=== PATIENT | female | born 1975 | race Caucasian/White ===

== ENCOUNTER 2019-09-14 20:40 | Emergency (ER) | payer MEDICARE, OTHER, SELFPAY ==
[2019-09-14 20:53] VITALS: BP 146/80; PULSE 72; RESP 20; TEMP 36.7; O2SAT 98; BMI 44.4
--- NOTE | 2019-09-14 20:56 | HMH.EDUTC ---
[facility] [place]ression: Strep throat, Abrasion Disposition: Home, Self-Care Condition on Discharge: Good Instructions: Strep Throat (Alternative Therapy), Strep Throat, DI for Strep Throat Additional Instructions: *Monitor Temp, Over the counter Motrin or Tylenol as directed/as needed Tylenol every 4 hours and Motrin every 6 hours (as long as your family doctor has told you that you can take it) for fever or pain. and straight to ER if unable to lower temp less than 101.0 after medication given *Warm salt water gargles may help to soothe the throat *Throat Lozenges *Warm fluids *Sleep elevated *Humidifier/Vaporizer *Flonase 2 sprays in each nostril daily but be aware that it may take 2-3 days before you notice improvement *If you did not take Penicillin shot or was unable to, start taking antibiotic immediately and make sure that you take it for the FULL length of time although you should start to feel better in 24-48 hours *change toothbrush and toothpaste 24-48 hours after starting to take antibiotics so you do not reinfect yourself Monitor Temp. Tylenol and/or Ibuprofen as needed. ER if fever is no less than 101 despite alternating Tylenol and Ibuprofen * Encourage fluids, water, Gatorade, powerade, pedialyte if /toddler/or child *Cold fluids, popsicles and ice cream may feel good on his throat Follow up IMMEDIATELY for new or worsening symptoms or no Noticeable improvement over the next 48-72 hours. 911 for difficulty breathing or swallowing Prescriptions: Bacitracin [Bacitracin Oint 0.9GM UDP] 1 each TP TID 7 Days #21 packet Transmission Status: Received by [facility] #[id number] Referrals: Justin Junior [Primary Care Provider] - As needed Time of Disposition: 21:05 Medical Decision Making - Gary Inquiry Pt receiving controlled substance: No Gary was queried for this patient: No Vital Signs: 09/14/19 20:53 09/14/19 21:10 Temperature 98.1 F 98.1 F Temperature Source Oral Pulse Rate 72 Pulse Rate [Right Brachial] 72 Respiratory Rate 20 20 Blood Pressure 146/80 H Blood Pressure [Right Arm] 146/80 H Blood Pressure Mean [Right Arm] 102 Blood Pressure Source [Right Arm] Automatic Cuff Blood Pressure Position [Right Arm] Sitting 02 Sat by Pulse Oximetry 98 Oxygen Delivery Method Room Air - Lab Data Lab results reviewed: Yes: I reviewed the patient's lab results. Lab Results 09/14/19 20:42: Strep Scn Rapid Clinic Positive A Orders (Tests/Meds): ED MEDICATIONS Discontinued Medications Generic Name Dose Route Start Last Admin Trade Name Paco PRN Reason Stop Dose Admin Penicillin G Benzathine 1,200,000 unit 09/14/19 20:58 09/14/19 21:00 Bicillin La 1,200,000 Units/2ml Syringe IM 09/14/19 20:59 1,200,000 unit ONCE ONE Administration Protocol - Reevaluation(s) Time: 21:02 Reevaluation #1: Discussed medication and patient advised that she is not allergic to PCN and has taken it before [facility] [place] - General Stated complaint: Sore throat Time Seen by Provider: 09/14/19 20:55 Mode of Arrival: Ambulatory Source of Information: Patient Limitations: No Limitations Description of Symptoms (Recalled from Triage Doc. by RN): PATIENT C/O SORE THROAT, COUGH, HEADACHES, AND TIREDNESS X 3 DAYS. DENIES FEVER. DENIES ANY KNOWN SICK CONTACTS HEENT Symptoms (Recalled from RN notes): Yes Resp Symptoms (Recalled from RN notes): Yes Skin Symptoms (Recalled from RN notes): No MS Symptoms (Recalled from RN notes): No Functional Status (Recalled from RN notes): WNL - History of Present Illness Provider Complaint: Patient states that she has been having sore throat that has got worse over the last few days States that she has also been feeling tired and having headaches States that she wasnt sure if she had allergies or something else so she came in to get checked when her throat was hurting worse this evening. Also wants to have abrasion looked at on h
[2019-09-14 20:59] LABS: UTC Strep Screen (Rapid) Positive (Negative)
[2019-09-14 21:10] VITALS: BP 146/80; PULSE 72; RESP 20; TEMP 36.7; O2SAT 98
== END 2019-09-14 21:20 | disposition home or self-care (01) ==
PROVIDERS: Emergency Provider Nurse Practitioner; PCP Pediatrics
DX: J02.0 Streptococcal pharyngitis (principal); S80.811A Abrasion, right lower leg, initial encounter; W26.8XXA Contact with other sharp object(s), not elsewhere classified, initial encounter; Y92.019 Unspecified place in single-family (private) house as the place of occurrence of the external cause
CPT/HCPCS: G0463; 87880; 96372; 99202; J0561

== ENCOUNTER 2019-10-07 18:00 | Emergency (ER) | payer MEDICARE, OTHER, SELFPAY ==
[2019-10-07 18:16] VITALS: BP 144/76; PULSE 71; RESP 20; TEMP 36.8; O2SAT 98; BMI 43.2
--- NOTE | 2019-10-07 18:23 | HMH.EDUTC ---
[facility] [place]: Strep throat Disposition: Home, Self-Care Condition on Discharge: Good Instructions: Strep Throat, Diarrhea, DI for Strep Throat, DI for Cough -- Adult, DI for Nausea -- Adult, Nausea and Vomiting-Adult, Ondansetron, Dicyclomine, Preventing the Spread of Coronavirus Discharge Instructions Additional Instructions: *If you did not take Penicillin shot or was unable to, start taking antibiotic immediately and make sure that you take it for the FULL length of time although you should start to feel better in 24-48 hours *change toothbrush and toothpaste 24-48 hours after starting to take antibiotics so you do not reinfect yourself Monitor Temp. Tylenol and/or Ibuprofen as needed. ER if fever is no less than 101 despite alternating Tylenol and Ibuprofen * Encourage fluids, water, Gatorade, powerade, pedialyte if infant/toddler/or child *Cold fluids, popsicles and ice cream may feel good on his throat ? Drink extra fluids with and between meals. If you have difficulty drinking, try very small amounts of water or suck on ice chips. ? Avoid fruit juices, as these do not replace minerals and can actually increase diarrhea. ? Children and adults can use sports drinks to replenish electrolytes. Younger children and infants should use products formulated for children, like oral rehydration solutions. ? Eat food in small amounts and let your stomach recover. ? Get lots of rest. You may feel tired or weak. ? No greasy or fried foods for the next 24-48 hours BRAT diet Bananas Rice Apples and Herald ? Make sure to drink plenty of liquids ? Return if needed ? Straight to ER if any life threatening symptoms ? Zofran as prescribed ? You was given an outpatient order for diarrhea panel, please collect specimen and bring back to outpatient lab then call back to the [facility] or follow up with family doctor for results ? Follow up with family doctor in the next 48-72 hours if no improvement or any worsening of symptoms Go home and self isolate as advised in [facility], you was given hand out with what to do, Call back to [facility] on Wednesday to see if your results are back. Follow up with Family doctor if no improvement or any worsening of symptoms Prescriptions: Ondansetron [Zofran 4mg ODT] 4 mg PO Q8HP PRN #12 tab.rapdis PRN Reason: Nausea Transmission Status: Received by [facility] # Dicyclomine HCl [Bentyl 10mg capsule] 10 mg PO TID PRN #15 cap PRN Reason: Cramping Transmission Status: Received by [facility] # Cefdinir [Omnicef 300mg Capsule] 300 mg PO BID #20 cap Transmission Status: Received by [facility] # Benzonatate [Tessalon Perle 100mg Cap*] 100 mg PO TID PRN #30 cap PRN Reason: Cough Transmission Status: Received by [facility] # Referrals: Justin Junior [Primary Care Provider] - As needed Time of Disposition: 18:56 Medical Decision Making - Gary Inquiry Pt receiving controlled substance: No Gary was queried for this patient: No Vital Signs: 10/07/19 18:16 Temperature 98.3 F Temperature Source Oral Pulse Rate [Left Brachial] 71 Respiratory Rate 20 Blood Pressure [Left Arm] 144/76 H Blood Pressure Mean [Left Arm] 98 Blood Pressure Source [Left Arm] Automatic Cuff Blood Pressure Position [Left Arm] Sitting 02 Sat by Pulse Oximetry 98 Oxygen Delivery Method Room Air - Lab Data Lab results reviewed: Yes: I reviewed the patient's lab results. Lab Results 10/07/19 18:15: Strep Scn Rapid Clinic Negative Orders (Tests/Meds): ED MEDICATIONS Generic Name Dose Route Start Last Admin Trade Name Freq PRN Reason Stop Dose Admin Cefdinir 300 mg 10/08/19 18:46 Omnicef 300mg Capsule PO 10/08/19 18:47 ONCE ONE Protocol Discontinued Medications Generic Name Dose Route Start Last Admin Trade Name Freq PRN Reason Stop Dose Admin Dicyclomine HCl 10 mg 10/07/19 18:45 Bentyl 10mg Capsule PO 10/07/19 18:46 ON
[2019-10-07 19:09] VITALS: BP 144/76; PULSE 71; RESP 20; TEMP 36.8; O2SAT 98
[2019-10-07 21:15] LABS: UTC Strep Screen (Rapid) Positive (Negative)
[2019-10-10 09:41] LABS: Covid-19 Nasal PCR Sendout UK NOT DETECTED
== END 2019-10-07 19:12 | disposition home or self-care (01) ==
PROVIDERS: Emergency Provider Nurse Practitioner; PCP Pediatrics
DX: J02.0 Streptococcal pharyngitis (principal)
CPT/HCPCS: G0463; 87880; 99202; U0003

== ENCOUNTER → 2020-01-25 12:47 | Outpatient (POV) | payer MEDICARE, OTHER, SELFPAY ==
[2020-01-25 13:28] VITALS: BP 144/74; PULSE 74; RESP 18; O2SAT 98; BMI 39.5
--- NOTE | 2020-01-25 15:21 | HMH.PMCON ---
Assessment and Plan (1) Low back pain Status: Acute Category: Medical Code(s): M54.5 - Low back pain (2) Lumbar radiculopathy Status: Acute Category: Medical Code(s): M54.16 - Radiculopathy, lumbar region - Assessment and plan all Dx Assessment and Plan for all problems:: We will schedule the patient for an MRI of her lumbar spine. We will plan to see her back in the clinic after her MRI to discuss a further plan of care and discuss her MRI results. Patient has been instructed to contact clinic if she has any concerns before next appointment. The patient and I specifically discussed risk factors for COVID19. These risks include, but are not limited to age greater than 60, heart or lung disease, diabetes, immunosuppression, and travel. We also discussed NSAIDs may worsen COVID19 infection or symptoms. Patient should not use NSAIDs to treat COVID19 signs or symptoms. Patient was also informed that any type of corticosteroid of any form (oral or injection) will decrease the patient's immune system response and may increase the likelihood of COVID19 infection and symptoms. Dr. Marshall has reviewed this note and agrees with this plan of care. This note was dictated using voice recognition software and make contain errors or omissions. HPI - Data of Consult Patient: new to practice Consult date: 01/25/20 Requesting Physician: Alie Cotter APRN Primary Care Provider: Referral Provider, - Consult Narrative Reason for consult: Low back pain, right leg pain, bilateral hip pain History of present illness: Ms. Liriano is a 44 year old female who presents today for consultation for low back pain with radiation into her bilateral hips, right leg, and bilateral buttocks. Patient says she has had this pain for the last 3 years which has been intermittent until the last few months. Now the pain is consistent. She previously lived in [place] where she had multiple rounds of injections there along with physical therapy for greater than 6 weeks. Patient did not get much relief with the injections or with physical therapy. She has taken Flexeril and diclofenac with no relief. She is also try to continued home stretching program with ice and heat therapies with no relief. Patient does have numbness and tingling that is going down to her right leg and into her right foot. She says this is new onset. She has not had any imaging of her spine. CC: Alie Cotter APRN [facility] History I have reviewed the patient's past medical history: Yes Medical History: Reports:: Hypertension Denies:: Cancer, Diabetes Mellitus Type 1, Diabetes Mellitus Type 2, MRSA *Have you ever received a pneumonia vaccine?: Yes *Have you received a flu vaccine this season?: Yes Other Surgeries: Yes: Hernia Repair Amputation: No Fractures: No - *Social History Alcohol Intake: never *Occupational Status:: other Housing: house Household Members: other *Travel in the last 8 weeks: None Family Hx:: Unable to obtain Review of Systems - Review of Systems Review of Systems General: No recent weight changes, no fever, no sleep disturbances Respiratory: No cough, no shortness of air, no recurring pulmonary infections Cardiovascular/peripheral vascular: No chest pain, no palpitations, no edema, no shortness of breath Gastrointestinal: No new onset incontinence, normal bowel movements reported Genitourinary: No new onset incontinence Musculoskeletal: Low back pain with radiation into bilateral hips, bilateral buttock, and right leg with numbness and tingling Psychiatric: Normal mood/affect Neurological: [Denies weakness in extremities], [denies balance issues] Meds Home Medications Medication Instructions Recorded Confirmed Type Metoprolol Succinate 100 mg PO DAILY 03/26/18 09/14/19 History Sertraline HCl [Zoloft 100mg 100 mg PO DAILY 03/26/18 09/14/19 History tablet] ALPRAZolam [Xanax 0.5mg tab] 0.5 mg PO BID
== END ==
PROVIDERS: Visit Provider Clinical Nurse Specialist Family Health
DX: M54.5 Low back pain (principal); M54.16 Radiculopathy, lumbar region
CPT/HCPCS: 99202

== ENCOUNTER → 2020-02-02 07:54 | Outpatient (CLI) | payer MEDICARE, OTHER, SELFPAY ==
--- NOTE | 2020-02-02 07:56 | MR_ITS ---
PROCEDURE: MR LUMBAR SPINE WO CON CLINICAL INDICATION: LOW BACK PAIN Low back pain, right leg numbness COMPARISON: No exams were available for comparison TECHNIQUE: Standard multiplanar multiecho sequences are performed without contrast. 3-D MIP and myelographic images are also rendered and reviewed FINDINGS: There is normal alignment. The spinal cord ends at the L2-L3 level. T12-L1: There are type 2 endplate changes at L2 superiorly and inferiorly. L1-L2: Unremarkable. L2-L3: Unremarkable. L3-L4: Unremarkable. L4-5: Mild disc desiccation with minimal bulging disc and mild facet and ligamentum hypertrophy. L5-S1: Minimal annular disc bulge. No extruded herniated disc or canal stenosis. IMPRESSION: Mild degenerative changes. Please see above for detail. No extruded herniated disc or canal stenosis Dictated by: Romie Gibson MD 02/03/2020 12:02 Romie Gibson MD in [place] 02/03/2020 12:02
== END ==
PROVIDERS: Visit Provider Clinical Nurse Specialist Family Health
DX: M54.5 Low back pain (principal)
CPT/HCPCS: 72148; 76376

== ENCOUNTER → 2020-02-12 09:57 | Outpatient (POV) | payer MEDICARE, OTHER, SELFPAY ==
--- NOTE | 2020-02-12 10:45 | P.CONS_ITS ---
[facility] Pain Management SOAP Note Subjective:: Is a pleasant 44-year-old white female who presents today for follow-up after MRI. Patient has a fairly benign MRI. She does have some minimal disc bulge. Patient rates her pain a 7 out of 10 today. Patient had injections in the past with no success. I discussed with her putting her on an anti-inflammatory for a month to see if this is beneficial for her. She agrees. Patient has been put on gabapentin however she states that she does not like the way that it feels we will DC this. ROS General: no recent weight change, no fever, no sleep disturbances Respiratory: no cough, no shortness of air, no recurring pulmonary infections Cardiovascular/Peripheral Vascular: No chest pain, No palpitations, no edema, no shortness of breath. Gastrointestinal: no new onset incontinence, normal bowel movements reported Genitourinary: no new onset incontinence Musculoskeletal: Back pain, leg pain at times Psychiatric: normal mood/ affect Neurological: [denies new onset weakness in extremities], [denies new onset balance issues] Objective:: Physical Exam General: Alert and oriented x3, no acute distress, pleasant and cooperative, [on room air] Lungs: Resps E/U, Symmetrical chest expansion, Eyes: PERRL Musculoskeletal: Flexion and extension of lumbar pain spine somewhat guarded secondary to pain, deep tendon reflexes normal, strength in upper and lower extremities [5/5], [abnormal gait noted] Neurological: speech clear, brand leader equal, no gross sensory deficits Assessment:: Degenerative disc disease lumbar spine back pain Plan:: We will start the patient on diclofenac 75 mg 1 p.o. twice daily. We will see her back in 4 weeks reassess her symptoms at that time she has been instructed to call the office if she has any issues prior to her next appointment. She will stop her gabapentin. Dr. Marshall has reviewed this note and agrees with this plan of care. This note was dictated using voice recognition software and may contain errors or omissions [facility] History I have reviewed the patient's past medical history: Yes Medical History: Reports:: Hypertension Denies:: Cancer, Diabetes Mellitus Type 1, Diabetes Mellitus Type 2, MRSA *Have you ever received a pneumonia vaccine?: Yes *Have you received a flu vaccine this season?: Yes Other Surgeries: Yes: Hernia Repair Amputation: No Fractures: No - *Social History Alcohol Intake: never *Occupational Status:: other Housing: house Household Members: other *Travel in the last 8 weeks: None Family Hx:: Unable to obtain
[2020-02-12 11:20] VITALS: BP 144/74; PULSE 74; RESP 18; O2SAT 98; BMI 42.5
== END ==
PROVIDERS: Visit Provider Clinical Nurse Specialist Family Health
DX: M51.36 Other intervertebral disc degeneration, lumbar region (principal)
CPT/HCPCS: 99212

== ENCOUNTER 2020-09-07 11:47 | Emergency (ER) | payer MEDICARE, OTHER, SELFPAY ==
[2020-09-07 11:50] VITALS: BP 134/86; PULSE 67; RESP 19; TEMP 36.7; O2SAT 97; BMI 34.9
[2020-09-07 12:21] LABS: UTC Strep Screen (Rapid) Positive (Negative)
--- NOTE | 2020-09-07 12:30 | HMH.EDUTC ---
[facility] [place] Clinical Impression: Strep throat Disposition: Home, Self-Care Condition on Discharge: Good Instructions: DI for Strep Throat Additional Instructions: Start antibiotics today be sure to take it as ordered with the full length of time although you should start feeling better in 24-48 hours. Change toothbrush and toothpaste 24-48 hours after starting antibiotics Tylenol or Motrin as needed for fever or pain Encourage fluids, water, Gatorade, Powerade, try cold fluids, popsicles, ice cream will make it feel better You are contagious for 24 hours. Avoid kissing anyone, no eating or drinking after anyone. You are contagious. Follow-up the ER for new or worsening symptoms or no noticeable improvement over the next 24-48 hours. Follow-up with PCP this week. Prescriptions: Azithromycin [Zithromax 250mg tab] 250 mg PO DIRECTED #6 tab Transmission Status: Pending to [facility] #[id number] Referrals: Justin Junior [Primary Care Provider] - Time of Disposition: 12:38 Medical Decision Making - Gary Inquiry Pt receiving controlled substance: No Vital Signs: 09/07/20 11:50 Temperature 98.1 F Temperature Source Oral Pulse Rate [Right Brachial] 67 Respiratory Rate 19 Blood Pressure [Right Arm] 134/86 Blood Pressure Mean [Right Arm] 102 Blood Pressure Source [Right Arm] Automatic Cuff Blood Pressure Position [Right Arm] Sitting 02 Sat by Pulse Oximetry 97 Oxygen Delivery Method Room Air - Lab Data Lab Results 09/07/20 11:53: Strep Scn Rapid Clinic Positive A [facility] [place] HPI - General Chief complaint: Urgent Treatment Center Stated complaint: sore throat, headache, neck pain Time Seen by Provider: 09/07/20 12:30 Mode of Arrival: Ambulatory Source of Information: Patient Limitations: No Limitations Description of Symptoms (Recalled from Triage Doc. by RN): PATIENT C/O SORE THROAT, HEADACHE, FATIGUE, NECK PAIN, AND EAR PAIN X 2 DAYS HEENT Symptoms (Recalled from RN notes): Yes Resp Symptoms (Recalled from RN notes): No Skin Symptoms (Recalled from RN notes): No MS Symptoms (Recalled from RN notes): No Functional Status (Recalled from RN notes): WNL - History of Present Illness Provider Complaint: 45 yr old female presents for sore throat,body aches, chills and armando ear pain for 2 days - Related Data Home Medications Medication Instructions Recorded Confirmed Metoprolol Succinate 100 mg PO DAILY 03/26/18 09/07/20 Sertraline HCl [Zoloft 100mg 150 mg PO DAILY 03/26/18 09/07/20 tablet] ALPRAZolam [Xanax 0.5mg tab] 0.5 mg PO BID 09/14/19 09/07/20 Previous Rx's Medication Instructions Recorded Azithromycin [Zithromax 250mg 250 mg PO DIRECTED #6 tab 09/07/20 tab] Allergies Allergy/AdvReac Type Severity Reaction Status Date / Time No Known Allergies Allergy Verified 03/26/18 19:59 - Worker's Comp Is this a Worker's Comp case?: No [facility] History - Hepatitis A Screen Drug use history?: No High risk sexual behaviors?: No History of sexually transmitted infection?: No Currently employed?: No Childcare worker?: No Do you have indoor plumbing?: Yes Do you have electricity?: Yes Attestation statement:: This patient has been screened for Hepatitis A risk factors. I have reviewed the patient's past medical history: Yes Medical History: Reports:: Cancer, Hypertension Denies:: Diabetes Mellitus Type 1, Diabetes Mellitus Type 2, MRSA Other Surgeries: Yes: Hernia Repair Amputation: No Fractures: No - Social History Alcohol Intake: never Occupational Status: other Housing: house Household Members: other Family Hx:: Unable to obtain ROS Obtained: Yes Systems reviewed as appropriate & no additional complaints - Constitutional Constitutional: Reports system reviewed and no additional complaints, except as docu, Denies fever(s) - Eyes Eyes: Reports system reviewed and no additional complaints, except as docu, Denies change in vision - ENT
[2020-09-07 13:02] VITALS: BP 134/86; PULSE 67; RESP 19; TEMP 36.7; O2SAT 97
== END 2020-09-07 13:04 | disposition home or self-care (01) ==
PROVIDERS: Emergency Provider Nurse Practitioner Family; PCP Pediatrics
DX: J02.0 Streptococcal pharyngitis (principal); I10 Essential (primary) hypertension
CPT/HCPCS: G0463; 87880; 99202

== ENCOUNTER → 2020-12-18 10:14 | Outpatient (CLI) | payer MEDICARE, OTHER, SELFPAY ==
--- NOTE | 2020-12-18 10:17 | US_ITS ---
PROCEDURE: US THYROID CLINICAL INDICATION: NONTOXIC SINGLE THYROID NODULE COMPARISON: CT CSWO CT CERVICAL SPINE W/O CONT from 12/01/2016 FINDINGS: Right lobe: 3.9 x 1.3 x 1.5 cm there is a 2.3 x 1.2 1.6 cm slightly hyperechoic nodule with some heterogeneous decreased echogenicity peripherally. No calcifications. The nodule is wider than tall and well-circumscribed. Left lobe: 3.7 x 1.2 x 1.4 cm with homogeneous echogenicity Isthmus: 4 x 2 mm isoechoic nodule in the right aspect of the isthmus without obvious calcifications well-circumscribed wider than tall Additional findings: IMPRESSION: T rads level 3 dominant nodule right lobe of the thyroid gland less than 2.5 cm. Please correlate with previous exam which is not available at the time of this review. If the nodule is stable then continued follow-up can be performed. If the nodule has grown excessively than ultrasound-guided FNA would be a consideration. The isthmus nodule is TR level 3 less than 1.5 cm. Suggest annual follow-up Dictated by: Romie Gibson MD 12/18/2020 13:56 Romie Gibson MD in [place] 12/18/2020 13:56
--- NOTE | 2020-12-18 10:17 | MM_ITS ---
PROCEDURE: MM DIG SCREENING MAMM BI W/CAD Digital Breast Tomosynthesis Included CLINICAL INDICATION: SCREENING COMPARISON: MG DMSB DIGITAL MAMM-SCREEN BILATERAL from 04/03/2010 MG MM MAMMO DIGITAL SCREENING W CAD BILAT from 11/19/2018 TECHNIQUE: Standard CC and MLO images and 3D Tomosynthesis was obtained. R2 CAD reviewed. FINDINGS: The breasts are heterogeneously dense which may obscure small masses. No suspicious appearing mass, malignant-appearing microcalcification, architectural distortion, or skin thickening.. Benign-appearing nodules are present on the right. These are not significantly changed. IMPRESSION: No change with no evidence of malignancy BI-RAD Category: 2 Benign Finding FOLLOW-UP: 1 YR 1 Year Follow-up (A letter has been sent to the patient regarding results of the study.) Dictated by: Romie Gibson MD 01/01/2021 13:16 Romie Gibson MD in [place] 01/01/2021 13:16
== END ==
PROVIDERS: PCP Pediatrics; Visit Provider Nurse Practitioner
DX: Z12.31 Encounter for screening mammogram for malignant neoplasm of breast (principal); E04.1 Nontoxic single thyroid nodule
CPT/HCPCS: 76536; 77063; 77067

== ENCOUNTER → 2021-03-25 11:01 | Outpatient (POV) | payer MEDICARE, OTHER, SELFPAY ==
[2021-03-25 11:27] VITALS: BP 192/62; PULSE 76; RESP 18; O2SAT 97; BMI 36.5
--- NOTE | 2021-03-25 11:33 | HMH.PMCON ---
Assessment and Plan (1) Bilateral sacroiliitis Status: Chronic Category: Medical Code(s): M46.1 - Sacroiliitis, not elsewhere classified (2) Low back pain Status: Chronic Category: Medical Code(s): M54.50 - Low back pain, unspecified - Assessment and plan all Dx Assessment and Plan for all problems:: Patient is here today for consultation for low back pain with radiation into bilateral buttock and groin. She also has pain in bilateral lower extremities stopping at the knee. She is tender to palpation to her bilateral SI joints with a positive Serina's, compression, distraction and Belle's test. She has tried ice and heat therapies as well as anti-inflammatories and chiropractic therapy for more than 6 weeks. We will schedule her for bilateral SI joint injections and see her back in the clinic following the injections for further evaluation. She is not on any anticoagulation therapy. Possible side effects of corticosteroids have been discussed with the patient. Risks and benefits of the procedure have been explained to the patient. Patient would like to proceed with the procedure. Patient has been instructed to contact the clinic with any concerns before the next appointment. Dr. Marshall has reviewed this note and agrees with this plan of care. This note was dictated using voice recognition software and make contain errors or omissions. HPI - Data of Consult Patient: new to practice Consult date: 03/25/21 Requesting Physician: Alie Cotter APRN - Consult Narrative Reason for consult: Low back pain with radiation into bilateral buttock History of present illness: Ms. Liriano is a 45 year old female who presents today for consultation for low back pain with radiation into bilateral buttock, groin and legs. Patient says that the pain is progressively worsening. She says it is near unbearable. She is having difficulty standing, walking, or sitting. She is also having difficulty leaning forward. The pain is at its worse when she is standing or walking and sitting. The patient has pain in her low back that goes into the buttock with sitting when raising legs she has pain in bilateral groin. The pain radiates into bilateral lower extremities stopping at the knee. She does have an MRI from 2019 that does show disc bulging with facet hypertrophy lumbar spine. She was given gabapentin at her previous visit in our clinic by Ladi Connors APRN. Unfortunately, the patient says the medication did not work well for her. She was then started on diclofenac, but reports the medication was never called in for her. The pain has continued to worsen for her. She says that she will have periods of sharp shooting stabbing pain in her low back and buttock. She says it is not initiated by movement. She is not having any numbness or tingling or any changes in bowel or bladder habit. She has been anti-inflammatories [id number] with minimal relief. She does report that right side pain has been worse than the left most recently. Today, the patient's pain is an 8 or 9 out of 10. She has tried ice and heat therapies as well as chiropractic therapy in the past and recently. She has not gotten any relief. Review of Systems General: No recent weight changes, no fever, no sleep disturbances Respiratory: No cough, no shortness of air, no recurring pulmonary infections Cardiovascular/peripheral vascular: No chest pain, no palpitations, no edema, no shortness of breath Gastrointestinal: No new onset incontinence, normal bowel movements reported Genitourinary: No new onset incontinence Musculoskeletal: Low back pain with radiation into bilateral buttock, groin and leg stopping at knee Psychiatric: [Normal mood/affect] Neurological: [Denies weakness in extremities], [denies balance issues] CC: Alie Cotter APRN [facility] History I have reviewed the patient's past medical history: Yes Medical History: Reports:: Cancer, Hyp
== END ==
PROVIDERS: Visit Provider Clinical Nurse Specialist Family Health
DX: M46.1 Sacroiliitis, not elsewhere classified (principal); M54.50 Low back pain, unspecified
CPT/HCPCS: 99202; G0463

== ENCOUNTER 2021-07-09 18:42 | Emergency (ER) | payer MEDICARE, OTHER, SELFPAY ==
[2021-07-09 20:45] VITALS: BP 158/69; PULSE 93; RESP 21; TEMP 37.9; O2SAT 99; BMI 38.0
--- NOTE | 2021-07-09 20:53 | HMH.EDUTC ---
[facility] [place] Clinical Impression: Viral syndrome Acute bronchitis Qualifiers: Bronchitis organism: unspecified organism Qualified Code(s): J20.9 - Acute bronchitis, unspecified Asthma exacerbation Qualifiers: Asthma severity: unspecified severity Asthma persistence: unspecified Qualified Code(s): J45.901 - Unspecified asthma with (acute) exacerbation Pharyngitis Qualifiers: Pharyngitis/tonsillitis etiology: unspecified etiology Qualified Code(s): J02.9 - Acute pharyngitis, unspecified Disposition: Home, Self-Care Condition on Discharge: Good Instructions: Asthma -- Adult, DI for Acute Bronchitis, DI for Viral Syndrome Additional Instructions: Drink plenty of fluids. Take tylenol or ibuprofen for pain or fever. Take the medications as directed. Follow up with your regular doctor. GO TO THE ER FOR ANY WORSENING SYMPTOMS Don't start the oral steroids until tomorrow, since you had the shot here today. The cough medication (promethazine dm) will make you drowsy, so don't drive or operate heavy machinery after taking it. Prescriptions: Promethazine/Dextromethorphan [Promethazine-Dm Syrup] 5 ml PO Q6HP PRN #240 ml PRN Reason: Cough Transmission Status: Received by [facility] # Ondansetron [Zofran 4mg ODT] 4 mg PO Q8HP PRN #20 tab PRN Reason: Nausea Transmission Status: Received by [facility] # methylPREDNISolone [Medrol] 4 mg PO DIRECTED 6 Days #21 packet Transmission Status: Received by [facility] # guaiFENesin [Mucinex 600mg tablet] 1 - 2 tab PO BIDP PRN #30 tab PRN Reason: Congestion Transmission Status: Received by [facility] # Azithromycin [Z-Rosalio 250mg Tab*] 250 mg PO UD DOSE PK #6 tab Transmission Status: Received by [facility] # Referrals: Justin Junior [Primary Care Provider] - Time of Disposition: 21:36 Medical Decision Making - Medical Records Medical records reviewed: No: I reviewed the patient's medical records. - Gary Inquiry Pt receiving controlled substance: No Vital Signs: 07/09/21 20:45 07/09/21 21:20 Temperature 100.3 F H 100.3 F H Temperature Source Oral Pulse Rate 63 Pulse Rate [Left] 93 H Respiratory Rate 21 21 Blood Pressure 158/69 H Blood Pressure [Right Arm] 158/69 H Blood Pressure Mean [Right Arm] 98 02 Sat by Pulse Oximetry 99 - Lab Data Lab results reviewed: Yes: I reviewed the patient's lab results. Lab Results 07/09/21 20:42: Group A Strep Rapid Negative 07/09/21 20:42: Influenza Type A Ag Negative, Influenza Type B Ag Negative 07/09/21 21:35: Chlamy pneumoniae PCR Not detected, Adenovirus (PCR) Not detected, B. pertussis DNA (PCR) Not detected, Coronavirus OC43 (PCR) Not detected, Coronavirus HKU1 (PCR) Not detected, Coronavirus 229E (PCR) Not detected, SARS-CoV-2 (PCR) Not detected, Coronavirus NL63 (PCR) Not detected, Human Metapneumovir PCR Not detected, Influenza A (H1) PCR Not detected, Influ A (H1N1/09) PCR Not detected, Influenza A (H3) PCR Not detected, Influenza Type A (PCR) Not detected, Influenza Type B (PCR) Not detected, M. pneumoniae (PCR) Not detected, Parainfluenza 1 (PCR) Not detected, Parainfluenza 2 (PCR) Not detected, Parainfluenza 3 (PCR) Not detected, Parainfluenza 4 (PCR) Not detected, RSV (PCR) Not detected, Entero/Rhino (PCR) Not detected Orders (Tests/Meds): ED MEDICATIONS Discontinued Medications Generic Name Dose Route Start Last Admin Trade Name Enriqueq PRN Reason Stop Dose Admin Ceftriaxone Sodium 1 gm 07/09/21 21:21 07/09/21 21:28 Ceftriaxone 1gm Vial IM 07/09/21 21:22 1 gm ONCE ONE Administration Lidocaine HCl 0 ml 07/09/21 21:21 07/09/21 21:28 Lidocaine 1% 5ml Pf Vial IM 07/09/21 21:22 2 ml ONCE ONE Administration Methylprednisolone Sodium Succinate 125 mg 07/09/21 21:21 07/09/21 21:28 Methylprednisolone Sod Succ 125mg Vial IM 07/09/21 21:22 125 mg ONCE ONE Administrat
[2021-07-09 20:54] LABS: UTC Influenza A Antigen Negative (Negative); UTC Influenza B Antigen Negative (Negative)
[2021-07-09 21:09] LABS: Strep Scrn Group A (Rapid) Negative (Negative)
[2021-07-09 21:20] VITALS: BP 158/69; PULSE 63; RESP 21; TEMP 37.9
[2021-07-09 21:38] LABS: Adenovirus,PCR Not Detected (NotDetected); Bordetella Pertussis Not Detected (NotDetected); Chlamydophila Pneumoniae, PCR Not Detected (NotDetected); Coronavirus 19, PCR Not Detected (NotDetected); Coronavirus 229E Not Detected (NotDetected); Coronavirus NL63 Not Detected (NotDetected); Coronavirus OC43 Not Detected (NotDetected); Coronovirus HKU1,PCR Not Detected (NotDetected); Human Metapneumovirus Not Detected (NotDetected); Influenza A, PCR Not Detected (NotDetected); Influenza AH1, 2009 Not Detected (NotDetected); Influenza AH1, PCR Not Detected (NotDetected); Influenza AH3,PCR Not Detected (NotDetected); Influenza B, PCR Not Detected (NotDetected); Mycoplasma Pneumoniae, PCR Not Detected (NotDetected); Parainfluenza 1, PCR Not Detected (NotDetected); Parainfluenza 2, PCR Not Detected (NotDetected); Parainfluenza 3, PCR Not Detected (NotDetected); Parainfluenza 4, PCR Not Detected (NotDetected); Respiratory Syncytial Virus Not Detected (NotDetected); Rhinovirus/Enterovirus Not Detected (NotDetected)
== END 2021-07-09 21:48 | disposition home or self-care (01) ==
PROVIDERS: Emergency Provider Nurse Practitioner Family; PCP Pediatrics
DX: J20.9 Acute bronchitis, unspecified (principal); J45.901 Unspecified asthma with (acute) exacerbation; B34.9 Viral infection, unspecified; I10 Essential (primary) hypertension
CPT/HCPCS: 87430; 87581; 87632; 87798; 87804; 99213; C9803; G0463; J0696; U0003; U0005

== ENCOUNTER → 2022-07-14 17:12 | Outpatient (CLI) | payer MEDICARE, OTHER, SELFPAY | PROVIDERS: PCP Student in an Organized Health Care Education/Training Program; Visit Provider Student in an Organized Health Care Education/Training Program | DX: J02.9 Acute pharyngitis, unspecified (principal); U07.1 COVID-19 | CPT/HCPCS: 87070; C9803; U0003; U0005 ==

== ENCOUNTER → 2022-09-11 12:54 | Outpatient (CLI) | payer MEDICARE, OTHER, SELFPAY ==
--- NOTE | 2022-09-11 13:00 | US_ITS ---
FINAL REPORT CLINICAL HISTORY: THYROID NODULE COMPARISON: December 2020 FINDINGS: THYROID ULTRASOUND Thyroid gland is normal size. The parenchyma shows normal echogenicity. 6 mm hypoechoic isthmus nodule previously measured 4 mm. Dominant isoechoic right thyroid mass measuring 26 x 16 x 13 mm previously measured 23 x 16 x 12 mm. This showed minimal increase in size. IMPRESSION: Stable to minimally enlarged isoechoic mass in the right thyroid compatible with a Ti RADS 3. Recommend 12-month follow-up. Reviewed, Interpreted and Dictated by Priscilla Floyd MD Transcribed by Dariusz Paul Authenticated and [facility]
== END ==
PROVIDERS: PCP Nurse Practitioner; Visit Provider Nurse Practitioner
DX: E04.1 Nontoxic single thyroid nodule (principal)
CPT/HCPCS: 76536

== ENCOUNTER 2022-10-05 16:07 | Emergency (ER) | payer MEDICARE, OTHER, SELFPAY ==
[2022-10-05 16:08] VITALS: BP 149/82; PULSE 72; RESP 18; TEMP 36.6; O2SAT 97; BMI 48.9
[2022-10-05 16:25] LABS: UTC Strep Screen (Rapid) Positive (Negative)
--- NOTE | 2022-10-05 16:41 | EXP.UTC ---
Discharge Plan Disposition Patient Disposition: Home, Self-Care Condition: Good Prescriptions Prescriptions: New amoxicillin [amoxicillin] 875 mg tablet 875 mg PO Q12H Qty: 20 0RF benzonatate [benzonatate] 100 mg capsule 100 mg PO TIDP PRN (Reason: Cough) Qty: 30 0RF methylprednisolone 4 mg Tablets,Dose Pack 4 mg PO DIRECTED Qty: 21 0RF No Action azithromycin [Zithromax Z-Rosalio] 250 mg tablet See Rx Instructions PO .COMPLEX Qty: 6 0RF Rx Instructions: For 250 mg dose pack: take 500 mg today (day 1), then 250 mg for 4 days (days 2-5) PO methylprednisolone 4 mg tablets,dose pack See Rx Instructions PO PER PKG DIR Qty: 21 0RF Rx Instructions: PO PER PKG DIR benzonatate 100 mg capsule 100 mg PO BID PRN (Reason: cough) Qty: 20 0RF alprazolam 0.5 MG tablet 0.5 mg PO BID metoprolol succinate 100 MG tablet extended release 24 hr 100 mg PO DAILY sertraline 100 MG tablet 150 mg PO DAILY meloxicam 7.5 MG tablet 7.5 mg PO DAILY Qty: 30 0RF Referrals Follow up/Referrals: Justin Junior [Primary Care Provider] - See instructions Activity Restrictions/Add. Instructions Additional Instructions/Restrictions: Drink plenty of fluids. Take tylenol or ibuprofen for pain or fever. Take the medications as directed. Follow up with your regular doctor. GO TO THE ER FOR ANY WORSENING SYMPTOMS Throw your tooth brush away and get a new one. Clinical Impressions Clinical Impression: Strep throat Instructions Patient Instructions: DI for Strep Throat, Strep Throat Discharge ED Provider: Mariusz Nice [facility] General Stated complaint: sore throat,abd pain, headache Mode of Arrival: Ambulatory Source of Information: Patient Limitations: No Limitations Time Seen by Provider: 10/05/22 16:40 Description of Symptoms (Recalled from Triage Doc. by RN): Patient reports sore throat, swelled throat, headache, nausea, upset stomach since yesterday. HEENT Symptoms (Recalled from RN notes): Yes Resp Symptoms (Recalled from RN notes): No Skin Symptoms (Recalled from RN notes): No MS Symptoms (Recalled from RN notes): No Functional Status (Recalled from RN notes): wnl History of Present Illness Provider Complaint: She reports that she has had a sore throat, chills, low grade fever and malaise since yesterday. Related Data Home Medications Medication Instructions Recorded Confirmed metoprolol succinate 100 mg 100 mg PO DAILY Hypertension 03/26/18 07/14/22 tablet,extended release 24 hr sertraline 100 mg tablet 150 mg PO DAILY Depression 03/26/18 07/14/22 alprazolam 0.5 mg tablet 0.5 mg PO BID Anxiety 09/14/19 07/14/22 Previous Rx's Medication Instructions Recorded meloxicam 7.5 mg tablet 7.5 mg PO DAILY #30 tabs 03/25/21 azithromycin 250 mg tablet See Rx Instructions PO .COMPLEX #6 07/14/22 (Zithromax Z-Rosalio) tabs benzonatate 100 mg capsule 100 mg PO BID PRN cough #20 caps 07/14/22 methylprednisolone 4 mg tablets in See Rx Instructions PO PER PKG DIR 07/14/22 a dose pack #21 tabs amoxicillin 875 mg tablet 875 mg PO Q12H #20 tabs 10/05/22 benzonatate 100 mg capsule 100 mg PO TIDP PRN Cough #30 caps 10/05/22 methylprednisolone 4 mg tablets in 4 mg PO DIRECTED #21 tabs 10/05/22 a dose pack Allergies Allergy/AdvReac Type Severity Reaction Status Date / Time No Known Allergies Allergy Verified 07/14/22 15:47 Worker's Comp Is this a Worker's Comp case?: No PFSH PFS Disclaimer: The information contained in this section may have been updated after the patient was seen, as this information can be updated by other users. Social History Smoking Status: Never smoker alcohol intake: never current occupational status: unemployed Travel in the last 8 weeks: None household members: other housing: house current occupational exposures/hazards: No ROS Obtained: Yes
[2022-10-05 17:05] VITALS: BP 149/82; PULSE 72; RESP 18; TEMP 36.6; O2SAT 97
== END 2022-10-05 17:06 | disposition home or self-care (01) ==
PROVIDERS: Emergency Provider Nurse Practitioner Family; PCP Pediatrics
DX: J02.0 Streptococcal pharyngitis (principal); R10.9 Unspecified abdominal pain; R51.9 Headache, unspecified
CPT/HCPCS: 87880; 99212; 99214; G0463

== ENCOUNTER → 2022-12-30 08:17 | Outpatient (CLI) | payer MEDICARE, OTHER, SELFPAY ==
--- NOTE | 2022-12-30 08:20 | MM_ITS ---
PROCEDURE INFORMATION: Exam: MG Bilateral Screening 3D Mammography Exam date and time: 12/30/2022 8:13 AM Age: 47 years old Clinical indication: Screening. No family history of breast cancer. TECHNIQUE: Imaging protocol: Bilateral Screening tomosynthesis and 2D mammography including computer-aided detection (CAD) when performed. COMPARISON: 1. MG MM DIG SCREENING MAMM BI W/CAD 12/18/2020 10:30 AM 2. MG MM MAMMO DIGITAL SCREENING W CAD BILAT 11/19/2018 12:53 PM 3. MG DMSB DIGITAL MAMM-SCREEN BILATERAL 04/03/2010 4:39 PM FINDINGS: MAMMOGRAPHY: Breast composition: The breasts are heterogeneously dense, which may obscure small masses. Mass: No suspicious mass. Architectural distortion: None. Calcifications: No suspicious calcifications. Asymmetric density: None. Skin thickening: None. Axillary adenopathy: None. IMPRESSION: No mammographic evidence of malignancy. Annual screening is recommended unless otherwise clinically indicated. ASSESSMENT: BI-RADS Category 1: Negative
== END ==
PROVIDERS: PCP Pediatrics; Visit Provider Nurse Practitioner
DX: Z12.31 Encounter for screening mammogram for malignant neoplasm of breast (principal)
CPT/HCPCS: 77063; 77067

== ENCOUNTER 2023-06-12 16:08 | Emergency (ER) | payer MEDICARE, OTHER, SELFPAY ==
[2023-06-12 16:25] VITALS: BP 158/98; PULSE 68; RESP 18; TEMP 36.8; O2SAT 97; BMI 52.6
--- NOTE | 2023-06-12 16:38 | EXP.UTC ---
Discharge Plan Disposition Patient Disposition: Still a Patient Prescriptions Prescriptions: No Action alprazolam 0.5 MG tablet 0.5 mg PO BID metoprolol succinate 100 MG tablet extended release 24 hr 100 mg PO DAILY sertraline 100 MG tablet 150 mg PO DAILY Referrals Follow up/Referrals: Justin Junior [Primary Care Provider] - See instructions Discharge ED Provider: Karla ([facility] [facility] [place] General Stated complaint: High blood pressure Mode of Arrival: Ambulatory Source of Information: Patient Limitations: No Limitations Time Seen by Provider: 06/12/23 16:38 Description of Symptoms (Recalled from Triage Doc. by RN): PATIENT C/O ELEVATED BLOOD PRESSURE, HEADACHES, DIZZINESS, HEART PALPATATIONS,CHEST PAIN AND SOA (EXERTION AND LYING DOWN) X 3 WEEKS. SHE STATES SYMPTOMS OCCURE DAILY. SHE ALSO C/O SWELLING TO LEFT FOOT AND RIGHT KNEE PAIN, NO KNOWN INJURY HEENT Symptoms (Recalled from RN notes): No Resp Symptoms (Recalled from RN notes): Yes Skin Symptoms (Recalled from RN notes): No MS Symptoms (Recalled from RN notes): Yes Functional Status (Recalled from RN notes): WNL History of Present Illness Provider Complaint: 48 YR OLD FEMALE PRESENTS FOR C/O ELEVATED BLOOD PRESSURE, HEADACHES, DIZZINESS, HEART PALPATATIONS, AND SOA (EXERTION AND LYING DOWN) X 3 WEEKS. SHE STATES SYMPTOMS OCCURE DAILY, BUT SEEM TO BE GETTING WORSE. SHE ALSO C/O SWELLING TO LEFT FOOT AND RIGHT KNEE PAIN, NO KNOWN INJURY, PT STATES SHE THINKS ITS HER HEART, PT STATES SHE HAS NOT SEEN HER PCP WANTED TO BE WORKED UP IN HOSPITAL FIRST Related Data Home Medications Medication Instructions Recorded Confirmed metoprolol succinate 100 mg 100 mg PO DAILY Hypertension 03/26/18 06/12/23 tablet,extended release 24 hr sertraline 100 mg tablet 150 mg PO DAILY Depression 03/26/18 06/12/23 alprazolam 0.5 mg tablet 0.5 mg PO BID Anxiety 09/14/19 06/12/23 Allergies Allergy/AdvReac Type Severity Reaction Status Date / Time No Known Allergies Allergy Verified 07/14/22 15:47 Worker's Comp Is this a Worker's Comp case?: No [facility] Disclaimer: The information contained in this section may have been updated after the patient was seen, as this information can be updated by other users. Social History , [employer]IL [employer]) Smoking Status: Never smoker alcohol intake: never current occupational status: unemployed Travel in the last 8 weeks: None household members: other housing: house current occupational exposures/hazards: No ROS Obtained: Yes All systems reviewed & no additional complaints except as documented Constitutional Constitutional: Reports system reviewed and no additional complaints, except as documented, Reports as per HPI and Reports headache(s) Eyes Eyes: Reports system reviewed and no additional complaints, except as documented ENT Ears, Nose, Mouth, and Throat: Reports system reviewed and no additional complaints, except as documented, Reports as per HPI, Reports dizziness and Reports headache(s) Cardiovascular Cardiovascular: Reports system reviewed and no additional complaints, except as documented, Reports as per HPI, Reports chest pain, Reports claudication, Reports lightheadedness, Reports orthopnea and Reports palpitations Respiratory Respiratory: Reports system reviewed and no additional complaints, except as documented, Reports as per HPI and Reports shortness of breath Gastrointestinal Gastrointestingal: Reports system reviewed and no additional complaints, except as documented Musculoskeletal Musculoskeletal: Reports system reviewed and no additional complaints, except as documented, Reports as per HPI and Reports limited range of motion Integumentary/Breasts Skin/Breast: Reports system reviewed and no additional complaints, except as documented Neurologic Neurologic: Reports system reviewed and no additional complaints, except as documented, Reports as per HPI, Reports dizziness and Reports headache(s) Endocrine Endocrine: Reports system reviewed and no additional complaints, except as documented and Reports palpitations Hematologic/Lymphatic Henatologic/Lymphatic: Reports system reviewed and no additional complaints, except as documented and Reports as per HPI Allergic/Immunologic Allergic/Immunologic: Reports system reviewed and no additional complaints, except as documented and Reports as per HPI Physical Exam General General appearance: alert and in no apparent distress Head Head exam: atraumatic Eye Eye exam: Present normal appearance and PERRL ENT ENT exam: Present normal exam, normal oropharynx, mucous membranes moist and TM's normal bilaterally Respiratory Respiratory exam: Present normal lung sounds bilaterally Cardiovascular Cardiovascular exam: Present regular rate and normal rhythm Neurological Exam Neurological exam: Present alert, oriented X3 and CN II-XII intact Skin Skin exam: Present warm and intact Medical Decision Making Medical Records Medical records reviewed: Yes I reviewed the patient's medical records. Gary Inquiry Pt receiving controlled substance: No Gary was queried for this patient: No Vital Signs: 06/12/23 16:25 Temperature 98.2 F Temperature Source Oral Pulse Rate [Left Brachial] 68 Respiratory Rate 18 Blood Pressure [Left Arm] 158/98 H Blood Pressure Mean [Left Arm] 118 Blood Pressure Source [Left Arm] Automatic Cuff Blood Pressure Position [Left Arm] Sitting 02 Sat by Pulse Oximetry 97 Oxygen Delivery Method Room Air Medical Decision Narrative: I explained to pt we could do labs,xray at [facility], pt states she thinks this is her heart and should would prefer to go to ed for more work up on her heart.
--- NOTE | 2023-06-12 17:25 | ECG_ITS ---
APPROVED REPORT Exam: Resting ECG HR:61 bpm ECG Measurements Heart Rate [address] 171 P 58 QRSd 90 QRS 71 QT 383 T 54 QTc 385 Conclusion SINUS RHYTHM Electronically signed by : HELIO GARCÍA, 06/12/2023 22:00:12
--- NOTE | 2023-06-12 17:26 | XR_ITS ---
PROCEDURE INFORMATION: Exam: XR Chest Exam date and time: 06/12/2023 6:08 PM Age: 48 years old Clinical indication: Pain; Chest pressure; Additional info: Chest pain TECHNIQUE: Imaging protocol: Radiologic exam of the chest. Views: 1 view. [facility]/01/2016 4:45 PM FINDINGS: Lungs: Normal. Pleural spaces: Normal No pleural effusion. No pneumothorax. Heart/Mediastinum: Normal. No cardiomegaly. Bones/joints: Unremarkable. IMPRESSION: No acute findings.
[2023-06-12 17:32] VITALS: BP 153/100; PULSE 63; RESP 18; O2SAT 96; BMI 50.1
--- NOTE | 2023-06-12 17:38 | XR_ITS ---
PROCEDURE INFORMATION: Exam: XR Right Knee Exam date and time: 06/12/2023 6:08 PM Age: 48 years old Clinical indication: Pain; Knee; Right TECHNIQUE: Imaging protocol: Radiologic exam of the right knee. Views: 1 or 2 views. COMPARISON: No relevant prior studies available. FINDINGS: Bones/joints: No fracture or dislocation. No focal osseous lesion. Mild tricompartmental degenerative joint disease. Small suprapatellar joint effusion. Soft tissues: Normal. IMPRESSION: 1. Mild tricompartmental degenerative joint disease. 2. Small knee joint effusion.
[2023-06-12 17:44] LABS: Basophils # 0.1 K/mm3 (0-0.2); Basophils % 0.9 % (0.1-2.0); Eosinophils # 0.2 K/mm3 (0.0-0.4); Eosinophils % 2.5 % (0.1-12.0); Hematocrit 35.5 % (37.0-47.0); Lymphocytes # 1.7 K/mm3 (0.7-4.5); Lymphocytes % 18.4 % (10-50); Mean Corpuscular Hemoglobin 24.3 pg (27.0-31.2); Mean Corpuscular Volume 78.4 fl (81-99); Monocytes # 0.4 K/mm3 (0.1-1.0); Neutrophils # 6.9 K/mm3 (1.8-7.8); Neutrophils % 74.3 % (37.0-80.0); Platelet Count 265 K/mm3 (142-424); Red Blood Count 4.53 M/mm3 (4.20-5.40); Red Cell Distribution Width 15.9 % (11.5-17.5); White Blood Count 9.3 K/mm3 (4.8-10.8)
[2023-06-12 17:48] LABS: Alanine Aminotransferase 19 U/L (12-78); Albumin Level 3.7 g/dl (3.5-5.0); Albumin/Globulin Ratio 1.2 (1.1-1.8); Alkaline Phosphatase 83 U/L (38-126); Aspartate Amino Transferase 38 U/L (14-36); Bilirubin,Total 0.5 mg/dl (0.2-1.3); Blood Urea Nitrogen 10 mg/dl (7-17); Calcium 8.5 mg/dl (8.4-10.2); Carbon Dioxide 31 mmol/L (22.0-30.0); Chloride 104 mmol/L (98-107); Creatinine Clearance Estimated 99 mL/min (50-200); Estimated Glomerular Filt Rate 89 ml/min (>60); GFR (African American) 108 ML/MIN (>60); Globulin 3.1 g/dL (1.3-3.2); Glucose 88 mg/dl (74-100); Sodium 137 mmol/L (136-145); Total Protein,Serum 6.8 g/dl (6.3-8.2)
[2023-06-12 17:57] LABS: NT Pro Brain Natriuretic Pep. 800 pg/mL (0-125)
[2023-06-12 18:00] LABS: Troponin I < 0.01 ng/ml (0.00-0.034)
--- NOTE | 2023-06-12 18:15 | ED_ITS ---
Discharge Plan Disposition Patient Disposition: Home, Self-Care Condition: Good Prescriptions Prescriptions: New hydrochlorothiazide 25 mg tablet 25 mg PO DAILY Qty: 30 2RF No Action alprazolam 0.5 MG tablet 0.5 mg PO BID metoprolol succinate 100 MG tablet extended release 24 hr 100 mg PO DAILY sertraline 100 MG tablet 150 mg PO DAILY Referrals Follow up/Referrals: Justin Junior [Primary Care Provider] - See instructions Ishaan Marion MD [Staff Physician] - See instructions Activity Restrictions/Add. Instructions Additional Instructions/Restrictions: Call your family doctor to establish care for this visit to the emergency department and schedule follow-up within 48 hours to ensure improvement. If you have any worsening of your condition or any other concerning signs or symptoms, return to the emergency department or your primary care doctor for further evaluation. Hydrochlorothiazide once daily. Follow-up with your family doctor regarding this visit to the emergency department and further monitoring of her blood pressure, medication refills, and kidney function while using diuretic. Cardiology follow-up has been listed here, call their office to schedule follow- up for further outpatient echocardiogram (ultrasound) as well as heart workup to establish cause of fluid retention. Clinical Impressions Clinical Impression: Hypertension, Body fluid retention, New onset of congestive heart failure Discharge ED Provider: Madhu Smith General Adult HPI General Chief complaint: PAIN Stated complaint: High blood pressure Time Seen by Provider: 06/12/23 16:38 Mode of Arrival: Ambulatory Source of Information: Patient and Medical Record Limitations: No Limitations Description of Symptoms (Recalled from ER Triage Doc. by RN): c/o midsternal chest pain for 3 weeks with palpatations, SALDANA and high bp, soa with excertion, left foot swelling for 2 days, right knee pain that is painful with ambulation for 2 months History of Present Illness HPI narrative: This is a 48-year-old female with history of hypertension presenting with intermittent chest pains, difficulty lying flat. This is been going on for about 3 weeks. She states that she is also had bilateral lower extremity swelling, left greater than right over the past few days. Right knee pain as well. This is nontraumatic. Shortness of breath and chest pressure are worse with lying flat and exertion. Denies diaphoresis, overt chest pain, or any other concerns. Currently asymptomatic Related Data Home Medications Medication Instructions Recorded Confirmed metoprolol succinate 100 mg 100 mg PO DAILY Hypertension 03/26/18 06/12/23 tablet,extended release 24 hr sertraline 100 mg tablet 150 mg PO DAILY Depression 03/26/18 06/12/23 alprazolam 0.5 mg tablet 0.5 mg PO BID Anxiety 09/14/19 06/12/23 Previous Rx's Medication Instructions Recorded hydrochlorothiazide 25 mg tablet 25 mg PO DAILY #30 tabs 06/12/23 Allergies Allergy/AdvReac Type Severity Reaction Status Date / Time No Known Allergies Allergy Verified 07/14/22 15:47 [facility] Disclaimer: The information contained in this section may have been updated after the patient was seen, as this information can be updated by other users. Social History (Reviewed 06/12/23 @ 16:45 by Florencia Acosta ([facility]), DECISION ANALYST) Smoking Status: Never smoker alcohol intake: never current occupational status: unemployed Travel in the last 8 weeks: None household members: other housing: house current occupational exposures/hazards: No ROS Obtained: Yes All systems reviewed & no additional complaints except as documented Physical Exam General General appearance: alert and in no apparent distress Head Head exam: atraumatic and normocephalic Eye Eye exam: Present normal appearance, PERRL and EOMI ENT ENT exam: Present mucous membranes moist Neck Neck exam: Present trachea midline Chest Chest inspection: Present normal inspection and symmetric chest wall rise Respiratory Respiratory exam: Present normal lung sounds bilaterally; Absent respiratory distress, wheezes, stridor, accessory muscle use or prolonged expiratory phase Cardiovascular Cardiovascular exam: Present regular rate and normal rhythm Abdominal Exam Abdominal exam: Present soft; Absent distention, tenderness, guarding, rebound or rigidity Extremities Exam Extremities exam: Present edema Neurological Exam Neurological exam: Present alert, oriented X3 and CN II-XII intact Skin Skin exam: Present warm and dry; Absent cyanosis, diaphoresis or pallor Medical Decision Making Medical Records Medical records reviewed: Yes I reviewed the patient's medical records. Gary Inquiry Pt receiving controlled substance: No Gary was queried for this patient: No Vital Signs: 06/12/23 16:25 06/12/23 17:32 06/12/23 19:20 Temperature 98.2 F 97.6 F Temperature Source Oral Oral Pulse Rate 65 Pulse Rate [Left Brachial] 68 63 Respiratory Rate 18 18 17 Blood Pressure 183/84 H Blood Pressure [Left Arm] 158/98 H 153/100 H Blood Pressure Mean [Left Arm] 118 117 Blood Pressure Source Automatic Cuff Blood Pressure Source [Left Arm] Automatic Cuff Blood Pressure Position Sitting Blood Pressure Position [Left Arm] Sitting 02 Sat by Pulse Oximetry 97 96 Oxygen Delivery Method Room Air Room Air Room Air Lab Data Lab Results 06/12/23 17:30: WBC 9.3, RBC 4.53, Hgb 11.0 L, Hct 35.5 L, MCV 78.4 L, MCH 24.3 L, MCHC 31.0 L, RDW 15.9, Plt Count 265, MPV 8.0, Neut % (Auto) 74.3, Lymph % (Auto) 18.4, Evangeline % (Auto) 4.0, Eos % (Auto) 2.5, Baso % (Auto) 0.9, Neut # (Auto) 6.9, Lymph # (Auto) 1.7, Evangeline # (Auto) 0.4, Eos # (Auto) 0.2, Baso # (Auto) 0.1, Sodium 137, Potassium 4.0, Chloride 104, Carbon Dioxide 31 H, Anion Gap 6.0, BUN 10, Creatinine 0.70, Estimated Creat Clear 99, Estimated GFR 89, Est GFR ( Amer) 108, Glucose 88, Calcium 8.5, Total Bilirubin 0.5, AST 38 H, ALT 19, Alkaline Phosphatase 83, Troponin I < 0.01, NT-Pro-B Natriuret Pep 800 H, Total Protein 6.8, Albumin 3.7, Globulin 3.1, Albumin/Globulin Ratio 1.2 06/12/23 17:30 06/12/23 17:30 Orders (Tests/Meds): ED MEDICATIONS Discontinued Medications Generic Name Dose Route Start Last Admin Trade Name Freq PRN Reason Stop Dose Admin Furosemide 40 mg 06/12/23 18:42 06/12/23 18:52 Furosemide 40mg/4ml Vial IV 06/12/23 18:43 Not Given ONCE ONE Furosemide 40 mg 06/12/23 18:52 06/12/23 18:54 Furosemide 40 Mg Tablet PO 06/12/23 18:53 40 mg ONCE ONE Administration ORDERS Category Date Time Status Chest XR -- portable [XR chest portable] Stat Exams 06/12/23 17:26 Completed Knee XR right 2 views [XR knee RT 2V] Stat Exams 06/12/23 17:38 Completed Brain Natriuretic Peptide Stat Lab 06/12/23 17:30 Completed Complete Blood Count Auto Diff Stat Lab 06/12/23 17:30 Completed Comprehensive Metabolic Panel Stat Lab 06/12/23 17:30 Completed Troponin I Stat Lab 06/12/23 17:30 Completed ECG initial Besson Routine Y 06/12/23 17:25 Completed HEART Score History (anamnesis): Moderately suspicious ECG: Normal Age: 45-65 years Risk factors: 1-2 risk factors Troponin: </= normal limit HEART Score: 3 Medical Decision Narrative: This is a 48-year-old female with history of hypertension presenting with intermittent chest pains, difficulty lying flat. This is been going on for about 3 weeks. She states that she is also had bilateral lower extremity swelling, left greater than right over the past few days. Right knee pain as well. This is nontraumatic. Shortness of breath and chest pressure are worse with lying flat and exertion. Denies diaphoresis, overt chest pain, or any other concerns. Currently asymptomatic. History was obtained via conversation with patient. On arrival, patient hemodynamically stable, alert, oriented x4, appropriate, GCS 15, moving all extremities spontaneously, pupils equal and reactive to light. Full physical exam performed and significant for very well-appearing woman in no acute distress. Cardiac exam with normal cardiac sounds, equal and symmetric pulses. She does however, have 2+ bilateral lower extremity pitting edema. Lungs are clear to auscultation. Differential includes diastolic versus systolic heart failure, ACS, RI, arrhythmia, A-fib, among others. Patient was given 40 mg p.o. Lasix for symptomatic management and correction of underlying abnormalities. Workup independently interpreted and significant for No leukocytosis or actionable CBC. Chemistry with normal kidney function and electrolytes. Troponin negative, BNP elevated 800. Chest x-ray with pulmonary vascular congestion, but no overt edema. See radiology read for full review of final results. Independent interpretation of EKG shows sinus rhythm [address] or T wave changes concerning for acute ischemia. [place] normal, AR, QRS, QT intervals within normal limits. Heart score 3. On reevaluation, patient resting comfortably in bed tolerated Lasix without issue. Given patient presentation, workup, history, this most likely represents fluid overload and concern for developing heart failure in the setting of chronic hypertension. Because patient failure well-appearing, not requiring oxy gen, in no acute distress, normal troponin, deemed appropriate for outpatient management. Patient is agreeable to this plan. Because patient at baseline without signs or symptoms of clinical decompensation, deemed appropriate for discharge. Results were relayed to patient who voiced understanding and were agreeable to outpatient management and follow up. At the time of discharge the patient was hemodynamically stable, tolerating PO, and mobilizing appropriately. Critical Care Critical Care Time Critical Care Time: No
[2023-06-12] MEDS: FUROSEMIDE 40 MG TABLET PO (18:54)
--- NOTE | 2023-06-12 19:01 | PC.NURSE ---
Dr. Smith at BS to update pt on POC
[2023-06-12 19:20] VITALS: BP 183/84; PULSE 65; RESP 17; TEMP 36.4; O2SAT 98
== END 2023-06-12 19:21 | disposition home or self-care (01) ==
LOC: UTC 16:48 → ER 17:21
PROVIDERS: Emergency Provider Emergency Medicine; PCP Pediatrics
DX: R07.9 Chest pain, unspecified (principal); R00.2 Palpitations; R51.9 Headache, unspecified; R06.02 Shortness of breath; R22.41 Localized swelling, mass and lump, right lower limb; R22.42 Localized swelling, mass and lump, left lower limb; M25.561 Pain in right knee; I10 Essential (primary) hypertension; I50.9 Heart failure, unspecified
CPT/HCPCS: 71045; 73560; 80053; 83880; 84484; 85025; 93005; 99285

== ENCOUNTER 2023-06-16 11:33 | Outpatient (CLI) | payer MEDICARE, OTHER, SELFPAY | END 2023-06-16 23:59 | LOC: RT 11:34 | PROVIDERS: PCP Pediatrics; Visit Provider Physician Assistant | DX: R00.2 Palpitations (principal) | CPT/HCPCS: 93270 ==

== ENCOUNTER 2023-07-02 09:04 | Outpatient (CLI) | payer MEDICARE, OTHER, SELFPAY ==
--- NOTE | 2023-07-02 09:05 | CT_ITS ---
APPROVED REPORT Machine [employer] Technology Instructor: CLINICAL INDICATION Chest Pain TECHNIQUE Image Acquisition: A 128 slice MDCT scanner ([employer]) was used for data acquisition. A noncontrast coronary calcium scan was performed. A CT attenuation threshold of 130 Hounsfield units (HU) was used for the detection of calcium in contiguous voxels of 1 sq mm in area to be counted as individual lesions. Bolus tracking in the ascending aorta with a threshold of 180 HU was performed. Immediately afterwards, ECG synchronized cardiac CT was then performed from the cardiac base to apex using retrospective gating with ECG tube current modulation. A total of 85 mL of Isovue 370 mg/mL contrast medium was administered at 5 mL/sec followed by a saline flush using a biphasic injection protocol. A tube voltage of 120 KVp was used. The patient received the following medications prior to the cardiac CT. 75 mg of oral metoprolol 5 mg of intravenous metoprolol 15 mg of oral ivabradine 0.8 mg of sublingual nitroglycerin The average heart rate at the time of acquisition was 63 bpm and regular. Image Reconstruction Transaxial images were reconstructed at 0.67 mm slide thickness. Data was reviewed interactively on an advanced workstation capable of 2 and 3-dimensional displays in all conventional reconstruction formats, including multiplanar reformations, maximum intensity projections, curved multiplanar reformations, and volume rendered reconstructions. When applicable, selected routine images describing the relevant coronary anatomy and pathology were saved and sent to PACS. Complications None Technical Quality Overall image quality was suboptimal due to significant motion. Coronary artery opacification was suboptimal. Total DLP (Dose-Length Product) is 1653.3 mGy-cm. The reported value represents the total of one or more individual components during the CT acquisition of this date and at this time, and as such, the same value may appear in more than one CT report depending on the interpreting/reporting physicians. COMPARISON None FINDINGS CT Coronary Calcium Scoring LMA (Left Main Artery) = 0 LAD (Left Anterior Descending) = 0 LCX (Left Coronary Circumflex) = 0 RCA (Right Coronary Artery) = 0 Total Calcium Score = 0 using the AJ-130 method. The interpretation of the calcium heart score is based on the following continuum*: 0 = no calcified plaque detected (risk of coronary artery disease is very low ??? less than 5%) 1-10 = calcium detected in extremely minimal levels (risk of coronary diseases is still low ??? less than 10%) 11-100 = mild levels of plaque detected with certainty (mild or minimal narrowing of heart arteries is likely) 101-400 = definite,at least moderate levels of plaque detected (relatively high risk of a heart attack within 3-5 years) >401-999 = extensive levels of plaque detected (high risk of heart attack, high levels of vascular disease are present, high likelihood of at least one significant coronary narrowing) *The calcium heart score quantifies the burden of coronary calcification/plaque in the coronary arteries. The calcium heart score is not able to evaluate the presence or burden of non-calcified (i.e. soft) plaque. There is no identifiable calcification in the aortic valve, mitral annulus or mitral valve, pericardium, or myocardium. Coronary CT Angiography The coronary arterial system is right dominant. Quantitative Stenosis Grading: Left Main (LM): The left main originates normally from the left sinus of Valsalva. The LM bifurcates into the left anterior descending artery and left circumflex artery. The LM is patent with no evidence of atherosclerosis. Left Anterior Descending (LAD) and Diagonal Branches: The LAD gives off 3 diagonal branches. The LAD and its branches are patent with no evidence of atherosclerosis. There is no evidence of LAD-myocardial bridge. Left Circumflex (LCX) and Obtuse Marginals (OM): The LCX gives off 1 Obtuse Marginal (OM) branch. The LCX and its branches are patent with no evidence of atherosclerosis. Right Coronary Artery (RCA): The RCA originates normally from the right sinus of Valsalva. The RCA gives off a posterior descending artery (PDA) and posterolateral (PL) branches. The RCA and its branches are patent with no evidence of atherosclerosis. Non-Coronary Cardiac Findings: Analysis of the left ventricular (LV) structure and function was performed after 3-D reconstruction of the LV from axial images, with user-corrected automatic contouring for assessment of LV volumes and user-defined reconstruction from oblique planes for measurement of 3-D cardiac structure and function. -The left ventricle systolic function is normal. -There is no left atrial appendage filling defect. Two right pulmonary veins and two left pulmonary veins drain normally into the left atrium. -No pericardial thickening or calcification. -Central and branch pulmonary arteries in the [id number] are unremarkable. -Thoracic aorta within the visualized thoracic aortic-branches in the [id number] is unremarkable. Extracardiac Structures No significant extra-cardiac findings. Note, however, that this study is focused on the cardiac findings. IMPRESSION -Technically difficult study due to significant motion. -Absence of coronary calcification with an Agatston score = 0 using the AJ-130 method. -No evidence of significant flow-limiting atherosclerosis of the coronary arteries. -CAD-RADS 0. Management recommendations per ACC/AHA guidelines*, as clinically appropriate. *Recommendations: CAD RADS 0: Reassurance. Consider non-atherosclerotic causes of chest pain. CAD RADS 1: Consider non-atherosclerotic causes of chest pain. Consider preventive therapy and risk factor modification. CAD RADS 2: Consider non-atherosclerotic causes of chest pain. Consider preventive therapy and risk factor modification, particularly for patients with nonobstructive plaque in multiple segments. CAD RADS 3: Consider further functional testing. Consider symptom-guided anti-ischemic and preventive pharmacotherapy as well as risk factor modification per published guideline statements. CAD RADS 4A: Consider further functional testing or invasive coronary angiography with revascularization per published guideline statements. Consider symptom-guided anti-ischemic and preventive pharmacotherapy as well as risk factor modification per published guideline statements. CAD RADS 4B: Invasive coronary angiography recommended with revascularization per published guideline statements. Consider symptom-guided anti-ischemic and preventive pharmacotherapy as well as risk factor modification per published guideline statements. CAD RADS 5: Consider invasive angiography and/or viability assessment with revascularization per published guideline statements. Consider symptom-guided anti-ischemic and preventive pharmacotherapy as well as risk factor modification per published guideline statements. CRITICAL RESULT None COMMUNICATION Per this written report The coronary and cardiac findings of this CCTA were reviewed, reported, and signed by Wilmer Bartholomew MD (Oil Developer) Conclusion Electronically signed by : Marianne Bartholomew MD 07/07/2023 11:42:37
--- NOTE | 2023-07-02 09:10 | CA_ITS ---
APPROVED REPORT EXAM: Comprehensive 2D, Doppler, and color-flow Echocardiogram Fee Clerk: Yessy Banerjee CRT Ht: 5 ft 8 in Wt: 332lbs BSA: 2.54 BP: 124/88 mmHg Indications: Shortness of Breath, Obesity, Palpitations, Fatigue, Peripheral Edema, Hypertension/HDD 2D Dimensions LA Volume 46.80 mL LA Volume Index 18.00 mL/m2 (M/F) 16-34 M-Mode Dimensions RVDd 2.98 cm (0.9-2.6) LA Diam 4.05 cm (1.9-4.0) LVDd 5.89 cm (3.5-5.7) LVDs 3.74 cm (3.5-5.7) IVSd 1.26 cm (0.6-1.1) PWd 0.87 cm (0.6-1.1) EF (Teich) 65.40% FS 36.50% EDV (Teich) 172.50 mL ESV (Teich) 59.60 mL LV Diastology E Decel Time 173 (160-240 msec) E/A Ratio 1.19 MED A' 9.50 cm/s LAT A' 7.50 cm/s Aortic Valve AO Peak GR. 8.30 mmHg Mitral Valve MV E Max Abraham. 81.0 (40-130 cm/s) MV A Velocity 68.0 (40-130 cm/s) E/A Ratio 1.19 MV PHT 51.0 ms Pulmonary Valve PV Peak Velocity 165.0 (50-150 cm/s) Tricuspid Valve TR P. Velocity 170.00 cm/s RAP Estimate 10.00 mmHg RVSP 21.60 mmHg Left Ventricle The left ventricle is normal size. The left ventricular systolic function is low-normal. There is normal left ventricular wall thickness. There is normal LV segmental wall motion. The left ventricular diastolic function is normal. LVEF is 50%. Right Ventricle The right ventricle is normal size. The right ventricular systolic function is normal. Atria The left atrium size is normal. The right atrium size is normal. There is no Doppler evidence of interatrial shunt. Aortic Valve The aortic valve opens well. There is no aortic valvular stenosis. No aortic regurgitation is present. Mitral Valve The mitral valve is normal in structure. No evidence of mitral valve stenosis. Trace mitral regurgitation. Tricuspid Valve The tricuspid valve leaflets are thin and pliable. Trace tricuspid regurgitation. There is insufficient TR jet to estimate RVSP. Pulmonic Valve The pulmonary valve is normal in structure. Mild pulmonic regurgitation. Great Vessels The aortic root is normal in size. The ascending aorta is normal in size. IVC is normal in size and collapses >50% with inspiration. Pericardium There is no pericardial effusion. Other Information Study Quality: Fair Conclusion Low-normal LV systolic function (LVEF 50%). Normal RV size and function. No significant valvular stenosis or regurgitation. Electronically signed by : Marianne Bartholomew MD 07/06/2023 21:45:55
[2023-07-02 09:25] VITALS: BMI 50.1
[2023-07-02] MEDS: METOPROLOL TARTRATE 50MG TABLET *IVABRADINE+METOPROLOL REGIMINE 50 MG PO (09:32)
[2023-07-02] MEDS: IVABRADINE HCL 7.5MG TABLET *IVABRADINE+METOPROLOL REGIMINE 15 MG PO (09:32)
[2023-07-02] MEDS: METOPROLOL TARTRATE 25MG TABLET *IVABRADINE+METOPROLOL REGIMINE 25 MG PO (09:32)
[2023-07-02 09:35] LABS: Urine Pregnancy, HCG Qual. Negative (Negative)
[2023-07-02 10:13] VITALS: BP 152/98; PULSE 67; RESP 16; O2SAT 94
[2023-07-02] MEDS: NITROGLYCERIN 0.4MG SL TABLET 0.800000000000000044 MG SL (10:13)
[2023-07-02 10:16] VITALS: BP 127/80; PULSE 62; RESP 16; O2SAT 96
[2023-07-02 10:19] VITALS: BP 147/83; PULSE 60; RESP 16; O2SAT 95
[2023-07-02] MEDS: METOPROLOL TARTRATE 5MG/5ML VIAL *IVABRADINE+METOPROLOL REGIMINE 5 MG IV (10:19)
[2023-07-02] MEDS: SODIUM CHLORIDE 0.9% 10ML SYR (RAD ONLY) 10 ML IV (10:26)
[2023-07-02] MEDS: 0.9 % SODIUM CHLORIDE 50 ML VIAL IV (10:26)
[2023-07-02] MEDS: IOPAMIDOL-370 (76%);100ML BOTTLE 100 ML IV (10:26)
[2023-07-02 10:32] VITALS: BP 116/75; PULSE 64; RESP 18; O2SAT 95
== END 2023-07-02 23:59 ==
LOC: RAD 09:05
PROVIDERS: PCP Pediatrics; Visit Provider Physician Assistant
DX: R06.09 Other forms of dyspnea; R07.89 Other chest pain; R00.2 Palpitations; R42 Dizziness and giddiness; I10 Essential (primary) hypertension; R60.0 Localized edema; R79.89 Other specified abnormal findings of blood chemistry; Z82.49 Family history of ischemic heart disease and other diseases of the circulatory system
CPT/HCPCS: 75571; 75574; 81025; 93306; Q9967

== ENCOUNTER 2023-08-26 16:55 | Emergency (ER) | payer MEDICARE, OTHER, SELFPAY ==
[2023-08-26 17:35] VITALS: BP 177/92; PULSE 63; RESP 18; TEMP 36.9; O2SAT 97; BMI 48.6
--- NOTE | 2023-08-26 17:54 | EXP.UTC ---
Discharge Plan Disposition Patient Disposition: Home, Self-Care Condition: Good Prescriptions Prescriptions: New amoxicillin-pot clavulanate 875-125 mg Tablet 1 tab PO Q12H Qty: 20 0RF mupirocin 2 % ointment 1 applic topical TID 10 Days Qty: 22 0RF No Action levothyroxine 75 mcg tablet 75 mcg PO DAILY Patient Comments: TAKE 1 TABLET BY MOUTH DAILY diclofenac sodium 50 mg tablet,delayed release (DR/EC) 50 mg PO BID Patient Comments: TAKE 1 TABLET BY MOUTH TWICE DAILY WITH FOOD NEEDED FOR PAIN bumetanide 2 mg tablet 2 mg PO BID PRN (Reason: edema) Qty: 60 2RF dapagliflozin propanediol [Farxiga] 5 mg tablet 5 mg PO DAILY Qty: 30 2RF alprazolam 0.5 MG tablet 0.5 mg PO BID metoprolol succinate 100 MG tablet extended release 24 hr 100 mg PO DAILY sertraline 100 MG tablet 150 mg PO DAILY hydrochlorothiazide 25 mg tablet 25 mg PO DAILY Qty: 30 2RF Referrals Follow up/Referrals: Justin Junior [Primary Care Provider] - See instructions Lila Calvillo APRN [Nurse Practitioner] - See instructions Activity Restrictions/Add. Instructions Additional Instructions/Restrictions: Soak foot 3 times daily in warm water and epson salt Apply topical medication around nail as directed Take oral antibiotics as directe Follow up with your Family Doctor or Podiatry for ingrown nail removal Clinical Impressions Clinical Impression: Ingrowing nail with infection Instructions Patient Instructions: Sore Throat, DI for Infected Ingrown Toenail, DI for Ingrown Toenail Discharge ED Provider: María Thomas [facility] General Stated complaint: SALDANA,sore throat Mode of Arrival: Ambulatory Source of Information: Patient Limitations: No Limitations Time Seen by Provider: 08/26/23 17:54 Description of Symptoms (Recalled from Triage Doc. by RN): PATIENT C/O HEADACHE, FEELING TIRED, AND INGROWN LEFT TOENAIL THAT IS POSSIBLY INFECTED X 2 DAYS HEENT Symptoms (Recalled from RN notes): Yes Resp Symptoms (Recalled from RN notes): No Skin Symptoms (Recalled from RN notes): No MS Symptoms (Recalled from RN notes): No Functional Status (Recalled from RN notes): WNL History of Present Illness Provider Complaint: Patient states that her son has been sick with similar thinks she may have a virus States that she has been feeling achy, headache, pressure in ears and also has an ingrown nail on her left great toe States that she has been soaking it but not helped much thinks it may be infected Related Data Home Medications Medication Instructions Recorded Confirmed metoprolol succinate 100 mg 100 mg PO DAILY Hypertension 03/26/18 08/03/23 tablet,extended release 24 hr sertraline 100 mg tablet 150 mg PO DAILY Depression 03/26/18 08/03/23 alprazolam 0.5 mg tablet 0.5 mg PO BID Anxiety 09/14/19 08/03/23 diclofenac sodium 50 mg 50 mg PO BID 06/16/23 08/03/23 tablet,delayed release levothyroxine 75 mcg tablet 75 mcg PO DAILY 06/16/23 08/03/23 Previous Rx's Medication Instructions Recorded hydrochlorothiazide 25 mg tablet 25 mg PO DAILY #30 tabs 06/12/23 bumetanide 2 mg tablet 2 mg PO BID PRN edema #60 tabs 06/16/23 dapagliflozin propanediol 5 mg 5 mg PO DAILY #30 tabs 06/16/23 tablet (Farxiga) amoxicillin 875 mg-potassium 1 tab PO Q12H #20 tabs 08/26/23 clavulanate 125 mg tablet mupirocin 2 % topical ointment 1 applic topical TID 10 days #22 08/26/23 grams Allergies Allergy/AdvReac Type Severity Reaction Status Date / Time No Known Allergies Allergy Verified 08/03/23 10:13 Worker's Comp Is this a Worker's Comp case?: No [facility] Disclaimer: The information contained in this section may have been updated after the patient was seen, as this information can be updated by other users. Medical History Elevated brain natriuretic peptide (BNP) level Anemia Surgical History History of hernia repair Family History Other Family history of acute congestive heart failure Family history of diabetes mellitus type II Family history of hyperlipidemia Family history of hypertension Social History Smoking Status: Never smoker alcohol intake: never current occupational status: unemployed Travel in the last 8 weeks: None household members: other housing: house current occupational exposures/hazards: No ROS Obtained: Yes All systems reviewed & no additional complaints except as documented and Yes Systems reviewed as appropriate & no additional complaints except as documented Constitutional Constitutional: Reports system reviewed and no additional complaints, except as documented, Reports as per HPI, Reports body ache, Denies fever(s) and Reports headache(s) ENT Ears, Nose, Mouth, and Throat: Reports system reviewed and no additional complaints, except as documented, Reports as per HPI, Reports otalgia, Reports headache(s), Reports nasal congestion and Reports nasal discharge Cardiovascular Cardiovascular: Reports system reviewed and no additional complaints, except as documented and Reports as per HPI Respiratory Respiratory: Reports system reviewed and no additional complaints, except as documented and Reports as per HPI Integumentary/Breasts Skin/Breast: Reports system reviewed and no additional complaints, except as documented, Reports as per HPI and Reports other (left great toe, ingrown nail) Neurologic Neurologic: Reports headache(s) Physical Exam General General appearance: alert and in no apparent distress ENT ENT exam: Present mucous membranes moist Expanded ENT Exam TM/Canal exam: Bilateral TM: bulging (clear fluid noted) Nose exam: Absent sinus tenderness Throat exam: Present normal inspection Respiratory Respiratory exam: Present normal lung sounds bilaterally; Absent respiratory distress or wheezes Cardiovascular Cardiovascular exam: Present regular rate, normal rhythm and normal heart sounds Expanded Lower Extremity Exam Left: Top foot image: 1. redness and mild swelling appears like ingrown toenail no drainage Neurological Exam Neurological exam: Present alert, oriented X3 and normal gait Medical Decision Making Gary Inquiry Pt receiving controlled substance: No Gary was queried for this patient: No Vital Signs: 08/26/23 17:35 Temperature 98.4 F Temperature Source Oral Pulse Rate [Left Brachial] 63 Respiratory Rate 18 Blood Pressure [Left Arm] 177/92 H Blood Pressure Mean [Left Arm] 120 Blood Pressure Source [Left Arm] Automatic Cuff Blood Pressure Position [Left Arm] Sitting 02 Sat by Pulse Oximetry 97 Oxygen Delivery Method Room Air
[2023-08-26 18:06] VITALS: BP 177/92; PULSE 63; RESP 18; TEMP 36.9; O2SAT 97
== END 2023-08-26 18:18 | disposition home or self-care (01) ==
PROVIDERS: Emergency Provider Nurse Practitioner; PCP Pediatrics
DX: L60.0 Ingrowing nail (principal); R51.9 Headache, unspecified; R07.0 Pain in throat; H92.03 Otalgia, bilateral
CPT/HCPCS: 99212; 99214; G0463

== ENCOUNTER 2023-09-01 09:02 | Outpatient (CLI) | payer MEDICARE, OTHER, SELFPAY ==
--- NOTE | 2023-09-01 09:25 | US_ITS ---
FINAL REPORT TECHNIQUE: Real-time grayscale and color ultrasound of the thyroid was performed. CLINICAL HISTORY: THYROID NODULE COMPARISON: 09/11/2022 FINDINGS: The thyroid gland measures 49 x 16 x 17 mm on the right and 40 x 12 x 11 mm on the left. The isthmus measures 2 mm. The parenchyma is unremarkable . Nodules: The dominant lesion in the lower right lobe has increased in size to 3.0 x 1.3 cm. It is heterogeneous, isoechoic to slightly hypoechoic. There is also a small hypoechoic focus in the isthmus which is stable. IMPRESSION: Dominant lesion right lobe is increased in size. Given increase in size, recommended needle sampling. Reviewed, Interpreted and Dictated by Hoang Castañeda MD Transcribed by Kelly Woodward Authenticated and [facility]
== END 2023-09-01 23:59 | disposition home or self-care (01) ==
LOC: RAD 09:02
PROVIDERS: PCP Nurse Practitioner; Visit Provider Nurse Practitioner
DX: E04.1 Nontoxic single thyroid nodule (principal)
CPT/HCPCS: 76536

== ENCOUNTER 2023-09-13 09:56 | Outpatient (CLI) | payer MEDICARE, OTHER, SELFPAY ==
--- NOTE | 2023-09-13 10:28 | XR_ITS ---
FINAL REPORT CLINICAL HISTORY: HTN COMPARISON: 06/12/2023 FINDINGS: Two views of the chest were obtained. The heart size and pulmonary vascularity are within normal limits. The mediastinum is normal. No acute pulmonary abnormality is identified. There is no pneumothorax. The bony thorax is intact. IMPRESSION: No active cardiopulmonary disease. Reviewed, Interpreted and Dictated by Narciso Vasques III, MD Transcribed by Kelly Woodward Authenticated and [facility]
[2023-09-13 10:30] LABS: Basophils % 0.4 % (0.1-2.0); Eosinophils # 0.2 K/mm3 (0.0-0.4); Hematocrit 36.2 % (37.0-47.0); Hemoglobin 11.4 g/dL (12.2-16.2); Lymphocytes # 1.8 K/mm3 (0.7-4.5); Lymphocytes % 17.1 % (10-50); Mean Corpuscular HGB Conc 31.6 g/dL (31.8-35.4); Mean Corpuscular Hemoglobin 23.2 pg (27.0-31.2); Mean Corpuscular Volume 73.6 fl (81-99); Mean Platelet Volume 9.1 fl (7.4-10.4); Monocytes # 0.4 K/mm3 (0.1-1.0); Monocytes % 3.9 % (1.7-9.3); Neutrophils # 7.9 K/mm3 (1.8-7.8); Neutrophils % 76.6 % (37.0-80.0); Platelet Count 261 K/mm3 (142-424); Red Blood Count 4.93 M/mm3 (4.20-5.40); Red Cell Distribution Width 16.6 % (11.5-17.5); White Blood Count 10.2 K/mm3 (4.8-10.8)
--- NOTE | 2023-09-13 10:41 | CT_ITS ---
FINAL REPORT TECHNIQUE: Thin section axial CT images were obtained through the neck after intravenous contrast administration. Coronal and sagittal reformats were also obtained. This study was performed with techniques to keep radiation doses as low as reasonably achievable (ALARA). Individualized dose reduction techniques using automated exposure control or adjustment of mA and/or kV according to the patient''s size were employed. CLINICAL HISTORY: HYPERPARATHYROIDISM COMPARISON: None FINDINGS: The nasopharynx, oropharynx, hypopharynx and larynx are unremarkable. There are multiple small bilateral cervical nodes, without definite adenopathy. There is a 13 mm nodule present in the anterior right thyroid gland, nonspecific. The visualized sinuses are clear. There is no acute osseous abnormality. IMPRESSION: 13 mm nodule present in the anterior right thyroid gland, nonspecific. Recommend dedicated thyroid ultrasound for further evaluation. Reviewed, Interpreted and Dictated by Narciso Vasques III, MD Transcribed by Radha Woody Authenticated and [facility]
[2023-09-13 10:45] LABS: Chloride 104 mmol/L (98-107); Potassium 3.9 mmoL/L (3.5-5.1); Sodium 138 mmol/L (136-145)
[2023-09-13 10:48] LABS: Alanine Aminotransferase 18 U/L (12-78); Albumin/Globulin Ratio 1.2 (1.1-1.8); Alkaline Phosphatase 90 U/L (38-126); Anion Gap 9.9 mEq/L (5-15); Aspartate Amino Transferase 28 U/L (14-36); Bilirubin,Total 0.3 mg/dl (0.2-1.3); Blood Urea Nitrogen 19 mg/dl (7-17); Carbon Dioxide 28 mmol/L (22.0-30.0); Estimated Glomerular Filt Rate 89 ml/min (>60); GFR (African American) 108 ML/MIN (>60); Globulin 3.3 g/dL (1.3-3.2); Total Protein,Serum 7.3 g/dl (6.3-8.2)
[2023-09-13 10:49] LABS: Glucose 101 mg/dl (74-100)
[2023-09-13 11:03] LABS: Chol/HDL Ratio 3.7 (1-3.5); Cholesterol 156 mg/dl (140-200); HDL Cholesterol 42 mg/dl (40-60); Triglycerides 144 mg/dl (30-150); VLDL Cholesterol 29 mg/dL (0-40)
[2023-09-13] MEDS: SODIUM CHLORIDE 0.9% 10ML SYR (RAD ONLY) 10 ML IV (11:04)
[2023-09-13] MEDS: IOPAMIDOL-370 (76%);100ML BOTTLE 75 ML IV (11:04)
[2023-09-13 11:14] LABS: Direct LDL Cholesterol 85.94 mg/dL (100-129)
[2023-09-13 11:17] LABS: Intact Parathyroid Hormone 117.4 pg/mL (7.5-53.5)
[2023-09-13 11:19] LABS: Free T4 (Free Thyroxine) 1.29 ng/dl (0.78-2.19)
[2023-09-13 11:20] LABS: 25-OH Vitamin D, Total 43.1 ng/mL (30-100)
[2023-09-13 11:35] LABS: Thyroid Stimulating Hormone 0.82 uIU/mL (0.465-4.68)
[2023-09-13 12:41] LABS: Iron 46 ug/dL (37-170)
[2023-09-13 12:57] LABS: Total Iron Binding Capacity 314 ug/dL (265-497)
[2023-09-13 13:29] LABS: Hemoglobin A1C 5.4 % (4.0-6.0)
[2023-09-16 16:20] LABS: Vitamin A 35.8 ug/dL (20.1-62.0); Vitamin B1 155.1 nmol/L (66.5-200.0); Vitamin E Alpha Tocopherol 7.3 mg/L (7.0-25.1); Vitamin E Gamma Tocopherol 2.6 mg/L (0.5-5.5)
[2023-09-22 09:56] LABS: Methylmalonic Acid 249 nmol/L (0-378)
== END 2023-09-13 23:59 | disposition home or self-care (01) ==
LOC: RAD 09:57
PROVIDERS: Physician Assistant; PCP Nurse Practitioner; Visit Provider Nurse Practitioner
DX: Z01.818 Encounter for other preprocedural examination (principal); Z79.899 Other long term (current) drug therapy; E21.0 Primary hyperparathyroidism; E66.9 Obesity, unspecified; Z68.43 Body mass index [BMI] 50.0-59.9, adult
CPT/HCPCS: 36415; 70491; 71046; 80053; 80061; 82306; 82525; 82746; 83036; 83540; 83550; 83921; 83970; 84425; 84439; 84443; 84446; 84590; 85025; Q9967

== ENCOUNTER 2023-10-21 14:03 | Outpatient (POV) | payer MEDICARE, OTHER, SELFPAY ==
[2023-10-21 14:07] VITALS: BP 156/80; PULSE 71; RESP 18; O2SAT 97; BMI 50.1
--- NOTE | 2023-10-21 15:07 | XR_ITS ---
FINAL REPORT CLINICAL HISTORY: NECK PAIN AND LOWER BACK PAIN COMPARISON: None FINDINGS: CERVICAL SPINE 5 views were obtained. There is no acute fracture or malalignment. There is mild degenerative change in the lower cervical spine with osteophytes. No significant neuroforaminal narrowing is seen. IMPRESSION: Mild degenerative change without acute process. LUMBOSACRAL SPINE 5 views were obtained. There is no acute fracture or malalignment. There is mild degenerative change with osteophytes. IMPRESSION: Mild degenerative change without acute process. Reviewed, Interpreted and Dictated by Narciso Vasques III, MD Transcribed by Kelly Woodward Authenticated and . [facility]
--- NOTE | 2023-10-21 15:53 | EXP.PAIN.OV ---
HPI Data of Consult Patient: new to practice Consult date: 10/21/23 Requesting Physician: Mohini Saenz APRN Primary Care Provider: Mónica Adler APRN Consult Narrative Reason for consult: Low back pain, left leg pain History of present illness: Ms. Liriano is a 48 year old female who presents today as a new patient. She is a referral from Lottie Adler's office. Today she rates her pain a 9 out of 10. Patient states her pain is all throughout her low back with radiating symptoms to her left leg. Patient states this has been going on for years and progressively worsened over time. Patient does states she was a previous patient of ours years ago back in 2020. Patient states she has tried [id number] Tylenol and ibuprofen along with heat and ice and topicals with minimal relief. Patient does state that the pain interferes with her ability to perform activities of daily living such as cooking and cleaning. She does describe it as a aching, throbbing sensation with numbness and tingling that will occasionally have sharp shooting pains. She states overall it is worse with laying down, standing walking or sitting. She states basically it is a constant pain. Patient does feel like her left leg does have increased weakness and will occasionally give out on her. Patient does state that she does also have neck pain however that it does not radiate into her upper extremities. Patient denies any prior surgery or injection history. Patient does states she has tried physical therapy and stated there was no improvement whatsoever and that the chiropractor did initially help however over time progressively worsened her pain. Patient has been tried on diclofenac and has had an MRI back in 2019 however denies any additional imaging it has been recent. Her Gary has been reviewed and is appropriate. CC: Mohini Saenz APRN [facility] Disclaimer: The information contained in this section may have been updated after the patient was seen, as this information can be updated by other users. Medical History (Updated 10/21/23 @ 15:57 by Mohini Saenz APRN) CHF (congestive heart failure) Asthma HLD (hyperlipidemia) HTN (hypertension) Anxiety Hyperparathyroidism Elevated brain natriuretic peptide (BNP) level Anemia Surgical History History of hernia repair Family History Other Family history of acute congestive heart failure Family history of diabetes mellitus type II Family history of hyperlipidemia Family history of hypertension Social History (Updated 10/21/23 @ 14:45 by Candace Lara RN) Smoking Status: Never smoker alcohol intake: never current occupational status: unemployed Travel in the last 8 weeks: None household members: other housing: house current occupational exposures/hazards: No Review of Systems Review of Systems Review of systems:: pertinent systems reviewed and negative unless documented below Review of systems (narrative): Review of Systems: General: No recent weight changes, no fever, no sleep disturbances Respiratory: No cough, no shortness of air, no recurring pulmonary infections Cardiovascular/peripheral vascular: No chest pain, no palpitations, no edema, no shortness of breath Gastrointestinal: No new onset incontinence, normal bowel movements reported Genitourinary: No new onset incontinence Musculoskeletal: Neck pain, low back pain, left leg pain Psychiatric: [Normal mood/affect] Neurological: [Denies weakness in extremities], [denies balance issues] Meds Home Medications and Allergies Home Medications Medication Instructions Recorded Confirmed Type metoprolol succinate 100 mg 100 mg PO DAILY Hypertension 03/26/18 10/21/23 History tablet,extended release 24 hr sertraline 100 mg tablet 150 mg PO DAILY Depression 03/26/18 10/21/23 History alprazolam 0.5 mg tablet 0.5 mg PO BID Anxiety 09/14/19 10/21/23 History hydrochlorothiazide 25 mg tablet 25 mg PO DAILY #30 tabs 06/12/23 10/21/23 Rx diclofenac sodium 50 mg 50 mg PO BID 06/16/23 10/21/23 History tablet,delayed release levothyroxine 75 mcg tablet 75 mcg PO DAILY 06/16/23 10/21/23 History mupirocin 2 % topical ointment 1 applic topical TID 10 days #22 08/26/23 10/21/23 Rx grams bumetanide 2 mg tablet 2 mg PO BID PRN edema #60 tabs 09/09/23 10/21/23 Rx dapagliflozin propanediol 5 mg 5 mg PO DAILY Diabetes 10/21/23 10/21/23 History tablet (Farxiga) New Prescriptions to Start Prescriptions: Allergies Allergy/AdvReac Type Severity Reaction Status Date / Time No Known Allergies Allergy Verified 08/30/23 10:00 Objective Vital signs: Pulse Resp BP Pulse Ox O2 Del Method 71 18 156/80 H 97 Room Air 10/21/23 14:07 10/21/23 14:10/21/23 14:10/21/23 14:10/21/23 14:07 Narrative: Physical Exam: General: Alert and oriented x3, no acute distress, pleasant and cooperative Lungs: Respirations even and unlabored, symmetrical chest expansion Eyes: PERRL Musculoskeletal: Flexion and extension of lumbar [spine] somewhat guarded secondary to pain, [antalgic gait noted] positive left leg raise with decreased sensation to light touch and decreased reflexes Neurological: Speech clear, no gross sensory deficit Assessment and Plan *Assessment and plan (1) Low back pain: Status: Chronic Qualifiers: Chronicity: chronic Back pain laterality: bilateral Sciatica presence: unspecified whether sciatica present Qualified Code(s): M54.50 - Low back pain, unspecified; G89.29 - Other chronic pain Category: Medical Code(s): M54.50 - Low back pain, unspecified (2) Lumbar radiculopathy: Status: Acute Category: Medical Code(s): M54.16 - Radiculopathy, lumbar region (3) Neck pain: Status: Acute Category: Medical Code(s): M54.2 - Cervicalgia Plan Patient is experiencing significant pain throughout her neck and low back. I have discussed with patient due to not having any recent imaging we will order x-ray imaging of her cervical and lumbar spine with the plan to progress forward with MRI without contrast of her cervical and lumbar spine. Patient does state that her low back is worse than her neck and if we do have to choose between the 2 advanced imaging we will start with a lumbar. Patient will be sent in a 14-day supply of meloxicam 15 mg daily and baclofen 5 mg 3 times daily. Patient was counseled to discontinue all other NSAIDs including her diclofenac while she is trying the meloxicam and to contact our office if these medications help. Patient will return to clinic following her imaging for reevaluation of symptoms and plan of care in 1 month. Patient has been instructed to contact the clinic with any concerns before the next appointment. Dr. Marshall has reviewed this note and agrees with this plan of care. This note was dictated using voice recognition software and make contain errors or omissions.
== END 2023-10-21 23:59 | disposition home or self-care (01) ==
PROVIDERS: PCP Nurse Practitioner; Visit Provider Nurse Practitioner Family
DX: M54.16 Radiculopathy, lumbar region; G89.29 Other chronic pain; M51.36 Other intervertebral disc degeneration, lumbar region
CPT/HCPCS: 72084; 99202; G0463

== ENCOUNTER 2023-11-08 13:45 | Outpatient (CLI) | payer MEDICARE, OTHER, SELFPAY ==
--- NOTE | 2023-11-08 13:48 | MR_ITS ---
FINAL REPORT TECHNIQUE: Multiplanar and multisequence imaging of the cervical spine was obtained. CLINICAL HISTORY: NECK PAIN COMPARISON: None FINDINGS: Alignment is normal. Vertebral body height is preserved. Signal intensity within the substance of the spinal cord is normal. Nonspecific T1 and T2 hyperintense lesion in the right T1 transverse process, etiology unclear. Bone marrow signal intensity is within normal limits. No acute paraspinal abnormality. C2/3: There is no focal disc herniation, central stenosis or neural foraminal narrowing. C3/4: There is no focal disc herniation, central stenosis or neural foraminal narrowing. C4/5: There is no focal disc herniation, central stenosis or neural foraminal narrowing. C5/6: Right paracentral protrusion with mild mass effect on the anterior thecal sac. Mild central canal stenosis. [id number]-left mild neural foraminal narrowing. C6/7: Annular disc bulge. No central canal stenosis. Mild bilateral neural foraminal narrowing.. C7/T1: There is no focal disc herniation, central stenosis or neural foraminal narrowing. IMPRESSION: Right paracentral protrusion. Mild degenerative disc disease. Nonspecific abnormal right T1 transverse process. Consider bone scan. Reviewed, Interpreted and Dictated by Casi Craig MD Transcribed by Kelly Woodward Authenticated and . [facility]
--- NOTE | 2023-11-08 13:48 | MR_ITS ---
FINAL REPORT TECHNIQUE: Multiplanar and multisequence imaging of the lumbar spine was obtained without contrast. CLINICAL HISTORY: LOW BACK PAIN, LEFT SIDED LEG PAIN COMPARISON: 02/02/2020 FINDINGS: There is normal alignment of the lumbar vertebral bodies. Vertebral body height is preserved. The spinal cord ends at the level of L2. There is normal signal intensity within the substance of the distal spinal cord. Small hemangioma in L3. No acute bone marrow edema or pathologic marrow replacement. No acute paraspinal abnormality is identified. L1-2: There is no focal disc herniation, central canal stenosis or neuroforaminal narrowing. L2-3: There is no focal disc herniation, central canal stenosis or neuroforaminal narrowing. L3-4: There is no focal disc herniation, central canal stenosis or neuroforaminal narrowing. L4-5: Mild annular disc bulge. No central canal stenosis. Mild right neural foraminal narrowing. Findings progressed from prior. L5-S1: Annular disc bulge with superimposed central protrusion. Mild central canal stenosis. Mild bilateral neural foraminal narrowing. Findings progressed from prior. IMPRESSION: Degenerative disc disease at L4-5 and L5-S1, progressed from prior with small central protrusion at L5-S1. Reviewed, Interpreted and Dictated by Casi Craig MD Transcribed by Kelly Woodward Authenticated and [facility]
== END 2023-11-08 23:59 | disposition home or self-care (01) ==
LOC: RAD 13:46
PROVIDERS: PCP Pediatrics; Visit Provider Nurse Practitioner Family
DX: M54.2 Cervicalgia (principal); M54.50 Low back pain, unspecified
CPT/HCPCS: 72141; 72148

== ENCOUNTER 2023-12-08 11:51 | Outpatient (POV) | payer MEDICARE, OTHER, SELFPAY ==
--- NOTE | 2023-12-08 12:20 | A.OFFVIS_ITS ---
[facility] Disclaimer: The information contained in this section may have been updated after the patient was seen, as this information can be updated by other users. Medical History (Updated 12/08/23 @ 12:21 by Mohini Saenz APRN) CHF (congestive heart failure) Asthma HLD (hyperlipidemia) HTN (hypertension) Anxiety Hyperparathyroidism Elevated brain natriuretic peptide (BNP) level Anemia Surgical History History of hernia repair Family History Other Family history of acute congestive heart failure Family history of diabetes mellitus type II Family history of hyperlipidemia Family history of hypertension Social History (Updated 10/21/23 @ 14:45 by Candace Lara RN) Smoking Status: Never smoker alcohol intake: never current occupational status: unemployed Travel in the last 8 weeks: None household members: other housing: house current occupational exposures/hazards: No PM Subjective & Objective Subjective Subjective:: Patient is a pleasant 48-year-old female who presents today for follow-up of cervical and lumbar MRI. Today she rates her pain an 8 out of 10. She denies any new trauma or injury. She does state that she still has chronic pain throughout her neck and low back however does feel like the low back and leg symptoms are worse. She does describe this as an aching, throbbing sensation that is worse with increased activity and does interfere with her ability to perform activities of daily living such as cooking and cleaning. Patient does state the numbness and tingling does go into both legs however it is still primarily the left leg that is worse. Patient has tried and failed conservative therapy including physical therapy, chiropractor therapy and continued at home stretching exercise for longer than 6 weeks. She does state that the meloxicam and baclofen helped maybe a little bit but nothing significant. Her Gary has been reviewed and is appropriate. Review of Systems: General: No recent weight changes, no fever, no sleep disturbances Respiratory: No cough, no shortness of air, no recurring pulmonary infections Cardiovascular/peripheral vascular: No chest pain, no palpitations, no edema, no shortness of breath Gastrointestinal: No new onset incontinence, normal bowel movements reported Genitourinary: No new onset incontinence Musculoskeletal: Low back pain, bilateral leg pain Psychiatric: [Normal mood/affect] Neurological: [Denies weakness in extremities], [denies balance issues] Pain at rest (0-10 scale): 8 Objective Objective:: Physical Exam: General: Alert and oriented x3, no acute distress, pleasant and cooperative Lungs: Respirations even and unlabored, symmetrical chest expansion Eyes: PERRL Musculoskeletal: Flexion and extension of lumbar [spine] somewhat guarded secondary to pain, [antalgic gait noted] Neurological: Speech clear, no gross sensory deficit Has patient had previous pain injection?: No Conservative treatment options previously tried: Home exercise plan Length of treatment: Longer than 6 weeks Meds Home Medications and Allergies Home Medications ?Medication ?Instructions ?Recorded ?Confirmed ?Type metoprolol succinate 100 mg 100 mg PO DAILY Hypertension 03/26/18 10/21/23 History tablet,extended release 24 hr sertraline 100 mg tablet 150 mg PO DAILY Depression 03/26/18 10/21/23 History alprazolam 0.5 mg tablet 0.5 mg PO BID Anxiety 09/14/19 10/21/23 History hydrochlorothiazide 25 mg tablet 25 mg PO DAILY #30 tabs 06/12/23 10/21/23 Rx diclofenac sodium 50 mg 50 mg PO BID 06/16/23 10/21/23 History tablet,delayed release levothyroxine 75 mcg tablet 75 mcg PO DAILY 06/16/23 10/21/23 History mupirocin 2 % topical ointment 1 applic topical TID 10 days #22 08/26/23 10/21/23 Rx grams baclofen 5 mg tablet 5 mg PO TID #42 tabs 10/21/23 Rx dapagliflozin propanediol 5 mg 5 mg PO DAILY Diabetes 10/21/23 10/21/23 History tablet (Farxiga) meloxicam 15 mg tablet 15 mg PO DAILY #14 tabs 10/21/23 Rx bumetanide 2 mg tablet 2 mg PO BID PRN edema #60 tabs 12/06/23 Rx New Prescriptions to Start Prescriptions: Allergies Allergy/AdvReac Type Severity Reaction Status Date / Time No Known Allergies Allergy Verified 08/30/23 10:00 Assessment and Plan *Assessment and plan (1) Degenerative disc disease, lumbar: Status: Acute Category: Medical Code(s): M51.36 - Other intervertebral disc degeneration, lumbar region (2) Lumbar radiculopathy: Status: Acute Category: Medical Code(s): M54.16 - Radiculopathy, lumbar region Plan Patient is experiencing worsening pain throughout her low back and bilateral lower extremities with numbness and tingling. I did review over the cervical and lumbar MRI findings and did discuss with the patient that she may benefit from a lumbar epidural steroid injection at the L5-S1 level. Risk and benefits were discussed with patient and she would like to proceed forward with this plan of care. Patient has tried and failed conservative therapy including continued at home stretching exercise for longer than 6 weeks. Patient will be scheduled for a LESI L5-S1 under fluoroscopy. Patient has been instructed to contact the clinic with any concerns before the next appointment. Dr. Marshall has reviewed this note and agrees with this plan of care. This note was dictated using voice recognition software and make contain errors or omissions. All injections are used with Lidocaine or Bupivacaine and Depo Medrol.
[2023-12-08 13:03] VITALS: BMI 50.1
== END 2023-12-08 23:59 | disposition home or self-care (01) ==
LOC: SC.PAIN 11:53
PROVIDERS: PCP Nurse Practitioner; Visit Provider Nurse Practitioner Family
DX: M51.16 Intervertebral disc disorders with radiculopathy, lumbar region (principal); Z73.89 Other problems related to life management difficulty; Z79.899 Other long term (current) drug therapy
CPT/HCPCS: 99212; G0463

== ENCOUNTER 2024-01-06 12:52 | Emergency (ER) | payer MEDICARE, OTHER, SELFPAY ==
[2024-01-06 13:06] VITALS: BP 149/83; PULSE 79; RESP 20; TEMP 36.7; O2SAT 96; BMI 46.2
[2024-01-06 13:17] LABS: UTC Strep Screen (Rapid) Negative (Negative)
--- NOTE | 2024-01-06 13:24 | EXP.UTC ---
Discharge Plan Disposition Patient Disposition: Home, Self-Care Condition: Good Prescriptions Prescriptions: New benzonatate 100 mg capsule 100 mg PO TIDP PRN (Reason: Cough) Qty: 30 0RF amoxicillin-pot clavulanate 875-125 mg Tablet 1 tab PO Q12H Qty: 20 0RF methylprednisolone 4 mg Tablets,Dose Pack 4 mg PO DIRECTED 6 Days Qty: 21 0RF Rx Instructions: Take 1 pack as directed for 6 days No Action levothyroxine 75 mcg tablet 75 mcg PO DAILY Patient Comments: TAKE 1 TABLET BY MOUTH DAILY diclofenac sodium 50 mg tablet,delayed release (DR/EC) 50 mg PO BID Patient Comments: TAKE 1 TABLET BY MOUTH TWICE DAILY WITH FOOD NEEDED FOR PAIN bumetanide 2 mg tablet 2 mg PO BID PRN (Reason: edema) Qty: 60 2RF alprazolam 0.5 MG tablet 0.5 mg PO BID metoprolol succinate 100 MG tablet extended release 24 hr 100 mg PO DAILY sertraline 100 MG tablet 150 mg PO DAILY hydrochlorothiazide 25 mg tablet 25 mg PO DAILY Qty: 30 2RF mupirocin 2 % ointment 1 applic topical TID 10 Days Qty: 22 0RF dapagliflozin propanediol [Farxiga] 5 mg tablet 5 mg PO DAILY Patient Comments: TAKE 1 TABLET BY MOUTH DAILY meloxicam 15 mg tablet 15 mg PO DAILY Qty: 14 0RF baclofen 5 mg tablet 5 mg PO TID Qty: 42 0RF prednisone 20 mg tablet 20 mg PO BID Qty: 10 0RF Referrals Follow up/Referrals: Justin Junior [Primary Care Provider] - See instructions Activity Restrictions/Add. Instructions Additional Instructions/Restrictions: Drink plenty of fluids. Take tylenol or ibuprofen for pain or fever. Take the medications as directed. Follow up with your regular doctor. GO TO THE ER FOR ANY WORSENING SYMPTOMS Clinical Impressions Clinical Impression: Sinusitis, Bronchitis Instructions Patient Instructions: Sinusitis, DI for Sinusitis Print Language Print Language: [place] Discharge ED Provider: Mariusz Nice [facility] [place] General Stated complaint: ear pain sore throat Mode of Arrival: Ambulatory Source of Information: Patient Time Seen by Provider: 01/06/24 13:24 Description of Symptoms (Recalled from Triage Doc. by RN): HEADACHE, SORE THROAT, POST NASAL DRAINAGE, EAR PAIN, FATIGUE HEENT Symptoms (Recalled from RN notes): Yes Resp Symptoms (Recalled from RN notes): Yes Skin Symptoms (Recalled from RN notes): No MS Symptoms (Recalled from RN notes): No Functional Status (Recalled from RN notes): WNL Related Data Home Medications ?Medication ?Instructions ?Recorded ?Confirmed metoprolol succinate 100 mg 100 mg PO DAILY Hypertension 03/26/18 12/08/23 tablet,extended release 24 hr sertraline 100 mg tablet 150 mg PO DAILY Depression 03/26/18 12/08/23 alprazolam 0.5 mg tablet 0.5 mg PO BID Anxiety 09/14/19 12/08/23 diclofenac sodium 50 mg 50 mg PO BID 06/16/23 12/08/23 tablet,delayed release levothyroxine 75 mcg tablet 75 mcg PO DAILY 06/16/23 12/08/23 dapagliflozin propanediol 5 mg 5 mg PO DAILY Diabetes 10/21/23 12/08/23 tablet (Farxiga) Previous Rx's ?Medication ?Instructions ?Recorded hydrochlorothiazide 25 mg tablet 25 mg PO DAILY #30 tabs 06/12/23 mupirocin 2 % topical ointment 1 applic topical TID 10 days #22 08/26/23 grams baclofen 5 mg tablet 5 mg PO TID #42 tabs 10/21/23 meloxicam 15 mg tablet 15 mg PO DAILY #14 tabs 10/21/23 bumetanide 2 mg tablet 2 mg PO BID PRN edema #60 tabs 12/06/23 prednisone 20 mg tablet 20 mg PO BID #10 tabs 12/27/23 amoxicillin 875 mg-potassium 1 tab PO Q12H #20 tabs 01/06/24 clavulanate 125 mg tablet benzonatate 100 mg capsule 100 mg PO TIDP PRN Cough #30 caps 01/06/24 methylprednisolone 4 mg tablets in 4 mg PO DIRECTED 6 days #21 tabs 01/06/24 a dose pack Allergies Allergy/AdvReac Type Severity Reaction Status Date / Time No Known Allergies Allergy Verified 08/30/23 10:00 Worker's Comp Is this a Worker's Comp case?: No [facility] Disclaimer: The information contained in this section may have been updated after the patient was seen, as this information can be updated by other users. Medical History (Updated 01/06/24 @ 13:48 by Mariusz Nice APRN) CHF (congestive heart failure) Asthma HLD (hyperlipidemia) HTN (hypertension) Anxiety Hyperparathyroidism Elevated brain natriuretic peptide (BNP) level Anemia Surgical History History of hernia repair Family History Other Family history of acute congestive heart failure Family history of diabetes mellitus type II Family history of hyperlipidemia Family history of hypertension Social History (Updated 10/21/23 @ 14:45 by Candace Lara RN) Smoking Status: Never smoker alcohol intake: never current occupational status: other Travel in the last 8 weeks: None household members: other housing: house current occupational exposures/hazards: No ROS Obtained: Yes All systems reviewed & no additional complaints except as documented Constitutional Constitutional: Reports chills and Reports fever(s) Eyes Eyes: Denies eye discharge ENT Ears, Nose, Mouth, and Throat: Reports as per HPI Cardiovascular Cardiovascular: Denies chest pain Respiratory Respiratory: Denies chest congestion and Reports cough Gastrointestinal Gastrointestingal: Reports nausea; Denies abdominal pain, constipation, cramping, diarrhea or vomiting Musculoskeletal Musculoskeletal: Denies arthralgias Integumentary/Breasts Skin/Breast: Denies rash Neurologic Neurologic: Denies paresthesias Physical Exam General General appearance: alert and in no apparent distress Eye Eye exam: Present normal appearance, PERRL and EOMI ENT ENT exam: Present mucous membranes moist and normal external ear exam Expanded ENT Exam External ear exam: Present normal external inspection TM/Canal exam: Bilateral TM: erythema and bulging Nose exam: Absent sinus tenderness Nasal speculum exam: Bilateral: normal Mouth exam: Present normal external inspection; Absent drooling Teeth exam: Present normal inspection Throat exam: Present tonsillar erythema and tonsillomegaly Neck Neck exam: Present normal inspection, full ROM and trachea midline; Absent tenderness, lymphadenopathy or thyromegaly Chest Chest inspection: Present normal inspection and symmetric chest wall rise; Absent tenderness or rash Respiratory Respiratory exam: Present normal lung sounds bilaterally; Absent respiratory distress, wheezes, stridor or accessory muscle use Cardiovascular Cardiovascular exam: Present regular rate, normal rhythm and normal heart sounds Abdominal Exam Abdominal exam: Present soft; Absent distention, tenderness, guarding, rebound or rigidity Extremities Exam Extremities exam: Present normal inspection, full ROM and normal capillary refill; Absent tenderness or calf tenderness Back Exam Back exam: Present normal inspection and full ROM; Absent tenderness Neurological Exam Neurological exam: Present alert and oriented X3 Psychiatric Psychiatric exam: Present normal affect and normal mood Skin Skin exam: Present warm, dry, intact and normal color Lymphatic Lymphatic Findings: no adenopathy Medical Decision Making Medical Records Medical records reviewed: No I reviewed the patient's medical records. Screening: Per USPSTF and CDC recommendations, given the prevalence of disease in our region, it is our hospital?s policy to screen for HIV and viral Hepatitis for all patients aged 18 and over and those with ongoing risk factors. Gary Inquiry Pt receiving controlled substance: No Vital Signs: 01/06/24 13:06 Temperature 98.0 F Temperature Source Oral Pulse Rate [Left Brachial] 79 Respiratory Rate 20 Blood Pressure [Left Arm] 149/83 H Blood Pressure Mean [Left Arm] 105 02 Sat by Pulse Oximetry 96 Lab Data Lab results reviewed: Yes I reviewed the patient's lab results. Lab Results 01/06/24 13:05: Strep Scn Rapid Clinic Negative Orders (Tests/Meds): ORDERS Category Date Time Status Strep Screen Confirmation Stat Micro 01/06/24 13:05 Received
[2024-01-06 13:49] VITALS: BP 149/83; PULSE 79; RESP 20; TEMP 36.7
== END 2024-01-06 13:51 | disposition home or self-care (01) ==
PROVIDERS: Emergency Provider Nurse Practitioner Family; PCP Pediatrics
DX: J20.9 Acute bronchitis, unspecified (principal); J01.90 Acute sinusitis, unspecified; R51.9 Headache, unspecified; H92.03 Otalgia, bilateral; R07.0 Pain in throat
CPT/HCPCS: 87880; 99212; 99214; G0463

== ENCOUNTER 2024-02-08 09:12 | Day surgery (SDC) | payer MEDICARE, OTHER, SELFPAY ==
[2024-02-08 09:31] VITALS: BP 156/85; PULSE 77; RESP 16; TEMP 36.4; O2SAT 96; BMI 50.1
[2024-02-08 10:02] VITALS: BP 152/97; PULSE 85; RESP 18; O2SAT 98
[2024-02-08] MEDS: methylPREDNISolone ACETATE 80MG/ML VIAL 80 MG (10:02)
[2024-02-08 10:04] VITALS: BP 152/97; PULSE 85; RESP 18; O2SAT 95
[2024-02-08 10:06] VITALS: BP 121/74; PULSE 87; RESP 16; O2SAT 98
--- NOTE | 2024-02-08 10:06 | EXP.PAIN.PRO ---
Procedure Date: 02/08/24 Time: 08:55 Anesthesiologist:: Jero Bullock CRNA Complications:: None Pre-procedure Diagnosis:: Degenerative disc lumbar spine multilevels. Lumbar radiculopathy. Post-procedure Diagnosis:: Same. Indications for Procedure:: Patient is a pleasant 48-year-old female who comes our clinic today for lumbar epidural steroid injection. Patient describes low lumbar back pain as constant, dull, aching. Patient also reports bilateral hip and leg radicular symptoms at times. She rates her pain 7/10. Procedure Details:: Procedure: Lumbar epidural steroid injection under fluoroscopy Informed consent was obtained and the risks and benefits of the procedure were explained to the patient. The patient was taken to the procedure room and noninvasive monitors placed, including noninvasive blood pressure cuff and pulse oximeter. The back was viewed using C-arm Fluoroscopy and prepped using Chloraprep as a cleansing solution and the L5-S1 interspace was palpated. Skin and subcutaneous tissues were anesthetized using lidocaine 1.5% and a 25-gauge needle. After this, an 18-gauge Touhy epidural needle was placed into the L5-S1 interspace and advanced using fluoroscopic guidance and loss of resistance to air until the epidural space was encountered. After confirmation of needle placement in the epidural space, with dye, a solution containing normal saline, 3 mL and Depo-Medrol 80 mg were incrementally injected into the lumbar epidural space. The patient tolerated the procedure well with no complications. The patient was observed in the Pain Clinic and then discharged home neurologically intact. Plan and Disposition:: Patient was discharged without incident.
== END 2024-02-08 10:06 | disposition home or self-care (01) ==
PROVIDERS: PCP Pediatrics; Visit Provider Nurse Anesthetist, Certified Registered
DX: M51.16 Intervertebral disc disorders with radiculopathy, lumbar region (principal)
CPT/HCPCS: 62323; J1010

== ENCOUNTER 2024-02-21 11:36 | Outpatient (POV) | payer MEDICARE, OTHER, SELFPAY ==
--- NOTE | 2024-02-21 12:21 | EXP.PAIN.SOA ---
[facility] Disclaimer: The information contained in this section may have been updated after the patient was seen, as this information can be updated by other users. Medical History (Updated 02/21/24 @ 12:24 by Mohini Saenz APRN) CHF (congestive heart failure) Asthma HLD (hyperlipidemia) HTN (hypertension) Anxiety Hyperparathyroidism Elevated brain natriuretic peptide (BNP) level Anemia Surgical History History of hernia repair Family History Other Family history of acute congestive heart failure Family history of diabetes mellitus type II Family history of hyperlipidemia Family history of hypertension Social History Smoking Status: Never smoker alcohol intake: never current occupational status: other Travel in the last 8 weeks: None household members: other housing: house current occupational exposures/hazards: No PM Subjective & Objective Subjective Subjective:: Patient is a pleasant 48-year-old female who presents today for follow-up of her lumbar epidural steroid injection L5-S1 on 02/08/2024. Today she rates her pain a 5 out of 10. She does state that she had at least 50% improvement following this injection and feels like it is still helping somewhat. Patient however states that she is having a lot more tailbone pain. Patient states this is been going on for over a year but does seem like it is progressively worsened. Patient does describe it as a constant aching, throbbing sensation that does hurt with increased sitting or prolonged standing. Patient does still complain of numbness that goes down the left extremity more than the right. Patient does state that she would like to see if we can do something for this pain due to it interfering with her ability to perform activities of daily living such as cooking and cleaning. Patient was previously tried on meloxicam and baclofen however at that time she did not feel like it provided significant relief. She does state that she feels like the meloxicam may have helped some and would like to give this another try. Patient has tried and failed conservative therapy including physical therapy, chiropractor therapy and continued at home exercising and stretching for longer than 12 weeks. Her Gary has been reviewed and is appropriate. Review of Systems: General: No recent weight changes, no fever, no sleep disturbances Respiratory: No cough, no shortness of air, no recurring pulmonary infections Cardiovascular/peripheral vascular: No chest pain, no palpitations, no edema, no shortness of breath Gastrointestinal: No new onset incontinence, normal bowel movements reported Genitourinary: No new onset incontinence Musculoskeletal: Tailbone pain, leg numbness Psychiatric: [Normal mood/affect] Neurological: [Denies weakness in extremities], [denies balance issues] Pain at rest (0-10 scale): 5 Objective Objective:: Physical Exam: General: Alert and oriented x3, no acute distress, pleasant and cooperative Lungs: Respirations even and unlabored, symmetrical chest expansion Eyes: PERRL Musculoskeletal: Flexion and extension of sacrum [spine] somewhat guarded secondary to pain, [antalgic gait noted] point tenderness along the lower sacral spine Neurological: Speech clear, no gross sensory deficit Has patient had previous pain injection?: Yes Percent improvement in pain since last injection: 50% Conservative treatment options previously tried: Home exercise plan Length of treatment: Longer than 12 weeks Meds Home Medications and Allergies Home Medications ?Medication ?Instructions ?Recorded ?Confirmed ?Type metoprolol succinate 100 mg 100 mg PO DAILY Hypertension 03/26/18 12/08/23 History tablet,extended release 24 hr sertraline 100 mg tablet 150 mg PO DAILY Depression 03/26/18 12/08/23 History alprazolam 0.5 mg tablet 0.5 mg PO BID Anxiety 09/14/19 12/08/23 History hydrochlorothiazide 25 mg tablet 25 mg PO DAILY #30 tabs 06/12/23 12/08/23 Rx diclofenac sodium 50 mg 50 mg PO BID 06/16/23 12/08/23 History tablet,delayed release levothyroxine 75 mcg tablet 75 mcg PO DAILY 06/16/23 12/08/23 History mupirocin 2 % topical ointment 1 applic topical TID 10 days #22 08/26/23 12/08/23 Rx grams baclofen 5 mg tablet 5 mg PO TID #42 tabs 10/21/23 12/08/23 Rx dapagliflozin propanediol 5 mg 5 mg PO DAILY Diabetes 10/21/23 12/08/23 History tablet (Farxiga) meloxicam 15 mg tablet 15 mg PO DAILY #14 tabs 10/21/23 12/08/23 Rx bumetanide 2 mg tablet 2 mg PO BID PRN edema #60 tabs 12/06/23 12/08/23 Rx prednisone 20 mg tablet 20 mg PO BID #10 tabs 12/27/23 Rx benzonatate 100 mg capsule 100 mg PO TIDP PRN Cough #30 caps 01/06/24 Rx methylprednisolone 4 mg tablets in 4 mg PO DIRECTED 6 days #21 tabs 01/06/24 Rx a dose pack doxycycline hyclate 100 mg capsule 100 mg PO BID infection 14 days 02/14/24 Rx #28 caps mupirocin 2 % topical ointment 1 applic topical BID infection 14 02/14/24 Rx days #15 grams New Prescriptions to Start Prescriptions: Allergies Allergy/AdvReac Type Severity Reaction Status Date / Time No Known Allergies Allergy Verified 08/30/23 10:00 Assessment and Plan *Assessment and plan (1) Coccygeal pain, chronic: Status: Acute Category: Medical Code(s): M53.3 - Sacrococcygeal disorders, not elsewhere classified; G89.29 - Other chronic pain (2) Lumbar radiculopathy: Status: Acute Category: Medical Code(s): M54.16 - Radiculopathy, lumbar region Plan Patient is experiencing worsening pain in and around her tailbone with point tenderness around her lower sacrum spine. I did discuss with the patient in future she may benefit from a caudal epidural. Risk and benefits were discussed with patient and she would like to proceed forward with this plan of care. Patient has tried and failed conservative therapy including physical therapy, chiropractor therapy and continued at home exercise and stretching that was physician guided for longer than 12 weeks. Patient will be submitted for a caudal epidural under fluoroscopy. I will also send in a 30-day supply of the meloxicam 15 mg. Patient was counseled to discontinue all other NSAIDs and to take it with food to minimize GI upset. Patient has been instructed to contact the clinic with any concerns before the next appointment. Dr. Marshall has reviewed this note and agrees with this plan of care. This note was dictated using voice recognition software and make contain errors or omissions. All injections are used with Lidocaine or Bupivacaine and Depo Medrol.
[2024-02-21 12:51] VITALS: BP 147/81; PULSE 87; RESP 18; O2SAT 95; BMI 45.6
== END 2024-02-21 23:59 | disposition home or self-care (01) ==
PROVIDERS: PCP Pediatrics; Visit Provider Nurse Practitioner Family
DX: M53.3 Sacrococcygeal disorders, not elsewhere classified (principal); G89.29 Other chronic pain; M54.16 Radiculopathy, lumbar region; Z73.89 Other problems related to life management difficulty; Z79.899 Other long term (current) drug therapy
CPT/HCPCS: 99212; G0463

== ENCOUNTER 2024-03-21 09:52 | Day surgery (SDC) | payer MEDICARE, OTHER, SELFPAY ==
[2024-03-21 10:11] VITALS: BP 140/78; PULSE 82; RESP 16; TEMP 36.4; O2SAT 96; BMI 45.1
[2024-03-21] MEDS: IOPAMIDOL-200 (41%);10ML VIAL 10 ML IV (10:24)
[2024-03-21] MEDS: methylPREDNISolone ACETATE 80MG/ML VIAL 80 MG (10:25)
[2024-03-21] MEDS: SODIUM CHLORIDE 0.9% 20ML VIAL 20 ML IV (10:25)
[2024-03-21] MEDS: LIDOCAINE 1% 5ML PF VIAL 5 ML (10:25)
[2024-03-21 10:26] VITALS: BP 128/87; PULSE 92; RESP 18; O2SAT 96
[2024-03-21 10:27] VITALS: BP 128/87; PULSE 92; RESP 18; O2SAT 96
--- NOTE | 2024-03-21 10:30 | EXP.PAIN.PRO ---
Procedure Date: 03/21/24 Time: 10:15 Anesthesiologist:: Jero Bullock CRNA Complications:: None Pre-procedure Diagnosis:: Degenerative disc lumbar spine multilevels. Lumbar radiculopathy. Left leg greater than right. Coccydynia. Post-procedure Diagnosis:: Same. Indications for Procedure:: Patient is a pleasant 48-year-old female who comes our clinic today for caudal epidural steroid injection. Patient reports 50% improvement terms of her overall low back pain with her previous L4-5 lumbar epidural steroid injection. However, her main complaint is tailbone pain as well as right buttock and leg radicular symptoms. She rates her pain 7/10. Procedure Details:: Informed consent was obtained and the risks and benefits of the procedure were explained to the patient. The patient was taken to the procedure room and noninvasive monitors placed, including noninvasive blood pressure cuff and pulse oximeter. The back was viewed using C-arm Fluoroscopy and prepped using Chloraprep as a cleansing solution and the caudal epidural space was visualized using fluoroscopy in a lateral position. Skin and subcutaneous tissues were anesthetized using lidocaine 1.5% and a 25-gauge needle. After this, an 22-gauge spinal needle was placed into the caudal epidural space and advanced using fluoroscopic guidance. After confirmation of needle placement in the caudal space, with dye, a solution containing normal saline, 3 mL and Depo-Medrol 80 mg and 1 mL of 1% lidocaine were incrementally injected into the caudal epidural space. The patient tolerated the procedure well with no complications. The patient was observed in the Pain Clinic and then discharged home neurologically intact. Plan and Disposition:: Patient was discharged without incident.
[2024-03-21 10:35] VITALS: BP 145/82; PULSE 83; RESP 16; TEMP 36.4; O2SAT 91
== END 2024-03-21 10:35 | disposition home or self-care (01) ==
PROVIDERS: PCP Pediatrics; Visit Provider Nurse Anesthetist, Certified Registered
DX: M51.16 Intervertebral disc disorders with radiculopathy, lumbar region (principal); M53.3 Sacrococcygeal disorders, not elsewhere classified
CPT/HCPCS: 62323; J1010; Q9966

== ENCOUNTER 2024-04-13 15:15 | Outpatient (POV) | payer MEDICARE, OTHER, SELFPAY ==
--- NOTE | 2024-04-13 16:17 | A.OFFVIS_ITS ---
[facility] Disclaimer: The information contained in this section may have been updated after the patient was seen, as this information can be updated by other users. Medical History (Updated 04/13/24 @ 16:20 by Mohini Saenz APRN) CHF (congestive heart failure) Asthma HLD (hyperlipidemia) HTN (hypertension) Anxiety Hyperparathyroidism Elevated brain natriuretic peptide (BNP) level Anemia Surgical History History of hernia repair Family History Other Family history of acute congestive heart failure Family history of diabetes mellitus type II Family history of hyperlipidemia Family history of hypertension Social History Smoking Status: Never smoker alcohol intake: never current occupational status: other Travel in the last 8 weeks: None household members: other housing: house current occupational exposures/hazards: No PM Subjective & Objective Subjective Subjective:: Patient is a pleasant 48-year-old female who presents today for follow-up of her caudal epidural in 03/21/2024. Today she denies rate her pain at 9 out of 10. She denies any new trauma or injury. She does state that she has had at least 50% improvement with the caudal epidural and that it is still helping however some days she will still continue to have worsening pain. She states that the left leg symptoms are still progressively worsening. She states that there is just very random times when she feels like her legs going to give out causing her to fall. She states she can only be standing for just a short period of time before she has to stop and sit down due to the pain. She states it is a constant aching, throbbing sensation with numbness and tingling. Patient does state it is interfering with her ability perform activities of daily living such as cooking and cleaning. Patient did previously have a lumbar epidural steroid injection of L5-S1 on 1028 that did provide 50% improvement. Patient has continued oral medications, heat and ice, topicals, at home stretching exercise for longer than 12 weeks that was physician guided from her chiropractor and physical therapist. Her Gary has been reviewed and is appropriate. Review of Systems: General: No recent weight changes, no fever, no sleep disturbances Respiratory: No cough, no shortness of air, no recurring pulmonary infections Cardiovascular/peripheral vascular: No chest pain, no palpitations, no edema, no shortness of breath Gastrointestinal: No new onset incontinence, normal bowel movements reported Genitourinary: No new onset incontinence Musculoskeletal: Low back pain, left leg pain Psychiatric: [Normal mood/affect] Neurological: [Denies weakness in extremities], [denies balance issues] Pain at rest (0-10 scale): 9 Objective Objective:: Physical Exam: General: Alert and oriented x3, no acute distress, pleasant and cooperative Lungs: Respirations even and unlabored, symmetrical chest expansion Eyes: PERRL Musculoskeletal: Flexion and extension of lumbar [spine] somewhat guarded secondary to pain, [antalgic gait noted] positive left leg raise with decreased sensation to light touch and decreased reflexes Neurological: Speech clear, no gross sensory deficit FINDINGS: There is normal alignment of the lumbar vertebral bodies. Vertebral body height is preserved. The spinal cord ends at the level of L2. There is normal signal intensity within the substance of the distal spinal cord. Small hemangioma in L3. No acute bone marrow edema or pathologic marrow replacement. No acute paraspinal abnormality is identified. L1-2: There is no focal disc herniation, central canal stenosis or neuroforaminal narrowing. L2-3: There is no focal disc herniation, central canal stenosis or neuroforaminal narrowing. L3-4: There is no focal disc herniation, central canal stenosis or neuroforaminal narrowing. L4-5: Mild annular disc bulge. No central canal stenosis. Mild right neural foraminal narrowing. Findings progressed from prior. L5-S1: Annular disc bulge with superimposed central protrusion. Mild central canal stenosis. Mild bilateral neural foraminal narrowing. Findings progressed from prior. IMPRESSION: Degenerative disc disease at L4-5 and L5-S1, progressed from prior with small central protrusion at L5-S1. Reviewed, Interpreted and Dictated by Casi Craig MD Transcribed by Kelly Woodward Authenticated and [facility] Has patient had previous pain injection?: Yes Percent improvement in pain since last injection: 50% Conservative treatment options previously tried: Home exercise plan Length of treatment: Longer than 12 weeks Meds Home Medications and Allergies Home Medications ?Medication ?Instructions ?Recorded ?Confirmed ?Type metoprolol succinate 100 mg 100 mg PO DAILY Hypertension 03/26/18 03/21/24 History tablet,extended release 24 hr sertraline 100 mg tablet 150 mg PO DAILY Depression 03/26/18 03/21/24 History alprazolam 0.5 mg tablet 0.5 mg PO BID Anxiety 09/14/19 03/21/24 History hydrochlorothiazide 25 mg tablet 25 mg PO DAILY #30 tabs 06/12/23 03/21/24 Rx diclofenac sodium 50 mg 50 mg PO BID 06/16/23 03/21/24 History tablet,delayed release levothyroxine 75 mcg tablet 75 mcg PO DAILY 06/16/23 03/21/24 History mupirocin 2 % topical ointment 1 applic topical TID 10 days #22 08/26/23 03/21/24 Rx grams baclofen 5 mg tablet 5 mg PO TID #42 tabs 10/21/23 03/21/24 Rx dapagliflozin propanediol 5 mg 5 mg PO DAILY Diabetes 10/21/23 03/21/24 History tablet (Farxiga) bumetanide 2 mg tablet 2 mg PO BID PRN edema #60 tabs 12/06/23 03/21/24 Rx prednisone 20 mg tablet 20 mg PO BID #10 tabs 12/27/23 03/21/24 Rx benzonatate 100 mg capsule 100 mg PO TIDP PRN Cough #30 caps 01/06/24 03/21/24 Rx methylprednisolone 4 mg tablets in 4 mg PO DIRECTED 6 days #21 tabs 01/06/24 03/21/24 Rx a dose pack doxycycline hyclate 100 mg capsule 100 mg PO BID infection 14 days 02/14/24 03/21/24 Rx #28 caps mupirocin 2 % topical ointment 1 applic topical BID infection 14 02/14/24 03/21/24 Rx days #15 grams lidocaine 5 % topical patch 1 patch topical DAILY #30 ea 04/13/24 Rx meloxicam 15 mg tablet 15 mg PO DAILY #30 tabs 04/13/24 Rx New Prescriptions to Start Prescriptions: lidocaine Mohini Saenz meloxicam Mohini Saenz Allergies Allergy/AdvReac Type Severity Reaction Status Date / Time No Known Allergies Allergy Verified 08/30/23 10:00 Assessment and Plan *Assessment and plan (1) Left leg pain: Status: Acute Category: Medical Code(s): M79.605 - Pain in left leg (2) Low back pain: Status: Acute Category: Medical Code(s): M54.50 - Low back pain, unspecified (3) Lumbar radiculopathy: Status: Acute Category: Medical Code(s): M54.16 - Radiculopathy, lumbar region Plan Patient is experiencing significant pain that radiates from her low back down her entire left extremity. Patient did have limited range of motion of her lumbar spine and a positive left leg raise with decreased sensation light touch and decreased reflexes. I did discuss with the patient that it may be beneficial to try a left transforaminal epidural. Risk and benefits were discussed with the patient and she would like to proceed forward with this plan of care. Patient at her last visit was called in meloxicam 15 mg however she states she never got this medication. We will send this in again and also add lidocaine 5% patches. Patient agrees with this plan of care. Patient has tried and failed conservative therapy including oral medications, heat and ice, topicals, physical therapy, chiropractor therapy and continued at home exer cising and stretching for longer than 12 weeks that was physician guided. Patient will be scheduled for a left transforaminal epidural steroid injection L4-L5 and L5-S1 under fluoroscopy. I did also discuss at length with the patient regarding that she may be a candidate for a spinal cord stimulator trial. We will follow-up with this at future visits. Patient has been instructed to contact the clinic with any concerns before the next appointment. Dr. Marshall has reviewed this note and agrees with this plan of care. This note was dictated using voice recognition software and make contain errors or omissions. All injections are used with Lidocaine, Bupivacaine and Depo Medrol. Occasionally urine drug screen is needed to verify patient's compliance with our office pain contract. This is ordered based off specific treatments related to chronic pain with the potential to abuse certain medications.
[2024-04-13 16:22] VITALS: BP 143/85; PULSE 77; RESP 18; O2SAT 97; BMI 45.6
== END 2024-04-13 23:59 | disposition home or self-care (01) ==
PROVIDERS: PCP Pediatrics; Visit Provider Nurse Practitioner Family
DX: M79.605 Pain in left leg (principal); M54.50 Low back pain, unspecified; M54.16 Radiculopathy, lumbar region; Z73.89 Other problems related to life management difficulty; Z79.899 Other long term (current) drug therapy
CPT/HCPCS: 99212; G0463

== ENCOUNTER 2024-05-05 07:38 | Outpatient (CLI) | payer MEDICARE, OTHER, SELFPAY | END 2024-05-05 23:59 | disposition home or self-care (01) | LOC: LAB.DROPOF 05-06 07:38 | PROVIDERS: PCP Student in an Organized Health Care Education/Training Program; Visit Provider Student in an Organized Health Care Education/Training Program | DX: R35.0 Frequency of micturition (principal); R10.12 Left upper quadrant pain | CPT/HCPCS: 87086 ==

== ENCOUNTER 2024-07-06 13:17 | Outpatient (POV) | payer MEDICARE, OTHER, SELFPAY ==
--- NOTE | 2024-07-06 13:43 | EXP.PAIN.SOA ---
[facility] Disclaimer: The information contained in this section may have been updated after the patient was seen, as this information can be updated by other users. Medical History CHF (congestive heart failure) Asthma HLD (hyperlipidemia) HTN (hypertension) Anxiety Hyperparathyroidism Elevated brain natriuretic peptide (BNP) level Anemia Surgical History History of hernia repair Family History Other Family history of acute congestive heart failure Family history of diabetes mellitus type II Family history of hyperlipidemia Family history of hypertension Social History Smoking Status: Never smoker alcohol intake: never current occupational status: unemployed Travel in the last 8 weeks: None household members: other housing: house current occupational exposures/hazards: No PM Subjective & Objective Subjective Subjective:: Patient is a pleasant 49-year-old female who presents today for worsening pain. Today she rates her pain a 8 out of 10. She denies any new falls or injuries. She does state that she is still having severe pain down her entire left leg. Patient does also state that the low back symptoms were there however they were not nearly as bad as her leg symptoms. Patient states she has difficulty walking and feels like she cannot walk hardly any before she has to stop and take a break due to the worsening pain symptoms. She is stating it does interfere with her ability perform activities of daily living such as cooking and cleaning. Patient has tried conservative treatment continually with no additional improvement. Patient at our last visit was scheduled for a left transforaminal epidural injection however she states that she ended up having to cancel this appointment due to all the snow that we had in April. Patient does state that she would like to get back in for this injection as it is very much worse from when we saw her last. Patient denies any symptoms into her right leg. Patient was also prescribed meloxicam at her last visit along with lidocaine 5% patches. She states that she still had trouble with her pharmacy and that the lidocaine patches were not covered. She states she ended up getting the 4% and that it did help a little however nothing crazy significant. Patient is asking if we can try a different anti-inflammatory as well as the muscle relaxers. Her Gary has been reviewed and is appropriate. Review of Systems: General: No recent weight changes, no fever, no sleep disturbances Respiratory: No cough, no shortness of air, no recurring pulmonary infections Cardiovascular/peripheral vascular: No chest pain, no palpitations, no edema, no shortness of breath Gastrointestinal: No new onset incontinence, normal bowel movements reported Genitourinary: No new onset incontinence Musculoskeletal: Low back pain, left leg pain Psychiatric: [Normal mood/affect] Neurological: [Denies weakness in extremities], [denies balance issues] Pain at rest (0-10 scale): 8 Objective Objective:: Physical Exam: General: Alert and oriented x3, no acute distress, pleasant and cooperative Lungs: Respirations even and unlabored, symmetrical chest expansion Eyes: PERRL Musculoskeletal: Flexion and extension of lumbar [spine] somewhat guarded secondary to pain, [antalgic gait noted] positive left leg raise with decreased sensation to light touch and decreased reflexes Neurological: Speech clear, no gross sensory deficit Has patient had previous pain injection?: No Conservative treatment options previously tried: Home exercise plan Length of treatment: Longer than 12 weeks Meds Home Medications and Allergies Home Medications ?Medication ?Instructions ?Recorded ?Confirmed ?Type metoprolol succinate 100 mg 100 mg PO DAILY Hypertension 03/26/18 05/29/24 History tablet,extended release 24 hr sertraline 100 mg tablet 150 mg PO DAILY Depression 03/26/18 05/29/24 History alprazolam 0.5 mg tablet 0.5 mg PO BID Anxiety 09/14/19 05/29/24 History diclofenac sodium 50 mg 50 mg PO BID 06/16/23 05/29/24 History tablet,delayed release levothyroxine 75 mcg tablet 75 mcg PO DAILY 06/16/23 05/29/24 History baclofen 5 mg tablet 5 mg PO TID #42 tabs 10/21/23 05/29/24 Rx dapagliflozin propanediol 5 mg 5 mg PO DAILY Diabetes 10/21/23 05/29/24 History tablet (Farxiga) lidocaine 5 % topical patch 1 patch topical DAILY #30 ea 04/13/24 05/29/24 Rx amoxicillin 875 mg tablet 875 mg PO BID #20 tabs 05/29/24 05/29/24 Rx rosuvastatin 5 mg tablet 5 mg PO DAILY 05/29/24 05/29/24 History New Prescriptions to Start Prescriptions: Allergies Allergy/AdvReac Type Severity Reaction Status Date / Time No Known Allergies Allergy Verified 05/05/24 15:05 Assessment and Plan *Assessment and plan (1) Left leg pain: Status: Acute Category: Medical Code(s): M79.605 - Pain in left leg (2) Degenerative disc disease, lumbar: Status: Acute Category: Medical Code(s): M51.369 - Other intervertebral disc degeneration, lumbar region without mention of lumbar back pain or lower extremity pain (3) Low back pain: Status: Chronic Qualifiers: Chronicity: chronic Back pain laterality: bilateral Sciatica presence: unspecified whether sciatica present Qualified Code(s): M54.50 - Low back pain, unspecified; G89.29 - Other chronic pain Category: Medical Code(s): M54.50 - Low back pain, unspecified (4) Lumbar radiculopathy: Status: Acute Category: Medical Code(s): M54.16 - Radiculopathy, lumbar region Plan Patient is experiencing worsening pain in her low back with numbness and tingling into her left lower extremity. Patient did have limited range of motion of her lumbar spine with a positive leg leg raise. Patient did also have decreased reflex and decreased sensation to light touch. I did discuss with patient that I do believe they would benefit from a left transforaminal epidural. Risk and benefits were discussed with patient and the patient would like to proceed forward with this plan of care. Patient is not on any blood thinner. Patient has tried and failed conservative therapy including continued at home stretching exercise for longer than 12 weeks between injections. Patient has also had physician guided therapy of both physical therapy and chiropractor therapy with no additional improvement. Patient did previously have a lumbar epidural back in January 2024 that provided 50% relief. Patient has had this pain for longer than 6 months. Patient did have canal stenosis at the L5-S1 level on her most up-to-date imaging. Patient was counseled if she does get significant relief with this diagnostic injection she may be a potential candidate for future surgery. Patient was also counseled again regarding the spinal cord stimulator trial. We will review at her next appointment regarding additional options if she does not get relief with this injection. I will send in a 2-week dose of Celebrex 200 mg daily. She was counseled to discontinue all other NSAIDs while taking this medication and take it with food to minimize GI upset. Patient acknowledges understanding agrees with plan of care. I will also send in a refill of the baclofen 5 mg 3 times daily. We will schedule the patient for an left transforaminal epidural L4-L5 and L5-S1 under fluoroscopy. Patient has been instructed to contact the clinic with any concerns before the next appointment. Dr. Marshall has reviewed this note and agrees with this plan of care. This note was dictated using voice recognition software and make contain errors or omissions. All injections are used with Lidocaine, Bupivacaine and Depo Medrol. Occasionally urine drug screen is needed to verify patient's compliance with our office pain contract. This is ordered based off specific treatments related to chronic pain with the potential to abuse certain medications.
[2024-07-06 14:23] VITALS: BP 136/69; PULSE 79; RESP 18; O2SAT 96; BMI 44.1
== END 2024-07-06 23:59 | disposition home or self-care (01) ==
PROVIDERS: PCP Pediatrics; Visit Provider Nurse Practitioner Family
DX: M79.605 Pain in left leg (principal); M51.16 Intervertebral disc disorders with radiculopathy, lumbar region; M54.50 Low back pain, unspecified; G89.29 Other chronic pain; Z73.89 Other problems related to life management difficulty
CPT/HCPCS: 99212; G0463

== ENCOUNTER 2024-07-25 15:12 | Emergency (ER) | payer MEDICARE, SELFPAY ==
[2024-07-25 15:25] VITALS: BP 125/75; RESP 20; TEMP 36.8; O2SAT 98; BMI 44.1
[2024-07-25 15:26] VITALS: BP 125/75; PULSE 71; O2SAT 98
--- NOTE | 2024-07-25 15:32 | CT_ITS ---
PROCEDURE INFORMATION: Exam: CT Abdomen And Pelvis With Contrast Exam date and time: 07/25/2024 4:22 PM Age: 49 years old Clinical indication: Abdominal pain; Localized; Left lower quadrant (llq); Additional info: Llq pain, nausea/vomiting/diarrhea TECHNIQUE: Imaging protocol: Computed tomography of the abdomen and pelvis with contrast. Radiation optimization: All CT scans at this facility use at least one of these dose optimization techniques: automated exposure control; mA and/or kV adjustment per patient size (includes targeted exams where dose is matched to clinical indication); or iterative reconstruction. Contrast material: ISOVUE; Contrast volume: 75 ml; Contrast route: IV; COMPARISON: MR LUMBAR SPINE WO CON 11/08/2023 2:08 PM FINDINGS: Lungs: The visualized lung bases are clear. Pleural spaces: There are no pleural effusions. Heart: The visualized portions of the heart are unremarkable. There is no evidence of pericardial fluid collections. Liver: The liver is normal. Gallbladder and biliary ducts: The gallbladder is normal. Pancreas: The pancreas is normal. Spleen: There is mild nonspecific splenomegaly. The spleen measures 15.3 cm in CC dimension. An accessory splenule is present. There is a subtle subcentimeter hypodensity in the superior spleen seen series 3, image 12 which is nonspecific. Adrenal glands: The adrenal glands are normal. Kidneys and ureters: There are several bilateral renal collecting system calcifications. No right ureteric stone disease. There are a few areas of renal cortical scarring bilaterally. There is an 8 x 7 mm calcification in the junction of left renal pelvis and proximal ureter resulting in mild pelviectasis and caliectasis. There is also a delay in the left renal nephrogram and mild perinephric and peripelvic fat stranding. There is a focal 11 mm renal hypodensity in the posteroinferior left kidney that cannot be further characterized on the current examination. Statistically, this is likely a cyst. Stomach and bowel: The stomach is normal. The duodenum is unremarkable. Lack of gastrointestinal contrast limits evaluation of bowel. Unopacified loops of small bowel within range of normal. There is mild submucosal fat deposition involving the proximal colon which can be seen with normal variation but can also be seen with inflammatory bowel disease. Correlate clinically. The colon is otherwise within range of normal. Appendix: No evidence of appendicitis. Intraperitoneal space: No evidence of intraperitoneal free air. There is no evidence of free intraperitoneal or pelvic fluid. Vasculature: There are a few benign phleboliths in the pelvis. No aneurysm. Lymph nodes: Subtle hazy infiltration of the central mesenteric fat is present with a few centrally located mesenteric lymph nodes, not of pathologic significance by size criteria.These findings are nonspecific, and most likely represent sequela of viral adenitis. Correlate clinically. There are scattered shotty retroperitoneal lymph nodes, not of pathologic significance by CT size criteria. No pathologic adenopathy. Urinary bladder: The bladder is decompressed. Reproductive: The uterus is normal. The ovaries are normal. Bones/joints: There are mild degenerative changes of the symphyseal pubic joint. The thoracolumbar spine demonstrates mild to moderate degenerative changes at multiple levels, most prominent at L5-S1 where there is marked intervertebral disc space narrowing, vacuum disc phenomenon and [id number] endplate discogenic degenerative changes and marginal osteophytes. There is slight retrolisthesis of L5 on S1. There is moderate bilateral neural foraminal narrowing at this level. There is no evidence of acute fracture. Soft tissues: No significant soft tissue edema. There is mild diastasis of the rectus abdominus musculature. IMPRESSION: 1. 8 x 7 mm mildly obstructing calcification at the junction of left renal pelvis and proximal ureter resulting in mild pelviectasis and caliectasis, delayed nephrogram and mild perinephric and peripelvic fat stranding. 2. Bilateral nephrolithiasis. 3. Mild submucosal fat deposition involving the proximal colon which can be seen with normal variation but can also be seen with inflammatory bowel disease. Correlate clinically. 4. Mild splenomegaly. COMMENTS: Consistent with the [employer]'s Incidental Findings Committee white paper (J Am Kath Radiol 2018): Any incidental renal lesion less than 1 cm or classified as too small to characterize, or any incidental cystic renal lesion characterized as simple-appearing, is likely benign. No follow-up imaging is recommended for these lesions per consensus recommendations based on imaging criteria.
--- NOTE | 2024-07-25 15:35 | ED_ITS ---
Discharge Plan Disposition Patient Disposition: Home, Self-Care Condition: Good Prescriptions Prescriptions: New oxycodone 5 mg tablet 5 mg PO Q8H PRN (Reason: pain) Qty: 12 0RF tamsulosin [Flomax] 0.4 mg capsule 0.4 mg PO HS Qty: 14 0RF ketorolac 10 mg tablet 10 mg PO Q8H PRN (Reason: pain) 3 Days Qty: 12 0RF ondansetron HCl 4 mg tablet 4 mg PO Q8H PRN (Reason: nausea and vomiting) 4 Days Qty: 12 0RF No Action rosuvastatin 5 mg tablet 5 mg PO DAILY Patient Comments: TAKE 1 TABLET BY MOUTH EVERY NIGHT levothyroxine 75 mcg tablet 75 mcg PO DAILY Patient Comments: TAKE 1 TABLET BY MOUTH DAILY diclofenac sodium 50 mg tablet,delayed release (DR/EC) 50 mg PO BID Patient Comments: TAKE 1 TABLET BY MOUTH TWICE DAILY WITH FOOD NEEDED FOR PAIN cefdinir 300 mg capsule 300 mg PO BID Qty: 20 0RF ondansetron 4 mg tablet,disintegrating 4 mg PO Q8H PRN (Reason: nausea and vomiting) Qty: 10 0RF alprazolam 0.5 MG tablet 0.5 mg PO BID lidocaine 5 % adhesive patch,medicated 1 patch topical DAILY Qty: 30 0RF Rx Instructions: leave on most painful area for up to 12 hrs metoprolol succinate 100 MG tablet extended release 24 hr 100 mg PO DAILY sertraline 100 MG tablet 150 mg PO DAILY dapagliflozin propanediol [Farxiga] 5 mg tablet 5 mg PO DAILY Patient Comments: TAKE 1 TABLET BY MOUTH DAILY celecoxib [Celebrex] 200 mg capsule 200 mg PO DAILY Qty: 14 0RF baclofen 5 mg tablet 5 mg PO TID Qty: 90 0RF Referrals Follow up/Referrals: Justin Junior [Primary Care Provider] - See instructions Activity Restrictions/Add. Instructions Additional Instructions/Restrictions: You were evaluated in the emergency department today. You were diagnosed with a kidney stone. Follow-up closely with urology. We do not have an interventional urologist at our healthcare facility, but one close option is Dr. Harvey Lewis in [place] ([facility] - [address], [place] [address] - [phone]). Please make sure you drink plenty of fluids and stay orally hydrated. Toradol is an NSAID like ibuprofen and aleve, so do not take other NSAIDs while taking this medication. Try getting by with toradol and Tylenol, but you may choose to take the narcotic pain medication provided to you in the event of severe pain not controlled by these medications. Do not drive or operate heavy machinery while taking narcotic pain medication, as it can be sedating. Narcotic pain medication can be addicting and can cause constipation. Follow-up closely with your primary care provider as well. Return to the emergency department for new or worsening symptoms such as significant worsening in pain, fever greater than 100.4 ?F, intractable nausea and vomiting. Clinical Impressions Clinical Impression: Ureterolithiasis, Left flank pain Stand Alone Forms Stand Alone Forms: Work/School Release Instructions Patient Instructions: DI for Kidney Stones, DI for Acute Abdominal Pain Print Language Print Language: Indonesian Discharge ED Provider: Mohini Carbone General Adult HPI General Chief complaint: Abdominal Pain Stated complaint: Vomiting,chills,left side pain,stomach,back pain Time Seen by Provider: 07/25/24 15:23 Mode of Arrival: Ambulatory Source of Information: Patient Description of Symptoms (Recalled from ER Triage Doc. by RN): pt cc today is severe back and left abd /side History of Present Illness HPI narrative: This patient is a 49-year-old female who has history of obesity, hypertension, hyperlipidemia, anxiety, asthma, degenerative disc disease presenting to the emergency department for evaluation of concern for left lower quadrant abdominal pain radiating to her back, nausea, vomiting, and diarrhea. Symptoms started yesterday. Patient states that she has had this before and they thought maybe was a kidney stone, she got a shot in outpatient clinic and the symptoms resolved. She went to see PCP yesterday for this and got a shot, however it did not help. She denies fevers, cough, hematemesis, melena, hematochezia, dysuria, urinary frequency, urinary urgency, or hematuria. She denies prior abdominal surgeries or known abdominal issues such as diverticulitis Related Data Home Medications ?Medication ?Instructions ?Recorded ?Confirmed metoprolol succinate 100 mg 100 mg PO DAILY Hypertension 03/26/18 07/24/24 tablet,extended release 24 hr sertraline 100 mg tablet 150 mg PO DAILY Depression 03/26/18 07/24/24 alprazolam 0.5 mg tablet 0.5 mg PO BID Anxiety 09/14/19 07/24/24 diclofenac sodium 50 mg 50 mg PO BID 06/16/23 07/24/24 tablet,delayed release levothyroxine 75 mcg tablet 75 mcg PO DAILY 06/16/23 07/24/24 dapagliflozin propanediol 5 mg 5 mg PO DAILY Diabetes 10/21/23 07/24/24 tablet (Farxiga) rosuvastatin 5 mg tablet 5 mg PO DAILY 05/29/24 07/24/24 Previous Rx's ?Medication ?Instructions ?Recorded lidocaine 5 % topical patch 1 patch topical DAILY #30 ea 04/13/24 baclofen 5 mg tablet 5 mg PO TID #90 tabs 07/06/24 celecoxib 200 mg capsule (Celebrex) 200 mg PO DAILY #14 caps 07/06/24 cefdinir 300 mg capsule 300 mg PO BID #20 caps 07/24/24 ondansetron 4 mg disintegrating 4 mg PO Q8H PRN nausea and 07/24/24 tablet vomiting #10 tabs ketorolac 10 mg tablet 10 mg PO Q8H PRN pain 3 days #12 07/25/24 tabs ondansetron HCl 4 mg tablet 4 mg PO Q8H PRN nausea and 07/25/24 vomiting 4 days #12 tabs oxycodone 5 mg tablet 5 mg PO Q8H PRN pain #12 tabs 07/25/24 tamsulosin 0.4 mg capsule (Flomax) 0.4 mg PO HS #14 caps 07/25/24 Allergies Allergy/AdvReac Type Severity Reaction Status Date / Time No Known Allergies Allergy Verified 07/24/24 08:12 [facility] Disclaimer: The information contained in this section may have been updated after the patient was seen, as this information can be updated by other users. Medical History CHF (congestive heart failure) Asthma HLD (hyperlipidemia) HTN (hypertension) Anxiety Hyperparathyroidism Elevated brain natriuretic peptide (BNP) level Anemia Surgical History History of hernia repair Family History Other Family history of acute congestive heart failure Family history of diabetes mellitus type II Family history of hyperlipidemia Family history of hypertension Social History Smoking Status: Never smoker alcohol intake: never current occupational status: unemployed Travel in the last 8 weeks: None household members: other housing: house current occupational exposures/hazards: No Other Medical History Have you received the Flu Vaccine for this season: No Have you received the Pneumonia Vaccine: No ROS Obtained: Yes All systems reviewed & no additional complaints except as documented Physical Exam General General appearance: alert, in no apparent distress and obese Head Head exam: atraumatic and normocephalic Eye Eye exam: Present normal appearance, PERRL and EOMI ENT ENT exam: Present normal exam, normal oropharynx, mucous membranes moist and normal external ear exam Neck Neck exam: Present normal inspection, full ROM and trachea midline; Absent tenderness Chest Chest inspection: Present normal inspection and symmetric chest wall rise; Absent tenderness Respiratory Respiratory exam: Present normal lung sounds bilaterally; Absent respiratory distress, wheezes, stridor or accessory muscle use Cardiovascular Cardiovascular exam: Present regular rate and normal rhythm Abdominal Exam Abdominal exam: Present soft and tenderness (Left lower quadrant abdominal tenderness without rebound or guarding); Absent distention, guarding, rebound or rigidity Extremities Exam Extremities exam: Present normal inspection, full ROM and normal capillary refill; Absent tenderness or edema Back Exam Back exam: Present normal inspection and full ROM; Absent tenderness Neurological Exam Neurological exam: Present alert, oriented X3, CN II-XII intact and normal gait; Absent motor sensory deficit Psychiatric Psychiatric exam: Present normal affect and normal mood Skin Skin exam: Present warm and dry Medical Decision Making Medical Records Medical records reviewed: Yes I reviewed the patient's medical records. Screening: Per USPSTF and CDC recommendations, given the prevalence of disease in our region, it is our hospital?s policy to screen for HIV and viral Hepatitis for all patients aged 18 and over and those with ongoing risk factors. Gary Inquiry Pt receiving controlled substance: Yes Gary was queried for this patient: Yes Risks and benefits of using a controlled substance: were discussed with pt by me Vital Signs: 07/25/24 15:25 07/25/24 15:26 07/25/24 18:57 Temperature 98.2 F 98.6 F Temperature Source Oral Oral Pulse Rate 71 62 Respiratory Rate 20 16 Blood Pressure 125/75 119/60 Blood Pressure [Right Arm] 125/75 Blood Pressure Mean [Right Arm] 91 Blood Pressure Source Automatic Cuff Blood Pressure Position Sitting 02 Sat by Pulse Oximetry 98 98 Oxygen Delivery Method Room Air Room Air Lab Data Lab results reviewed: Yes I reviewed the patient's lab results. Lab Results 07/25/24 15:44: WBC 11.1 H, RBC 4.68, Hgb 10.5 L, Hct 34.3 L, MCV 73.3 L, MCH 22.4 L, MCHC 30.6 L, RDW 15.7, Plt Count 222, MPV 10.7 H, Neut % (Auto) 80.9 H, Lymph % (Auto) 11.3, Fountain % (Auto) 5.5, Eos % (Auto) 1.5, Baso % (Auto) 0.4, N eut # (Auto) 9.0 H, Lymph # (Auto) 1.3, Fountain # (Auto) 0.6, Eos # (Auto) 0.2, Baso # (Auto) 0.0, Sodium 138, Potassium 4.2, Chloride 105, Carbon Dioxide 26, Anion Gap 11.2, BUN 19 H, Creatinine 1.40 H, Estimated Creat Clear 49, Estimated GFR 40 L, Est GFR ( Amer) 48 L, Glucose 95, Calcium 8.3 L, Total Bilirubin 0.4, AST 32, ALT 19, Alkaline Phosphatase 83, Total Protein 6.9, Albumin 3.7, Globulin 3.2, Albumin/Globulin Ratio 1.2, Lipase 82 07/25/24 16:43: Urine Color Yellow, Urine Appearance Slightly cloudy, Urine pH 6.0, Ur Specific Suring 1.020, Urine Protein Negative, Urine Glucose (UA) 3+, Urine Ketones Negative, Urine Blood 2+ A, Urine Nitrate Negative, Urine Bilirubin Negative, Urine Urobilinogen 0.2, Ur Leukocyte Esterase Negative, Urine RBC 3-5, Urine WBC 3-5, Ur Squamous Epith Cells 10-20, Urine Bacteria 1+ 07/25/24 15:44 07/25/24 15:44 Orders (Tests/Meds): ED MEDICATIONS Discontinued Medications Generic Name Dose Route Start Last Admin Trade Name Freq PRN Reason Stop Dose Admin Acetaminophen 1,000 mg 07/25/24 15:33 07/25/24 15:54 Acetaminophen 1,000mg/100ml Vial IV 07/25/24 15:34 1,000 mg ONCE ONE Administration Lactated Ringer's 1,000 mls @ 999 mls/hr 07/25/24 15:33 07/25/24 15:54 Lactated Ringer's 1000 Ml Bag IV 07/25/24 16:33 999 mls/hr .Q1H1M ONE Administration Iopamidol 75 ml 07/25/24 16:22 07/25/24 16:23 Iopamidol-370 (76%);100ml Bottle IV 07/25/24 16:23 75 ml ONCE ONE Administration Ketorolac Tromethamine 15 mg 07/25/24 15:33 07/25/24 15:54 Ketorolac 30mg/Ml Vial IV 07/25/24 15:34 15 mg ONCE ONE Administration Morphine Sulfate 4 mg 07/25/24 17:00 07/25/24 17:55 Morphine 4mg/Ml Syringe IV 07/25/24 17:01 4 mg ONCE ONE Administration Ondansetron HCl 4 mg 07/25/24 15:33 07/25/24 15:54 Ondansetron 4mg/2ml Vial IV 07/25/24 15:34 4 mg ONCE ONE Administration Oxycodone HCl 5 mg 07/25/24 18:45 07/25/24 18:53 Oxycodone 5mg Immediate Release Tablet PO 07/25/24 18:46 5 mg ONCE ONE Administration Sodium Chloride 10 ml 07/25/24 16:22 07/25/24 16:23 Sodium Chloride 0.9% 10ml Syr (Rad Only) IV 07/25/24 16:23 10 ml ONCE ONE Administration Tamsulosin HCl 0.4 mg 07/25/24 18:45 07/25/24 18:53 Tamsulosin 0.4mg Capsule PO 07/25/24 18:46 0.4 mg ONCE ONE Administration ORDERS Category Date Time Status CT abdomen pelvis w con Stat Cat Scan 07/25/24 15:32 Completed Complete Blood Count Auto Diff Stat Lab 07/25/24 15:44 Completed Comprehensive Metabolic Panel Stat Lab 07/25/24 15:44 Completed Lipase Stat Lab 07/25/24 15:44 Completed UA [Urinalysis and Microscopic] Stat Lab 07/25/24 16:43 Completed Urine Culture Stat Micro 07/25/24 15:32 Received Medical Decision Narrative: In summary, this patient is a 49-year-old female presenting to the Emergency Department for evaluation of left lower quadrant abdominal pain, nausea, vomiting, and diarrhea. Differential diagnoses considered include but are not limited to gastroenteritis, colitis, diverticulitis, cystitis, pyelonephritis, ureterolithiasis, pancreatitis. Ruling out the most morbid conditions drove assessment. It should be noted patient's history includes obesity, hypertension, hyperlipidemia, anxiety, hyperparathyroidism, CHF, degenerative disc disease which may or may not be at goal therapy. This complicates all aspects of care by increasing patient's risk for morbidity. I reviewed patient's past medical records and noted prior PCP evaluation for abdominal pain in the past which was April 2024. She was discharged with instructions for supportive management. On exam, the patient is sitting upright in no acute distress. She has left lower quadrant tenderness but no rebound or guarding. She is nontoxic-appearing with normal vital signs and cardiac telemetry. Workup included CBC, CMP, lipase, urinalysis, urine culture, CT abdomen pelvis with IV contrast. She was given a bolus of IV fluids as well as IV Zofran, acetaminophen, and Toradol for symptomatic improvement. I independently interpreted CT scan prior to the radiologist read and noted obstructive ureterolithiasis with an 8mm stone in the proximal ureter. Please see their read for final interpretation. Labs were obtained that demonstrated very mild leukocytosis. Creatinine slightly elevated at 1.4. Urinalysis demonstrates blood but no concerns for infection with negative nitrates and leukocyte esterase. On reassessment, patient had some improvement after administration of interventions above but continues to have pain, so she is given IV morphine. This significantly helped.. I explained to her the findings concerning for obstructive kidney stone, but urine is not concerning for infection and she is afebrile and nontoxic. I offered transfer to higher level of care for urology, as we do not have urology here. Patient states that her pain is under control and she would like to go home to follow-up with urology outpatient. I advised her that she is unlikely to pass the stone on her own given size, but if she wants to try to go home to follow-up outpatient. I feel that is fine since she is not in acute kidney failure, has no concerns for infection based on labs or exam. Urine culture was sent and is pending at this time just to be on the safe side. Patient was discharged with instructions for urology follow-up, very strict return precautions should she develop any worsening of clinical condition, and prescriptions for oxycodone, Toradol, Flomax, and Zofran. Critical Care Critical Care Time Critical Care Time: No
[2024-07-25] MEDS: ONDANSETRON 4MG/2ML VIAL 4 MG IV (15:54)
[2024-07-25] MEDS: ACETAMINOPHEN 1,000MG/100ML VIAL 1000 MG IV (15:54)
[2024-07-25] MEDS: LACTATED RINGERS 1000ML 1,000 ML 999 ML IV (15:54)
[2024-07-25] MEDS: KETOROLAC 30MG/ML VIAL 15 MG IV (15:54)
[2024-07-25 15:55] LABS: Basophils % 0.4 % (0.1-2.0); Eosinophils # 0.2 K/mm3 (0.0-0.4); Eosinophils % 1.5 % (0.1-12.0); Hematocrit 34.3 % (37.0-47.0); Hemoglobin 10.5 g/dL (12.2-16.2); Lymphocytes # 1.3 K/mm3 (0.7-4.5); Lymphocytes % 11.3 % (10-50); Mean Corpuscular HGB Conc 30.6 g/dL (31.8-35.4); Mean Corpuscular Hemoglobin 22.4 pg (27.0-31.2); Mean Corpuscular Volume 73.3 fl (81-99); Mean Platelet Volume 10.7 fl (7.4-10.4); Monocytes # 0.6 K/mm3 (0.1-1.0); Monocytes % 5.5 % (1.7-9.3); Neutrophils % 80.9 % (37.0-80.0); Nucleated Red Blood Cells # 0 10^3/uL; Nucleated Red Blood Cells % 0 %; Platelet Count 222 K/mm3 (142-424); Red Blood Count 4.68 M/mm3 (4.20-5.40); Red Cell Distribution Width 15.7 % (11.5-17.5); Red Cell Distribution Width-SD 40.8 fL; White Blood Count 11.1 K/mm3 (4.8-10.8)
[2024-07-25 16:00] LABS: Albumin Level 3.7 g/dl (3.5-5.0); Chloride 105 mmol/L (98-107); Potassium 4.2 mmoL/L (3.5-5.1); Sodium 138 mmol/L (136-145)
[2024-07-25 16:03] LABS: Alanine Aminotransferase 19 U/L (12-78); Albumin/Globulin Ratio 1.2 (1.1-1.8); Alkaline Phosphatase 83 U/L (38-126); Anion Gap 11.2 mEq/L (5-15); Aspartate Amino Transferase 32 U/L (14-36); Bilirubin,Total 0.4 mg/dl (0.2-1.3); Blood Urea Nitrogen 19 mg/dl (7-17); Calcium 8.3 mg/dl (8.4-10.2); Carbon Dioxide 26 mmol/L (22.0-30.0); Creatinine Clearance Estimated 49 mL/min (50-200); Estimated Glomerular Filt Rate 40 ml/min (>60); GFR (African American) 48 ML/MIN (>60); Globulin 3.2 g/dL (1.3-3.2); Glucose 95 mg/dl (74-100); Lipase 82 U/L (23-300); Total Protein,Serum 6.9 g/dl (6.3-8.2)
--- NOTE | 2024-07-25 16:05 | PC.NURSE ---
1600hrs, as per the MAR administered 1000mg of Acetaminophen, 15mg of ketorolac, and 4mg of Zofran.
[2024-07-25] MEDS: SODIUM CHLORIDE 0.9% 10ML SYR (RAD ONLY) 10 ML IV (16:23)
[2024-07-25] MEDS: IOPAMIDOL-370 (76%);100ML BOTTLE 75 ML IV (16:23)
[2024-07-25 16:59] LABS: Microscopic, Urine URINE MICROSCOPIC (MICROSCOPIC)
[2024-07-25] MEDS: MORPHINE 4MG/ML SYRINGE 4 MG IV (17:55)
[2024-07-25 17:57] LABS: Bilirubin,Urine Negative (Negative); Blood, Urine 2+ (Negative); Color,Urine YELLOW (Yellow); Glucose,Urine (UA) 3+ (Negative); Ketones,Urine Negative (Negative); Leukocyte Esterase,Urine Negative (Negative); Nitrate,Urine Negative (Negative); Protein,Urine Negative (Negative); Urobilinogen,Urine 0.2 EU/dl (0.2)
[2024-07-25 17:58] LABS: Appearance,Urine Slightly Cloudy (Clear)
[2024-07-25 18:25] LABS: Bacteria,Urine 1+ /lpf
[2024-07-25] MEDS: OXYCODONE 5MG IMMEDIATE RELEASE TABLET 5 MG PO (18:53)
[2024-07-25] MEDS: TAMSULOSIN 0.4MG CAPSULE 0.4 MG PO (18:53)
[2024-07-25 18:57] VITALS: BP 119/60; PULSE 62; RESP 16; TEMP 37; O2SAT 98
--- NOTE | 2024-07-27 09:48 | PC.NURSE ---
I discussed the urine cultures results with . No change in treatment plan at this time.
== END 2024-07-25 19:15 | disposition home or self-care (01) ==
PROVIDERS: Emergency Provider Emergency Medicine; PCP Pediatrics
DX: R10.32 Left lower quadrant pain (principal); N20.1 Calculus of ureter; R11.2 Nausea with vomiting, unspecified; M54.59 Other low back pain
CPT/HCPCS: 74177; 80053; 81001; 83690; 85025; 87086; 96361; 96374; 96375; 99285; J0131; J1885; J2270; J2405; J7120; Q9967

== ENCOUNTER 2024-07-25 16:06 | Outpatient (CLI) | payer MEDICARE, SELFPAY | END 2024-07-25 23:59 | disposition home or self-care (01) | LOC: LAB.DROPOF 16:07 | PROVIDERS: PCP Student in an Organized Health Care Education/Training Program; Visit Provider Student in an Organized Health Care Education/Training Program | DX: M54.9 Dorsalgia, unspecified (principal) | CPT/HCPCS: 87086 ==

== ENCOUNTER 2024-07-26 19:06 | Emergency (ER) | payer MEDICARE, SELFPAY ==
[2024-07-26] VITALS (7 sets, daily range): BP systolic 123–170; BP diastolic 67–97; PULSE 60–74; RESP 18; TEMP 36.6; O2SAT 95–99; BMI 45.6
--- OUTSIDE RECORDS SUMMARY | 2024-07-26 19:15 | XMS_ITS | Data Portability ---
Author Organization [facility] [place] [facility] [place] [facility] Address [address] [place] [address] Care Team Providers Care Heel Gummer Name Role Phone ROSA RITTER Primary Care Provider Assessment Encounter Date Assessment Date Assessment LastModified by Organization Details LastModified Time 10/08/2023 10/08/2023 A total of 10 minutes was spent with the pt today. Recommendations: 1. Continue keeping food records 2. Decrease eating out to 2-3 times a week 3. Drink 64 oz fluid/day, decrease OJ to 4oz 4. Physical activity 3 times a week for 15 minutes or as tolerated 5. Review manual for meal and snack ideas Pt doing well overall. Addressed concerns today. Pt was reassured at today's visit. Pt verbally agreed to recommendations and goals. Denied further questions/concerns . RDN will monitor weight loss, labs, meds, and lifestyle modifications. Will f/up as scheduled or PRN. [email or web address] Not available 10/08/2023 13:58:09 Plan of Treatment Reminders Order Date Submit Date Provider Last Modified By Organization Details Last Modified Time Details Appointments OV NEW 30 2024 09:45A M KACY DON MD Not available Not available Not available Lab CBC w/ auto diff 2023 024 [email or web address] [facility], [address], [address], [place], [address], 10/01/2023 14:03:55 iron + TIBC + ferritin, serum 2023 024 [email or web address] [facility], [address], [address], [place], [address], 10/01/2023 14:03:55 copper, serum or plasma 2023 024 [email or web address] [facility], [address], [address], [place], [address], 10/01/2023 14:03:57 CMP, serum or plasma 2023 024 [email or web address] [facility], [address], [address], [place], [address], 10/01/2023 14:03:55 HbA1c (hemoglob in A1c), blood 2023 024 [facility], [address], [address], [place], [address], 10/01/2023 14:03:55 lipid panel, serum 2023 024 [email or web address] [facility], [address], [address], [place], [address], 10/01/2023 14:03:56 vitamin D, 25-hydrox y, total, serum 2023 024 [email or web address] [facility], [address], [address], [place], [address], 10/01/2023 14:03:56 vitamin A (retinol) , serum 2023 024 [email or web address] [facility], [address], [address], [place], [address], 10/01/2023 14:03:56 vitamin E, serum 2023 024 [email or web address] [facility], [address], [address], [place], [address], 10/01/2023 14:03:56 PTH (parathyr oid hormone), intact, serum or plasma 2023 024 [email or web address] [facility], [address], [address], [place], [address], 10/01/2023 14:03:56 TSH + free T4, serum 2023 024 [email or web address] [facility], [address], [address], [place], [address], 10/01/2023 14:03:56 folate, serum 2023 024 [facility], [address], [address], [place], [address], 10/01/2023 14:03:56 methylmal hang, QN, serum or plasma 2023 024 [facility], [address], [address], [place], [address], 10/01/2023 14:03:57 thiamine, QN, blood 2023 024 [email or web address] [facility], [address], [address], [place], [address], 10/01/2023 14:03:57 Referral None recorded. Procedures None recorded. Surgeries esophagog astroduod enoscopy (SURG) 2023 024 [email or web address] Taty Richards MD, [address], [address], [place], [address], 01/04/2024 13:17:44 Imaging XR, chest, 2 view 2023 024 [facility] (Centralized Scheduling), [address], [place], [address], 10/01/2023 14:03:28 electroca rdiogram, routine ECG, 12 leads min 2023 024 [email or web address] Not available 10/01/2023 13:49:45 Medication Orders None recorded. Patient Targets Encounter Date Encounter Id Patient Goals Patient Target Last Modified By Organization Details Last Modified Time 1. Start keeping food records2. Decrease eating out to 2-3 times a week3. Drink 64 oz fluid/day, decrease OJ to 4oz4. Physical activity 3 times a week for 15 minutes5. Review manual for meal and snack ideas [email or web address] Not available 09/07/2023 16:35:30 Patient InstructionsNo instructions recorded. Reason for Referral None Reported. Results Created Date Observation Date Name Description Value Unit Range Abnormal Flag Note LastModifiedBy Organization Detail LastModifiedTime 07/27/1907/25/2024 imagi ng/vincent carreon tic resul t No observ ation record ed. [facility] (Med Record) [address], [place], [address], 07/26/2024 15:29:39 Result Notes None recorded. Problems Name Problem SNOMED Code Status Onset Date Resolution Date Notes Provider Name and Address Organization Details Recorded Time Essential hypertension 47674531 Active 2023 RICCARDO Lozano [address] , [place], [address] , [place] [facility] & [place] 4 09:01:10 Dyslipidemia 187893333 Active 2023 RICCARDO Lozano [address] , [place], [address] , [place] [facility] & [place] 4 09:03:02 Iron deficiency 53348333 Active 2023 RICCARDO Lozano [address], [place], [address] , [place] [facility] & [place] 4 09:03:05 Hyperparathyr oidism 82876586 Active 2023 RICCARDO Lozano [address], [place], [address] , [place] [facility] & [place] 4 09:03:12 Obesity 299906905 Active 2023 RICCARDO Lozano [address], [place], [address] , [facility] & [place] 09:03:25 Disorder of function of stomach 341553029 Active 2023 RICCARDO Lozano [address], [place], [address] , [facility] [place] 14:08:55 Obstructive sleep apnea syndrome 12172548 Active 2023 RICCARDO Lozano [address], [place], [address] , [facility] & [place] 14:09:55 Problem Notes None recorded. Procedures Surgical History Date Name Laterality Status Provider Name and Address Organization Details Recorded Time biopsy of breast completed Giovanna Birmingham [facility] [place] 09/07/2023 11:16:50 extraction of wisdom tooth completed Giovanna Birmingham [facility] [place] 09/07/2023 11:16:57 hernia repair completed RICCARDO Bhandari [address], [place], [address], [facility] & [place] 09/07/2023 14:09:37 Imaging Results Imaging Date Name Status LastModified by Organiz ation Details LastModified Time 07/25/2024 imaging/diagn ostic result active [facility] (Med Record) [address], [place], [address], 07/26/2024 15:29:39 Procedure Notes None recorded. Medical Equipment None Reported. Allergies No known drug allergies Medications Name Sig Start Date Stop Date Status Note LastModified by Organization Details LastModified Time celecoxib 200 mg capsule TAKE 1 CAPSULE BY MOUTH DAILY active Not Available Not Available Not Available cyclobenzapr ine 10 mg tablet TAKE 1 TABLET BY MOUTH EVERY 8 HOURS NEEDED FOR MUSCLE SPASMS active Not Available Not Available No t Available doxycycline hyclate 100 mg capsule TAKE 1 CAPSULE BY MOUTH TWICE DAILY FOR 14 DAYS FOR INFECTION active Not Available Not Available No t Available bumetanide 2 mg tablet TAKE 1 TABLET BY MOUTH TWICE DAILY NEEDED FOR SWELLING active Not Available Not Available No t Available meloxicam 15 mg tablet TAKE 1 TABLET BY MOUTH DAILY active Not Available Not Available Not Available prednisone 20 mg tablet TAKE 1 TABLET BY MOUTH TWICE DAILY WITH FOOD FOR 5 DAYS active Not Available Not Available No t Available metoprolol succinate ER 100 mg tablet,exten ded release 24 hr TAKE 1 TABLET BY MOUTH EVERY DAY active Not Available Not Available No t Available sertraline 100 mg tablet TAKE 2 TABLETS BY MOUTH DAILY active Not Available Not Available Not Available levothyroxin e 75 mcg tablet TAKE 1 TABLET BY MOUTH DAILY active Not Available Not Available Not Available alprazolam 0.5 mg tablet TAKE 1 TABLET BY MOUTH TWICE DAILY NEEDED FOR ANXIETY active Not Available Not Available No t Available amoxicillin 875 mg tablet TAKE 1 TABLET BY MOUTH TWICE DAILY FOR 10 DAYS active Not Available Not Available No t Available nystatin 100,000 unit/gram topical cream APPLY TOPICALLY TO THE AFFECTED AREA TWICE DAILY active Not Available Not Available No t Available hydrochlorot hiazide 25 mg tablet TAKE 1 TABLET BY MOUTH DAILY active Not Available Not Available Not Available mupirocin 2 % topical ointment APPLY TOPICALLY TO THE AFFECTED AREA TWICE DAILY FOR 14 DAYS FOR INFECTION active Not Available Not Available No t Available diclofenac sodium 50 mg tablet,delay ed release TAKE 1 TABLET BY MOUTH TWICE DAILY WITH FOOD NEEDED FOR PAIN active Not Available Not Available No t Available methylpredni solone 4 mg tablets in a dose pack FOLLOW PACKAGE DIRECTIONS active Not Available Not Available N ot Available albuterol sulfate HFA 90 mcg/actuatio n aerosol inhaler INHALE 2 PUFFS INTO THE LUNGS EVERY 4 HOURS NEEDED FOR WHEEZING active Not Available Not Available No t Available ondansetron 4 mg disintegrati ng tablet DISSOLVE 1 TABLET ON THE TONGUE EVERY 8 HOURS NEEDED FOR NAUSEA OR VOMITING active Not Available Not Available No t Available cefdinir 300 mg capsule TAKE 1 CAPSULE BY MOUTH TWICE DAILY FOR 10 DAYS active Not Available Not Available No t Available amoxicillin 875 mg-potassium clavulanate 125 mg tablet TAKE 1 TABLET BY MOUTH EVERY 12 HOURS FOR 10 DAYS active Not Available Not Available Not Available rosuvastatin 5 mg tablet TAKE 1 TABLET BY MOUTH EVERY NIGHT active Not Available Not Available No t Available Farxiga 5 mg tablet TAKE 1 TABLET BY MOUTH DAILY active Not Available Not Available Not Available baclofen 5 mg tablet TAKE 1 TABLET BY MOUTH THREE TIMES DAILY active Not Available Not Available Not Available Archanavy 2.4 mg/0.75 mL subcutaneous pen injector ADMINISTER 2.4 MG UNDER THE SKIN 1 TIME A WEEK FOR 24 DOSES active Not Available Not Available No t Available Wegovy 1 mg/0.5 mL subcutaneous pen injector ADMINISTER 1 MG UNDER THE SKIN 1 TIME A WEEK FOR 4 DOSES active Not Available Not Available Not Available Wegovy 0.25 mg/0.5 mL subcutaneous pen injector ADMINISTER 0.25 MG UNDER THE SKIN ONCE A WEEK FOR 4 DOSES active Not Available Not Available No t Available Wegovy 0.5 mg/0.5 mL subcutaneous pen injector ADMINISTER 0.5 MG UNDER THE SKIN 1 TIME A WEEK FOR 4 DOSES active Not Available Not Available No t Available Vitals Date Recorded Body height Body mass index (BMI) Body weight Body temperature Heart rate Systolic blood pressure Diastolic blood pressure Provider Name and Address Organization Details Last Updated DateTime 172.72 cm 49.5 kg/m2 912534. 32 g 98.3 [degF] 60 /min 166 mm[Hg] 85 mm[Hg] Kasie Caballero [facility] [place] 13:48:51 Social History Question Answer Notes LastModified by Organizat ion Details LastModified Time Tobacco Smoking Status Never Smoker Kasie Caballero [facility], [facility] [place] 09/07/2023 13:46:55 What Is Your Level Of Alcohol Consumption? None [email or web address] Information not available 09/07/2023 Sex: Unknown Functional Status None recorded. Mental Status None recorded. Family History Relationship Description Onset Age of this Age Resolved Age Notes LastModified by Organization Details LastModified Time Mother Disorder of endocrine system pt. added direct ly (09/03) [email or web address] Not available 09/04/2023 12:51:59 Mother Hypertensive disorder pt. added direct ly (09/03) [email or web address] Not available 09/04/2023 12:52:18 Mother Kidney disease pt. added direct ly (09/03) [email or web address] Not available 09/04/2023 12:53:05 Mother Chronic obstructive pulmonary disease pt. added direct ly (09/03) [email or web address] Not available 09/04/2023 12:53:23 Mother Mental health problem pt. added direct ly (09/03) [email or web address] Not available 09/04/2023 12:53:35 Mother Hypercholest erolemia pt. added direct ly (09/03) [email or web address] Not available 09/04/2023 12:53:48 Mother Obesity pt. added direct ly (09/03) [email or web address] Not available 09/04/2023 12:53:55 Mother Cerebrovascu lar accident pt. added direct ly (09/03) [email or web address] Not available 09/04/2023 12:54:18 Father Myocardial infarction pt. added direct ly (09/03) [email or web address] Not available 09/04/2023 12:52:33 Father Hypercholest erolemia pt. added direct ly (09/03) [email or web address] Not available 09/04/2023 12:52:48 Father Kidney disease pt. added direct ly (09/03) [email or web address] Not available 09/04/2023 12:53:16 Father Rheumatoid arthritis pt. added direct ly (09/03) [email or web address] Not available 09/04/2023 12:54:05 Father Liver problem pt. added direct ly (09/03) [email or web address] Not available 09/04/2023 12:54:27 Medical History Condition Response Diabetes N Anxiety Disorder Y Bleeding Disorder N Hyperthyroidism Y Depression Y Asthma Y Anemia Y Sleep Apnea Y High Cholesterol Y Liver Disease N Heart Disease N Pulmonary Embolism N Headaches Y Deep Vein Thrombosis N Hypertension Y Kidney Disease N Gynecological HistoryNo gynecological history recorded. Obstetrics History GPAL:G 0 P 0 0 0 0 Past Encounters Encounter ID Performer Location Encounter Start Date Encounter Closed Date Diagnosis/Indication Diagnosis SNOMED-CT Code Diagnosis ICD10 Code Diagnosis Note [id number] RICCARDO Loz[facility] [address] [facility] [address] [place] [address] 09/07/2023 11:31:58 09/07/2023 14:21:54 Essential hypertension 26323854 I10 Dyslipidemia 205007613 E 78.5 Iron deficiency 63010737 E61.1 Hyperparathyroidism 6699 9008 E21.3 Obesity 204234633 E66.9 Weight loss surgery options discussed at length with patient today. We discussed sleeve versus BPD/duoden al switch/ LAURA-S. I feel like the best surgery option for this patient is BPD/ duodenal switch/ LAURA-S given current BMI and comorbidit ies The patient will be scheduled for the following. Initial intake lab work, cardiac clearance, and EGD. All risks complicati ons and alternativ es of the upper endoscopy were discussed with the patient and agreed upon. These include but are not limited to, over sedation, bleeding, perforatio n.Patient will be educated by the surgical weight loss team regarding if any medical managed weight loss will be required and they will follow this according to their recommenda tions.leila ent will follow-up in office after all testing has been completed Pre-surger y evaluation 963804168 Z01.818 Disorder o f function of stomach 836118725 K31.89 Obstructiv e sleep apnea syndrome 41428248 G47.[id number], [facility] [place] [facility] [address] [facility] [address] [place] [address] 09/07/2023 15:04:06 09/08/2023 10:44:50 Essential hypertension 72843907 I10 Obstructiv e sleep apnea syndrome 57528731 G47.33 Morbid obesity 310060246 E66.01 BMI 49.[id number] MON RDN, [facility] [address] [facility] [address] [place] [address] 10/08/2023 11:42:36 10/08/2023 13:00:11 Essential hypertension 80437068 I10 Obstructiv e sleep apnea syndrome 69375197 G47.33 Morbid obesity 754437459 E66.01 Unintentio nal weight gain 1304379739 88676 R63.5 Health Concerns Section Related Observation LastModified by Organization Detai ls LastModified Time None Recorded Concern Status LastModified by Organization Details LastModified Time None Recorded Advance Directives Directive None Recorded Payers Encounter Date Sequence Insurance Name Policy Number Policy Crocker Covered Member ID Crocker Member ID Guarantor Name 09/07/2023 1 [place]: SANJAY LOZANO OF [facility] (MEDICARE REPLACEMENT REGIONAL PPO) [id number] María Liriano [id number] María Liriano 09/07/2023 2 [employer] [facility] (MEDICAID HMO) María Liriano [id number] María Liriano 09/07/2023 1 [place] [id number] María Liriano [id number] María Liriano 09/07/2023 2 [employer] [facility] (MEDICAID HMO) María Liriano [id number] María Liriano 10/08/2023 1 [place] [id number] María Liriano [id number] María Liriano 10/08/2023 2 [employer] [facility] (MEDICAID HMO) María Liriano [id number] María Liriano Notes Date Note Type Note Provider Name and Address Organization Details Recorded Time 4 text/html Patient presents today for the initial evaluation with an interest in bariatric surgery. Patients first choice for bariatric surgery is the/duodenal switch. Current BMI 49.5. Patient reports no chronic issues with reflux issue.Pt has been overweight most of their life. Has been 100lbs or more over weight for 6 years. Pt reports dyspnea joint pain and mobility issues related to excess weight.The pt is pursuing weight loss surgery because excess weight directly contributes to comorbidities including hypertension obstructive sleep apnea hyperlipidemiaDiets include calorie counting high protein/low carb diet. Pt site physical hunger and boredom as prompts to eat. Struggles with portion size. DIET HX:The patient states that they have been overweight since pregnancyThe patient states that they have been 100 lbs or more overweight 6 years.The patient started dieting at the age of 18Dieting methods that have been most successful in losing weight are walkingThe most weight ever lost on a single dieting attempt was 50lbs and this was maintained until ?The patient has attempted the following unsupervised diet attempts otherThe Patient has followed the following supervised diet attempts otherThe following OTC or prescribed medications have been utilized for weight loss phentermineBehavior treatments for weight loss that have been attempted in the past were noneThe patient has utilized the following modes of exercise to help with weight loss walkingThe patient has not use self induced behaviors to help them lose weight in the past.Currently the patient admits to an eating history of skipping meals, eating or snacking in the day and evening and late at night.The patient feels that the majority of their meals are prepared at home.Common triggers for causing the patient to overeat are physical hunger, makes me happy. RICCARDO Lozano [address], [place], [address], [facility] & [place] 09/07/2023 14:48:49 text/html Intake Template RDN met w/ JUSTUS Singer 1975, who is a 48 YO to complete initial nutritional assessment for intake of bariatric surgery. Pt is interested in not sure. Height = 68in. Weight = 325.5# (BMI = 49.5 ). PMH significant for dyslipidemia, htn, emilee Past weight loss attempts: walking, gym Hx of eating disorder: No Prescription diet pills: Phentermine Herbal supplements: No Vitamins: Vitamin D3 Meal Pattern: B: Usually skipsL: Eats out, chicken sand, burger, pizzaD: [place], chicken and dumplins, spaghettiSnacks: chips Eating out: 3 times a week Beverages: Water with tea pkt - 5-6/day Alcoholic consumption: No Smoking/Tobacco: No Exercise: Back issues, limited Recent changes: None Motivation for surgery: Health, to feel better Support after surgery: Goals for surgery: would like to weigh 160# Additional Notes:Weigh-Ins Needed: 3Weigh-Ins Scheduled: will schedule here RDN recommendations:1. Start keeping food records2. Decrease eating out to 2-3 times a week3. Drink 64 oz fluid/day, decrease OJ to 4oz4. Physical activity 3 times a week for 15 minutes5. Review manual for meal and snack ideas Pt verbally agreeable to recommendations. Denied having further questions/concerns. RD concludes that pt is a candidate for sx at this time. RD will f/up and monitor PRN. MARÍA SHELL RD, LD [address], [place], [address], [facility] & [place] 09/07/2023 16:35:42 text/html RDN met w/ pt today for weight-check in pursuit of WLS. Height = 68in.Weight = 330.2#BMI = 50.21 Weight change since last visit: +4.7#Weight Hx:325.5# on 09-07-23 Current Diet: avoiding soda consumption and decreased sugar consumption. Drinking flavored water. Eating smaller portions and eating more through the day on a more consistent schedule.Current Exercise: walking - does have numbness with walking. EWELINA MON RDN, LD [address], [place], [address], [facility] [place] [facility] [place] [facility] [place] 10/08/2023 13:58:45 OBGyn Episode No OBEpisode recorded.
[2024-07-26 19:34] LABS: Microscopic, Urine URINE MICROSCOPIC (MICROSCOPIC)
--- NOTE | 2024-07-26 19:38 | HMH.EDGENADL ---
Discharge Plan Disposition Patient Disposition: Xfer Other Chief Complaint: Abdominal Pain Prescriptions Prescriptions: No Action rosuvastatin 5 mg tablet 5 mg PO DAILY Patient Comments: TAKE 1 TABLET BY MOUTH EVERY NIGHT levothyroxine 75 mcg tablet 75 mcg PO DAILY Patient Comments: TAKE 1 TABLET BY MOUTH DAILY diclofenac sodium 50 mg tablet,delayed release (DR/EC) 50 mg PO BID Patient Comments: TAKE 1 TABLET BY MOUTH TWICE DAILY WITH FOOD NEEDED FOR PAIN cefdinir 300 mg capsule 300 mg PO BID Qty: 20 0RF ondansetron 4 mg tablet,disintegrating 4 mg PO Q8H PRN (Reason: nausea and vomiting) Qty: 10 0RF alprazolam 0.5 MG tablet 0.5 mg PO BID lidocaine 5 % adhesive patch,medicated 1 patch topical DAILY Qty: 30 0RF Rx Instructions: leave on most painful area for up to 12 hrs oxycodone 5 mg tablet 5 mg PO Q8H PRN (Reason: pain) Qty: 12 0RF tamsulosin [Flomax] 0.4 mg capsule 0.4 mg PO HS Qty: 14 0RF ketorolac 10 mg tablet 10 mg PO Q8H PRN (Reason: pain) 3 Days Qty: 12 0RF ondansetron HCl 4 mg tablet 4 mg PO Q8H PRN (Reason: nausea and vomiting) 4 Days Qty: 12 0RF metoprolol succinate 100 MG tablet extended release 24 hr 100 mg PO DAILY sertraline 100 MG tablet 150 mg PO DAILY dapagliflozin propanediol [Farxiga] 5 mg tablet 5 mg PO DAILY Patient Comments: TAKE 1 TABLET BY MOUTH DAILY celecoxib [Celebrex] 200 mg capsule 200 mg PO DAILY Qty: 14 0RF baclofen 5 mg tablet 5 mg PO TID Qty: 90 0RF Referrals Follow up/Referrals: Chandrika Walker APRN [Primary Care Provider] - See instructions Clinical Impressions Clinical Impression: Left ureteral calculus, Intractable pain, Intractable nausea Instructions Patient Instructions: DI for Acute Abdominal Pain Print Language Print Language: Macanese Discharge ED Provider: Rafael Jc General Adult HPI General Chief complaint: Abdominal Pain Stated complaint: back and abdomin pain from kidney stone Time Seen by Provider: 07/26/24 19:16 Mode of Arrival: Ambulatory Source of Information: Patient and Spouse Description of Symptoms (Recalled from ER Triage Doc. by RN): pt presents with c/o pain from a known kidney stone which she was seen in this ER for x1 day ago. Pt reports no relief from the pain despite taking pain meds at home. Pt reports surgery schedulded for this coming for removal. History of Present Illness HPI narrative: Patient is a 49-year-old female presenting today with refractory symptoms with a known kidney stone. She was here last night had a CT scan that showed a proximal 8 mm ureteral stone that was obstructing. Dr. Ivey saw the patient and offered to transfer the patient to a higher level of care however the patient's symptoms were under control and she wished to proceed with outpatient management. She spoke with [facility] she believes that she is going to see Dr. Lewis but she does have a surgery scheduled on Wednesday morning. However her symptoms have significantly worsened and returned and persisted she has had significant nausea and vomiting associated with this and states that she has having refractory symptoms. At the moment she is not sure that she wants to be transferred and she is thinking about it but is returning to the emergency department with persistent symptoms. No fevers or chills burning dysuria etc. Related Data Home Medications ?Medication ?Instructions ?Recorded ?Confirmed metoprolol succinate 100 mg 100 mg PO DAILY Hypertension 03/26/18 07/24/24 tablet,extended release 24 hr sertraline 100 mg tablet 150 mg PO DAILY Depression 03/26/18 07/24/24 alprazolam 0.5 mg tablet 0.5 mg PO BID Anxiety 09/14/19 07/24/24 diclofenac sodium 50 mg 50 mg PO BID 06/16/23 07/24/24 tablet,delayed release levothyroxine 75 mcg tablet 75 mcg PO DAILY 06/16/23 07/24/24 dapagliflozin propanediol 5 mg 5 mg PO DAILY Diabetes 10/21/23 07/24/24 tablet (Farxiga) rosuvastatin 5 mg tablet 5 mg PO DAILY 05/29/24 07/24/24 Previous Rx's ?Medication ?Instructions ?Recorded lidocaine 5 % topical patch 1 patch topical DAILY #30 ea 04/13/24 baclofen 5 mg tablet 5 mg PO TID #90 tabs 07/06/24 celecoxib 200 mg capsule (Celebrex) 200 mg PO DAILY #14 caps 07/06/24 cefdinir 300 mg capsule 300 mg PO BID #20 caps 07/24/24 ondansetron 4 mg disintegrating 4 mg PO Q8H PRN nausea and 07/24/24 tablet vomiting #10 tabs ketorolac 10 mg tablet 10 mg PO Q8H PRN pain 3 days #12 07/25/24 tabs ondansetron HCl 4 mg tablet 4 mg PO Q8H PRN nausea and 07/25/24 vomiting 4 days #12 tabs oxycodone 5 mg tablet 5 mg PO Q8H PRN pain #12 tabs 07/25/24 tamsulosin 0.4 mg capsule (Flomax) 0.4 mg PO HS #14 caps 07/25/24 Allergies Allergy/AdvReac Type Severity Reaction Status Date / Time No Known Allergies Allergy Verified 07/24/24 08:12 [facility] Disclaimer: The information contained in this section may have been updated after the patient was seen, as this information can be updated by other users. Medical History CHF (congestive heart failure) Asthma HLD (hyperlipidemia) HTN (hypertension) Anxiety Hyperparathyroidism Elevated brain natriuretic peptide (BNP) level Anemia Surgical History History of hernia repair Family History Other Family history of acute congestive heart failure Family history of diabetes mellitus type II Family history of hyperlipidemia Family history of hypertension Social History Smoking Status: Never smoker alcohol intake: never current occupational status: unemployed Travel in the last 8 weeks: None household members: other housing: house current occupational exposures/hazards: No Have you lived/traveled outside US in past 30 days?: No Contact w/someone who lives/traveled outside US past 30 days?: No Exposure to someone with infectious disease in past 14 days?: No Do you have a fever (greater than 100.4 F or 38 C)?: No Have you tested positive for COVID-19: No Exposed to someone with COVID-19 in past 14 days?: No Do you have a sore throat?: No Do you have a cough?: Yes Do you have any weakness?: No Do you have any diarrhea?: No Are you experiencing any unusual bleeding?: No Do you have any muscle aches/pain?: No Do you have any abdominal pain?: No Are you experiencing loss of taste or smell?: No Other Medical History Have you received the Flu Vaccine for this season: No Have you received the Pneumonia Vaccine: No ROS Obtained: Yes All systems reviewed & no additional complaints except as documented Physical Exam General General appearance: alert and in no apparent distress Respiratory Respiratory exam: Present normal lung sounds bilaterally Cardiovascular Cardiovascular exam: Present regular rate Abdominal Exam Abdominal exam: Present soft; Absent distention or tenderness Neurological Exam Neurological exam: Present alert and oriented X3 Medical Decision Making Medical Records Screening: Per USPSTF and CDC recommendations, given the prevalence of disease in our region, it is our hospital?s policy to screen for HIV and viral Hepatitis for all patients aged 18 and over and those with ongoing risk factors. Gary Inquiry Pt receiving controlled substance: No Vital Signs: 07/26/24 19:14 07/26/24 19:15 07/26/24 19:31 Temperature 97.9 F Temperature Source Oral Pulse Rate 74 73 Pulse Rate [Radial] 73 Respiratory Rate 18 Blood Pressure 170/97 H 141/84 H Blood Pressure [Right Arm] 170/97 H Blood Pressure Mean Blood Pressure Mean [Right Arm] 121 Blood Pressure Position [Right Arm] Sitting 02 Sat by Pulse Oximetry 98 99 97 Oxygen Delivery Method Room Air 07/26/24 20:04 07/26/24 20:30 Temperature Temperature Source Pulse Rate 70 66 Pulse Rate [Radial] Respiratory Rate Blood Pressure 124/67 123/75 Blood Pressure [Right Arm] Blood Pressure Mean 82 88 Blood Pressure Mean [Right Arm] Blood Pressure Position [Right Arm] 02 Sat by Pulse Oximetry 96 95 Oxygen Delivery Method Room Air Room Air Lab Data Lab results reviewed: Yes I reviewed the patient's lab results. Lab Results 07/26/24 19:14: Urine Color Yellow, Urine Appearance Slightly cloudy, Urine pH 6.0, Ur Specific N[place] >= 1.030, Urine Protein Trace, Urine Glucose (UA) 1+, Urine Ketones Negative, Urine Blood Trace-i, Urine Nitrate Negative, Urine Bilirubin Negative, Urine Urobilinogen 0.2, Ur Leukocyte Esterase Negative, Urine RBC Occasional, Urine WBC 3-5, Ur Squamous Epith Cells 3-5, Uric Acid Crystals 1+, Amorphous Sediment Trace, Urine Bacteria 1+ 07/26/24 19:45: WBC 11.8 H, RBC 4.80, Hgb 10.6 L, Hct 35.3 L, MCV 73.5 L, MCH 22.1 L, MCHC 30.0 L, RDW 15.7, Plt Count 258, MPV 10.6 H, Neut % (Auto) 77.2, Lymph % (Auto) 14.7, [place] % (Auto) 4.9, Eos % (Auto) 2.5, Baso % (Auto) 0.4, Neut # (Auto) 9.1 H, Lymph # (Auto) 1.7, [place] # (Auto) 0.6, Eos # (Auto) 0.3, Baso # (Auto) 0.1, Sodium 138, Potassium 4.6, Chloride 103, Carbon Dioxide 26, Anion Gap 13.6, BUN 18 H, Creatinine 1.40 H, Estimated Creat Clear 49, Estimated GFR 40 L, Est GFR ( Amer) 48 L, Glucose 109 H, Calcium 8.4, Total Bilirubin 0.3, AST 26, ALT 19, Alkaline Phosphatase 88, Total Protein 7.4, Albumin 3.8, Globulin 3.6 H, Albumin/Globulin Ratio 1.1 07/26/24 19:45 07/26/24 19:45 Orders (Tests/Meds): ED MEDICATIONS Discontinued Medications Generic Name Dose Route Start Last Admin Trade Name Freq PRN Reason Stop Dose Admin Lactated Ringer's 1,000 mls @ 999 mls/hr 07/26/24 19:30 07/26/24 19:51 Lactated Ringer's 1000 Ml Bag IV 07/26/24 20:30 999 mls/hr .Q1H1M ISABELLE Administration Ketorolac Tromethamine 15 mg 07/26/24 19:29 07/26/24 19:51 Ketorolac 30mg/Ml Vial IV 07/26/24 19:30 15 mg ONCE ONE Administration Morphine Sulfate 4 mg 07/26/24 19:29 07/26/24 19:51 Morphine 4mg/Ml Syringe IV 07/26/24 19:30 4 mg ONCE ONE Administration Ondansetron HCl 4 mg 07/26/24 19:31 07/26/24 19:51 Ondansetron 4mg/2ml Vial IV 07/26/24 19:32 4 mg ONCE ONE Administration ORDERS Category Date Time Status CBC w/Auto Diff [Complete Blood Count Auto Diff] Stat Lab 07/26/24 19:45 Completed CMP [Comprehensive Metabolic Panel] Stat Lab 07/26/24 19:45 Completed UA [Urinalysis and Microscopic] Stat Lab 07/26/24 19:14 Completed Medical Decision Narrative: 49-year-old with above history and physical with a known proximal ureteral stone who has persistent symptoms after attempting outpatient management. Again I have offered to transferred her to [place] and she is thinking about it at the moment. Her creatinine was mildly elevated last night at 1.4 we will recheck this given the fact that she has had decreased p.o. tolerance denies persistent nausea and vomiting she had no evidence of any infection has no signs or symptoms of sepsis at the moment are rechecking labs giving IV fluids pain medicine nausea medicine I will reassess shortly. No indication for repeat imaging at the moment as we know that she has a obstructing kidney stone and has had persistent symptoms. Reassessment 909 patient does have improvement in her symptoms however given her refractory symptoms at home she would like to still be transferred. She was under the impression that she was supposed to be going to the operating room on Wednesday at [place] however I spoke with Dr. Lewis and she has not on the OR schedule. Nonetheless with her refractory symptoms and right millimeter proximal obstructing stone they are agreeable to have her transferred. I spoke with the nurse practitioner who is on-call for Dr. Krishnamurthy who accepted the patient for further evaluation and management. The patient possibly will go to the operating room tomorrow night but no guarantee. Family and patient are aware of this. Did not repeat the CT scan. Disc images will be power shared and printed on a disk for transfer. Patient will be transferred in stable condition Critical Care Critical Care Time Critical Care Time: Yes Attestation: On 07/26/24, the high probability of a clinically significant, sudden or life threatening deterioration of the following system(s) required my full and direct attention, intervention and personal management. The time I documented below is in addition to time spent performing reported procedures but includes the following listed in this critical care notation. Total Time Total Critical Care Time: 35
[2024-07-26 19:50] LABS: Bilirubin,Urine Negative (Negative); Blood, Urine TRACE-I (Negative); Color,Urine YELLOW (Yellow); Glucose,Urine (UA) 1+ (Negative); Ketones,Urine Negative (Negative); Leukocyte Esterase,Urine Negative (Negative); Nitrate,Urine Negative (Negative); Protein,Urine TRACE (Negative); Specific Gravity, Urine >= 1.030 (1.005-1.030); Urobilinogen,Urine 0.2 EU/dl (0.2)
[2024-07-26] MEDS: KETOROLAC 30MG/ML VIAL 15 MG IV (19:51)
[2024-07-26] MEDS: LACTATED RINGERS 1000ML 1,000 ML 999 ML IV (19:51)
[2024-07-26] MEDS: MORPHINE 4MG/ML SYRINGE 4 MG IV ×2 (19:51→22:25)
[2024-07-26] MEDS: ONDANSETRON 4MG/2ML VIAL 4 MG IV (19:51)
[2024-07-26 20:03] LABS: Basophils # 0.1 K/mm3 (0-0.2); Basophils % 0.4 % (0.1-2.0); Eosinophils # 0.3 K/mm3 (0.0-0.4); Eosinophils % 2.5 % (0.1-12.0); Hematocrit 35.3 % (37.0-47.0); Hemoglobin 10.6 g/dL (12.2-16.2); Lymphocytes # 1.7 K/mm3 (0.7-4.5); Lymphocytes % 14.7 % (10-50); Mean Corpuscular Hemoglobin 22.1 pg (27.0-31.2); Mean Corpuscular Volume 73.5 fl (81-99); Mean Platelet Volume 10.6 fl (7.4-10.4); Monocytes # 0.6 K/mm3 (0.1-1.0); Monocytes % 4.9 % (1.7-9.3); Neutrophils # 9.1 K/mm3 (1.8-7.8); Neutrophils % 77.2 % (37.0-80.0); Nucleated Red Blood Cells # 0 10^3/uL; Nucleated Red Blood Cells % 0 %; Platelet Count 258 K/mm3 (142-424); Red Cell Distribution Width 15.7 % (11.5-17.5); Red Cell Distribution Width-SD 41.2 fL; White Blood Count 11.8 K/mm3 (4.8-10.8)
[2024-07-26 20:05] LABS: Appearance,Urine Slightly Cloudy (Clear)
[2024-07-26 20:14] LABS: Alanine Aminotransferase 19 U/L (12-78); Albumin Level 3.8 g/dl (3.5-5.0); Albumin/Globulin Ratio 1.1 (1.1-1.8); Alkaline Phosphatase 88 U/L (38-126); Anion Gap 13.6 mEq/L (5-15); Aspartate Amino Transferase 26 U/L (14-36); Bilirubin,Total 0.3 mg/dl (0.2-1.3); Blood Urea Nitrogen 18 mg/dl (7-17); Calcium 8.4 mg/dl (8.4-10.2); Carbon Dioxide 26 mmol/L (22.0-30.0); Chloride 103 mmol/L (98-107); Creatinine Clearance Estimated 49 mL/min (50-200); Estimated Glomerular Filt Rate 40 ml/min (>60); GFR (African American) 48 ML/MIN (>60); Globulin 3.6 g/dL (1.3-3.2); Glucose 109 mg/dl (74-100); Potassium 4.6 mmoL/L (3.5-5.1); Sodium 138 mmol/L (136-145); Total Protein,Serum 7.4 g/dl (6.3-8.2)
[2024-07-26 20:30] LABS: Amorphous Sediment,Urine Trace /lpf; Bacteria,Urine 1+ /lpf; RBC,Urine Occasional #/hpf (0-3); Uric Acid Crystals,Urine 1+ /lpf
--- NOTE | 2024-07-26 20:56 | PC.NURSE ---
Spoke with [facility] for transfer, speaking with at this time.
--- NOTE | 2024-07-26 21:31 | PC.NURSE ---
2127- on hold to give report for patient at this time.
--- NOTE | 2024-07-26 21:38 | PC.NURSE ---
report given to Taty MONET at [facility]
--- NOTE | 2024-07-26 22:13 | PC.NURSE ---
Called [facility] for a BLS transfer to [facility]. awaiting for other truck to come back in the formerly [facility] before transfer.
--- NOTE | 2024-07-27 00:36 | PC.NURSE ---
2225- Late entry Pt made aware of the prioritization of EMS runs and she will have a longer wait for transportation to accepting facility. Pt also made aware that she can go POV if she wishes, pt states that she would rather for EMS.
== END 2024-07-27 02:07 | disposition other institution (70) ==
PROVIDERS: Emergency Provider Student in an Organized Health Care Education/Training Program; PCP Nurse Practitioner Family
DX: R10.32 Left lower quadrant pain (principal); N20.1 Calculus of ureter; R11.0 Nausea
CPT/HCPCS: 80053; 81001; 85025; 96361; 96374; 96375; 96376; 99291; J1885; J2270; J2405; J7120

== ENCOUNTER 2024-08-18 10:45 | Outpatient (CLI) | payer MEDICARE, SELFPAY ==
--- OUTSIDE RECORDS SUMMARY | 2024-08-18 10:48 | XMS_ITS | Continuity of Care Document ---
Author Organization [facility] Address [address] [facility] [address] [place] [address] Care Team Providers Care Bulk Cooler Installer Name Role Phone ROSA RITTER Primary Care Provider [phone] Assessment Encounter Date Assessment Date Assessment LastModified by Organization Details LastModified Time 08/03/2024 08/03/2024 ASSESSMENT: María Liriano is a 49-year-old female with kidney stones on the right side. PLAN: 1. Blood work was ordered and completed today. 2. The patient was instructed to perform a 24-hour urine collection using a LITHALINK kit. 3. A renal ultrasound was ordered for six weeks post-procedur e to check for scar tissue causing kidney blockage. 4. A plain X-ray was scheduled for six months from now, prior to the follow-up visit. 5. The patient was advised to call if any issues arise before the next appointment. [email or web address] Not available 08/03/2024 10:23:13 Plan of Treatment Reminders Order Date Submit Date Provider Last Modified By Organization Details Last Modified Time Details Appointments OV EST 15 2024 10:15A Andrey DON MD Not available Not available Not available Lab PTH (parathy roid hormone) , intact + calcium, serum or plasma 2024 025 [email or web address] [facility], [address], [address], [place], [address], 08/10/2024 13:41:56 uric acid, serum or plasma 2024 025 [email or web address] [facility], [address], [address], [place], [address], 08/10/2024 13:41:57 phosphor us, serum or plasma 2024 025 DREA [facility], [address], [address], [place], [address], 08/03/2024 11:48:27 Referral None recorded . Procedures None recorded . Surgeries None recorded . Imaging US, renal [address] (Centralized Scheduling), [address], [place], [address], 08/03/2024 10:23:14 XR, kidney + ureter + bladder [address] (Centralized Scheduling), [address], [place], [address], 08/03/2024 10:23:14 Medication Orders None recorded . Patient TargetsNo targets recorded. Patient InstructionsNo instructions recorded. Reason for Referral None Reported. Results Created Date Observation Date Name Description Value Unit Range Abnormal Flag Note LastModifiedBy Organization Detail LastModifiedTime 07/27/19 25 07/25/2024 CT, abdom en + pelvi s, w/o contr ast No observ ation record ed. [facility] (Med Record) [address], [place], [address], 07/27/2024 09:03:28 Result Notes None recorded. Problems Name Problem SNOMED Code Status Onset Date Resolution Date Notes Provider Name and Address Organization Details Recorded Time Ureteric stone 73191296 Active 2024 KACY DON MD [address], [place], [address] , [place] - [facility] - [place] & [place] 10:22:34 Essential hypertension 81985224 Active 2023 RICCARDO Lozano [address], [place], [address] , [facility] - [facility] & [place] 4 09:01:10 Dyslipidemia 249478612 Active [address], [facility] [address] , [facility] - [facility] & [place] 4 09:03:02 Iron deficiency 86608555 Active [address], [place] [address] , [facility] - [facility] & [place] 4 09:03:05 Hyperparathyr oidism 94647372 Active [address], [facility] [address] , [facility] - [facility] & [place] 4 09:03:12 Obesity 796947329 Active [address], [facility] [address] , [facility] - [facility] & [place] 4 09:03:25 Disorder of function of stomach 389375567 Active [address], [facility] [address] [facility] - [facility] & [place] 4 14:08:55 Obstructive sleep apnea syndrome 19919279 Active [address], [facility] [address] , [facility] - [facility] & [place] 4 14:09:55 Problem Notes None recorded. Procedures Surgical History Date Name Laterality Status Provider Name and Address Organization Details Recorded Time 5 Cystoscopy-Fem krissy completed KACY DON MD [address], [facility] [address], [place] - [facility] & [place] 08/03/2024 10:23:31 biopsy of breast completed Giovanna Birmingham [facility] & [place] 09/07/2023 11:16:50 extraction of wisdom tooth completed Giovanna Birmingham [facility] & [place] 09/07/2023 11:16:57 hernia repair completed RICCARDO Bhandari [address], [place], [address], [facility] & [place] 09/07/2023 14:09:37 Imaging Results None recorded. Procedure Notes None recorded. Medical Equipment None [...] active Not Available Not Available Not Available ondansetron HCl 4 mg tablet TAKE 1 TABLET BY MOUTH EVERY 8 HOURS FOR 4 DAYS NEEDED FOR NAUSEA OR VOMITING active Not Available Not Available No t Available prednisone 20 mg tablet TAKE 1 [...] active Not Available Not Available Not Available sulfamethoxa zole 800 mg-trimethop rim 160 mg tablet TAKE 1 TABLET BY MOUTH TWICE DAILY FOR 3 DAYS active Not Available Not Available No t Available tramadol 50 mg tablet TAKE 1 TABLET BY MOUTH EVERY 6 HOURS NEEDED FOR MODERATE PAIN active Not Available Not Available No t Available ketorolac 10 mg tablet TAKE 1 TABLET BY MOUTH EVERY 8 HOURS FOR 3 DAYS NEEDED FOR PAIN active Not Available Not Available No t Available levothyroxin e 75 mcg tablet TAKE 1 TABLET BY MOUTH DAILY active Not Available Not Available Not Available alprazolam 0.5 mg tablet TAKE 1 TABLET BY MOUTH TWICE DAILY NEEDED FOR ANXIETY active Not Available Not Available No t Available amoxicillin 875 mg tablet TAKE 1 TABLET BY MOUTH TWICE DAILY FOR 10 DAYS active Not Available Not Available No t Available tamsulosin 0.4 mg capsule TAKE 1 CAPSULE BY MOUTH EVERY NIGHT AT BEDTIME active Not Available Not Available No t [...] active Not Available Not Available Not Available oxycodone 5 mg tablet TAKE 1 TABLET BY MOUTH EVERY 8 HOURS NEEDED FOR PAIN active Not Available Not Available No t Available rosuvastatin 5 mg tablet TAKE 1 TABLET BY MOUTH EVERY NIGHT active Not Available Not Available No t Available Farxiga 5 mg tablet TAKE 1 TABLET BY MOUTH DAILY active Not Available Not Available Not Available baclofen 5 mg tablet TAKE 1 TABLET BY MOUTH THREE TIMES DAILY active Not Available Not Available Not Available Wegovy 2.4 mg/0.75 mL subcutaneous pen injector ADMINISTER [...] height Body mass index (BMI) Body weight Oxygen saturation Oxygen saturation in Arterial blood by Pulse oximetry Heart rate Systolic blood pressure Diastolic blood pressure Provider Name and Address Organization Details Last Updated DateTime 172.72 cm 44.7 kg/m2 990751. 16 g 97 % 97 % 67 /min 132 mm[Hg] 74 mm[Hg] Deana Mabry [facility] & [place] 10:06:27 Social History Question Answer Notes LastModified by Organizat ion Details LastModified Time Tobacco Smoking Status Never Smoker Kasie Caballero [facility], [facility] & [place] 09/07/2023 13:46:55 What Is Your Level Of Alcohol Consumption? None Information not available 09/07/2023 Sex: Unknown Functional [...] available 09/04/2023 12:54:27 Medical History Condition Response Hyperthyroidism Y Depression Y Anemia Y Deep Vein Thrombosis N Diabetes N Anxiety Disorder Y Bleeding Disorder N Asthma Y Sleep Apnea Y High Cholesterol Y Liver Disease N Heart Disease N Pulmonary Embolism N Headaches Y Hypertension Y Kidney Disease N Gynecological HistoryNo gynecological history recorded. Obstetrics History GPAL:G 0 P 0 0 0 0 Past Encounters Encounter ID Performer Location Encounter Start Date Encounter Closed Date Diagnosis/Indication Diagnosis SNOMED-CT Code Diagnosis ICD10 Code Diagnosis Note [id number] KACY DON MD [facility] [place] [address] 08/03/2024 09:38:35 08/03/2024 10:29:15 Ureteric stone 78395269 N20.1 Health Concerns Section Related Observation LastModified by Organization Detai ls LastModified Time None Recorded Concern Status LastModified by Organization Details LastModified Time None Recorded Payers Encounter Date Sequence Insurance Name Policy Number Policy Crocker Covered Member ID Crocker Member ID Guarantor Name 08/03/2024 2 [employer] [facility] (MEDICAID HMO) María Liriano [id number] María Liriano 08/03/2024 1 [facility] (MEDICARE REPLACEMENT/A DVANTAGE - HMO) [id number] María Brunner Heri [id number] María Liriano Notes Date Note Type Note Provider Name and Address Organization Details Recorded Time 08/03/2024 text/html 08/03/24 CC: [id number][age][id number]-female present as new patient for cystoscopy w/L stent removal. María Liriano is a 49-year-old female who presents for a new visit for stent removal and cystoscopy. There are stones on the right kidney that are small and not currently causing significant concern. However, due to the presence of multiple stones, further evaluation is recommended to determine the underlying cause. Blood work will be conducted today, and a 24-hour urine collection will be performed using a kit from [employer]. An ultrasound will be ordered six weeks post-procedure to ensure there is no scar tissue causing kidney blockage. A follow-up appointment is scheduled in six months, with a plain X-ray to be done prior to the visit. 07/28/24 L URS, laser, L stent07/27/24 Cr 1.3, GFR 50, Hgb 9.1, Hct 30.704 CT abd/pel w/o ([facility]): several bilateral renal collecting system calcification's, no R ureteric stone disease, a few areas of renal cortical scarring bilaterally, 8x7mm calcification in the junction of L renal pelvis and proximal ureter resulting in mild pelviectasis and caliectasis, also delay in the L renal nephrogram and mild perinephric and peripelvic fat stranding, a focal 1mm renal hypodensity in the posteroinferior L kidney that cannot be further characterized on the current examination statistically, this is like a cyst KACY DON MD [address], [place], [address], [facility] - [place] & [place] 08/03/2024 14:16:08 OBGyn Episode No OBEpisode recorded.
--- OUTSIDE RECORDS SUMMARY | 2024-08-18 10:48 | XMS_ITS | Data Portability ---
Author Organization [place] - [place] & [place] [facility] ADMIN Address [address] [place] [phone] Care Team Providers Care Resident In Diagnostic Radiology Name Role Phone ROSA RITTER Primary Care [...] or PRN. [email or web address] Not available 10/08/2023 13:58:09 08/03/2024 08/03/2024 ASSESSMENT: María Liriano is a 49-year-old female with kidney stones on the right side. PLAN: 1. Blood work was ordered and completed today. 2. The patient was instructed to perform a 24-hour urine collection using a [employer] kit. 3. A renal ultrasound was ordered for six weeks post-procedure to check for scar tissue causing kidney [...] Details Appointments OV EST 15 2024 10:15A M KACY DNO MD Not available Not available Not available Lab PTH (parathyr oid hormone), intact + calcium, serum or plasma 2024 025 [email or web address] [facility], [address], [address], [place], [address], 08/10/2024 13:41:56 uric acid, serum or plasma 2024 025 [email or web address] [facility], [address], [address], [place], [address], 08/10/2024 13:41:57 phosphoru s, serum or plasma 2024 025 [email or web address] [facility], [address], [address], [place], [address], 08/03/2024 11:48:27 CBC w/ auto diff 2023 024 [email or web address] [facility], [address], [address], [place], [address], 10/01/2023 14:03:55 iron + TIBC + ferritin, serum 2023 024 [email or web address] [facility], [address], [address], [place], [address], 10/01/2023 14:03:55 copper, serum or plasma 2023 024 [email or web address] [facility], [address], [address], [place], [address], 10/01/2023 14:03:57 CMP, serum or plasma 2023 024 [email or web address] [facility], [address], [address], [place], [address], 10/01/2023 14:03:55 HbA1c (hemoglob in A1c), blood 2023 024 [email or web address] [facility], [address], [address], [place], [address], 10/01/2023 14:03:55 lipid panel, serum 2023 024 [email or web address] [facility], [address], [address], [place], [address], 10/01/2023 14:03:56 vitamin D, 25-hydrox y, total, serum 2023 024 [email or web address] [facility], [address], [address], [place], [address], 10/01/2023 14:03:56 vitamin A (retinol) , serum 2023 024 [email or web address] [facility], [address], [address], [place], [address], 10/01/2023 14:03:56 vitamin E, serum 2023 024 [email or web address] [facility], [address], [address], [place], [address], 10/01/2023 14:03:56 PTH (parathyr oid hormone), intact, serum or plasma 2023 024 [facility], [address], [address], [place], [address], 10/01/2023 14:03:56 TSH + free T4, serum 2023 024 [facility], [address], [address], [place], [address], 10/01/2023 14:03:56 folate, serum 2023 024 [facility], [address], [address], [place], [address], 10/01/2023 14:03:56 methylmal hang, QN, serum or plasma 2023 024 [email or web address] [facility], [address], [address], [place], [address], 10/01/2023 14:03:57 thiamine, QN, blood 2023 024 [email or web address] [facility], [address], [address], [place], [address], 10/01/2023 14:03:57 Referral None recorded. Procedures None recorded. Surgeries esophagog astroduod enoscopy (SURG) 2023 024 Taty Richards MD, [address], [address], [place], [address], 01/04/2024 13:17:44 Imaging US, renal [address] (Centralized Scheduling), [address], [place], [address], 08/03/2024 10:23:14 XR, kidney + ureter + bladder [address] (Centralized Scheduling), [address] , [place], [address], 08/03/2024 10:23:14 XR, chest, 2 view 2023 024 [email or web address] [facility] (Centralized Scheduling), [address], [place], [address], 10/01/2023 14:03:28 electroca rdiogram, routine ECG, 12 leads min 2023 024 [email or web address] Not available 10/01/2023 13:49:45 Medication Orders None recorded. Patient Targets Encounter Date Encounter Id Patient Goals Patient Target Last Modified By Organization Details Last Modified Time 1. Start keeping food records2. Decrease eating out to 2-3 times a week3. Drink 64 oz fluid/day, decrease OJ to 4oz4. Physical activity 3 times a week for 15 minutes5. Review manual for meal and snack ideas [email or web address] Not available 09/07/2023 16:35:30 Patient InstructionsNo instructions recorded. Reason for Referral None Reported. Results Created Date Observation Date Name Description Value Unit Range Abnormal Flag Note LastModifiedBy Organization Detail LastModifiedTime 08/04/1908/03/2024 CALCI UM TOTAL calcium 8.6 mg/dL 8.5-10 .5 Not Available [facility] ([facility]) [address] [facility], [place], [address], 08/03/2024 11:48:26 08/04/19 25 08/03/2024 PHOSP HOROU S phosphorus 3.2 mg/dL 2.5-4. 9 Not Available [facility] ([facility]) [address] [facility], [place], [address], 08/03/2024 11:48:27 08/04/19 25 08/03/2024 URIC ACID uric acid 4.2 mg/dL 2.6-6. 0 Not Available [facility] ([facility]) [address] [facility], [place], [address], 08/03/2024 12:13:16 08/04/19 25 08/04/2024 PTH, INTAC T PTH, intact 59 pg/mL 15-65 Perfo rmed at: - [facility] [address] [address] Lab Direc tor: Cristian sloan PhD, Phone : [phone] Not Available [facility] ([facility]) [address] [facility], [place], [address], 08/04/2024 11:13:13 04/07/25/2024 CT, abdom en + pelvi s, w/o contr ast No observ ation record ed. [facility] (Med Record) [address], [place], [address], 07/27/2024 09:03:28 Result Notes None recorded. Problems Name Problem SNOMED Code Status Onset Date Resolution Date Notes Provider Name and Address Organization Details Recorded Time Ureteric stone 87641111 Active 2024 KACY DON MD [address], [place], [address] , [place] - [facility] & [place] 5 10:22:34 Essential hypertension 69873114 Active [address], [place], [address] , [place] - [facility] & [place] 4 09:01:10 Dyslipidemia 142679572 Active [address], [place], [address] , [place] [facility] & [place] 4 09:03:02 Iron deficiency 27302223 Active [address], [place], [address] , [place] [facility] & [place] 4 09:03:05 Hyperparathyr oidism 91736259 Active [address], [place], [address] , [place] [facility] & [place] 4 09:03:12 Obesity 386535881 Active [address], [place], [address] , [place] [facility] & [place] 4 09:03:25 Disorder of function of stomach 187015611 Active [address], [place], [address] , [facility] & [place] 4 14:08:55 Obstructive sleep apnea syndrome 07864751 Active 2023 [address], [place], [address] , [facility] & [place] 4 14:09:55 Problem Notes None recorded. Procedures Surgical History Date Name Laterality Status Provider Name and Address Organization Details Recorded Time Cystoscopy-Fem krissy completed KACY DON MD [address], [place], [address], [facility] & [place] 08/03/2024 10:23:31 biopsy of breast completed Giovanna Birmingham [facility] & [place] 09/07/2023 11:16:50 extraction of wisdom tooth completed Giovanna Birmingham [facility] & [place] 09/07/2023 11:16:57 hernia repair completed RICCARDO Bhandari [address], [place], [address], [facility] & [place] 09/07/2023 14:09:37 Imaging Results Imaging Date Name Status LastModified by Organiz ation Details LastModified Time 07/25/2024 CT, abdomen + pelvis, w/o contrast completed [facility] (Med Record) [address], [place], [address], 07/27/2024 09:03:28 Procedure Notes None recorded. Medical Equipment None [...] and Address Organization Details Last Updated DateTime 4 172.72 cm 49.5 kg/m2 247873. 32 g 98.3 [degF] 60 /min 166 mm[Hg] 85 mm[Hg] Kasie Ada [place] - [facility] & [place] 4 13:48:51 Date Recorded Body height Body mass index (BMI) Body weight Oxygen saturation Oxygen saturation in Arterial blood by Pulse oximetry Heart rate Systolic blood pressure Diastolic blood pressure Provider Name and Address Organization Details Last Updated DateTime 5 172.72 cm 44.7 kg/m2 340724. 16 g 97 % 97 % 67 /min 132 mm[Hg] 74 mm[Hg] Deana Mabry [facility] & [place] 10:06:27 Social History Question Answer Notes LastModified by Organizat ion Details LastModified Time Tobacco Smoking Status Never Smoker Kasie Caballero null, [facility] & [place] 09/07/2023 13:46:55 What Is Your Level Of Alcohol Consumption? None [email or web address] Information not available 09/07/2023 Sex: Unknown Functional [...] SNOMED-CT Code Diagnosis ICD10 Code Diagnosis Note [id number] RICCARDO Lozano [facility] [address] [place] [address] 09/07/2023 11:31:58 09/07/2023 14:21:54 Essential hypertension 42736622 I10 Dyslipidemia 924029564 E 78.5 Iron deficiency 77136169 E61.1 Hyperparathyroidism 6699 9008 E21.3 Obesity 542830577 E66.9 Weight loss surgery options discussed at [...] testing has been completed Pre-surger y evaluation 890785496 Z01.818 Disorder o f function of stomach 491087732 K31.89 Obstructiv e sleep apnea syndrome 44113377 G47.[id number], LD [facility] [address] [facility] [address] [place] [address] 09/07/2023 15:04:06 09/08/2023 10:44:50 Essential hypertension 13776364 I10 Obstructiv e sleep apnea syndrome 09514139 G47.33 Morbid obesity 711497027 E66.01 BMI 49.[id number], LD [facility] [address] [place] [address] 10/08/2023 11:42:36 10/08/2023 13:00:11 Essential hypertension 44220725 I10 Obstructiv e sleep apnea syndrome 58038619 G47.33 Morbid obesity 746964744 E66.01 Unintentio nal weight gain 1961185700 44447 R63.5 [id number] KACY DON MD [facility] [place] [address] 08/03/2024 09:38:35 08/03/2024 10:29:15 Ureteric stone 35004231 N20.1 Health Concerns Section Related Observation LastModified by Organization Detai ls LastModified Time None Recorded Concern Status LastModified by Organization Details LastModified Time None Recorded Advance Directives Directive None Recorded Payers Insurance Date Sequence Insurance Name Policy Number Policy Crocker Covered Member ID Crocker Member ID Guarantor Name 08/03/2024 1 [facility] ([facility]ANT[place] - HMO) [id number] María Liriano [id number] María Liriano 08/03/2024 2 [facility] (MEDICAID HMO) María Stoddardall [id number] María Stoddardall 08/03/2024 1 [place] SANJAY LOZANO OF [facility] (MEDICARE REPLACEMENT REGIONAL O) [id number] María Liriano [id number] María Liriano Notes Date Note Type Note [...] physical hunger, makes me happy. RICCARDO Lozano [address] , [place], [address], [facility] - [place] & [place] 09/07/2023 14:48:49 4 text/html Intake Template RDN met w/ María Liriano, 1975, who is a 48 YO to [...] skipsL: Eats out, chicken sand, burger, pizzaD: [place], chicken and dumplins, spaghettiSnacks: chips Eating out: [...] and monitor PRN. MARÍA SHELL RD, LD [address], [place], [address], [facility] & [place] 09/07/2023 16:35:42 4 text/html RDN met w/ pt today for [...] with walking. EWELINA MON RDN, LD [address] [facility], [place], [address], [facility] & [place] 10/08/2023 13:58:45 5 text/html 08/03/24 CC: [id number] present as new patient for cystoscopy w/L [...] will be performed using a kit from [employer]. An ultrasound will be ordered six weeks post-procedure to ensure there is no scar tissue causing kidney blockage. A follow-up appointment is scheduled in six months, with a plain X-ray to be done prior to the visit. 07/28/24 L URS, laser, L stent07/27/24 Cr 1.3, GFR 50, Hgb 9.1, Hct 30.704 CT abd/pel w/o ([facility]): several bilateral renal collecting system calcification's, no [...] is like a cyst KACY DON MD [address], [place], [address], [facility], [place] [facility] - [place] & [place] 08/03/2024 14:16:08 OBGyn Episode No OBEpisode recorded.
--- OUTSIDE RECORDS SUMMARY | 2024-08-18 10:48 | XMS_ITS | Continuity of Care Document ---
Author Organization [facility] Phone Care Team Providers Care Post Hole Digger Name Role Phone HARVEY LEWIS Surgeon HARVEY LARSON Admitting HARVEY LARSON Primary Attending ROSA RITTER Unavailable Unavailable ROSA RITTER Primary Care Unavailable ALLERGIES AND ADVERSE REACTIONS ALLERGIES AND ADVERSE REACTIONS Code System Allergy Substance Adverse Reaction Date Reaction (Severity) Comment Status Reported By Updated By No Known Allergies [id number] on July 27, 2024 7:10:00 AM UTC ASSESSMENTS Kidney stone ; FAMILY HISTORY RELATION: Father Status: Cause of : Unknown Age at : Unknown SNOMED-CT Diagnosis Age At Onset [id number] Essential hypertension [id number] Heart disease RELATION: Mother Status: Cause of : Unknown Age at : Unknown SNOMED-CT Diagnosis Age At Onset [id number] Essential hypertension [id number] Diabetes mellitus PROBLEMS PATIENT PROBLEMS Code Description/Comments Category Status Upda gama By [id number] Kidney stone active [id number] on A pril 2024 6:47:58 AM UTC RESULTS Patient: CELINE KULKARNI Date of : [birth year] LABORATORY RESULTS ORDER 301: BASIC METABOLIC P REI (LOINC: 97359-0) ORDER DATE: July 27, 2024 6:54:00 AM UTC Specimen Source: PLASMA Specimen Type: Plasma specim en PERFORMING LAB: [address] [id number] Result Comment: Final Result Date: July 27, 2024 10:24:00 AM UTC (TECH: ARR) LOINC TEST FLAG RESULT REFERENCE RANGE UPDA GAMA BY 2951-2 Sodium [Moles/volume] in Serum or Plasma N 138 mmol/L 136 mmol/L - 145 mmol/L July 27, 2024 10:24:00 AM UTC (TECH: ARR) 2823-3 Potassium [Moles/volume] in Serum or Plasma N 3.9 mmol/L 3.6 mmol/L - 5.0 mmol/L July 27, 2024 10:24:00 AM UTC (TECH: ARR) 5-0 Chloride [Moles/volume] in Serum or Plasma N 104 mmol/L 98 mmol/L - 107 mmol/L July 27, 2024 10:24:00 AM UTC (TECH: ARR) 2027-9 Carbon dioxide, total [Moles/volume] in Serum or Plasma N 27.1 mmol/L 21.0 mmol/L - 32.0 mmol/L July 27, 2024 10:24:00 AM UTC (TECH: ARR) 88741-5 Anion gap in Blood N 10.8 A pril 2024 10:24:00 AM UTC (TECH: ARR) 2345-7 Glucose [Mass/volume] in Serum or Plasma N 97 mg/dl 70 mg/dl - 120 mg/dl July 27, 2024 10:24:00 AM UTC (TECH: ARR) 6299-2 Urea nitrogen [Mass/volume] in Blood N 18 mg/dL 7 mg/dL - 18 mg/dL July 27, 2024 10:24:00 AM UTC (TECH: ARR) 88447-8 Creatinine [Moles/volume] in Blood N 1.3 mg/dL 0.6 mg/dL - 1.3 mg/dL July 27, 2024 10:24:00 AM [place] (TECH: ARR) 40215-7 Glomerular filtration rate/1.73 sq M.predicted by Creatinine-based formula (MDRD) L 50 mlpermin 60 mlpermin July 27, 2024 10:24:00 AM UT (TECH: ARR) 03953-1 Osmolality of Serum or Plasma by calculated by sum of electrolytes N 289 mosm/kg 275 mosm/kg - 301 mosm/kg July 27, 2024 10:24:00 AM UTC (TECH: ARR) 92069-3 Calcium [Mass/volume] in Serum or Plasma L 8.3 mg/dl 8.5 mg/dl - 10.5 mg/dl July 27, 2024 10:24:00 AM UTC (TECH: ARR) ORDER 401: CBC AUTO W DIFF ( LOINC: 90856-0) ORDER DATE: July 27, 2024 6:54:00 AM UTC Specimen Source: EDTA Specimen Type: Blood specime n with EDTA PERFORMING LAB: [address] [id number] Result Comment: Final Result Date: July 27, 2024 9:57:00 AM UTC (TECH: JNJ) LOINC TEST FLAG RESULT REFERENCE RANGE UPDA GAMA BY 6690-2 Leukocytes [#/volume] in Blood by Automated count N 10.3 K/ul 4.0 K/ul - 10.5 K/ul July 27, 2024 9:57:00 AM UTC (TECH: JNJ) 789-8 Erythrocytes [#/volume] in Blood by Automated count L 4.1 M/mm3 4.2 M/mm3 - 6.4 M/mm3 July 27, 2024 9:57:00 AM UTC (TECH: JNJ) 718-7 Hemoglobin [Mass/volume] in Blood L 9.1 gm/dl 12.5 gm/dl - 16.0 gm/dl July 27, 2024 9:57:00 AM UTC (TECH: JNJ) 47454-1 Hematocrit [Volume Fraction] of Blood L 30.7 % 37.0 % - 47.0 % July 27 9:57:00 AM UTC (TECH: JNJ) 787-2 Erythrocyte mean corpuscular volume [Entitic volume] by Automated count L 74.7 fl 78 fl - 100 fl July 27, 2024 9:57:00 AM UTC (TECH: JNJ) 785-6 Erythrocyte mean corpuscular hemoglobin [Entitic mass] by Automated count L 22.1 pg 27 pg - 31 pg July 27, 2024 9:57:00 AM UTC (TECH: JNJ) 786-4 Erythrocyte mean corpuscular hemoglobin concentration [Mass/volume] by Automated count L 29.6 g/dl 32 g/dl - 36 g/dl July 27, 2024 9:57:00 AM UTC (TECH: JNJ) 88860-9 Erythrocyte distribution width [Ratio] H 15.8 % 11.5 % - 14.0 % July 27, 2024 9:57:00 AM UTC (TECH: JNJ) 777-3 Platelets [#/volume] in Blood by Automated count N 208 K/ul 150 K/ul - 450 K/ul July 27, 2024 9:57:00 AM UTC (TECH: [employer]) 95333-1 Platelet mean volume [Entitic volume] in Blood by Automated count H 11.2 fl 6 fl - 9.5 fl July 27, 2024 9:57:00 AM UTC (TECH: [employer]) 30861-2 Neutrophils/100 leukocytes in Blood H 74.7 % 43 % - 65 % July 27 9:57:00 AM UTC (TECH: [employer]) 736-9 Lymphocytes/100 leukocytes in Blood by Automated count L 16.4 % 20.5 % - 45.5 % July 27 9:57:00 AM UTC (TECH: [employer]) 5905-5 Monocytes/100 leukocytes in Blood by Automated count N 5.5 % 5.5 % - 11.7 % July 27 9:57:00 AM UTC (TECH: [employer]) 713-8 Eosinophils/100 leukocytes in Blood by Automated count N 2.6 % 0.9 % - 2.9 % July 27 9:57:00 AM UTC (TECH: [employer]) 706-2 Basophils/100 leukocytes in Blood by Automated count N 0.4 % 0.2 % - 1.0 % July 27 9:57:00 AM UTC (TECH: [employer]) 60653-6 Immature granulocytes/100 leukocytes in Blood by Automated count N 0.4 % 0.0 % - 0.8 % July 27 9:57:00 AM UTC (TECH: [employer]) 89021-3 Nucleated cells [#/volume] in Blood N 0.0 % July 27 9:57:00 AM UTC (TECH: [employer]) 10962-3 Neutrophils [#/volume] in Blood H 7.7 K/uL 2.2 K/uL - 4.8 K/uL July 27, 2024 9:57:00 AM UTC (TECH: [employer]) 731-0 Lymphocytes [#/volume] in Blood by Automated count N 1.7 CELL/MCL 1.3 CELL/MCL - 2.9 CELL/MCL July 27, 2024 9:57:00 AM UTC (TECH: [employer]) 742-7 Monocytes [#/volume] in Blood by Automated count N 0.6 CELL/MCL 0.3 CELL/MCL - 0.8 CELL/MCL July 27, 2024 9:57:00 AM UTC (TECH: [employer]) 711-2 Eosinophils [#/volume] in Blood by Automated count H 0.3 CELL/MCL 0 CELL/MCL - 0.2 CELL/MCL July 27, 2024 9:57:00 AM UTC (TECH: [employer]) 704-7 Basophils [#/volume] in Blood by Automated count N 0.0 CELL/MCL 0.0 CELL/MCL - 1.0 CELL/MCL July 27, 2024 9:57:00 AM UTC (TECH: [employer]) 77135-3 Immature granulocytes [#/volume] in Blood N 0.04 K/ul July 27 9:57:00 AM UTC (TECH: [employer]) 20036-4 Nucleated cells [#/volume] in Blood N 0.00 K/uL July 27 9:57:00 AM UTC (TECH: [employer]) 27472-2 Manual Differential panel - Blood N NO July 27, 2024 9:57:00 AM UTC (TECH: JNJ) ORDER 501: MAGNESIUM (LOINC: 24844-9) ORDER DATE: July 27, 2024 6:54:00 AM UTC Specimen Source: PLASMA Specimen Type: Plasma specim en PERFORMING LAB: [address] [id number] Result Comment: Final Result Date: July 27, 2024 10:24:00 AM UT (TECH: ARR) LOINC TEST FLAG [place]ULT [place] [address]-3 Magnesium [Mass/volume] in Serum or Plasma N 1.8 MG/DL 1.8 MG/DL - 2.4 MG/DL July 27, 2024 10:24:00 AM UTC (TECH: ARR) ORDER 1200: URINE TEST (LOINC: 2106-3) ORDER DATE: July 28, 2024 9:47:00 AM UTC Specimen Source: URINE Specimen Type: Urine specime n PERFORMING LAB: [address] [id number] Result Comment: Final Result Date: July 28, 2024 10:17:00 AM UTC (TECH: ARR) LOINC TEST FLAG RESULT REFERENCE RANGE UPDA GAMA BY 2106-3 Choriogonadotropin ( test) [Presence] in Urine N NEGATIVE NEGATIVE July 28, 2024 10:17:00 AM UTC (TECH: ARR) 80722-4 Reagent Lot number N [id number] A pri 2024 10:17:00 AM UTC (TECH: ARR) 44931-5 Choriogonadotropin [Units/volume] in Serum or Plasma N 06/01/25 July 28, 2024 10:17:00 AM UTC (TECH: ARR) 90110-6 Internal control result N OK POSITI VE July 28, 2024 10:17:00 AM UTC (TECH: ARR) ORDER 1300: GLUCOSE BEDSIDE TESTING (LOINC: 74594-8) ORDER DATE: July 28, 2024 10:03:00 AM UTC Specimen Source: WHOLE BLOOD Specimen Type: Whole blood s ample PERFORMING LAB: [address] [id number] Result Comment: July 28 10:22:00 AM UTC Test performed by: [id number] ; Instrument: [id number] Final Result Date: July 28, 2024 10:22:00 AM UTC LOINC TEST FLAG [place] [address]-5 Glucose [Mass/volume] in Capillary blood by Glucometer N 87 mg/dl 70 mg/dl - 105 mg/dl July 28, 2024 10:22:00 AM UTC ORDER 1500: CALCULI UR STONE ANALYSIS (LOINC: 9796-4) ORDER DATE: July 28, 2024 1:41:00 PM UTC Specimen Source: STONE Specimen Type: Calculus spec imen PERFORMING LAB: [address] [id number] Result Comment: August 06 7:08:00 PM UTC Performed at: [facility] [place] Result Comment: August 06, 2024 7:08:00 PM UTC [address] [place] [id number] Result Comment: August 06, 2024 7:08:00 PM UTC Prepress Specialist: Jorge Valenzuela PhD, Phone: [phone] Result Comment: August 06, 2024 7:08:00 PM UTC Final Result Date: July 28, 2024 1:41:00 PM UTC (TECH: LAB) LOINC TEST FLAG RES[place] [address]-6 Specimen source identified N Comment July 28, 2024 1:41:00 PM UTC (TECH: LAB) 9796-4 Color of Stone N [place] July 28, 2024 1:41:00 PM UTC (TECH: LAB) 9802-0 Size [Entitic volume ] of Stone N 3x2 mm July 28, 2024 1:41:00 PM UTC (TECH: LAB) 9804-6 Weight of Stone N 40 mg Apri l 2024 1:41:00 PM UTC (TECH: LAB) 02727-7 Calcium oxalate dihydrate crystals [Presence] in Stone by Infrared spectroscopy N July 28, 2024 1:41:00 PM UTC (TECH: LAB) 75211-4 Calcium oxalate monohydrate crystals [Presence] in Stone by Infrared spectroscopy N 20 % July 28, 2024 1:41:00 PM UTC (TECH: LAB) 20828-8 Calcium/Phosphate [Mass Ratio] in Serum or Plasma N July 28, 2024 1:41:00 PM UTC (TECH: LAB) 91718-8 Calcium/Phosphate [Mass Ratio] in Serum or Plasma N July 28, 2024 1:41:00 PM UTC (TECH: LAB) 30173-2 Calcium phosphate crystals [Presence] in Stone by Infrared spectroscopy N July 28, 2024 1:41:00 PM UTC (TECH: LAB) 80858-2 Cystine [Moles/volume] in Serum or Plasma N July 28, 2024 1:41:00 PM UTC (TECH: LAB) 86428-0 Cholesterol/Total in Stone N July 28, 2024 1:41:00 PM UTC (TECH: LAB) 88591-8 Calcium bilirubinate/Total in Stone N July 28, 2024 1:41:00 PM UTC (TECH: LAB) 64337-0 Calcium carbonate crystals [Presence] in Stone by Infrared spectroscopy N July 28, 2024 1:41:00 PM UTC (TECH: LAB) 20945-2 Triamterene/Total in Stone N July 28, 2024 1:41:00 PM UTC (TECH: LAB) 02060-0 Newberyite/Total in Stone N July 28, 2024 1:41:00 PM UTC (TECH: LAB) 14682-0 Calculus analysis [interpretation] in Stone N Comment July 28, 2024 1:41:00 PM UTC (TECH: LAB) 8251-1 Service comment N Apri l 2024 1:41:00 PM UTC (TECH: LAB) 27247-9 Triple phosphate crystals [type] in Stone by Light microscopy N July 28, 2024 1:41:00 PM UTC (TECH: LAB) 24764-5 Drugs identified in Urine N July 28, 2024 1:41:00 PM UTC (TECH: LAB) 43191-2 2,8-dihydroxyadenine / Creatinine [Molar ratio] in Urine N July 28, 2024 1:41:00 PM UTC (TECH: LAB) 69409-3 Ammonium urate/Total in Stone N July 28, 2024 1:41:00 PM UTC (TECH: LAB) 40664-8 Palmitate (C16:0)/Creatinine [Molar ratio] in Urine N July 28, 2024 1:41:00 PM UTC (TECH: LAB) 83883-9 Sodium urate/Total i n Stone by Infrared spectroscopy N July 28, 2024 1:41:00 PM UTC (TECH: LAB) 29499-6 Urate/Total in Stone N 80 % July 28, 2024 1:41:00 PM UTC (TECH: LAB) 56733-5 Calcium [Presence] i n Urine N July 28, 2024 1:41:00 PM UTC (TECH: LAB) 71012-9 Bilirubin.total/Tota l in Stone by Infrared spectroscopy N July 28, 2024 1:41:00 PM UTC (TECH: LAB) 86506-0 Calcium hydrogen phosphate dihydrate/Total in Stone N July 28, 2024 1:41:00 PM UTC (TECH: LAB) 57695-3 Other N July 28, 2024 1:41:00 PM UTC (TECH: LAB) 64468-3 Xanthine/Total in Stone N July 28, 2024 1:41:00 PM UTC (TECH: LAB) 74302-5 Urate dihydrate/Tota l in Stone N July 28, 2024 1:41:00 PM UTC (TECH: LAB) 40828-6 Unspecified body region Image ID N . July 28, 2024 1:41:00 PM UTC (TECH: LAB) ORDER 1700: GLUCOSE BEDSIDE TESTING (LOINC: 36624-6) ORDER DATE: July 28, 2024 3:57:00 PM UTC Specimen Source: WHOLE BLOOD Specimen Type: Whole blood s ample PERFORMING LAB: [address] [id number] Result Comment: July 28 4:02:00 PM UT Test performed by: [id number] ; Instrument: [id number] Final Result Date: July 28, 2024 4:02:00 PM UTC LOINC TEST FLAG [place] [address]-1 Glucose [Mass/volume ] in Capillary blood by Glucometer H 115 mg/dl 70 mg/dl - 105 mg/dl July 28 4:02:00 PM UT LABORATORY NARRATIVE RESULTS Information is not available RADIOLOGY RESULTS ORDER 700: CT ABD PEL W IV C ONT ONLY (LOINC: 59323-5) ORDER DATE: July 27, 2024 7:09:00 AM UTC PERFORMING LAB: [address] [id number] Final Result Date: July 27, 2024 4:44:[address] [address] Name: SHAD BERGER Exam Date: 07/27/2024 : 1975 Age 49 years Gender: F Physician: BRANDY YOUNG Facility: [facility] Facility HSV: Inpatient Exam: CT ABD PEL W (IV CONT ONLY) HISTORY: Renal calculus, flank pain COMMENT: Multiplanar computed tomographic imaging of the abdomen/pelvis using standard protocol. Intravenous contrast: With Oral contrast: Without Comparison: None Individualized dose optimization technique was used, which includes the following: - Automated exposure control - Adjustment of the mA and/or kV according to patient size - Use of iterative reconstruction technique There is bibasilar discoid atelectasis/scarring. Heart size is top normal. Liver: Enlarged with a maximal craniocaudal length of 18.8 cm. Parenchyma is mildly hypodense raising the possibility of fatty infiltration in the appropriate clinical setting, but the diagnosis of fatty liver on contrast-enhanced CT is not as reliable as on unenhanced CT. Gallbladder: Mildly contracted. Moderate dependent intraluminal density suggesting sludge, concentrated bile, or fine gallstones. Pancreas: Mild fatty atrophy. Spleen: Enlarged with craniocaudal length of 14.9 cm. Adjacent small splenule. Adrenal glands: Within normal limits. Kidneys: 1.1 x 0.7 x 0.6 cm obstructing calculus at left ureteropelvic junction; mild hydronephrosis without significant perinephric stranding; hyperdensity in the renal collecting system may represent excreted contrast and/or hemorrhage; symmetric nephrograms. Few right interpolar nonobstructing calculi, largest 0.2 cm. Right upper pole very small cyst with density of 2 HU (Bosniak I). Few tiny subcentimeter cystic foci bilaterally (Bosniak II). No follow-up imaging is recommended (References: JACR 2017; 264-273, Management of the Incidental Renal Mass on CT; [employer] 2020; 814-848, Bosniak Classification of Cystic Renal Masses, Version 2019). Legally authenticated by SHON OSORIO 2024-07-27 12:44:00 Urinary bladder: Nearly empty. Intraluminal hyperdensity may represent excreted contrast and/or hemorrhage. The uterus is mildly enlarged. Right adnexal 2.4 x 1.6 x 2.3 cm cystic focus with density of 25 HU suggesting hemorrhagic cyst or corpus luteum. The colon is redundant. Mild colonic fecal material. There is no significant mural thickening. There is no bowel dilatation or obstruction. Suboptimally visualized appendix is likely within normal limits. There is no significant free fluid or fluid collection. There is no pathologic-sized adenopathy. No abdominal aortic aneurysm. There are degenerative changes in the spine and sacroiliac joints. IMPRESSION: 1. 1.1 cm mildly obstructing left ureteropelvic junction calculus. 2. Tiny nonobstructing right renal calculi. 3. Hyperdensity in left renal collecting system and urinary bladder suggesting excreted contrast and/or hemorrhage. 4. Hepatosplenomegaly and possible mild hepatic steatosis. 5. Gallbladder sludge, concentrated bile, or fine gallstones. 6. Right adnexal 2.4 cm hemorrhagic cyst or corpus luteum. Electronically signed by: Devon Menendez MD 07/27/2024 02:31 PM EDT RP Dictated By: DEOVN MENENDEZ Transcribed By: Transcribed On: 07/27/2024 12:44 PM Electronically signed by: DEVON MENENDEZ 07/27/2024 Thank you for referring SHAD BERGER to [facility]. Legally authenticated by SHON OSORIO 2024-07-27 12:44:00 ORDER 1400: FLUORO LESS THAN 1 HR (LOINC: 49846-6) ORDER DATE: July 28, 2024 12:51:00 PM [facility] PERFORMING LAB: [address] [id number] Final Result Date: July 28, 2024 12:57:38 [place] [address] Name: SHAD BERGER Exam Date: 07/28/2024 : 1975 Age 49 years Gender: F Physician: HARVEY LARSON Facility: [facility] Facility HSV: Inpatient Exam: FLUORO LESS THAN 1 HR Intraoperative fluoroscopy Fluoroscopy time 34 seconds, one image obtained, total dose 32 mGy. Electronically signed by: Praveen Bella MD 08/04/2024 04:00 PM EDT RP Dictated By: Praveen Bella Transcribed By: Transcribed On: 07/28/2024 8:57 AM Electronically signed by: Praveen Bella 07/28/2024 Thank you for referring SHAD BERGER to [facility]. Legally authenticated by SYED OLIVEIRA 2024-07-28 08:57:38 PATHOLOGY NARRATIVE RESULTS Information is not available MICROBIOLOGY RESULTS No Micro Labs/Results Exist for Patient BLOOD ADMIN RESULTS Information is not available TREATMENT PLAN DISCHARGE MEDICATIONS Status RXNORM Medication Dose Route Frequency Dates Comments U pdated By [facility] [id number] Farxiga Oral Tablet 5 MG 5 MG ORAL ONCE DAILY Prescri bed: July 28, 2024 4:49:06 PM [facility] [id number] on July 28, 2024 4:49:06 PM [facility] Continued 232533 Levothyroxine Sodium Oral Capsule 75 MCG 75 MCG ORAL ONCE DAILY Prescri bed: July 28, 2024 4:49:06 PM [facility] [id number] on July 28, 2024 4:49:06 PM [facility] Continued 534290 Metoprolol Succinate ER Oral Tablet Extended Release 24 Hour 100 MG 100 MG ORAL ONCE DAILY Prescri bed: July 28, 2024 4:49:06 PM [facility] [id number] on July 28, 2024 4:49:06 PM [facility] Continued 474042 Rosuvastatin Calcium Oral Tablet 5 MG 5 MG ORAL AT BEDTIME Prescri bed: July 28, 2024 4:49:06 PM [facility] [id number] on July 28, 2024 4:49:06 PM [facility] Continued 098731 Sertraline HCl Oral Tablet 100 MG 200 MG ORAL ONCE DAILY Prescri bed: July 28, 2024 4:49:06 PM [facility] [id number] on July 28, 2024 4:49:06 PM [facility] Continued 354206 ALPRAZolam ER Oral Tablet Extended Release 24 Hour 0.5 MG 0.5 MG ORAL TWICE A DAY NEEDED Prescri bed: July 28, 2024 4:49:06 PM [facility] [id number] on July 28, 2024 4:49:06 PM [facility] Continued 249947 Bactrim DS Oral Tablet 800-160 MG 1 TAB ORAL TWICE A DAY Prescri bed: July 28, 2024 12:40:4 3 PM [facility] [id number] on July 28, 2024 12:40:43 PM [facility] Continued 849187 traMADol HCl Oral Tablet 50 MG 1 TAB ORAL EVERY SIX HOURS NEEDED Prescri bed: July 28, 2024 12:40:4 3 PM [facility] [id number] on July 28, 2024 12:40:43 PM [facility] PATIENT OPEN ORDERS Code System Description Frequency Occurrences Priority Start Date Ordering Physician Updated By Patient open order informati on is not available. SCHEDULED PROCEDURES Code System Description Status Scheduled Date Upd ated By Patient scheduled procedure information is not available. HOSPITAL COURSE HOSPITAL COURSE Note Title Discharge Summary Date Of Service July 28, 2024 4:50: 11 PM [facility] Created By [id number] on July 28, 2024 4:50:11 PM [facility] Signed By [id number] on July 29, 2024 7:01:15 PM [facility] She underwent successful ure teroscopy, lithotripsy and stent placement with Dr Harvey Lewis. Following surgery, she tolerates oral intake, made urine and is appropriate for discharge, per Dr Lewis. MEDICATIONS HOME MEDICATIONS Status RXNORM [facility] Medication Dose Route Frequency Dates Comments Reported By Updated By Active [id number] 66373 11905 1 Rosuvastatin Calcium Oral Tablet 5 MG 5.0 MG ORAL BEDTIME Last Dose: July 28, 2024 1:00:0 0 AM [facility] RXBOT [id number] on July 28, 2024 10:36:53 AM [facility] Active 1832381 79555 69691 0 Farxiga Oral Tablet 5 MG 5.0 MG ORAL DAILY Last Dose: July 28, 2024 1:00:0 0 AM [facility] RXBOT [id number] on July 28, 2024 10:36:09 AM [facility] Active 739756 94250 36689 6 ALPRAZolam ER Oral Tablet Extended Release 24 Hour 0.5 MG 0.5 MG ORAL BIDPRN Last Dose: July 21, 2024 1:00:0 0 AM [facility] RXBOT [id number] on July 28, 2024 10:35:58 AM [facility] Active 818210 22096 89510 7 Metoprolol Succinate ER Oral Tablet Extended Release 24 Hour 100 MG 100.0 MG ORAL DAILY Last Dose: July 27, 2024 10:00: 00 AM [facility] RXBOT [id number] on July 28, 2024 10:33:54 AM [facility] Active 650402 31486 26601 4 Levothyroxin e Sodium Oral Capsule 75 MCG 75.0 MCG ORAL DAILY Last Dose: July 27, 2024 10:00: 00 AM [facility] RXBOT [id number] on July 28, 2024 10:36:27 AM [facility] Active 233558 40984 06326 5 Sertraline HCl Oral Tablet 100 MG 200.0 MG ORAL DAILY Last Dose: July 27, 2024 10:00: 00 AM [facility] RXBOT [id number] on July 28, 2024 10:37:01 AM [facility] DISCHARGE MEDICATIONS Status [facility] Medication Dose Route Frequency Dates Comments Physician Updated By Continue d [id number] 4599 0620 530 Farxiga Oral Tablet 5 MG 5.0 MG ORAL ONCE DAILY Prescr ibed: July 28, 2024 4:49:0 6 PM UTC KRUEGER AUREA A PA [id number] on July 28, 2024 4:49:06 PM UTC Continue d 999216 3526 7002 004 Levothyroxi ne Sodium Oral Capsule 75 MCG 75.0 MCG ORAL ONCE DAILY Prescr ibed: July 28, 2024 4:49:0 6 PM UTC KRUEGER AUREA A PA [id number] on July 28, 2024 4:49:06 PM UTC Continue d 990261 2486 8459 777 Metoprolol Succinate ER Oral Tablet Extended Release 24 Hour 100 MG 100.0 MG ORAL ONCE DAILY Prescr ibed: July 28, 2024 4:49:0 6 PM UTC KRUEGER AUREA A PA [id number] on July 28, 2024 4:49:06 PM UTC Continue d 619426 4155 5058 281 Rosuvastati n Calcium Oral Tablet 5 MG 5.0 MG ORAL AT BEDTIME Prescr ibed: July 28, 2024 4:49:0 6 PM UTC KRUEGER AUREA A PA [id number] on July 28, 2024 4:49:06 PM UTC Continue d 447297 1618 2001 305 Sertraline HCl Oral Tablet 100 MG 200.0 MG ORAL ONCE DAILY Prescr ibed: July 28, 2024 4:49:0 6 PM UTC KRUEGER AUREA A PA [id number] on July 28, 2024 4:49:06 PM UTC Continue d 174126 3726 8308 306 ALPRAZolam ER Oral Tablet Extended Release 24 Hour 0.5 MG 0.5 MG ORAL TWICE A DAY NEEDED Prescr ibed: July 28, 2024 4:49:0 6 PM UTC KRUEGER AUREA A PA [id number] on July 28, 2024 4:49:06 PM UTC Continue d 233786 7397 8014 601 Bactrim DS Oral Tablet 800-160 MG 1.0 TAB ORAL TWICE A DAY Prescr ibed: July 28, 2024 12:40: 43 PM UTC ART HARVEY S PHY [id number] on July 28, 2024 12:40:43 PM UTC Continue d 440671 8989 4037 708 traMADol HCl Oral Tablet 50 MG 1.0 TAB ORAL EVERY SIX HOURS NEEDED Prescr ibed: July 28, 2024 12:40: 43 PM UT ART HARVEY MCKEE [id number] on July 28, 2024 12:40:43 PM UT INPATIENT MEDICATIONS Status RXNORM [facility] Medication Dose Route Frequency Rat e Quantity Dates Comments Physician Updated By Elsie inued 3624 3421 845 NOZIN NASAL SOLAR THERMAL INSTALLER POPSWAB SWAB 1.0 EA NASAL TWICE A DAY Start: July 27, 2024 1:00:0 0 PM UTC End: July 28, 2024 4:49:0 6 PM UT HECTOR NAVA [id number] on July 28, 2024 5:53:00 PM UT Discont inued 2754 4730 546 sodium chloride 0.9% FLUSH 10 ML SOLN 10.0 ML INTRAV ENOUS NEEDED Start: July 27, 2024 6:47:0 0 AM UTC End: July 28, 2024 4:49:0 6 PM UT HECTOR NAVA [id number] on July 28, 2024 5:53:00 PM UT Discont inued 815769 0385 8015 704 LACTATED RINGERS SOLN 1000. 0 ML INTRAV ENOUS CONT 100.0 ML/HR Start: July 27, 2024 6:47:0 0 AM UTC End: July 28, 2024 4:49:0 6 PM UT HECTOR NAVA [id number] on July 28, 2024 5:53:00 PM UT Discont inued [id number] 6038 5613 000 ondansetron (ZOFRAN) INJ 4 MG/2 ML SOLN 4.0 MG INTRAV ENOUS EVERY SIX HOURS NEEDED Start: July 27, 2024 6:47:0 0 AM UTC End: July 28, 2024 4:49:0 6 PM [facility] HECTOR NAVA [id number] on July 28, 2024 5:53:00 PM UT Discont inued [id number] promethazin e (PHENERGAN) 25 MG/ML SOLN 12.5 MG INTRAV ENOUS EVERY SIX HOURS NEEDED Start: July 27, 2024 6:47:0 0 AM UTC End: July 28, 2024 4:49:0 6 PM [facility] HECTOR NAVA [id number] on July 28, 2024 5:53:00 PM UTC Discont inued [id number] 501 ketorolac (TORADOL) 30 MG/ML SOLN 15.0 MG INTRAV ENOUS EVERY SIX HOURS NEEDED Start: July 27, 2024 6:47:0 0 AM UTC End: July 28, 2024 4:49:0 6 PM UTC HECTOR NAVA [id number] on July 28, 2024 5:53:00 PM UTC Discont inued [id number] 198 MIRALAX PACKET 17 GM PACK 17.0 GM ORAL ONCE DAILY NEEDED Start: July 27, 2024 6:47:0 0 AM UTC End: July 28, 2024 4:49:0 6 PM UT HECTOR NAVA [id number] on July 28, 2024 5:53:00 PM UTC Discont inued [id number] 101 morphine sulfate (PF) 4 MG/ML SOLN 4.0 MG INTRAV ENOUS EVERY FOUR HOURS NEEDED Start: July 27, 2024 6:47:0 0 AM UTC End: July 28, 2024 4:49:0 6 PM UTC HECTOR NAVA [id number] on July 28, 2024 5:53:00 PM UTC Discont inued [id number] 401 HYDROmorpho ne (DILAUDID) 0.5 MG/0.5ML SOLN 0.5 MG INTRAV ENOUS EVERY THREE HOURS NEEDED Start: July 27, 2024 6:47:0 0 AM UTC End: July 28, 2024 4:49:0 6 PM UT HECTOR NAVA [id number] on July 28, 2024 5:53:00 PM UTC Discont inued Free Text Med Metoprolol Succinate ER Oral Tablet Extended Release 24 Hour 100 MG 100.0 MG ORAL ONCE DAILY Start: July 27, 2024 1:00:0 0 PM UTC End: July 27, 2024 1:00:0 0 PM UT HECTOR UREÑA on July 27, 2024 7:18:00 AM UTC Discont inued Free Text Med Rosuvastati n Calcium Oral Tablet 5 MG 5.0 MG ORAL AT BEDTIME Start: July 28, 2024 1:00:0 0 AM UTC End: July 28, 2024 1:00:0 0 AM UTC HECTOR UREÑA on July 27, 2024 7:20:00 AM UTC Discont inued Free Text Med Sertraline HCl Oral Tablet 100 MG 200.0 MG ORAL ONCE DAILY Start: July 27, 2024 1:00:0 0 PM UTC End: July 27, 2024 1:00:0 0 PM UTC HECTOR UREÑA on July 27, 2024 7:19:00 AM UTC Discont inued Free Text Med Levothyroxi ne Sodium Oral Capsule 75 MCG 75.0 MCG ORAL ONCE DAILY Start: July 27, 2024 1:00:0 0 PM UTC End: July 27, 2024 1:00:0 0 PM UT HECTOR UREÑA on July 27, 2024 7:18:00 AM UTC Discont inued [id number] 0287 1518 292 levothyroxi ne (SYNTHROID) 75 MCG TABS 75.0 MCG ORAL ONCE DAILY Start: July 27, 2024 1:00:0 0 PM UTC End: July 28, 2024 4:49:0 6 PM UT HECTOR NAVA [id number] on July 28, 2024 5:53:00 PM UTC Discont inued [id number] [id number] 020 metoprolol succin (TOPROL XL) 50 MG TB24 100.0 MG ORAL ONCE DAILY Start: July 27, 2024 1:00:0 0 PM UTC End: July 28, 2024 4:49:0 6 PM UT HECTOR NAVA [id number] on July 28, 2024 5:53:00 PM UTC Discont inued [id number] 9287 7024 211 sertraline (ZOLOFT) 50 MG TABS 200.0 MG ORAL ONCE DAILY Start: July 27, 2024 1:00:0 0 PM UTC End: July 28, 2024 4:49:0 6 PM UT HECTOR NAVA [id number] on July 28, 2024 5:53:00 PM UTC Discont inued [id number] 9203 1012 190 atorvastati n (LIPITOR) 10 MG TABS 10.0 MG ORAL AT BEDTIME Start: July 28, 2024 1:00:0 0 AM UTC End: July 28, 2024 4:49:0 6 PM UT HECTOR NAVA [id number] on July 28, 2024 5:53:00 PM UTC Discont inued [id number] 2491 9301 305 lidocaine (XYLOCAINE) 2% UROJET GEL 10.0 ML ONE TIME ONLY (SCHEDULED DOSE) Start: July 28, 2024 11:03: 00 AM UT End: July 28, 2024 11:03: 00 AM UT MARSHA Balderas INTERFAC ED on July 28, 2024 11:02:00 AM UTC Discont inued [id number] 0014 3914 025 ceFAZolin (ANCEF) 3 GM SOLR 3.0 GM INTRAV ENOUS ONE TIME ONLY (SCHEDULED DOSE) 200.0 ML/HR Start: July 28, 2024 11:19: 00 AM UT End: July 28, 2024 11:28: 34 AM [facility] ARIAN HARVEY Jaramillo [id number] on July 28, 2024 11:28:00 AM UTC Discont inued [id number] 5232 9710 167 sodium chloride 0.9% SOLN 100.0 ML INTRAV ENOUS ONE TIME ONLY (SCHEDULED DOSE) 200.0 ML/HR Start: July 28, 2024 11:19: 00 AM UTC End: July 28, 2024 11:28: 34 AM [facility] ARIAN HARVEY Jaramillo [id number] on July 28, 2024 11:28:00 AM UTC Discont inued [id number] 332 PACU - fentaNYL (SUBLIMAZE) 100 MCG/2ML SOLN 100.0 MCG INTRAV ENOUS ONE TIME ONLY (SCHEDULED DOSE) Start: July 28, 2024 11:31: 00 AM UTC End: July 28, 2024 11:31: 00 AM [facility] MARSHA Balderas INTERFAC ED on July 28, 2024 11:31:00 AM UTC Discont inued [id number] 4458 9020 901 PROPOFOL 200 MG/20ML EMUL 200.0 MG INTRAV ENOUS ONE TIME ONLY (SCHEDULED DOSE) 8.333 MG/HR Start: July 28, 2024 2:27:0 0 PM UT End: July 28, 2024 2:27:5 5 PM UT MARSHA Balderas [id number] on July 28, 2024 2:28:00 PM UTC Discont inued [id number] 8774 3016 505 DEXAMETHASO NE SODIUM PHOSPHATE 20.0 MG INTRAV ENOUS ONE TIME ONLY (SCHEDULED DOSE) 0.833 MG/HR Start: July 28, 2024 2:27:0 0 PM UTC End: July 28, 2024 2:27:5 5 PM UTC MARSHA Balderas [id number] on July 28, 2024 2:28:00 PM UTC Discont inued [id number] 8344 9379 501 KETOROLAC TROMETHAMIN E 30 MG/M 30.0 MG ONE TIME ONLY (SCHEDULED DOSE) 1.25 MG/HR Start: July 28, 2024 2:27:0 0 PM UTC End: July 28, 2024 2:27:5 5 PM UTC MARSHA Balderas [id number] on July 28, 2024 2:28:00 PM UTC Discont inued [id number] 0163 5613 000 ONDANSETRON HCL 4 MG/2ML SOLN 4.0 MG INTRAV ENOUS ONE TIME ONLY (SCHEDULED DOSE) 0.167 MG/HR Start: July 28, 2024 2:27:0 0 PM UTC End: July 28, 2024 2:27:5 5 PM UTC MARSHA Balderas [id number] on July 28, 2024 2:28:00 PM UTC Discont inued [id number] 8441 9428 202 LIDOCAINE HCL (PF) 2 % SOLN 10.0 ML ONE TIME ONLY (SCHEDULED DOSE) Start: July 28, 2024 2:27:0 0 PM UTC End: July 28, 2024 2:27:5 5 PM UTC MARSHA Bladeras [id number] on July 28, 2024 2:28:00 PM UTC Discont inued [id number] 8977 8011 704 LACTATED RINGERS SOLN 1000. 0 ML IV CONTIN UOUS ONE TIME ONLY (SCHEDULED DOSE) 41.667 ML/HR Start: July 28, 2024 2:27:0 0 PM UTC End: July 28, 2024 2:27:5 6 PM UTC MARSHA Balderas [id number] on July 28, 2024 2:28:00 PM UTC Discont inued [id number] 3258 8203 110 ALPRAZolam (XANAX) 1 MG TABS 1.0 MG ORAL EVERY EIGHT HOURS NEEDED Start: July 28, 2024 4:38:0 0 PM UTC End: July 28, 2024 4:49:0 6 PM UTC EVANS Brunner [id number] on July 28, 2024 5:53:00 PM UTC SOCIAL HISTORY SOCIAL HISTORY SNOMED-CT Social History Element Description Effective Dates Offered Cessation Comment UpdatedBy [id number] Historical Tobacco smoking status Current Every Day Smoker [id number] on September 22, 2023 7:35:55 PM UTC SOCIAL HISTORY - Gender Sex: Female SOCIAL HISTORY - Status : status i nformation is not available Intention in Next Year: intention information is not available SOCIAL HISTORY - Sexual Behavior Sexual Orientation Gender Identity SNOMED-CT Description SNO MED -CT Description Activity Level No of Partners Partner Type UpdatedBy Information is not available VITAL SIGNS PATIENT VITAL SIGNS This section displays the mo st recent value for each vital sign as of August 09, 2024 2:22:39 PM UTC Loinc Code Vital Sign [place] [address]-9 Blood glucose monitors July 28, 2024 4:45:00 PM UTC 115.0 mg/dL [id number] on July 28, 2024 4:46:38 PM UTC 8302-2 Body height July 28, 2024 10:33:32 AM UTC 172.72 cm (68.0 in) [id number] on July 28, 2024 10:33:32 AM UTC 89335-3 Body mass index (BMI ) [Ratio] July 28, 2024 10:33:32 AM UTC 45.287 kg/m2 [id number] on July 28, 2024 10:33:32 AM UTC 3140-1 Body Surface Area Derived From Formula July 28, 2024 10:33:32 AM UTC 2.4209 m2 [id number] on July 28, 2024 10:33:32 AM UTC 8310-5 Body temperature July 28, 2024 10:32:00 AM UTC 97.6 [degF] [id number] on July 28, 2024 10:33:20 AM UTC 12820-6 Body weight Measured July 28 025 10:33:32 AM UTC 135.1 kg (298.0 lb) [id number] on July 28, 2024 10:33:32 AM UTC 8462-4 Diastolic blood pressure July 28, 2024 10:32:00 AM UTC 76.0 mm[Hg] [id number] on July 28, 2024 10:33:20 AM UTC 8867-4 Heart rate July 28, 2024 10:32:00 AM UTC 65 /min [id number] on July 28, 2024 10:33:20 AM UTC 8478-0 Mean blood pressure July 28 7:39:00 AM UTC 107.0 mm[Hg] [id number] on July 28, 2024 8:40:37 AM UTC 50327-9 Oxygen saturation in Arterial blood by Pulse oximetry July 28, 2024 10:32:00 AM UTC 96.0 % [id number] on July 28, 2024 10:33:20 AM UTC 9279-1 Respiratory rate July 28, 2024 10:32:00 AM UTC 18 /min [id number] on July 28, 2024 10:33:20 AM UTC 8480-6 Systolic blood pressure July 28, 2024 10:32:00 AM UTC 131.0 mm[Hg] [id number] on July 28, 2024 10:33:20 AM [facility] PEDIATRIC GROWTH CHART - VITAL SIGNS This section displays Head C ircumference Percentile, Weight for Length Percentile and BMI Percentile Loinc Code Pediatric Measure Age (Months) Result Updat ed By No Pediatric Growth Chart Pe rcentile Information Available. PROCEDURES PATIENT PROCEDURES Procedure information is not available. PROCEDURE NOTE Note Title Operative/Procedure Note Date Of Service July 28, 2024 12:41 :48 PM UTC Created By [id number] on July 28, 2024 12:41:48 PM UTC Signed By [id number] on July 28, 2024 12:46:04 PM UTC Pre-Procedure Diagnosis Kidney stone Post- Procedure Diagnosis Kidney stone Procedure / Surgery None 1. Cystoscopy with left ureteral catheterization (CPT 63100) 2. Left retrograde pyelogram (CPT 03319) 3. Left ureteroscopy with laser lithotripsy and stent placement (CPT 60501) 4. Left ureteroscopy with basket stone extraction (CPT 86202) 5. Fluoroscopy time less than 1 hour with intraoperative interpretation of imaging (CPT 37583) Anesthesia Type General anesthesia Estimated Blood Loss Minimal Complications None Procedure Description / Findings After informed consent was obtained from the patient, she was taken to the operating room she was placed in a comfortable supine position on the procedure table. Time-out was performed confirming correct patient, correct procedure, and correct operative site. General anesthesia was induced, and preoperative IV antibiotics were administered. Placed in dorsal lithotomy position and genitals were prepped and draped in usual sterile fashion. We then inserted the rigid cystoscope into the bladder and visualized left ureteral orifice. This was catheterized with a 5 Scottish open-ended Bishop catheter (CPT 33512). We then injected half-strength contrast in a retrograde fashion to perform left retrograde pyelogram. (CPT 92104). Contrast filled the entire collecting system with obvious filling defect corresponding to the 8 mm stone in the left UPJ. At this time, we then advanced 2 sensor tip guidewires in a retrograde fashion under fluoroscopic guidance (CPT 18093). A 12/14 Scottish ureteral access sheath was then advanced to the proximal left ureter under fluoroscopic guidance. We then introduced the flexible ureteroscope and advanced this into the ureter until we reached the stone. Using a 200 micron fiber we performed laser lithotripsy (CPT 95204). Several stone fragments were pushed up into the renal pelvis into an upper pole calyx. Once the stone was broken into numerous smaller fragments, we withdrew the ureteroscope in the laser fiber. We then reinserted the flexible ureteroscope along with the ZeroTip Nitinol basket and subsequently removed all significant fragments which were then passed off the field and sent for analysis (CPT 96403). Once all fragments were removed, we slowly withdrew the ureteroscope down the full length of the left ureter with no signs of ureteral injury or additional stone fragments. We then reinserted the rigid cystoscope and advanced a 6 Scottish by 24 cm double- J ureteral stent over our remaining guidewire under fluoroscopic guidance. We slowly withdrew the wire and visualized the proximal coil in the left renal pelvis under fluoro with the distal coil directly visualized in the bladder lumen. The bladder was drained through the cystoscope sheath and viscous lidocaine 2% gel was instilled in urethra. The procedure was terminated, the patient was awoken and transferred to the PACU in stable condition. Specimens Left ureteral stone fragments Tubes/Drains None Implants Left ureteral stent Disposition of Patient Stable to PACU Electronically signed by ARIAN MCKEE on 9737 HEALTH CONCERNS Problems Concern Status Health Concern problem infor mation not available. Smoking Status Status Years Used Consumed packs p er day Health Concern smoking histo ry information not available. Family History Concern Status Health Concern family histor y information not available. ENCOUNTERS ENCOUNTER INFORMATION Reason for Visit KIDNEY STONE Admission July 27, 2024 6:31:[address] [id number] Discharge July 28, 2024 5:57:00 PM UTC DI SCHARGED TO HOME OR SELF CARE ENCOUNTER DIAGNOSES Note Title Discharge Summary Date Of Service July 28, 2024 4:50: 11 PM UT Created By [id number] on July 28, 2024 4:50:11 PM UT Signed By [id number] on July 29, 2024 7:01:15 PM UT Code System Diagnosis Onset Date [id number] SNOMED-CT Kidney stone ABSTRACT DIAGNOSES Code System Diagnosis Updated By N13.2 ICD10 HYDRONEPHROSIS W ITH RENAL AND URETERAL CALCULOUS OBSTRUCTION [id number] on July 31, 2024 10:22:43 PM UT N13.2 ICD10 HYDRONEPHROSIS W ITH RENAL AND URETERAL CALCULOUS OBSTRUCTION [id number] on July 31, 2024 10:22:43 PM UT Z68.42 ICD10 BODY MASS INDEX [BMI] 45.0-4 9.9, ADULT [id number] on July 31, 2024 10:22:43 PM UT E78.5 ICD10 HYPERLIPIDEMIA, UNSPECIFIED [id number] on July 31, 2024 10:22:43 PM UT F32.A ICD10 DEPRESSION, UNSPECIFIED [id number] on July 31, 2024 10:22:43 PM UT E03.9 ICD10 HYPOTHYROIDISM, UNSPECIFIED [id number] on July 31, 2024 10:22:43 PM UT F41.9 ICD10 ANXIETY DISORDER, UNSPECIFIE D [id number] on July 31, 2024 10:22:43 PM UT Z79.890 ICD10 HORMONE REPLACEMENT THERAPY [id number] on July 31, 2024 10:22:43 PM UT E66.01 ICD10 MORBID (SEVERE) OBESITY DUE TO EXCESS CALORIES [id number] on July 31, 2024 10:22:43 PM UT I11.0 ICD10 HYPERTENSIVE HEA RT DISEASE WITH HEART FAILURE [id number] on July 31, 2024 10:22:43 PM [facility] I50.9 ICD10 HEART FAILURE, UNSPECIFIED F [id number] on July 31, 2024 10:22:43 PM [facility] G47.30 ICD10 SLEEP APNEA, UNSPECIFIED FGE 9811 on July 31, 2024 10:22:43 PM [facility] Z79.899 ICD10 OTHER MCC (CURRENT) DR ALVAREZ THERAPY [id number] on August 09, 2024 2:21:31 PM [facility] CARE TEAM Care Post Hole Digger Role HARVEY LEWIS Surgeon HARVEY LARSON Admitting HARVEY LARSON Primary Attending ROSA RITTER Referring [facility] DISCHARGE INSTRUCTION DISCHARGE INSTRUCTION Encounter [id number] Admit Date July 27, 2024 6:31: 00 AM [facility] Discharge Date July 28, 2024 5:57: 00 PM [facility] PATIENT EDUCATION SUMMARY Patient/Visit Information: Patient Name: SHAD BERGER Diag: Attending Caregiver: MARSHA Balderas Discharge Instruction Sheets Provided: [facility]-Stroke Warning Signs COVID-19 CDC-EN Discharge Information Fall Prevention in Hospitals and in the Home LOCATED WITHIN [facility] Pain and Responsible Opioid (Pain Medication) Management Kidney Stones, Mauw-bm-Hqaj KYNECT- HELP Medication Side Effects Suicide - Managing your Feelings Cystoscopy Dr. Lewis- CYSTOSCOPY WITH HYDRODILITATION Patient Instructions: Followup Appointments/Instructions: HISTORY AND PHYSICAL NOTE HISTORY AND PHYSICAL NOTE Note Title Admission History an d Physical Date Of Service July 27, 2024 7:13: 50 AM [facility] Created By [id number] on July 27, 2024 7:13:50 AM [facility] Signed By [id number] on July 29, 2024 7:01:29 PM [facility] Chief Complaint Left flank pain History of Present Illness Patient is a 49-year-old female who was a transfer from [facility] for kidney stone in the left ureter 8 mm in size. Patient has had associated nausea, vomiting, chills, chest pain, dizziness, and shortness of breath. Patient states she had pain about a month ago and was 1st diagnosed with a kidney stone based on symptoms, then 2 days ago the pain came back and was more intense. Patient was seen yesterday at [facility] felt better and sent home then came back due to worsening pain nausea and vomiting. Patient does not smoke, drink alcohol or use drugs. Patient is a full code. In the ED at [facility] WBC was 11.8, creatine 1.4, GFR 40, urine showed trace blood, no nitrites or leukocytes but 1+ bacteria. We will admit patient for pain and nausea control and a consult with Urology for tomorrow we will keep NPO for possible stent placement tomorrow. Past Medical History Hyperlipidemia Hypothyroidism Chronic depression Anxiety Essential hypertension Past Surgical History Hernia repair Social History alcohol use No Known Use drug use No Known Use marital status sexual behavior Identifies as Female Family History Parents Father Essential hypertension; Heart disease Mother Essential hypertension; Diabetes mellitus Allergies No Known Allergies Home Medications ALPRAZolam ER Oral Tablet Extended Release 24 Hour 0.5 MG Dose: 0.5 MG BY MOUTH TWICE A DAY NEEDED Farxiga Oral Tablet 5 MG Dose: 5 MG BY MOUTH ONCE DAILY Levothyroxine Sodium Oral Capsule 75 MCG Dose: 75 MCG BY MOUTH ONCE DAILY Metoprolol Succinate ER Oral Tablet Extended Release 24 Hour 100 MG Dose: 100 MG BY MOUTH ONCE DAILY Rosuvastatin Calcium Oral Tablet 5 MG Dose: 5 MG BY MOUTH AT BEDTIME Sertraline HCl Oral Tablet 100 MG Dose: 200 MG BY MOUTH ONCE DAILY Review of Systems Narrative All 12 point review of systems were reviewed and are negative except as stated in HPI. Vital Signs 0246 T 97.7 (L) HR 68 RR 16 BP 172 / 84 O2Sat 95 Physical Exam Narrative General: not in distress Cardiovascular: Regular rate and rhythm, no murmurs appreciated. Normal S1 and S2. Pulmonary: Symmetrical expansion, good air entry bilaterally, clear breath sounds bilaterally, no wheezing, crackles or rhonchi. Gastrointestinal: Abdomen good bowel sounds, soft, nontender, no guarding, left CVA tenderness Extremities: No edema, no cyanosis Skin: No rash of generalized distribution, pink, dry, warm Neurological: Awake, alert, and oriented to person, place, and time. Moves all 4 extremities. No focal neurological deficits. Psychiatric: Appropriate mood and affect Procedures and Surgeries None Problem List Kidney stone Assessment/Plan Kidney stone -consult urology -antiemetics ordered p.r.n. -Toradol 15 mg q.6 as 1st line for pain then morphine or Dilaudid as needed for breakthrough pain -NPO except ice chips -CT abdomen pelvis -morning labs ordered -LR 100 mL/hour -kidney stone approximately 8 mm per [facility] Hypertension -monitor vital signs -continue home meds Hyperlipidemia -continue home atorvastatin Hypothyroidism -continue home levothyroxine Depression -continue home sertraline DVT PPX: SCDs Diet: NPO except ice chips Code status: Full I confirmed the patient's advance Care plan is present, code status is documented, or surrogate decision maker is listed in the patient's medical record. I have utilized all available immediate resources to obtain, update, or review the patient's current medications (including all prescriptions, [id number]-wfqlgmp products, herbals, cannabis/cannabidiol products, and vitamin/mineral/dietary nutritional supplements). Active Medications HYDROmorphone (DILAUDID) 0.5 MG/0.5ML 0.5 MG IV PUSH Q3HPRN for SEVERE PAIN 7-10 PAIN SCALE breakthrough pain ketorolac (TORADOL) 30 MG/ML 15 MG IV PUSH Q6HPRN for MODERATE PAIN 4-6 PAIN SCALE, SEVERE PAIN 7-10 PAIN SCALE use 1st for pain LACTATED RINGERS 1000 ML IV Continuous 100 ML/HR Levothyroxine Sodium Oral Capsule 75 MCG 75 MCG PO DAILY Metoprolol Succinate ER Oral Tablet Extended Release 24 Hour 100 MG 100 MG PO DAILY MIRALAX PACKET 17 GM PO DAILYPRN for CONSTIPATION morphine sulfate (PF) 4 MG/ML 4 MG IV PUSH Q4HPRN for MODERATE PAIN 4-6 PAIN SCALE, SEVERE PAIN 7-10 PAIN SCALE NOZIN NASAL SOLAR 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 INSTALLER POPSWAB 1 EA NASAL BID APPLY TO EACH NOSTRIL ondansetron (ZOFRAN) INJ 4 MG/2 ML 4 MG IV PUSH Q6HPRN for NAUSEA VOMITING promethazine (PHENERGAN) 25 MG/ML 12.5 MG IV PUSH Q6HPRN for NAUSEA VOMITING IF REFRACTORY TO ZOFRAN Rosuvastatin Calcium Oral Tablet 5 MG 5 MG PO BEDTIME Sertraline HCl Oral Tablet 100 MG 200 MG PO DAILY sodium chloride 0.9% FLUSH 10 ML IV PUSH PRN for FLUSH IV LINE Current Code Status of Patient Full Code Time spent with Patient 30 minutes Electronically signed by HECTOR MELCHOR on 5361 I hereby attest the note that was written on this patient accurately reflects the notations made when patient was examined. Electronically signed by MARSHA MCKEE on 1501 CONSULTATION NOTE CONSULTATION NOTE Note Title Consult History and Physical Date Of Service July 27, 2024 11:48 :49 AM [facility] Created By [id number] on July 27, 2024 11:48:49 AM [facility] Signed By [id number] on July 27, 2024 11:51:14 AM [facility] Chief Complaint Left flank pain History of Present Illness Patient is a 49-year-old female with no prior stone history, received as a transfer from [facility] for ongoing left flank pain. She began experiencing pain 3 days ago at which time her initial visit to the ER a CT scan showing an 8 mm obstructing left ureteral stone. She denies any associated symptoms of fever and chills. She denies gross hematuria or dysuria. 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 THERMAL INSTALLER POPSWAB 1 EA NASAL BID APPLY TO EACH NOSTRIL metoprolol succin (TOPROL XL) 100 MG PO DAILY levothyroxine (SYNTHROID) 75 MCG PO DAILY sodium chloride 0.9% FLUSH 10 ML IV PUSH PRN for FLUSH IV LINE promethazine (PHENERGAN) 25 MG/ML 12.5 MG IV PUSH Q6HPRN for NAUSEA VOMITING IF REFRACTORY TO ZOFRAN ondansetron (ZOFRAN) INJ 4 MG/2 ML 4 MG IV PUSH Q6HPRN for NAUSEA VOMITING morphine sulfate (PF) 4 MG/ML 4 MG IV PUSH Q4HPRN for MODERATE PAIN 4-6 PAIN SCALE, SEVERE PAIN 7-10 PAIN SCALE MIRALAX PACKET 17 GM PO DAILYPRN for CONSTIPATION LACTATED RINGERS 1000 ML IV Continuous 100 ML/HR ketorolac (TORADOL) 30 MG/ML 15 MG IV PUSH Q6HPRN for MODERATE PAIN 4-6 PAIN SCALE, SEVERE use 1st for painCALE HYDROmorphone (DILAUDID) 0.5 MG/0.5ML 0.5 MG IV PUSH Q3HPRN for SEVERE PAIN 7-10 PAIN SCALE breakthrough pain Review of Systems Constitutional Negative For: Fever Flank pain Vital Signs 0738 T 96.6 (L) HR 64 RR 18 BP 116 / 64 O2Sat 94 0246 T 97.7 (L) HR 68 RR 16 BP 172 / 84 O2Sat 95 Physical Exam General Normal appearance, Awake, Alert, Oriented to person, Oriented to place, Oriented to time Abdomen Abdomen soft Left Flank pain Lab Results 05 AYAN NA 138 K 3.9 CHLORIDE 104 CO2 27.1 AGAP 10.8 GLUC 97 BUN 18 CREAT 1.3 GFR 50 (L) OSMO CHLOE 289 CALCIUM 8.3 (L) MG 1.8 0528 HEM WBC 10.3 RBCS 4.1 (L) HGB 9.1 (L) HCT 30.7 (L) MCV 74.7 (L) MCH 22.1 (L) MCHC 29.6 (L) RDW 15.8 (H) PLT S 208 MPV 11.2 (H) NEUT% 74.7 (H) LYMPH% 16.4 (L) MONO% 5.5 EOS% 2.6 BASO% 0.4 IG% 0.4 NRBC% 0.0 NEUT# 7.7 (H) LYMPH# 1.7 MONO# 0.6 EOS# 0.3 (H) BASO# 0.0 IG# 0.04 NRBC# 0.00 MANDIFF? No Procedures and Surgeries None Assessment/Plan Left hydronephrosis/flank pain due to 8 mm left ureteral stone Unfortunately, there was no imaging to review, only report. We will plan to keep the patient NPO and I will try to add her to the schedule today for left ureteroscopy, laser lithotripsy, and stent placement. I reviewed the procedure in depth as well as risks of bleeding, infection, injury to the tract, need for additional procedures, and the risk of anesthesia. I explained the temporary nature of the ureteral stent. Failure to remove when indicated could result in infection, urosepsis, stent encrustation, kidney injury, loss of kidney, and even . Patient verbalized his understanding and is agreeable with this plan. Electronically signed by ARIAN MCKEE on 0759 DISCHARGE SUMMARY NOTE PROGRESS NOTE PROGRESS NOTE Note Title Progress Quick Note Date Of Service July 27, 2024 2:22: 48 PM UTC Created By [id number] on July 27, 2024 2:22:48 PM UTC Signed By [id number] on July 29, 2024 7:01:24 PM UTC Patient seen and examined at the bedside. After discussion with Dr. Lewis, the plan is for ureteroscopy and lithotripsy tomorrow. We will start her on regular diet and make her NPO after midnight. Continue IV fluids and Electronically signed by EVANS GU on 1023 I hereby attest the note that was written on this patient accurately reflects the notations made when patient was examined. 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 Role on Team Status Start Date End Date Update d By ARIAN MCKEE Surgeon normal July 28 6:31:00 AM UTC July 28, 2024 5:57:00 PM UTC [id number] on July 31, 2024 10:23:26 PM UTC STONE Seo PCP normal July 28 12:48:31 AM UTC July 27, 2024 4:00:00 AM UTC [id number] on July 31, 2024 10:23:26 PM UTC STONE Seo Referring normal July 28 12:48:31 AM UTC July 27, 2024 4:00:00 AM UTC [id number] on July 31, 2024 10:23:26 PM UTC NO DEFINED PRIMARY C PCP normal July 27, 2024 1:34:53 AM UTC July 28, 2024 12:48:31 AM UTC [id number] on July 31, 2024 10:23:26 PM UTC NO DEFINED PRIMARY C Referring normal July 27, 2024 1:34:53 AM UTC July 28, 2024 12:48:31 AM UTC [id number] on July 31, 2024 10:23:26 PM UTC MARSHA MCKEE Attending normal July 27, 2024 1:34:52 AM UTC July 27, 2024 4:00:00 AM UTC [email or web address] on July 31, 2024 10:23:26 PM UTC MARSHA MCKEE Admitting normal July 27, 2024 1:34:52 AM UTC July 27, 2024 4:00:00 AM [facility] [id number] on July 31, 2024 10:23:26 PM [facility]
--- OUTSIDE RECORDS SUMMARY | 2024-08-18 10:48 | XMS_ITS | Continuity of Care Document ---
Author Organization [facility] Phone Care Team Providers Care Manager Of Applications Development Name Role Phone KACY DON Clint Admitting KACY DON Clint Primary Attending ROSA RITTER Primary Care Unavailable ALLERGIES AND ADVERSE REACTIONS ALLERGIES AND ADVERSE REACTIONS Code System Allergy Substance Adverse Reaction Date Reaction (Severity) Comment Status Reported By Updated By No Known Allergies [id number] on July 27, 2024 7:10:00 AM [facility] FAMILY HISTORY RELATION: Father Status: Cause of : Unknown Age at : Unknown SNOMED-CT Diagnosis Age At Onset 39612120 Essential hypertension 22933199 Heart disease RELATION: Mother Status: Cause of : Unknown Age at : Unknown SNOMED-CT Diagnosis Age At Onset 34102915 Essential hypertension 10718886 Diabetes mellitus RESULTS Patient: CELINE KULKARNI Date of : [birth year] 4 LABORATORY RESULTS ORDER 200: URIC ACID (LOINC: 03415-6) ORDER DATE: August 03, 2024 2:56:00 PM UT Specimen Source: PLASMA Specimen Type: Plasma specim en PERFORMING LAB: [address] [id number] Result Comment: Final Result Date: August 03, 2024 4:11:00 PM UT (TECH: Precog) LOINC TEST [place] [address]-1 Urate [Mass or Moles/volume] in Serum or Plasma N 4.2 mg/dL 2.6 mg/dL - 6.0 mg/dL August 03, 2024 4:11:00 PM UT (TECH: KAC) ORDER 300: CALCIUM TOTAL (LO INC: 91280-0) ORDER DATE: August 03, 2024 2:56:00 PM UT Specimen Source: PLASMA Specimen Type: Plasma specim en PERFORMING LAB: [address] [id number] Result Comment: Final Result Date: August 03, 2024 3:46:00 PM UTC (TECH: KAC) LOINC TEST [place] [address]-3 Calcium [Mass/volume] in Serum or Plasma N 8.6 mg/dl 8.5 mg/dl - 10.5 mg/dl August 03, 2024 3:46:00 PM UTC (TECH: KAC) ORDER 400: PTH INTACT (LOINC : 2731-8) ORDER DATE: August 03, 2024 2:56:00 PM UTC Specimen Source: PLASMA Specimen Type: Plasma specim en PERFORMING LAB: [address] [id number] Result Comment: August 04 3:10:00 PM UTC Performed at: [facility] Result Comment: August 04, 2024 3:10:00 PM UTC [address] [place] [id number] Result Comment: August 04, 2024 3:10:00 PM UTC Used Car Make Ready Worker: Sujit Yoo PhD, Phone: [phone] Result Comment: August 04, 2024 3:10:00 PM UTC Final Result Date: August 03, 2024 2:56:00 PM UTC (TECH: LAB) LOINC TEST FLAG RESULT REFERENCE RANGE UPDA GAMA BY 2731-8 Parathyrin.intac t [Mass/volume] in Serum or Plasma N 59 pg/mL 15-65 August 03, 2024 2:56:00 PM UTC (TECH: LAB) ORDER 500: PHOSPHOROUS (LOIN C: 2777-1) ORDER DATE: August 03, 2024 2:56:00 PM UTC Specimen Source: PLASMA Specimen Type: Plasma specim en PERFORMING LAB: [address] [id number] Result Comment: Final Result Date: August 03, 2024 3:46:00 PM UTC (TECH: KAC) LOINC TEST FLAG RESULT REFERENCE RANGE UPDA GAMA BY 2777-1 Phosphate [Mass/volume] in Serum or Plasma N 3.2 mg/dl 2.5 mg/dl - 4.9 mg/dl August 03, 2024 3:46:00 PM UTC (TECH: KAC) LABORATORY NARRATIVE RESULTS Information is not available RADIOLOGY RESULTS Information is not available PATHOLOGY NARRATIVE RESULTS Information is not available MICROBIOLOGY RESULTS No Micro Labs/Results Exist for Patient BLOOD ADMIN RESULTS Information is not available MEDICATIONS HOME MEDICATIONS Status RXNORM NDC Medication Dose Route Frequency Dates Comments Reported By Updated By Drug Treatment Unknown DISCHARGE MEDICATIONS Status RXNORM NDC Medication Dose Route Frequency Dates Comments Physician Updated By No Discharge Medication Info rmation Available INPATIENT MEDICATIONS Status RXNORM NDC Medication Dose Route Frequency Rat e Quantity Dates Comments Physician Updated By No Inpatient Medication Info rmation Available SOCIAL HISTORY SOCIAL HISTORY SNOMED-CT Social History Element Description Effective Dates Offered Cessation Comment UpdatedBy [id number] Historical Tobacco smoking status Current Every Day Smoker [id number] on September 22, 2023 7:35:55 PM [facility] SOCIAL HISTORY - Gender Sex: Female SOCIAL HISTORY - Status : status i nformation is not available Intention in Next Year: intention information is not available SOCIAL HISTORY - Sexual Behavior Sexual Orientation Gender Identity SNOMED-CT Description SNO MED -CT Description Activity Level No of Partners Partner Type UpdatedBy Information is not available HEALTH CONCERNS Problems Concern Status Health Concern problem infor mation not available. Smoking Status Status Years Used Consumed packs p er day Health Concern smoking histo ry information not available. Family History Concern Status Health Concern family histor y information not available. ENCOUNTERS ENCOUNTER INFORMATION Reason for Visit LAB Admission August 03, 2024 2:44:[address] [address] Discharge August 03, 2024 2:44:00 PM [facility] DI SCHARGED TO HOME OR SELF CARE ENCOUNTER DIAGNOSES Notes information is not gumaro ilable. Code System Diagnosis Onset Date Diagnosis information is not available. ABSTRACT DIAGNOSES Code System Diagnosis Updated By N20.1 ICD10 CALCULUS OF URETER [id number] o n August 07, 2024 3:02:15 AM [facility] N20.1 ICD10 CALCULUS OF URETER [id number] o n August 07, 2024 3:02:18 AM [facility] CARE TEAM Care Manager Of Applications Development Role KACY DON Admitting KACY DNO Primary Attending ROSA RITTER Primary Care CARE TEAM CARE optometric technologist Role on Team Status Start Date End Date Update d By STONE Seo PCP normal August 03 4:00:00 AM [facility] August 03, 2024 2:44:00 PM [facility] [id number] on August 03, 2024 2:45:57 PM [facility] ARIAN MCKEE Attending normal August 03 4:00:00 AM [facility] August 03, 2024 2:44:00 PM [facility] [id number] on August 03, 2024 2:45:57 PM [facility] ARIAN MCKEE Admitting normal August 03 4:00:00 AM [facility] August 03, 2024 2:44:00 PM [facility] [id number] on August 03, 2024 2:45:57 PM [facility]
[2024-08-18] MEDS: IRON SUCROSE COMPLEX 200 MG in 0.9 % SODIUM CHLORIDE 100 ML 220 MG IV (11:09)
[2024-08-18 11:10] VITALS: BP 125/69; PULSE 65; RESP 17; O2SAT 97
[2024-08-18] MEDS: SODIUM CHLORIDE 0.9% 50ML BAG 50 ML IV (11:15)
[2024-08-18 11:40] VITALS: BP 119/70; PULSE 60; RESP 16
== END 2024-08-18 11:55 | disposition home or self-care (01) ==
LOC: INF 10:46
PROVIDERS: PCP Nurse Practitioner; Visit Provider Nurse Practitioner
DX: D50.9 Iron deficiency anemia, unspecified (principal)
CPT/HCPCS: 96365; J1756

== ENCOUNTER 2024-08-24 10:50 | Outpatient (CLI) | payer MEDICARE, SELFPAY ==
--- OUTSIDE RECORDS SUMMARY | 2024-08-24 10:53 | XMS_ITS | Data Portability ---
Author Organization [place] [facility] [place] [facility] [place] [facility] ADMIN Address [address] [place] [id number] Care Team Providers Care Supervisor Engines Road Name Role Phone ROSA RITTER Primary Care [...] OV EST 15 2024 10:15A M KACY DON MD Not available Not available Not available Lab PTH (parathyr oid hormone), intact + calcium, serum or plasma 2024 025 [email or web address] [facility], [address], [address], [place], [address], 08/10/2024 13:41:56 uric acid, serum or plasma 2024 025 [email or web address] [facility], [address], [address], [place], [address], 08/10/2024 13:41:57 phosphoru s, serum or plasma 2024 025 [email or web address] [facility], [address], [address], [place], [address], 08/03/2024 11:48:27 CBC w/ auto diff 2023 024 [email or web address] [facility], [address], [address], [place], [address], 10/01/2023 14:03:55 iron + TIBC + ferritin, serum 2023 024 [email or web address] [facility], [address], [address], [place], [address], 10/01/2023 14:03:55 copper, serum or plasma 2023 024 [facility], [address], [address], [place], [address], 10/01/2023 14:03:57 CMP, serum or plasma 2023 024 [email or web address] [facility], [address], [address], [place], [address], 10/01/2023 14:03:55 HbA1c (hemoglob in A1c), blood 2023 024 [email or web address] [facility], [address], [address], [place], [address], 10/01/2023 14:03:55 lipid panel, serum 2023 024 [email or web address] [facility], [address], [address], [place], [address], 10/01/2023 14:03:56 vitamin D, 25-hydrox y, total, serum 2023 024 [email or web address] [facility], [address], [address], [place], [address], 10/01/2023 14:03:56 vitamin A (retinol) , serum 2023 024 [facility], [address], [address], [place], [address], 10/01/2023 14:03:56 vitamin E, serum 2023 024 [email or web address] [facility], [address], [address], [place], [address], 10/01/2023 14:03:56 PTH (parathyr oid hormone), intact, serum or plasma 2023 024 [facility], [address], [address], [place], [address], 10/01/2023 14:03:56 TSH + free T4, serum 2023 024 [email or web address] [facility], [address], [address], [place], [address], 10/01/2023 14:03:56 folate, serum 2023 024 [email or web address] [facility], [address], [address], [place], [address], 10/01/2023 14:03:56 methylmal hang, QN, serum or plasma 2023 024 [facility], [address], [address], [place], [address], 10/01/2023 14:03:57 thiamine, QN, blood 2023 024 [email or web address] [facility], [address], [address], [place], [address], 10/01/2023 14:03:57 Referral None recorded. Procedures None recorded. Surgeries esophagog astroduod enoscopy (SURG) 2023 024 [email or web address] Taty Richards MD, [address], [address], [place], [address], 01/04/2024 13:17:44 Imaging US, renal [address] (Centralized Scheduling), [address], [place], [address], 08/03/2024 10:23:14 XR, kidney + ureter + bladder [address] (Centralized Scheduling), [address] , [place], [address], 08/03/2024 10:23:14 XR, chest, 2 view 2023 024 [email or web address] [facility] (Centralized Scheduling), [address], [place], [address], 10/01/2023 14:03:28 electroca rdiogram, routine ECG, 12 leads min 2023 024 [email or web address] Not available 10/01/2023 13:49:45 Medication Orders None recorded. Patient Targets Encounter Date Encounter Id Patient Goals Patient Target Last Modified By Organization Details Last Modified Time 1. Start keeping food records2. Decrease eating out to 2-3 times a week3. Drink 64 oz fluid/day, decrease OJ to 4oz4. Physical activity 3 times a week for 15 minutes5. Review manual for meal and snack ideas Not available 09/07/2023 16:35:30 Patient InstructionsNo instructions recorded. Reason for Referral None Reported. Results Created Date Observation Date Name Description Value Unit Range Abnormal Flag Note LastModifiedBy Organization Detail LastModifiedTime 08/04/1908/03/2024 CALCI UM TOTAL calcium 8.6 mg/dL 8.5-10 .5 Not Available [facility] ([facility]) [address] [facility] [address], [place], [address], 08/03/2024 11:48:26 08/04/19 25 08/03/2024 PHOSP HOROU S phosphorus 3.2 mg/dL 2.5-4. 9 Not Available [facility] ([facility]) [address] [facility] [address], [place], [address], 08/03/2024 11:48:27 08/04/19 25 08/03/2024 URIC ACID uric acid 4.2 mg/dL 2.6-6. 0 Not Available [facility] ([facility]) [address] [facility] [address], [place], [address], 08/03/2024 12:13:16 08/04/19 25 08/04/2024 PTH, INTAC T PTH, intact 59 pg/mL 15-65 Perfo rmed at: - [facility] [address] [address] Lab Direc tor: Cristian sloan PhD, Phone : [phone] Not Available [facility] ([facility]) [address] [facility] [address], [place], [address], 08/04/2024 11:13:13 04/07/25/2024 CT, abdom en + pelvi s, w/o contr ast No observ ation record ed. [facility] (Med Record) [address], [place], [address], 07/27/2024 09:03:28 Result Notes None recorded. Problems Name Problem SNOMED Code Status Onset Date Resolution Date Notes Provider Name and Address Organization Details Recorded Time Ureteric stone 65020247 Active 2024 KACY DON MD [address], [place], [address] , [place] - [facility] & [place] 5 10:22:34 Essential hypertension 29827826 Active [address], [place], [address] , [place] - [facility] & [place] 4 09:01:10 Dyslipidemia 674809343 Active [address], [place], [address] , [place] - [facility] & [place] 4 09:03:02 Iron deficiency 13040692 Active [address], [place], [address] , [place] - [facility] & [place] 4 09:03:05 Hyperparathyr oidism 22263452 Active [address], [place], [address] , [place] - [facility] & [place] 4 09:03:12 Obesity 547802849 Active [address], [place], [address] , [place] [facility] & [place] 4 09:03:25 Disorder of function of stomach 380604814 Active [address], [place], [address] , [facility] & [place] 4 14:08:55 Obstructive sleep apnea syndrome 77865558 Active 2023 [address], [place], [address] , [facility] & [place] 4 14:09:55 Problem Notes None recorded. Procedures Surgical History Date Name Laterality Status Provider Name and Address Organization Details Recorded Time Cystoscopy-Fem krissy completed KACY DON MD [address], [place], [address], [facility] & [place] 08/03/2024 10:23:31 biopsy of breast completed Giovanna Birmingham [facility] & [place] 09/07/2023 11:16:50 extraction of wisdom tooth completed Giovanna Birmingham [facility] & [place] 09/07/2023 11:16:57 hernia repair completed RICCARDO Bhandari [address], [place], [address], [facility] & [place] 09/07/2023 14:09:37 Imaging Results Imaging Date Name Status LastModified by Organiz ation Details LastModified Time 07/25/2024 CT, abdomen + pelvis, w/o contrast completed [facility] (Med Record) [address], [place], [address], 07/27/2024 09:03:28 Procedure Notes None recorded. Medical [...] Updated DateTime 4 172.72 cm 49.5 kg/m2 688677. 32 g 98.3 [degF] 60 /min 166 mm[Hg] 85 mm[Hg] Kasie Ada [place] - [facility] & [place] 4 13:48:51 Date Recorded Body height Body mass index (BMI) Body weight Oxygen saturation Oxygen saturation in Arterial blood by Pulse oximetry Heart rate Systolic blood pressure Diastolic blood pressure Provider Name and Address Organization Details Last Updated DateTime 5 172.72 cm 44.7 kg/m2 916876. 16 g 97 % 97 % 67 /min 132 mm[Hg] 74 mm[Hg] Deaan Mabry [place] - [facility] & [place] 10:06:27 Social History None recorded. Functional Status Question Answer Note LastModified by Organization D etails LastModified Time What is your level of alcohol consumption? None Information not available 09/07/2023 Mental Status None recorded. Family History Relationship [...] History Condition Response Hyperthyroidism Y Depression Y Anxiety Disorder Y Headaches Y Kidney Disease N Bleeding Disorder N Asthma Y Pulmonary Embolism N Deep Vein Thrombosis N High Cholesterol Y Liver Disease N Anemia Y Diabetes N Sleep Apnea Y Heart Disease N Hypertension Y Gynecological HistoryNo gynecological history recorded. Obstetrics History GPAL:G 0 P 0 0 0 0 Past Encounters Encounter ID Performer Location Encounter Start Date Encounter Closed Date Diagnosis/Indication Diagnosis SNOMED-CT Code Diagnosis ICD10 Code Diagnosis Note [id number] RICCARDO Lozano [facility]ariatric [facility] and Adv S[facility] [address] [facility] [address] [place] [address] 09/07/2023 11:31:58 09/07/2023 14:21:54 Essential hypertension 74928153 I10 Dyslipidemia 866377449 E 78.5 Iron deficiency 88050144 E61.1 Hyperparathyroidism 6699 9008 E21.3 Obesity 827994765 E66.9 Weight loss surgery options discussed at [...] testing has been completed Pre-surger y evaluation 861751674 Z01.818 Disorder o f function of stomach 561564057 K31.89 Obstructiv e sleep apnea syndrome 54579359 G47.[id number], LD [facility] Bariatric s and Adv Surg [address] [facility] [address] [place] [address] 09/07/2023 15:04:06 09/08/2023 10:44:50 Essential hypertension 79556677 I10 Obstructiv e sleep apnea syndrome 44323099 G47.33 Morbid obesity 344338268 E66.01 BMI 49.[id number], LD [facility]ariat[facility] Adv S[facility] [address] [place] [address] 10/08/2023 11:42:36 10/08/2023 13:00:11 Essential hypertension 96621123 I10 Obstructiv e sleep apnea syndrome 82597247 G47.33 Morbid obesity 597133271 E66.01 Unintentio nal weight gain 2526104821 08310 R63.5 [id number] KACY DON MD [facility] Urology-[address] [place] [address] 08/03/2024 09:38:35 08/03/2024 10:29:15 Ureteric stone 91729233 N20.1 Health Concerns Section Related Observation LastModified by Organization Detai ls LastModified Time None Recorded Concern Status LastModified by Organization Details LastModified Time None Recorded Advance Directives Directive None Recorded Payers Insurance Date Sequence Insurance Name Policy Number Policy Crocker Covered Member ID Crocker Member ID Guarantor Name 08/03/2024 1 [facility] (MEDICARE [facility]PLAC[facility]/AD VANTAGE - HMO) [id number] María Liriano [id number] María Liriano 08/03/2024 2 [facility] María Liriano [id number] María Liriano 08/03/2024 1 [place] [facility] (MEDICARE REPLACEMENT REGIONAL O) [id number] María Liriano [id number] María Liriano Notes Date Note Type Note [...] physical hunger, makes me happy. RICCARDO Lozano [address], [place], [address], [facility] [place] [facility] & [place] 09/07/2023 14:48:49 4 text/html Intake Template RDN met w/ JUSTUS [...] skipsL: Eats out, chicken sand, burger, pizzaD: [place], chicken and dumplins, spaghettiSnacks: chips Eating out: [...] monitor PRN. MARÍA SHELL RD, LD [address], [place], [address], [facility] & [place] 09/07/2023 16:35:42 4 text/html RDN met w/ [...] with walking. EWELINA MON RDN, LD [address] [facility] [address], [place], [address], [facility] & [place] 10/08/2023 13:58:45 5 text/html 08/03/24 CC: [id number]-female present as new patient for cystoscopy w/L [...] will be performed using a kit from [employer]. An ultrasound will be ordered six weeks post-procedure to ensure there is no scar tissue causing kidney blockage. A follow-up appointment is scheduled in six months, with a plain X-ray to be done prior to the visit. 07/28/24 L URS, laser, L stent07/27/24 Cr 1.3, GFR 50, Hgb 9.1, Hct 30.704 CT abd/pel w/o ([facility]): several bilateral renal collecting system calcification's, [...] is like a cyst KACY DON MD [address], [place], [address], [facility] - [place] & [place] 08/03/2024 14:16:08 OBGyn Episode No OBEpisode recorded.
--- OUTSIDE RECORDS SUMMARY | 2024-08-24 10:54 | XMS_ITS | Continuity of Care Document ---
Author Organization [facility]-100 Address [address] [place] [address] Care Team Providers Care Tank Car Inspector Name Role Phone ROSA RITTER Primary Care Provider [phone] Assessment Encounter Date Assessment Date Assessment LastModified [...] [email or web address] [facility], [address], [address], [place], [address], 08/10/2024 13:41:56 uric acid, serum or plasma 2024 025 [email or web address] [facility], [address], [address], [place], [address], 08/10/2024 13:41:57 phosphor us, serum or plasma 2024 025 DREA [facility], [address], [address], [place], [address], 08/03/2024 11:48:27 Referral None recorded . Procedures None recorded . Surgeries None recorded . Imaging US, renal [address] (Centralized Scheduling), [address], [place], [address], 08/03/2024 10:23:14 XR, kidney + ureter + bladder [address] (Centralized Scheduling), [address], [place], [address], 08/03/2024 10:23:14 Medication Orders None recorded . Patient TargetsNo targets recorded. Patient InstructionsNo instructions recorded. Reason for Referral None Reported. Results Created Date Observation Date Name Description Value Unit Range Abnormal Flag Note LastModifiedBy Organization Detail LastModifiedTime 07/27/19 25 07/25/2024 CT, abdom en + pelvi s, w/o contr ast No observ ation record ed. [facility] (Med Record) [address], [place], [address], 07/27/2024 09:03:28 Result Notes None recorded. Problems Name Problem SNOMED Code Status Onset Date Resolution Date Notes Provider Name and Address Organization Details Recorded Time Ureteric stone 97229806 Active 2024 KACY DON MD [address], [place], [address] , [place] - [facility] - [place] & [place] 10:22:34 Essential hypertension 59376697 Active 2023 RICCARDO Lozano [address], [place], [address] , [facility] - [facility] & [place] 4 09:01:10 Dyslipidemia 267513586 Active [address], [facility] [address] , [facility] - [facility] & [place] 4 09:03:02 Iron deficiency 09932291 Active [address], [place] [address] , [facility] - [facility] & [place] 4 09:03:05 Hyperparathyr oidism 96933530 Active [address], [facility] [address] , [facility] - [facility] & [place] 4 09:03:12 Obesity 490471656 Active [address], [facility] [address] , [facility] - [facility] & [place] 4 09:03:25 Disorder of function of stomach 496055433 Active [address], [facility] [address] [facility] - [facility] & [place] 4 14:08:55 Obstructive sleep apnea syndrome 30552839 Active [address], [facility] [address] , [facility] - [facility] & [place] 4 14:09:55 Problem Notes None recorded. Procedures Surgical History Date Name Laterality Status Provider Name and Address Organization Details Recorded Time 5 Cystoscopy-Fem krissy completed KACY DON MD [address], [facility] [address], [place] - [facility] & [place] 08/03/2024 10:23:31 biopsy of breast completed Giovanna Birmingham [facility] & [place] 09/07/2023 11:16:50 extraction of wisdom tooth completed Giovanna Birmingham [facility] & [place] 09/07/2023 11:16:57 hernia repair completed RICCARDO Bhandari [address], [place], [address], [facility] & [place] 09/07/2023 14:09:37 Imaging Results None recorded. Procedure [...] Updated DateTime 5 172.72 cm 44.7 kg/m2 702678. 16 g 97 % 97 % 67 /min 132 mm[Hg] 74 mm[Hg] Deana Mabry [place] - [place] [facility] & [place] 5 10:06:27 Social History None recorded. Functional Status Question Answer Note LastModified by Organization D etails LastModified Time What is your level of alcohol consumption? None [email or web address] Information not available 09/07/2023 Mental Status None [...] available 09/04/2023 12:54:27 Medical History Condition Response Anxiety Disorder Y Diabetes N Bleeding Disorder N Hyperthyroidism Y Asthma Y Depression Y Anemia Y Sleep Apnea Y High [...] SNOMED-CT Code Diagnosis ICD10 Code Diagnosis Note [id number] KACY DON MD [facility] [place] [address] 08/03/2024 09:38:35 08/03/2024 10:29:15 Ureteric stone 32424437 N20.1 Health Concerns Section Related Observation LastModified by Organization Detai ls LastModified Time None Recorded Concern Status LastModified by Organization Details LastModified Time None Recorded Payers Encounter Date Sequence Insurance Name Policy Number Policy Crocker Covered Member ID Crocker Member ID Guarantor Name 08/03/2024 2 [employer]ETNA [facility] (MEDICAID HMO) María Liriano [id number] María Liriano 08/03/2024 1 [facility] (MEDICARE REPLACEMENT/A DVANTAGE - HMO) [id number] María Liriano [id number] María Liriano Notes Date Note Type Note Provider Name and Address Organization Details Recorded Time 08/03/2024 text/html 08/03/24 CC: [id number]-female present as new patient for cystoscopy w/L [...] will be performed using a kit from [employer]. An ultrasound will be ordered six weeks post-procedure to ensure there is no scar tissue causing kidney blockage. A follow-up appointment is scheduled in six months, with a plain X-ray to be done prior to the visit. 07/28/24 L URS, laser, L stent07/27/24 Cr 1.3, GFR 50, Hgb 9.1, Hct 30.704 CT abd/pel w/o ([facility]): several bilateral renal collecting system calcification's, [...] is like a cyst KACY DON MD [address], [place], [address], [facility] - [place] & [place] 08/03/2024 14:16:08 OBGyn Episode No OBEpisode recorded.
[2024-08-24] MEDS: SODIUM CHLORIDE 0.9% 50ML BAG 50 ML IV (11:11)
[2024-08-24] MEDS: IRON SUCROSE COMPLEX 200 MG in 0.9 % SODIUM CHLORIDE 100 ML 220 MG IV (11:11)
[2024-08-24 11:15] VITALS: BP 137/86; PULSE 57; RESP 18; O2SAT 98
[2024-08-24 11:55] VITALS: BP 135/72; PULSE 77; RESP 18; O2SAT 98
== END 2024-08-24 11:55 | disposition home or self-care (01) ==
LOC: INF 10:51
PROVIDERS: PCP Nurse Practitioner; Visit Provider Nurse Practitioner
DX: D64.9 Anemia, unspecified (principal)
CPT/HCPCS: 96365; J1756

== ENCOUNTER 2024-08-28 08:52 | Outpatient (POV) | payer MEDICARE, SELFPAY ==
--- OUTSIDE RECORDS SUMMARY | 2024-08-28 08:55 | XMS_ITS | Continuity of Care Document ---
Author Organization [facility]100 Address [address] [place] [address] Care Team Providers Care Market Research Coordinator Name Role Phone ROSA RITTER Primary Care Provider [phone] Assessment Encounter Date Assessment Date Assessment LastModified [...] [email or web address] [facility], [address], [address], [place], [address], 08/10/2024 13:41:56 uric acid, serum or plasma 2024 025 [email or web address] [facility], [address], [address], [place], [address], 08/10/2024 13:41:57 phosphor us, serum or plasma 2024 025 DREA [facility], [address], [address], [place], [address], 08/03/2024 11:48:27 Referral None recorded . Procedures None recorded . Surgeries None recorded . Imaging US, renal [address] (Centralized Scheduling), [address], [place], [address], 08/03/2024 10:23:14 XR, kidney + ureter + bladder [address] (Centralized Scheduling), [address], [place], [address], 08/03/2024 10:23:14 Medication Orders None recorded . Patient TargetsNo targets recorded. Patient InstructionsNo instructions recorded. Reason for Referral None Reported. Results Created Date Observation Date Name Description Value Unit Range Abnormal Flag Note LastModifiedBy Organization Detail LastModifiedTime 07/27/19 25 07/25/2024 CT, abdom en + pelvi s, w/o contr ast No observ ation record ed. [facility] (Med Record) [address], [place], [address], 07/27/2024 09:03:28 Result Notes None recorded. Problems Name Problem SNOMED Code Status Onset Date Resolution Date Notes Provider Name and Address Organization Details Recorded Time Ureteric stone 69606558 Active 2024 KACY DON MD [address], [place], [address] , [place] [facility] - [place] & [place] 10:22:34 Essential hypertension 25677403 Active 2023 RICCARDO Lozano [address], [place], [address] , [facility] - [facility] & [place] 4 09:01:10 Dyslipidemia 695418863 Active [address], [facility] [address] , [facility] - [facility] & [place] 4 09:03:02 Iron deficiency 01621943 Active [address], [place] [address] , [facility] - [facility] & [place] 4 09:03:05 Hyperparathyr oidism 60968764 Active [address], [facility] [address] , [facility] - [facility] & [place] 4 09:03:12 Obesity 927576007 Active [address], [facility] [address] , [facility] - [facility] & [place] 4 09:03:25 Disorder of function of stomach 077934091 Active [address], [facility] [address] [facility] - [facility] & [place] 4 14:08:55 Obstructive sleep apnea syndrome 71184329 Active [address], [facility] [address] , [facility] - [facility] & [place] 4 14:09:55 Problem Notes None recorded. Procedures Surgical History Date Name Laterality Status Provider Name and Address Organization Details Recorded Time 5 Cystoscopy-Fem krissy completed KACY DON MD [address], [facility] [address], [place] - [facility] & [place] 08/03/2024 10:23:31 biopsy of breast completed Giovanna Birmingham [facility] & [place] 09/07/2023 11:16:50 extraction of wisdom tooth completed Giovanna Birmingham [facility] & [place] 09/07/2023 11:16:57 hernia repair completed RICCARDO Bhandari [address], [place], [address], [facility] & [place] 09/07/2023 14:09:37 Imaging Results None recorded. Procedure [...] Updated DateTime 5 172.72 cm 44.7 kg/m2 555974. 16 g 97 % 97 % 67 /min 132 mm[Hg] 74 mm[Hg] Deana Mabry [place] [facility] & [place] 5 10:06:27 Social History None recorded. Functional Status Question Answer Note LastModified by Organization D etails LastModified Time What is your level of alcohol consumption? None [email or web address] Information not available 09/07/2023 Mental Status None [...] SNOMED-CT Code Diagnosis ICD10 Code Diagnosis Note [id number] KACY DON MD [facility] [place] [address] 08/03/2024 09:38:35 08/03/2024 10:29:15 Ureteric stone 96273503 N20.1 Health Concerns Section Related Observation LastModified by Organization Detai ls LastModified Time None Recorded Concern Status LastModified by Organization Details LastModified Time None Recorded Payers Encounter Date Sequence Insurance Name Policy Number Policy Crocker Covered Member ID Crocker Member ID Guarantor Name 08/03/2024 2 [employer]ETNA [facility] (MEDICAID HMO) María Liriano [id number] María Liriano 08/03/2024 1 [facility] (MEDICARE REPLACEMENT/A DVANTAGE - HMO) [id number] María Liriano [id number] María Liriano Notes Date Note Type Note Provider Name and Address Organization Details Recorded Time 08/03/2024 text/html 08/03/24 CC: [id number]-female present as new patient for cystoscopy w/L [...] will be performed using a kit from [employer]. An ultrasound will be ordered six weeks post-procedure to ensure there is no scar tissue causing kidney blockage. A follow-up appointment is scheduled in six months, with a plain X-ray to be done prior to the visit. 07/28/24 L URS, laser, L stent07/27/24 Cr 1.3, GFR 50, Hgb 9.1, Hct 30.704 CT abd/pel w/o ([facility]): several bilateral renal collecting system calcification's, no [...] is like a cyst KACY DON MD [address], [place], [address], [facility] - [place] & [place] 08/03/2024 14:16:08 OBGyn Episode No OBEpisode recorded.
--- NOTE | 2024-08-28 09:07 | EXP.PAIN.SOA ---
[facility] Disclaimer: The information contained in this section may have been updated after the patient was seen, as this information can be updated by other users. Medical History CHF (congestive heart failure) Asthma HLD (hyperlipidemia) HTN (hypertension) Anxiety Hyperparathyroidism Elevated brain natriuretic peptide (BNP) level Anemia Surgical History History of hernia repair Family History Other Family history of acute congestive heart failure Family history of diabetes mellitus type II Family history of hyperlipidemia Family history of hypertension Social History Smoking Status: Never smoker alcohol intake: never current occupational status: unemployed Travel in the last 8 weeks?: None household members: other housing: house current occupational exposures/hazards: No PM Subjective & Objective Subjective Subjective:: Patient is a pleasant 49-year-old female who presents today for worsening pain and would like to get rescheduled for an injection. Patient had previously seen our office due to increased low back and leg symptoms. Patient has now changed insurance and needs to be resubmitted. Patient does state that she still has the fairly constant pain there in her low back that does radiate down into her left leg. She denies any symptoms into her right extremity. She does state it is a aching, throbbing sensation with numbness and tingling. Patient states that she has to take multiple breaks due to the worsening pain. It does interfere with her ability perform activities of daily living such as cooking and cleaning. Patient at our last visit was sent in baclofen 5 mg 3 times daily however she felt like this is not working as well as it initially had. Patient has also been tried on meloxicam, Celebrex and lidocaine patches with minimal changes. Patient is interested in any help we may be able to provide. Her Gary has been reviewed and is appropriate. Review of Systems: General: No recent weight changes, no fever, no sleep disturbances Respiratory: No cough, no shortness of air, no recurring pulmonary infections Cardiovascular/peripheral vascular: No chest pain, no palpitations, no edema, no shortness of breath Gastrointestinal: No new onset incontinence, normal bowel movements reported Genitourinary: No new onset incontinence Musculoskeletal: Low back pain, left leg pain Psychiatric: [Normal mood/affect] Neurological: [Denies weakness in extremities], [denies balance issues] Pain at rest (0-10 scale): 7 Objective Objective:: Physical Exam: General: Alert and oriented x3, no acute distress, pleasant and cooperative Lungs: Respirations even and unlabored, symmetrical chest expansion Eyes: PERRL Musculoskeletal: Flexion and extension of lumbar [spine] somewhat guarded secondary to pain, [antalgic gait noted] positive left leg raise with decreased sensation to light touch and decreased reflexes Neurological: Speech clear, no gross sensory deficit Has patient had previous pain injection?: No Conservative treatment options previously tried: Home exercise plan Length of treatment: Longer than 12 weeks Meds Home Medications and Allergies Home Medications ?Medication ?Instructions ?Recorded ?Confirmed ?Type metoprolol succinate 100 mg 100 mg PO DAILY Hypertension 03/26/18 08/18/24 History tablet,extended release 24 hr sertraline 100 mg tablet 150 mg PO DAILY Depression 03/26/18 08/18/24 History alprazolam 0.5 mg tablet 0.5 mg PO BID Anxiety 09/14/19 08/18/24 History diclofenac sodium 50 mg 50 mg PO BID 06/16/23 08/18/24 History tablet,delayed release levothyroxine 75 mcg tablet 75 mcg PO DAILY 06/16/23 08/18/24 History lidocaine 5 % topical patch 1 patch topical DAILY #30 ea 04/13/24 08/18/24 Rx rosuvastatin 5 mg tablet 5 mg PO DAILY 05/29/24 08/18/24 History baclofen 5 mg tablet 5 mg PO TID #90 tabs 07/06/24 08/18/24 Rx celecoxib 200 mg capsule (Celebrex) 200 mg PO DAILY #14 caps 07/06/24 08/18/24 Rx cefdinir 300 mg capsule 300 mg PO BID #20 caps 07/24/24 08/18/24 Rx ondansetron 4 mg disintegrating 4 mg PO Q8H PRN nausea and 07/24/24 08/18/24 Rx tablet vomiting #10 tabs ketorolac 10 mg tablet 10 mg PO Q8H PRN pain 3 days #12 07/25/24 08/18/24 Rx tabs ondansetron HCl 4 mg tablet 4 mg PO Q8H PRN nausea and 07/25/24 08/18/24 Rx vomiting 4 days #12 tabs oxycodone 5 mg tablet 5 mg PO Q8H PRN pain #12 tabs 07/25/24 08/18/24 Rx tamsulosin 0.4 mg capsule (Flomax) 0.4 mg PO HS #14 caps 07/25/24 08/18/24 Rx dapagliflozin propanediol 5 mg 5 mg PO DAILY Diabetes #30 tabs 08/24/24 Rx tablet (Farxiga) New Prescriptions to Start Prescriptions: Allergies Allergy/AdvReac Type Severity Reaction Status Date / Time No Known Allergies Allergy Verified 07/24/24 08:12 Assessment and Plan *Assessment and plan (1) Left leg pain: Status: Acute Category: Medical Code(s): M79.605 - Pain in left leg (2) Degenerative disc disease, lumbar: Status: Acute Category: Medical Code(s): M51.369 - Other intervertebral disc degeneration, lumbar region without mention of lumbar back pain or lower extremity pain Plan Patient continues to have significant pain in her low back with numbness and tingling going into her left lower extremity. Patient did have limited range of motion of her lumbar spine with a positive leg raise, decreased sensation light touch decreased reflex. Patient was reviewed over regarding the left transforaminal risk and benefits and she would like to proceed forward with this plan of care. Patient is not on any blood thinners. Patient has had chronic back pain for longer than 6 months and remained unchanged after conservative therapies such as oral medication, heat and ice, topicals, physical therapy, chiropractor therapy and continued at home stretching exercise that was physician guided for longer than 12 weeks. Patient has not had any transforaminal injections however did undergo a lumbar epidural in 2019 for that did provide 50% relief and did ease the pain down and make it more manageable for 3 months. Patient may be a potential candidate for future surgery based off her results of this injection. Patient will be refilled on her baclofen and changed it to 10 mg 3 times a day. Patient will be scheduled for a left transforaminal epidural steroid injection L4-L5 L5-S1 under fluoroscopy. Patient has been instructed to contact the clinic with any concerns before the next appointment. Dr. Marshall has reviewed this note and agrees with this plan of care. This note was dictated using voice recognition software and make contain errors or omissions. All injections are used with Lidocaine, Bupivacaine and dexamethasone. Occasionally urine drug screen is needed to verify patient's compliance with our office pain contract. This is ordered based off specific treatments related to chronic pain with the potential to abuse certain medications.
[2024-08-28 09:59] VITALS: BP 122/83; PULSE 55; RESP 12; O2SAT 97; BMI 40.3
== END 2024-08-28 23:59 | disposition home or self-care (01) ==
LOC: SC.PAIN 08:53
PROVIDERS: PCP Nurse Practitioner; Visit Provider Nurse Practitioner Family
DX: M79.605 Pain in left leg (principal); M51.369 Other intervertebral disc degeneration, lumbar region without mention of lumbar back pain or lower extremity pain; Z73.89 Other problems related to life management difficulty
CPT/HCPCS: 99212; G0463

== ENCOUNTER 2024-08-31 10:51 | Outpatient (CLI) | payer MEDICARE, SELFPAY ==
--- OUTSIDE RECORDS SUMMARY | 2024-08-31 10:54 | XMS_ITS | Data Portability ---
Author Organization [place] [facility] [place] [facility] ADMIN Address [address] [place] [address] Care Team Providers Care Restaurant Supervisor Name Role Phone ROSA RITTER Primary Care [...] [email or web address] [facility], [address], [address], [place], [address], 08/10/2024 13:41:56 uric acid, serum or plasma 2024 025 [email or web address] [facility], [address], [address], [place], [address], 08/10/2024 13:41:57 phosphoru s, serum or plasma 2024 025 [email or web address] [facility], [address], [address], [place], [address], 08/03/2024 11:48:27 CBC w/ auto diff 2023 024 [email or web address] [facility], [address], [address], [place], [address], 10/01/2023 14:03:55 iron + TIBC + ferritin, serum 2023 024 [email or web address] [facility], [address], [address], [place], [address], 10/01/2023 14:03:55 copper, serum or plasma 2023 024 [email or web address] [facility], [address], [address], [place], [address], 10/01/2023 14:03:57 CMP, serum or plasma 2023 024 [email or web address] [facility], [address], [address], [place], [address], 10/01/2023 14:03:55 HbA1c (hemoglob in A1c), blood 2023 024 [email or web address] [facility], [address], [address], [place], [address], 10/01/2023 14:03:55 lipid panel, serum 2023 024 [email or web address] [facility], [address], [address], [place], [address], 10/01/2023 14:03:56 vitamin D, 25-hydrox y, total, serum 2023 024 [facility], [address], [address], [place], [address], 10/01/2023 14:03:56 vitamin A (retinol) , serum 2023 024 [facility], [address], [address], [place], [address], 10/01/2023 14:03:56 vitamin E, serum 2023 024 [facility], [address], [address], [place], [address], 10/01/2023 14:03:56 PTH (parathyr oid hormone), intact, serum or plasma 2023 024 [email or web address] [facility], [address], [address], [place], [address], 10/01/2023 14:03:56 TSH + free T4, serum 2023 024 [facility], [address], [address], [place], [address], 10/01/2023 14:03:56 folate, serum 2023 024 [email or web address] [facility], [address], [address], [place], [address], 10/01/2023 14:03:56 methylmal hang, QN, serum or plasma 2023 024 [email or web address] [facility], [address], [address], [place], [address], 10/01/2023 14:03:57 thiamine, QN, blood 2023 024 [email or web address] [facility], [address], [address], [place], [address], 10/01/2023 14:03:57 Referral None recorded. Procedures None recorded. Surgeries esophagog astroduod enoscopy (SURG) 2023 024 Taty Richards MD, [address], [address], [place], [address], 01/04/2024 13:17:44 Imaging US, renal [address] (Centralized Scheduling), [address], [place], [address], 08/03/2024 10:23:14 XR, kidney + ureter + bladder [address] (Centralized Scheduling), [address] , [place], [address], 08/03/2024 10:23:14 XR, chest, 2 view 2023 024 [email or web address] [facility] (Centralized Scheduling), [address], [place], [address], 10/01/2023 14:03:28 electroca rdiogram, routine ECG, 12 leads min 2023 024 [email or web address] Not available 10/01/2023 13:49:45 Medication Orders None recorded. Patient Targets Encounter Date Encounter Id Patient Goals Patient Target Last Modified By Organization Details Last Modified Time 1. Start keeping food records2. Decrease eating out to 2-3 times a week3. Drink 64 oz fluid/day, decrease OJ to 4oz4. Physical activity 3 times a week for 15 minutes5. Review manual for meal and snack ideas [email or web address] Not available 09/07/2023 16:35:30 Patient InstructionsNo instructions recorded. Reason for Referral None Reported. Results Created Date Observation Date Name Description Value Unit Range Abnormal Flag Note LastModifiedBy Organization Detail LastModifiedTime 08/04/1908/03/2024 CALCI UM TOTAL calcium 8.6 mg/dL 8.5-10 .5 Not Available [facility] [address] [facility], [place], [address], 08/03/2024 11:48:26 08/04/19 25 08/03/2024 PHOSP HOROU S phosphorus 3.2 mg/dL 2.5-4. 9 Not Available [facility] [address] [facility], [place], [address], 08/03/2024 11:48:27 08/04/19 25 08/03/2024 URIC ACID uric acid 4.2 mg/dL 2.6-6. 0 Not Available [facility] [address] [facility], [place], [address], 08/03/2024 12:13:16 08/04/19 25 08/04/2024 PTH, INTAC T PTH, intact 59 pg/mL 15-65 Perfo rmed at: - [facility] [address] [address] Lab Direc tor: Cristian sloan PhD, Phone : [phone] Not Available [facility] [address] [facility], [place], [address], 08/04/2024 11:13:13 04/07/25/2024 CT, abdom en + pelvi s, w/o contr ast No observ ation record ed. [facility] (Med Record) [address], [place], [address], 07/27/2024 09:03:28 Result Notes None recorded. Problems Name Problem SNOMED Code Status Onset Date Resolution Date Notes Provider Name and Address Organization Details Recorded Time Ureteric stone 83881404 Active 2024 KACY DON MD [address], [place], [address] , [place] [facility] & [place] 5 10:22:34 Essential hypertension 49102473 Active [address], [place], [address] , [place] [facility] & [place] 4 09:01:10 Dyslipidemia 951916947 Active [address], [place], [address] , [place] [facility] & [place] 4 09:03:02 Iron deficiency 80346862 Active [address], [place], [address] , [place] [facility] & [place] 4 09:03:05 Hyperparathyr oidism 42484884 Active [address], [place], [address] , [place] [facility] & [place] 4 09:03:12 Obesity 348643022 Active [address], [place], [address] , [place] [facility] & [place] 4 09:03:25 Disorder of function of stomach 633398604 Active [address], [place], [address] , [facility] & [place] 4 14:08:55 Obstructive sleep apnea syndrome 11032771 Active 2023 RICCARDO Lozano [address], [place], [address] , [facility] & [place] 4 14:09:55 Problem Notes None recorded. Procedures Surgical History Date Name Laterality Status Provider Name and Address Organization Details Recorded Time Cystoscopy-Fem krissy completed KACY DON MD [address], [place], [address], [facility] & [place] 08/03/2024 10:23:31 biopsy of breast completed Giovanna Birmingham [facility] & [place] 09/07/2023 11:16:50 extraction of wisdom tooth completed Giovanna Birmingham [facility] & [place] 09/07/2023 11:16:57 hernia repair completed RICCARDO Bhandari [address], [place], [address], [facility] & [place] 09/07/2023 14:09:37 Imaging Results Imaging Date Name Status LastModified by Organiz ation Details LastModified Time 07/25/2024 CT, abdomen + pelvis, w/o contrast completed [facility] (Med Record) [address], [place], [address], 07/27/2024 09:03:28 Procedure Notes None recorded. Medical [...] Updated DateTime 4 172.72 cm 49.5 kg/m2 635994. 32 g 98.3 [degF] 60 /min 166 mm[Hg] 85 mm[Hg] Kasie Ada [place] - [facility] & [place] 4 13:48:51 Date Recorded Body height Body mass index (BMI) Body weight Oxygen saturation Oxygen saturation in Arterial blood by Pulse oximetry Heart rate Systolic blood pressure Diastolic blood pressure Provider Name and Address Organization Details Last Updated DateTime 5 172.72 cm 44.7 kg/m2 695702. 16 g 97 % 97 % 67 /min 132 mm[Hg] 74 mm[Hg] Deana Mabry [place] - [facility] & [place] 10:06:27 Social History None recorded. Functional Status Question Answer Note LastModified by Organization D etails LastModified Time What is your level of alcohol consumption? None [email or web address] Information not available 09/07/2023 Mental Status None [...] History Condition Response Hyperthyroidism Y Depression Y Deep Vein Thrombosis N Anxiety Disorder Y High Cholesterol Y Liver Disease N Headaches Y Kidney Disease N Anemia Y Diabetes N Bleeding Disorder N Asthma Y Sleep Apnea Y Heart Disease N Pulmonary Embolism N Hypertension Y Gynecological HistoryNo gynecological history recorded. Obstetrics History GPAL:G 0 P 0 0 0 0 Past Encounters Encounter ID Performer Location Encounter Start Date Encounter Closed Date Diagnosis/Indication Diagnosis SNOMED-CT Code Diagnosis ICD10 Code Diagnosis Note [id number] RICCARDO Lozano [facility] [address] [facility] [address] [place] [address] 09/07/2023 11:31:58 09/07/2023 14:21:54 Essential hypertension 05635089 I10 Dyslipidemia 900176476 E 78.5 Iron deficiency 20033883 E61.1 Hyperparathyroidism 6699 9008 E21.3 Obesity 156471810 E66.9 Weight loss surgery options discussed at [...] testing has been completed Pre-surger y evaluation 082970387 Z01.818 Disorder o f function of stomach 492307926 K31.89 Obstructiv e sleep apnea syndrome 39935507 G47.[id number], LD [facility] [address] [facility] [address] [place] [address] 09/07/2023 15:04:06 09/08/2023 10:44:50 Essential hypertension 22365889 I10 Obstructiv e sleep apnea syndrome 75909465 G47.33 Morbid obesity 733871551 E66.01 BMI 49.[id number], LD [facility] [address] [place] [address] 10/08/2023 11:42:36 10/08/2023 13:00:11 Essential hypertension 64417234 I10 Obstructiv e sleep apnea syndrome 37435265 G47.33 Morbid obesity 679028645 E66.01 Unintentio nal weight gain 1857664598 12822 R63.5 [id number] KACY DON MD [facility]-[address] [place] [address] 08/03/2024 09:38:35 08/03/2024 10:29:15 Ureteric stone 01389241 N20.1 Health Concerns Section Related Observation LastModified by Organization Detai ls LastModified Time None Recorded Concern Status LastModified by Organization Details LastModified Time None Recorded Advance Directives Directive None Recorded Payers Insurance Date Sequence Insurance Name Policy Number Policy Crocker Covered Member ID Crocker Member ID Guarantor Name 08/03/2024 1 [facility] ([facility] VANTAGE - HMO) [id number] María Liriano [id number] María Liriano 08/03/2024 2 [facility] (MEDICAID HMO) María Liriano [id number] María Liriano 08/03/2024 1 [place] [facility] (MEDICARE REPLACEMENT REGIONAL O) [id number] María Liriano [id number] María Liriano Notes Date Note Type Note [...] physical hunger, makes me happy. RICCARDO Lozano [address], [place], [address], [facility] - [facility] & [place] 09/07/2023 14:48:49 4 text/html Intake Template RDN [...] skipsL: Eats out, chicken sand, burger, pizzaD: [place], chicken and dumplins, spaghettiSnacks: chips Eating out: [...] monitor PRN. MARÍA SHELL RD, LD [address], [place], [address], [facility] & [place] 09/07/2023 16:35:42 4 text/html RDN met w/ [...] with walking. EWELINA MON RDN, LD [address] [facility], [place], [address], [facility] & [place] 10/08/2023 13:58:45 5 text/html 08/03/24 CC: [id number]-acr-female present as new patient for cystoscopy w/L [...] will be performed using a kit from [employer]. An ultrasound will be ordered six weeks post-procedure to ensure there is no scar tissue causing kidney blockage. A follow-up appointment is scheduled in six months, with a plain X-ray to be done prior to the visit. 07/28/24 L URS, laser, L stent07/27/24 Cr 1.3, GFR 50, Hgb 9.1, Hct 30.704 CT abd/pel w/o ([facility]): several bilateral renal collecting system calcification's, [...] is like a cyst KACY DON MD [address], [place], [address], [facility] - [place] & [place] 08/03/2024 14:16:08 OBGyn Episode No OBEpisode recorded.
--- OUTSIDE RECORDS SUMMARY | 2024-08-31 10:54 | XMS_ITS | Continuity of Care Document ---
Author Organization [facility] Address [address] [facility] [address] [place] [address] Care Team Providers Care Slab Puller Name Role Phone ROSA RITTER Primary Care Provider [phone] Assessment Encounter Date Assessment Date Assessment LastModified [...] [email or web address] [facility], [address], [address], [place], [address], 08/10/2024 13:41:56 uric acid, serum or plasma 2024 025 [email or web address] [facility], [address], [address], [place], [address], 08/10/2024 13:41:57 phosphor us, serum or plasma 2024 025 [email or web address] [facility], [address], [address], [place], [address], 08/03/2024 11:48:27 Referral None recorded . Procedures None recorded . Surgeries None recorded . Imaging US, renal [address] (Centralized Scheduling), [address], [place], [address], 08/03/2024 10:23:14 XR, kidney + ureter + bladder [address] (Centralized Scheduling), [address], [place], [address], 08/03/2024 10:23:14 Medication Orders None recorded . Patient TargetsNo targets recorded. Patient InstructionsNo instructions recorded. Reason for Referral None Reported. Results Created Date Observation Date Name Description Value Unit Range Abnormal Flag Note LastModifiedBy Organization Detail LastModifiedTime 07/27/19 25 07/25/2024 CT, abdom en + pelvi s, w/o contr ast No observ ation record ed. [facility] (Med Record) [address], [place], [address], 07/27/2024 09:03:28 Result Notes None recorded. Problems Name Problem SNOMED Code Status Onset Date Resolution Date Notes Provider Name and Address Organization Details Recorded Time Ureteric stone 82605968 Active 2024 KACY DON MD [address], [place], [address] , [place] [facility] - [place] [facility] [place] 10:22:34 Essential hypertension 96107600 Active 2023 RICCARDO Lozano [address], [place], [address] , [facility] - [facility] & [place] 4 09:01:10 Dyslipidemia 199458264 Active [address], [facility] [address] , [facility] - [facility] & [place] 4 09:03:02 Iron deficiency 36019555 Active [address], [place] [address] , [facility] - [facility] & [place] 4 09:03:05 Hyperparathyr oidism 88423719 Active [address], [facility] [address] , [facility] - [facility] & [place] 4 09:03:12 Obesity 123691481 Active [address], [facility] [address] , [facility] - [facility] & [place] 4 09:03:25 Disorder of function of stomach 956395791 Active [address], [facility] [address] [facility] - [facility] & [place] 4 14:08:55 Obstructive sleep apnea syndrome 06162878 Active [address], [facility] [address] , [facility] - [facility] & [place] 4 14:09:55 Problem Notes None recorded. Procedures Surgical History Date Name Laterality Status Provider Name and Address Organization Details Recorded Time 5 Cystoscopy-Fem krissy completed KACY DON MD [address], [facility] [address], [place] - [facility] & [place] 08/03/2024 10:23:31 biopsy of breast completed Giovanna Birmingham [facility] & [place] 09/07/2023 11:16:50 extraction of wisdom tooth completed Giovanna Birmingham [facility] & [place] 09/07/2023 11:16:57 hernia repair completed RICCARDO Bhandari [address], [place], [address], [facility] & [place] 09/07/2023 14:09:37 Imaging Results None recorded. Procedure [...] Updated DateTime 5 172.72 cm 44.7 kg/m2 312963. 16 g 97 % 97 % 67 /min 132 mm[Hg] 74 mm[Hg] Deana Mabry [place] [facility] & [place] 5 10:06:27 Social History None recorded. Functional Status Question Answer Note LastModified by Organization D etails LastModified Time What is your level of alcohol consumption? None [email or web address] Information not available 09/07/2023 Mental Status None [...] SNOMED-CT Code Diagnosis ICD10 Code Diagnosis Note [id number] KACY DON MD [facility] Urology-[address] [place] [address] 08/03/2024 09:38:35 08/03/2024 10:29:15 Ureteric stone 90247071 N20.1 Health Concerns Section Related Observation LastModified by Organization Detai ls LastModified Time None Recorded Concern Status LastModified by Organization Details LastModified Time None Recorded Payers Encounter Date Sequence Insurance Name Policy Number Policy Crocker Covered Member ID Crocker Member ID Guarantor Name 08/03/2024 2 [employer] [facility] (MEDICAID HMO) María Liriano [id number] María Liriano 08/03/2024 1 [facility] (MEDICARE REPLACEMENT/A DVANTAGE - HMO) [id number] María Liriano [id number] María Liriano Notes Date Note Type Note Provider Name and Address Organization Details Recorded Time 08/03/2024 text/html 08/03/24 CC: 13-[id number]-psp-female present as new patient for cystoscopy w/L [...] will be performed using a kit from [employer]. An ultrasound will be ordered six weeks post-procedure to ensure there is no scar tissue causing kidney blockage. A follow-up appointment is scheduled in six months, with a plain X-ray to be done prior to the visit. 07/28/24 L URS, laser, L stent07/27/24 Cr 1.3, GFR 50, Hgb 9.1, Hct 30.704 CT abd/pel w/o ([facility]): several bilateral renal collecting system calcification's, [...] is like a cyst KACY DON MD [address], [place], [address], [facility] - [place] & [place] 08/03/2024 14:16:08 OBGyn Episode No OBEpisode recorded.
[2024-08-31 11:15] VITALS: BP 137/84; PULSE 57; RESP 16; TEMP 36.8; O2SAT 97
[2024-08-31] MEDS: SODIUM CHLORIDE 0.9% 50ML BAG 50 ML IV (11:15)
[2024-08-31] MEDS: IRON SUCROSE COMPLEX 200 MG in 0.9 % SODIUM CHLORIDE 100 ML 220 MG IV (11:15)
[2024-08-31] MEDS: SODIUM CHLORIDE 0.9% 10ML FLUSH SYRINGE 10 ML IV (11:15)
[2024-08-31 11:53] VITALS: BP 126/73; PULSE 57; RESP 16; TEMP 36.8; O2SAT 99
[2024-08-31 13:39] LABS: POC Glucose,Bedside 92 (70-110)
== END 2024-08-31 11:53 | disposition home or self-care (01) ==
LOC: INF 10:52
PROVIDERS: PCP Nurse Practitioner; Visit Provider Nurse Practitioner
DX: D50.9 Iron deficiency anemia, unspecified (principal)
CPT/HCPCS: 82962; 96365; J1756

== ENCOUNTER 2024-09-07 11:00 | Outpatient (CLI) | payer MEDICARE, SELFPAY ==
[2024-09-07 11:19] VITALS: BP 144/95; PULSE 90; RESP 16; TEMP 36.6; O2SAT 97
[2024-09-07] MEDS: SODIUM CHLORIDE 0.9% 50ML BAG 50 ML IV (11:19)
[2024-09-07] MEDS: IRON SUCROSE COMPLEX 200 MG in 0.9 % SODIUM CHLORIDE 100 ML 220 MG IV (11:19)
[2024-09-07] MEDS: SODIUM CHLORIDE 0.9% 10ML FLUSH SYRINGE 10 ML IV (11:19)
[2024-09-07 11:58] VITALS: BP 136/85; PULSE 85; RESP 14; TEMP 36.6; O2SAT 97
== END 2024-09-07 12:00 | disposition home or self-care (01) ==
LOC: INF 11:01
PROVIDERS: PCP Nurse Practitioner; Visit Provider Nurse Practitioner
DX: D50.9 Iron deficiency anemia, unspecified (principal)
CPT/HCPCS: 96365; J1756

== ENCOUNTER 2024-09-14 10:53 | Outpatient (CLI) | payer MEDICARE, OTHER, SELFPAY ==
--- OUTSIDE RECORDS SUMMARY | 2024-09-14 11:02 | XMS_ITS | Data Portability ---
Author Organization [place] [facility] ADMIN Address [address] [place] [address] Care Team Providers Care Top And Seat Cover Fitter Name Role Phone ROSA RITTER Primary Care [...] [email or web address] [facility], [address], [address], [place], [address], 08/10/2024 13:41:56 uric acid, serum or plasma 2024 025 [email or web address] [facility], [address], [address], [place], [address], 08/10/2024 13:41:57 phosphoru s, serum or plasma 2024 025 [email or web address] [facility], [address], [address], [place], [address], 08/03/2024 11:48:27 CBC w/ auto diff 2023 024 [email or web address] [facility], [address], [address], [place], [address], 10/01/2023 14:03:55 iron + TIBC + ferritin, serum 2023 024 [email or web address] [facility], [address], [address], [place], [address], 10/01/2023 14:03:55 copper, serum or plasma 2023 024 [email or web address] [facility], [address], [address], [place], [address], 10/01/2023 14:03:57 CMP, serum or plasma 2023 024 [email or web address] [facility], [address], [address], [place], [address], 10/01/2023 14:03:55 HbA1c (hemoglob in A1c), blood 2023 024 [email or web address] [facility], [address], [address], [place], [address], 10/01/2023 14:03:55 lipid panel, serum 2023 024 [facility], [address], [address], [place], [address], 10/01/2023 14:03:56 vitamin D, 25-hydrox y, total, serum 2023 024 [facility], [address], [address], [place], [address], 10/01/2023 14:03:56 vitamin A (retinol) , serum 2023 024 [email or web address] [facility], [address], [address], [place], [address], 10/01/2023 14:03:56 vitamin E, serum 2023 024 [email or web address] [facility], [address], [address], [place], [address], 10/01/2023 14:03:56 PTH (parathyr oid hormone), intact, serum or plasma 2023 024 [email or web address] [facility], [address], [address], [place], [address], 10/01/2023 14:03:56 TSH + free T4, serum 2023 024 [email or web address] [facility], [address], [address], [place], [address], 10/01/2023 14:03:56 folate, serum 2023 024 [email or web address] [facility], [address], [address], [place], [address], 10/01/2023 14:03:56 methylmal hang, QN, serum or plasma 2023 024 [email or web address] [facility], [address], [address], [place], [address], 10/01/2023 14:03:57 thiamine, QN, blood 2023 024 [facility], [address], [address], [place], [address], 10/01/2023 14:03:57 Referral None recorded. Procedures None recorded. Surgeries esophagog astroduod enoscopy (SURG) 2023 024 [email or web address] Taty Richards MD, [address], [address], [place], [address], 01/04/2024 13:17:44 Imaging US, renal [address] (Centralized Scheduling), [address], [place], [address], 08/03/2024 10:23:14 XR, kidney + ureter + bladder [address] (Centralized Scheduling), [address] , [place], [address], 08/03/2024 10:23:14 XR, chest, 2 view 2023 024 [facility] (Centralized Scheduling), [address], [place], [address], 10/01/2023 14:03:28 electroca rdiogram, routine ECG, 12 leads min 2023 024 [email or web address] Not available 10/01/2023 13:49:45 Medication Orders None recorded. Patient Targets Encounter Date Encounter Id Patient Goals Patient Target Last Modified By Organization Details Last Modified Time 1. Start keeping food records2. Decrease eating out to 2-3 times a week3. Drink 64 oz fluid/day, decrease OJ to 4oz4. Physical activity 3 times a week for 15 minutes5. Review manual for meal and snack ideas [email or web address] Not available 09/07/2023 16:35:30 Patient InstructionsNo instructions recorded. Reason for Referral None Reported. Results Created Date Observation Date Name Description Value Unit Range Abnormal Flag Note LastModifiedBy Organization Detail LastModifiedTime 08/04/1908/03/2024 CALCI UM TOTAL calcium 8.6 mg/dL 8.5-10 .5 Not Available [facility] ([facility]) [address] [facility], [place], [address], 08/03/2024 11:48:26 08/04/19 25 08/03/2024 PHOSP HOROU S phosphorus 3.2 mg/dL 2.5-4. 9 Not Available [facility] ([facility]) [address] [facility], [place], [address], 08/03/2024 11:48:27 08/04/19 25 08/03/2024 URIC ACID uric acid 4.2 mg/dL 2.6-6. 0 Not Available [facility] ([facility]) [address] [facility], [place], [address], 08/03/2024 12:13:16 08/04/19 25 08/04/2024 PTH, INTAC T PTH, intact 59 pg/mL 15-65 Perfo rmed at: - [facility] [address] [address] Lab Direc tor: Cristian sloan PhD, Phone : [phone] Not Available [facility] ([facility]) [address] [facility], [place], [address], 08/04/2024 11:13:13 04/07/25/2024 CT, abdom en + pelvi s, w/o contr ast No observ ation record ed. [facility] (Med Record) [address], [place], [address], 07/27/2024 09:03:28 Result Notes None recorded. Problems Name Problem SNOMED Code Status Onset Date Resolution Date Notes Provider Name and Address Organization Details Recorded Time Ureteric stone 55425443 Active 2024 KACY DON MD [address], [place], [address] , [place] [facility] & [place] 5 10:22:34 Essential hypertension 17329637 Active [address], [place], [address] , [place] [facility] & [place] 4 09:01:10 Dyslipidemia 126987015 Active [address], [place], [address] , [place] [facility] & [place] 4 09:03:02 Iron deficiency 63469047 Active [address], [place], [address] , [place] [facility] [facility] & [place] 4 09:03:05 Hyperparathyr oidism 21506842 Active [address], [place], [address] , [place] [facility] & [place] 4 09:03:12 Obesity 111523398 Active [address], [place], [address] , [place] [facility] [facility] & [place] 4 09:03:25 Disorder of function of stomach 450016331 Active [address], [place], [address] , [facility] & [place] 4 14:08:55 Obstructive sleep apnea syndrome 11970635 Active 2023 RICC[address]O Lozano [address], [place], [address] , [facility] & [place] 4 14:09:55 Problem Notes None recorded. Procedures Surgical History Date Name Laterality Status Provider Name and Address Organization Details Recorded Time Cystoscopy-Fem krissy completed KACY DON MD [address], [place], [address], [facility] & [place] 08/03/2024 10:23:31 biopsy of breast completed Giovanna Birmingham [facility] & [place] 09/07/2023 11:16:50 extraction of wisdom tooth completed Giovanna Birmingham [facility] & [place] 09/07/2023 11:16:57 hernia repair completed RICCARDO Bhandari [address], [place], [address], [facility] & [place] 09/07/2023 14:09:37 Imaging Results None recorded. Procedure [...] Updated DateTime 5 172.72 cm 44.7 kg/m2 541065. 16 g 97 % 97 % 67 /min 132 mm[Hg] 74 mm[Hg] Deana Mabry [facility] & [place] 5 10:06:27 Date Recorded Body height Body mass index (BMI) Body weight Body temperature Heart rate Systolic blood pressure Diastolic blood pressure Provider Name and Address Organization Details Last Updated DateTime 4 172.72 cm 49.5 kg/m2 261823. 32 g 98.3 [degF] 60 /min 166 mm[Hg] 85 mm[Hg] Kasie Caballero [facility] & [place] 4 13:48:51 Social History None recorded. Functional Status Question Answer Note LastModified by Organization D etails LastModified Time What is your level of alcohol consumption? None [email or web address] Information not available 09/07/2023 Mental Status None [...] SNOMED-CT Code Diagnosis ICD10 Code Diagnosis Note [id number] RICCARDO Lozano [facility] [address] [facility] [address], [place] [address] 09/07/2023 11:31:58 09/07/2023 14:21:54 Essential hypertension 63508490 I10 Dyslipidemia 118660648 E 78.5 Iron deficiency 96782159 E61.1 Hyperparathyroidism 6699 9008 E21.3 Obesity 514008686 E66.9 Weight loss surgery options discussed at [...] testing has been completed Pre-surger y evaluation 376682885 Z01.818 Disorder o f function of stomach 700687015 K31.89 Obstructiv e sleep apnea syndrome 94572053 G47.[id number], LD [facility] [address] [facility] [address], [place] [address] 09/07/2023 15:04:06 09/08/2023 10:44:50 Essential hypertension 44510109 I10 Obstructiv e sleep apnea syndrome 69634148 G47.33 Morbid obesity 365755642 E66.01 BMI 49.[id number], LD [facility] [address] [facility] [address], [place] [address] 10/08/2023 11:42:36 10/08/2023 13:00:11 Essential hypertension 98884725 I10 Obstructiv e sleep apnea syndrome 75232996 G47.33 Morbid obesity 542768836 E66.01 Unintentio nal weight gain 8621586226 88488 R63.5 [id number] KACY DON MD [facility]-1 00 [address] [place] [address] 08/03/2024 09:38:35 08/03/2024 10:29:15 Ureteric stone 58436255 N20.1 Health Concerns Section Related Observation LastModified by Organization Detai ls LastModified Time None Recorded Concern Status LastModified by Organization Details LastModified Time None Recorded Advance Directives Directive None Recorded Payers Insurance Date Sequence Insurance Name Policy Number Policy Crocker Covered Member ID Crocker Member ID Guarantor Name 08/03/2024 1 [facility] ([place]ICARE [place]PL[place]ANTAGE - HMO) [id number] María Liriano [id number] María Stoddardall 08/03/2024 2 [employer] [facility] (MEDICAID HMO) María Liriano [id number] María Liriano 08/03/2024 1 [place] [facility] MEDIBLUE ACCESS (MEDICARE REPLACEMENT REGIONAL PPO) [id number] María Liriano [id number] María Liriano Notes Date Note Type Note [...] physical hunger, makes me happy. RICCARDO Lozano [address], [place], [address], [facility] - [place] 09/07/2023 14:48:49 4 text/html Intake Template RDN [...] skipsL: Eats out, chicken sand, burger, pizzaD: [place], chicken and dumplins, spaghettiSnacks: chips Eating out: [...] monitor PRN. MARÍA SHELL RD, LD [address], [place], [address], [facility] & [place] 09/07/2023 16:35:42 4 text/html RDN met w/ [...] numbness with walking. EWELINA MON RDN, LD [address] [facility], [place], [address], [facility] & [place] 10/08/2023 13:58:45 5 text/html 08/03/24 CC: [id number] present as new patient for cystoscopy w/L [...] will be performed using a kit from [employer]. An ultrasound will be ordered six weeks post-procedure to ensure there is no scar tissue causing kidney blockage. A follow-up appointment is scheduled in six months, with a plain X-ray to be done prior to the visit. 07/28/24 L URS, laser, L stent07/27/24 Cr 1.3, GFR 50, Hgb 9.1, Hct 30.704/ CT abd/pel w/o ([facility]): several bilateral renal collecting system calcification's, no [...] is like a cyst KACY DON MD [address], [place], [address], [facility] - [place] 08/03/2024 14:16:08 OBGyn Episode No OBEpisode recorded.
--- OUTSIDE RECORDS SUMMARY | 2024-09-14 11:02 | XMS_ITS | Continuity of Care Document ---
Author Organization [facility] Address [address] [facility] [address] [place] [address] Care Team Providers Care Premium Card Cancellation Clerk Name Role Phone ROSA RITTER Primary Care [...] [email or web address] [facility], [address], [address], [place], [address], 08/10/2024 13:41:56 uric acid, serum or plasma 2024 025 [email or web address] [facility], [address], [address], [place], [address], 08/10/2024 13:41:57 phosphor us, serum or plasma 2024 025 DREA [facility], [address], [address], [place], [address], 08/03/2024 11:48:27 Referral None recorded . Procedures None recorded . Surgeries None recorded . Imaging US, renal [address] (Centralized Scheduling), [address], [place], [address], 08/03/2024 10:23:14 XR, kidney + ureter + bladder [address] (Centralized Scheduling), [address], [place], [address], 08/03/2024 10:23:14 Medication Orders None recorded . Patient TargetsNo targets recorded. Patient InstructionsNo instructions recorded. Reason for Referral None Reported. Results Created Date Observation Date Name Description Value Unit Range Abnormal Flag Note LastModifiedBy Organization Detail LastModifiedTime 07/27/19 25 07/25/2024 CT, abdom en + pelvi s, w/o contr ast No observ ation record ed. [facility] (Med Record) [address], [place], [address], 07/27/2024 09:03:28 Result Notes None recorded. Problems Name Problem SNOMED Code Status Onset Date Resolution Date Notes Provider Name and Address Organization Details Recorded Time Ureteric stone 27360202 Active 2024 KACY DON MD [address], [place], [address] , [place] [facility] - [place] [facility] [place] 10:22:34 Essential hypertension 99307484 Active 2023 RICCARDO Lozano [address], [place], [address] , [facility] - [facility] & [place] 4 09:01:10 Dyslipidemia 362426884 Active [address], [facility] [address] , [facility] - [facility] & [place] 4 09:03:02 Iron deficiency 38384285 Active [address], [place] [address] , [facility] - [facility] & [place] 4 09:03:05 Hyperparathyr oidism 30147512 Active [address], [facility] [address] , [facility] - [facility] & [place] 4 09:03:12 Obesity 106894468 Active [address], [facility] [address] , [facility] - [facility] & [place] 4 09:03:25 Disorder of function of stomach 297898492 Active [address], [facility] [address] [facility] - [facility] & [place] 4 14:08:55 Obstructive sleep apnea syndrome 72727242 Active [address], [facility] [address] , [facility] - [facility] & [place] 4 14:09:55 Problem Notes None recorded. Procedures Surgical History Date Name Laterality Status Provider Name and Address Organization Details Recorded Time 5 Cystoscopy-Fem krissy completed KACY DON MD [address], [facility] [address], [place] - [facility] & [place] 08/03/2024 10:23:31 biopsy of breast completed Giovanna Birmingham [facility] & [place] 09/07/2023 11:16:50 extraction of wisdom tooth completed Giovanna Birmingham [facility] & [place] 09/07/2023 11:16:57 hernia repair completed RICCARDO Bhandari [address], [place], [address], [facility] & [place] 09/07/2023 14:09:37 Imaging Results None recorded. Procedure [...] Updated DateTime 5 172.72 cm 44.7 kg/m2 939573. 16 g 97 % 97 % 67 /min 132 mm[Hg] 74 mm[Hg] Deana Mabry [place] [facility] & [place] 5 10:06:27 Social History None recorded. Functional Status Question Answer Note LastModified by Organization D etails LastModified Time What is your level of alcohol consumption? None [email or web address] Information not available 09/07/2023 Mental Status None [...] SNOMED-CT Code Diagnosis ICD10 Code Diagnosis Note [id number] KACY DON MD [facility]-[address] [place] [address] 08/03/2024 09:38:35 08/03/2024 10:29:15 Ureteric stone 10991875 N20.1 Health Concerns Section Related Observation LastModified by Organization Detai ls LastModified Time None Recorded Concern Status LastModified by Organization Details LastModified Time None Recorded Payers Encounter Date Sequence Insurance Name Policy Number Policy Crocker Covered Member ID Corcker Member ID Guarantor Name 08/03/2024 2 [employer] [facility] (MEDICAID HMO) María Liriano [id number] María Liriano 08/03/2024 1 [facility] (MEDICARE REPLACEMENT/A DVANTAGE - HMO) [id number] María Liriano [id number] María Liriano Notes Date Note Type Note Provider Name and Address Organization Details Recorded Time 08/03/2024 text/html 08/03/24 CC: [id number] present as new patient for cystoscopy w/L [...] will be performed using a kit from [employer]. An ultrasound will be ordered six weeks post-procedure to ensure there is no scar tissue causing kidney blockage. A follow-up appointment is scheduled in six months, with a plain X-ray to be done prior to the visit. 07/28/24 L URS, laser, L stent07/27/24 Cr 1.3, GFR 50, Hgb 9.1, Hct 30.704 CT abd/pel w/o ([facility]): several bilateral renal collecting system calcification's, [...] is like a cyst KACY DON MD [address], [place], [address], [facility] - [place] & [place] 08/03/2024 14:16:08 OBGyn Episode No OBEpisode recorded.
[2024-09-14] MEDS: IRON SUCROSE COMPLEX 200 MG in 0.9 % SODIUM CHLORIDE 100 ML 220 MG IV (11:07)
[2024-09-14] MEDS: SODIUM CHLORIDE 0.9% 50ML BAG 50 ML IV (11:08)
[2024-09-14 11:10] VITALS: BP 123/76; PULSE 66; RESP 18; O2SAT 97
[2024-09-14 11:49] VITALS: BP 125/63; PULSE 69; RESP 18; O2SAT 97
== END 2024-09-14 11:49 | disposition home or self-care (01) ==
LOC: INF 10:58
PROVIDERS: PCP Internal Medicine Adolescent Medicine; Visit Provider Nurse Practitioner
DX: D50.9 Iron deficiency anemia, unspecified (principal)
CPT/HCPCS: 96365; J1756

== ENCOUNTER 2024-09-19 13:59 | Day surgery (SDC) | payer MEDICARE, OTHER, SELFPAY ==
[2024-09-19 14:11] VITALS: BP 144/82; PULSE 65; RESP 16; O2SAT 98; BMI 44.1
[2024-09-19] MEDS: DEXAMETHASONE 10MG/ML 1ML VIAL 10 MG (14:28)
[2024-09-19 14:29] VITALS: BP 154/83; PULSE 62; RESP 18; O2SAT 96
[2024-09-19] MEDS: LIDOCAINE 1% 5ML PF VIAL 5 ML (14:29)
[2024-09-19 14:30] VITALS: BP 154/83; PULSE 64; RESP 18; O2SAT 96
[2024-09-19 14:34] VITALS: BP 140/86; PULSE 64; RESP 18; O2SAT 96
[2024-09-19] MEDS: IOPAMIDOL-200 (41%);10ML VIAL 3 ML IV (14:36)
--- NOTE | 2024-09-19 14:56 | EXP.PAIN.PRO ---
Procedure Date: 09/19/24 Time: 14:20 Anesthesiologist:: Jero Bullock CRNA Complications:: None Pre-procedure Diagnosis:: Degenerative disc lumbar spine multilevels. Lumbar radiculopathy. Lumbar disc bulge L4-5, L5-S1 Post-procedure Diagnosis:: Same Indications for Procedure:: Patient is a very pleasant 49-year-old female comes our clinic today for a left L4-5 and L5-S1 transforaminal epidural steroid injection. Patient describes low lumbar back pain as well as left hip and leg radicular symptoms to the foot. She reports responding well to the same injection previously. She rates her pain 7/10. Procedure Details:: Details of the procedure explained to the patient. The patient was taken to procedure room placed in the prone position. The area over the lumbar spine was cleansed using chlorhexidine as a cleansing solution. Using fluoroscopy guidance markers were placed over the left border of the L4-5 and L5-S1 vertebral body. At each marker the skin and subcutaneous tissue was anesthetized using 1% lidocaine and a 25-gauge needle. At this time using fluoroscopy guidance 3 and half inch 22-gauge spinal needle was used to access the upper one third of the L4 for 5 and L5-S1 foramen. Using fluoroscopy guidance in the lateral position needle position was confirmed using 0.5 mL of contrast dye. Good spread was noted in the epidural space at each level. After negative aspiration 2 mL of 1% lidocaine and 40 mg of Depo-Medrol was injected at each level. Patient tolerated procedure without difficulty. There are no complications. Plan and Disposition:: Patient was discharged without incident.
== END 2024-09-19 14:34 | disposition home or self-care (01) ==
LOC: SC.PAINP 14:01
PROVIDERS: PCP Nurse Practitioner; Visit Provider Nurse Practitioner Family
DX: M51.16 Intervertebral disc disorders with radiculopathy, lumbar region (principal); M51.17 Intervertebral disc disorders with radiculopathy, lumbosacral region; I11.0 Hypertensive heart disease with heart failure; I50.9 Heart failure, unspecified; J45.909 Unspecified asthma, uncomplicated; E78.5 Hyperlipidemia, unspecified; F41.9 Anxiety disorder, unspecified; E21.3 Hyperparathyroidism, unspecified; D64.9 Anemia, unspecified; Z79.899 Other long term (current) drug therapy; Z79.890 Hormone replacement therapy; Z79.1 Long term (current) use of non-steroidal anti-inflammatories (NSAID)
CPT/HCPCS: 64483; 64484; J1100; J2003; Q9966

== ENCOUNTER 2024-09-21 14:51 | Outpatient (CLI) | payer MEDICARE, OTHER, SELFPAY ==
--- NOTE | 2024-09-21 14:55 | US_ITS ---
FINAL REPORT TECHNIQUE: Real-time grayscale and color ultrasound of the thyroid was performed. CLINICAL HISTORY: FOLLOW UP THYROID NODULE COMPARISON: 09/01/2023 FINDINGS: The thyroid gland measures 48 x 18 x 18 mm on the right and 42 x 16 x 15 mm on the left. The isthmus measures 3 mm. The parenchyma is unremarkable . Nodules: Dominant right nodule now measures 27 x 14 mm, ovoid heterogeneous, essentially stable TR 3 nodule. IMPRESSION: Essentially stable TR 3 nodule on the right. If not already obtained, biopsy recommended per TI-RADS criteria. Reviewed, Interpreted and Dictated by Hoang Castañeda MD Transcribed by Kelly Woodward Authenticated and . [facility]
--- NOTE | 2024-09-21 14:56 | MM_ITS ---
PROCEDURE INFORMATION: Exam: MG Bilateral Screening 3D Mammography Exam date and time: 09/21/2024 3:05 PM Age: 49 years old Clinical indication: Screening mammogram TECHNIQUE: Imaging protocol: Bilateral Screening tomosynthesis and 2D mammography including computer-aided detection (CAD) when performed. COMPARISON: 1. MG MM DIG SCREENING MAMM BI W/CAD 12/30/2022 8:13 AM 2. MG MM DIG SCREENING MAMM BI W/CAD 12/18/2020 10:30 AM 3. MG MM MAMMO DIGITAL SCREENING W CAD BILAT 11/19/2018 12:53 PM 4. MG DMSB DIGITAL MAMM-SCREEN BILATERAL 04/03/2010 4:39 PM FINDINGS: MAMMOGRAPHY: Breast composition: There are scattered areas of fibroglandular density. Mass: Stable benign-appearing subcentimeter nodules are present in the bilateral breast. No new or morphologically suspicious nodule has developed to suggest malignancy. Architectural distortion: No new or suspicious architectural distortion. Calcifications: No new or suspicious calcifications are present Asymmetric density: No new or suspicious asymmetric density is present Skin thickening: None. Axillary adenopathy: None. IMPRESSION: No mammographic evidence of malignancy. Recommend annual screening mammography unless otherwise clinically indicated. ASSESSMENT: BI-RADS category 2: Benign.
--- OUTSIDE RECORDS SUMMARY | 2024-09-21 15:15 | XMS_ITS | Data Portability ---
Author Organization [place] - [place] & [place] [facility] ADMIN Address [address] [place] [address] Care Team Providers Care Hydroelectric Production Technician Name Role Phone ROSA RITTER Primary Care [...] [email or web address] [facility], [address], [address], [place], [address], 08/10/2024 13:41:56 uric acid, serum or plasma 2024 025 [email or web address] [facility], [address], [address], [place], [address], 08/10/2024 13:41:57 phosphoru s, serum or plasma 2024 025 [email or web address] [facility], [address], [address], [place], [address], 08/03/2024 11:48:27 CBC w/ auto diff 2023 024 [email or web address] [facility], [address], [address], [place], [address], 10/01/2023 14:03:55 iron + TIBC + ferritin, serum 2023 024 [email or web address] [facility], [address], [address], [place], [address], 10/01/2023 14:03:55 copper, serum or plasma 2023 024 [email or web address] [facility], [address], [address], [place], [address], 10/01/2023 14:03:57 CMP, serum or plasma 2023 024 [email or web address] [facility], [address], [address], [place], [address], 10/01/2023 14:03:55 HbA1c (hemoglob in A1c), blood 2023 024 [email or web address] [facility], [address], [address], [place], [address], 10/01/2023 14:03:55 lipid panel, serum 2023 024 [email or web address] [facility], [address], [address], [place], [address], 10/01/2023 14:03:56 vitamin D, 25-hydrox y, total, serum 2023 024 [email or web address] [facility], [address], [address], [place], [address], 10/01/2023 14:03:56 vitamin A (retinol) , serum 2023 024 [email or web address] [facility], [address], [address], [place], [address], 10/01/2023 14:03:56 vitamin E, serum 2023 024 [email or web address] [facility], [address], [address], [place], [address], 10/01/2023 14:03:56 PTH (parathyr oid hormone), intact, serum or plasma 2023 024 [email or web address] [facility], [address], [address], [place], [address], 10/01/2023 14:03:56 TSH + free T4, serum 2023 024 [email or web address] [facility], [address], [address], [place], [address], 10/01/2023 14:03:56 folate, serum 2023 024 [facility], [address], [address], [place], [address], 10/01/2023 14:03:56 methylmal hang, QN, serum or plasma 2023 024 [email or web address] [facility], [address], [address], [place], [address], 10/01/2023 14:03:57 thiamine, QN, blood 2023 024 [email or web address] [facility], [address], [address], [place], [address], 10/01/2023 14:03:57 Referral None recorded. Procedures None recorded. Surgeries esophagog astroduod enoscopy (SURG) 2023 024 [email or web address] Taty Richards MD, [address], [address], [place], [address], 01/04/2024 13:17:44 Imaging US, renal 2024 025 [email or web address] [facility] (Centralized Scheduling), [address], [place], [address], 09/20/2024 16:28:08 XR, kidney + ureter + bladder 2024 025 [email or web address] [facility] (Centralized Scheduling), [address] , [place], [address], 08/03/2024 10:23:14 XR, chest, 2 view 2023 024 [facility] (Centralized Scheduling), [address], [place], [address], 10/01/2023 14:03:28 electroca rdiogram, routine ECG, 12 leads min 2023 024 [email or web address] Not available 10/01/2023 13:49:45 Medication Orders None recorded. Patient Targets Encounter Date Encounter Id Patient Goals Patient Target Last Modified By Organization Details Last Modified Time 09/07/2023 [id number] 1. Start keeping food records2. Decrease eating out to 2-3 times a week3. Drink 64 oz fluid/day, decrease OJ to 4oz4. Physical activity 3 times a week for 15 minutes5. Review manual for meal and snack ideas [email or web address] Not available 09/07/2023 16:35:30 Patient InstructionsNo instructions recorded. Reason for Referral None Reported. Results Created Date Observation Date Name Description Value Unit Range Abnormal Flag Note LastModifiedBy Organization Detail LastModifiedTime 08/04/1908/03/2024 CALCI UM TOTAL calcium 8.6 mg/dL 8.5-10 .5 Not Available [facility] ([facility]) [address] , [place], [address], 08/03/2024 11:48:26 08/04/19 25 08/03/2024 PHOSP HOROU S phosphorus 3.2 mg/dL 2.5-4. 9 Not Available [facility] ([facility]) [address] [facility], [place], [address], 08/03/2024 11:48:27 08/04/19 25 08/03/2024 URIC ACID uric acid 4.2 mg/dL 2.6-6. 0 Not Available [facility] ([facility]) [address] , [place], [address], 08/03/2024 12:13:16 08/04/19 25 08/04/2024 PTH, INTAC T PTH, intact 59 pg/mL 15-65 Perfo rmed at: - [facility] [place] [address] Lab Direc tor: Cristian sloan PhD, Phone : [phone] Not Available [facility] ([facility]) [address] , [place], [address], 08/04/2024 11:13:13 04/16/20 25 07/25/2024 CT, abdom en + pelvi s, w/o contr ast No observ ation record ed. [facility] (Med Record) [address], [place], [address], 07/27/2024 09:03:28 Result Notes None recorded. Problems Name Problem SNOMED Code Status Onset Date Resolution Date Notes Provider Name and Address Organization Details Recorded Time Ureteric stone 02636907 Active 2024 KACY DON MD [address], [place], [address] , [place] - [facility] & [place] 5 10:22:34 Essential hypertension 45582732 Active [address], [place], [address] , [place] - [facility] & [place] 4 09:01:10 Dyslipidemia 605097048 Active [address], [place], [address] , [place] [facility] [facility] & [place] 4 09:03:02 Iron deficiency 79364408 Active [address], [place], [address] , [place] [facility] [facility] & [place] 4 09:03:05 Hyperparathyr oidism 12496888 Active [address], [place], [address] , [place] [facility] & [place] 4 09:03:12 Obesity 805916071 Active [address], [place], [address] , [place] [facility] & [place] 4 09:03:25 Disorder of function of stomach 734351011 Active [address], [place], [address] , [facility] & [place] 4 14:08:55 Obstructive sleep apnea syndrome 97411220 Active 2023 RICC[address] Lozano [address], [place], [address] , [facility] & [place] 4 14:09:55 Problem Notes None recorded. Procedures Surgical History Date Name Laterality Status Provider Name and Address Organization Details Recorded Time 5 Cystoscopy-Fem krissy completed KACY DON MD [address], [place], [address], [facility] & [place] 08/03/2024 10:23:31 biopsy of breast completed Giovanna Birmingham [facility] & [place] 09/07/2023 11:16:50 extraction of wisdom tooth completed Giovanna Birmingham [facility] & [place] 09/07/2023 11:16:57 hernia repair completed RICCARDO Bhandari [address], [place], [address], [facility] & [place] 09/07/2023 14:09:37 Imaging Results None recorded. Procedure [...] Updated DateTime 5 172.72 cm 44.7 kg/m2 661212. 16 g 97 % 97 % 67 /min 132 mm[Hg] 74 mm[Hg] Deana Mabry [facility] & [place] 5 10:06:27 Date Recorded Body height Body mass index (BMI) Body weight Body temperature Heart rate Systolic blood pressure Diastolic blood pressure Provider Name and Address Organization Details Last Updated DateTime 4 172.72 cm 49.5 kg/m2 285035. 32 g 98.3 [degF] 60 /min 166 mm[Hg] 85 mm[Hg] Kasie Caballero [facility] & [place] 4 13:48:51 Social History None recorded. Functional Status Question Answer Note LastModified by Organization D etails LastModified Time What is your level of alcohol consumption? None [email or web address] Information not available 09/07/2023 Mental Status None [...] Diabetes N Bleeding Disorder N Hyperthyroidism Y Depression Y [...] SNOMED-CT Code Diagnosis ICD10 Code Diagnosis Note [id number] RICCARDO L[address] [facility] [address] [facility] [address], [place] [address] 09/07/2023 11:31:58 09/07/2023 14:21:54 Essential hypertension 63450391 I10 Dyslipidemia 418890302 E 78.5 Iron deficiency 28055530 E61.1 Hyperparathyroidism 6699 9008 E21.3 Obesity 418060228 E66.9 Weight loss surgery options discussed at [...] testing has been completed Pre-surger y evaluation 099772743 Z01.818 Disorder o f function of stomach 328447261 K31.89 Obstructiv e sleep apnea syndrome 76945213 G47.[id number], LD [facility] [address] [facility] [address] [place] [address] 09/07/2023 15:04:06 09/08/2023 10:44:50 Essential hypertension 56305321 I10 Obstructiv e sleep apnea syndrome 10463724 G47.33 Morbid obesity 988955413 E66.01 BMI 49.[id number], LD [facility] [address] [facility] [address] [facility] [place] [address] 10/08/2023 11:42:36 10/08/2023 13:00:11 Essential hypertension 01719238 I10 Obstructiv e sleep apnea syndrome 88276995 G47.33 Morbid obesity 090918070 E66.01 Unintentio nal weight gain 2562401463 58938 R63.5 [id number] KACY DON MD [facility] [place] [address] 08/03/2024 09:38:35 08/03/2024 10:29:15 Ureteric stone 50101489 N20.1 Health Concerns Section Related Observation LastModified by Organization Detai ls LastModified Time None Recorded Concern Status LastModified by Organization Details LastModified Time None Recorded Advance Directives Directive None Recorded Payers Insurance Date Sequence Insurance Name Policy Number Policy Crocker Covered Member ID Crocker Member ID Guarantor Name 08/03/2024 1 [facility] ([place]ANTAGE - HMO) [id number] María Liriano [id number] María Liriano 08/03/2024 2 [employer]ETNA [facility] (MEDICAID HMO) María Liriano [id number] María Liriano 08/03/2024 1 [place] [facility] (MEDICARE REPLACEMENT REGIONAL O) [id number] María Liriano [id number] María Liriano Notes Date Note Type Note [...] physical hunger, makes me happy. RICCARDO Lozano [address], [place], [address], [facility] [place] [facility] [place] 09/07/2023 14:48:49 4 text/html Intake Template RDN [...] skipsL: Eats out, chicken sand, burger, pizzaD: [place], chicken and dumplins, spaghettiSnacks: chips Eating out: [...] monitor PRN. MARÍA SHELL RD, LD [address] [facility], [place], [address], [facility] & [place] 09/07/2023 16:35:42 4 text/html RDN met w/ [...] with walking. EWELINA MON RDN, LD [address] [facility], [place], [address], [facility] & [place] 10/08/2023 13:58:45 5 text/html 08/03/24 CC: [id number]-xxi-female present as new patient for cystoscopy w/L [...] will be performed using a kit from [employer]. An ultrasound will be ordered six weeks post-procedure to ensure there is no scar tissue causing kidney blockage. A follow-up appointment is scheduled in six months, with a plain X-ray to be done prior to the visit. 07/28/24 L URS, laser, L stent07/27/24 Cr 1.3, GFR 50, Hgb 9.1, Hct 30.704/15/25 CT abd/pel w/o ([facility]): several bilateral renal collecting system [...] is like a cyst KACY DON MD [address], [place], [address], [facility] - [facility] - [place] & [place] 08/03/2024 14:16:08 OBGyn Episode No OBEpisode recorded.
--- OUTSIDE RECORDS SUMMARY | 2024-09-21 15:17 | XMS_ITS | Encounter Summary ---
Author Organization [place] [address] Care Team Providers Care Bottle Packing Machine Cleaner Name Role Phone Mónica Adler APRN Primary Care Provider [phone] Reason for Visit * Reason Onset Date Comments Medication Refill 09/08/2024 Encounter Details Date Type Department Care Team (Late st Contact Info) Description 09/08/2024 Refill [facility] [address] 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 Answer Date of Assessment Author No 08/18/2023 9:51 AM EDT Kannan Zimmerman CCMA * Is the person blind or does he/she have serious difficulty seeing even when wearing glasses? Answer Date of Assessment Author No 08/18/2023 9:51 AM Kannan Gimenez CCMA * Does this person have serious difficulty walking or climbing stairs? Answer Date of Assessment Author No 08/18/2023 9:51 AM Kannan Gimenez CCMA * Does this person have difficulty dressing or bathing? Answer Date of Assessment Author No 08/18/2023 9:51 AM Kannan Gimenez CCMA * Because of a physical, mental or emotional condition, does this person have difficulty doing errands alone such as visiting a doctor's office or shopping? Answer Date of Assessment Author No 08/18/2023 9:51 AM Kannan Gimenez CCMA documented as of this encounter Mental Status * Because of a physical, mental or emotional condition, does this person have serious difficulty concentrating, remembering or making decisions? Answer Entry Date Author No 08/18/2023 9:51 AM Kannan Gimenez CCMA documented in this encounter Ordered Prescriptions Prescription Sig Dispense Quantity Refills Last Filled Start Date End Date albuterol (PROVENTIL HFA;VENTOLIN HFA) 90 mcg/actuation Inhl HFA Aerosol InhalerIndications :History of wheezing Inhale 2 Puffs into the lungs every 4 hours as needed. for wheezing 18 g 6 09/08/2024 documented in this encounter Plan of Treatment Upcoming Encounters Date Type Department Care Team (Late st Contact Info) Description 09/26/2024 9:15 AM EDT Office Visit [facility] [place] [facility] [address] [place] [address] Móniac Adler APRN [address] [place] [address] documented as of this encounter Goals Goal Patient Goal Type Associated Problems Recent Progress Patient-Stated? Author Blood Pressure < 140/90 Blood Pressure 122/78(2024 9:53 AM EST) No Mohini Mendiola, RMA Maintain a healthy diet, exercise regularly and maintain an ideal body weight General No Mohini Mendiola, RMA documented as of this encounter Visit Diagnoses Diagnosis History of wheezing Personal history of other diseases of respiratory system Generalized anxiety disorder documented in this encounter Discontinued Medications Medication Sig Discontinue Reason Start Date End Da te albuterol (PROVENTIL HFA;VENTOLIN HFA) 90 mcg/actuation Inhl HFA Aerosol InhalerIndications:Hist ory of wheezing Inhale 2 Puffs into the lungs every 4 hours as needed. for wheezing Reorder 07/31/2024 09/08/2024 documented as of this encounter Care Teams Bottle Packing Machine Cleaner Relationship Specialty Start Date End Date Mónica Adler APRN [address] [place], [place] [address] PCP - General Nurse Practitioner-Family 12/08/16 documented as of this encounter
--- OUTSIDE RECORDS SUMMARY | 2024-09-21 15:17 | XMS_ITS | Continuity of Care Document ---
Author Organization [facility] Address [address] [facility] [address] [place] [address] Care Team Providers Care Assurance Sourcing Manager Name Role Phone ROSA RITTER Primary Care Provider [phone] Assessment Encounter Date Assessment Date Assessment LastModified [...] [email or web address] [facility], [address], [address], [place], [address], 08/10/2024 13:41:56 uric acid, serum or plasma 2024 025 [email or web address] [facility], [address], [address], [place], [address], 08/10/2024 13:41:57 phosphor us, serum or plasma 2024 025 [email or web address] [facility], [address], [address], [place], [address], 08/03/2024 11:48:27 Referral None recorded . Procedures None recorded . Surgeries None recorded . Imaging US, renal 2024 025 [email or web address] [facility] (Centralized Scheduling), [address], [place], [address], 09/20/2024 16:28:08 XR, kidney + ureter + bladder 2024 025 [email or web address] [facility] (Centralized Scheduling), [address], [place], [address], 08/03/2024 10:23:14 Medication Orders None recorded . Patient TargetsNo targets recorded. Patient InstructionsNo instructions recorded. Reason for Referral None Reported. Results Created Date Observation Date Name Description Value Unit Range Abnormal Flag Note LastModifiedBy Organization Detail LastModifiedTime 07/27/1907/25/2024 CT, abdom en + pelvi s, w/o contr ast No observ ation record ed. [facility] (Med Record) [address], [place], [address], 07/27/2024 09:03:28 Result Notes None recorded. Problems Name Problem SNOMED Code Status Onset Date Resolution Date Notes Provider Name and Address Organization Details Recorded Time Ureteric stone 22255602 Active 2024 KACY DON MD [address], [place], [address] , [facility] - [place] - [place] & [place] 10:22:34 Essential hypertension 37787523 Active 2023 [address], [place], [address] , [place] - [facility] & [place] 4 09:01:10 Dyslipidemia 200065138 Active [address], [facility] [address] [facility] [place] [facility] & [place] 4 09:03:02 Iron deficiency 74646603 Active [address], [address] , [place] - [facility] & [place] 4 09:03:05 Hyperparathyr oidism 08858255 Active [address], [facility] [address] , [place] - [facility] & [place] 4 09:03:12 Obesity 501278574 Active [address], [facility] [address] , [place] - [facility] & [place] 4 09:03:25 Disorder of function of stomach 907968023 Active [address], [facility] [address] , [place] - [facility] & [place] 4 14:08:55 Obstructive sleep apnea syndrome 34157784 Active [address], [facility] [address] , [place] - [facility] & [place] 4 14:09:55 Problem Notes None recorded. Procedures Surgical History Date Name Laterality Status Provider Name and Address Organization Details Recorded Time 5 Cystoscopy-Fem krissy completed KACY DON MD [address], [facility] [address], [place] [facility] & [place] 08/03/2024 10:23:31 biopsy of breast completed Giovanna Birmingham [facility] & [place] 09/07/2023 11:16:50 extraction of wisdom tooth completed Giovanna Birmingham [facility] & [place] 09/07/2023 11:16:57 hernia repair completed RICCARDO Bhandari [address], [place], [address], [facility] & [place] 09/07/2023 14:09:37 Imaging Results None recorded. Procedure [...] Updated DateTime 5 172.72 cm 44.7 kg/m2 083903. 16 g 97 % 97 % 67 /min 132 mm[Hg] 74 mm[Hg] Deana Mabry [place] [facility] & [place] 5 10:06:27 Social History None recorded. Functional Status Question Answer Note LastModified by Organization D etails LastModified Time What is your level of alcohol consumption? None [email or web address] Information not available 09/07/2023 Mental Status None [...] SNOMED-CT Code Diagnosis ICD10 Code Diagnosis Note [id number] KACY DON MD [facility] [place] [address] 08/03/2024 09:38:35 08/03/2024 10:29:15 Ureteric stone 78909589 N20.1 Health Concerns Section Related Observation LastModified by Organization Detai ls LastModified Time None Recorded Concern Status LastModified by Organization Details LastModified Time None Recorded Payers Encounter Date Sequence Insurance Name Policy Number Policy Crocker Covered Member ID Crocker Member ID Guarantor Name 08/03/2024 2 AETNA [facility] (MEDICAID HMO) María Liriano [id number] María Liriano 08/03/2024 1 [facility] (MEDICARE REPLACEMENT/A DVANTAGE - HMO) [id number] María Liriano [id number] María Liriano Notes Date Note Type Note Provider Name and Address Organization Details Recorded Time 08/03/2024 text/html 08/03/24 CC: [id number]-ueo-female present as new patient for cystoscopy w/L [...] will be performed using a kit from [employer]. An ultrasound will be ordered six weeks post-procedure to ensure there is no scar tissue causing kidney blockage. A follow-up appointment is scheduled in six months, with a plain X-ray to be done prior to the visit. 07/28/24 L URS, laser, L stent07/27/24 Cr 1.3, GFR 50, Hgb 9.1, Hct 30.704 CT abd/pel w/o ([facility]): several bilateral renal collecting system calcification's, [...] is like a cyst KACY DON MD [address], [place], [address], [facility] & [place] 08/03/2024 14:16:08 OBGyn Episode No OBEpisode recorded.
--- OUTSIDE RECORDS SUMMARY | 2024-09-21 15:17 | XMS_ITS | Encounter Summary ---
Author Organization [place] [address] Care Team Providers Care Makeup Sales Consultant Name Role Phone Mónica Adler APRN Primary Care Provider [phone] Reason for Visit * Reason Onset Date Comments Medication Refill 07/30/2024 Encounter Details Date Type Department Care Team (Late st Contact Info) Description 07/30/2024 Refill [facility] [address] [place] [address] Mónica Adler APRN [address] [facility] [place] [address] Medication Refill Social History Tobacco Use [...] as needed. for wheezing 18 g 6 07/31/2024 documented in this encounter Plan of Treatment Upcoming Encounters Date Type Department Care Team (Late st Contact Info) Description 09/26/2024 9:15 AM EDT Office Visit [facility] [place] [facility] [address] [place] [address] Mónica Adler APRN [address] [place] [address] documented as of this encounter Goals Goal [...] history of other diseases of respiratory system documented in this encounter Discontinued Medications Medication Sig Discontinue Reason Start Date End Da te albuterol (PROVENTIL HFA;VENTOLIN HFA) 90 mcg/actuation Inhl HFA Aerosol InhalerIndications:Hist ory of wheezing Inhale 2 Puffs into the lungs every 4 hours as needed. for wheezing Reorder 06/29/2024 07/30/2024 documented as of this encounter Care Teams Makeup Sales Consultant Relationship Specialty Start Date End Date Mónica Adler [place] [address] [place] [address] PCP - General Nurse Practitioner-Family 12/08/16 documented as of this encounter
--- OUTSIDE RECORDS SUMMARY | 2024-09-21 15:17 | XMS_ITS | Encounter Summary ---
Author Organization [place] [address] Care Team Providers Care Supervisor Sawmill Name Role Phone Mónica Adler APRN Primary Care Provider [phone] Reason for Visit * Reason Onset Date Comments Medication Refill 08/07/2024 Encounter Details Date Type Department Care Team (Late st Contact Info) Description 08/07/2024 Refill [facility] [address] [place] [id number] Mónica Adler APRN [address] [facility] [place] [address] Medication Refill [...] 9:51 AM EDT Kannan Zimmerman CCMA * Does this person have serious difficulty walking or climbing stairs? Answer Date of Assessment Author No 08/18/2023 9:51 AM EDT Kannan Zimmerman CCMA * Does this person have difficulty dressing or bathing? Answer Date of Assessment Author No 08/18/2023 9:51 AM EDT Kannan Zimmerman CCMA * Because of a physical, mental or emotional condition, does this person have difficulty doing errands alone such as visiting a doctor's office or shopping? Answer Date of Assessment Author No 08/18/2023 9:51 AM EDT Kannan Zimmerman CCMA documented as of this encounter Mental Status * Because of a physical, mental or emotional condition, does this person have serious difficulty concentrating, remembering or making decisions? Answer Entry Date Author No 08/18/2023 9:51 AM EDT Kannan iZmmerman CCMA documented in this encounter Ordered Prescriptions Prescription Sig Dispense Quantity Refills Last Filled Start Date End Date ALPRAZolam (XANAX) 0.5 mg Oral TabletIndications:G eneralized anxiety disorder Take 1 Tablet by mouth 2 times daily as needed for Anxiety. 60 Tablet 1 08/08/2024 documented in this encounter Miscellaneous Notes * Telephone Encounter - Mónica Adler APRN - 08/08/2024 8:49 AM EDT Last Successful PDMP Review: 08/08/2024 8:48 AM by Mónica Adler APRN Med refilled. * Telephone Encounter - Chandrika Zimmerman CCMA - 08/08/2024 8:05 AM EDT Last Office Visit reviewing controlled substances: 06/07/2024 Approved Ambien, Gabapentin, Lyrica, Butalbital = must be in last 6 months. All other controlled medications = must be in last 3 months. If visit is not up to date, please call and schedule appointment. Next appointment scheduled?: Jessica RUIZ Last Reviewed by Prescriber: PDMP not electronically reviewed on this encounter. Date of last completed CSA if not included in flowsheet below: 10/19/2018 04/02/2022 7:00 AM 08/19/2023 3:00 PM 10/15/2023 7:00 AM CONTROLLED SUBSTANCE Is Consent for treatment completed? Yes Date consent completed 10/19/2018 Urine Drug Screen Comments 08/18/2023 JOSEPH Reference Number [id number] JOSEPH Results as expected If had complete compliance panel: 08/18/2023 Last resulted compliance panel date: 09/04/2022 (If patient had partial drug screen or in-house drug screen, please document date of that below): documented in this encounter Plan of Treatment Upcoming Encounters Date Type Department Care Team (Late st Contact Info) Description 09/26/2024 9:15 AM EDT Office Visit [facility] [place] [address] [place] [address] Mónica Adler APRN [address] [facility] [place] [id number] documented as of this encounter Goals Goal Patient Goal Type Associated Problems Recent Progress Patient-Stated? Author Blood Pressure < 140/90 Blood Pressure 122/78(2024 9:53 AM EST) No Mohini Mendiola N, RMA Maintain a healthy diet, exercise regularly and maintain an ideal body weight General No Mohini Mendiola N, RMA documented as of this encounter Visit Diagnoses Diagnosis Generalized anxiety disorder documented in this encounter Discontinued Medications Medication Sig Discontinue Reason Start Date End Da te ALPRAZolam (XANAX) 0.5 mg Oral TabletIndications:Genera lized anxiety disorder Take 1 Tablet by mouth 2 times daily as needed for Anxiety. Reorder 07/07/2024 08/07/2024 documented as of this encounter Care Teams Supervisor Sawmill Relationship Specialty Start Date End Date Mónica Adler APRN [address] [facility] [place] [address] PCP - General Nurse Practitioner-Family 12/08/16 documented as of this encounter
--- OUTSIDE RECORDS SUMMARY | 2024-09-21 15:17 | XMS_ITS | Encounter Summary ---
Author Organization [place] [address] Care Team Providers Care Plaster Machine Operator Name Role Phone Mónica Adler APRN Primary Care Provider [phone] Reason for Visit * Reason Onset Date Comments Central Order Completion Outreach 07/11/2024 mammogram Encounter Details Date Type Department Care Team (Late st Contact Info) Description 07/11/2024 Patient Outreach [facility] [address] [place] [address] Mónica Adler APRN [address] [place] [address] Central Order Completion Outreach (mammogram) Social History Tobacco Use Types Packs/Day Years [...] 9:51 AM EDT Kannan Zimmerman CCMA documented in this encounter Progress Notes * Rosmery Crouch RN - 08/07/2024 10:11 AM EDT SEP Order Completion Outcome Tracking Contact Attempt:: Final Mammogram Outcome:: Left Voicemail to Return Call at [phone] * Violet Porter, TIERNEY - 07/11/2024 4:02 PM EDT SEP Order Completion Outcome Tracking Contact Attempt:: First Mammogram Outcome:: Left Voicemail to Return Call at [phone], MyChart Message documented in this encounter Plan of Treatment Upcoming Encounters Date Type Department Care Team (Late st Contact Info) Description 09/26/2024 9:15 AM EDT Office Visit [facility] [place] [address] [place] [address] Mónica Adler APRN [address] [place] [address] documented as of this encounter Goals Goal Patient Goal Type Associated Problems Recent Progress Patient-Stated? Author Blood Pressure < 140/90 Blood Pressure 122/78(2024 9:53 AM EST) Mohini Jimenez N, RMA Maintain a healthy diet, exercise regularly and maintain an ideal body weight General No Mohini Mendiola, RMA documented as of this encounter Visit Diagnoses Not on filedocumented in this encounter Care Teams Plaster Machine Operator Relationship Specialty Start Date End Date Mónica Adler APRN [address] [place] [address] PCP - General Nurse Practitioner-Family 12/08/16 documented as of this encounter
--- OUTSIDE RECORDS SUMMARY | 2024-09-21 15:17 | XMS_ITS | Clinical Summary ---
Author Organization [facility] Address [address] 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 60 Tablet 3 1 Active FARXIGA 5 mg Oral Tablet Take 5 mg by mouth daily. 4 Active bumetanide (BUMEX) 2 mg Oral TabletIndication s:edema Take 2 mg by mouth daily as needed for Other (water retention.). Indications: visible water retention Active cyclobenzaprine (FLEXERIL) 10 mg Oral TabletIndication s:Degenerative disc disease, cervical,Degener ative disc disease, lumbar Take 1 Tablet by mouth every 8 hours as needed. for muscle spasms 30 Tablet 1 4 Active Additional Information Patient not taking.Reported on 06/07/2024 baclofen 5 mg Oral Tablet Take 1 Tablet by mouth 3 times daily. 4 Active metoprolol succinate ER (TOPROL-XL) 100 mg Oral Tablet Sustained Release 24 hrIndications:Es sential hypertension TAKE 1 TABLET BY MOUTH EVERY DAY 90 Tablet 3 4 Active rosuvastatin (CRESTOR) 5 mg Oral TabletIndication s:Dyslipidemia Take 1 Tablet by mouth nightly. 90 Tablet 3 5 Active LEVOthyroxine (SYNTHROID) 75 mcg Oral TabletIndication s:Abnormal thyroid function test Take 1 Tablet by mouth daily. 90 Tablet 1 5 Active iron sucrose (VENOFER) 200 mg iron/10 mL IV Solution Inject 10 mL into the vein every 7 days. 50 mL 5 Active ALPRAZolam (XANAX) 0.5 mg Oral TabletIndication s:Generalized anxiety disorder Take 1 Tablet by mouth 2 times daily as needed for Anxiety. 60 Tablet 1 5 Active diclofenac sodium (VOLTAREN) 50 mg Oral Tablet, Delayed Release (E.C.)Indication s:Degenerative disc disease, cervical,Degener ative disc disease, lumbar TAKE 1 TABLET BY MOUTH TWICE DAILY WITH FOOD NEEDED FOR PAIN 60 Tablet 2 5 Active sertraline (ZOLOFT) 100 mg Oral TabletIndication s:Generalized anxiety disorder Take 2 Tablets by mouth daily. 180 Tablet 2 5 Active semaglutide, weight loss, (WEGOVY) 2.4 mg/0.75 mL SubQ Pen Injector Inject 2.4 mg under the skin once a week for 24 doses. 3 mL 5 5 02/29/20 25 Active albuterol (PROVENTIL HFA;VENTOLIN HFA) 90 mcg/actuation Inhl HFA Aerosol InhalerIndicatio ns:History of wheezing Inhale 2 Puffs into the lungs every 4 hours as needed. for wheezing 18 g 6 5 Active Active Problems Patient Care Coordination No te Formatting of this note migh t be different from the original. SEP Kiara Controlled substance- alprazolam 0.5 Joseph- as expected see flowsheet Last ov- 07/18/19 UDS-11/04/18 CSA- on file Retroactive HCC audit completed by Aixa Lacey RN on 10/04/2023. Problem Noted Date Diagnosed Date Iron malabsorption 06/29/2024 Pre-diabetes 08/18/2023 Overview (08/18/2023): Lab Results Component Value Date HGBA1C 5.4 04/06/2023 HGBA1C 5.7 (H) 12/22/2022 Diet control Assessment & Plan (06/07/2024 12:39 PM EST): Lab Results Component Value Date HGBA1C 5.2 08/18/2023 HGBA1C 5.4 04/06/2023 HGBA1C 5.7 (H) 12/22/2022 Improved with weight loss and wegovy Orders: HEMOGLOBIN A1C; Future Bilateral sacroiliitis 08/18/2023 Overview (10/22/2023): Followed by spine clinic at [facility] Assessment & Plan (10/22/2023 4:49 PM EDT): Limits physical mobility. Lumbar radiculopathy 08/18/2023 Arthritis of right knee 08/18/2023 Hyperparathyroidism, primary 04/02/2022 Overview (04/02/2022): Improved with Vitamin D replacement. Assessment & Plan (06/07/2024 12:39 PM EST): Orders: PARATHYROID HORMONE INTACT; Future Assessment & Plan (08/18/2023 10:11 AM EDT): Recheck and follow-up accordingly. Assessment & Plan (09/01/2022 3:24 PM EDT): To monitor. Peripheral edema 10/15/2021 Overview (10/15/2021): Dependent, obesity and thyroid disease contributing Ok for HCTZ daily as needed Iron deficiency anemia jodion linda to inadequate dietary iron intake 06/25/2021 Overview (12/22/2022): Has seen hematology recently Completed 5 iron infusions. Assessment & Plan (12/22/2022 12:05 PM EDT): Due for follow-up labs. Degenerative disc disease, lumbar 11/21/2019 Assessment & Plan (06/07/2024 12:39 PM EST): Followed by pain mgmt. Assessment & Plan (04/22/2021 10:59 AM EST): Try to get results from [facility] - states she had imaging in the past 6 months. Medication management 10/19/2018 Overview (10/22/2023): UDS done 08/18/23 CSA on file OFV: done 08/18/23 Last Successful PDMP Review: 10/22/2023 4:48 PM by Mónica Adler APRN Assessment & Plan (06/07/2024 12:39 PM EST): Orders: COMPLIANCE BENZODIAZEPINE PANEL QUANT ONLY, URINE; Future Assessment & Plan (10/19/2018 5:54 PM EDT): Anticipate startup for xanax daily prn. UDS collected. CSA signed. Reviewed medication management requirements at today's visit. Chronic fatigue 12/08/2016 Overview (06/24/2021): hx of anemia, thyroid disease Multiple contributing meds as well Recommend sleep study Weight loss Thyroid management Anemia management. Assessment & Plan (06/07/2024 12:39 PM EST): Multiple factors Check labs and follow-up accordingly. Generalized anxiety disorder 12/08/2016 Overview (04/02/2022): on Zoloft 200mg with xanax nightly with occasional dose throughout the day as needed. At lowest tolerated dose Med mgmt reviewed and updated. Assessment & Plan (06/07/2024 12:39 PM EST): State Prescription Drug Monitoring Program (i.e JOSEPH, INSPECT, [place]ARS): - report reviewed today Urine Drug Screen: - urine drug screen will be completed today Controlled Substatnce Contract: - completed and on file Orders: ALPRAZolam (XANAX) 0.5 mg Oral Tablet; Take 1 Tablet by mouth 2 times daily as needed for Anxiety. Assessment & Plan (08/18/2023 10:11 AM EDT): Goal: achieve mental health wellness where ADLs, family, social and work relationships are optimal Addressed: - Current stressors contributing to sx explored and discussed Compliance: - compliant with medications Advice: - remain compliant with follow up and medications Medication Management: - a reassessment of the patients current diagnoses, medications, labs, potential SE, appropriate dose and risks assessed and discussed today - responding as expected Assessment & Plan (04/22/2021 11:01 AM EST): Goal: achieve mental health wellness where ADLs, family, social and work relationships are optimal Compliance: - taking medications as prescribed. - not following dietary and lifestyle advice Advice: - advised to contact the office if increased depressive or anxiety symptoms develop Medication Management: - medication management decisions took place at today's visit (see orders) Assessment & Plan (11/28/2020 10:34 AM EDT): She has been having some increased anxiety associated with social stressors requesting her medication BID. Agreeable to quantity increase but encouraged her to take lowest tolerated dos. Assessment & Plan (10/19/2018 5:52 PM EDT): If UDS negative, will start Xanax 0.5mg nightly PRN Iron deficiency anemia 12/08/2016 Overview (04/02/2022): Had injectafor in past and it helped Check labs and follow-up accordingly. Assessment & Plan (06/07/2024 12:39 PM EST): Has undergone venofer injections in past Orders: CBC WITH DIFF; Future IRON+TIBC; Future Thyroid nodule 12/08/2016 Overview (10/22/2023): Pre-existing right lobe nodule. Previously biopsied. Grew in size and new nodule. Had repeat ultrasound that showed benign nodule. Will continue to monitor on serial imaging. Degenerative disc disease, cervical 12/08/2016 Overview (10/19/2018): C-Spine CT on 12/01/16: degenerative disc disease c5-c6 with small right posterior paracentral disc ostophyte complex Stable with conservative treatment. Assessment & Plan (06/07/2024 12:39 PM EST): Followed by pain mgmt. Essential hypertension 12/08/2016 Overview (08/18/2023): Stable. On metoprolol 100mg daily BP Readings from Last 3 Encounters: 08/18/23 120/82 04/06/23 138/78 12/22/22 128/90 Assessment & Plan (06/07/2024 12:39 PM EST): Goal BP: <130/80 BP Readings from Last 3 Encounters: 06/07/24 122/78 10/22/23 122/84 08/18/23 120/82 - at goal Compliance: - compliant with medications Home Blood Pressure Monitoring: - no home monitoring at this time. Continue office follow up as recommended. Advice: - continue a low salt diet and remain physically active Medication Management: - a reassessment of the patients current diagnoses, medications, labs, potential SE, appropriate dose and risks assessed and discussed today Dyslipidemia 12/08/2016 Overview (10/19/2018): Diet control Assessment & Plan (06/07/2024 12:39 PM EST): On statin Orders: LIPID PANEL REFLEX; Future Resolved Problems Problem Noted Date Diagnosed Date Resolved Date Asthma exacerbation 08/18/2023 06/07/19 25 Body fluid retention 08/18/2023 025 Low back pain 08/18/2023 06/07/2024 Chronic diastolic congestive heart failure 08/18/2023 06/07/2024 Overview (08/18/2023): Saw [facility] cards. Per pt she has normal echo, CCTA, two week heart monitor Started on low dosefarxiga, stopped lasix with PRN bumex. Symptoms improved Assessment & Plan (08/18/2023 10:24 AM EDT): Stressed importance for need for weight loss, anemia management and consider sleep apnea evaluation. Pharyngitis 08/18/2023 08/18/2023 Strep throat 08/18/2023 08/18/2023 UTI (urinary tract infection) 08/18/2023 08/18/2023 Viral infection 08/18/2023 08/18/2023 Abnormal thyroid function test 06/24/2021 08/18/2023 Overview (06/24/2021): On synthroid. Obesity, morbid, BMI 50 or higher 12/08/2016 06/07/2024 Overview (10/22/2023): Wt Readings from Last 3 Encounters: 10/22/23 (!) 333 lb (151 kg) 08/18/23 (!) 329 lb (149.2 kg) 04/06/23 (!) 332 lb 9.6 oz (150.9 kg) Consistent weight gain despite calorie restrictions Does have limited physical mobility given chronic pain - encouraged nonweight bearing exercises, 30min/day 3 days/week Assessment & Plan (10/22/2023 4:48 PM EDT): Being followed by [facility]. I believe she would be a good candidate for gastric surgery for weight loss given her very limited physical mobility. Letter completed. Reviewed diet and exercise recommendations. Assessment & Plan (08/18/2023 10:10 AM EDT): s- stressed importance for need for weight loss. No medication options given insurance coverage. Really needs bariatric management. She has referral. Assessment & Plan (10/15/2021 3:38 PM EDT): - she will follow-up monthly for weight and blood pressure checks to maintain accountability. Assessment & Plan (04/22/2021 10:54 AM EST): Goals: - complicating all aspects of care. Work on weight loss. Advice: - low carb diet Assessment & Plan (03/21/2020 3:21 PM EST): Discussed risk and benefit of phentermine. Educated on side effects Reiterated dietary changes and need for increase physical activity. Anxiety 10/11/2018 Panic disorder 10/11/2018 Encounters Date Type Department Care Team Description 09/18/[address] [place] [phone] [place], Mónica, [employer] [place] Medication Refill 09/18/[address] [place] [phone] Mariusz Junior MD Medication Refill 09/08/[address] [place] [address] [place], Mónica, [employer] [place] Medication Refill 08/16/[address] [place] [address] Nayely Mónica, [employer] [place] Orders (venofer) 08/14/[address] [place] [phone] Nayely, Mónica, [employer] [place] Other; Follow Up ([facility] called to f/u on PA status- they're asking to have this faxed to them MIN to be able to get pt scheduled. Please call the NEW # above to advise status .) 08/07/[address] [place] [phone] Nayely, Mónica, [employer] [place] Medication Refill 07/30/[address] [place] [phone] [place], Mónica, [employer] [place] Medication Refill 07/18/2024 Telephone [facility] [address] [place] [address] [place], Mónica, [employer] [place] 07/12/[address] [place] [phone] [place], Mónica, [employer] Medication Refill 07/11/2024 Patient Outreach [facility] [address] [place] [address] Nayely, Mónica, [employer] [place] Central Order Completion Outreach (mammogram) 07/07/2024 Refill [facility] [address] [place] [address] Nayely, Mónica, [employer] [place] Medication Refill 07/03/2024 Orders Only [facility] [address] [place] [phone] Evelyn Muniz, [facility] 07/03/2024 Telephone [facility] [place] [address] [place], Mónica, [employer] [place] 06/29/2024 Orders Only [facility] [place] [address] Kasie Thao, PharmD Iron malabsorption (Primary Dx) 06/29/2024 Refill [facility] [address] [place] [phone] [place], Mónica, [employer] [place] Medication Refill from Last 3 Months Immunizations Immunization Administration Dates Next Due Hepatitis B (Recombinant), Adjuvanted 04/06/2023 Influenza Vaccine Quadrivalent PF 03/21/2020 Influenza Virus Vaccine Quadrivalant, Flublok Surgical History Surgery Date Site/Laterality Comments HERNIA REPAIR Medical History Medical History Date Comments Unspecified essential hypertension Anxiety Neck pain Iron deficiency anemia 12/08/2016 Thyroid nodule 12/08/2016 Degenerative disc disease, cervical 12/08/2016 Morbid obesity with BMI of 50.0-59.9, adult (HCC ) Asthma exacerbation 08/18/2023 New onset of congestive heart failure (HCC) 11/2023 Depression Family History Medical History Relation Name Comments No Known Problems Brother Glaucoma Father Tom leap Heart Attack Father Tom crowleyap age 67 - [place] Vision Loss Father Tom crowleyap No Known Problems Maternal Grandfather No Known Problems Maternal Grandmother Arthritis Mother Zaira leap Asthma Mother Zaira leap Depression Mother Zaira leap Diabetes Mother Zaira leap High Blood Pressure Mother Zaira leap Parkinsonism Mother Zaira leap Stroke Mother Zaira leap No Known Problems Other No Known Problems Paternal Grandfather No Known Problems Paternal Grandmother No Known Problems Sister Allergies Neg Hx Bleeding Prob Neg Hx Cancer Neg Hx Hearing Loss Neg Hx Heart Disease Neg Hx Migraines Neg Hx Thyroid Disease Neg Hx Relation Name Status Comments Brother Alive Father Tom [place] Maternal Grandfather Maternal Grandmother Mother Zaira [place] Other Paternal Grandfather Paternal Grandmother Sister Alive Social History Tobacco Use Types Packs/Day Years Used Date Smoking Tobacco: Never Smokeless Tobacco: Never Tobacco Cessation:Counseling Given: Not Answered Alcohol Use Standard Drinks/Week Comments Never 0 [...] file Not on file Not on file Obstetrics History Last Filed Vital Signs Vital Sign Reading Time Taken Comments Blood Pressure 122/78 06/07/2024 9:53 AM EST Pulse 73 06/07/2024 9:53 AM EST Temperature 36.4 C (97.5 F) 06/07/2024 9:53 AM EST Respiratory Rate 18 06/07/2024 9:53 AM EST Oxygen Saturation 98% 06/07/2024 9:53 AM EST Inhaled Oxygen Concentration - - Weight 134.3 kg (296 lb) 06/07/2024 9:53 AM EST Height 172.7 cm (5' 8 ) 10/22/2023 2:53 PM EDT Body Mass Index 45.01 10/22/2023 2:53 PM EDT Plan of Treatment Upcoming Encounters Date Type Department Care Team (Late st Contact Info) Description 09/26/2024 9:15 AM EDT Office Visit [facility] [address] [place] [phone] Mónica Adler APRN [address] [place] [address] Health Maintenance Due Date Last Done Comments DTaP/TDaP/Td (1 - Tdap) 1994 HPV/Pap Cotest 2005 Colonoscopy 2020 FIT 2020 Sigmoidoscopy 2020 Virtual Colonography 2020 Hepatitis B Vaccine (2 of 2 - CpG 2-dose series) 2023 04/06/2023 COVID-19 Vaccine (1 2023-2 5 season) 2023 Cervical Cancer Screening 08/07/2024 Pap Smear 08/07/2024 08/07/2021 Influenza Vaccine (Season Ended) 2024 04/02/2022, 03/21/2020 Breast Cancer Screening 12/30/2024 12/31/19, 12/18/2020, 11/19/2018 Wellness Exam Medicare 06/08/2025 06/07/2024 Cologuard 09/16/2025 09/16/2022, 09/16/2022 Colon Cancer Screening 09/16/2025 Meningococcal B Vaccine Aged Out No l onger eligible based on patient's age to complete this topic Pneumococcal Vaccine 0-49 Aged Out No longer eligible based on patient's age to complete this topic Goals Goal Patient Goal Type Associated Problems Recent Progress Patient-Stated? Author Blood Pressure < 140/90 Blood Pressure 122/78(2024 9:53 AM EST) No Mohini Mendiola, RMA Maintain a healthy diet, exercise regularly and maintain an ideal body weight General No Mohini Mendiola, ROBINA Procedures Procedure Name Priority Date/Time Associated Diagnosis Comments HM MAMMOGRAPHY Routine 12/30/2022 7:23 AM EDT COLOGUARD Routine 09/16/2022 10:30 PM EDT Special screening for malignant neoplasms, colon Screening for malignant neoplasm of the rectum COMMODITY LEAD CYTOLOGY REQUEST (PAP ONLY) Routine 08/07/2021 1:45 PM EDT Cervical cancer screening from Last 3 Months or Most Recently Relevant to Health Maintenance Results * HM MAMMOGRAPHY (12/30/2022 7:23 AM EDT) us Historical Provider HEALTH MAINTENANCE Final Res ult SEP OFFICE * COLOGUARD (09/16/2022 10:30 PM EDT) COLOGUARD CLINICAL REPORT Negative Negative [facility] Comment: NEGATIVE TEST RESULT. A negative Cologuard result indicates a low likelihood that a colorectal cancer (CRC) or advanced adenoma (adenomatous polyps with more advanced pre-malignant features) is present. The chance that a person with a negative Cologuard test has a colorectal cancer is less than 1 in 1500 (negative predictive value >99.9%) or has an advanced adenoma is less than 5.3% (negative predictive value 94.7%). These data are based on a prospective cross-sectional study of 10,000 individuals at average risk for colorectal cancer who were screened with both Cologuard and colonoscopy. (Haider Phillips et al, N Engl J Med 2014;370(14):8757-1802) The normal value (reference range) for this assay is negative. COLOGUARD RE-SCREENING RECOMMENDATION: Periodic colorectal cancer screening is an important part of preventive healthcare for asymptomatic individuals at average risk for colorectal cancer. Following a negative Cologuard result, the [place] Cancer Society and U.S. Multi-Society Task Force screening guidelines recommend a Cologuard re-screening interval of 3 years. References: [place] Cancer Society Guideline for Colorectal Cancer Screening: https://www.cancer.org/cancer/xofxp-eoxgnu-ynpxaq/vxiqkldxo-iefefwakd-joyuaip/ac s-rec ommendations.html.; Calin CORDERO, Mary EMERSON, Marco Antonio HallK, Colorectal Cancer Screening: Recommendations for Physicians and Patients from the U.S. Multi-Society Task Force on Colorectal Cancer Screening , Am J Gastroenterology 2017; 112:4283-5686. TEST DESCRIPTION: Composite algorithmic analysis of stool DNA-biomarkers with hemoglobin immunoassay. Quantitative values of individual biomarkers are not reportable and are not associated with individual biomarker result reference ranges. Cologuard is intended for colorectal cancer screening of adults of either sex, 45 years or older, who are at average-risk for colorectal cancer (CRC). Cologuard has been approved for use by the U.S. FDA. The performance of Cologuard was established in a cross sectional study of average-risk adults aged 50-84. Cologuard performance in patients ages 45 to 49 years was estimated by sub-group analysis of near-age groups. Colonoscopies performed for a positive result may find as the most clinically significant lesion: colorectal cancer [4.0%], advanced adenoma (including sessile serrated polyps greater than or equal to 1cm diameter) [20%] or non- advanced adenoma [31%]; or no colorectal neoplasia [45%]. These estimates are derived from a prospective cross-sectional screening study of 10,000 individuals at average risk for colorectal cancer who were screened with both Cologuard and colonoscopy. (Haider Phillips et al, N Engl J Med 2014;370(14):9590-0528.) Cologuard may produce a false negative or false positive result (no colorectal cancer or precancerous polyp present at colonoscopy follow up). A negative Cologuard test result does not guarantee the absence of CRC or advanced adenoma (pre-cancer). The current Cologuard screening interval is every 3 years. ([place] Cancer Society and U.S. Multi-Society Task Force). Cologuard performance data in a 10,000 patient pivotal study using colonoscopy as the reference method can be accessed at the following location: www.[employer]/results. Additional description of the Cologuard test process, warnings and precautions can be found at www.[employer].com. Stool 09/16/2022 10:3 0 PM EDT 09/18/2022 8:25 PM EDT Mónica Adler APRN [employer] - ORDERABLES Final Result Performing Organization Address City/State/[facility] Co de Phone Number [employer] [address] [employer] [address] [place] [phone] * COMMODITY LEAD CYTOLOGY REQUEST (PAP ONLY) (08/07/2021 1:45 PM EDT) CASE REPORT Gynecologic Cytology Report Case: [id number] Authorizing Provider: Mónica Adler APRN Collected: 08/07/2021 2714 Ordering Location: [facility] Received: 08/07/2021 1342 First Screen: Sandra Calhoun, CT Rescreen: Yohana Richey, CT Specimen: LIQUID-BASED PAP - CERVICAL/ENDOCERV ICAL, Cervix, Endocervical 08/12/2021 3:28 PM EDT PSYCHIATRIC LABORATORY PAP FINAL DIAGNOSIS Negative for intraepithelial lesion or malignancy 08/12/2021 3:28 PM EDT [facility] at 1528 EDT MICROSCOPIC DESCRIPTION Microscopic examination is performed and the findings corroborate the diagnosis. 08/12/2021 3:28 PM EDT PSYCHIATRIC LABORATORY PAP SMEAR ADEQUACY Satisfactory for evaluation 08/12/2021 3:28 PM EDT [facility] SPECIMEN LIMITATIONS Obscured by inflammation 08/12/2021 3:28 PM EDT [facility] PAP ORGANISMS NOTED Abundant bacteria present. 08/12/2021 3:28 PM EDT [facility] ENDOCERVICAL T-ZONE Transformation zone absent. 08/12/2021 3:28 PM EDT PSYCHIATRIC LABORATORY EMBEDDED IMAGES 3:28 PM EDT [facility] PAP DISCLAIMER This case was not successfully imaged due to technical reasons and was manually rescreened. The Pap Smear is a screening test that aids in the detection of cervical cancer and cancer precursors. Both false positive and false negative results can occur. The test should be used at regular intervals, and positive results should be confirmed before definitive therapy. Processed using the ThinPrep Metal Casket Maker Automated cytology screening device (Cortexa). 08/12/2021 3:28 PM EDT [facility] Thin Prep ENDOCERVICAL STRUCTURE / Unknown 08/07/2021 1:45 PM EDT 08/07/2021 1:45 PM EDT us Mónica Adler [employer] [place] CYTOLOGY ORDERABLES Final R esult [facility] [address] [place] [address] from Last 3 Months or Most Recently Relevant to Health Maintenance Insurance [employer] [place] [facility] DUAL COMPLETE HMO [place] [employer] [place] [employer] [place] Care Teams Yarn Polishing Machine Operator Relationship Specialty Start Date End Date Mónica Adler APRN [address] [place], [place] [address] PCP - General Nurse Practitioner-Family 12/08/16
--- OUTSIDE RECORDS SUMMARY | 2024-09-21 15:17 | XMS_ITS | Encounter Summary ---
Author Organization [place] [address] Care Team Providers Care Forest Management Teacher Name Role Phone Mónica Adler APRN Primary Care Provider [phone] Reason for Visit * Reason Onset Date Comments Other 08/14/2024 Follow Up 08/14/2024 Vania called to f/u on PA status- they're asking to have this faxed to them MIN to be able to get pt scheduled. Please call the NEW # above to advise status . Encounter Details Date Type Department Care Team (Late st Contact Info) Description 08/14/2024 Telephone [facility] [address] [place] [address] Mónica Adler APRN [address] [facility] [place] [address] Other; Follow Up (Vania called to f/u on PA status- they're asking to have this faxed to them MIN to be able to get pt scheduled. Please call the NEW # above to advise status .) Social History Tobacco Use Types Packs/Day Years [...] Kannan Zimmerman CCMA documented in this encounter Miscellaneous Notes * Telephone Encounter - Mónica Adler APRN - 08/15/2024 4:29 PM EDT Letter done. * Telephone Encounter - Chandrika Zimmerman CCMA - 08/15/2024 3:21 PM EDT Please advise on oral iron * Telephone Encounter - Yasmin Antony RMA - 08/15/2024 2:19 PM EDT Select the most appropriate reason for this telephone message: Follow Up Follow Up Who is Calling:[facility] (include which hospital and caller's name) What is the caller following up on (make sure to reference any prior documentation/encounter): Vania is calling to following on prior authorization - she is requesting most recent iron lab resultsbe faxed to her at [phone] - she also needs something from PCP stating patient has tried oral iron med x 6 weeks and was not tolerable. Further follow-up needed?:Yes Return Method of Communication:Phone call Additional Information:N/A * Telephone Encounter - Chandrika Zimmerman CCMA - 08/15/2024 2:14 PM EDT Authorization not needed. Lm and faxed * Telephone Encounter - Tiffanie Esposito - 08/15/2024 1:58 PM EDT Select the most appropriate reason for this telephone message: Follow Up Follow Up Who is Calling:[facility] with [facility] (include which hospital and caller's name) What is the caller following up on (make sure to reference any prior documentation/encounter):Vania called to f/u on the PA status for the Venofer injection. They rec'd the referral from us for this, but needed the PA done in order to do this for her. Pt is not yet scheduled for this since we haven't sent this to them. Please fax to [phone] Ph # to Infusion Center- [phone] Further follow-up needed?:Yes Return Method of Communication:Phone call Additional Information: Please fax this min * Telephone Encounter - Candie Ocampo MA - 08/14/2024 10:27 AM EDT Vania calling from [facility] saying she needed a pre- authorization form regarding patients Venofer injection. Please fax to [phone] or give her a call with any additional questions. Thanks! documented in this encounter Plan of Treatment Upcoming Encounters Date Type Department Care Team (Late st Contact Info) Description 09/26/2024 9:15 AM EDT Office Visit [facility] [address] [place] [phone] Mónica Adler APRN [address] [facility] [place] [id number] documented as of this encounter Goals Goal [...] on filedocumented in this encounter Care Teams Forest Management Teacher Relationship Specialty Start Date End Date Mónica Adler APRN [address] [place] [address] [place] [id number] PCP - General Nurse Practitioner-Family 12/08/16 documented as of this encounter
--- OUTSIDE RECORDS SUMMARY | 2024-09-21 15:17 | XMS_ITS | Encounter Summary ---
Author Organization [place] [address] Care Team Providers Care Sprayer Operator Name Role Phone Mónica Adler APRN Primary Care Provider [phone] Reason for Visit * Reason Onset Date Comments Orders 08/16/2024 venofer Encounter Details Date Type Department Care Team (Late st Contact Info) Description 08/16/2024 Telephone [facility] [address] [place] [address] Mónica Adler APRN [address] [facility] [place] [address] Orders (venofer) Social History Tobacco Use Types Packs/Day Years [...] encounter Miscellaneous Notes * Telephone Encounter - Chandrika Zimmerman CCMA - 08/16/2024 10:38 AM EDT Faxed * Telephone Encounter - Justin Richey - 08/16/2024 10:24 AM EDT Select the most appropriate reason for this telephone message: Order Request Who is requesting the Order(s): Other [facility] What Orders are being requested: Other need the order for venofer faxed. they have received the referral but not the order Reason Orders are Needed (Diagnosis): iron deficiancy If non-[facility], where should the order be faxed: [phone] Return Method of Communication: Phone Call Additional Information: N/A documented in this encounter Plan of Treatment Upcoming Encounters Date Type Department Care Team (Late st Contact Info) Description 09/26/2024 9:15 AM EDT Office Visit [facility] [place] [facility] [address] [place] [address] Mónica Adler APRN [address] [facility] [place] [address] documented as of this encounter Goals Goal [...] on filedocumented in this encounter Care Teams Sprayer Operator Relationship Specialty Start Date End Date Mónica Adler APRN [address] [place] [address] [place] [id number] PCP - General Nurse Practitioner-Family 12/08/16 documented as of this encounter
--- OUTSIDE RECORDS SUMMARY | 2024-09-21 15:17 | XMS_ITS | Encounter Summary ---
Author Organization [place] [address] Care Team Providers Care Facility Supervisor Name Role Phone Mónica Adler APRN Primary Care Provider [phone] Reason for Visit * Reason Onset Date Comments Medication Refill 09/18/2024 Encounter Details Date Type Department Care Team (Late st Contact Info) Description 09/18/2024 Refill [facility] [address] [place] [phone] Mónica Adler APRN [address] [facility] [place] [address] Medication Refill Social History Tobacco Use [...] of Assessment Author No 08/18/2023 9:51 AM EDKannan Deleon CCMA * Does this person have difficulty [...] Entry Date Author No 08/18/2023 9:51 AM EDKannan Deleon CCMA documented in this encounter Ordered Prescriptions Prescription Sig Dispense Quantity Refills Last Filled Start Date End Date albuterol (PROVENTIL HFA;VENTOLIN HFA) 90 mcg/actuation Inhl HFA Aerosol InhalerIndications :History of wheezing Inhale 2 Puffs into the lungs every 4 hours as needed. for wheezing 18 g 6 09/19/2024 semaglutide, weight loss, (WEGOVY) 2.4 mg/0.75 mL SubQ Pen Injector Inject 2.4 mg under the skin once a week for 24 doses. 3 mL 5 09/19/2024 5 documented in this encounter Plan of Treatment Upcoming Encounters Date Type Department Care Team (Late st Contact Info) Description 09/26/2024 9:15 AM EDT Office Visit [facility] [place] [facility] [address] [place] [address] Mónica Adler APRN [address] [place] [address] documented as of this encounter Goals Goal Patient Goal Type Associated Problems Recent Progress Patient-Stated? Author Blood Pressure < 140/90 Blood Pressure 122/78(2024 9:53 AM EST) No Mendiola, Mohini N, RMA Maintain a healthy diet, exercise regularly and maintain an ideal body weight General No Mohini Mendiola N, RMA documented as of this encounter Visit Diagnoses Diagnosis History of wheezing Personal history of other diseases of respiratory system documented in this encounter Discontinued Medications Medication Sig Discontinue Reason Start Date End Da te semaglutide, weight loss, (WEGOVY) 2.4 mg/0.75 mL SubQ Pen Injector Subcutaneous (Inject under the skin) 2.4 mg once a week for 24 doses. Reorder 06/29/2024 09/18/2024 albuterol (PROVENTIL HFA;VENTOLIN HFA) 90 mcg/actuation Inhl HFA Aerosol InhalerIndications:Hi story of wheezing Inhale 2 Puffs into the lungs every 4 hours as needed. for wheezing Reorder 09/08/2024 09/18/2024 documented as of this encounter Care Teams Facility Supervisor Relationship Specialty Start Date End Date Mónica Adler APRN [address] [place] [address] PCP - General Nurse Practitioner-Family 12/08/16 documented as of this encounter
--- OUTSIDE RECORDS SUMMARY | 2024-09-21 15:17 | XMS_ITS | Encounter Summary ---
Author Organization [place] [address] Care Team Providers Care Rheumatology Nurse Name Role Phone Mónica Adler CUSTOMER FIELD REPRESENTATIVE Primary Care Provider [phone] Reason for Visit * Reason Onset Date Comments Medication Refill 09/18/2024 Encounter Details Date Type Department Care Team (Late st Contact Info) Description 09/18/2024 Refill [facility] [address] [place] [phone] Mariusz Junior MD [address] [place] [address] [place] [address] Medication Refill Social History Tobacco Use Types [...] Deleon CCMA * Does this person have serious difficulty walking or climbing stairs? Answer Date of Assessment Author No 08/18/2023 9:51 AM EDKannan Deleon CCMA * Does this person have difficulty dressing or bathing? Answer Date of Assessment Author No 08/18/2023 9:51 AM EDKannan Deleon CCMA * Because of a physical, mental or emotional condition, does this person have difficulty doing errands alone such as visiting a doctor's office or shopping? Answer Date of Assessment Author No 08/18/2023 9:51 AM EDKannan Deleon CCMA documented as of this encounter Mental Status * Because of a physical, mental or emotional condition, does this person have serious difficulty concentrating, remembering or making decisions? Answer Entry Date Author No 08/18/2023 9:51 AM Kannan Gimenez CCMA documented in this encounter Ordered Prescriptions Prescription Sig Dispense Quantity Refills Last Filled Start Date End Date sertraline (ZOLOFT) 100 mg Oral TabletIndications: Generalized anxiety disorder Take 2 Tablets by mouth daily. 180 Tablet 2 09/19/2024 diclofenac sodium (VOLTAREN) 50 mg Oral Tablet, Delayed Release (E.C.)Indications: Degenerative disc disease, cervical,Degenerat yordan disc disease, lumbar TAKE 1 TABLET BY MOUTH TWICE DAILY WITH FOOD NEEDED FOR PAIN 60 Tablet 2 09/19/2024 documented in this encounter Plan of Treatment Upcoming Encounters Date Type Department Care Team (Late st Contact Info) Description 09/26/2024 9:15 AM EDT Office Visit [facility] [address] [place] [phone] Mónica Adler APRN [address] [place] [address] documented as of this encounter Goals Goal Patient Goal Type Associated Problems Recent Progress Patient-Stated? Author Blood Pressure < 140/90 Blood Pressure 122/78(2024 9:53 AM EST) No Mohini Mendiola N, RMA Maintain a healthy diet, exercise regularly and maintain an ideal body weight General No Mohini Mendiola N, RMA documented as of this encounter Visit Diagnoses Diagnosis Degenerative disc disease, cervical Degeneration of cervical intervertebral disc Degenerative disc disease, lumbar Degeneration of lumbar or lumbosacral intervertebral disc Generalized anxiety disorder documented in this encounter Discontinued Medications Medication Sig Discontinue Reason Start Date End Da te diclofenac sodium (VOLTAREN) 50 mg Oral Tablet, Delayed Release (E.C.)Indications:Degene rative disc disease, cervical,Degenerative disc disease, lumbar TAKE 1 TABLET BY MOUTH TWICE DAILY WITH FOOD NEEDED FOR PAIN Reorder 12/24/2023 09/18/2024 sertraline (ZOLOFT) 100 mg Oral TabletIndications:Genera lized anxiety disorder Take 2 Tablets by mouth daily. Reorder 06/16/2024 09/18/2024 documented as of this encounter Care Teams Rheumatology Nurse Relationship Specialty Start Date End Date Mónica Adler APRN [address] [place] [id number] PCP - General Nurse Practitioner-Family 12/08/16 documented as of this encounter
== END 2024-09-21 23:59 | disposition home or self-care (01) ==
LOC: RAD 14:52
PROVIDERS: PCP Nurse Practitioner; Visit Provider Nurse Practitioner
DX: Z12.31 Encounter for screening mammogram for malignant neoplasm of breast (principal); R92.323 Mammographic fibroglandular density, bilateral breasts; N63.0 Unspecified lump in unspecified breast; E04.1 Nontoxic single thyroid nodule
CPT/HCPCS: 76536; 77063; 77067

== ENCOUNTER → 2024-10-06 09:08 | Outpatient (CLI) | payer MEDICARE, OTHER, SELFPAY ==
--- OUTSIDE RECORDS SUMMARY | 2024-10-06 09:11 | XMS_ITS | Encounter Summary ---
Author Organization [facility] [place] [address] Care Team Providers Care K9 Handler Name Role Phone Mónica Adler APRN Primary Care Provider [phone] Reason for Visit * Reason Onset Date Comments Results 09/22/2024 Encounter Details Date Type Department Care Team (Late st Contact Info) Description 09/22/2024 Telephone [facility] [address] [place] [address] Mónica Adler APRN [address] [employer] [facility] [place] [address] Results Social History Tobacco Use Types Packs/Day Years [...] Telephone Encounter - Mónica Adler APRN - 09/22/2024 5:23 PM EDT Received results of thyroid ultrasound. Her nodule has increased in size. Does not have any new nodules I do recommend seeing ENT due to the large size of nodule. There is an ENT group that goes to [facility] if she would like to see them. Ok to send referral of her choice. Ok for SEP ENT as well. documented in this encounter Plan of Treatment Not on file documented as of this encounter Goals Goal Patient Goal Type Associated Problems Recent Progress Patient-Stated? Author Blood Pressure < 140/90 Blood Pressure 122/78(2024 9:53 AM EST) No Mohini Mendiola, RMA Maintain a healthy diet, exercise regularly and maintain an ideal body weight General No Mohini Mendioal N, RMA documented as of this encounter Visit Diagnoses Not on filedocumented in this encounter Care Teams K9 Handler Relationship Specialty Start Date End Date Mónica Adler [place] [address] [place] [address] PCP - General Nurse Practitioner-Family 12/08/16 documented as of this encounter
--- OUTSIDE RECORDS SUMMARY | 2024-10-06 09:12 | XMS_ITS | Encounter Summary ---
Author Organization [place] [address] Care Team Providers Care Movie Shot Cameraman Name Role Phone Mónica Adler APRN Primary Care Provider [phone] Reason for Visit * Reason Onset Date Comments Other 08/14/2024 Follow Up 08/14/2024 Vania called to f/u on PA status- they're asking to have this faxed to them MIN to be able to get pt scheduled. Please call the NEW # above to advise status . Encounter Details Date Type Department Care Team (Late st Contact Info) Description 08/14/2024 Telephone [facility] [address] [place] [address] Mónica Adler APRN [address] [facility] [place] [address] Other; Follow Up (Vania called to [...] message: Follow Up Follow Up Who is Calling:[facility] (include which hospital and caller's name) What is the caller following up on (make sure to reference any prior documentation/encounter): Vania is calling to following on prior authorization - she is requesting most recent iron lab resultsbe faxed to her at [phone] - she also needs something from PCP [...] message: Follow Up Follow Up Who is Calling:[facility] (include which hospital and [...] sent this to them. Please fax to [phone] Ph # to Infusion Center- [phone] Further follow-up needed?:Yes Return Method of Communication:Phone call Additional Information: Please fax this min * Telephone Encounter - Candie Ocampo MA - 08/14/2024 10:27 AM EDT Vania calling from [facility] saying she needed a pre- authorization form regarding patients Venofer injection. Please fax to [phone] or give her a call with any [...] on filedocumented in this encounter Care Teams Movie Shot Cameraman Relationship Specialty Start Date End Date Mónica Adler APRN [address] [place] [address] PCP - General Nurse Practitioner-Family 12/08/16 documented as of this encounter
--- OUTSIDE RECORDS SUMMARY | 2024-10-06 09:12 | XMS_ITS | Encounter Summary ---
Author Organization [facility] [place] [address] Care Team Providers Care Correctional Maintenance Technician Name Role Phone Mónica Adler TURNING SANDER OPERATOR Primary Care Provider [phone] Reason for Visit * Reason Onset Date Comments Medication Refill 09/18/2024 Encounter Details Date Type Department Care Team (Late st Contact Info) Description 09/18/2024 Refill [facility] [address] [place] [phone] Mariusz Junior MD [address] [place] [address] [place] [address] Medication Refill Social History Tobacco Use Types [...] and maintain an ideal body weight General Mohini Jimenez, RMA documented as of this encounter Visit [...] documented as of this encounter Care Teams Correctional Maintenance Technician Relationship Specialty Start Date End Date Mónica Adler APRN [address] [place] [address] PCP - General Nurse Practitioner-Family 12/08/16 documented as of this encounter
--- OUTSIDE RECORDS SUMMARY | 2024-10-06 09:12 | XMS_ITS | Encounter Summary ---
Author Organization [place] [address] Care Team Providers Care Environmental Scientists Name Role Phone Mónica Adler APRN Primary Care Provider [phone] Reason for Visit * Reason Onset Date Comments Medication Refill 09/18/2024 Encounter Details Date Type Department Care Team (Late st Contact Info) Description 09/18/2024 Refill [facility] [address] [place] [phone] Mónica Adler APRN [address] [facility] [address] Medication Refill Social History Tobacco Use [...] 122/78(2024 9:53 AM EST) No Mohini Mendiola RMA Maintain a healthy diet, exercise regularly and maintain an ideal body weight General Mohini Jimenez RMA documented as of this encounter Visit [...] documented as of this encounter Care Teams Environmental Scientists Relationship Specialty Start Date End Date Mónica Adler APRN [address] [place] [address] PCP - General Nurse Practitioner-Family 12/08/16 documented as of this encounter
--- OUTSIDE RECORDS SUMMARY | 2024-10-06 09:12 | XMS_ITS | Clinical Summary ---
Author Organization [facility] Address [address] [place] [address] Phone Care Team Providers Care Dental Assisting Instructor Name Role Phone Mónica Adler APRN Primary Care Provider [phone] Allergies No known active allergies Medications calcium [...] Overview (10/22/2023): Followed by spine clinic at [facility] Assessment & Plan (10/22/2023 4:49 PM [...] AM EST): Try to get results from [facility] - states she had imaging in [...] heart failure 08/18/2023 06/07/2024 Overview (08/18/2023): Saw [facility] cards. Per pt she has normal [...] (10/22/2023 4:48 PM EDT): Being followed by [facility]. I believe she would be a [...] Encounters Date Type Department Care Team Description 09/22/[address] [place] [address] Mónica Adler, NETWORK INFRASTRUCTURE ARCHITECT Results 09/18/[address] [place] [address] Serjio Adlerika, NETWORK INFRASTRUCTURE ARCHITECT Medication Refill 09/18/[address] [place] [address] Mariusz Junior MD Medication Refill 09/08/[address] [place] [address] InterlachenSerjio fernandoika, NETWORK INFRASTRUCTURE ARCHITECT Medication Refill 08/16/[address] [place] [address] Serjio Adlerika, NETWORK INFRASTRUCTURE ARCHITECT Orders (venofer) 08/14/[address] [place] [address] NayelyMónica fernando, NETWORK INFRASTRUCTURE ARCHITECT Other; Follow Up ([facility] called to f/u on PA status- they're asking to have this faxed to them MIN to be able to get pt scheduled. Please call the NEW # above to advise status .) 08/07/[address] [place] [address] Serjio Adlerika, NETWORK INFRASTRUCTURE ARCHITECT Medication Refill 07/30/[address] [place] [address] Mónica Adler, NETWORK INFRASTRUCTURE ARCHITECT Medication Refill 07/18/2024 Telephone [facility] [address] [place] [address] Mónica Adlre, NETWORK INFRASTRUCTURE ARCHITECT 07/12/[address] [place] [address] Mónica Adler APRN Medication Refill 07/11/2024 Patient Outreach [facility] [address] [place] [id number] Nayely, Mónica, NETWORK INFRASTRUCTURE ARCHITECT Central Order Completion Outreach (mammogram) 07/07/2024 Refill [facility] Ki[facility] [address] [place] [address] Mónica Adler APRN Medication Refill from Last 3 Months Immunizations [...] No Known Problems Brother Glaucoma Father Tom [place] Heart Attack Father Tom [place] age 67 - [place] Vision Loss Father oTm [place] No Known Problems Maternal Grandfather No Known [...] 10/22/2023 2:53 PM EDT Plan of Treatment Health Maintenance Due Date Last Done Comments DTaP/TDaP/Td (1 - Tdap) 1994 HPV/Pap Cotest 2005 Colonoscopy 2020 FIT 2020 Sigmoidoscopy 2020 Virtual Colonography 2020 Hepatitis B Vaccine (2 of 2 - CpG 2-dose series) 2023 04/06/2023 COVID-19 Vaccine (1 - 2023-2 5 season) 2023 Cervical Cancer Screening [...] Blood Pressure 122/78(2024 9:53 AM EST) Mohini Jimenez, RMA Maintain a healthy diet, exercise regularly and maintain an ideal body weight General No Mohini Mendiola, RMA Procedures Procedure Name Priority Date/Time Associated Diagnosis Comments HM MAMMOGRAPHY Routine 12/30/2022 7:23 AM EDT COLOGUARD Routine 09/16/2022 10:30 PM EDT Special screening for malignant neoplasms, colon Screening for malignant neoplasm of the rectum 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 A negative [...] screened with both Cologuard and colonoscopy. (Haider Kelly al, N Engl J Med 2014;370(14):4228-3205) The normal value (reference range) for this assay is negative. COLOGUARD RE-SCREENING RECOMMENDATION: Periodic colorectal cancer screening is an important part of preventive healthcare for asymptomatic individuals at average risk for colorectal cancer. Following a negative Cologuard result, the [place] [employer] and U.S. Multi-Society Task Force screening guidelines recommend a Cologuard re-screening interval of 3 years. References: [place] [employer] Guideline for Colorectal Cancer Screening: https://www.cancer.org/cancer/cafps-gvudjb-fjqghj/knhynwisy-avgpgerxv-nwbaffn/ac s-rec ommendations.html.; Calin DK, Mary CR, Marco Antonio HallK, Colorectal Cancer Screening: Recommendations for Physicians and Patients from the U.S. Multi-Society Task Force on Colorectal Cancer Screening , Am J Gastroenterology 2017; 112:4398-7353. TEST DESCRIPTION: Composite algorithmic analysis of stool [...] screened with both Cologuard and colonoscopy. (Haider Kelly al, N Engl J Med 2014;370(14):5814-2798.) Cologuard may produce a false negative or false positive result (no colorectal cancer or precancerous polyp present at colonoscopy follow up). A negative Cologuard test result does not guarantee the absence of CRC or advanced adenoma (pre-cancer). The current Cologuard screening interval is every 3 years. ([place] [employer] and U.S. Multi-Society Task Force). Cologuard performance data in a 10,000 patient pivotal study using colonoscopy as the reference method can be accessed at the following location: www.[employer]/results. Additional description of the Cologuard test process, warnings and precautions can be found at www.cologuard.com. 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 CYTOLOGY REQUEST (PAP ONLY) (08/07/2021 1:45 PM EDT) CASE REPORT Gynecologic Cytology Report Case: [id number] Authorizing Provider: Mónica Adler APRN Collected: 08/07/2021 1345 Ordering Location: [facility] Received: 08/07/2021 1345 First Screen: Sandra Calhoun CT Rescreen: Yohana Richey CT Specimen: LIQUID-BASED PAP - CERVICAL/ENDOCERV ICAL, Cervix, Endocervical 08/12/2021 3:28 PM EDT [facility] PAP FINAL DIAGNOSIS Negative for intraepithelial lesion or malignancy 08/12/2021 3:28 PM EDT [facility] at 1528 EDT MICROSCOPIC DESCRIPTION Microscopic examination is performed and the findings corroborate the diagnosis. 08/12/2021 3:28 PM EDT [facility] PAP SMEAR ADEQUACY Satisfactory for evaluation 08/12/2021 3:28 PM EDT [facility] SPECIMEN LIMITATIONS Obscured by inflammation 08/12/2021 3:28 PM EDT [facility] PAP ORGANISMS NOTED Abundant bacteria present. 08/12/2021 3:28 PM EDT [facility] ENDOCERVICAL T-ZONE Transformation zone absent. 08/12/2021 3:28 PM EDT [facility] EMBEDDED IMAGES 3:28 PM EDT [facility] PAP DISCLAIMER This case was not successfully [...] before definitive therapy. Processed using the ThinPrep Jet Wiper Automated cytology screening device ([employer]). 08/12/2021 3:28 PM EDT [facility] Thin Prep ENDOCERVICAL STRUCTURE / Unknown 08/07/2021 1:45 PM EDT 08/07/2021 1:45 PM EDT Mónica Adler APRN CYTOLOGY ORDERABLES Final R esult [facility] [address] [id number] from Last 3 Months or Most Recently Relevant to Health Maintenance [facility] [place] [address] [facility] DUAL COMPLETE HMO [place] [facility] [address] [facility] [address] Care Teams Dental Assisting Instructor Relationship Specialty Start Date End Date Mónica [place] [address] [place] [address] PCP - General Nurse Practitioner-Family 12/08/16
--- OUTSIDE RECORDS SUMMARY | 2024-10-06 09:12 | XMS_ITS | Encounter Summary ---
Author Organization [place] [address] Care Team Providers Care Scientific Aide Name Role Phone Mónica Adler APRN Primary Care Provider [phone] Reason for Visit * Reason Onset Date Comments Central Order Completion Outreach 07/11/2024 mammogram Encounter Details Date Type Department Care Team (Late st Contact Info) Description 07/11/2024 Patient Outreach [facility] [address] [place] [address] Mónica Adler APRN [address] [address] Central Order Completion Outreach (mammogram) Social History [...] EDKannan Deleon CCMA documented in this encounter Progress Notes * Rosmery Crouch RN - 08/07/2024 10:11 AM EDT SEP Order Completion Outcome Tracking Contact Attempt:: Final Mammogram Outcome:: Left Voicemail to Return Call at [phone] * Violet Porter RN - 07/11/2024 4:02 PM EDT SEP Order Completion Outcome Tracking Contact Attempt:: First Mammogram Outcome:: Left Voicemail to Return Call at [phone], MyChart Message documented in this encounter Plan of Treatment Not on file documented as of this encounter Goals Goal Patient Goal Type Associated Problems Recent Progress Patient-Stated? Author Blood Pressure < 140/90 Blood Pressure 122/78(2024 9:53 AM EST) No Mohini Mendiola, RMA Maintain a healthy diet, exercise regularly and maintain an ideal body weight General No Mendiola, Mohini N, RMA documented as of this encounter Visit Diagnoses Not on filedocumented in this encounter Care Teams Scientific Aide Relationship Specialty Start Date End Date Mónica Adler APRN [address] [place], [place] [address] PCP - General Nurse Practitioner-Family 12/08/16 documented as of this encounter
--- OUTSIDE RECORDS SUMMARY | 2024-10-06 09:12 | XMS_ITS | Encounter Summary ---
Author Organization [place] [address] Care Team Providers Care Experimental Mechanic Name Role Phone Mónica Adler APRN Primary Care Provider [phone] Reason for Visit * Reason Onset Date Comments Medication Refill 08/07/2024 Encounter Details Date Type Department Care Team (Late st Contact Info) Description 08/07/2024 Refill [facility] [address] [place] [id number] Mónica Adler APRN [address] [facility] [place] [address] Medication Refill Social History Tobacco Use [...] Kannan Zimmerman CCMA documented in this encounter Ordered Prescriptions [...] completed 10/19/2018 Urine Drug Screen Comments 08/18/2023 [facility] Reference Number [id number] JOSEPH Results as expected If had complete [...] documented as of this encounter Care Teams Experimental Mechanic Relationship Specialty Start Date End Date Mónica Adler APRN [address] [place], [place] [address] PCP - General Nurse Practitioner-Family 12/08/16 documented as of this encounter
--- OUTSIDE RECORDS SUMMARY | 2024-10-06 09:13 | XMS_ITS | Data Portability ---
Author Organization [place] - [facility] - [place] & RAMILA Pang ADMIN Address [address] [place] [address] Care Team Providers Care Nuclear Design Engineer Name Role Phone ROSA RITTER Primary Care [...] available 10/08/2023 13:58:09 08/03/2024 08/03/2024 ASSESSMENT: María Mahajan is a 49-year-old female with kidney stones [...] plasma 2024 025 [email or web address] [facility], [address], [address], [place], [address], 08/10/2024 13:41:56 uric acid, serum or plasma 2024 025 [email or web address] [facility], [address], [address], [place], [address], 08/10/2024 13:41:57 phosphoru s, serum or plasma 2024 025 [email or web address] [facility], [address], [address], [place], [address], 08/03/2024 11:48:27 CBC w/ auto diff 2023 024 [facility], [address], [address], [place], [address], 10/01/2023 14:03:55 iron + TIBC + ferritin, serum 2023 024 [email or web address] [facility], [address], [address], [place], [address], 10/01/2023 14:03:55 copper, serum or plasma 2023 024 [email or web address] [facility], [address], [address], [place], [address], 10/01/2023 14:03:57 CMP, serum or plasma 2023 024 [facility], [address], [address], [place], [address], 10/01/2023 14:03:55 HbA1c (hemoglob in A1c), blood 2023 024 [email or web address] [facility], [address], [address], [place], [address], 10/01/2023 14:03:55 lipid panel, serum 2023 024 [email or web address] [facility], [address], [address], [place], [address], 10/01/2023 14:03:56 vitamin D, 25-hydrox y, total, serum 2023 024 [facility], [address], [address], [place], [address], 10/01/2023 14:03:56 vitamin A (retinol) , serum 2023 024 [email or web address] [facility], [address], [address], [place], [address], 10/01/2023 14:03:56 vitamin E, serum 2023 024 [facility], [address], [address], [place], [address], 10/01/2023 14:03:56 PTH (parathyr oid hormone), intact, serum or plasma 2023 024 [email or web address] [facility], [address], [address], [place], [address], 10/01/2023 14:03:56 TSH + free T4, serum 2023 024 [email or web address] [facility], [address], [address], [place], [address], 10/01/2023 14:03:56 folate, serum 2023 024 [facility], [address], [address], [place], [address], 10/01/2023 14:03:56 methylmal hang, QN, serum or plasma 2023 024 [email or web address] [facility], [address], [address], [place], [address], 10/01/2023 14:03:57 thiamine, QN, blood 2023 024 [email or web address] [facility], [address], [address], [place], [address], 10/01/2023 14:03:57 Referral None recorded. Procedures None recorded. Surgeries esophagog astroduod enoscopy (SURG) 2023 024 [email or web address] Taty Richards MD, [address], [address], [place], [address], 01/04/2024 13:17:44 Imaging US, renal 2024 025 [email or web address] [facility] Sched[facility], [address], [place], [address], 10/04/2024 14:51:05 XR, kidney + ureter + bladder 2024 025 [email or web address] [facility] (Centralized Scheduling), [address] , [place], [address], 08/03/2024 10:23:14 XR, chest, 2 view 2023 024 [email or web address] [facility] (Centralized Scheduling), [address], [place], [address], 10/01/2023 14:03:28 electroca rdiogram, routine ECG, 12 leads min 2023 024 [email or web address] Not available 10/01/2023 13:49:45 Medication Orders None recorded. Patient Targets Encounter Date Encounter Id Patient Goals Patient Target Last Modified By Organization Details Last Modified Time 09/07/2023 [id number] 1. Start keeping food records 2. Decrease eating out to 2-3 times a week 3. Drink 64 oz fluid/day, decrease OJ to 4oz 4. Physical activity 3 times a week for 15 minutes 5. Review manual for meal and snack ideas [email or web address] Not available 09/07/2023 16:35:30 Patient InstructionsNo instructions recorded. Reason for Referral None Reported. Results Created Date Observation Date Name Description Value Unit Range Abnormal Flag Note LastModifiedBy Organization Detail LastModifiedTime 08/04/1908/03/2024 CALCI UM TOTAL calcium 8.6 mg/dL 8.5-10 .5 Not Available [facility] ([facility]) [address] , [place], [address], 08/03/2024 11:48:26 08/04/19 25 08/03/2024 PHOSP HOROU S phosphorus 3.2 mg/dL 2.5-4. 9 Not Available [facility] ([facility]) [address] , [place], [address], 08/03/2024 11:48:27 08/04/19 25 08/03/2024 URIC ACID uric acid 4.2 mg/dL 2.6-6. 0 Not Available [facility] ([facility]) [address] , [place], [address], 08/03/2024 12:13:16 08/04/19 25 08/04/2024 PTH, INTAC T PTH, intact 59 pg/mL 15-65 Perfo rmed at: - [facility] [place] [address] Lab Direc tor: Cristian sloan PhD, Phone : [phone] Not Available [facility] ([facility]) [address], [place], [address], 08/04/2024 11:13:13 07/27/19 25 07/25/2024 CT, abdom en + pelvi s, w/o contr ast No observ ation record ed. [facility] (Med Record) [address], [place], [address], 07/27/2024 09:03:28 Result Notes None recorded. Problems Name Problem SNOMED Code Status Onset Date Resolution Date Notes Provider Name and Address Organization Details Recorded Time Ureteric stone 21167388 Active 2024 KACY DON MD [address], [place], [address] , [place] - [facility] - [place] & [place] 5 10:22:34 Essential hypertension 40555743 Active 2023 RICCARDO Lozano [address], [place], [address] , [place] - [facility] - [place] & [place] 4 09:01:10 Dyslipidemia 702405656 Active 2023 RICCARDO Lozano [address], [place], [address] , [place] - [facility] - [place] & [place] 4 09:03:02 Iron deficiency 23703881 Active 2023 RICCARDO Lozano [address], [place], [address] , [place] - [facility] & [place] 4 09:03:05 Hyperparathyr oidism 44977129 Active 2023 RICCARDO Lozano [address], [place], [address] , [place] - [facility] & [place] 4 09:03:12 Obesity 652109391 Active [address], [place], [address] , [place] - [facility] - [place] & [place] 4 09:03:25 Disorder of function of stomach 645507510 Active [address], [place], [address] , [facility] & [place] 14:08:55 Obstructive sleep apnea syndrome 03098435 Active 2023 RICCARDO Lozano [address], [place], [address] , [facility] & [place] 14:09:55 Problem Notes None recorded. Procedures Surgical History Date Name Laterality Status Provider Name and Address Organization Details Recorded Time Cystoscopy-Fem krissy completed KACY DON MD [address], [place], [address], [facility] & [place] 08/03/2024 10:23:31 biopsy of breast completed Giovanna Birmingham [facility] & [place] 09/07/2023 11:16:50 extraction of wisdom tooth completed Giovanna Birmingham [facility] [place] & [place] 09/07/2023 11:16:57 hernia repair completed RICCARDO Bhandari [address], [place], [address], [facility] & [place] 09/07/2023 14:09:37 Imaging Results None recorded. Procedure Notes Documentation Provider Name and Address Organization Details Recorded Time Consult History and Physical [facility] Name María Mahajan Date of Service 0748 [id number] (F) Attending MARSHA Balderas Admitted [id number] Discharged Primary NO DEFINED PRIMARY C - Chief Complaint Left flank pain History of Present Illness Patient is a 49-year-old female with no prior stone history, received as a transfer from [facility] for ongoing left flank pain. She began [...] (ZOLOFT) 200 MG PO DAILY NOZIN NASAL CONCRETE BUSTER OPERATOR POPSWAB 1 EA NASAL BID APPLY TO EACH NOSTRIL metoprolol succin (TOPROL XL) 100 MG PO DAILY levothyroxine (SYNTHROID) 75 MCG PO DAILY sodium chloride 0.9% FLUSH 10 ML IV PUSH PRN for FLUSH IV LINE promethazine (PHENERGAN) 25 MG/ML 12.5 MG IV PUSH Q6HPRN for NAUSEA VOMITING 1 of 3 Consult History and Physical [facility] Name María Mahajan Date of Service 0748 [id number] (F) Attending MARSHA Balderas Admitted [id number] Discharged Primary NO DEFINED PRIMARY C - IF REFRACTORY TO ZOFRAN ondansetron (ZOFRAN) INJ [...] Abdomen soft Left Flank pain Lab Results 0528 AYAN NA 138 K 3.9 CHLORIDE 104 [...] (H) BASO# 0.0 IG# 0.04 NRBC# 0.00 MANDIFF No Procedures and Surgeries None Assessment/Plan 2 of 3 Consult History and Physical [facility] Name María Mahajan Date of Service 0748 [id number] (F) Attending MARSHA Balderas Admitted [id number] Discharged Primary NO DEFINED PRIMARY C - Left hydronephrosis/flank pain due to 8 mm [...] plan. Electronically signed by ARIAN MCKEE on 075 3 of 3 CC'ed Logic: Ordering Provider: ARIAN Arce, RADHA, [address], [place], [address], [facility] & [place] 07/27/2024 11:20:25 Medical Equipment None Reported. Allergies No known [...] Updated DateTime 5 172.72 cm 44.7 kg/m2 206681. 16 g 97 % 97 % 67 /min 132 mm[Hg] 74 mm[Hg] Deana Mabry [place] - [facility] & [place] 5 10:06:27 Date Recorded Body height Body mass index (BMI) Body weight Body temperature Heart rate Systolic blood pressure Diastolic blood pressure Provider Name and Address Organization Details Last Updated DateTime 4 172.72 cm 49.5 kg/m2 759886. 32 g 98.3 [degF] 60 /min 166 mm[Hg] 85 mm[Hg] Kasie Caballero [place] - [facility] & [place] 4 13:48:51 Social History None recorded. Functional Status Question Answer Note LastModified by Organization D etails LastModified Time What is your level of alcohol consumption? None [email or web address] Information not available 09/07/2023 Mental Status None [...] SNOMED-CT Code Diagnosis ICD10 Code Diagnosis Note [id number] RICCARDO Lozano [facility] n Bariatric s and Adv Surg [address] [facility] [address] [place] [address] 09/07/2023 11:31:58 09/07/2023 14:21:54 Essential hypertension 43272855 I10 Dyslipidemia 998705318 E 78.5 Iron deficiency 63337015 E61.1 Hyperparathyroidism 6699 9008 E21.3 Obesity 057253907 E66.9 Weight loss surgery options discussed at [...] testing has been completed Pre-surger y evaluation 817820450 Z01.818 Disorder o f function of stomach 654444837 K31.89 Obstructiv e sleep apnea syndrome 72570669 G47.[address], LD [facility] [address] [facility] [address] [place] [address] 09/07/2023 15:04:06 09/08/2023 10:44:50 Essential hypertension 26429059 I10 Obstructiv e sleep apnea syndrome 84545096 G47.33 Morbid obesity 529439434 E66.01 BMI 49.[id number], LD [facility] [address] [facility] [address] [place] [address] 10/08/2023 11:42:36 10/08/2023 13:00:11 Essential hypertension 74945382 I10 Obstructiv e sleep apnea syndrome 13317883 G47.33 Morbid obesity 223441289 E66.01 Unintentio nal weight gain 1254721126 62820 R63.5 [id number] KACY DON MD [facility] Urology-1 00 [address] [facility] [address] [place] [address] 08/03/2024 09:38:35 08/03/2024 10:29:15 Ureteric stone 23410008 N20.1 Health Concerns Section Related Observation LastModified by Organization Detai ls LastModified Time None Recorded Concern Status LastModified by Organization Details LastModified Time None Recorded Advance Directives Directive None Recorded Payers Insurance Date Sequence Insurance Name Policy Number Policy Crocker Covered Member ID Crocker Member ID Guarantor Name 08/03/2024 1 [facility] (MEDICARE REPLAC[place]/AD VANTAGE - HMO) [id number] María Mahajan [id number] María Mahajan 08/03/2024 2 [facility] María Mahajan [id number] María Heri 08/03/2024 1 [place] [facility] (MEDICARE REPLACEMENT REGIONAL O) [id number] María Mahajan [id number] María Mahajan Notes Date Note Type Note Provider Name [...] physical hunger, makes me happy. RICCARDO Lozano [address], [place], [address], [facility] - [place] - [place] & [place] 09/07/2023 14:48:49 4 text/html Intake Template RDN [...] skipsL: Eats out, chicken sand, burger, pizzaD: Tripp, chicken and dumplins, spaghettiSnacks: chips Eating out: [...] and monitor PRN. MARÍA SHELL RD, LD [address] , [place], [address], [facility] & [place] 09/07/2023 16:35:42 4 text/html RDN met w/ [...] numbness with walking. EWELINA MON RDN, LD [address] [facility], [place], [address], [facility] & [place] 10/08/2023 13:58:45 5 text/plai n Operative/Procedure Note [facility] Name María Mahajan Date of Service 0841 [id number] (F) Attending MARSHA Balderas Admitted [id number] Discharged Primary STONE Seo - Pre-Procedure Diagnosis Kidney stone Post- Procedure Diagnosis Kidney stone Procedure / Surgery None 1. Cystoscopy with left ureteral catheterization (CPT 39484) 2. Left retrograde pyelogram (CPT 12524) 3. Left ureteroscopy with laser lithotripsy and stent placement (CPT 33240) 4. Left ureteroscopy with basket stone extraction (CPT 03702) 5. Fluoroscopy time less than 1 hour with intraoperative interpretation of imaging (CPT 50244) Anesthesia Type General anesthesia Estimated Blood Loss [...] orifice. This was catheterized with a 5 [place] open-ended Haugan catheter (CPT 70153). We then injected half-strength contrast in a retrograde fashion to perform left retrograde pyelogram. (CPT 00212). Contrast filled the entire collecting system with obvious filling defect corresponding to the 8 mm stone in the left UPJ. At this time, we then advanced 2 sensor tip guidewires in a retrograde fashion under fluoroscopic guidance (CPT 45598). A 12/14 [place] ureteral access sheath was then advanced to the proximal left ureter under fluoroscopic guidance. We then introduced the flexible ureteroscope and advanced this into the ureter until we reached the stone. Using a 200 micron fiber we performed laser lithotripsy (CPT 19455). Several stone fragments were pushed up into the renal pelvis into an upper pole calyx. Once the stone was broken into numerous smaller fragments, we withdrew the ureteroscope in the laser fiber. We then reinserted the flexible ureteroscope along with the ZeroTip Nitinol basket and subsequently removed all significant fragments which were then passed off the field and sent for analysis (CPT 09293). Once all fragments were removed, we slowly withdrew the ureteroscope down the full length of the left ureter with no signs of ureteral injury or additional stone fragments. We then reinserted the rigid cystoscope and advanced a 6 [place]ican by 24 cm double-J ureteral stent over our remaining guidewire under fluoroscopic guidance. We slowly withdrew the wire and visualized the proximal coil in the left renal pelvis under fluoro with the distal coil directly visualized in the bladder lumen. The bladder was drained through the cystoscope sheath and viscous lidocaine 1 of 2 Operative/Procedure Note [facility] Name María Mahajan Date of Service 0841 [id number] (F) Attending MARSHA Balderas Admitted [id number] Discharged Primary STONE LEE W - 2% gel was instilled in urethra. The procedure was terminated, the patient was awoken and transferred to the PACU in stable condition. Specimens Left ureteral stone fragments Tubes/Drains None Implants Left ureteral stent Disposition of Patient Stable to PACU Electronically signed by ARIAN MCKEE on 0846 2 of 2 CC'ed Logic: Ordering Provider: ARIAN Arce, RADHA, S [address] [facility], [place], [address], [place] - [place] - [place] & [place] 07/31/2024 08:19:12 5 text/html 08/03/24 CC: 73-pite-vam-female present as new patient for cystoscopy w/L stent removal. María Mahajan is a 49-year-old female who presents for [...] will be performed using a kit from [employer]. An ultrasound will be ordered six weeks post-procedure to ensure there is no scar tissue causing kidney blockage. A follow-up appointment is scheduled in six months, with a plain X-ray to be done prior to the visit. 07/28/24 L URS, laser, L stent07/27/24 Cr 1.3, GFR 50, Hgb 9.1, Hct 30.704 CT abd/pel w/o ([facility]): several bilateral renal collecting system calcification's, [...] is like a cyst KACY DON MD [address], [place], [address], [facility] - [place] & [place] 08/03/2024 14:16:08 OBGyn Episode No OBEpisode recorded.
--- OUTSIDE RECORDS SUMMARY | 2024-10-06 09:13 | XMS_ITS | Encounter Summary ---
Author [place] [address] Care Team Providers Care Customer Care Consultant Name Role Phone Mónica Adler APRN Primary Care Provider [phone] Reason for Visit * Reason Onset Date Comments Medication Refill 09/08/2024 Encounter Details Date Type Department Care Team (Late st Contact Info) Description 09/08/2024 Refill [facility] [address] [place] [address] Mónica Adler APRN [address] [facility] [place] [address] Medication Refill Social History Tobacco Use [...] documented as of this encounter Care Teams Customer Care Consultant Relationship Specialty Start Date End Date Mónica Adler APRN [address] [place] [address] PCP - General Nurse Practitioner-Family 12/08/16 documented as of this encounter
--- OUTSIDE RECORDS SUMMARY | 2024-10-06 09:13 | XMS_ITS | Encounter Summary ---
Author [place] [address] Care Team Providers Care School Program Director Name Role Phone Mónica Adler APRN Primary Care Provider [phone] Reason for Visit * Reason Onset Date Comments Orders 08/16/2024 venofer Encounter Details Date Type Department Care Team (Late Contact Info) Description 08/16/2024 Telephone [facility] [address] [place] [address] Mónica Adler APRN [address] [place] [address] Orders (venofer) Social History Tobacco Use [...] Assessment Author No 08/18/2023 9:51 AM EDT Chandrika Zimmerman CCMA * Because of a physical, [...] Request Who is requesting the Order(s): Other [facility] What Orders are being requested: Other need the order for venofer faxed. they have received the referral but not the order Reason Orders are Needed (Diagnosis): iron deficiancy If non-[facility], where should the order be faxed: [phone] Return Method of Communication: Phone Call Additional [...] on filedocumented in this encounter Care Teams School Program Director Relationship Specialty Start Date End Date Mónica Adler APRN [address] [place] [address] PCP - General Nurse Practitioner-Family 12/08/16 documented as of this encounter
== END ==
LOC: SL 09:09
PROVIDERS: PCP Physician Assistant; Visit Provider Physician Assistant
DX: E66.01 Morbid (severe) obesity due to excess calories (principal); R53.83 Other fatigue; G47.36 Sleep related hypoventilation in conditions classified elsewhere
CPT/HCPCS: G0399

== ENCOUNTER 2024-11-01 08:05 | Outpatient (CLI) | payer MEDICARE, OTHER, SELFPAY ==
--- OUTSIDE RECORDS SUMMARY | 2024-11-01 08:10 | XMS_ITS | Encounter Summary ---
Author [place] [address] Care Team Providers Care Yard Stocker Name Role Phone Mónica Adler APRN Primary Care Provider [phone] Reason for Visit * Reason Onset Date Comments Results 09/22/2024 Encounter Details Date Type Department Care Team (Late st Contact Info) Description 09/22/2024 Telephone [facility] [address] [place] [address] Mónica Adler APRN [address] [facility] [place] [address] Results Social History [...] Miscellaneous Notes * Telephone Encounter - Mónica Adlre APRN - 09/22/2024 5:23 PM EDT Received results of thyroid ultrasound. Her nodule has increased in size. Does not have any new nodules I do recommend seeing ENT due to the large size of nodule. There is an ENT group that goes to [facility] if she would like to see them. [...] on filedocumented in this encounter Care Teams Yard Stocker Relationship Specialty Start Date End Date Mónica Adler [place] [place] [address] PCP - General Nurse Practitioner-Family 12/08/16 documented as of this encounter
--- OUTSIDE RECORDS SUMMARY | 2024-11-01 08:12 | XMS_ITS | Encounter Summary ---
Author Organization [place] [address] Care Team Providers Care Assistant Chief Nursing Officer Name Role Phone Mónica Adler PIE ICER MACHINE Primary Care Provider [phone] Reason for Visit * Reason Onset Date Comments Medication Refill 10/10/2024 Encounter Details Date Type Department Care Team (Late st Contact Info) Description 10/10/2024 Refill [facility] [address] [place] [phone] Mariusz Junior MD [address] [place] [address] [place] [address] Medication Refill Social History Tobacco Use Types [...] Refills Last Filled Start Date End Date diclofenac sodium (VOLTAREN) 50 mg Oral Tablet, Delayed Release (E.C.)Indications:D egenerative disc disease, cervical,Degenerati ve disc disease, lumbar TAKE 1 TABLET BY MOUTH TWICE DAILY WITH FOOD NEEDED FOR PAIN 60 Tablet 2 10/11/2024 documented in this encounter Plan of Treatment Not on file documented as of this encounter Goals Goal Patient Goal Type Associated Problems Recent Progress Patient-Stated? Author Blood Pressure < 140/90 Blood Pressure 122/78(2024 9:53 AM EST) Mohini Jimenez RMA Maintain a healthy diet, exercise regularly and maintain an ideal body weight General Mohini Jimenez RMA documented as of this encounter Visit Diagnoses Diagnosis Degenerative disc disease, cervical Degeneration of cervical intervertebral disc Degenerative disc disease, lumbar Degeneration of lumbar or lumbosacral intervertebral disc documented in this encounter Discontinued Medications Medication Sig Discontinue Reason Start Date End Da te diclofenac sodium (VOLTAREN) 50 mg Oral Tablet, Delayed Release (E.C.)Indications:Degene rative disc disease, cervical,Degenerative disc disease, lumbar TAKE 1 TABLET BY MOUTH TWICE DAILY WITH FOOD NEEDED FOR PAIN Reorder 09/19/2024 10/10/2024 documented as of this encounter Care Teams Assistant Chief Nursing Officer Relationship Specialty Start Date End Date Mónica Adler APRN [address] [place], [place] [address] PCP - General Nurse Practitioner-Family 12/08/16 documented as of this encounter
--- OUTSIDE RECORDS SUMMARY | 2024-11-01 08:12 | XMS_ITS | Encounter Summary ---
Author Organization [place] [address] Care Team Providers Care Lamp Decorator Name Role Phone Mónica Adler APRN Primary Care Provider [phone] Reason for Visit * Reason Onset Date Comments Medication Refill 10/10/2024 Encounter Details Date Type Department Care Team (Late st Contact Info) Description 10/10/2024 Refill [facility] [address] [place] [phone] Mónica Adler APRN [address] [facility] [place] [address] Medication Refill Social History Tobacco Use [...] as needed. for wheezing 18 g 6 10/11/2024 documented in this encounter Plan of [...] 4 hours as needed. for wheezing Reorder 09/19/2024 10/10/2024 documented as of this encounter Care Teams Lamp Decorator Relationship Specialty Start Date End Date Mónica Adler APRN [address] [place] [address] PCP - General Nurse Practitioner-Family 12/08/16 documented as of this encounter
--- OUTSIDE RECORDS SUMMARY | 2024-11-01 08:12 | XMS_ITS | Encounter Summary ---
Author Organization [place] [address] Care Team Providers Care Rock Loader Name Role Phone Mónica Adler APRN Primary Care Provider [phone] Reason for Visit * Reason Onset Date Comments Medication Refill 10/30/2024 Encounter Details Date Type Department Care Team (Late st Contact Info) Description 10/30/2024 Refill SEP [facility] [address] [place] [phone] Mónica Adler APRN [address] [place] [address] Medication Refill Social [...] Refills Last Filled Start Date End Date LEVOthyroxine (SYNTHROID) 75 mcg Oral TabletIndications: Abnormal thyroid function test Take 1 Tablet by mouth daily. 100 Tablet 2 10/30/2024 albuterol (PROVENTIL HFA;VENTOLIN HFA) 90 mcg/actuation Inhl HFA Aerosol InhalerIndications :History of wheezing Inhale 2 Puffs into the lungs every 4 hours as needed. for wheezing 18 g 6 10/30/2024 documented in this encounter Plan of Treatment [...] history of other diseases of respiratory system Abnormal thyroid function test Nonspecific abnormal results of thyroid function study documented in this encounter Discontinued Medications Medication Sig Discontinue Reason Start Date End Da te albuterol (PROVENTIL HFA;VENTOLIN HFA) 90 mcg/actuation Inhl HFA Aerosol InhalerIndications:Hist ory of wheezing Inhale 2 Puffs into the lungs every 4 hours as needed. for wheezing Reorder 10/11/2024 10/30/2024 LEVOthyroxine (SYNTHROID) 75 mcg Oral TabletIndications:Abnor mal thyroid function test TAKE 1 TABLET BY MOUTH DAILY Reorder 10/30/2024 10/30/2024 documented as of this encounter Care Teams Rock Loader Relationship Specialty Start Date End Date Mónica Adler APRN [address] [place] [address] PCP - General Nurse Practitioner-Family 12/08/16 documented as of this encounter
--- OUTSIDE RECORDS SUMMARY | 2024-11-01 08:12 | XMS_ITS | Encounter Summary ---
Author Organization [place] [address] Care Team Providers Care Boat Joiner Name Role Phone Mónica Adler FILI Primary Care Provider [phone] Reason for Visit * Reason Onset Date Comments Medication Refill 09/18/2024 Encounter Details Date Type Department Care Team (Late st Contact Info) Description 09/18/2024 Refill SEP [facility]ara [address] [place] [phone] Mariusz Junior MD [address] [place] [address] [place] [address] Medication Refill Social History Tobacco Use Types [...] of Assessment Author No 08/18/2023 9:51 AM Kannna Gimenez CCMA documented as of this encounter [...] documented as of this encounter Care Teams Boat Joiner Relationship Specialty Start Date End Date Mónica Adler APRN [address] [place] [address] PCP - General Nurse Practitioner-Family 12/08/16 documented as of this encounter
--- OUTSIDE RECORDS SUMMARY | 2024-11-01 08:12 | XMS_ITS | Encounter Summary ---
Author Organization [place] [address] Care Team Providers Care Manager Fraud Name Role Phone Mónica Adler APRN Primary Care Provider [phone] Reason for Visit * Reason Comments Medication Refill Encounter Details Date Type Department Care Team (Late st Contact Info) Description 10/27/2024 Refill SEP Kiara [address] [place] [address] Mónica Adler APRN [address] [place] [address] Medication Refill Social History Tobacco Use Types [...] of Assessment Author No 08/18/2023 9:51 AM EDChandrika Deleon CCMA documented as of this encounter [...] mcg Oral TabletIndications: Abnormal thyroid function test TAKE 1 TABLET BY MOUTH DAILY 100 Tablet 2 10/30/2024 10/30/2024 documented in this encounter Miscellaneous Notes * Telephone Encounter - Hernandez Coronado CPhT - 10/30/2024 8:24 AM EDT LEVOthyroxine Future Visit: NA Last Assessed Visit: 06/07/24 Follow-Up: 06/07/25 All protocols passed. Refills approved and sent to requesting pharmacy. Routed to [facility] if an appointment is needed. documented in this encounter Plan of Treatment [...] as of this encounter Visit Diagnoses Diagnosis Abnormal thyroid function test Nonspecific abnormal results of thyroid function study documented in this encounter Discontinued Medications Medication Sig Discontinue Reason Start Date End Da te LEVOthyroxine (SYNTHROID) 75 mcg Oral TabletIndications:Abnorm al thyroid function test Take 1 Tablet by mouth daily. 05/09/2024 10/30/2024 documented as of this encounter Care Teams Manager Fraud Relationship Specialty Start Date End Date Mónica Adler APRN [address] [place], [place] [id number] PCP - General Nurse Practitioner-Family 12/08/16 documented as of this encounter
--- OUTSIDE RECORDS SUMMARY | 2024-11-01 08:12 | XMS_ITS | Clinical Summary ---
Author Organization [facility] [place] [facility] Address [address] [place], [place] [address] Phone Care Team Providers Care Process Supervisor Name Role Phone Mónica Adler FILI Primary Care Provider [phone] Allergies No known active allergies Medications calcium carbonate-vitam in D (CALCIUM-VITAMI N D) 500 mg(1,250mg) -200 unit Oral TabletIndicatio ns:Hypocalcemia Take 1 Tablet by mouth 2 times daily. 60 Tablet 3 12/05/19 21 Active FARXIGA 5 mg Oral Tablet Take 5 mg by mouth daily. 08/13/19 24 Active bumetanide (BUMEX) 2 mg Oral TabletIndicatio ns:edema Take 2 mg by mouth daily as needed for Other (water retention.). Indications: visible water retention Active cyclobenzaprine (FLEXERIL) 10 mg Oral TabletIndicatio ns:Degenerative disc disease, cervical,Degene rative disc disease, lumbar Take 1 Tablet by mouth every 8 hours as needed. for muscle spasms 30 Tablet 1 08/19/19 24 Active Additional Information Patient not taking.Reported on 06/07/2024 baclofen 5 mg Oral Tablet Take 1 Tablet by mouth 3 times daily. 10/21/19 24 Active metoprolol succinate ER (TOPROL-XL) 100 mg Oral Tablet Sustained Release 24 hrIndications:E ssential hypertension TAKE 1 TABLET BY MOUTH EVERY DAY 90 Tablet 3 10/25/19 24 Active rosuvastatin (CRESTOR) 5 mg Oral TabletIndicatio ns:Dyslipidemia Take 1 Tablet by mouth nightly. 90 Tablet 3 05/09/19 25 Active iron sucrose (VENOFER) 200 mg iron/10 mL IV Solution Inject 10 mL into the vein every 7 days. 50 mL 07/04/19 25 Active ALPRAZolam (XANAX) 0.5 mg Oral TabletIndicatio ns:Generalized anxiety disorder Take 1 Tablet by mouth 2 times daily as needed for Anxiety. 60 Tablet 1 08/09/19 25 Active sertraline (ZOLOFT) 100 mg Oral TabletIndicatio ns:Generalized anxiety disorder Take 2 Tablets by mouth daily. 180 Tablet 2 09/20/19 25 Active diclofenac sodium (VOLTAREN) 50 mg Oral Tablet, Delayed Release (E.C.)Indicatio ns:Degenerative disc disease, cervical,Degene rative disc disease, lumbar TAKE 1 TABLET BY MOUTH TWICE DAILY WITH FOOD NEEDED FOR PAIN 60 Tablet 2 10/12/19 25 Active tirzepatide, weight loss, (ZEPBOUND) 2.5 mg/0.5 mL SubQ Pen InjectorIndicat ions:ISAAC (obstructive sleep apnea),Nocturna l hypoxia Inject 2.5 mg under the skin once a week. 2 mL 10/26/19 25 Active albuterol (PROVENTIL HFA;VENTOLIN HFA) 90 mcg/actuation Inhl HFA Aerosol InhalerIndicati ons:History of wheezing Inhale 2 Puffs into the lungs every 4 hours as needed. for wheezing 18 g 6 10/31/19 25 Active LEVOthyroxine (SYNTHROID) 75 mcg Oral TabletIndicatio ns:Abnormal thyroid function test Take 1 Tablet by mouth daily. 100 Tablet 2 10/31/19 25 Active LEVOthyroxine (SYNTHROID) 75 mcg Oral TabletIndicatio ns:Abnormal thyroid function test Take 1 Tablet by mouth daily. 90 Tablet 1 05/09/19 25 025 Discontinued Active Problems Patient Care Coordination No te Formatting of this note migh t be different from the original. [place] Controlled substance- alprazolam 0.5 Joseph- as expected [...] Overview (10/22/2023): Followed by spine clinic at [facility] Assessment & Plan (10/22/2023 4:49 PM EDT): [...] HCTZ daily as needed Iron deficiency anemia secon linda to inadequate dietary iron intake 06/25/2021 Overview (12/22/2022): Has seen hematology recently Completed 5 iron infusions. Assessment & Plan (12/22/2022 12:05 PM EDT): Due for follow-up labs. Degenerative disc disease, lumbar 11/21/2019 Assessment & Plan (06/07/2024 12:39 PM EST): Followed by pain mgmt. Assessment & Plan (04/22/2021 10:59 AM EST): Try to get results from [facility] - states she had imaging in the [...] heart failure 08/18/2023 06/07/2024 Overview (08/18/2023): Saw [employer] cards. Per pt she has normal echo, [...] (10/22/2023 4:48 PM EDT): Being followed by [facility]. I believe she would be a [...] Encounters Date Type Department Care Team Description 10/30/2024 Refill SEP [address] [place] [address] Mónica Adler APRN Medication Refill 10/27/2024 Refill SEP [address] [place] [address] Mónica Adler PERSONALIZED LIVING MANAGER NURSE Medication Refill 10/27/2024 Orders Only [address] [place] [address] Chandrika Zimmerman CCMA ISAAC (obstructive sleep apnea); Nocturnal hypoxia 10/10/2024 Refill SEP [address] [place] [address] Mónica Adler APRN Medication Refill 10/10/[address] [place] [address] Mariusz Junior MD Medication Refill 10/09/[address] [place] [address] Mónica Adler APRN Referral ([facility] called requesting add'l info on patient in order to schedule there - please advise) 09/22/[address] [place] [address] Mónica Adler APRN Results 09/18/2024 Refill SEP [address] [place] [address] Móniac Adler APRN Medication Refill 09/18/2024 Refill SEP [address] [place] [address] Mariusz Junior MD Medication Refill 09/08/[address] [place] [address] Mónica Adler APRN Medication Refill 08/16/[address] [place] [address] Mónica Adler APRN Orders (venofer) 08/14/[address] [place] [address] Mónica Adler, FILI Other; Follow Up ([facility] called to f/u on PA status- they're asking to have this faxed to them MIN to be able to get pt scheduled. Please call the NEW # above to advise status .) 08/07/[address] [place] [address] Mónica Adler, PERSONALIZED LIVING MANAGER NURSE Medication Refill from Last 3 Months Immunizations [...] Attack Father Tom greenfield age 67 - [place] Vision Loss Father Tom green[place] No Known Problems Maternal Grandfather No [...] 08/07/2024 Pap Smear 08/07/2024 08/07/2021 Influenza Vaccine (#1) 2024 2, 03/21/2020 Breast Cancer Screening 12/30/2024 12/31/19 23, 12/18/2020, 11/19/2018 Wellness Exam Medicare 06/08/2025 06/07/2024 [...] Procedure Name Priority Date/Time Associated Diagnosis Comments MAMMOGRAPHY Routine 12/30/2022 7:23 AM EDT COLOGUARD Routine 09/16/2022 10:30 PM EDT Special screening for malignant neoplasms, colon Screening for malignant neoplasm of the rectum HEAD SAWYER AUTOMATIC CYTOLOGY REQUEST (PAP ONLY) Routine 08/07/2021 1:45 PM EDT Cervical cancer screening from Last 3 Months or Most Recently Relevant to Health Maintenance Results * MAMMOGRAPHY (12/30/2022 7:23 AM EDT) us Historical [...] (Haider Kelly al, N Engl J Med 2014;370(14):8002-1780) The normal value (reference range) for this assay is negative. COLOGUARD RE-SCREENING RECOMMENDATION: Periodic colorectal cancer screening is an important part of preventive healthcare for asymptomatic individuals at average risk for colorectal cancer. Following a negative Cologuard result, the [employer] [place] [employer] and U.S. Multi-Society Task Force screening guidelines recommend a Cologuard re-screening interval of 3 years. References: [employer] [place] [employer] Guideline for Colorectal Cancer Screening: https://www.cancer.org/cancer/aoxku-jeooqy-gvrttj/eklrbrkuv-nlzkqvdni-jdlfwid/ac s-rec ommendations.html.; Calin DK, Mary EMERSON, Marco Antonio HallK, Colorectal Cancer Screening: Recommendations for Physicians and Patients from the U.S. Multi-Society Task Force on Colorectal Cancer Screening , Am J Gastroenterology 2017; 112:4826-6667. TEST DESCRIPTION: Composite algorithmic analysis of stool [...] screened with both Cologuard and colonoscopy. (Haider TMerline et al, N Engl J Med 2014;370(14):4678-2255.) Cologuard may produce a false negative or false positive result (no colorectal cancer or precancerous polyp present at colonoscopy follow up). A negative Cologuard test result does not guarantee the absence of CRC or advanced adenoma (pre-cancer). The current Cologuard screening interval is every 3 years. ([employer] [place] [employer] and U.S. Multi-Society Task Force). Cologuard performance data in a 10,000 patient pivotal study using colonoscopy as the reference method can be accessed at the following location: www.[employer]/results. Additional description of the Cologuard test process, warnings and precautions can be found at www.Modern Feedrd.InfiKno. Stool 09/16/2022 10:3 0 PM EDT 09/18/2022 8:25 PM EDT Mónica Adler APRN [employer] - ORDERABLES Final Result Performing Organization Address City/State/[facility] Co de Phone Number [facility], [address] Gener[employer]tor [address] [place] [address] [place] [address] * HEAD SAWYER AUTOMATIC CYTOLOGY REQUEST (PAP ONLY) (08/07/2021 1:45 PM EDT) CASE REPORT Gynecologic Cytology Report Case: [id number] Authorizing Provider: Mónica Adler APRN Collected: 08/07/2021 1345 Ordering Location: [facility] Received: 08/07/2021 1345 First Screen: Sandra Calhoun CT Rescreen: Yohana Richey CT Specimen: LIQUID-BASED PAP - CERVICAL/ENDOCERV ICAL, Cervix, Endocervical 08/12/2021 3:28 PM EDT [facility] PAP FINAL DIAGNOSIS Negative for intraepithelial lesion or malignancy 08/12/2021 3:28 PM EDT [facility] at 1528 EDT MICROSCOPIC DESCRIPTION Microscopic examination is performed and the findings corroborate the diagnosis. 08/12/2021 3:28 PM EDT [facility] PAP SMEAR ADEQUACY Satisfactory for evaluation 08/12/2021 3:28 PM EDT [facility] SPECIMEN LIMITATIONS Obscured by inflammation 08/12/2021 3:28 PM EDT [facility] PAP ORGANISMS NOTED Abundant bacteria present. 08/12/2021 3:28 PM EDT [facility] ENDOCERVICAL T-ZONE Transformation zone absent. 08/12/2021 3:28 PM EDT [facility] EMBEDDED IMAGES 3:28 PM EDT [facility] PAP DISCLAIMER This case was not successfully imaged due to technical reasons and was manually rescreened. The Pap Smear is a screening test that aids in the detection of cervical cancer and cancer precursors. Both false positive and false negative results can occur. The test should be used at regular intervals, and positive results should be confirmed before definitive therapy. Processed using the [employer] NetzwerkePrep Concrete Bucket Hooker Automated cytology screening device (goTenna). 08/12/2021 3:28 PM EDT [facility] Thin Prep ENDOCERVICAL STRUCTURE / Unknown 08/07/2021 1:45 PM EDT 08/07/2021 1:45 PM EDT Mónica Adler PERSONALIZED LIVING MANAGER NURSE CYTOLOGY ORDERABLES Final R esult Performing Organization Address City/State/[facility] Co de Phone Number [facility] [address] [phone] from Last 3 Months or Most Recently Relevant to Health Maintenance Insurance [facility] [address] [facility] DUAL COMPLETE HMO [place] [facility] [place] [address] [facility] [place] [address] Care Teams Process Supervisor Relationship Specialty Start Date End Date Mónica Adler APRN [address] [place] [address] PCP - General Nurse Practitioner-Family 12/08/16
--- OUTSIDE RECORDS SUMMARY | 2024-11-01 08:12 | XMS_ITS | Encounter Summary ---
Author Organization [place] [address] Care Team Providers Care Bobbin Handler Name Role Phone Mónica Adler APRN Primary Care Provider [phone] Reason for Visit * Reason Onset Date Comments Orders 08/16/2024 venofer Encounter Details Date Type Department Care Team (Late st Contact Info) Description 08/16/2024 Telephone SEP [facility]ara [address] [place] [address] Mónica Adler APRN [address] [place] [address] Orders (venofer) Social History Tobacco Use [...] Request Who is requesting the Order(s): Other [facility] What Orders are being requested: Other need the order for venofer faxed. they have received the referral but not the order Reason Orders are Needed (Diagnosis): iron deficiancy If non-[facility], where should the order be faxed: [phone] Return Method of Communication: Phone Call Additional [...] on filedocumented in this encounter Care Teams Bobbin Handler Relationship Specialty Start Date End Date Mónica Adler APRN [address] [place] [address] PCP - General Nurse Practitioner-Family 12/08/16 documented as of this encounter
--- OUTSIDE RECORDS SUMMARY | 2024-11-01 08:12 | XMS_ITS | Encounter Summary ---
Author Organization [place] [address] Care Team Providers Care Furnace Installer Helper Name Role Phone Mónica Adler APRN Primary Care Provider [phone] Reason for Visit * Reason Onset Date Comments Referral 10/09/2024 [facility] called requesting add'l info on patient in order to schedule there - please advise Encounter Details Date Type Department Care Team (Late Contact Info) Description 10/09/2024 Telephone SEP [facility]ara [facility] [address] [place] [place] [place] [address] Mónica Adler APRN [address] [place] [address] Referral ([facility] called requesting add'l info on patient in order to schedule there - please advise) Social History Tobacco Use Types Packs/Day Years [...] EDKannan Deleon CCMA documented in this encounter Miscellaneous Notes * Telephone Encounter - Jimi Nelson MA - 10/10/2024 2:55 PM EDT Faxed * Telephone Encounter - Mónica Adler APRN - 10/10/2024 1:43 PM EDT Please send demographic form so they have contact information. Also put on sleep clinic referral - she needs sleep study for chronic fatigue, snoring, obesity, suspected sleep apnea and fax back to them. * Telephone Encounter - Jimi Nelson MA - 10/09/2024 3:30 PM EDT GARIMA, she is seeing you on 10/11 * Telephone Encounter - GangaTiffanie smith - 10/09/2024 3:22 PM EDT Select the most appropriate reason for this telephone message: Referral Request Who is requesting the referral: Other [facility] What type of referral: REF99 - AMB REFERRAL TO SLEEP STUDIES/MEDICINE none 1 1 [id number] (CPT??) - AL OFFICE/OUTPATIENT NEW MODERATE MDM 45 MINUTES none What is the reason / diagnosis for this referral:R29.818 (ICD-10-CM) - 781.99 (ICD-9-CM) - Suspected sleep apnea Have you been seen by your PCP for this issue: Yes Does patient have a preference on a group/provider: Yes (if yes, complete preferred provider info below) Preferred Provider/Group Name: [facility] Preferred Provider/Group Preferred Provider/Group Return Method of Communication: Phone Call Additional Information: they are requesting add'l info for the patient including alternate phone numbers. They rec'd the referral from us, but no OV notes to support why we need her tested and if shehas any kind of sleep study history . They need this info in order to bring her in over there. Please fax this info so they can reach out to get her scheduled. documented in this encounter Plan of Treatment [...] on filedocumented in this encounter Care Teams Furnace Installer Helper Relationship Specialty Start Date End Date Mónica Adler APRN [address] [place] [address] PCP - General Nurse Practitioner-Family 12/08/16 documented as of this encounter
--- OUTSIDE RECORDS SUMMARY | 2024-11-01 08:12 | XMS_ITS | Encounter Summary ---
Author Organization [place] [address] Care Team Providers Care Manager Truck Name Role Phone Mónica Adler APRN Primary Care Provider [phone] Reason for Visit * Reason Onset Date Comments Medication Refill 09/08/2024 Encounter Details Date Type Department Care Team (Late st Contact Info) Description 09/08/2024 Refill SEP [facility]ara [address] [place] [phone] Mónica Adler APRN [address] [place] [address] Medication Refill Social [...] as of this encounter Care Teams Manager Truck Relationship Specialty Start Date End Date Mónica Adler APRN [address] [place] [address] PCP - General Nurse Practitioner-Family 12/08/16 documented as of this encounter
--- OUTSIDE RECORDS SUMMARY | 2024-11-01 08:12 | XMS_ITS | Encounter Summary ---
Author [place] [address] Care Team Providers Care Electronic Parts Designer Name Role Phone Mónica Adler APRN Primary Care Provider [phone] Encounter Details Date Type Department Care Team (Late st Contact Info) Description 10/27/2024 Orders Only SEP Kiara [address] [place] [address] Chandrika Zimmerman CCMA ISAAC (obstructive sleep apnea); Nocturnal hypoxia Social History Tobacco Use Types Packs/Day Years [...] Kannan Gimenez CCMA documented in this encounter Plan of Treatment [...] as of this encounter Visit Diagnoses Diagnosis ISAAC (obstructive sleep apnea) Obstructive sleep apnea (adult) (pediatric) Nocturnal hypoxia Hypoxemia documented in this encounter Care Teams Electronic Parts Designer Relationship Specialty Start Date End Date Mónica Adler APRN [address] [place] [address] PCP - General Nurse Practitioner-Family 12/08/16 documented as of this encounter
--- OUTSIDE RECORDS SUMMARY | 2024-11-01 08:12 | XMS_ITS | Data Portability ---
Author Organization [place] - [facility] - [place] & RAMILA Pang ADMIN Address [address] [place] [phone] Care Team Providers Care Linoleum Mechanic Name Role Phone ORSA RITTER Primary Care Provider Assessment Encounter Date [...] [email or web address] [facility], [address], [address], [place], [address], 08/10/2024 13:41:56 uric acid, serum or plasma 2024 025 [email or web address] [facility], [address], [address], [place], [address], 08/10/2024 13:41:57 phosphoru s, serum or plasma 2024 025 [email or web address] [facility], [address], [address], [place], [address], 08/03/2024 11:48:27 CBC w/ auto diff 2023 024 [email or web address] [facility], [address], [address], [place], [address], 10/01/2023 14:03:55 iron + TIBC + ferritin, serum 2023 024 [email or web address] [facility], [address], [address], [place], [address], 10/01/2023 14:03:55 copper, serum or plasma 2023 024 [email or web address] [facility], [address], [address], [place], [address], 10/01/2023 14:03:57 CMP, serum or plasma 2023 024 [facility], [address], [address], [place], [address], 10/01/2023 14:03:55 HbA1c (hemoglob in A1c), blood 2023 024 [email or web address] [facility], [address], [address], [place], [address], 10/01/2023 14:03:55 lipid panel, serum 2023 024 [email or web address] [facility], [address], [address], [place], [address], 10/01/2023 14:03:56 vitamin D, 25-hydrox y, total, serum 2023 024 [email or web address] [facility], [address], [address], [place], [address], 10/01/2023 14:03:56 vitamin A (retinol) , serum 2023 024 [facility], [address], [address], [place], [address], 10/01/2023 14:03:56 vitamin E, serum 2023 024 [email or web address] [facility], [address], [address], [place], [address], 10/01/2023 14:03:56 PTH (parathyr oid hormone), intact, serum or plasma 2023 024 [email or web address] [facility], [address], [address], [place], [address], 10/01/2023 14:03:56 TSH + free T4, serum 2023 024 [email or web address] [facility], [address], [address], [place], [address], 10/01/2023 14:03:56 folate, serum 2023 024 [email or web address] [facility], [address], [address], [place], [address], 10/01/2023 14:03:56 methylmal hang, QN, serum or plasma 2023 024 [email or web address] [facility], [address], [address], [place], [address], 10/01/2023 14:03:57 thiamine, QN, blood 2023 024 [email or web address] [facility], [address], [address], [place], [address], 10/01/2023 14:03:57 Referral None recorded. Procedures None recorded. Surgeries esophagog astroduod enoscopy (SURG) 2023 024 Taty Richards MD, [address], [address], [place], [address], 01/04/2024 13:17:44 Imaging US, renal [email or web address] [place] [address] Scheduling, [address], [place], [address], 10/26/2024 10:54:28 XR, kidney + ureter + bladder 2024 025 [email or web address] [facility] (Centralized Scheduling), [address], [place], [address], 08/03/2024 10:23:14 XR, chest, 2 view 2023 024 [email or web address] [facility] (Centralized Scheduling), [address], [place], [address], 10/01/2023 14:03:28 electroca rdiogram, routine ECG, 12 leads min 2023 024 [email or web address] Not available 10/01/2023 13:49:45 Medication Orders None recorded. Patient Targets Encounter Date Encounter Id Patient Goals Patient Target Last Modified By Organization Details Last Modified Time 09/07/2023 [id number] 1. Start keeping food records 2. Decrease [...] calcium 8.6 mg/dL 8.5-10 .5 Not Available [facility] ([facility]) [address] , [place], [address], 08/03/2024 11:48:26 08/04/19 25 08/03/2024 PHOSP HOROU S phosphorus 3.2 mg/dL 2.5-4. 9 Not Available [facility] ([facility]) [address] , [place], [address], 08/03/2024 11:48:27 08/04/19 25 08/03/2024 URIC ACID uric acid 4.2 mg/dL 2.6-6. 0 Not Available [facility] ([facility]) [address] , [place], [address], 08/03/2024 12:13:16 08/04/19 25 08/04/2024 PTH, INTAC T PTH, intact 59 pg/mL 15-65 Perfo rmed at: - [facility] [place] [address] Lab Direc tor: Cristian sloan PhD, Phone : [phone] Not Available [facility] ([facility]) [address], [place], [address], 08/04/2024 11:13:13 07/27/19 25 07/25/2024 CT, abdom en + pelvi s, w/o contr ast No observ ation record ed. [facility] (Med Record) [address], [place], [address], 07/27/2024 09:03:28 Result Notes None recorded. Problems Name Problem SNOMED Code Status Onset Date Resolution Date Notes Provider Name and Address Organization Details Recorded Time Essential hypertension 10933870 Active 2023 RICCARDO Lozano [address], [place], [address] , [place] - [facility] - [place] & [place] 4 09:01:10 Dyslipidemia 822435218 Active 2023 RICCARDO Lozano [address], [place], [address] , [place] - [facility] - [place] & [place] 4 09:03:02 Iron deficiency 50776956 Active 2023 RICCARDO Lozano [address], [place], [address] , [place] - [facility] - [place] & [place] 4 09:03:05 Hyperparathyr oidism 68842876 Active 2023 RICCARDO Lozano [address], [place], [address] , [place] - [facility] - [place] & [place] 4 09:03:12 Obesity 159406792 Active 2023 RICCARDO Lozano [address], [place], [address] , [place] - [facility] - [place] & [place] 4 09:03:25 Disorder of function of stomach 383750632 Active 2023 RICCARDO Lozano [address], [place], [address] , [place] - [facility] - [place] & [place] 4 14:08:55 Obstructive sleep apnea syndrome 82162211 Active [address], [place], [address] , [facility] - [facility] & [place] 4 14:09:55 Ureteric stone 56475102 Active 2024 KACY DON MD [address], [place], [address] , [facility] - [facility] & [place] 10:22:34 Problem Notes None recorded. Procedures Surgical History Date Name Laterality Status Provider Name and Address Organization Details Recorded Time Cystoscopy-Fem krissy completed KACY DON MD [address], [place], [address], [facility] - [facility] & [place] 08/03/2024 10:23:31 biopsy of breast completed Giovanna Birmingham [facility] & [place] 09/07/2023 11:16:50 extraction of wisdom tooth completed Giovanna VIDES [facility] & [place] 09/07/2023 11:16:57 hernia repair completed RICCARDO Bhandari [address], [place], [address], [place] - [facility] & [place] 09/07/2023 14:09:37 Imaging Results None recorded. Procedure Notes Documentation Provider Name and Address Organization Details Recorded Time Consult History and Physical [facility] Name María Mahajan Date of Service 0748 [id number] (F) Attending MARSHA Balderas Admitted [id number] Discharged Primary NO DEFINED PRIMARY C - Chief Complaint Left flank pain History of Present Illness Patient is a 49-year-old female with no prior stone history, received as a transfer from [facility] for ongoing left flank pain. She [...] (ZOLOFT) 200 MG PO DAILY NOZIN [employer] POPSWAB 1 EA NASAL BID APPLY TO EACH NOSTRIL metoprolol succin (TOPROL XL) 100 MG PO DAILY levothyroxine (SYNTHROID) 75 MCG PO DAILY sodium chloride 0.9% FLUSH 10 ML IV PUSH PRN for FLUSH IV LINE promethazine (PHENERGAN) 25 MG/ML 12.5 MG IV PUSH Q6HPRN for NAUSEA VOMITING 1 of 3 Consult History and Physical [facility] Name María Mahajan Date of Service 0748 [id number] (F) Attending MARSHA Balderas Admitted [id number] Discharged Primary NO DEFINED PRIMARY C - [...] 2 of 3 Consult History and Physical [facility] Name María Mahajan Date of Service 0748 [id number] (F) Attending MARSHA Balderas Admitted [id number] Discharged Primary NO DEFINED PRIMARY C - [...] plan. Electronically signed by ARIAN MCKEE on 0750 3 of 3 CC'ed Logic: Ordering Provider: ARIAN Arce, RADHA, [address], [place], [address], [facility] & [place] 07/27/2024 11:20:25 Medical Equipment None Reported. Allergies [...] blood by Pulse oximetry Heart rate Systolic And Diastolic Provider Name and Address Organization Details Last Updated DateTime 5 172.72 cm 44.7 kg/m2 766951. 16 g 97 % 97 % 67 /min 132/74 mm[Hg] Deana Mabry [place] - [facility] & [place] 5 10:06:27 Date Recorded Body height Body mass index (BMI) Body weight Body temperature Heart rate Systolic And Diastolic Provider Name and Address Organization Details Last Updated DateTime 4 172.72 cm 49.5 kg/m2 951736. 32 g 98.3 [degF] 60 /min 166/85 mm[Hg] Kasie Caballero [place] - [facility] & [place] 4 13:48:51 Social History None recorded. Functional Status Question Answer Note LastModified by Organization D etails LastModified Time What is your level of alcohol consumption? None [email or web address] Information not available 09/07/2023 Mental Status None [...] SNOMED-CT Code Diagnosis ICD10 Code Diagnosis Note [id number] RICCARDO Lozano [facility] [address] [facility] [address] [place] [address] 09/07/2023 11:31:58 09/07/2023 14:21:54 Essential hypertension 31992619 I10 Dyslipidemia 348112383 E 78.5 Iron deficiency 71999812 E61.1 Hyperparathyroidism 6699 9008 E21.3 Obesity 847926367 E66.9 Weight loss surgery options discussed at [...] testing has been completed Pre-surger y evaluation 652838850 Z01.818 Disorder o f function of stomach 775601247 K31.89 Obstructiv e sleep apnea syndrome 39326455 G47.[id number], LD [facility] [address] [facility] [address] [place] [address] 09/07/2023 15:04:06 09/08/2023 10:44:50 Essential hypertension 04197332 I10 Obstructiv e sleep apnea syndrome 53425669 G47.33 Morbid obesity 284558894 E66.01 BMI 49.[id number], LD [facility] [address] [facility] [address] [place] [address] 10/08/2023 11:42:36 10/08/2023 13:00:11 Essential hypertension 34124483 I10 Obstructiv e sleep apnea syndrome 87483878 G47.33 Morbid obesity 339400797 E66.01 Unintentio nal weight gain 5597040989 84036 R63.5 [id number] KCAY DON MD [facility] Urology-[address] [place] [address] 08/03/2024 09:38:35 08/03/2024 10:29:15 Ureteric stone 85813591 N20.1 Health Concerns Section Related Observation LastModified by Organization Detai ls LastModified Time None Recorded Concern Status LastModified by Organization Details LastModified Time None Recorded Advance Directives Directive None Recorded Payers Insurance Date Sequence Insurance Name Policy Number Policy Crocker Covered Member ID Crocker Member ID Guarantor Name 08/03/2024 1 [facility] [[email or web address] PLAN-CT (MEDICARE REPLACEMENT/AD VANTAGE - HMO) [id number] María Brunner Heri [id number] María Mahajan 08/03/2024 2 [facility] (MEDICAID HMO) María Heri [id number] María Heri 08/03/2024 1 [place] SANJAY LOZANO OF [facility] (MEDICARE REPLACEMENT REGIONAL O) [id number] María Heri [id number] María Mahajan Notes Date Note Type Note Provider Name and Address Organization Details Recorded Time 04/18/202 5 text/plai n Operative/Procedure Note [facility] Name María Mahajan Date of Service 0841 [id number] (F) Attending MARSHA Balderas Admitted [id number] Discharged Primary STONE LEE W - Pre-Procedure Diagnosis Kidney stone Post- Procedure Diagnosis Kidney stone Procedure / Surgery None 1. Cystoscopy with left ureteral catheterization (CPT 10515) 2. Left retrograde pyelogram (CPT 19684) 3. Left ureteroscopy with laser lithotripsy and stent placement (CPT 54143) 4. Left ureteroscopy with basket stone extraction (CPT 28426) 5. Fluoroscopy time less than 1 hour with intraoperative interpretation of imaging (CPT 15935) Anesthesia Type General anesthesia Estimated Blood Loss [...] orifice. This was catheterized with a 5 Swiss open-ended Nekoma catheter (CPT 58351). We then injected half-strength contrast in a retrograde fashion to perform left retrograde pyelogram. (CPT 18934). Contrast filled the entire collecting system with obvious filling defect corresponding to the 8 mm stone in the left UPJ. At this time, we then advanced 2 sensor tip guidewires in a retrograde fashion under fluoroscopic guidance (CPT 49304). A 12/14 Swiss ureteral access sheath was then advanced to the proximal left ureter under fluoroscopic guidance. We then introduced the flexible ureteroscope and advanced this into the ureter until we reached the stone. Using a 200 micron fiber we performed laser lithotripsy (CPT 94419). Several stone fragments were pushed up into the renal pelvis into an upper pole calyx. Once the stone was broken into numerous smaller fragments, we withdrew the ureteroscope in the laser fiber. We then reinserted the flexible ureteroscope along with the ZeroTip Nitinol basket and subsequently removed all significant fragments which were then passed off the field and sent for analysis (CPT 55440). Once all fragments were removed, we slowly withdrew the ureteroscope down the full length of the left ureter with no signs of ureteral injury or additional stone fragments. We then reinserted the rigid cystoscope and advanced a 6 Swiss by 24 cm double-J ureteral stent over our remaining guidewire under fluoroscopic guidance. We slowly withdrew the wire and visualized the proximal coil in the left renal pelvis under fluoro with the distal coil directly visualized in the bladder lumen. The bladder was drained through the cystoscope sheath and viscous lidocaine 1 of 2 Operative/Procedure Note [facility] Name María Mahajan Date of Service 0841 [id number] (F) Attending MARSHA Balderas Admitted [id number] Discharged Primary STONE LEE W - 2% gel was instilled in urethra. The procedure was terminated, the patient was awoken and transferred to the PACU in stable condition. Specimens Left ureteral stone fragments Tubes/Drains None Implants Left ureteral stent Disposition of Patient Stable to PACU Electronically signed by ARIAN MCKEE on 0846 2 of 2 CC'ed Logic: Ordering Provider: ARIAN Arce NP, [address] [facility], [place], [address], [facility] - [place] & [place] 07/31/2024 08:19:12 4 text/html Patient presents today for the [...] physical hunger, makes me happy. RICCARDO Lozano [address], [place], [address], [facility] - NT [facility] & [place] 09/07/2023 14:48:49 4 text/html Intake Template RDN [...] skipsL: Eats out, chicken sand, burger, pizzaD: [place], chicken and dumplins, spaghettiSnacks: chips Eating out: [...] monitor PRN. MARÍA SHELL RD, LD [address] [facility], [place], [address], [facility] & [place] 09/07/2023 16:35:42 4 text/html RDN met w/ [...] with walking. EWELINA MON RDN, LD [address] [facility], [place], [address], [facility] & [place] 10/08/2023 13:58:45 5 text/html 08/03/24 CC: [id number]-[id number]-female present as new patient for cystoscopy w/L [...] will be performed using a kit from [employer]. An ultrasound will be ordered six weeks post-procedure to ensure there is no scar tissue causing kidney blockage. A follow-up appointment is scheduled in six months, with a plain X-ray to be done prior to the visit. 07/28/24 L URS, laser, L stent07/27/24 Cr 1.3, GFR 50, Hgb 9.1, Hct 30.704/15 CT abd/pel w/o ([facility]): several bilateral renal collecting system [...] is like a cyst KACY DON MD [address] [facility], [place], [address], [facility] - [place] & [place] 08/03/2024 14:16:08 OBGyn Episode No OBEpisode recorded.
--- OUTSIDE RECORDS SUMMARY | 2024-11-01 08:12 | XMS_ITS | Encounter Summary ---
Author Organization [place] [address] Care Team Providers Care Candle Molder Hand Name Role Phone Mónica Adler APRN Primary Care Provider [phone] Reason for Visit * Reason Onset Date Comments Medication Refill 09/18/2024 Encounter Details Date Type Department Care Team (Late st Contact Info) Description 09/18/2024 Refill SEP Kiara [address] [place] [id number] Mónica Adler APRN [address] [facility] [place] [address] Medication Refill Social History Tobacco Use [...] needed. for wheezing 18 g 6 09/19/2024 5 semaglutide, weight loss, (WEGOVY) 2.4 mg/0.75 mL [...] documented as of this encounter Care Teams Candle Molder Hand Relationship Specialty Start Date End Date Mónica Adler APRN [address] [place], [place] [address] PCP - General Nurse Practitioner-Family 12/08/16 documented as of this encounter
--- NOTE | 2024-11-01 08:30 | US_ITS ---
FINAL REPORT CLINICAL HISTORY: .RT THYROID NODULE -- JOSH GU FINDINGS: Ultrasound guided thyroid biopsy. HISTORY: Thyroid mass. PROCEDURE: After informed consent was obtained and a time-out was performed, the patient was prepped and draped in usual sterile fashion over the anterior neck. Utilizing local anesthesia and sterile technique with a 25-gauge needle, access to the lesion was obtained. Four passes were made. The patient received no conscious sedation. The patient tolerated procedure well and left the department in good condition. IMPRESSION: Status post ultrasound guided biopsy of a thyroid nodule without immediate complication. Films reviewed , interpreted and dictated by Dr. Floyd. Transcribed by Josh Spears PA-C. Reviewed, Interpreted and Dictated by Priscilla Floyd MD Transcribed by RICCARDO Sung Authenticated and [facility]
== END 2024-11-01 23:59 | disposition home or self-care (01) ==
LOC: RAD 08:06
PROVIDERS: PCP Nurse Practitioner; Visit Provider Otolaryngology
DX: E04.1 Nontoxic single thyroid nodule (principal)
CPT/HCPCS: 10005; 88173; 88305

== ENCOUNTER 2024-11-03 14:02 | Outpatient (CLI) | payer MEDICARE, OTHER, SELFPAY ==
--- OUTSIDE RECORDS SUMMARY | 2024-11-03 14:05 | XMS_ITS | Encounter Summary ---
Author Organization [place] [address] Care Team Providers Care Skin Therapist Name Role Phone Mónica Adler APRN Primary Care Provider [phone] Reason for Visit * Reason Onset Date Comments Results 09/22/2024 Encounter Details Date Type Department Care Team (Late st Contact Info) Description 09/22/2024 Telephone SEP Kiara [address] [place] [address] Mónica Adler APRN [address] [facility] [place] [address] Results Social History Tobacco Use Types [...] is an ENT group that goes to [facility] if she would like to see [...] on filedocumented in this encounter Care Teams Skin Therapist Relationship Specialty Start Date End Date Mónica Adler [place] [address] [place] [address] PCP - General Nurse Practitioner-Family 12/08/16 documented as of this encounter
--- NOTE | 2024-11-03 14:06 | US_ITS ---
FINAL REPORT TECHNIQUE: Ultrasound images of the kidneys and bladder were obtained. CLINICAL HISTORY: LEFT URETERAL STONE FINDINGS: The right kidney measures 11.1 cm in length. There is no hydronephrosis. There is a benign cyst in the upper pole right kidney measuring up to 18 mm. No solid mass of either kidney is seen. The left kidney measures 10.6 cm in length. There is no hydronephrosis. Lower pole left renal calcification is suspicious for stone. This measures up to 6 mm. IMPRESSION: Probable left nephrolithiasis. No hydronephrosis to indicate active obstruction. Reviewed, Interpreted and Dictated by Priscilla Floyd MD Transcribed by Karli Meneses Authenticated and [facility]
--- OUTSIDE RECORDS SUMMARY | 2024-11-03 14:06 | XMS_ITS | Data Portability ---
Author Organization [place] - [facility] - [place] & RAMILA Pang ADMIN Address [address] [place] [phone] Care Team Providers Care District Director Name Role Phone ROSA RITTER Primary Care [...] [email or web address] [facility], [address], [address], [place], [address], 08/10/2024 13:41:56 uric acid, serum or plasma 2024 025 [email or web address] [facility], [address], [address], [place], [address], 08/10/2024 13:41:57 phosphoru s, serum or plasma 2024 025 [email or web address] [facility], [address], [address], [place], [address], 08/03/2024 11:48:27 CBC w/ auto diff 2023 024 [email or web address] [facility], [address], [address], [place], [address], 10/01/2023 14:03:55 iron + TIBC + ferritin, serum 2023 024 [email or web address] [facility], [address], [address], [place], [address], 10/01/2023 14:03:55 copper, serum or plasma 2023 024 [facility], [address], [address], [place], [address], 10/01/2023 14:03:57 CMP, serum or plasma 2023 024 [email or web address] [facility], [address], [address], [place], [address], 10/01/2023 14:03:55 HbA1c (hemoglob in A1c), blood 2023 024 [email or web address] [facility], [address], [address], [place], [address], 10/01/2023 14:03:55 lipid panel, serum 2023 024 [email or web address] [facility], [address], [address], [place], [address], 10/01/2023 14:03:56 vitamin D, 25-hydrox y, total, serum 2023 024 [email or web address] [facility], [address], [address], [place], [address], 10/01/2023 14:03:56 vitamin A (retinol) , serum 2023 024 [email or web address] [facility], [address], [address], [place], [address], 10/01/2023 14:03:56 vitamin E, serum 2023 024 [email or web address] [facility], [address], [address], [place], [address], 10/01/2023 14:03:56 PTH (parathyr oid hormone), intact, serum or plasma 2023 024 [email or web address] [facility], [address], [address], [place], [address], 10/01/2023 14:03:56 TSH + free T4, serum 2023 024 [email or web address] [facility], [address], [address], [place], [address], 10/01/2023 14:03:56 folate, serum 2023 024 [email or web address] [facility], [address], [address], [place], [address], 10/01/2023 14:03:56 methylmal hang, QN, serum or plasma 2023 024 [facility], [address], [address], [place], [address], 10/01/2023 14:03:57 thiamine, QN, blood 2023 024 [email or web address] [facility], [address], [address], [place], [address], 10/01/2023 14:03:57 Referral None recorded. Procedures None recorded. Surgeries esophagog astroduod enoscopy (SURG) 2023 024 [email or web address] Taty Richards MD, [address], [address], [place], [address], 01/04/2024 13:17:44 Imaging US, renal [email or web address] [place] [address] Scheduling, [address], [place], [address], 10/26/2024 10:54:28 XR, kidney + ureter + bladder 2024 025 [email or web address] [facility] (Centralized Scheduling), [address], [place], [address], 08/03/2024 10:23:14 XR, chest, 2 view 2023 024 [email or web address] [facility] (Centralized Scheduling), [address], [place], [address], 10/01/2023 14:03:28 electroca rdiogram, routine ECG, 12 leads min 2023 024 [email or web address] Not available 10/01/2023 13:49:45 Medication Orders None recorded. Patient Targets Encounter Date Encounter Id Patient Goals Patient Target Last Modified By Organization Details Last Modified Time 09/07/2023 [id number] 1. Start keeping food records 2. Decrease [...] calcium 8.6 mg/dL 8.5-10 .5 Not Available [facility] ([facility]) [address] , [place], [address], 08/03/2024 11:48:26 08/04/19 25 08/03/2024 PHOSP HOROU S phosphorus 3.2 mg/dL 2.5-4. 9 Not Available [facility] ([facility]) [address] , [place], [address], 08/03/2024 11:48:27 08/04/19 25 08/03/2024 URIC ACID uric acid 4.2 mg/dL 2.6-6. 0 Not Available [facility] ([facility]) [address] , [place], [address], 08/03/2024 12:13:16 08/04/19 25 08/04/2024 PTH, INTAC T PTH, intact 59 pg/mL 15-65 Perfo rmed at: - [facility] [place] [address] Lab Direc tor: Cristian sloan PhD, Phone : [phone] Not Available [facility] ([facility]) [address], [place], [address], 08/04/2024 11:13:13 07/27/19 25 07/25/2024 CT, abdom en + pelvi s, w/o contr ast No observ ation record ed. [facility] (Med Record) [address], [place], [address], 07/27/2024 09:03:28 Result Notes None recorded. Problems Name Problem SNOMED Code Status Onset Date Resolution Date Notes Provider Name and Address Organization Details Recorded Time Essential hypertension 18290458 Active 2023 RICCARDO Lozano [address], [place], [address] , [place] - [facility] - [place] & [place] 4 09:01:10 Dyslipidemia 845448322 Active 2023 RICCARDO Lozano [address], [place], [address] , [place] - [facility] [place] & [place] 4 09:03:02 Iron deficiency 31875364 Active 2023 RICCARDO Lozano [address], [place], [address] , [place] - [facility] [place] & [place] 4 09:03:05 Hyperparathyr oidism 00677981 Active 2023 RICCARDO Lozano [address], [place], [address] , [place] - [facility] [place] & [place] 4 09:03:12 Obesity 623528211 Active 2023 RICCARDO Lozano [address], [place], [address] , [place] - [facility] [place] & [place] 4 09:03:25 Disorder of function of stomach 461687351 Active 2023 RICCARDO Lozano [address], [place], [address] , [place] - [facility] [place] & [place] 4 14:08:55 Obstructive sleep apnea syndrome 74550515 Active [address], [place], [address] , [facility] - [facility] & [place] 4 14:09:55 Ureteric stone 51275746 Active 2024 KACY DON MD [address], [place], [address] , [facility] - [facility] & [place] 10:22:34 Problem Notes None recorded. Procedures Surgical History Date Name Laterality Status Provider Name and Address Organization Details Recorded Time Cystoscopy-Fem krissy completed KACY DON MD [address], [place], [address], [facility] - [facility] & [place] 08/03/2024 10:23:31 biopsy of breast completed Giovanna Birmingham [facility] & [place] 09/07/2023 11:16:50 extraction of wisdom tooth completed Giovanna VIDES [facility] & [place] 09/07/2023 11:16:57 hernia repair completed RICCARDO Bhandari [address], [place], [address], [place] - [facility] & [place] 09/07/2023 14:09:37 Imaging Results None recorded. Procedure Notes Documentation Provider Name and Address Organization Details Recorded Time Consult History and Physical [facility] Name María Mahajan Date of Service 0748 [id number] (F) Attending MARSHA Balderas Admitted [id number] Discharged Primary NO DEFINED PRIMARY C - Chief Complaint Left flank pain History of Present Illness Patient is a 49-year-old female with no prior stone history, received as a transfer from [facility] for ongoing left flank pain. She [...] (ZOLOFT) 200 MG PO DAILY NOZIN NASAL SOIL SURVEYOR POPSWAB 1 EA NASAL BID APPLY TO EACH NOSTRIL metoprolol succin (TOPROL XL) 100 MG PO DAILY levothyroxine (SYNTHROID) 75 MCG PO DAILY sodium chloride 0.9% FLUSH 10 ML IV PUSH PRN for FLUSH IV LINE promethazine (PHENERGAN) 25 MG/ML 12.5 MG IV PUSH Q6HPRN for NAUSEA VOMITING 1 of 3 Consult History and Physical [facility] Name María Mahajan Date of Service 0748 [id number] (F) Attending MARSHA Balderas Admitted [id number] Discharged Primary NO DEFINED PRIMARY C - [...] 2 of 3 Consult History and Physical [facility] Name María Mahajan Date of Service 0748 [id number] (F) Attending MARSHA Balderas Admitted [id number] Discharged Primary NO DEFINED PRIMARY C - [...] plan. Electronically signed by ARIAN MCKEE on 0755 3 of 3 CC'ed Logic: Ordering Provider: ARIAN Arce, RADHA, S [address], [place], [address], [facility] & [place] 07/27/2024 11:20:25 Medical Equipment None Reported. Allergies [...] Updated DateTime 5 172.72 cm 44.7 kg/m2 803358. 16 g 97 % 97 % 67 /min 132/74 mm[Hg] Deana Mabry [place] - [facility] & [place] 5 10:06:27 Date Recorded Body height Body mass index (BMI) Body weight Body temperature Heart rate Systolic And Diastolic Provider Name and Address Organization Details Last Updated DateTime 4 172.72 cm 49.5 kg/m2 142936. 32 g 98.3 [degF] 60 /min 166/85 mm[Hg] Kasie Caballero [place] - [facility] & [place] 4 13:48:51 Social History None recorded. Functional [...] N Heart Disease N Pulmonary Embolism N Deep Vein Thrombosis N Headaches Y Hypertension Y Kidney Disease N Gynecological HistoryNo gynecological history recorded. Obstetrics History GPAL:G 0 P 0 0 0 0 Past Encounters Encounter ID Performer Location Encounter Start Date Encounter Closed Date Diagnosis/Indication Diagnosis SNOMED-CT Code Diagnosis ICD10 Code Diagnosis Note [id number] RICCARDO Lozano [facility] [address] [facility] [address] [place] [address] 09/07/2023 11:31:58 09/07/2023 14:21:54 Essential hypertension 07324782 I10 Dyslipidemia 405180299 E 78.5 Iron deficiency 07066119 E61.1 Hyperparathyroidism 6699 9008 E21.3 Obesity 154122913 E66.9 Weight loss surgery options discussed at [...] testing has been completed Pre-surger y evaluation 218881906 Z01.818 Disorder o f function of stomach 476258194 K31.89 Obstructiv e sleep apnea syndrome 91471019 G47.[id number], [place] [facility] [address] [facility] [address] [place] [address] 09/07/2023 15:04:06 09/08/2023 10:44:50 Essential hypertension 69770519 I10 Obstructiv e sleep apnea syndrome 64875669 G47.33 Morbid obesity 835643298 E66.01 BMI 49.[id number]N, [place] [facility] [address] [facility] [address] [place] [address] 10/08/2023 11:42:36 10/08/2023 13:00:11 Essential hypertension 09869861 I10 Obstructiv e sleep apnea syndrome 00648473 G47.33 Morbid obesity 607027836 E66.01 Unintentio nal weight gain 1461794187 69620 R63.5 [id number] KACY DON MD [facility] [place] [address] 08/03/2024 09:38:35 08/03/2024 10:29:15 Ureteric stone 36770113 N20.1 Health Concerns Section Related Observation LastModified by Organization Detai ls LastModified Time None Recorded Concern Status LastModified by Organization Details LastModified Time None Recorded Advance Directives Directive None Recorded Payers Insurance Date Sequence Insurance Name Policy Number Policy Crocker Covered Member ID Crocker Member ID Guarantor Name 08/03/2024 1 [facility] (MEDICARE REPLACEMENT/AD VANTAGE - HMO) [id number] María Brunner Heri [id number] María Mahajan 08/03/2024 2 [facility] (MEDICAID HMO) María Heri [id number] María Heri 08/03/2024 1 [place] SANJAY LOZANO [facility] (MEDICARE REPLACEMENT REGIONAL O) [id number] María Heri [id number] María Mahajan Notes Date Note Type Note Provider Name and Address Organization Details Recorded Time 04/18/202 5 text/plai n Operative/Procedure Note [facility] Name María Mahajan Date of Service 0841 [id number] (F) Attending MARSHA Balderas Admitted [id number] Discharged Primary STONE LEE W - Pre-Procedure Diagnosis Kidney stone Post- Procedure Diagnosis Kidney stone Procedure / Surgery None 1. Cystoscopy with left ureteral catheterization (CPT 62958) 2. Left retrograde pyelogram (CPT 23575) 3. Left ureteroscopy with laser lithotripsy and stent placement (CPT 41847) 4. Left ureteroscopy with basket stone extraction (CPT 45020) 5. Fluoroscopy time less than 1 hour with intraoperative interpretation of imaging (CPT 10617) Anesthesia Type General anesthesia Estimated Blood Loss [...] orifice. This was catheterized with a 5 Tajik open-ended [place] catheter (CPT 30434). We then injected half-strength contrast in a retrograde fashion to perform left retrograde pyelogram. (CPT 91686). Contrast filled the entire collecting system with obvious filling defect corresponding to the 8 mm stone in the left UPJ. At this time, we then advanced 2 sensor tip guidewires in a retrograde fashion under fluoroscopic guidance (CPT 98034). A 12/14 Tajik ureteral access sheath was then advanced to the proximal left ureter under fluoroscopic guidance. We then introduced the flexible ureteroscope and advanced this into the ureter until we reached the stone. Using a 200 micron fiber we performed laser lithotripsy (CPT 46922). Several stone fragments were pushed up into the renal pelvis into an upper pole calyx. Once the stone was broken into numerous smaller fragments, we withdrew the ureteroscope in the laser fiber. We then reinserted the flexible ureteroscope along with the ZeroTip Nitinol basket and subsequently removed all significant fragments which were then passed off the field and sent for analysis (CPT 10300). Once all fragments were removed, we slowly withdrew the ureteroscope down the full length of the left ureter with no signs of ureteral injury or additional stone fragments. We then reinserted the rigid cystoscope and advanced a 6 Tajik by 24 cm double-J ureteral stent over our remaining guidewire under fluoroscopic guidance. We slowly withdrew the wire and visualized the proximal coil in the left renal pelvis under fluoro with the distal coil directly visualized in the bladder lumen. The bladder was drained through the cystoscope sheath and viscous lidocaine 1 of 2 Operative/Procedure Note [facility] Name María Mahajan Date of Service 0841 [id number] (F) Attending MARSHA Balderas Admitted [id number] Discharged Primary STONE LEE W - 2% gel was instilled in urethra. The procedure was terminated, the patient was awoken and transferred to the PACU in stable condition. Specimens Left ureteral stone fragments Tubes/Drains None Implants Left ureteral stent Disposition of Patient Stable to PACU Electronically signed by ARIAN MCKEE on 0846 2 of 2 CC'ed Logic: Ordering Provider: ARIAN Arce NP, S [address] [facility], [place], [address], [facility] - [place] & [place] 07/31/2024 08:19:12 4 text/html ROS as noted in the HPI Patient presents today for the initial evaluation [...] physical hunger, makes me happy. RICCARDO Lozano [address], [place], [address], [facility] & [place] 09/07/2023 14:48:49 4 text/html Intake Template RDN [...] skipsL: Eats out, chicken sand, burger, pizzaD: [place], chicken and dumplins, spaghettiSnacks: chips Eating out: [...] monitor PRN. MARÍA SHELL RD, LD [address] [facility], [place], [address], [facility] 09/07/2023 16:35:42 4 text/html RDN met w/ [...] with walking. EWELINA MON RDN, LD [address] [place], [address], [facility] & [place] 10/08/2023 13:58:45 5 text/html ROS as noted in the HPI 08/03/24 CC: [id number] present as new patient for cystoscopy w/L [...] will be performed using a kit from [employer]. An ultrasound will be ordered six weeks post-procedure to ensure there is no scar tissue causing kidney blockage. A follow-up appointment is scheduled in six months, with a plain X-ray to be done prior to the visit. 07/28/24 L URS, laser, L stent07/27/24 Cr 1.3, GFR 50, Hgb 9.1, Hct 30.704 CT abd/pel w/o ([facility]): several bilateral renal collecting system [...] is like a cyst KACY DON MD [address], [place], [address], [facility] - [place] & [place] 08/03/2024 14:16:08 OBGyn Episode No OBEpisode recorded.
--- OUTSIDE RECORDS SUMMARY | 2024-11-03 14:06 | XMS_ITS | Encounter Summary ---
Author Organization [place] [address] Care Team Providers Care General Manager Food Name Role Phone Mónica Adler APRN Primary Care Provider [phone] Encounter Details Date Type Department Care Team (Late st Contact Info) Description 10/27/2024 Orders Only SE[facility] Kiara [address] [place] [address] Chandrika Zimmerman CCMA ISAAC (obstructive sleep [...] Hypoxemia documented in this encounter Care Teams General Manager Food Relationship Specialty Start Date End Date Mónica Adler APRN [address] [place], [place] [address] PCP - General Nurse Practitioner-Family 12/08/16 documented as of this encounter
--- OUTSIDE RECORDS SUMMARY | 2024-11-03 14:06 | XMS_ITS | Encounter Summary ---
Author Organization [place] [address] Care Team Providers Care Outside Plant Technician Name Role Phone Mónica Adler APRN Primary Care Provider [phone] Reason for Visit * Reason Onset Date Comments Medication Refill 10/30/2024 Encounter Details Date Type Department Care Team (Late st Contact Info) Description 10/30/2024 Refill [facility] Kiara [address] [place] [address] Mónica Adler APRN [address] [facility] [place] [address] Medication Refill Social [...] documented as of this encounter Care Teams Outside Plant Technician Relationship Specialty Start Date End Date Mónica Adler APRN [address] [place] [address] PCP - General Nurse Practitioner-Family 12/08/16 documented as of this encounter
--- OUTSIDE RECORDS SUMMARY | 2024-11-03 14:06 | XMS_ITS | Encounter Summary ---
Author Organization [place] [address] Care Team Providers Care Outpatient Case Manager Name Role Phone Mónica Adler TOOL MAKER BENCH Primary Care Provider [phone] Reason for Visit * Reason Onset Date Comments Medication Refill 09/18/2024 Encounter Details Date Type Department Care Team (Late st Contact Info) Description 09/18/2024 Refill [facility] Kiara [address] [place] [address] Mariusz Junior MD [address] [place] [address] [place] [address] Medication Refill Social History Tobacco Use Types [...] documented as of this encounter Care Teams Outpatient Case Manager Relationship Specialty Start Date End Date Mónica Adler APRN [address] [place] [address] PCP - General Nurse Practitioner-Family 12/08/16 documented as of this encounter
--- OUTSIDE RECORDS SUMMARY | 2024-11-03 14:06 | XMS_ITS | Encounter Summary ---
Author Organization [place] [address] Care Team Providers Care Dietary Worker Name Role Phone Mónica Adler APRN Primary Care Provider [phone] Reason for Visit * Reason Comments Medication Refill Encounter Details Date Type Department Care Team (Late st Contact Info) Description 10/27/2024 Refill [facility] Kiara [address] [place] [address] Mónica Adler APRN [address] [place] [address] Medication Refill Social History Tobacco Use Types [...] and sent to requesting pharmacy. Routed to [facility] if an appointment is needed. documented in [...] documented as of this encounter Care Teams Dietary Worker Relationship Specialty Start Date End Date Mónica Adler APRN [address] [place], [place] [id number] PCP - General Nurse Practitioner-Family 12/08/16 documented as of this encounter
--- OUTSIDE RECORDS SUMMARY | 2024-11-03 14:06 | XMS_ITS | Clinical Summary ---
Author Organization [facility] Address [address] [place], [place] [address] Phone Care Team Providers Care Supervisor Screen Making Name Role Phone Mónica Adler FILI Primary Care Provider [phone] Allergies No known active allergies Medications calcium [...] Overview (10/22/2023): Followed by spine clinic at [facility] Assessment & Plan (10/22/2023 4:49 PM EDT): [...] AM EST): Try to get results from [facility] - states she had imaging in the [...] heart failure 08/18/2023 06/07/2024 Overview (08/18/2023): Saw [facility]. Per pt she has normal echo, [...] (10/22/2023 4:48 PM EDT): Being followed by [facility]. I believe she would be a [...] Department Care Team Description 10/30/2024 Refill SEP [address] [place] [address] Mónica Adler APRN Medication Refill 10/27/2024 Refill SEP [address] [place] [address] Mónica Adler ASSEMBLER FINGER BUFFS Medication Refill 10/27/2024 Orders Only [address] [place] [address] Chandrika Zimmerman CCMA ISAAC (obstructive sleep apnea); Nocturnal hypoxia 10/10/2024 Refill SEP [address] [place] [address] Mónica Adler APRN Medication Refill 10/10/[address] [place] [address] Mariusz Junior MD Medication Refill 10/09/[address] [place] [address] Mónica Adler APRN Referral ([facility] called requesting add'l info on patient in order to schedule there - please advise) 09/22/[address] [place] [address] Mónica Adler APRN Results 09/18/2024 Refill SEP [address] [place] [address] Mónica Adler APRN Medication Refill 09/18/2024 Refill SEP [address] [place] [address] Mariusz Junior MD Medication Refill 09/08/[address] [place] [address] Mónica Adler APRN Medication Refill 08/16/[address] [place] [address] Mónica Adler APRN Orders (venofer) 08/14/[address] [place] [address] Mónica Adler, FILI Other; Follow Up ([facility] called to f/u on PA status- they're asking to have this faxed to them MIN to be able to get pt scheduled. Please call the NEW # above to advise status .) 08/07/[address] [place] [address] Mónica Adler, ASSEMBLER FINGER BUFFS Medication Refill from Last 3 Months Immunizations [...] Attack Father Tom greenfield age 67 - [place] Vision Loss Father Tom greenfield No Known [...] Screening for malignant neoplasm of the rectum WOOD TILE INSTALLATION HELPER CYTOLOGY REQUEST (PAP ONLY) Routine 08/07/2021 1:45 [...] (Haider Kelly al, N Engl J Med 2014;370(14):5187-5671) The normal value (reference range) for this assay is negative. COLOGUARD RE-SCREENING RECOMMENDATION: Periodic colorectal cancer screening is an important part of preventive healthcare for asymptomatic individuals at average risk for colorectal cancer. Following a negative Cologuard result, the [place] Cancer Society and U.S. Multi-Society Task Force screening guidelines recommend a Cologuard re-screening interval of 3 years. References: [place] [employer] Guideline for Colorectal Cancer Screening: https://www.cancer.org/cancer/okhdt-ifaobe-brhhea/jpfpfjukl-nzsteifhe-fdobsnm/ac s-rec ommendations.html.; Calin DK, Mary EMERSON, Marco Antonio HallK, Colorectal Cancer Screening: Recommendations for Physicians and Patients from the U.S. Multi-Society Task Force on Colorectal Cancer Screening , Am J Gastroenterology 2017; 112:6386-5049. TEST DESCRIPTION: Composite algorithmic analysis of stool [...] TMerline et al, N Engl J Med 2014;370(14):9199-7028.) Cologuard may produce a false negative or false positive result (no colorectal cancer or precancerous polyp present at colonoscopy follow up). A negative Cologuard test result does not guarantee the absence of CRC or advanced adenoma (pre-cancer). The current Cologuard screening interval is every 3 years. ([place] Cancer Society and U.S. Multi-Society Task Force). Cologuard performance data in a 10,000 patient pivotal study using colonoscopy as the reference method can be accessed at the following location: www.Gigalo/results. Additional description of the Cologuard test process, warnings and precautions can be found at www.MOOVIArd.WorldPassKey. Stool 09/16/2022 10:3 0 PM EDT 09/18/2022 8:25 PM EDT Mónica Adler APRN [employer] - ORDERABLES Final Result Performing Organization Address City/State/[facility] Co de Phone Number [employer], [address] [employer] [address] [place] [address] [place] [address] * WOOD TILE INSTALLATION HELPER CYTOLOGY REQUEST (PAP ONLY) (08/07/2021 1:45 PM EDT) CASE REPORT Gynecologic Cytology Report Case: [id number] Authorizing Provider: Mónica Adler APRN Collected: 08/07/2021 1345 Ordering Location: [facility] Received: 08/07/2021 1345 First Screen: Sandra Calhoun CT Rescreen: Yohana Richey CT Specimen: LIQUID-BASED PAP - CERVICAL/ENDOCERV ICAL, Cervix, Endocervical 08/12/2021 3:28 PM EDT [facility] PAP FINAL DIAGNOSIS Negative for intraepithelial lesion or malignancy 08/12/2021 3:28 PM EDT [facility] at 1528 EDT MICROSCOPIC DESCRIPTION Microscopic examination is performed and the findings corroborate the diagnosis. 08/12/2021 3:28 PM EDT [facility] PAP SMEAR ADEQUACY Satisfactory for evaluation 08/12/2021 3:28 PM EDT [facility] SPECIMEN LIMITATIONS Obscured by inflammation 08/12/2021 3:28 PM EDT [facility] PAP ORGANISMS NOTED Abundant bacteria present. 08/12/2021 3:28 PM EDT [facility] ENDOCERVICAL T-ZONE Transformation zone absent. 08/12/2021 3:28 PM EDT [facility] EMBEDDED IMAGES 3:28 PM EDT [facility] PAP DISCLAIMER This case was not successfully imaged due to technical reasons and was manually rescreened. The Pap Smear is a screening test that aids in the detection of cervical cancer and cancer precursors. Both false positive and false negative results can occur. The test should be used at regular intervals, and positive results should be confirmed before definitive therapy. Processed using the WakingAppPrep Abseiling Instructor Automated cytology screening device ([employer]). 08/12/2021 3:28 PM EDT [facility] Thin Prep ENDOCERVICAL STRUCTURE / Unknown 08/07/2021 1:45 PM EDT 08/07/2021 1:45 PM EDT Mónica Adler ASSEMBLER FINGER BUFFS CYTOLOGY ORDERABLES Final R esult Performing Organization Address City/State/[facility] Co de Phone Number [facility] [address] [phone] from Last 3 Months or Most Recently Relevant to Health Maintenance Insurance [facility] [address] [facility] DUAL COMPLETE HMO [place] [facility] [place] [address] [facility] [place] [address] Care Teams Supervisor Screen Making Relationship Specialty Start Date End Date Mónica Adler APRN [address] [place] [address] PCP - General Nurse Practitioner-Family 12/08/16
--- OUTSIDE RECORDS SUMMARY | 2024-11-03 14:06 | XMS_ITS | Encounter Summary ---
Author Organization [place] [address] Care Team Providers Care Jumpbasting Facing Baster Name Role Phone Mónica Adler APRN Primary Care Provider [phone] Reason for Visit * Reason Onset Date Comments Medication Refill 09/08/2024 Encounter Details Date Type Department Care Team (Late st Contact Info) Description 09/08/2024 Refill SEP [facility] [address] [place] [phone] Mónica Adler APRN [address] [place] [address] Medication Refill Social History Tobacco Use [...] documented as of this encounter Care Teams Jumpbasting Facing Baster Relationship Specialty Start Date End Date Mónica Adler APRN [address] [place] [address] PCP - General Nurse Practitioner-Family 12/08/16 documented as of this encounter
--- OUTSIDE RECORDS SUMMARY | 2024-11-03 14:06 | XMS_ITS | Encounter Summary ---
Author Organization [place] [address] Care Team Providers Care Utility Bill Collector Name Role Phone Mónica Adler APRN Primary Care Provider [phone] Reason for Visit * Reason Onset Date Comments Medication Refill 09/18/2024 Encounter Details Date Type Department Care Team (Late st Contact Info) Description 09/18/2024 Refill SEP [facility] [address] [place] [phone] Mónica Adler APRN [address] [place] [address] Medication Refill Social History Tobacco Use [...] documented as of this encounter Care Teams Utility Bill Collector Relationship Specialty Start Date End Date Mónica Adler APRN [address] [place], [place] [address] PCP - General Nurse Practitioner-Family 12/08/16 documented as of this encounter
--- OUTSIDE RECORDS SUMMARY | 2024-11-03 14:07 | XMS_ITS | Encounter Summary ---
Author Organization [place] [address] Care Team Providers Care Attendance Officer Name Role Phone Mónica Adler APRN Primary Care Provider [phone] Reason for Visit * Reason Onset Date Comments Orders 08/16/2024 venofer Encounter Details Date Type Department Care Team (Late st Contact Info) Description 08/16/2024 Telephone SEP [facility] [address] [place] [address] Mónica Adler APRN [address] [facility] [place] [address] Orders (venofer) Social History Tobacco Use [...] Request Who is requesting the Order(s): Other [facility] What Orders are being requested: Other need the order for venofer faxed. they have received the referral but not the order Reason Orders are Needed (Diagnosis): iron deficiancy If non-[facility], where should the order be faxed: [phone] Return Method of Communication: Phone Call Additional [...] on filedocumented in this encounter Care Teams Attendance Officer Relationship Specialty Start Date End Date Mónica Adler APRN [address] [place] [address] PCP - General Nurse Practitioner-Family 12/08/16 documented as of this encounter
--- OUTSIDE RECORDS SUMMARY | 2024-11-03 14:07 | XMS_ITS | Encounter Summary ---
Author Organization [place] [address] Care Team Providers Care Pension Administrator Name Role Phone Mónica Adler APRN Primary Care Provider [phone] Reason for Visit * Reason Onset Date Comments Medication Refill 10/10/2024 Encounter Details Date Type Department Care Team (Late st Contact Info) Description 10/10/2024 Refill SEP [facility] [address] [place] [phone] Mónica Adler APRN [address] [facility] [place] [address] Medication Refill [...] documented as of this encounter Care Teams Pension Administrator Relationship Specialty Start Date End Date Mónica Adler APRN [address] [place] [address] PCP - General Nurse Practitioner-Family 12/08/16 documented as of this encounter
--- OUTSIDE RECORDS SUMMARY | 2024-11-03 14:07 | XMS_ITS | Encounter Summary ---
Author Organization [place] [address] Care Team Providers Care Vocational Examiner Name Role Phone Mónica Adler APRN Primary Care Provider [phone] Reason for Visit * Reason Onset Date Comments Referral 10/09/2024 [facility] called requesting add'l info on patient in order to schedule there - please advise Encounter Details Date Type Department Care Team (Late Contact Info) Description 10/09/2024 Telephone SEP [facility] [place] [address] [place] [address] Mónica Adler APRN [address] [place] [address] Referral ([facility] called requesting add'l info [...] Request Who is requesting the referral: Other [facility] What type of referral: REF99 - AMB REFERRAL TO SLEEP STUDIES/MEDICINE none 1 1 [id number] (CPT??) - [place] OFFICE/OUTPATIENT NEW MODERATE MDM 45 MINUTES none What is the reason / diagnosis for this referral:R29.818 (ICD-10-CM) - 781.99 (ICD-9-CM) - Suspected sleep apnea Have you been seen by your PCP for this issue: Yes Does patient have a preference on a group/provider: Yes (if yes, complete preferred provider info below) Preferred Provider/Group Name: [facility] Preferred Provider/Group Preferred Provider/Group [...] on filedocumented in this encounter Care Teams Vocational Examiner Relationship Specialty Start Date End Date Mónica Adler APRN [address] [place] [address] PCP - General Nurse Practitioner-Family 12/08/16 documented as of this encounter
--- OUTSIDE RECORDS SUMMARY | 2024-11-03 14:07 | XMS_ITS | Encounter Summary ---
Author Organization [place] [address] Care Team Providers Care Housecleaner Name Role Phone Mónica Adler OFFICE ANALYST Primary Care Provider [phone] Reason for Visit * Reason Onset Date Comments Medication Refill 10/10/2024 Encounter Details Date Type Department Care Team (Late st Contact Info) Description 10/10/2024 Refill SEP [facility] [address] [place] [phone] Mariusz Junior MD [address] [place] [address] [place] [address] Medication Refill Social History Tobacco Use Types [...] documented as of this encounter Care Teams Housecleaner Relationship Specialty Start Date End Date Mónica Adler APRN [address] [place], [place] [address] PCP - General Nurse Practitioner-Family 12/08/16 documented as of this encounter
== END 2024-11-03 23:59 | disposition home or self-care (01) ==
LOC: RAD 14:03
PROVIDERS: PCP Nurse Practitioner; Visit Provider Urology
DX: N28.89 Other specified disorders of kidney and ureter; N28.1 Cyst of kidney, acquired
CPT/HCPCS: 76770

== ENCOUNTER 2024-12-02 21:12 | Observation (INO) | payer MEDICARE, OTHER, SELFPAY ==
--- OUTSIDE RECORDS SUMMARY | 2024-11-10 14:45 | XMS_ITS | Encounter Summary ---
Author Organization [place] [address] Care Team Providers Care Operator Bearer Systems Name Role Phone Nayely, Mónica FILI Primary Care Provider [phone] Reason for Visit * Reason Comments Follow-up Needs blood work Medication Refill Encounter Details Date Type Department Care Team (Late st Contact Info) Description 11/10/2024 2:45 PM EDT Office Visit [facility] [place] [address] [place] [phone] Mariusz Junior MD [address] [place] [address] Iron deficiency anemia secondary to inadequate [...] Date fluticasone propionate (FLONASE) 50 mcg/actuation Nasl [place], SuspensionIndicatio ns:Seasonal allergic rhinitis, unspecified trigger 1 [place] by Nasal route daily. 1 Each 2 [...] Orders: fluticasone propionate (FLONASE) 50 mcg/actuation Nasl [place], Suspension; 1 [place] by Nasal route daily. Chronic fatigue Orders: [...] - 65.00 pg/mL 11/10/2024 10:07 PM EDT [facility] Blood VENOUS BLOOD / Unknown Venipuncture / Unknown 11/10/2024 3:17 PM EDT 11/10/2024 3:17 PM EDT Narrative [facility] - 11/10/2024 10:07 PM EDT Intact PTH [...] Mónica Adler APRN CHEMISTRY ORDERABLES Final Result [facility] [address] , [place] [address] * VITAMIN B12/ FOLIC ACID (11/10/2024 3:17 PM EDT) Vitamin B12 323 232 - 1,245 pg/mL 11/10/2024 9:59 PM EDT [facility] Folate 12.90 >=4.80 ng/mL 11/10/2024 9:59 PM EDT [facility] Blood VENOUS BLOOD / Unknown Venipuncture / Unknown 11/10/2024 3:17 PM EDT 11/10/2024 3:17 PM EDT Narrative [facility] - 11/10/2024 9:59 PM EDT Ingestion of inez doses of biotin (>5 mg/day) taken within 8 hours of drawing blood sample can interfere with this immunoassay test. Mariusz Junior MD CHEMISTRY ORDERABLES Final Res ult Performing Organization Address [facility] de Phone Number [facility] [address] , [place] [address] * TSH REFLEX TO FT4 (11/10/2024 3:17 PM EDT) TSH Reflex 1.040 0.270 - 4.200 mcIU/mL 11/10/2024 10:26 PM EDT [facility], [facility] Blood VENOUS BLOOD / Unknown Venipuncture / Unknown 11/10/2024 3:17 PM EDT 11/10/2024 3:17 PM EDT Narrative [facility], [facility] - 11/10/2024 10:26 PM EDT Ingestion of inez doses of biotin (>5 mg/day) taken within 8 hours of drawing blood sample can interfere with this immunoassay test. Mariusz Junior MD CHEMISTRY ORDERABLES Final Res ult Performing Organization Address [facility] Phone Number [facility] [address] , [place] [address] * BASIC METABOLIC PANEL (11/10/2024 3:17 PM EDT) Sodium 137 136 - 145 mmol/L 11/10/2024 10:26 PM EDT [facility] Potassium 4.0 3.5 - 5.0 mmol/L 11/10/2024 10:26 PM EDT [facility] Chloride 100 98 - 107 mmol/L 11/10/2024 10:26 PM EDT [facility], [facility] Total CO2 24 22 - 29 mmol/L 11/10/2024 10:26 PM EDT [facility] Anion Gap 13 7 - 16 mmol/L 11/10/2024 10:26 PM EDT [facility] Calcium 9.3 8.6 - 10.4 mg/dL 11/10/2024 10:26 PM EDT [facility] Glucose Lvl 90 70 - 99 mg/dL 11/10/2024 10:26 PM EDT [facility] BUN 15 6 - 20 mg/dL 11/10/2024 10:26 PM EDT [facility] Creatinine 0.72 0.51 - 1.30 mg/dL 11/10/2024 10:26 PM EDT [facility] eGFR (CKD-EPIcr 2020) 102 >=60 mL/min/1.7 3 m2 11/10/2024 10:26 PM EDT [facility] Comment:Estimated GFR was ca lculated using the CKD-EPIcr (2020) equation refit without race. The equation is recommended by the National Kidney Foundation - [place] [employer] of Nephrology Task Force. Blood VENOUS BLOOD / Unknown Venipuncture / Unknown 11/10/2024 3:17 PM EDT 11/10/2024 3:17 PM EDT Mariusz Junior MD CHEMISTRY ORDERABLES Final Res ult [facility] [address] , [place] [address] * HEMOGLOBIN A1C (11/10/2024 3:17 PM EDT) [facility] Signature Hgb A1C 5.5 4.2 - 5.6 % 11/10/2024 9:54 PM EDT [facility] Est. Avg Glucose 111 mg/dL 11/10/2024 9:54 PM EDT [facility] Blood VENOUS BLOOD / Unknown Venipuncture / Unknown 11/10/2024 3:17 PM EDT 11/10/2024 3:17 PM EDT Narrative [facility] - 11/10/2024 9:54 PM EDT REFERENCE [...] Res ult [facility] [address] [facility] , [address] [place], [place] [address] * (ABNORMAL) CBC WITH DIFF (11/10/2024 3:17 [...] PM EDT [facility], [facility] [place] Percent 4.9 % 11/10/2024 9:29 PM EDT [facility], [facility] Eos Percent 2.0 % 11/10/2024 9:29 PM EDT [facility], [facility] Baso Percent 0.5 % 11/10/2024 9:29 PM EDT [facility], [facility] Neut # 7.0(H) 1.6 - 6.1 x10(3)/[facility] 11/10/2024 9:29 PM EDT [facility], [facility] Comment:Neutrophils equals s egs plus bands IMMGRAN# 0.1 0.0 - 0.1 x10(3)/[facility] 11/10/2024 9:29 PM EDT [facility], [facility] Comment:Automated count of m etamyelocytes, myelocytes and promyelocytes. An absolute IG <0.1 is reported as 0.0. Lymph # 1.7 1.2 - 3.9 x10(3)/[facility] 11/10/2024 9:29 PM EDT [facility], [facility] [place] # 0.5 0.3 - 0.9 x10(3)/[facility] 11/10/2024 9:29 PM EDT [facility], [facility] Eos# 0.2 0.0 - 0.5 x10(3)/[facility] 11/10/2024 9:29 PM EDT [facility], [facility] Baso # 0.1 0.0 - 0.1 x10(3)/[facility] 11/10/2024 9:29 PM EDT [facility], [facility] Blood VENOUS BLOOD / Unknown Venipuncture / Unknown 11/10/2024 3:17 PM EDT 11/10/2024 3:17 PM EDT us Mariusz Junior MD HEMATOLOGY ORDERABLES Final Re sult [facility], [facility] [address] , [place] [address] * (ABNORMAL) IRON+TIBC (11/10/2024 3:17 PM EDT) Iron 47 30 - 160 mcg/dL 11/10/2024 10:26 PM EDT [facility], [facility] Transferrin 217 200 - 360 mg/dL 11/10/2024 10:26 PM EDT [facility], [facility] Transferrin Saturation 15(L) 20 - 50 % 11/10/2024 10:26 PM EDT [facility], [facility] TIBC 304 250 - 400 mcg/dL 11/10/2024 10:26 PM EDT [facility], [facility] Blood VENOUS BLOOD / Unknown Venipuncture / Unknown 11/10/2024 3:17 PM EDT 11/10/2024 3:17 PM EDT us Mariusz Junior MD CHEMISTRY ORDERABLES Final Res ult [facility], [facility] [address] , [place] [address] documented in this encounter Visit [...] documented as of this encounter Care Teams Operator Bearer Systems Relationship Specialty Start Date End Date Mónica Adler APRN [address] [place] [address] PCP - General Nurse Practitioner-Family 12/08/16 documented as of this encounter
--- NOTE | 2024-12-02 21:14 | HMH.EDGENADL ---
Discharge Plan Disposition Patient Disposition: Admitted Condition: Good Prescriptions Prescriptions: No Action levothyroxine 75 mcg tablet 75 mcg PO DAILY Patient Comments: TAKE 1 TABLET BY MOUTH DAILY diclofenac sodium 50 mg tablet,delayed release (DR/EC) 50 mg PO BID Patient Comments: TAKE 1 TABLET BY MOUTH TWICE DAILY WITH FOOD NEEDED FOR PAIN metoprolol succinate 100 mg tablet extended release 24 hr 100 mg PO DAILY Qty: 90 3RF rosuvastatin 5 mg tablet 5 mg PO DAILY Qty: 90 3RF Zepbound 2.5 mg/0.5 mL pen injector 2.5 mg SQ WEEKLY Qty: 2 0RF Rx Instructions: for 4 weeks albuterol sulfate 90 mcg/actuation HFA aerosol inhaler inhalation Patient Comments: INHALE 2 PUFFS INTO THE LUNGS EVERY 4 HOURS NEEDED FOR WHEEZING fluticasone propionate 50 mcg/actuation spray,suspension intranasal Patient Comments: SHAKE LIQUID AND USE 1 SPRAY IN EACH NOSTRIL DAILY levocetirizine 5 mg tablet 5 mg PO DAILY Qty: 30 3RF dapagliflozin propanediol [Farxiga] 5 mg tablet 5 mg PO DAILY Qty: 30 11RF alprazolam 0.5 MG tablet 0.5 mg PO BID tamsulosin [Flomax] 0.4 mg capsule 0.4 mg PO HS Qty: 14 0RF sertraline 100 MG tablet 150 mg PO DAILY celecoxib [Celebrex] 200 mg capsule 200 mg PO DAILY Qty: 14 0RF baclofen 5 mg tablet 5 mg PO TID Qty: 90 0RF Referrals Follow up/Referrals: Mikki Lopez DO [Staff Physician, ACCOUNT EXECUTIVE] - See instructions Provider,Referral, [Referring, Medical] - See instructions Clinical Impressions Clinical Impression: Abdominal pain, Acute cholecystitis Instructions Patient Instructions: DI for Acute Abdominal Pain Print Language Print Language: Eritrean Discharge ED Provider: Jannette Mera General Adult HPI General Chief complaint: Abdominal Pain Stated complaint: right side abdominal pain Time Seen by Provider: 12/02/24 21:13 History of Present Illness HPI narrative: Patient is a 49-year-old female with a past medical history of kidney stones, last being 6 mm that required surgical removal who presented to the emergency department with right sided flank pain as well as left-sided flank pain. Patient states that she has been having some pain for the last month but her pain got worse over the last couple days. Patient states that her pain is constant, not worse with anything in particular. Patient states the pain does not radiate into her right lower quadrant. Patient denies the pain is worse with eating movement or with breathing. Patient reports some nausea no vomiting. Patient denies any fevers. Patient denies any chest pain or shortness of breath. Patient denies any diarrhea. Patient states that she was recently seen by her primary care provider that reportedly she has liver sludege. Related Data Home Medications ?Medication ?Instructions ?Recorded ?Confirmed sertraline 100 mg tablet 150 mg PO DAILY Depression 03/26/18 10/23/24 alprazolam 0.5 mg tablet 0.5 mg PO BID Anxiety 09/14/19 11/20/24 diclofenac sodium 50 mg 50 mg PO BID 06/16/23 10/23/24 tablet,delayed release levothyroxine 75 mcg tablet 75 mcg PO DAILY 06/16/23 10/23/24 albuterol sulfate 90 mcg/actuation inhalation 11/20/24 11/20/24 aerosol inhaler fluticasone propionate 50 intranasal 11/20/24 11/20/24 mcg/actuation nasal spray,suspension Previous Rx's ?Medication ?Instructions ?Recorded baclofen 5 mg tablet 5 mg PO TID #90 tabs 07/06/24 celecoxib 200 mg capsule (Celebrex) 200 mg PO DAILY #14 caps 07/06/24 tamsulosin 0.4 mg capsule (Flomax) 0.4 mg PO HS #14 caps 07/25/24 dapagliflozin propanediol 5 mg 5 mg PO DAILY Diabetes #30 tabs 08/24/24 tablet (Farxiga) metoprolol succinate 100 mg 100 mg PO DAILY Hypertension #90 09/06/24 tablet,extended release 24 hr tabs rosuvastatin 5 mg tablet 5 mg PO DAILY #90 tabs 09/06/24 tirzepatide (weight loss) 2.5 2.5 mg (0.5 mL) SQ WEEKLY #2 mL 10/23/24 mg/0.5 mL subcutaneous pen injector (Zepbound) levocetirizine 5 mg tablet 5 mg PO DAILY #30 tabs 11/20/24 Allergies Allergy/AdvReac Type Severity Reaction Status Date / Time No Known Allergies Allergy Verified 11/20/24 11:06 [facility] Disclaimer: The information contained in this section may have been updated after the patient was seen, as this information can be updated by other users. Medical History (Updated 12/03/24 @ 00:36 by Jannette Mera DO) Multiple thyroid nodules CHF (congestive heart failure) Asthma HLD (hyperlipidemia) HTN (hypertension) Anxiety Hyperparathyroidism Elevated brain natriuretic peptide (BNP) level Anemia Surgical History (Updated 11/20/24 @ 11:22 by ONIEL Gonzales) Status post fine needle aspiration History of hernia repair Family History Other Family history of acute congestive heart failure Family history of diabetes mellitus type II Family history of hyperlipidemia Family history of hypertension Social History Smoking Status: Never smoker alcohol intake: never current occupational status: other Travel in the last 8 weeks?: None household members: other housing: house current occupational exposures/hazards: No Have you lived/traveled outside [place] in past 30 days?: No Contact w/someone who lives/traveled outside US past 30 days?: No Exposure to someone with infectious disease in past 14 days?: No Do you have a fever (greater than 100.4 F or 38 C)?: No Have you tested positive for COVID-19?: No Exposed to someone with COVID-19 in past 14 days?: No Do you have a sore throat?: No Do you have a cough?: No Do you have any weakness?: No Do you have any diarrhea?: No Are you experiencing any unusual bleeding?: No Do you have any muscle aches/pain?: No Do you have any abdominal pain?: No Are you experiencing loss of taste or smell?: No Other Medical History Have you received the Flu Vaccine for this season: No Have you received the Pneumonia Vaccine: No ROS Obtained: Yes All systems reviewed & no additional complaints except as documented and Yes Systems reviewed as appropriate & no additional complaints except as documented Physical Exam General General appearance: alert and in no apparent distress Head Head exam: atraumatic, normocephalic and normal inspection Eye Eye exam: Present normal appearance, PERRL and EOMI; Absent scleral icterus ENT ENT exam: Present normal exam and normal external ear exam Neck Neck exam: Present normal inspection and full ROM Chest Chest inspection: Present normal inspection and symmetric chest wall rise Respiratory Respiratory exam: Present normal lung sounds bilaterally; Absent respiratory distress or wheezes Cardiovascular Cardiovascular exam: Present regular rate, normal rhythm and normal heart sounds Abdominal Exam Abdominal exam: Present soft, distention and tenderness; Absent guarding or rebound Comment: epigastric and right CVA tenderness Extremities Exam Extremities exam: Present normal inspection and full ROM Back Exam Back exam: Present normal inspection and full ROM Neurological Exam Neurological exam: Present alert and oriented X3 Psychiatric Psychiatric exam: Present normal affect and normal mood Skin Skin exam: Present warm and dry Medical Decision Making Medical Records Medical records reviewed: Yes I reviewed the patient's medical records. Screening: Per USPSTF and CDC recommendations, given the prevalence of disease in our region, it is our hospital?s policy to screen for HIV and viral Hepatitis for all patients aged 18 and over and those with ongoing risk factors. Gary Inquiry Pt receiving controlled substance: No Vital Signs: 12/02/24 21:23 12/02/24 21:30 12/02/24 21:31 Temperature 98.0 F Temperature Source Oral Pulse Rate 71 70 Pulse Rate [Right Radial] 70 Respiratory Rate 18 Blood Pressure 141/84 H 137/78 Blood Pressure [Right Arm] 141/84 H Blood Pressure Mean [Right Arm] 103 Blood Pressure Position [Right Arm] Supine 02 Sat by Pulse Oximetry 98 98 96 12/02/24 22:01 Temperature Temperature Source Pulse Rate 71 Pulse Rate [Right Radial] Respiratory Rate Blood Pressure 121/71 Blood Pressure [Right Arm] Blood Pressure Mean [Right Arm] Blood Pressure Position [Right Arm] 02 Sat by Pulse Oximetry 95 Lab Data Lab results reviewed: Yes I reviewed the patient's lab results. Lab Results 12/02/24 21:20: Urine Color Yellow, Urine Appearance Clear, Urine pH 6.0, Ur Specific [place] 1.025, Urine Protein Negative, Urine Glucose (UA) 3+, Urine Ketones Trace, Urine Blood 2+ A, Urine Nitrate Negative, Urine Bilirubin Negative, Urine Urobilinogen 0.2, Ur Leukocyte Esterase Negative, Urine RBC 3-5, Urine WBC Occasional, Ur Squamous Epith Cells 5-10, Urine Bacteria 1+ 12/02/24 21:45: WBC 11.9 H, RBC 4.95, Hgb 12.3, Hct 39.1, MCV 79.0 L, MCH 24.8 L, MCHC 31.5 L, RDW 16.2, Plt Count 235, MPV 10.5 H, Neut % (Auto) 74.8, Lymph % (Auto) 17.2, [place] % (Auto) 5.6, Eos % (Auto) 1.8, Baso % (Auto) 0.3, Neut # (Auto) 8.9 H, Lymph # (Auto) 2.1, [place] # (Auto) 0.7, Eos # (Auto) 0.2, Baso # (Auto) 0.0, Sodium 139, Potassium 3.8, Chloride 105, Carbon Dioxide 28, Anion Gap 9.8, BUN 15, Creatinine 0.80, Estimated Creat Clear 162, Estimated GFR 76, Est GFR ( Amer) 92, Glucose 85, Calcium 8.7, Total Bilirubin 0.4, AST 32, ALT 20, Alkaline Phosphatase 82, Total Protein 7.2, Albumin 4.1, Globulin 3.1, Albumin/Globulin Ratio 1.3, Lipase 93, Serum HCG, Qual Negative 12/02/24 21:45 12/02/24 21:45 Orders (Tests/Meds): ED MEDICATIONS Generic Name Dose Route Start Last Admin Trade Name Freq PRN Reason Stop Dose Admin Piperacillin Sod/Tazobactam 100 mls @ 200 mls/hr 12/03/24 00:30 Sod 4.5 gm/ Sodium Chloride IV 12/13/24 00:29 Q6H ISABELLE Sodium Chloride 10 ml 12/02/24 22:28 12/02/24 22:30 Sodium Chloride 0.9% 10ml Syr (Rad Only) IV 01/01/25 22:27 10 ml NEEDED PRN Administration Maintain IV Site Discontinued Medications Generic Name Dose Route Start Last Admin Trade Name Freq PRN Reason Stop Dose Admin Iopamidol 75 ml 12/02/24 22:28 12/02/24 22:30 Iopamidol-370 (76%);100ml Bottle IV 12/02/24 22:29 75 ml ONCE ONE Administration Morphine Sulfate 4 mg 12/02/24 21:34 12/02/24 21:45 Morphine 4mg/Ml Syringe IV 12/02/24 21:35 4 mg ONCE ONE Administration Morphine Sulfate 4 mg 12/03/24 00:27 12/03/24 00:36 Morphine 4mg/Ml Syringe IV 12/03/24 00:28 4 mg ONCE ONE Administration Ondansetron HCl 4 mg 12/02/24 21:34 12/02/24 21:45 Ondansetron 4mg/2ml Vial IV 12/02/24 21:35 4 mg ONCE ONE Administration ORDERS Category Date Time Status CT abdomen pelvis w con Stat Cat Scan 12/02/24 21:34 Completed POCUS Point of Care (ER Only) Stat Exams 12/03/24 00:09 Ordered CBC w/Auto Diff [Complete Blood Count Auto Diff] Stat Lab 12/02/24 21:45 Completed CMP [Comprehensive Metabolic Panel] Stat Lab 12/02/24 21:45 Completed HCG Qualitative, Serum Stat Lab 12/02/24 21:45 Completed Lipase Stat Lab 12/02/24 21:45 Completed UA [Urinalysis and Microscopic] Stat Lab 12/02/24 21:20 Completed Blood Culture Stat Micro 12/03/24 00:35 Ordered Urine Culture Stat Micro 12/02/24 21:20 Received Medical Decision Narrative: Patient is an otherwise healthy 49-year-old female with a past medical history of kidney stones who presented to the emergency department with right flank and epigastric abdominal pain. On arrival, patient was hemodynamically stable with unremarkable vital signs, Differential includes but not limited to: Cholecystitis, cholelithiasis, nephrolithiasis, urinary tract infection, pyelonephritis, intra-abdominal abscess, amongst others. Patient's labs were reviewed and interpreted by myself: CBC showed mild leukocytosis of 11, CMP was unremarkable. test negative. Lipase normal. UA did have occasional white blood cells negative leuk's no nitrates contaminated with 5-10 white blood cells and 1+ bacteria. CT scan was reviewed and interpreted by myself and did show a left 3 cm ovarian cyst but otherwise no acute pathology. Patient did not have any left lower quadrant tenderness therefore low concern for ovarian torsion. Patient will need to follow-up for this. However on my reevaluation, patient reported worsening pain that had migrated to her right upper quadrant and into her right shoulder. Although her CT scan was negative for acute gallbladder pathology, bedside ultrasound was performed. Bedside ultrasound did show gallbladder sludge, thickened gallbladder wall as well as some pericholecystic fluid. Unfortunately, bedside ultrasound images were unable to be saved. Given patient's recurrent pain and concern for cholecystitis, patient was given IV fluids, IV Zosyn and additional dose of IV pain medications and the hospital medicine team was consulted and patient was ultimately admitted to their service for further evaluation workup. Critical Care Critical Care Time Critical Care Time: No
[2024-12-02 21:23] VITALS: BP 141/84; PULSE 71; O2SAT 98
--- OUTSIDE RECORDS SUMMARY | 2024-12-02 21:27 | XMS_ITS | Encounter Summary ---
Author Organization [place] [address] Care Team Providers Care Master Lay Out Specialist Name Role Phone Mónica Adler APRN Primary Care Provider [phone] Reason for Visit * Reason Onset Date Comments Medication Refill 11/09/2024 Encounter Details Date Type Department Care Team (Late st Contact Info) Description 11/09/2024 Refill [facility] [address] [place] [id number] Mónica Adler APRN [address] [place] [address] Medication Refill Social [...] Date Author No 08/18/2023 9:51 AM Kannan Gmienez CCMA documented in this encounter Ordered Prescriptions Prescription Sig Dispense Quantity Refills Last Filled Start Date End Date metoprolol succinate ER (TOPROL-XL) 100 mg Oral Tablet Sustained Release 24 hrIndications:Essen tial hypertension Take 1 Tablet by mouth daily. 90 Tablet 3 11/09/2024 documented in this encounter Plan of Treatment Not on file documented as of this encounter Goals Goal Patient Goal Type Associated Problems Recent Progress Patient-Stated? Author Blood Pressure < 140/90 Blood Pressure 128/74(2024 2:50 PM EDT) No Mohini Mendiola, RMA Maintain a healthy diet, exercise regularly and maintain an ideal body weight General No Mohini Mendiola, RMA documented as of this encounter Visit Diagnoses Diagnosis Essential hypertension Unspecified essential hypertension documented in this encounter Discontinued Medications Medication Sig Discontinue Reason Start Date End Da te metoprolol succinate ER (TOPROL-XL) 100 mg Oral Tablet Sustained Release 24 hrIndications:Essential hypertension TAKE 1 TABLET BY MOUTH EVERY DAY Reorder 10/25/2023 11/09/2024 documented as of this encounter Care Teams Master Lay Out Specialist Relationship Specialty Start Date End Date Mónica Adler [place] [address] [place] [address] PCP - General Nurse Practitioner-Family 12/08/16 documented as of this encounter
--- OUTSIDE RECORDS SUMMARY | 2024-12-02 21:27 | XMS_ITS | Encounter Summary ---
Author Organization [place] [address] Care Team Providers Care Inspector Hairspring Truing Name Role Phone Mónica Adler APRN Primary Care Provider [phone] Encounter Details Date Type Department Care Team (Late st Contact Info) Description 11/13/2024 Results Follow-Up [facility] [place] [facility] [address] [place] [address] Mariusz Junior MD [address] [address] IRON+TIBC, CBC WITH DIFF, HEMOGLOBIN A1C, Additional followed-up results: 3 Social History Tobacco Use Types Packs/Day Years [...] 08/18/2023 9:51 AM EDT Chandrika Zimmerman CCMA documented as of this encounter Mental Status * Because of a physical, mental or emotional condition, does this person have serious difficulty concentrating, remembering or making decisions? Answer Entry Date Author No 08/18/2023 9:51 AM EDKannan Deleon CCMA documented in this encounter Progress Notes * Mariusz Junior MD - 11/13/2024 8:18 AM EDT Her iron levels improved to normal range. Her anemia has also improved. She does not have to continue on IV iron but would recommend that she stay on a high iron diet. Kidney function electrolytes are normal. Thyroid level is normal. Folic acid was normal but B12 was borderline low. Would recommendtaking a daily multivitamin to help with this. Diabetes screen was negative/normal. Overall her blood work was good/improved documented in this encounter Plan of Treatment Not on file documented as of this encounter Goals Goal Patient Goal Type Associated Problems Recent Progress Patient-Stated? Author Blood Pressure < 140/90 Blood Pressure 128/74(2024 2:50 PM EDT) Mohini Jimenez RMA Maintain a healthy diet, exercise regularly and maintain an ideal body weight General Mohini Jimenez RMA documented as of this encounter Visit Diagnoses Not on filedocumented in this encounter Additional Health Concerns Assessment Noted Time PHQ-9 Depression Total Score: 11 025 2:50 PM EDT PHQ-2 Depression Total Score: 4 11/11/19 25 2:50 PM EDT documented as of this encounter Care Teams Inspector Hairspring Truing Relationship Specialty Start Date End Date Mónica Adler APRN [address] [place] [address] PCP - General Nurse Practitioner-Family 12/08/16 documented as of this encounter
--- OUTSIDE RECORDS SUMMARY | 2024-12-02 21:27 | XMS_ITS | Encounter Summary ---
Author Organization [place] [address] Care Team Providers Care Practicing Dermatologist Name Role Phone Mónica Adler APRN Primary Care Provider [phone] Reason for Visit * Reason Comments Medication Refill Encounter Details Date Type Department Care Team (Late st Contact Info) Description 10/27/2024 Refill [facility] [address] [place] [address] Mónica Adler APRN [address] [place] [address] Medication Refill Social History Tobacco Use Types [...] and sent to requesting pharmacy. Routed to [facility] if an appointment is needed. documented [...] documented as of this encounter Care Teams Practicing Dermatologist Relationship Specialty Start Date End Date Mónica Adler APRN [address] [place], [place] [id number] PCP - General Nurse Practitioner-Family 12/08/16 documented as of this encounter
--- OUTSIDE RECORDS SUMMARY | 2024-12-02 21:27 | XMS_ITS | Clinical Summary ---
Author Organization [facility] Address [address] [place], [place] [address] Phone Care Team Providers Care Medical Office Clerk Name Role Phone Mónica Adler FILI Primary Care Provider Allergies No known active allergies Medications calcium carbonate-vitami n D (CALCIUM-VITAMIN D) 500 mg(1,250mg) -200 unit Oral TabletIndication s:Hypocalcemia Take 1 Tablet by mouth 2 times daily. 60 Tablet 3 1 Active Additional Information Patient not taking.Reported on 11/10/2024 FARXIGA 5 mg Oral Tablet Take 5 [...] Active Additional Information Patient not taking.Reported on 11/10/2024 baclofen 5 mg Oral Tablet Take 1 Tablet by mouth 3 times daily. 4 Active rosuvastatin (CRESTOR) 5 mg Oral TabletIndication s:Dyslipidemia Take 1 Tablet by mouth nightly. 90 Tablet 3 5 Active iron sucrose (VENOFER) 200 mg iron/10 mL IV Solution Inject 10 mL into the vein every 7 days. 50 mL 5 Active Additional Information Patient not taking.Reported on 11/10/2024 sertraline (ZOLOFT) 100 mg Oral TabletIndication s:Generalized anxiety disorder Take 2 Tablets by mouth daily. 180 Tablet 2 5 Active diclofenac sodium (VOLTAREN) 50 mg Oral Tablet, Delayed Release (E.C.)Indication s:Degenerative disc disease, cervical,Degener ative disc disease, lumbar TAKE 1 TABLET BY MOUTH TWICE DAILY WITH FOOD NEEDED FOR PAIN 60 Tablet 2 5 Active tirzepatide, weight loss, (ZEPBOUND) 2.5 mg/0.5 mL SubQ Pen InjectorIndicati ons:ISAAC (obstructive sleep apnea),Nocturnal hypoxia Inject 2.5 mg under the skin once a week. 2 mL 5 Active Additional Information Patient not taking.Reason: hasnt started yet awaiting prior approval, Reported on 11/10/2024 albuterol (PROVENTIL HFA;VENTOLIN HFA) 90 mcg/actuation Inhl HFA Aerosol InhalerIndicatio ns:History of wheezing Inhale 2 Puffs into the lungs every 4 hours as needed. for wheezing 18 g 6 5 Active LEVOthyroxine (SYNTHROID) 75 mcg Oral TabletIndication s:Abnormal thyroid function test Take 1 Tablet by mouth daily. 100 Tablet 2 5 Active metoprolol succinate ER (TOPROL-XL) 100 mg Oral Tablet Sustained Release 24 hrIndications:Es sential hypertension Take 1 Tablet by mouth daily. 90 Tablet 3 5 Active nystatin (MYCOSTATIN) Top Cream Apply topically 2 times daily. to the affected area Active ALPRAZolam (XANAX) 0.5 mg Oral TabletIndication s:Generalized anxiety disorder Take 1 Tablet by mouth 2 times daily as needed for Anxiety. 60 Tablet 1 5 Active fluticasone propionate (FLONASE) 50 mcg/actuation Nasl Coleman, SuspensionIndica tions:Seasonal allergic rhinitis, unspecified trigger 1 Coleman by Nasal route daily. 1 Each 2 5 Active Active Problems Patient Care Coordination [...] (H) 12/22/2022 Diet control Assessment & Plan (11/10/2024 3:15 PM EDT): Orders: HEMOGLOBIN A1C; Future Recheck A1c and trend for prediabetes will adjust medications based on results Assessment & Plan (06/07/2024 12:39 PM EST): Lab Results Component Value Date HGBA1C 5.2 08/18/2023 HGBA1C 5.4 04/06/2023 HGBA1C 5.7 (H) 12/22/2022 Improved with weight loss and wegovy Orders: HEMOGLOBIN A1C; Future Bilateral sacroiliitis 08/18/2023 Overview (10/22/2023): Followed by spine clinic at [facility] Assessment & Plan (10/22/2023 4:49 PM [...] HCTZ daily as needed Iron deficiency anemia amna mckeon to inadequate dietary iron intake 06/25/2021 Overview (12/22/2022): Has seen hematology recently Completed 5 iron infusions. Assessment & Plan (11/10/2024 3:15 PM EDT): Orders: IRON+TIBC; Future CBC WITH DIFF; Future Will recheck iron and CBC and restart IV iron if needed. Assessment & Plan (12/22/2022 12:05 PM EDT): Due for follow-up labs. Degenerative disc disease, lumbar 11/21/2019 Assessment & Plan (06/07/2024 12:39 PM EST): Followed by pain mgmt. Assessment & Plan (04/22/2021 10:59 AM EST): Try to get results from [facility] - states she had imaging in [...] Thyroid management Anemia management. Assessment & Plan (11/10/2024 3:15 PM EDT): Orders: TSH REFLEX TO FT4; Future VITAMIN B12/ FOLIC ACID; Future Will evaluate chronic fatigue further with labs per above. Monitor anemia per above as well. Recently was diagnosed with obstructive sleep apnea but is not yet got her CPAP supplies. Chronic fatigue may be related to untreated sleep apnea currently. Advised to start CPAP as soon as she receives her supplies Assessment & Plan (06/07/2024 12:39 PM EST): Multiple factors Check labs and follow-up accordingly. Generalized anxiety disorder 12/08/2016 Overview (04/02/2022): on Zoloft 200mg with xanax nightly with occasional dose throughout the day as needed. At lowest tolerated dose Med mgmt reviewed and updated. Assessment & Plan (11/10/2024 3:15 PM EDT): Joseph reviewed at today's visit her last refill was on 09/11/2024 for 30 days supply per Joseph report. Anxiety well-controlled with Xanax at this time. Continue with current regimen. No side effects reported today. Orders: ALPRAZolam (XANAX) 0.5 mg Oral Tablet; Take 1 Tablet by mouth 2 times daily as needed for Anxiety. Assessment & Plan (06/07/2024 12:39 PM EST): State Prescription Drug Monitoring Program (i.e JOSEPH, TORO, OARS): - report reviewed today Urine Drug [...] 04/06/23 138/78 12/22/22 128/90 Assessment & Plan (11/10/2024 3:15 PM EDT): Hypertension at goal today continue current regimen follow-up BMP to monitor electrolytes and renal function Orders: BASIC METABOLIC PANEL; Future Assessment & Plan (06/07/2024 12:39 PM EST): [...] heart failure 08/18/2023 06/07/2024 Overview (08/18/2023): Saw [employer] cards. Per pt she has normal echo, [...] (10/22/2023 4:48 PM EDT): Being followed by [facility]. I believe she would be a [...] Encounters Date Type Department Care Team Description 11/13/2024 Results Follow-Up [address] [place] [phone] Mariusz Junior MD IRON+TIBC, CBC WITH DIFF, HEMOGLOBIN A1C, Additional followed-up results: 3 11/10/2024 2:45 PM EDT Office Visit [address] [place] [address] Mariusz Junior MD Iron deficiency anemia secondary to inadequate dietary iron intake (Primary Dx); Pre-diabetes; Essential hypertension; Generalized anxiety disorder; Seasonal allergic rhinitis, unspecified trigger; Chronic fatigue; Hyperparathyroidism, primary 11/09/[address] [place] [address] Nayely, Mónica, LIVESTOCK SHOWMAN Medication Refill 10/30/[address] [place] [address] Mondamin, Mónica, LIVESTOCK SHOWMAN Medication Refill 10/27/[address] [place] [address] Nayely, Mónica, LIVESTOCK SHOWMAN Medication Refill 10/27/2024 Orders Only [address] [place] [phone] Chandrika Zimmerman CCMA ISAAC (obstructive sleep apnea); Nocturnal hypoxia 10/10/[address] [place] [address] Nayely, Mónica, LIVESTOCK SHOWMAN Medication Refill 10/10/[address] [place] [address] Mariusz Junior MD Medication Refill 10/09/[address] [place] [address] MondaminSerjio fernandoika, LIVESTOCK SHOWMAN Referral ([facility] called requesting add'l info on patient in order to schedule there - please advise) 09/22/2024 Telephone [place] [address] [place] [phone] Mónica Adler, LIVESTOCK SHOWMAN Results 09/18/2024 Refill [facility] [place] [address] [place] [address] Mónica Adler, LIVESTOCK SHOWMAN Medication Refill 09/18/2024 Refill [place] [address] [place] [phone] Mariusz Junior MD Medication Refill 09/08/2024 Refill [place] [address] [place] [phone] MondaminMónica fernando, LIVESTOCK SHOWMAN Medication Refill from Last 3 Months Immunizations [...] Attack Father Tom greenfield age 67 - [place] Vision Loss Father Tom [place] No Known [...] Mass Index 47.14 11/10/2024 2:50 PM EDT Plan of Treatment Health Maintenance Due Date Last Done Comments DTaP/TDaP/Td (1 - Tdap) 1994 HPV/Pap Cotest 2005 Colonoscopy 2020 FIT 2020 Sigmoidoscopy 2020 Virtual Colonography 2020 Hepatitis B Vaccine (2 of 2 - CpG 2-dose series) 2023 04/06/2023 COVID-19 Vaccine ( - 2023-2 5 season) 2023 Cervical Cancer [...] Procedure Name Priority Date/Time Associated Diagnosis Comments VITAMIN B12/ FOLIC ACID Routine 11/10/2024 3:17 PM EDT Chronic fatigue TSH REFLEX TO FT4 Routine 11/10/2024 3:1 7 PM EDT Chronic fatigue BASIC METABOLIC PANEL Routine 11/10/2024 3:17 PM EDT Essential hypertension HEMOGLOBIN A1C Routine 11/10/2024 3:17 PM EDT Pre-diabetes CBC WITH DIFF Routine 11/10/2024 3:17 PM EDT Iron deficiency anemia secondary to inadequate dietary iron intake IRON+TIBC Routine 11/10/2024 3:17 PM EDT Iron deficiency anemia secondary to inadequate dietary iron intake PARATHYROID HORMONE INTACT Routine 11/10/2024 3:17 PM EDT Hyperparathyroidism, primary HM MAMMOGRAPHY Routine 12/30/2022 7:23 AM EDT COLOGUARD Routine 09/16/2022 10:30 PM EDT Special screening for malignant neoplasms, colon Screening for malignant neoplasm of the rectum EMERGENCY VETERINARY ASSISTANT CYTOLOGY REQUEST (PAP ONLY) Routine 08/07/2021 1:45 PM EDT Cervical cancer screening from Last 3 Months or Most Recently Relevant to Health Maintenance Results * (ABNORMAL) IRON+TIBC (11/10/2024 3:17 PM EDT) Pathologist [facility] Iron 47 30 - 160 mcg/dL 11/10/2024 10:26 PM EDT [facility] Transferrin 217 200 - 360 mg/dL 11/10/2024 10:26 PM EDT [facility] Transferrin Saturation 15(L) 20 - 50 % 11/10/2024 10:26 PM EDT [facility] TIBC 304 250 - 400 mcg/dL 11/10/2024 10:26 PM EDT [facility] Blood VENOUS BLOOD / Unknown Venipuncture / Unknown 11/10/2024 3:17 PM EDT 11/10/2024 3:17 PM EDT Mariusz Junior MD CHEMISTRY ORDERABLES Final Res ult Performing Organization Address [facility] de Phone Number [facility], [address] , [place] [address] * VITAMIN B12/ FOLIC ACID (11/10/2024 3:17 PM EDT) Pathologist [facility] Vitamin B12 323 232 - 1,245 pg/mL 11/10/2024 9:59 PM EDT [facility] Folate 12.90 >=4.80 ng/mL 11/10/2024 9:59 PM EDT [facility] Blood VENOUS BLOOD / Unknown Venipuncture / Unknown 11/10/2024 3:17 PM EDT 11/10/2024 3:17 PM EDT Narrative [facility] - 11/10/2024 9:59 PM EDT Ingestion of inez doses of biotin (>5 mg/day) taken within 8 hours of drawing blood sample can interfere with this immunoassay test. Mariusz Junior MD CHEMISTRY ORDERABLES Final Res ult Performing Organization Address [facility] de Phone Number [facility], [address] , [place] [address] * TSH REFLEX TO FT4 (11/10/2024 3:17 PM EDT) Pathologist [facility] TSH Reflex 1.040 0.270 - 4.200 mcIU/mL 11/10/2024 10:26 PM EDT [facility] [employer] Blood VENOUS BLOOD / Unknown Venipuncture / Unknown 11/10/2024 3:17 PM EDT 11/10/2024 3:17 PM EDT Narrative [facility] - 11/10/2024 10:26 PM EDT Ingestion of inez doses of biotin (>5 mg/day) taken within 8 hours of drawing blood sample can interfere with this immunoassay test. us Mariusz Junior MD CHEMISTRY ORDERABLES Final Res ult [facility] [address] , [place] [address] * (ABNORMAL) CBC WITH DIFF (11/10/2024 3:17 PM EDT) Pathologist [facility] WBC 9.5 3.7 - 10.3 x10(3)/mcL 11/10/2024 9:29 PM EDT [facility] RBC 5.50(H) 3.90 - 5.20 x10(6)/mcL 11/10/2024 9:29 PM EDT [facility] Hgb 12.9 11.2 - 15.7 g/dL 11/10/2024 [...] 11/10/2024 9:29 PM EDT [facility] RDW 16.8(H) <=14.9 % 11/10/2024 9:29 PM EDT [facility] Platelet 226 155 - 369 x10(3)/mcL 11/10/2024 9:29 PM EDT [facility] MPV 10.4 8.8 - 12.5 fL 11/10/2024 9:29 PM EDT [facility] Neut Percent 74.4 % 11/10/2024 9:29 PM EDT [facility] Comment:Neutrophils equals s egs plus bands Imm Gran% 0.5 % 11/10/2024 9:29 PM EDT [facility] Comment:Automated count of m etamyelocytes, myelocytes and promyelocytes. Lymph Percent 17.7 % 11/10/2024 9:29 PM EDT [facility] [place] Percent 4.9 % 11/10/2024 9:29 PM EDT [facility] Eos Percent 2.0 % 11/10/2024 9:29 PM EDT [facility] Baso Percent 0.5 % 11/10/2024 9:29 PM EDT [facility] Neut # 7.0(H) 1.6 - 6.1 x10(3)/mcL 11/10/2024 9:29 PM EDT [facility] Comment:Neutrophils equals s egs plus bands IMMGRAN# 0.1 0.0 - 0.1 x10(3)/mcL 11/10/2024 9:29 PM EDT [facility] Comment:Automated count of m etamyelocytes, myelocytes and promyelocytes. An absolute IG <0.1 is reported as 0.0. Lymph # 1.7 1.2 - 3.9 x10(3)/mcL 11/10/2024 9:29 PM EDT [facility] [place] # 0.5 0.3 - 0.9 x10(3)/mcL 11/10/2024 9:29 PM EDT [facility] Eos# 0.2 0.0 - 0.5 x10(3)/mcL 11/10/2024 9:29 PM EDT [facility] Baso # 0.1 0.0 - 0.1 x10(3)/mcL 11/10/2024 9:29 PM EDT [facility] [employer] Blood VENOUS BLOOD / Unknown Venipuncture / Unknown 11/10/2024 3:17 PM EDT 11/10/2024 3:17 PM EDT us Mariusz Junior MD HEMATOLOGY ORDERABLES Final Re sult [facility] [employer] [address] , [place] [address] * (ABNORMAL) PARATHYROID HORMONE INTACT (11/10/2024 3:17 PM EDT) Pathologist [facility] PTH Intact 79.30(H) 15.00 - 65.00 pg/mL 11/10/2024 10:07 PM EDT [facility] [employer] Blood VENOUS BLOOD / Unknown Venipuncture / Unknown 11/10/2024 3:17 PM EDT 11/10/2024 3:17 PM EDT Narrative [facility] - 11/10/2024 10:07 PM EDT Intact PTH [...] sample can interfere with this immunoassay test. us Mónica Adler LIVESTOCK SHOWMAN CHEMISTRY ORDERABLES Final Result Performing Organization Address City/[facility]/ZIP Co de Phone Number [facility] [address] , [place] [address] * HEMOGLOBIN A1C (11/10/2024 3:17 PM EDT) Hgb A1C 5.5 4.2 - 5.6 % 11/10/2024 9:54 PM EDT [facility] Est. Avg Glucose 111 mg/dL 11/10/2024 9:54 PM EDT [facility] Blood VENOUS BLOOD / Unknown Venipuncture / Unknown 11/10/2024 3:17 PM EDT 11/10/2024 3:17 PM EDT Narrative [facility] - 11/10/2024 9:54 PM EDT REFERENCE RANGE: Normal: 4.0-5.6% Pre-diabetes: 5.7-6.4% Provisional diagnosis of diabetes: >6.4% Hgb F>10% and anything which shortens red cell survival, such as hemolytic anemia, or unstable hemoglobin variants such as HbSS, HbSC, or HbCC, will lower the HbA1c value associated with a given level of glycemic control. us Mariusz Junior MD CHEMISTRY ORDERABLES Final Res ult [facility] [address] , [address] [place], [place] [id number] * BASIC METABOLIC PANEL (11/10/2024 3:17 PM EDT) Sodium 137 136 - 145 mmol/L 11/10/2024 10:26 PM EDT [facility] Potassium 4.0 3.5 - 5.0 mmol/L 11/10/2024 10:26 PM EDT [facility] Chloride 100 98 - 107 mmol/L 11/10/2024 10:26 PM EDT [facility] Total CO2 24 22 - 29 mmol/L 11/10/2024 10:26 PM EDT [facility] Anion Gap 13 7 - 16 mmol/L 11/10/2024 10:26 PM EDT [facility] Calcium 9.3 8.6 - 10.4 mg/dL 11/10/2024 10:26 PM EDT [facility] Glucose Lvl 90 70 - 99 mg/dL 11/10/2024 10:26 PM EDT [facility] BUN 15 6 - 20 mg/dL 11/10/2024 10:26 PM EDT [facility], [facility] Creatinine 0.72 0.51 - 1.30 mg/dL 11/10/2024 10:26 PM EDT [facility] eGFR (CKD-EPIcr 2020) 102 >=60 mL/min/1.7 3 m2 11/10/2024 10:26 PM EDT [facility] Comment:Estimated GFR was ca lculated using the CKD-EPIcr (2020) equation refit without race. The equation is recommended by the National Kidney Foundation - [place] Society of Nephrology Task Force. Blood VENOUS BLOOD / Unknown Venipuncture / Unknown 11/10/2024 3:17 PM EDT 11/10/2024 3:17 PM EDT Mariusz Junior MD CHEMISTRY ORDERABLES Final Res ult [facility] [address] , [place] [address] * HM MAMMOGRAPHY (12/30/2022 7:23 AM EDT) [facility] Provider HEALTH MAINTENANCE Final Res ult SEP OFFICE * COLOGUARD (09/16/2022 10:30 PM EDT) COLOGUARD CLINICAL REPORT Negative Negative [facility] Comment: NEGATIVE TEST RESULT. A [...] screened with both Cologuard and colonoscopy. (Haider Farnsworth, N Engl J Med 2014;370(14):1252-3774) The normal value (reference range) for this assay is negative. COLOGUARD RE-SCREENING RECOMMENDATION: Periodic colorectal cancer screening is an important part of preventive healthcare for asymptomatic individuals at average risk for colorectal cancer. Following a negative Cologuard result, the [place] Cancer Society and U.S. Multi-Society Task Force screening guidelines recommend a Cologuard re-screening interval of 3 years. References: [place] Cancer Society Guideline for Colorectal Cancer Screening: https://www.cancer.org/cancer/yzrzv-jauatv-xjilhg/wlrhorbwr-gtpsiqbdg-cliodvl/ac s-rec ommendations.html.; Calin DK, Mary CR, Marco Antonio HallK, Colorectal Cancer Screening: Recommendations for Physicians and Patients from the U.S. Multi-Society Task Force on Colorectal Cancer Screening , Am J Gastroenterology 2017; 112:3587-4800. TEST DESCRIPTION: Composite algorithmic analysis of stool [...] screened with both Cologuard and colonoscopy. (Haider Farnsworth, N Engl J Med 2014;370(14):2000-3260.) Cologuard may produce a false negative or false positive result (no colorectal cancer or precancerous polyp present at colonoscopy follow up). A negative Cologuard test result does not guarantee the absence of CRC or advanced adenoma (pre-cancer). The current Cologuard screening interval is every 3 years. ([place] Cancer Society and U.S. Multi-Society Task Force). Cologuard performance data in a 10,000 patient pivotal study using colonoscopy as the reference method can be accessed at the following location: www.[employer].Kontiki/results. Additional description of the Cologuard test process, warnings and precautions can be found at www.cologuard.com. Stool 09/16/2022 10:3 0 PM EDT 09/18/2022 8:25 PM EDT Mónica [place] APRN [facility] [facility] - ORDERABLES Final Result Performing Organization Address City/State/[facility] Co de Phone Number [employer], [place] [address], [facility] [employer] [address] [place] [address] * EMERGENCY VETERINARY ASSISTANT CYTOLOGY REQUEST (PAP ONLY) (08/07/2021 1:45 PM EDT) CASE REPORT Gynecologic Cytology Report Case: [id number] Authorizing Provider: Mónica Adler APRN Collected: 08/07/2021 1345 Ordering Location: [facility] Received: 08/07/2021 1345 First Screen: Sandra Calhoun CT Rescreen: Yohana Richey CT Specimen: LIQUID-BASED PAP - CERVICAL/ENDOCERV ICAL, Cervix, Endocervical 08/12/2021 3:28 PM EDT [facility] PAP FINAL DIAGNOSIS Negative for intraepithelial lesion or malignancy 08/12/2021 3:28 PM EDT [facility] at 1528 EDT MICROSCOPIC DESCRIPTION Microscopic examination is performed and the findings corroborate the diagnosis. 08/12/2021 3:28 PM EDT [facility] PAP SMEAR ADEQUACY Satisfactory for evaluation 08/12/2021 3:28 PM EDT [facility] SPECIMEN LIMITATIONS Obscured by inflammation 08/12/2021 3:28 PM EDT [facility] PAP ORGANISMS NOTED Abundant bacteria present. 08/12/2021 3:28 PM EDT [facility] ENDOCERVICAL T-ZONE Transformation zone absent. 08/12/2021 3:28 PM EDT [facility] EMBEDDED IMAGES 3:28 PM EDT [facility] PAP DISCLAIMER This case was [...] before definitive therapy. Processed using the ThinPrep Heel Lift Gouger Automated cytology screening device (Websense). 08/12/2021 3:28 PM EDT [facility] Thin Prep ENDOCERVICAL STRUCTURE / Unknown 08/07/2021 1:45 PM EDT 08/07/2021 1:45 PM EDT Mónica Adler LIVESTOCK SHOWMAN CYTOLOGY ORDERABLES Final R esult [facility] [address] [place] [address] from Last 3 Months or Most Recently Relevant to Health Maintenance Insurance [employer] [address] [facility] DUAL COMPLETE HMO [place] [facility] [place] [address] [facility] DUAL COMPLETE HMO [place] [employer] [facility] [place] Care Teams Medical Office Clerk Relationship Specialty Start Date End Date Mónica Adler APRN [address] [place] [id number] PCP - General Nurse Practitioner-Family 12/08/16
--- OUTSIDE RECORDS SUMMARY | 2024-12-02 21:27 | XMS_ITS | Encounter Summary ---
Author Organization [place] [address] Care Team Providers Care Manager Distribution Name Role Phone Mónica Adler APRN Primary Care Provider [phone] Reason for Visit * Reason Onset Date Comments Medication Refill 10/30/2024 Encounter Details Date Type Department Care Team (Late st Contact Info) Description 10/30/2024 Refill SE[facility] [address] [place] [id number] Mónica Adler APRN [address] [place] [address] Medication Refill Social History Tobacco Use [...] as of this encounter Care Teams Manager Distribution Relationship Specialty Start Date End Date Mónica Adler APRN [address] [place] [address] PCP - General Nurse Practitioner-Family 12/08/16 documented as of this encounter
--- OUTSIDE RECORDS SUMMARY | 2024-12-02 21:27 | XMS_ITS | Encounter Summary ---
Author Organization [place] [address] Care Team Providers Care Business Line Controller Name Role Phone Mónica Adler APRN Primary Care Provider [phone] Encounter Details Date Type Department Care Team (Late st Contact Info) Description 10/27/2024 Orders Only [facility] [address] [place] [address] Chandrika Zimmerman CCMA ISAAC (obstructive sleep [...] Hypoxemia documented in this encounter Care Teams Business Line Controller Relationship Specialty Start Date End Date Mónica Adler APRN [address] [place], [place] [address] PCP - General Nurse Practitioner-Family 12/08/16 documented as of this encounter
--- OUTSIDE RECORDS SUMMARY | 2024-12-02 21:27 | XMS_ITS | Encounter Summary ---
Author Organization [place] [address] Care Team Providers Care Metal Hanging Helper Name Role Phone Mónica Adler APRN Primary Care Provider [phone] Reason for Visit * Reason Onset Date Comments Referral 10/09/2024 [facility] called requesting add'l info on patient in order to schedule there - please advise Encounter Details Date Type Department Care Team (Late Contact Info) Description 10/09/2024 Telephone SEP Kiara VILLARREAL [address] [place] [address] Mónica Adler APRN [address] [place] [address] Referral ([facility] called requesting add'l [...] in doing things 3 11/10/2024 2:50 PM Giovanna Arita RMA Feeling down, depressed, or hopeless 1 11/10/2024 2:50 PM Giovanna Arita RMA PHQ-2 Total Score 4 11/10/2024 2:50 PM Giovanna Arita RMA Trouble falling or staying asleep, or sleeping too much 1 11/10/2024 2:50 PM Giovanna Arita RMA Feeling tired or having kd le energy 3 11/10/2024 2:50 PM Giovanna Arita RMA Poor appetite or overeating 1 11/10/2024 2: 50 PM Giovanna Arita RMA Feeling bad about yourself - or that you are a failure or have let yourself or your family down 1 11/10/2024 2:50 PM Giovanna Arita RMA Trouble concentrating on things, such as reading the newspaper or watching television 1 11/10/2024 2:50 PM EDT Giovanna Kan RMA Moving or speaking so slowly that other people could have noticed. Or the opposite - being so fidgety or restless that you have been moving around a lot more than usual 0 11/10/2024 2:50 PM EDT Giovanna Kan RMA Thoughts that you would be better off , or of hurting yourself in some way 0 11/10/2024 2:50 PM EDT Giovanna Kan RMA PHQ-9 Total Score 11 11/10/2024 2:50 PM EDT Giovanna Kan RMA * PHQ-2 Total Score Answer Date of Assessment Author 4 11/10/2024 2:50 PM EDT Emigdio Kan RMA documented as of this encounter Mental [...] you on 10/11 * Telephone Encounter - Tiffanie Esposito - 10/09/2024 3:22 PM EDT Select the most appropriate reason for this telephone message: Referral Request Who is requesting the referral: Other [facility] What type of referral: REF99 - AMB REFERRAL TO SLEEP STUDIES/MEDICINE none 1 1 [id number] (CPT??) - [place] OFFICE/OUTPATIENT NEW MODERATE MDM 45 MINUTES none What is the reason / diagnosis for this referral:R29.818 (ICD-10-CM) - 781.99 (ICD-9-CM) - Suspected sleep apnea Have you been seen by your PCP for this issue: Yes Does patient have a preference on a group/provider: Yes (if yes, complete preferred provider info below) Preferred Provider/Group Name: [facility] Preferred Provider/Group Preferred [...] maintain an ideal body weight General No Mendiola Mohini N, RMA documented as of this encounter Visit Diagnoses Not on filedocumented in this encounter Care Teams Metal Hanging Helper Relationship Specialty Start Date End Date Mónica Adler [place] [address] [place] [address] PCP - General Nurse Practitioner-Family 12/08/16 documented as of this encounter
--- OUTSIDE RECORDS SUMMARY | 2024-12-02 21:28 | XMS_ITS | Encounter Summary ---
Author Organization [place] [address] Care Team Providers Care Retail Loss Prevention Officer Name Role Phone Mónica Adler APRN Primary Care Provider [phone] Reason for Visit * Reason Onset Date Comments Medication Refill 10/10/2024 Encounter Details Date Type Department Care Team (Late st Contact Info) Description 10/10/2024 Refill SEP Kiara [address] [place] [id number] Mónica Adler APRN [address] [facility] [place] [address] Medication Refill Social History Tobacco Use [...] documented as of this encounter Care Teams Retail Loss Prevention Officer Relationship Specialty Start Date End Date Mónica Adler APRN [address] [place] [address] PCP - General Nurse Practitioner-Family 12/08/16 documented as of this encounter
--- OUTSIDE RECORDS SUMMARY | 2024-12-02 21:28 | XMS_ITS | Encounter Summary ---
Author Organization [place] [address] Care Team Providers Care Broadcast Director Operations Name Role Phone Mónica Adler MARINE ELECTRICIAN APPRENTICE Primary Care Provider [phone] Reason for Visit * Reason Onset Date Comments Medication Refill 10/10/2024 Encounter Details Date Type Department Care Team (Late st Contact Info) Description 10/10/2024 Refill SEP Kiara [address] [place] [id number] Mariusz Junior MD [address] [place] [address] [place] [address] Medication Refill Social History Tobacco Use Types [...] Blood Pressure 128/74(2024 2:50 PM EDT) Mohini Jimenez, ROBINA Maintain a healthy diet, exercise regularly and [...] documented as of this encounter Care Teams Broadcast Director Operations Relationship Specialty Start Date End Date Mónica Adler APRN [address] [place], [place] [address] PCP - General Nurse Practitioner-Family 12/08/16 documented as of this encounter
[2024-12-02 21:30] VITALS: BP 141/84; PULSE 70; RESP 18; TEMP 36.7; O2SAT 98; BMI 40.4
[2024-12-02 21:31] VITALS: BP 137/78; PULSE 70; O2SAT 96
--- NOTE | 2024-12-02 21:34 | CT_ITS ---
PROCEDURE INFORMATION: Exam: CT Abdomen And Pelvis With Contrast Exam date and time: 12/02/2024 10:28 PM Age: 49 years old Clinical indication: Abdominal pain; Additional info: Flank pain, rlq tenderness TECHNIQUE: Imaging protocol: Computed tomography of the abdomen and pelvis with contrast. Radiation optimization: All CT scans at this facility use at least one of these dose optimization techniques: automated exposure control; mA and/or kV adjustment per patient size (includes targeted exams where dose is matched to clinical indication); or iterative reconstruction. Contrast material: ISOVUE; Contrast volume: 75 ml; Contrast route: IV; COMPARISON: CT ABDOMEN PELVIS W CON 07/25/2024 4:22 PM FINDINGS: Lungs: Visualized lung bases demonstrate no acute abnormality. Liver: No focal liver lesion is identified. Gallbladder and biliary ducts: No visualized gallstones (not all gallstones are visible via CT). No wall thickening or surrounding inflammation. No bile duct dilation. Pancreas: No peripancreatic inflammatory change or significant pancreatic duct dilation. Spleen: Splenic size is within normal limits. No focal splenic lesion is identified. Accessory splenule. Adrenal glands: The adrenal glands are unremarkable. Kidneys and ureters: Roughly 3 mm nonobstructive right renal stone. Roughly 3 mm nonobstructive left renal stone. No stones in the ureters. Unchanged pelvic calcifications are phleboliths. No hydronephrosis. No renal perfusion defects or perinephric inflammation. 20 mm simple appearing right renal cyst. Stomach and bowel: The stomach is unremarkable. No small bowel obstruction or acute inflammatory change. The colon is not obstructed or inflamed. Appendix: Wispy appendix is again noted. No evidence of acute appendicitis. Intraperitoneal space: No free fluid or free air. Vasculature: The abdominal aorta is nonaneurysmal. Lymph nodes: Unremarkable. No enlarged lymph nodes. Urinary bladder: No stones in the bladder. Reproductive: New 30 mm left ovarian cyst. Previously seen right ovarian cyst has resolved. Uterus is unremarkable. Bones/joints: Roughly stable spinal degenerative changes most pronounced at L4-L5 and L5-S1. Soft tissues: Post umbilical hernia repair. IMPRESSION: 1. Bilateral nonobstructive renal stones. No stones in the ureters or the bladder. No hydronephrosis. 2. New 30 mm left ovarian cyst. COMMENTS: Consistent with the [employer]'s Incidental Findings Committee white paper (J Am Kath Radiol 2018): Any incidental renal lesion less than 1 cm or classified as too small to characterize, or any incidental cystic renal lesion characterized as simple-appearing, is likely benign. No follow-up imaging is recommended for these lesions per consensus recommendations based on imaging criteria.
[2024-12-02 21:38] LABS: Microscopic, Urine URINE MICROSCOPIC (MICROSCOPIC)
[2024-12-02 21:44] LABS: Bilirubin,Urine Negative (Negative); Color,Urine YELLOW (Yellow); Glucose,Urine (UA) 3+ (Negative); Ketones,Urine TRACE (Negative); Leukocyte Esterase,Urine Negative (Negative); PH,Urine 6.0 (5.0-8.5); Protein,Urine Negative (Negative); Specific Gravity, Urine 1.025 (1.005-1.030); Urobilinogen,Urine 0.2 EU/dl (0.2)
[2024-12-02] MEDS: ONDANSETRON 4MG/2ML VIAL 4 MG IV (21:45)
[2024-12-02] MEDS: MORPHINE 4MG/ML SYRINGE 4 MG IV (21:45)
[2024-12-02 21:57] LABS: Hematocrit 39.1 % (37.0-47.0); Hemoglobin 12.3 g/dL (12.2-16.2); Immature Granulocytes % 0.3 %; Mean Corpuscular HGB Conc 31.5 g/dL (31.8-35.4); Mean Corpuscular Hemoglobin 24.8 pg (27.0-31.2); Mean Corpuscular Volume 79.0 fl (81-99); Nucleated Red Blood Cells % 0 %; Platelet Count 235 K/mm3 (142-424); Red Blood Count 4.95 M/mm3 (4.20-5.40); Red Cell Distribution Width-SD 46.0 fL; White Blood Count 11.9 K/mm3 (4.8-10.8)
[2024-12-02 22:01] VITALS: BP 121/71; PULSE 71; O2SAT 95
[2024-12-02 22:09] LABS: Alanine Aminotransferase 20 U/L (12-78); Albumin Level 4.1 g/dl (3.5-5.0); Albumin/Globulin Ratio 1.3 (1.1-1.8); Alkaline Phosphatase 82 U/L (38-126); Anion Gap 9.8 mEq/L (5-15); Aspartate Amino Transferase 32 U/L (14-36); Bilirubin,Total 0.4 mg/dl (0.2-1.3); Blood Urea Nitrogen 15 mg/dl (7-17); Calcium 8.7 mg/dl (8.4-10.2); Carbon Dioxide 28 mmol/L (22.0-30.0); Chloride 105 mmol/L (98-107); Creatinine Clearance Estimated 162 mL/min (50-200); Creatinine,Serum 0.80 mg/dl (0.52-1.04); Estimated Glomerular Filt Rate 76 ml/min (>60); GFR (African American) 92 ML/MIN (>60); Globulin 3.1 g/dL (1.3-3.2); Glucose 85 mg/dl (74-100); Lipase 93 U/L (23-300); Potassium 3.8 mmoL/L (3.5-5.1); Sodium 139 mmol/L (136-145); Total Protein,Serum 7.2 g/dl (6.3-8.2)
[2024-12-02 22:14] LABS: HCG Qualitative, Serum Negative (Negative)
[2024-12-02] MEDS: IOPAMIDOL-370 (76%);100ML BOTTLE 75 ML IV (22:30)
[2024-12-02] MEDS: SODIUM CHLORIDE 0.9% 10ML SYR (RAD ONLY) 10 ML IV (22:30)
[2024-12-02 23:01] VITALS: BP 106/54; PULSE 68; RESP 16; O2SAT 95
[2024-12-02 23:31] VITALS: BP 108/57; PULSE 66; RESP 16; O2SAT 97
[2024-12-02 23:45] LABS: Bacteria,Urine 1+ /lpf; WBC,Urine Occasional #/hpf (0-3)
[2024-12-03] VITALS (26 sets, daily range): BP systolic 99–166; BP diastolic 52–94; PULSE 58–73; RESP 16–18; TEMP 36.2–36.6; O2SAT 90–98; BMI 47.9; BMI 48.4
[2024-12-03] MEDS: MORPHINE 4MG/ML SYRINGE 4 MG IV (00:36)
[2024-12-03] MEDS: PIPERACILLIN/TAZO 4.5 GM in 0.9 % SODIUM CHLORIDE 100 ML IV ×4 (00:48→18:02)
[2024-12-03] MEDS: 0.9 % SODIUM CHLORIDE 1000ML 1,000 ML 100 ML IV ×2 (00:49→11:07)
--- NOTE | 2024-12-03 01:15 | PC.NURSE ---
pt arrived on the floor at this time
--- NOTE | 2024-12-03 01:23 | EXP.HP ---
History of Present Illness *Admission Date: 12/03/24 *Reason for visit:: Right upper quadrant and right flank pain *History of present illness: This is a 49-year-old female with past medical history of morbid obesity, thyroid nodules, recurrent kidney stones presents emergency department today with complaints of right upper quadrant and right flank pain. She reports pain started a few weeks ago but it is waxed and waned. States she has had worsening pain over the last several days. States that pain is constant with intermittent episodes of acute worsening. States that she has tried to change some of her diet which has not alleviated the pain. Was told at some point over the last month or so that she had sludge in her liver . Does endorse nausea and vomiting. Denies any fever but does endorse chills. Emergency department workup notable for mostly negative workup. CT abdomen pelvis without gross abnormality. Per ED provider, POCUS exam significant for pericholecystic fluid/acute cholecystitis and gallbladder wall thickening with sludge. She was medicated with antiemetics, parenteral pain medication and IV antibiotics admitted to the hospital service [facility] Disclaimer: The information contained in this section may have been updated after the patient was seen, as this information can be updated by other users. Medical History (Updated 12/03/24 @ 01:27 by BETZY Watson) Multiple thyroid nodules CHF (congestive heart failure) Asthma HLD (hyperlipidemia) HTN (hypertension) Anxiety Hyperparathyroidism Elevated brain natriuretic peptide (BNP) level Anemia Surgical History (Updated 11/20/24 @ 11:22 by ONIEL Gonzales) Status post fine needle aspiration History of hernia repair Family History Other Family history of acute congestive heart failure Family history of diabetes mellitus type II Family history of hyperlipidemia Family history of hypertension Social History Smoking Status: Never smoker alcohol intake: never current occupational status: other Travel in the last 8 weeks?: None household members: other housing: house current occupational exposures/hazards: No Have you lived/traveled outside [place] in past 30 days?: No Contact w/someone who lives/traveled outside US past 30 days?: No Exposure to someone with infectious disease in past 14 days?: No Do you have a fever (greater than 100.4 F or 38 C)?: No Have you tested positive for COVID-19?: No Exposed to someone with COVID-19 in past 14 days?: No Do you have a sore throat?: No Do you have a cough?: No Do you have any weakness?: No Do you have any diarrhea?: No Are you experiencing any unusual bleeding?: No Do you have any muscle aches/pain?: No Do you have any abdominal pain?: No Are you experiencing loss of taste or smell?: No Other Medical History Have you received the Flu Vaccine for this season: No Have you received the Pneumonia Vaccine: No Review of Systems Review of Systems Review of systems:: pertinent systems reviewed and negative unless documented below Review of systems (narrative): Negative except for HPI Meds Home Medications and Allergies Home Medications ?Medication ?Instructions ?Recorded ?Confirmed ?Type sertraline 100 mg tablet 150 mg PO DAILY Depression 03/26/18 10/23/24 History alprazolam 0.5 mg tablet 0.5 mg PO BID Anxiety 09/14/19 11/20/24 History diclofenac sodium 50 mg 50 mg PO BID 06/16/23 10/23/24 History tablet,delayed release levothyroxine 75 mcg tablet 75 mcg PO DAILY 06/16/23 10/23/24 History baclofen 5 mg tablet 5 mg PO TID #90 tabs 07/06/24 11/20/24 Rx celecoxib 200 mg capsule (Celebrex) 200 mg PO DAILY #14 caps 07/06/24 11/20/24 Rx tamsulosin 0.4 mg capsule (Flomax) 0.4 mg PO HS #14 caps 07/25/24 10/23/24 Rx dapagliflozin propanediol 5 mg 5 mg PO DAILY Diabetes #30 tabs 08/24/24 11/20/24 Rx tablet (Farxiga) metoprolol succinate 100 mg 100 mg PO DAILY Hypertension #90 09/06/24 10/23/24 Rx tablet,extended release 24 hr tabs rosuvastatin 5 mg tablet 5 mg PO DAILY #90 tabs 09/06/24 10/23/24 Rx tirzepatide (weight loss) 2.5 2.5 mg (0.5 mL) SQ WEEKLY #2 mL 10/23/24 10/23/24 Rx mg/0.5 mL subcutaneous pen injector (Zepbound) albuterol sulfate 90 mcg/actuation inhalation 11/20/24 11/20/24 History aerosol inhaler fluticasone propionate 50 intranasal 11/20/24 11/20/24 History mcg/actuation nasal spray,suspension levocetirizine 5 mg tablet 5 mg PO DAILY #30 tabs 11/20/24 11/20/24 Rx New Prescriptions to Start Prescriptions: Allergies Allergy/AdvReac Type Severity Reaction Status Date / Time No Known Allergies Allergy Verified 11/20/24 11:06 Exam Data for Last 24 hours Vital signs and Labs for Last 24 Hours: Temp Pulse Resp BP Pulse Ox O2 Del Method 97.6 F 67 18 130/78 95 Room Air 12/03/24 01:11 12/03/24 01:11 12/03/24 01:11 12/03/24 01:11 12/03/24 00:45 12/03/24 01:11 Laboratory Results - last 24 hr 12/02/24 21:20: Urine Color Yellow, Urine Appearance Clear, Urine pH 6.0, Ur Specific [place] 1.025, Urine Protein Negative, Urine Glucose (UA) 3+, Urine Ketones Trace, Urine Blood 2+ A, Urine Nitrate Negative, Urine Bilirubin Negative, Urine Urobilinogen 0.2, Ur Leukocyte Esterase Negative, Urine RBC 3-5, Urine WBC Occasional, Ur Squamous Epith Cells 5-10, Urine Bacteria 1+ 12/02/24 21:45: WBC 11.9 H, RBC 4.95, Hgb 12.3, Hct 39.1, MCV 79.0 L, MCH 24.8 L, MCHC 31.5 L, RDW 16.2, Plt Count 235, MPV 10.5 H, Neut % (Auto) 74.8, Lymph % (Auto) 17.2, [place] % (Auto) 5.6, Eos % (Auto) 1.8, Baso % (Auto) 0.3, Neut # (Auto) 8.9 H, Lymph # (Auto) 2.1, [place] # (Auto) 0.7, Eos # (Auto) 0.2, Baso # (Auto) 0.0, Sodium 139, Potassium 3.8, Chloride 105, Carbon Dioxide 28, Anion Gap 9.8, BUN 15, Creatinine 0.80, Estimated Creat Clear 162, Estimated GFR 76, Est GFR ( Amer) 92, Glucose 85, Calcium 8.7, Total Bilirubin 0.4, AST 32, ALT 20, Alkaline Phosphatase 82, Total Protein 7.2, Albumin 4.1, Globulin 3.1, Albumin/Globulin Ratio 1.3, Lipase 93, Serum HCG, Qual Negative I & O for Last 24 hours: Intake & Output 11/30/24 12/01/24 12/02/24 12/03/24 23:59 23:59 23:59 23:59 Weight 120.656 kg Constitutional Constitutional: no acute distress *Routine HEENT Exam Head: Present normocephalic Eye: Present EOMI and PERRL ENT: Present mucous membranes moist *Routine Neck Exam Neck: Present supple; Absent lymphadenopathy *Routine Respiratory Exam Respiratory: Present CTA bilaterally *Routine Cardiovascular Exam Cardiovascular: Present RRR *Routine Abdominal Exam Abdominal: Present soft, normoactive bowel sounds and tenderness (Right upper quadrant pain) *Routine Rectal Exam Rectal:: deferred *Routine Genitalia Exam Genitalia:: deferred *Routine Extremities Exam Extremities: Absent cyanosis, clubbing or edema *Routine Skin Exam Skin: Present warm; Absent rash *Routine Neurological Exam Neurological: Present alert and oriented X3 Assessment and Plan *Assessment and plan (1) Acute cholecystitis: Status: Acute Category: Medical Code(s): K81.0 - Acute cholecystitis (2) Multiple thyroid nodules: Status: Acute Category: Medical Code(s): E04.2 - Nontoxic multinodular goiter (3) Hypertension: Status: Acute Qualifiers: Hypertension type: primary hypertension Qualified Code(s): I10 - Essential (primary) hypertension Category: Medical Code(s): I10 - Essential (primary) hypertension (4) Morbid obesity: Status: Acute Category: Medical Code(s): E66.01 - Morbid (severe) obesity due to excess calories Plan #Abdominal pain #Acute cholecystitis POCUS exam in ED notable for pericholecystic fluid with gallbladder wall thickening and sludge. LFTs and T bilirubin within normal limits. Continue Zosyn Antiemetics and parenteral pain medication as needed Will consult surgery in AM. Okay for sips and chips at this time, otherwise n.p.o. Continue maintenance IV fluids #Morbid obesity Plicate all aspects of care #Hypertension Continue home medications #Hypothyroidism Noted thyroid nodules with recent biopsy Continue home levothyroxine
--- NOTE | 2024-12-03 01:38 | PC.NURSE ---
at 0106 Report was called on this pt. At 0112 Pt arrived via w/c. vitals were taken and are stable. pt has changed and is wearing a hospital gown. will continue to follow the care plan. STEVAN HANDLEY RN
[2024-12-03] MEDS: 0.9 % SODIUM CHLORIDE 1000ML 1,000 ML 999 ML IV (02:00)
[2024-12-03 06:18] LABS: Hematocrit 36.2 % (37.0-47.0); Immature Granulocytes % 0.3 %; Mean Corpuscular HGB Conc 30.4 g/dL (31.8-35.4); Mean Corpuscular Hemoglobin 24.4 pg (27.0-31.2); Mean Corpuscular Volume 80.4 fl (81-99); Nucleated Red Blood Cells % 0 %; Platelet Count 203 K/mm3 (142-424); Red Blood Count 4.50 M/mm3 (4.20-5.40); Red Cell Distribution Width-SD 47.8 fL; White Blood Count 10.0 K/mm3 (4.8-10.8)
[2024-12-03 06:26] LABS: Hemoglobin 11.0 g/dL (12.2-16.2)
[2024-12-03 06:37] LABS: Chloride 109 mmol/L (98-107); Potassium 3.7 mmoL/L (3.5-5.1); Sodium 140 mmol/L (136-145)
[2024-12-03 06:40] LABS: Anion Gap 9.7 mEq/L (5-15); Blood Urea Nitrogen 14 mg/dl (7-17); Carbon Dioxide 25 mmol/L (22.0-30.0); Creatinine Clearance Estimated 86 mL/min (50-200); Creatinine,Serum 0.80 mg/dl (0.52-1.04); Estimated Glomerular Filt Rate 76 ml/min (>60); GFR (African American) 92 ML/MIN (>60)
[2024-12-03 06:41] LABS: Calcium 8.1 mg/dl (8.4-10.2); Glucose 92 mg/dl (74-100)
[2024-12-03] MEDS: MORPHINE 2MG/ML SYRINGE 2 MG IV ×2 (09:02→19:35)
--- NOTE | 2024-12-03 09:37 | HMH.PHAINT1 ---
Pharmacy Intervention Comments: MED LIST COMPARED TO FILL HISTORY
--- NOTE | 2024-12-03 12:48 | P.CONS_ITS ---
History of Present Illness *Admission Date: 12/03/24 *History of present illness: María Liriano is a 49-year-old female with a history of anxiety, diabetes type 2, hypothyroidism, hyperlipidemia, hypertension, chronic back pain, recurrent nephrolithiasis who presents with several weeks of right upper quadrant pain. The pain has been intermittent, but is at times severe. It has worsened over the past week, and was precipitated by a cheeseburger meal. She reports having a gallbladder ultrasound last week that reportedly showed sludge but no stones, and after that was advised to avoid red meat. She has been eating salads all week, but has noted the pain has been worsening. Admits to nausea and vomiting. Denies fevers. Came to the emergency room at [facility] last night with the same symptoms. Labs were normal, notably no leukocytosis, no bands, normal LFTs. CT scan was normal, but bedside ultrasound showed pericholecystic fluid, gallbladder wall thickening, and sludge. She was started on IV antibiotics and IV narcotics. This morning, she feels little better, but notes that as soon as the IV pain medicines were off, her right upper quadrant pain recurs. She has a history of umbilical hernia repair that she thinks was done here at [facility]. She cannot remember the name of her surgeon. I cannot locate an op note for this procedure in the system. She had Wegovy listed on her home med list, but notes that she has been off this medicine for several months due to her insurance not covering it. [facility] Disclaimer: The information contained in this section may have been updated after the patient was seen, as this information can be updated by other users. Medical History Multiple thyroid nodules CHF (congestive heart failure) Asthma HLD (hyperlipidemia) HTN (hypertension) Anxiety Hyperparathyroidism Elevated brain natriuretic peptide (BNP) level Anemia Surgical History Status post fine needle aspiration History of hernia repair Family History Other Family history of acute congestive heart failure Family history of diabetes mellitus type II Family history of hyperlipidemia Family history of hypertension Social History (Updated 12/03/24 @ 01:49 by Elena Maribell, RN) Smoking Status: Never smoker alcohol intake: never current occupational status: other Travel in the last 8 weeks?: None household members: other housing: house current occupational exposures/hazards: No Have you lived/traveled outside [place] in past 30 days?: No Contact w/someone who lives/traveled outside US past 30 days?: No Exposure to someone with infectious disease in past 14 days?: No Do you have a fever (greater than 100.4 F or 38 C)?: No Have you tested positive for COVID-19?: No Exposed to someone with COVID-19 in past 14 days?: No Do you have a sore throat?: No Do you have a cough?: No Do you have any weakness?: No Do you have any diarrhea?: No Are you experiencing any unusual bleeding?: No Do you have any muscle aches/pain?: No Do you have any abdominal pain?: No Are you experiencing loss of taste or smell?: No Meds Home Medications and Allergies Home Medications ?Medication ?Instructions ?Recorded ?Confirmed ?Type sertraline 100 mg tablet 200 mg PO DAILY Depression 1 05/27/17 12/03/24 History alprazolam 0.5 mg tablet 0.5 mg PO BIDP PRN Anxiety 0 09/14/19 12/03/24 History diclofenac sodium 50 mg 50 mg PO BID 06/16/23 History tablet,delayed release levothyroxine 75 mcg tablet 75 mcg PO DAILY 06/16/23 0 12/03/24 History metoprolol succinate 100 mg 100 mg PO DAILY Hypertensi on #90 09/06/24 12/03/24 Rx tablet,extended release 24 hr tabs albuterol sulfate 90 mcg/actuation 2 puff inhalation Q 4HP PRN SOA 11/20/24 12/03/24 History aerosol inhaler fluticasone propionate 50 1 spray intranasal DAILY 03/0612/03/24 History mcg/actuation nasal spray,suspension levocetirizine 5 mg tablet 5 mg PO DAILY #30 tabs 11/1012/03/24 Rx dapagliflozin propanediol 5 mg 5 mg PO DAILY 12/03/24 12/03/24 History tablet (Farxiga) rosuvastatin 5 mg tablet 5 mg PO HS 12/03/24 12/03/24 History New Prescriptions to Start Prescriptions: Allergies Allergy/AdvReac Type Severity Reaction Status Date / Time No Known Allergies Allergy Verified 11/20/24 11:06 Exam (Inpt) Vital signs and Labs for Last 24 Hours: Temp Pulse Resp BP Pulse Ox O2 Del Method 97.6 F 60 16 113/52 L 94 L Room Air 12/03/24 08:00 12/03/24 08:00 12/03/24 08:00 12/03/24 08:00 12/03/24 08:15 12/03/24 11:00 Laboratory Results - last 24 hr 12/02/24 21:20: Urine Color Yellow, Urine Appearance Clear, Urine pH 6.0, Ur Specific [place] 1.025, Urine Protein Negative, Urine Glucose (UA) 3+, Urine Ketones Trace, Urine Blood 2+ A, Urine Nitrate Negative, Urine Bilirubin Negative, Urine Urobilinogen 0.2, Ur Leukocyte Esterase Negative, Urine RBC 3-5, Urine WBC Occasional, Ur Squamous Epith Cells 5-10, Urine Bacteria 1+ 12/02/24 21:45: WBC 11.9 H, RBC 4.95, Hgb 12.3, Hct 39.1, MCV 79.0 L, MCH 24.8 L , MCHC 31.5 L, RDW 16.2, Plt Count 235, MPV 10.5 H, Neut % (Auto) 74.8, Lymph % (Auto) 17.2, [place] % (Auto) 5.6, Eos % (Auto) 1.8, Baso % (Auto) 0.3, Neut # (Auto) 8.9 H, Lymph # (Auto) 2.1, [place] # (Auto) 0.7, Eos # (Auto) 0.2, Baso # (Auto) 0.0, Sodium 139, Potassium 3.8, Chloride 105, Carbon Dioxide 28, Anion Gap 9.8, BUN 15, Creatinine 0.80, Estimated Creat Clear 162, Estimated GFR 76, Est GFR ( Amer) 92, Glucose 85, Calcium 8.7, Total Bilirubin 0.4, AST 32, ALT 20, Alkaline Phosphatase 82, Total Protein 7.2, Albumin 4.1, Globulin 3.1, Albumin/Globulin Ratio 1.3, Lipase 93, Serum HCG, Qual Negative 12/03/24 05:45: WBC 10.0, RBC 4.50, Hgb 11.0 L D, Hct 36.2 L, MCV 80.4 L, MCH 24.4 L, MCHC 30.4 L, RDW 16.5, Plt Count 203, MPV 10.4, Neut % (Auto) 67.2, Lymph % (Auto) 23.2, [place] % (Auto) 6.7, Eos % (Auto) 2.1, Baso % (Auto) 0.5, Neut # (Auto) 6.8, Lymph # (Auto) 2.3, [place] # (Auto) 0.7, Eos # (Auto) 0.2, Baso # (Auto) 0.1, Sodium 140, Potassium 3.7, Chloride 109 H, Carbon Dioxide 25, Anion Gap 9.7, BUN 14, Creatinine 0.80, Estimated Creat Clear 86, Estimated GFR 76, Est GFR ( Amer) 92, Glucose 92, Calcium 8.1 L I & O for Labs for Last 24 Hours: Intake & Output 11/30/24 12/01/24 12/02/24 12/03/24 23:59 23:59 23:59 23:59 Intake Total 1200 / 1200 Output Total 250 / 250 Balance 950 / 950 Weight 266 lb 320 lb 1 oz Constitutional: no acute distress Head: Present normocephalic and atraumatic Neck: Present normal inspection, full ROM and trachea midline Respiratory: Absent accessory muscle use Cardiac: Present Reg Rate and Rhythm GI: Present soft; Absent distention, tenderness or guarding Comments:: Incision at umbilicus, truncal obesity Skin: Present intact; Absent cyanosis Neuro: Present Cranial Nerve 2-12 Intact, alert, awake, oriented x 3, tone normal and moves all extremities Results Labs 12/03/24 05:45 12/03/24 05:45 Labs: Laboratory Results - last 24 hr 12/02/24 21:20: Urine Color Yellow, Urine Appearance Clear, Urine pH 6.0, Ur Specific [place] 1.025, Urine Protein Negative, Urine Glucose (UA) 3+, Urine Ketones Trace, Urine Blood 2+ A, Urine Nitrate Negative, Urine Bilirubin Negative, Urine Urobilinogen 0.2, Ur Leukocyte Esterase Negative, Urine RBC 3-5, Urine WBC Occasional, Ur Squamous Epith Cells 5-10, Urine Bacteria 1+ 12/02/24 21:45: WBC 11.9 H, RBC 4.95, Hgb 12.3, Hct 39.1, MCV 79.0 L, MCH 24.8 L , MCHC 31.5 L, RDW 16.2, Plt Count 235, MPV 10.5 H, Neut % (Auto) 74.8, Lymph % (Auto) 17.2, [place] % (Auto) 5.6, Eos % (Auto) 1.8, Baso % (Auto) 0.3, Neut # (Auto) 8.9 H, Lymph # (Auto) 2.1, [place] # (Auto) 0.7, Eos # (Auto) 0.2, Baso # (Auto) 0.0, Sodium 139, Potassium 3.8, Chloride 105, Carbon Dioxide 28, Anion Gap 9.8, BUN 15, Creatinine 0.80, Estimated Creat Clear 162, Estimated GFR 76, Est GFR ( Amer) 92, Glucose 85, Calcium 8.7, Total Bilirubin 0.4, AST 32, ALT 20, Alkaline Phosphatase 82, Total Protein 7.2, Albumin 4.1, Globulin 3.1, Albumin/Globulin Ratio 1.3, Lipase 93, Serum HCG, Qual Negative 12/03/24 05:45: WBC 10.0, RBC 4.50, Hgb 11.0 L D, Hct 36.2 L, MCV 80.4 L, MCH 24.4 L, MCHC 30.4 L, RDW 16.5, Plt Count 203, MPV 10.4, Neut % (Auto) 67.2, Lymph % (Auto) 23.2, [place] % (Auto) 6.7, Eos % (Auto) 2.1, Baso % (Auto) 0.5, Neut # (Auto) 6.8, Lymph # (Auto) 2.3, [place] # (Auto) 0.7, Eos # (Auto) 0.2, Baso # (Auto) 0.1, Sodium 140, Potassium 3.7, Chloride 109 H, Carbon Dioxide 25, Anion Gap 9.7, BUN 14, Creatinine 0.80, Estimated Creat Clear 86, Estimated GFR 76, Est GFR ( Amer) 92, Glucose 92, Calcium 8.[address] scan - abdomen: report reviewed and image reviewed US - abdomen: report reviewed Assessment and Plan *Assessment and plan (1) Acute cholecystitis: Status: Acute Category: Medical Code(s): K81.0 - Acute cholecystitis Plan: 49-year-old female with acute acalculous cholecystitis. She has had some improvement after IV antibiotics and GI rest, but still has pain today. She was offered early elective surgery this week, but feels that her pain is too significant and is afraid to go home and have ongoing pain, and so prefers to have surgery during this hospital stay. Will proceed to operating room for laparoscopic cholecystectomy. The risk, benefits, and alternatives to this procedure were explained to the patient and her , including but not limited to infection, bleeding, injury to surrounding structure, heart attack, stroke, , pulmonary complications, prolonged hospital stay, conversion to open, common bile duct injury, bile leak, postoperative diarrhea diarrhea. They understand and wish to proceed. Has already received antibiotics. Lovenox 40 mg on-call to the OR. After surgery, if she is doing well, she may discharge home after she has tolerated diet. Will need to follow-up with Dr. Duvall or Dr. Caicedo in 1 week.
--- NOTE | 2024-12-03 15:28 | P.PNANES_ITS ---
[facility] Disclaimer: The information contained in this section may have been updated after the patient was seen, as this information can be updated by other users. Medical History Multiple thyroid nodules CHF (congestive heart failure) Asthma HLD (hyperlipidemia) HTN (hypertension) Anxiety Hyperparathyroidism Elevated brain natriuretic peptide (BNP) level Anemia Surgical History Status post fine needle aspiration History of hernia repair Family History Other Family history of acute congestive heart failure Family history of diabetes mellitus type II Family history of hyperlipidemia Family history of hypertension Social History (Updated 12/03/24 @ 01:49 by Elena Reyna RN) Smoking Status: Never smoker alcohol intake: never substance use type: denies use current occupational status: other Travel in the last 8 weeks?: None household members: other housing: house current occupational exposures/hazards: No [facility] Anesthesia Checklist Patient Identification Patient Identification: Arm Band Structural Data Admitted From: Inpatient Planned Operative Procedure/s: Laparoscopic Cholecystectomy Consent for Planned Operative Procedure(s) Verified: Yes Verified Documents: Surgical Consent and History and Physical NPO Status Verified Time NPO: 00:00 Additional verifications Anesthesia Reactions: No Hx Blood Transfusions: No Blood Transfusion Reaction: No Airway Assessment Mallampati Score:: Class II C-Spine Mobility Assessed: Yes TMJ Mobility Assessed: Yes Dentition: Edentulous Neurological Assessment Level of Consciousness: Awake, Alert and Appropriate Anesthesia Plan Anesthesia Risk discussed: Yes Anesthesia Plan: Verified ASA Class: III Anesthesia Type: General
[2024-12-03] MEDS: BUPIVACAINE 0.5% W/EPI 1:200,000 30ML VIAL 30 ML IJ (15:36)
--- NOTE | 2024-12-03 16:47 | P.OP_ITS ---
Date of procedure: 12/03/24 Pre-op Diagnosis:: Acute acalculous cholecystitis Post-op Diagnosis:: Acute acalculous cholecystitis Procedure performed:: Laparoscopic cholecystectomy Surgeon:: Diane Leos MD CORPORATE ETHICS OFFICER:: Shakir Dyer Anesthesia: GETKannan Estimated blood loss (mL): 75 Clinical Note:: Family follows a 49-year-old female who presented with approximately one 1 month of intermittent right upper quadrant pain that was postprandial. She was known to have gallbladder sludge on a gallbladder ultrasound performed earlier this month, but her pain worsened this week and sent her to the emergency room. Bedside ultrasound showed gallbladder wall thickening, pericholecystic fluid, redemonstrated the sludge, was consistent with acute acalculous cholecystitis. Due to the intensity of her pain, she has brought to the operating room urgently for laparoscopic cholecystectomy. Please see consult for details. Operative findings:: Acute and chronically inflamed intrahepatic gallbladder with thick, friable, inflammatory rind. Technically challenging case due to large amount of visceral fat. Operative note:: After informed consent was taken, the patient was brought to the OR and laid supine position. General anesthesia was induced. She was positioned, and then prepped and draped sterilely. The abdomen was entered in the right upper quadrant with a 5 mm Optiview trocar under direct visualization. The abdomen was insufflated to 15 mmHg and diagnostic laparoscopy was performed. There was no injury from the entrance technique. There were some omental adhesions to previous umbilical hernia repair. An additional 5 mm port was placed in the far right upper quadrant, and 11 mm ports were placed just left of the initial port, and at the subxiphoid area. The gallbladder was observed, and was noted to have a very thick inflammatory rind. Attempts to grasp it were difficult, and so a small cholecystotomy was made in the gallbladder and clear yellow bile was suctioned. The gallbladder was now more distensible, and could be grasped and retracted over the liver. Neck of the gallbladder was grasped retracted laterally. Visualization was quite difficult, as the gallbladder was in an intrahepatic location, and also there was abundant visceral fat obscuring view despite being in a reverse Trendelenburg with left side down bed position. Dissection was performed in the cystic triangle until the cystic duct and cystic artery were skeletonized. The cystic artery and cystic duct were visualized with the liver clearly seen behind them, and thus the critical view of safety was obtained. The cystic duct and cystic artery were both doubly clipped at their proximal aspect, and singly clipped distally. Both were divided with cold scissors. The gallbladder was dissected off the liver bed with cautery. This dissection was also friable due to acute inflammation. Once the gallbladder was free of the liver bed, it was placed in an Endo Catch bag and removed through the left-sided 11 mm port. The fascia did require some widening to remove the gallbladder. Liver bed was examined, and there was still some oozing. This was controlled with cautery, and also some Surgiknit was placed for additional hemostasis. The right upper quadrant was copiously irrigated and suctioned, until the effluent ran clear. Hemostasis was achieved. All ports were removed and replaced under direct visualization, and there was no bleeding. The gallbladder removal port site fascia was closed with an 0 Vicryl transfascial suture. All ports and instruments were removed and the abdomen was desufflated. Skin incisions were closed with 3-0 Monocryl. Skin glue was placed. A total of 30 cc of half percent Marcaine with epinephrine was instilled at incision sites. The patient was awakened taken recovery in good condition having tolerated the procedure well. Condition: stable Disposition: PACU Complications:: none
--- NOTE | 2024-12-03 16:59 | EXP.ANES.I ---
[facility] Anesthesia Record Part I Anesthesia Record I Intake, IV Amount: 800 Hydration: Adequate Estimated blood loss (mL): 75 Urine output (mL): 0 Blood Products used (#): none Blood Pressure: 104/74 SaO2: 94 Pulse Rate: 69 Airway Patency: Patent Respiratory Rate: 16 Temperature: 97.2 F Patient is:: Drowsy, Nasal O2 and Stable Stable to PACU at:: 16:55
[2024-12-03] MEDS: ONDANSETRON 4MG/2ML VIAL 4 MG IV ×2 (17:20→19:47)
--- NOTE | 2024-12-03 18:24 | PC.NURSE ---
pt is A&Ox4. pt has had abdominal pain in the right upper quadrant. she had a CT of the abdomen which showed sludge in the gallbladder. She had a consult with general surgery and they performed a cholecystectomy this afternoon. she got back to the floor at 17:45 and was in pain and was nauseous. the pacu nurse gave her zofran and fentanyl before bringing her up. vital signs are stable. home meds were restarted while she was gone but she feels too nauseous to take them at this time. She has four lap sites closed with dermabond. she has no other needs at this time. call light is within reach.
--- NOTE | 2024-12-03 18:48 | PC.NURSE ---
pts home meds were restarted after pharmacy had left for the day so i pulled them from [facility] 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 verified with kika johnson.
[2024-12-03] MEDS: HYDROMORPHONE 2MG/ML SYRINGE 1 MG IV ×2 (20:03→22:58)
[2024-12-03] MEDS: PROMETHAZINE HCL 25MG/ML 1ML VIAL 12.5 MG IV (20:04)
--- NOTE | 2024-12-03 20:34 | PC.NURSE ---
1899 report received from TIERNEY Keller. Took Vitals per post op protocol. Pt is C/O pain Gave 2 mg of Morphine at 1935 and pt c/o nausea gave pt Zophram 4mg at 194. Pt still c/o Pain of a 10 on a Scale of 0 -10. Called Lila Perez [employer] she ordered Dilaudid 1mg and phenergan 12.5 IV in Ns of 25ml. one given at 2002 and 2003 respectively. pt reported pain had came down to a 7. 2040 assessing PT again. Pt states her is a 3 on a scale of 0-10. Pt is resting with 2l of NC o2 on at bedside. STEVAN HANDLEY RN
[2024-12-04 00:35] VITALS: BP 135/75; PULSE 68; RESP 16; TEMP 36.4; O2SAT 95
[2024-12-04] MEDS: PIPERACILLIN/TAZO 4.5 GM in 0.9 % SODIUM CHLORIDE 100 ML IV ×3 (01:48→11:33)
[2024-12-04] MEDS: HYDROMORPHONE 2MG/ML SYRINGE 0.5 MG IM ×2 (01:49→07:02)
[2024-12-04] MEDS: 0.9 % SODIUM CHLORIDE 1000ML 1,000 ML 100 ML IV ×2 (01:51→12:08)
[2024-12-04 04:00] VITALS: BP 107/62; PULSE 64; RESP 16; TEMP 36.5; O2SAT 98; BMI 48.6
[2024-12-04 06:23] LABS: Hematocrit 35.9 % (37.0-47.0); Hemoglobin 10.9 g/dL (12.2-16.2); Immature Granulocytes % 0.4 %; Mean Corpuscular HGB Conc 30.4 g/dL (31.8-35.4); Mean Corpuscular Hemoglobin 24.6 pg (27.0-31.2); Mean Corpuscular Volume 81.0 fl (81-99); Nucleated Red Blood Cells % 0 %; Platelet Count 202 K/mm3 (142-424); Red Blood Count 4.43 M/mm3 (4.20-5.40); Red Cell Distribution Width-SD 47.8 fL; White Blood Count 10.2 K/mm3 (4.8-10.8)
[2024-12-04 06:33] LABS: Chloride 109 mmol/L (98-107); Sodium 138 mmol/L (136-145)
[2024-12-04 06:34] LABS: Potassium 4.2 mmoL/L (3.5-5.1)
[2024-12-04 06:36] LABS: Blood Urea Nitrogen 12 mg/dl (7-17); Creatinine Clearance Estimated 86 mL/min (50-200); Creatinine,Serum 0.80 mg/dl (0.52-1.04); Estimated Glomerular Filt Rate 76 ml/min (>60); GFR (African American) 92 ML/MIN (>60)
[2024-12-04 06:37] LABS: Anion Gap 9.2 mEq/L (5-15); Calcium 7.5 mg/dl (8.4-10.2); Carbon Dioxide 24 mmol/L (22.0-30.0); Glucose 123 mg/dl (74-100)
--- NOTE | 2024-12-04 07:31 | P.PNANES_ITS ---
[facility] Anesthesia Record Part II Anesthesia Record Part II Discharge Time: 17:25 Destination: Surgical Day Care (OP Surgery) PACU nurse assessment reviewed?: Yes Patient Condition:: Good Anesthesia Complications:: None Swallowing reflex intact?: Yes Airway Patency: Patent Cyanosis?: No Blood Pressure: 135/76 SaO2: 95 Respiratory Rate: 16 Pulse Rate: 71 Temperature: 97.2 F Mental Status: Alert & Oriented Pain level:: 3 Nausea and/or vomitting:: None Intake, IV Amount: 0 Hydration: Adequate
[2024-12-04 07:32] VITALS: BP 135/76; PULSE 71; RESP 16; TEMP 36.2; O2SAT 95
[2024-12-04 08:00] VITALS: BP 120/57; PULSE 66; RESP 19; TEMP 36.6; O2SAT 98
[2024-12-04] MEDS: FLUTICASONE PROP 50MCG NASAL SPRAY 16GM 1 SPRAY NS (08:51)
[2024-12-04] MEDS: METOPROLOL SUCCINATE XL 100MG TABLET 100 MG PO (08:52)
[2024-12-04] MEDS: LORATADINE 10MG TABLET 10 MG PO (08:52)
[2024-12-04] MEDS: DAPAGLIFLOZIN PROPANEDIOL 10 MG TABLET 5 MG PO (08:52)
[2024-12-04] MEDS: SERTRALINE 100MG TABLET 200 MG PO (08:52)
--- NOTE | 2024-12-04 10:49 | XR_ITS ---
FINAL REPORT CLINICAL HISTORY: abdominal pain COMPARISON: None FINDINGS: A single supine view the abdomen was obtained. The bowel gas pattern is nonspecific but nonobstructive. There are no pathologic calcifications. Osseous structures are within normal limits. IMPRESSION: Nonspecific but nonobstructive bowel gas pattern. Reviewed, Interpreted and Dictated by Casi Craig MD Transcribed by Rdaha Woody Authenticated and [facility]
[2024-12-04 11:11] LABS: Lipase 33 U/L (23-300)
[2024-12-04] MEDS: KETOROLAC 30MG/ML VIAL 30 MG IV (11:33)
--- NOTE | 2024-12-04 11:58 | P.DS_ITS ---
General Admission date:: 12/03/24 HPI HPI HPI: María Liriano is a 49-year-old female with a history of anxiety, diabetes type 2, hypothyroidism, hyperlipidemia, hypertension, chronic back pain, recurrent nephrolithiasis who presents with several weeks of right upper quadrant pain. The pain has been intermittent, but is at times severe. It has worsened over the past week, and was precipitated by a cheeseburger meal. She reports having a gallbladder ultrasound last week that reportedly showed sludge but no stones, and after that was advised to avoid red meat. She has been eating salads all week, but has noted the pain has been worsening. Admits to nausea and vomiting. Denies fevers. Came to the emergency room at [facility] last night with the same symptoms. Labs were normal, notably no leukocytosis, no bands, normal LFTs. CT scan was normal, but bedside ultrasound showed pericholecystic fluid, gallbladder wall thickening, and sludge. She was started on IV antibiotics and IV narcotics. This morning, she feels little better, but notes that as soon as the IV pain medicines were off, her right upper quadrant pain recurs. She has a history of umbilical hernia repair that she thinks was done here at [facility]. She cannot remember the name of her surgeon. I cannot locate an op note for this procedure in the system. She had Wegovy listed on her home med list, but notes that she has been off this medicine for several months due to her insurance not covering it. Hospital Course Hospital Course Hospital Course: María Liriano is a 49-year-old female who presented with abdominal pain and was admitted for acute cholecystitis. #Acute cholecystitis ? General Surgery consulted, s/p laparoscopic cholecystectomy on 12/03/2024. Patient tolerated procedure well. ? Tolerating p.o. intakes and ambulating without issues. ? Discharged with Percocet, simethicone. Will follow-up with general surgery within 2 weeks. #Hypothyroidism ? Continue home levothyroxine 75 mcg. #Hypertension ? Continue home medications. Exam Data for Last 24 hours Vital signs and Labs for Last 24 Hours: Temp Pulse Resp BP Pulse Ox O2 Del Method O2 Flow Rate 97.8 F 66 19 120/57 L 98 Room Air 2 12/04/24 08:00 12/04/24 08:00 12/04/24 08:00 12/04/24 08:00 12/04/24 08:00 12/04/24 09:00 12/04/24 04:00 Laboratory Results - last 24 hr 12/04/24 05:56: WBC 10.2, RBC 4.43, Hgb 10.9 L, Hct 35.9 L, MCV 81.0, MCH 24.6 L , MCHC 30.4 L, RDW 16.2, Plt Count 202, MPV 9.9, Neut % (Auto) 89.0 H, Lymph % (Auto) 6.8 L, [place] % (Auto) 3.6, Eos % (Auto) 0.0 L, Baso % (Auto) 0.2, Neut # (Auto) 9.1 H, Lymph # (Auto) 0.7, [place] # (Auto) 0.4, Eos # (Auto) 0.0, Baso # (Auto) 0.0, Sodium 138, Potassium 4.2, Chloride 109 H, Carbon Dioxide 24, Anion Gap 9.2, BUN 12, Creatinine 0.80, Estimated Creat Clear 86, Estimated GFR 76, Est GFR ( Amer) 92, Glucose 123 H, Calcium 7.5 L, Lipase 33 I & O for Last 24 hours: Intake & Output 12/01/24 12/02/24 12/03/24 12/04/24 23:59 23:59 23:59 23:59 Intake Total 2600 / 2840 2580 / 2580 Output Total 900 / 1275 375 / 375 Balance 1700 / 1565 2205 / 2205 Weight 120.656 kg 145.178 kg 145.66 kg Microbiology Reports for the Last 24 Hours: Microbiology 12/02/24 21:20 Urine,Clean Catch Urine Culture - Final Multiple organisms, suggests contamination. 12/03/24 00:43 Blood Blood Culture - Preliminary NO GROWTH AFTER 24 HOURS 12/03/24 00:40 Blood Blood Culture - Preliminary NO GROWTH AFTER 24 HOURS Constitutional Constitutional: no acute distress and obese *Routine HEENT Exam Head: Present normocephalic Eye: Present EOMI and PERRL ENT: Present mucous membranes moist *Routine Neck Exam Neck: Present supple; Absent lymphadenopathy *Routine Respiratory Exam Respiratory: Present CTA bilaterally *Routine Cardiovascular Exam Cardiovascular: Present RRR *Routine Abdominal Exam Abdominal: Present soft and normoactive bowel sounds; Absent tenderness *Routine Extremities Exam Extremities: Absent cyanosis, clubbing or edema *Routine Skin Exam Skin: Present warm; Absent rash *Routine Neurological Exam Neurological: Present alert and oriented X3 Results Data Completed and Pending Labs on day of discharge: Labs from last 24 hours 12/04/24 05:56 WBC 10.2 RBC 4.43 Hgb 10.9 L Hct 35.9 L MCV 81.0 MCH 24.6 L MCHC 30.4 L RDW 16.2 Plt Count 202 MPV 9.9 Neut % (Auto) 89.0 H Lymph % (Auto) 6.8 L [place] % (Auto) 3.6 Eos % (Auto) 0.0 L Baso % (Auto) 0.2 Neut # (Auto) 9.1 H Lymph # (Auto) 0.7 [place] # (Auto) 0.4 Eos # (Auto) 0.0 Baso # (Auto) 0.0 Sodium 138 Potassium 4.2 Chloride 109 H Carbon Dioxide 24 Anion Gap 9.2 BUN 12 Creatinine 0.80 Estimated Creat Clear 86 Estimated GFR 76 Est GFR ( Amer) 92 Glucose 123 H Calcium 7.5 L Lipase 33 Preliminary micro results at discharge 12/03/24 00:43 Blood Culture - Preliminary Blood NO GROWTH AFTER 24 HOURS 12/03/24 00:40 Blood Culture - Preliminary Blood NO GROWTH AFTER 24 HOURS DS: Diagnosis Discharge Diagnosis (1) Acute cholecystitis: Status: Acute Code(s): K81.0 - Acute cholecystitis Meds Home Medications and Allergies Home Medications ?Medication ?Instructions ?Recorded ?Confirmed ?Type sertraline 100 mg tablet 200 mg PO DAILY Depression 1 05/27/17 12/03/24 History alprazolam 0.5 mg tablet 0.5 mg PO BIDP PRN Anxiety 0 09/14/19 12/03/24 History diclofenac sodium 50 mg 50 mg PO BID 06/16/23 History tablet,delayed release levothyroxine 75 mcg tablet 75 mcg PO DAILY 06/16/23 0 12/03/24 History metoprolol succinate 100 mg 100 mg PO DAILY Hypertensi on #90 09/06/24 12/03/24 Rx tablet,extended release 24 hr tabs albuterol sulfate 90 mcg/actuation 2 puff inhalation Q 4HP PRN SOA 11/20/24 12/03/24 History aerosol inhaler fluticasone propionate 50 1 spray intranasal DAILY 03/0612/03/24 History mcg/actuation nasal spray,suspension levocetirizine 5 mg tablet 5 mg PO DAILY #30 tabs 11/1012/03/24 Rx dapagliflozin propanediol 5 mg 5 mg PO DAILY 12/03/24 12/03/24 History tablet (Farxiga) rosuvastatin 5 mg tablet 5 mg PO HS 12/03/24 12/03/24 History oxycodone-acetaminophen 5 mg-325 1 tab PO Q6HP PRN Mod erate Pain 12/04/24 Rx mg tablet (4-6) 3 days #12 tabs simethicone 180 mg capsule 180 mg PO BID PRN bloating #10 caps 12/04/24 Rx New Prescriptions to Start Prescriptions: oxycodone-acetaminophen Maikel Almazan simethicone Maikel Almazan Allergies Allergy/AdvReac Type Severity Reaction Status Date / Time No Known Allergies Allergy Verified 11/20/24 11:06 Discharge Plan Disposition Patient Disposition: Home, Self-Care Condition: Fair Follow up Plan Follow up with: Keo Kay MD [Staff Physician, General Surgery] - 12/13/24 9:45 am Prescriptions/Medication Reconciliation: New oxycodone-acetaminophen 5-325 mg Tablet 1 tab PO Q6HP PRN (Reason: Moderate Pain (4-6)) 3 Days Qty: 12 0RF simethicone 180 mg capsule 180 mg PO BID PRN (Reason: bloating) Qty: 10 0RF Continued levothyroxine 75 mcg tablet 75 mcg PO DAILY Patient Comments: TAKE 1 TABLET BY MOUTH DAILY diclofenac sodium 50 mg tablet,delayed release (DR/EC) 50 mg PO BID Patient Comments: TAKE 1 TABLET BY MOUTH TWICE DAILY WITH FOOD NEEDED FOR PAIN metoprolol succinate 100 mg tablet extended release 24 hr 100 mg PO DAILY Qty: 90 3RF albuterol sulfate 90 mcg/actuation HFA aerosol inhaler 2 puff inhalation Q4HP PRN (Reason: SOA) Patient Comments: INHALE 2 PUFFS INTO THE LUNGS EVERY 4 HOURS NEEDED FOR WHEEZING fluticasone propionate 50 mcg/actuation spray,suspension 1 spray intranasal DAILY Patient Comments: SHAKE LIQUID AND USE 1 SPRAY IN EACH NOSTRIL DAILY levocetirizine 5 mg tablet 5 mg PO DAILY Qty: 30 3RF alprazolam 0.5 MG tablet 0.5 mg PO BIDP PRN (Reason: Anxiety) sertraline 100 MG tablet 200 mg PO DAILY dapagliflozin propanediol [Farxiga] 5 mg tablet 5 mg PO DAILY rosuvastatin 5 mg tablet 5 mg PO HS Problem Reconciliation Problems Reviewed?: Yes Patient Discharge Instructions Patient Instructions: DI for Surgical Site Infection, DI for Cholecystitis, DI for Laparoscopic Cholecystectomy Print Language: Amharic Providers Primary Care Provider: Mónica Adler Admit Provider: Barbara Doll Attending Provider: Barbara Doll
[2024-12-04 12:00] VITALS: BP 115/55; PULSE 62; RESP 17; TEMP 36.3; O2SAT 97
[2024-12-04] MEDS: HYDROMORPHONE 2MG/ML SYRINGE 0.5 MG IV (12:13)
--- NOTE | 2024-12-05 10:35 | SW/DCPLANNER ---
Spoke with patient on the phone. Patient stated that she is feeling okay. Patient stated that she is aware of her upcoming appointments. Patient stated that she was able to get her new medicine picked up. Patient stated that she has no concerns or questions at this time. Kym Ortiz
== END 2024-12-04 15:45 | disposition home or self-care (01) ==
LOC: ER 12-03 00:36 → 2ND 12-03 00:53
PROVIDERS: Nurse Practitioner Acute Care; Student in an Organized Health Care Education/Training Program; Surgery; Admitting Provider Internal Medicine; Emergency Provider Student in an Organized Health Care Education/Training Program; PCP Nurse Practitioner; Visit Provider Internal Medicine
PROC: 0FT44ZZ Resection of Gallbladder, Percutaneous Endoscopic Approach (ICD-10-PCS; CPT 47563; principal; 2024-12-03 15:00)
DX: K80.10 Calculus of gallbladder with chronic cholecystitis without obstruction (principal); E03.9 Hypothyroidism, unspecified; E04.2 Nontoxic multinodular goiter; E66.01 Morbid (severe) obesity due to excess calories; I11.0 Hypertensive heart disease with heart failure; J45.909 Unspecified asthma, uncomplicated; E11.9 Type 2 diabetes mellitus without complications; F41.9 Anxiety disorder, unspecified; I50.9 Heart failure, unspecified; E78.5 Hyperlipidemia, unspecified; Z68.42 Body mass index [BMI] 45.0-49.9, adult; Z79.890 Hormone replacement therapy; Z79.899 Other long term (current) drug therapy; Z79.51 Long term (current) use of inhaled steroids
CPT/HCPCS: 47562; 36415; 74018; 74177; 80048; 80053; 81001; 83690; 84703; 85025; 87040; 87086; 88304; 96361; 96365; 96372; 96375; 96376; 99285; G0378; J1100; J1171; J1596; J1650; J1885; J2003; J2250; J2270; J2405; J2543; J2550; J2704; J3010; J7030; Q9967

== ENCOUNTER 2024-12-05 22:31 | Observation (INO) | payer MEDICARE, OTHER, SELFPAY ==
--- OUTSIDE RECORDS SUMMARY | 2024-11-10 14:45 | XMS_ITS | Encounter Summary ---
Author Organization [place] [address] Care Team Providers Care Multimedia Technician Name Role Phone Nayely, Mónica FILI Primary Care Provider [phone] Reason for Visit * Reason Comments Follow-up Needs blood work Medication Refill Encounter Details Date Type Department Care Team (Late st Contact Info) Description 11/10/2024 2:45 PM EDT Office Visit [facility] [place] [address] [place] [id number] Mariusz Junior MD [address] [place] [address] Iron deficiency anemia secondary to inadequate dietary iron intake (Primary Dx); Pre-diabetes; Essential hypertension; Generalized anxiety disorder; Seasonal allergic rhinitis, unspecified trigger; Chronic fatigue; Hyperparathyroidism, primary Social History Tobacco Use Types Packs/Day Years Used Date Smoking Tobacco: Never Smokeless Tobacco: Never Alcohol Use Standard Drinks/Week Comments Never 0 (1 standard drink = 0.6 oz pur e alcohol) PHQ-2 Answer Date Recorded PHQ-2 Total Score 4 11/10/2024 Sexually Active Control Partners Comments Yes Male Comments No Sex and Gender Information Value Date Recorded Sex Assigned at Not on file Legal Sex Female 2:01 AM EDT Gender Identity Not on file Sexual Orientation Not on file 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 Not on file Not on file Not on file documented as of this encounter Last Filed Vital Signs Vital Sign Reading Time Taken Comments Blood Pressure 128/74 11/10/2024 2:50 PM EDT Pulse 67 11/10/2024 2:50 PM EDT Temperature 36.8 C (98.2 F) 11/10/2024 2:50 PM EDT Respiratory Rate 18 11/10/2024 2:50 PM EDT Oxygen Saturation 96% 11/10/2024 2:50 PM EDT Inhaled Oxygen Concentration - - Weight 140.6 kg (310 lb) 11/10/2024 2:50 PM EDT Height 172.7 cm (5' 8 ) 11/10/2024 2:50 PM EDT Body Mass Index 47.14 11/10/2024 2:50 PM EDT documented in this encounter Functional Status * Is the person deaf or does he/she have serious difficulty hearing? Answer Date of Assessment Author No 08/18/2023 9:51 AM Kannan Gimenez CCMA * Is the person blind or [...] 08/18/2023 9:51 AM Kannan Gimenez CCMA * Question Answer Date of Assessment Author Little interest or pleasure in doing things 3 11/10/2024 2:50 PM EDT Giovanna Kan RMA Feeling down, depressed, or hopeless 1 11/10/2024 2:50 PM EDT Giovanna Kan RMA PHQ-2 Total Score 4 11/10/2024 2:50 PM EDT Giovanna Kan RMA Trouble falling or staying asleep, or sleeping too much 1 11/10/2024 2:50 PM Giovanna Arita RMA Feeling tired or having kd le energy 3 11/10/2024 2:50 PM EDGiovanna Benz RMA Poor appetite or overeating 1 11/10/2024 2: 50 PM EDT Giovanna Kan RMA Feeling bad about yourself - or that you are a failure or have let yourself or your family down 1 11/10/2024 2:50 PM EDGiovanna Benz RMA Trouble concentrating on things, such as reading the newspaper or watching television 1 11/10/2024 2:50 PM Giovanna Arita RMA Moving or speaking so slowly that other people could have noticed. Or the opposite - being so fidgety or restless that you have been moving around a lot more than usual 0 11/10/2024 2:50 PM Giovanna Arita RMA Thoughts that you would be better off , or of hurting yourself in some way 0 11/10/2024 2:50 PM Giovanna Arita RMA PHQ-9 Total Score 11 11/10/2024 2:50 PM Giovanna Arita RMA * PHQ-2 Total Score Answer Date of Assessment Author 4 11/10/2024 2:50 PM Emigdio Arita RMA documented as of this encounter Mental Status * Because of a physical, mental or emotional condition, does this person have serious difficulty concentrating, remembering or making decisions? Answer Entry Date Author No 08/18/2023 9:51 AM Kannan Gimenez CCMA documented in this encounter Ordered Prescriptions Prescription Sig Dispense Quantity Refills Last Filled Start Date End Date fluticasone propionate (FLONASE) 50 mcg/actuation Nasl Sparks, SuspensionIndicatio ns:Seasonal allergic rhinitis, unspecified trigger 1 Sparks by Nasal route daily. 1 Each 2 11/10/2024 ALPRAZolam (XANAX) 0.5 mg Oral TabletIndications:G eneralized anxiety disorder Take 1 Tablet by mouth 2 times daily as needed for Anxiety. 60 Tablet 1 11/10/2024 documented in this encounter Progress Notes * Mariusz Junior MD - 11/10/2024 2:45 PM EDTAssociated Problem(s): Iron deficiency anemia secondary to inadequate dietary iron intake Orders: IRON+TIBC; Future CBC WITH DIFF; Future Will recheck iron and CBC and restart IV iron if needed. * Mariusz Junior MD - 11/10/2024 2:45 PM EDTAssociated Problem(s): Pre-diabetes Orders: HEMOGLOBIN A1C; Future Recheck A1c and trend for prediabetes will adjust medications based on results * Mariusz Junior MD - 11/10/2024 2:45 PM EDTAssociated Problem(s): Essential hypertension Hypertension at goal today continue current regimen follow-up BMP to monitor electrolytes and renalfunction Orders: BASIC METABOLIC PANEL; Future * Mariusz Junior MD - 11/10/2024 2:45 PM EDTAssociated Problem(s): Generalized anxiety disorder Gary reviewed at today's visit her last refill was on 09/11/2024 for 30 days supply per Gary report. Anxiety well-controlled with Xanax at this time. Continue with current regimen. No side effects reported today. Orders: ALPRAZolam (XANAX) 0.5 mg Oral Tablet; Take 1 Tablet by mouth 2 times daily as needed for Anxiety. * Mariusz Junior MD - 11/10/2024 2:45 PM EDTAssociated Problem(s): Chronic fatigue Orders: TSH REFLEX TO FT4; Future VITAMIN B12/ FOLIC ACID; Future Will evaluate chronic fatigue further with labs per above. Monitor anemia per above as well. Recently was diagnosed with obstructive sleep apnea but is not yet got her CPAP supplies. Chronic fatigue may be related to untreated sleep apnea currently. Advised to start CPAP as soon as she receives hersupplies * Mariusz Junior MD - 11/10/2024 2:45 PM EDT Assessment & Plan Iron deficiency anemia secondary to inadequate dietary iron intake Orders: IRON+TIBC; Future CBC WITH DIFF; Future Will recheck iron and CBC and restart IV iron if needed. Pre-diabetes Orders: HEMOGLOBIN A1C; Future Recheck A1c and trend for prediabetes will adjust medications based on results Essential hypertension Hypertension at goal today continue current regimen follow-up BMP to monitor electrolytes and renalfunction Orders: BASIC METABOLIC PANEL; Future Generalized anxiety disorder Gary reviewed at today's visit her last refill was on 09/11/2024 for 30 days supply per Gary report. Anxiety well-controlled with Xanax at this time. Continue with current regimen. No side effects reported today. Orders: ALPRAZolam (XANAX) 0.5 mg Oral Tablet; Take 1 Tablet by mouth 2 times daily as needed for Anxiety. Seasonal allergic rhinitis, unspecified trigger Orders: fluticasone propionate (FLONASE) 50 mcg/actuation Nasl Sparks, Suspension; 1 Sparks by Nasal route daily. Chronic fatigue Orders: TSH REFLEX TO FT4; Future VITAMIN B12/ FOLIC ACID; Future Will evaluate chronic fatigue further with labs per above. Monitor anemia per above as well. Recently was diagnosed with obstructive sleep apnea but is not yet got her CPAP supplies. Chronic fatigue may be related to untreated sleep apnea currently. Advised to start CPAP as soon as she receives hersupplies Progress Note: Vitals: 11/10/24 1450 BP: 128/74 Pulse: 67 Resp: 18 Temp: 98.2 ??F (36.8 ??C) TempSrc: Tympanic SpO2: 96% Weight: (!) 310 lb (140.6 kg) Height: 5' 8 (1.727 m) Body mass index is 47.14 kg/m??. SUBJECTIVE: Chief Complaint Patient presents with Follow-up Needs blood work Medication Refill HPI: She has a medication refill for her Xanax for anxiety. Her anxiety is well- controlled with Xanax and she typically takes this twice daily. She does have occasional breakthrough anxiety but feels likethis is manageable overall. No issues with drowsiness confusion or falls associated with the medication. No issues with sedation reported. She also has a history of hypertension. Hypertension is well-controlled with current medication. Has a history of prediabetes which is well-controlled with current medications but due for follow-up A1c today. She is also having issues with chronic fatigue. Shefeels very fatigued and rundown. She was recently diagnosed with sleep apnea but has not yet gottenher CPAP machine and is not currently using this. She does have a history of iron deficiency anemiarequiring IV iron treatments a few months ago. She is due to have labs to recheck her iron levels as well Review of Systems Constitutional: Positive for fatigue. Negative for activity change, chills, diaphoresis, fever and unexpected weight change. HENT: Negative for trouble swallowing and voice change. Eyes: Negative for visual disturbance. Respiratory: Negative for cough and shortness of breath. Cardiovascular: Negative for chest pain and palpitations. Gastrointestinal: Negative for diarrhea, nausea and vomiting. Genitourinary: Negative for pelvic pain and urgency. Musculoskeletal: Negative for gait problem and myalgias. Skin: Negative for rash and wound. Neurological: Negative for dizziness and headaches. Psychiatric/Behavioral: Negative for decreased concentration, dysphoric mood, sleep disturbance andsuicidal ideas. The patient is not nervous/anxious. OBJECTIVE: Physical Exam Vitals reviewed. Constitutional: General: She is not in acute distress. Appearance: She is well-developed. She is obese. She is not diaphoretic. HENT: Head: Normocephalic and atraumatic. Right Ear: Tympanic membrane normal. There is no impacted cerumen. Left Ear: Tympanic membrane normal. There is no impacted cerumen. Nose: Congestion present. Eyes: Pupils: Pupils are equal, round, and reactive to light. Cardiovascular: Rate and Rhythm: Normal rate and regular rhythm. Pulmonary: Effort: Pulmonary effort is normal. Breath sounds: Normal breath sounds. No wheezing. Musculoskeletal: Right lower leg: No edema. Skin: Coloration: Skin is not pale. Findings: No rash. Neurological: Mental Status: She is alert and oriented to person, place, and time. Psychiatric: Behavior: Behavior normal. Thought Content: Thought content normal. Judgment: Judgment normal. * Jimi Nelson MA - 11/10/2024 2:45 PM EDT Venipuncture in a right hand vein with 23 gauge needle, length 1 1/2 inch. documented in this encounter Plan of Treatment Not on file documented as of this encounter Goals Goal Patient Goal Type Associated Problems Recent Progress Patient-Stated? Author Blood Pressure < 140/90 Blood Pressure 128/74(2024 2:50 PM EDT) No Mohini Mendiola N, RMA Maintain a healthy diet, exercise regularly and maintain an ideal body weight General No Mohini Mendiola N, RMA documented as of this encounter Procedures Procedure Name Priority Date/Time Associated Diagnosis Comments IRON+TIBC Routine 11/10/2024 3:17 PM EDT Iron deficiency anemia secondary to inadequate dietary iron intake VITAMIN B12/ FOLIC ACID Routine 11/10/2024 3:17 PM EDT Chronic fatigue TSH REFLEX TO FT4 Routine 11/10/2024 3:1 7 PM EDT Chronic fatigue CBC WITH DIFF Routine 11/10/2024 3:17 PM EDT Iron deficiency anemia secondary to inadequate dietary iron intake PARATHYROID HORMONE INTACT Routine 11/10/2024 3:17 PM EDT Hyperparathyroidism, primary HEMOGLOBIN A1C Routine 11/10/2024 3:17 PM EDT Pre-diabetes BASIC METABOLIC PANEL Routine 11/10/2024 3:17 PM EDT Essential hypertension documented in this encounter Results * (ABNORMAL) PARATHYROID HORMONE INTACT (11/10/2024 3:17 PM EDT) PTH Intact 79.30(H) 15.00 - 65.00 pg/mL 11/10/2024 10:07 PM EDT [facility] Blood VENOUS BLOOD / Unknown Venipuncture / Unknown 11/10/2024 3:17 PM EDT 11/10/2024 3:17 PM EDT Narrative [facility] - 11/10/2024 10:07 PM EDT Intact PTH Calcium Interpretation ------- 15 - 65 8.6 - 10.2 Normal > 65 > 10.2 Primary Hyperparathyroidism < 20 > 10.2 Non-Parathyroid hypercalcemia < 15 < 8.6 Hypoparathyroidism Consider the above as guidelines only. PTH results should be interpreted in conjunction with the total or ionized calcium level. The finding of a persistently high-normal calcium accompanied by a high-normal PTH (or a low-normal calcium accompanied by a low-normal PTH) warrants further investigation. Although the PTH may itself be within normal limits, it may be inappropriately high (or low) relative to the circulating calcium level. Ingestion of inez doses of biotin (>5 mg/day) taken within 8 hours of drawing blood sample can interfere with this immunoassay test. Mónica Adler APRN CHEMISTRY ORDERABLES Final Result [facility] [address] , [place] [address] * VITAMIN B12/ FOLIC ACID (11/10/2024 3:17 PM EDT) Vitamin B12 323 232 - 1,245 pg/mL 11/10/2024 9:59 PM EDT [facility] Folate 12.90 >=4.80 ng/mL 11/10/2024 9:59 PM EDT [facility] Blood VENOUS BLOOD / Unknown Venipuncture / Unknown 11/10/2024 3:17 PM EDT 11/10/2024 3:17 PM EDT Narrative [facility] [place] - 11/10/2024 9:59 PM EDT Ingestion of inez doses of biotin (>5 mg/day) taken within 8 hours of drawing blood sample can interfere with this immunoassay test. Mariusz Junior MD CHEMISTRY ORDERABLES Final Res ult Performing Organization Address [facility] de Phone Number [facility] [address] , [place] [address] * TSH REFLEX TO FT4 (11/10/2024 3:17 PM EDT) TSH Reflex 1.040 0.270 - 4.200 mcIU/mL 11/10/2024 10:26 PM EDT [facility], [facility] Blood VENOUS BLOOD / Unknown Venipuncture / Unknown 11/10/2024 3:17 PM EDT 11/10/2024 3:17 PM EDT Narrative [facility], [facility] - 11/10/2024 10:26 PM EDT Ingestion of inez doses of biotin (>5 mg/day) taken within 8 hours of drawing blood sample can interfere with this immunoassay test. Mariusz Junior MD CHEMISTRY ORDERABLES Final Res ult Performing Organization Address [facility] Phone Number [facility] [address] , [place] [address] * BASIC METABOLIC PANEL (11/10/2024 3:17 PM EDT) Sodium 137 136 - 145 mmol/L 11/10/2024 10:26 PM EDT [facility] Potassium 4.0 3.5 - 5.0 mmol/L 11/10/2024 10:26 PM EDT [facility] Chloride 100 98 - 107 mmol/L 11/10/2024 10:26 PM EDT [facility], [facility] Total CO2 24 22 - 29 mmol/L 11/10/2024 10:26 PM EDT [facility] Anion Gap 13 7 - 16 mmol/L 11/10/2024 10:26 PM EDT [facility] Calcium 9.3 8.6 - 10.4 mg/dL 11/10/2024 10:26 PM EDT [facility] Glucose Lvl 90 70 - 99 mg/dL 11/10/2024 10:26 PM EDT [facility] BUN 15 6 - 20 mg/dL 11/10/2024 10:26 PM EDT [facility] Creatinine 0.72 0.51 - 1.30 mg/dL 11/10/2024 10:26 PM EDT [facility] eGFR (CKD-EPIcr 2020) 102 >=60 mL/min/1.7 3 m2 11/10/2024 10:26 PM EDT [facility] Comment:Estimated GFR was ca lculated using the CKD-EPIcr (2020) equation refit without race. The equation is recommended by the National Kid[employer] - [place] [employer] Neph[employer] Task Force. Blood VENOUS BLOOD / Unknown Venipuncture / Unknown 11/10/2024 3:17 PM EDT 11/10/2024 3:17 PM EDT Mariusz Junior MD CHEMISTRY ORDERABLES Final Res ult [facility] [address] , [place] [address] * HEMOGLOBIN A1C (11/10/2024 3:17 PM EDT) [facility] Signature Hgb A1C 5.5 4.2 - 5.6 % 11/10/2024 9:54 PM EDT [facility] Est. Avg Glucose 111 mg/dL 11/10/2024 9:54 PM EDT [facility] Blood VENOUS BLOOD / Unknown Venipuncture / Unknown 11/10/2024 3:17 PM EDT 11/10/2024 3:17 PM EDT Narrative [facility] - 11/10/2024 9:54 PM EDT REFERENCE RANGE: Normal: 4.0-5.6% Pre-diabetes: 5.7-6.4% Provisional diagnosis of diabetes: >6.4% Hgb F>10% and anything which shortens red cell survival, such as hemolytic anemia, or unstable hemoglobin variants such as HbSS, HbSC, or HbCC, will lower the HbA1c value associated with a given level of glycemic control. us Mariusz Junior MD CHEMISTRY ORDERABLES Final Res ult [facility] [address] , [address] [place], [place] [id number] * (ABNORMAL) CBC WITH DIFF (11/10/2024 3:17 PM EDT) WBC 9.5 3.7 - 10.3 x10(3)/mcL 11/10/2024 9:29 PM EDT [facility] RBC 5.50(H) 3.90 - 5.20 x10(6)/mcL 11/10/2024 9:29 PM EDT [facility] Hgb 12.9 11.2 - 15.7 g/dL 11/10/2024 9:29 PM EDT [facility] Hct 43.0 34.0 - 45.0 % 11/10/2024 9:29 PM EDT [facility] MCV 78.2(L) 80.0 - 100.0 fL 11/10/2024 9:29 PM EDT [facility] MCH 23.5(L) 26.0 - 34.0 pg 11/10/2024 9:29 PM EDT [facility] MCHC 30.0(L) 30.7 - 35.5 g/dL 11/10/2024 9:29 PM EDT [facility] RDW 16.8(H) <=14.9 % 11/10/2024 9:29 PM EDT [facility] Platelet 226 155 - 369 x10(3)/mcL 11/10/2024 9:29 PM EDT [facility] MPV 10.4 8.8 - 12.5 fL 11/10/2024 9:29 PM EDT [facility] Neut Percent 74.4 % 11/10/2024 9:29 PM EDT [facility] Comment:Neutrophils equals s egs plus bands Imm Gran% 0.5 % 11/10/2024 9:29 PM EDT [facility] Comment:Automated count of m etamyelocytes, myelocytes and promyelocytes. Lymph Percent 17.7 % 11/10/2024 9:29 PM EDT [facility], [facility] Bradley Percent 4.9 % 11/10/2024 9:[address] [facility], [facility] Eos Percent 2.0 % 11/10/2024 9:29 PM EDT [facility], [facility] Baso Percent 0.5 % 11/10/2024 9:[address] [facility], [facility] Neut # 7.0(H) 1.6 - 6.1 x10(3)/[facility] 11/10/2024 9:29 PM EDT [facility] LAB [facility], [facility] Comment:Neutrophils equals s egs plus bands IMMGRAN# 0.1 0.0 - 0.1 x10(3)/[facility] 11/10/2024 9:[address] [facility], [facility] Comment:Automated count of m etamyelocytes, myelocytes and promyelocytes. An absolute IG <0.1 is reported as 0.0. Lymph # 1.7 1.2 - 3.9 x10(3)/[facility] 11/10/2024 9:29 PM EDT [facility], [facility] Bradley # 0.5 0.3 - 0.9 x10(3)/[facility] 11/10/2024 9:29 PM EDT [facility], [facility] Eos# 0.2 0.0 - 0.5 x10(3)/mcL 11/10/2024 9:[address] [facility], [facility] Baso # 0.1 0.0 - 0.1 x10(3)/[facility] 11/10/2024 9:[address] [facility], [facility] Blood VENOUS BLOOD / Unknown Venipuncture / Unknown 11/10/2024 3:17 PM EDT 11/10/2024 3:17 PM EDT us Mariusz Junior MD HEMATOLOGY ORDERABLES Final Re sult [facility], [facility] [address] , [place] [address] * (ABNORMAL) IRON+TIBC (11/10/2024 3:17 PM EDT) Iron 47 30 - 160 mcg/dL 11/10/2024 10:26 PM EDT [facility] Transferrin 217 200 - 360 mg/dL 11/10/2024 10:26 PM EDT [facility] Transferrin Saturation 15(L) 20 - 50 % 11/10/2024 10:26 PM EDT [facility] TIBC 304 250 - 400 mcg/dL 11/10/2024 10:26 PM EDT [facility], [facility] Blood VENOUS BLOOD / Unknown Venipuncture / Unknown 11/10/2024 3:17 PM EDT 11/10/2024 3:17 PM EDT us Mariusz Junior MD CHEMISTRY ORDERABLES Final Res ult [facility], [facility] [address] , [place] [address] documented in this encounter Visit Diagnoses Diagnosis Iron deficiency anemia secondary to inadequate dietary iron intake- Primary Pre-diabetes Other abnormal glucose Essential hypertension Unspecified essential hypertension Generalized anxiety disorder Seasonal allergic rhinitis, unspecified trigger Chronic fatigue Other malaise and fatigue Hyperparathyroidism, primary Primary hyperparathyroidism documented in this encounter Discontinued Medications Medication Sig Discontinue Reason Start Date End Da te ALPRAZolam (XANAX) 0.5 mg Oral TabletIndications:Genera lized anxiety disorder Take 1 Tablet by mouth 2 times daily as needed for Anxiety. Reorder 08/08/2024 11/10/2024 documented as of this encounter Historical Medications * This list may reflect changes made after this encounter. nystatin (MYCOSTATIN) Top Cream Apply topically 2 times daily. to the affected area added in this encounter Additional Health Concerns Assessment Noted Time PHQ-9 Depression Total Score: 11 025 2:50 PM EDT PHQ-2 Depression Total Score: 4 11/11/19 25 2:50 PM EDT documented as of this encounter Care Teams Multimedia Technician Relationship Specialty Start Date End Date Mónica Adler APRN [address] [place] [address] PCP - General Nurse Practitioner-Family 12/08/16 documented as of this encounter
--- OUTSIDE RECORDS SUMMARY | 2024-12-05 22:37 | XMS_ITS | Encounter Summary ---
Author Organization [place] [address] Care Team Providers Care Firearms Sales Associate Name Role Phone Mónica Adler APRN Primary Care Provider [phone] Reason for Visit * Reason Onset Date Comments Referral 10/09/2024 [facility] called requesting add'l info on patient in order to schedule there - please advise Encounter Details Date Type Department Care Team (Late Contact Info) Description 10/09/2024 Telephone SEP Kiara VILLARREAL [address] [place] [address] Mónica Adler APRN [address] [place] [address] Referral ([facility] called requesting add'l info [...] Request Who is requesting the referral: Other [facility] What type of referral: REF99 - AMB REFERRAL TO SLEEP STUDIES/MEDICINE none 1 1 [id number] (CPT??) - [place] OFFICE/OUTPATIENT NEW MODERATE MDM 45 MINUTES none What is the reason / diagnosis for this referral:R29.818 (ICD-10-CM) - 781.99 (ICD-9-CM) - Suspected sleep apnea Have you been seen by your PCP for this issue: Yes Does patient have a preference on a group/provider: Yes (if yes, complete preferred provider info below) Preferred Provider/Group Name: [facility] Preferred Provider/Group Preferred Provider/Group [...] on filedocumented in this encounter Care Teams Firearms Sales Associate Relationship Specialty Start Date End Date Mónica Adler [place] [address] [place] [address] PCP - General Nurse Practitioner-Family 12/08/16 documented as of this encounter
--- OUTSIDE RECORDS SUMMARY | 2024-12-05 22:37 | XMS_ITS | Encounter Summary ---
Author Organization [place] [address] Care Team Providers Care Heating And Ventilating Drafter Name Role Phone Mónica Adler APRN Primary Care Provider [phone] Reason for Visit * Reason Onset Date Comments Medication Refill 10/30/2024 Encounter Details Date Type Department Care Team (Late st Contact Info) Description 10/30/2024 Refill SEP Kiara [address] [place] [id number] Mónica Adler APRN [address] [place] [address] Medication Refill Social History Tobacco Use [...] maintain an ideal body weight General No Moihni Mendiola, RMA documented as of this encounter [...] documented as of this encounter Care Teams Heating And Ventilating Drafter Relationship Specialty Start Date End Date Mónica Adler APRN [address] [place] [address] PCP - General Nurse Practitioner-Family 12/08/16 documented as of this encounter
--- OUTSIDE RECORDS SUMMARY | 2024-12-05 22:37 | XMS_ITS | Clinical Summary ---
Author Organization [facility] Address [address] [place], [place] [address] Phone Care Team Providers Care Quality Cloth Tester Name Role Phone Mónica Adler FILI Primary Care Provider [phone] Allergies No known active allergies Medications calcium [...] Active fluticasone propionate (FLONASE) 50 mcg/actuation Nasl [place], SuspensionIndica tions:Seasonal allergic rhinitis, unspecified trigger 1 [place] by Nasal route daily. 1 Each 2 [...] Overview (10/22/2023): Followed by spine clinic at [facility] Assessment & Plan (10/22/2023 4:49 PM [...] AM EST): Try to get results from [facility] - states she had imaging in [...] heart failure 08/18/2023 06/07/2024 Overview (08/18/2023): Saw [employer] cards. Per pt she has normal echo, [...] (10/22/2023 4:48 PM EDT): Being followed by [facility]. 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); Pre-diabetes; Essential hypertension; Generalized anxiety disorder; Seasonal allergic rhinitis, unspecified trigger; Chronic fatigue; Hyperparathyroidism, primary 11/09/[address] [place] [address] Nayely, Mónica, REMOTE SENSING SCIENTIST Medication Refill 10/30/[address] [place] [address] [place], Mónica, REMOTE SENSING SCIENTIST Medication Refill 10/27/[address] [place] [address] Nayely, Mónica, REMOTE SENSING SCIENTIST Medication Refill 10/27/2024 Orders Only [address] [place] [address] Chandrika Zimmerman CCMA ISAAC (obstructive sleep apnea); Nocturnal hypoxia 10/10/[address] [place] [address] Nayely, Mónica, REMOTE SENSING SCIENTIST Medication Refill 10/10/[address] [place] [address] Mariusz Junior MD Medication Refill 10/09/[address] [place] [address] IlliopolisSerjio fernandoika, REMOTE SENSING SCIENTIST Referral ([facility] called requesting add'l info on patient in order to schedule there - please advise) 09/22/2024 Telephone [place] [address] [place] [address] Mónica Adler, REMOTE SENSING SCIENTIST Results 09/18/2024 Refill [facility] [place] [address] [place] [address] Mónica Adler, REMOTE SENSING SCIENTIST Medication Refill 09/18/2024 Refill SEP [place] [address] [place] [address] Mariusz Junior MD Medication Refill 09/08/2024 Refill [place] [address] [place] [address] IlliopolisMónica fernando, REMOTE SENSING SCIENTIST Medication Refill from Last 3 Months Immunizations [...] Attack Father Tom greenfield age 67 - [place] Vision Loss Father Tom [place] No Known [...] Screening for malignant neoplasm of the rectum AIRLINE FLIGHT ATTENDANT CYTOLOGY REQUEST (PAP ONLY) Routine 08/07/2021 1:45 PM EDT Cervical cancer screening from Last 3 Months or Most Recently Relevant to Health Maintenance Results * (ABNORMAL) IRON+TIBC (11/10/2024 3:17 PM EDT) Pathologist [facility] Iron 47 30 - 160 mcg/dL 11/10/2024 10:26 PM EDT [facility] Transferrin 217 200 - 360 mg/dL 11/10/2024 10:26 PM EDT [facility] Transferrin Saturation 15(L) 20 - 50 % 11/10/2024 10:26 PM EDT [facility] TIBC 304 250 - 400 mcg/dL 11/10/2024 10:26 PM EDT [facility] Blood VENOUS BLOOD / Unknown Venipuncture / Unknown 11/10/2024 3:17 PM EDT 11/10/2024 3:17 PM EDT Mariusz Junior MD CHEMISTRY ORDERABLES Final Res ult Performing Organization Address [facility] de Phone Number [facility], [address] , [place] [address] * VITAMIN B12/ FOLIC ACID (11/10/2024 3:17 PM EDT) Pathologist [facility] Vitamin B12 323 232 - 1,245 pg/mL 11/10/2024 9:59 PM EDT [facility] Folate 12.90 >=4.80 ng/mL 11/10/2024 9:59 PM EDT [facility] Blood VENOUS BLOOD / Unknown Venipuncture / Unknown 11/10/2024 3:17 PM EDT 11/10/2024 3:17 PM EDT Narrative [facility] - 11/10/2024 9:59 PM EDT Ingestion of inez doses of biotin (>5 mg/day) taken within 8 hours of drawing blood sample can interfere with this immunoassay test. Mariusz Junior MD CHEMISTRY ORDERABLES Final Res ult Performing Organization Address [facility] de Phone Number [facility], [address] , [place] [address] * TSH REFLEX TO FT4 (11/10/2024 3:17 PM EDT) Pathologist [facility] TSH Reflex 1.040 0.270 - 4.200 mcIU/mL 11/10/2024 10:26 PM EDT [facility] [employer] Blood VENOUS BLOOD / Unknown Venipuncture / Unknown 11/10/2024 3:17 PM EDT 11/10/2024 3:17 PM EDT Narrative [facility] - 11/10/2024 10:26 PM EDT Ingestion of inez doses of biotin (>5 mg/day) taken within 8 hours of drawing blood sample can interfere with this immunoassay test. us Mariusz Junior MD CHEMISTRY ORDERABLES Final Res ult [facility] [address] [facility] , [place] [address] * (ABNORMAL) CBC WITH DIFF (11/10/2024 3:17 PM EDT) Pathologist [facility] WBC 9.5 3.7 - 10.3 x10(3)/mcL 11/10/2024 9:29 PM EDT [facility] RBC 5.50(H) 3.90 - 5.20 x10(6)/mcL 11/10/2024 9:29 PM EDT [facility] Hgb 12.9 11.2 - 15.7 g/dL 11/10/2024 [...] 11/10/2024 9:29 PM EDT [facility] RDW 16.8(H) <=14.9 % 11/10/2024 9:29 PM EDT [facility] Platelet 226 155 - 369 x10(3)/mcL 11/10/2024 9:29 PM EDT [facility] MPV 10.4 8.8 - 12.5 fL 11/10/2024 9:29 PM EDT [facility] Neut Percent 74.4 % 11/10/2024 9:29 PM EDT [facility] Comment:Neutrophils equals s egs plus bands Imm Gran% 0.5 % 11/10/2024 9:29 PM EDT [facility] Comment:Automated count of m etamyelocytes, myelocytes and promyelocytes. Lymph Percent 17.7 % 11/10/2024 9:29 PM EDT [facility] Ogle Percent 4.9 % 11/10/2024 9:29 PM EDT [facility] Eos Percent 2.0 % 11/10/2024 9:29 PM EDT [facility] Baso Percent 0.5 % 11/10/2024 9:29 PM EDT [facility] Neut # 7.0(H) 1.6 - 6.1 x10(3)/mcL 11/10/2024 9:29 PM EDT [facility] Comment:Neutrophils equals s egs plus bands IMMGRAN# 0.1 0.0 - 0.1 x10(3)/mcL 11/10/2024 9:29 PM EDT [facility] Comment:Automated count of m etamyelocytes, myelocytes and promyelocytes. An absolute IG <0.1 is reported as 0.0. Lymph # 1.7 1.2 - 3.9 x10(3)/mcL 11/10/2024 9:29 PM EDT [facility] Ogle # 0.5 0.3 - 0.9 x10(3)/mcL 11/10/2024 9:29 PM EDT [facility] Eos# 0.2 0.0 - 0.5 x10(3)/mcL 11/10/2024 9:29 PM EDT [facility] Baso # 0.1 0.0 - 0.1 x10(3)/mcL 11/10/2024 9:29 PM EDT [facility] [employer] Blood VENOUS BLOOD / Unknown Venipuncture / Unknown 11/10/2024 3:17 PM EDT 11/10/2024 3:17 PM EDT us Mariusz Junior MD HEMATOLOGY ORDERABLES Final Re sult [facility] [employer] [address] , [place] [address] * (ABNORMAL) PARATHYROID HORMONE INTACT (11/10/2024 3:17 PM EDT) Pathologist [facility] PTH Intact 79.30(H) 15.00 - 65.00 pg/mL 11/10/2024 10:07 PM EDT [facility] [employer] Blood VENOUS BLOOD / Unknown Venipuncture / Unknown 11/10/2024 3:17 PM EDT 11/10/2024 3:17 PM EDT Narrative [facility] [employer] [facility] - 11/10/2024 10:07 PM EDT Intact PTH [...] with this immunoassay test. us Mónica Adler REMOTE SENSING SCIENTIST CHEMISTRY ORDERABLES Final Result Performing Organization Address City/[facility]/ZIP Co de Phone Number [facility] [employer] [address] , [place] [address] * HEMOGLOBIN A1C (11/10/2024 3:17 PM EDT) Hgb A1C 5.5 4.2 - 5.6 % 11/10/2024 9:54 PM EDT [facility] Est. Avg Glucose 111 mg/dL 11/10/2024 9:54 PM EDT [facility] Blood VENOUS BLOOD / Unknown Venipuncture / Unknown 11/10/2024 3:17 PM EDT 11/10/2024 3:17 PM EDT Narrative [facility] - 11/10/2024 9:54 PM EDT REFERENCE RANGE: Normal: 4.0-5.6% Pre-diabetes: 5.7-6.4% Provisional diagnosis of diabetes: >6.4% Hgb F>10% and anything which shortens red cell survival, such as hemolytic anemia, or unstable hemoglobin variants such as HbSS, HbSC, or HbCC, will lower the HbA1c value associated with a given level of glycemic control. us Mariusz Junior MD CHEMISTRY ORDERABLES Final Res ult [facility] [address] [facility] , [address] [place], [place] [id number] * BASIC METABOLIC PANEL (11/10/2024 3:17 PM EDT) Sodium 137 136 - 145 mmol/L 11/10/2024 10:26 PM EDT [facility] Potassium 4.0 3.5 - 5.0 mmol/L 11/10/2024 10:26 PM EDT [facility] Chloride 100 98 - 107 mmol/L 11/10/2024 10:26 PM EDT [facility] Total CO2 24 22 - 29 mmol/L 11/10/2024 10:26 PM EDT [facility] Anion Gap 13 7 - 16 mmol/L 11/10/2024 10:26 PM EDT [facility] Calcium 9.3 8.6 - 10.4 mg/dL 11/10/2024 10:26 PM EDT [facility] Glucose Lvl 90 70 - 99 mg/dL 11/10/2024 10:26 PM EDT [facility] BUN 15 6 - 20 mg/dL 11/10/2024 10:26 PM EDT [facility] Creatinine 0.72 0.51 - 1.30 mg/dL 11/10/2024 10:26 PM EDT [facility] [employer] eGFR (CKD-EPIcr 2020) 102 >=60 mL/min/1.7 3 m2 11/10/2024 10:26 PM EDT [facility] [employer] Comment:Estimated GFR was ca lculated using the CKD-EPIcr (2020) equation refit without race. The equation is recommended by the National Kidney Foundation - [place] Society of Nephrology Task Force. Blood VENOUS BLOOD / Unknown Venipuncture / Unknown 11/10/2024 3:17 PM EDT 11/10/2024 3:17 PM EDT Mariusz Junior MD CHEMISTRY ORDERABLES Final Res ult [facility] [employer] [facility] [address] [facility] , [place] [address] * HM MAMMOGRAPHY (12/30/2022 7:23 AM EDT) [facility] Provider HEALTH MAINTENANCE Final Res ult SEP OFFICE * COLOGUARD (09/16/2022 10:30 PM EDT) COLOGUARD CLINICAL REPORT Negative Negative [facility] Comment: NEGATIVE TEST RESULT. A [...] colonoscopy. (Haider Farnsworth, N Engl J Med 2014;370(14):9808-7592) The normal value (reference range) for this assay is negative. COLOGUARD RE-SCREENING RECOMMENDATION: Periodic colorectal cancer screening is an important part of preventive healthcare for asymptomatic individuals at average risk for colorectal cancer. Following a negative Cologuard result, the [place] Cancer Society and U.S. Multi-Society Task Force screening guidelines recommend a Cologuard re-screening interval of 3 years. References: [place] Cancer Society Guideline for Colorectal Cancer Screening: https://www.cancer.org/cancer/zviis-ioybwk-wnlwvh/indpakpen-mhujjcnkv-mmomigv/ac s-rec ommendations.html.; Calin DK, Mary CR, Marco Antonio HallK, Colorectal Cancer Screening: Recommendations for Physicians and Patients from the U.S. Multi-Society Task Force on Colorectal Cancer Screening , Am J Gastroenterology 2017; 112:5388-0090. TEST DESCRIPTION: Composite algorithmic analysis of stool [...] colonoscopy. (Haider Farnsworth, N Engl J Med 2014;370(14):9667-6613.) Cologuard may produce a false negative or false positive result (no colorectal cancer or precancerous polyp present at colonoscopy follow up). A negative Cologuard test result does not guarantee the absence of CRC or advanced adenoma (pre-cancer). The current Cologuard screening interval is every 3 years. ([place] Cancer Society and U.S. Multi-Society Task Force). Cologuard performance data in a 10,000 patient pivotal study using colonoscopy as the reference method can be accessed at the following location: www.Unicotrip.Tracour/results. Additional description of the Cologuard test process, warnings and precautions can be found at www.cologuard.com. Stool 09/16/2022 10:3 0 PM EDT 09/18/2022 8:25 PM EDT Mónica Adler APRN [employer] SCIENCE - ORDERABLES Final Result Performing Organization Address City/State/[facility] Co de Phone Number [employer], [place] [address], [facility] [address] [place] [address] * AIRLINE FLIGHT ATTENDANT CYTOLOGY REQUEST (PAP ONLY) (08/07/2021 1:45 PM EDT) CASE REPORT Gynecologic Cytology Report Case: [id number] Authorizing Provider: Mónica Adler APRN Collected: 08/07/2021 1345 Ordering Location: [facility] Received: 08/07/2021 1345 First Screen: Sandra Calhoun CT Rescreen: Yohana Richey CT Specimen: LIQUID-BASED PAP - CERVICAL/ENDOCERV ICAL, Cervix, Endocervical 08/12/2021 3:28 PM EDT [facility] PAP FINAL DIAGNOSIS Negative for intraepithelial lesion or malignancy 08/12/2021 3:28 PM EDT [facility] at 1528 EDT MICROSCOPIC DESCRIPTION Microscopic examination is performed and the findings corroborate the diagnosis. 08/12/2021 3:28 PM EDT [facility] PAP SMEAR ADEQUACY Satisfactory for evaluation 08/12/2021 3:28 PM EDT [facility] SPECIMEN LIMITATIONS Obscured by inflammation 08/12/2021 3:28 PM EDT [facility] PAP ORGANISMS NOTED Abundant bacteria present. 08/12/2021 3:28 PM EDT [facility] ENDOCERVICAL T-ZONE Transformation zone absent. 08/12/2021 3:28 PM EDT [facility] EMBEDDED IMAGES 3:28 PM EDT [facility] PAP DISCLAIMER This case was [...] before definitive therapy. Processed using the [employer] Admin Automated cytology screening device ([employer]). 08/12/2021 3:28 PM EDT [facility] [employer] ENDOCERVICAL STRUCTURE / Unknown 08/07/2021 1:45 PM EDT 08/07/2021 1:45 PM EDT Mónica Adler REMOTE SENSING SCIENTIST CYTOLOGY ORDERABLES Final R esult [facility] [address] [place] [address] from Last 3 Months or Most Recently Relevant to Health Maintenance Insurance [employer] [facility] DUAL COMPLETE HMO [place] [facility] [place] [facility] DUAL COMPLETE HMO [place] [employer] [facility] [place] Care Teams Quality Cloth Tester Relationship Specialty Start Date End Date Mónica Adler APRN [address] [place], [place] [id number] PCP - General Nurse Practitioner-Family 12/08/16
--- OUTSIDE RECORDS SUMMARY | 2024-12-05 22:37 | XMS_ITS | Encounter Summary ---
Author Organization [place] [address] Care Team Providers Care Vending Machine Attendant Name Role Phone Mónica Adler APRN Primary Care Provider [phone] Reason for Visit * Reason Onset Date Comments Medication Refill 11/09/2024 Encounter Details Date Type Department Care Team (Late st Contact Info) Description 11/09/2024 Refill [facility] [address] [place] [phone] Mónica Adler APRN [address] [facility] [place] [address] Medication Refill Social History Tobacco Use [...] documented as of this encounter Care Teams Vending Machine Attendant Relationship Specialty Start Date End Date Mónica [place]ler [place] [address] [place] [address] PCP - General Nurse Practitioner-Family 12/08/16 documented as of this encounter
--- OUTSIDE RECORDS SUMMARY | 2024-12-05 22:37 | XMS_ITS | Encounter Summary ---
Author Organization [place] [address] Care Team Providers Care Consulting Analyst Name Role Phone Mónica Adler APRN Primary Care Provider [phone] Reason for Visit * Reason Comments Medication Refill Encounter Details Date Type Department Care Team (Late st Contact Info) Description 10/27/2024 Refill [facility] [address] [place] [address] Mónica Adler APRN [address] [place] [address] Medication Refill Social History Tobacco Use Types [...] and sent to requesting pharmacy. Routed to [facility] if an appointment is needed. documented [...] documented as of this encounter Care Teams Consulting Analyst Relationship Specialty Start Date End Date Mónica Adler APRN [address] [place], [place] [phone] PCP - General Nurse Practitioner-Family 12/08/16 documented as of this encounter
--- OUTSIDE RECORDS SUMMARY | 2024-12-05 22:37 | XMS_ITS | Encounter Summary ---
Author Organization [place] [address] Care Team Providers Care [employer] Name Role Phone Mónica Adler APRN Primary Care Provider [phone] Reason for Visit * Reason Onset Date Comments Medication Refill 10/10/2024 Encounter Details Date Type Department Care Team (Late st Contact Info) Description 10/10/2024 Refill [facility] [address] [place] [phone] Mónica Adler APRN [address] [facility] [address] Medication Refill Social History Tobacco Use [...] documented as of this encounter Care Teams [employer] Relationship Specialty Start Date End Date Móniac Adler APRN [address] [place] [address] PCP - General Nurse Practitioner-Family 12/08/16 documented as of this encounter
--- OUTSIDE RECORDS SUMMARY | 2024-12-05 22:37 | XMS_ITS | Encounter Summary ---
Author Organization [place] [address] Care Team Providers Care Hyperbaric Welder Diver Name Role Phone Mónica Adler RETORT LOADER Primary Care Provider [phone] Reason for Visit * Reason Onset Date Comments Medication Refill 10/10/2024 Encounter Details Date Type Department Care Team (Late st Contact Info) Description 10/10/2024 Refill [facility] [address] [place] [phone] Mariusz Junior MD [address] [place] [address] [place] [address] Medication Refill Social History Tobacco Use Types [...] documented as of this encounter Care Teams Hyperbaric Welder Diver Relationship Specialty Start Date End Date Mónica Adler APRN [address] [place], [place] [address] PCP - General Nurse Practitioner-Family 12/08/16 documented as of this encounter
--- OUTSIDE RECORDS SUMMARY | 2024-12-05 22:37 | XMS_ITS | Encounter Summary ---
Author Organization [place] [address] Care Team Providers Care Animal Bounty Hunter Name Role Phone Mónica Adler APRN Primary Care Provider [phone] Encounter Details Date Type Department Care Team (Late st Contact Info) Description 10/27/2024 Orders Only [facility] [address] [place] [address] Chandrika Zimmerman CCMA ISAAC (obstructive sleep [...] Hypoxemia documented in this encounter Care Teams Animal Bounty Hunter Relationship Specialty Start Date End Date Mónica Adler APRN [address] [place], [place] [address] PCP - General Nurse Practitioner-Family 12/08/16 documented as of this encounter
--- OUTSIDE RECORDS SUMMARY | 2024-12-05 22:37 | XMS_ITS | Encounter Summary ---
Author Organization [place] [address] Care Team Providers Care Gum Rolling Machine Tender Name Role Phone Mónica Adler APRN Primary Care Provider [phone] Encounter Details Date Type Department Care Team (Late st Contact Info) Description 11/13/2024 Results Follow-Up [facility] [address] [place] [address] Mariusz Junior MD [address] [facility] [place] [address] IRON+TIBC, CBC WITH DIFF, HEMOGLOBIN A1C, [...] documented as of this encounter Care Teams Gum Rolling Machine Tender Relationship Specialty Start Date End Date Mónica Adler APRN [address] [place] [address] PCP - General Nurse Practitioner-Family 12/08/16 documented as of this encounter
--- NOTE | 2024-12-05 22:38 | ECG_ITS ---
APPROVED REPORT Exam: Resting ECG HR:68 bpm ECG Measurements Heart Rate 68 AXES NJ 173 P 84 QRSd 103 QRS 72 QT 379 T 56 QTc 396 Conclusion SINUS RHYTHM LOW QRS VOLTAGE IN PRECORDIAL LEADS [QRS DEFLECTION < 1.0 mV IN CHEST LEADS] BORDERLINE ECG UNCONFIRMED REPORT Electronically signed by : CHAVA VALDOVINOS, 12/07/2024 06:58:00
[2024-12-05 22:41] VITALS: BP 149/70; PULSE 63; RESP 16; TEMP 36.7; O2SAT 95; BMI 39.5
--- NOTE | 2024-12-05 22:43 | CT_ITS ---
PROCEDURE INFORMATION: Exam: CT Abdomen And Pelvis With Contrast Exam date and time: 12/05/2024 11:01 PM Age: 49 years old Clinical indication: Abdominal pain; Additional info: Ruq pain S/P recent cholecystectomy TECHNIQUE: Imaging protocol: Computed tomography of the abdomen and pelvis with contrast. 3D rendering (Not supervised by radiologist): MIP and/or 3D reconstructed images were created by the technologist. Radiation optimization: All CT scans at this facility use at least one of these dose optimization techniques: automated exposure control; mA and/or kV adjustment per patient size (includes targeted exams where dose is matched to clinical indication); or iterative reconstruction. Contrast material: ISOVUE; Contrast volume: 80 ml; Contrast route: IV; COMPARISON: CT ABDOMEN PELVIS W CON 12/02/2024 10:28 PM FINDINGS: Liver: Normal. No mass. Gallbladder and biliary ducts: Gallbladder is surgically absent. No significant biliary ductal dilation. Pancreas: Normal. No ductal dilation. Spleen: Normal. No splenomegaly. Adrenal glands: Normal. No mass. Kidneys and ureters: Simple cortical cysts are noted in both kidneys, the larger measuring 2.2 cm in the upper pole of the right kidney. Single small calyceal stones noted in the right kidney. No hydronephrosis. Stomach and bowel: Unremarkable. No obstruction. No mucosal thickening. Appendix: No evidence of appendicitis. Intraperitoneal space: 4 cm rounded area of mottled gas and fluid attenuation anterior to the gallbladder fossa presumably due to recent surgery. No significant free air or free fluid evident elsewhere in the abdomen or pelvis. Vasculature: Unremarkable. No abdominal aortic aneurysm. Lymph nodes: Unremarkable. No enlarged lymph nodes. Urinary bladder: Unremarkable as visualized. Reproductive: 2.6 cm simple appearing cyst has developed in the left ovary. Uterus and right ovary appear unremarkable Bones/joints: Moderate degenerative changes in the lower lumbar spine. No vertebral body compression. No acute fracture. Soft tissues: Unremarkable. IMPRESSION: Small (4 cm) area of mottled gas and fluid attenuation anterior to the gallbladder fossa presumably due to recent cholecystectomy. No well-defined loculated fluid collection or prominent pneumoperitoneum. Otherwise unremarkable study.
--- NOTE | 2024-12-05 22:43 | CT_ITS ---
PROCEDURE INFORMATION: Exam: CTA Chest With Contrast Exam date and time: 12/05/2024 11:01 PM Age: 49 years old Clinical indication: Shortness of breath; S/P gb surgery two days ago; Additional info: Shortness of breath, S/P surgery TECHNIQUE: Imaging protocol: Computed tomographic angiography of the chest with contrast. Exam focused on the arteries. 3D rendering (Not supervised by radiologist): MIP and/or 3D reconstructed images were created by the technologist. Radiation optimization: All CT scans at this facility use at least one of these dose optimization techniques: automated exposure control; mA and/or kV adjustment per patient size (includes targeted exams where dose is matched to clinical indication); or iterative reconstruction. Contrast material: ISOVUE; Contrast volume: 80 ml; Contrast route: INTRAVENOUS (IV); COMPARISON: CR XR CHEST 2V 09/13/2023 10:32 AM FINDINGS: Pulmonary arteries: Normal. No pulmonary emboli. Aorta: Unremarkable. No aortic aneurysm. No aortic dissection. Lungs: Scattered linear opacities in the bilateral lower lungs compatible with subsegmental atelectasis. Lungs are otherwise appear clear. Pleural spaces: Unremarkable. No pneumothorax. No pleural effusion. Heart: Unremarkable. No cardiomegaly. No pericardial effusion. Lymph nodes: Unremarkable. No enlarged lymph nodes. Bones/joints: Unremarkable. No acute fracture. Soft tissues: Unremarkable. IMPRESSION: No evidence of pulmonary embolus or acute aortic pathology. Mild scattered subsegmental atelectasis in the lungs. Otherwise unremarkable CT chest.
--- NOTE | 2024-12-05 22:45 | ED_ITS ---
Discharge Plan Disposition Patient Disposition: Admitted Clinical Impressions Clinical Impression: Postoperative abdominal pain, Intra-abdominal fluid collection Discharge ED Provider: Jannette Mera General Adult HPI <Jannette Mera DO - Last Filed: 12/05/24 23:55> General Chief complaint: Abdominal Pain Stated complaint: pain and SOA Time Seen by Provider: 12/05/24 22:43 Mode of Arrival: Ambulatory Source of Information: Patient and Spouse Description of Symptoms (Recalled from ER Triage Doc. by RN): pt presents 2 days post op cholecysectomy with c/o SOA and pain that is not controlled per medications that were prescribed upon discharge. Pt reports associated nausea with referred pain from her upper abd into her right shoulder. Pt denies any complaints with surgical incisions and denies fevers at home. History of Present Illness HPI narrative: Patient is a 49-year-old female with no significant past medical history presents to the emergency department with right upper quadrant pain and right shoulder pain after a cholecystectomy 2 days ago. He was recently admitted for a laparoscopic cholecystectomy done on 12/03 here at [place]. Patient states that her pain started acutely today pain is in her right upper quadrant radiates into the right shoulder patient is having some pleuritic chest pain. States that she was discharged home with Percocet but continues to have pain. Patient reports nausea no vomiting. Patient has not had any fevers. Patient denies any chest pain but does report some palpitations. Patient denies any other complaints at this time. Related Data Home Medications ?Medication ?Instructions ?Recorded ?Confirmed sertraline 100 mg tablet 200 mg PO DAILY Depression 1 05/27/17 12/03/24 alprazolam 0.5 mg tablet 0.5 mg PO BIDP PRN Anxiety 0 09/14/19 12/03/24 diclofenac sodium 50 mg 50 mg PO BID 06/16/23 tablet,delayed release levothyroxine 75 mcg tablet 75 mcg PO DAILY 06/16/23 0 12/03/24 albuterol sulfate 90 mcg/actuation 2 puff inhalation Q 4HP PRN SOA 11/20/24 12/03/24 aerosol inhaler fluticasone propionate 50 1 spray intranasal DAILY 03/0612/03/24 mcg/actuation nasal spray,suspension dapagliflozin propanediol 5 mg 5 mg PO DAILY 12/03/24 12/03/24 tablet (Farxiga) rosuvastatin 5 mg tablet 5 mg PO HS 12/03/24 12/03/24 Previous Rx's ?Medication ?Instructions ?Recorded metoprolol succinate 100 mg 100 mg PO DAILY Hypertensi on #90 09/06/24 tablet,extended release 24 hr tabs levocetirizine 5 mg tablet 5 mg PO DAILY #30 tabs 11/10 05/06 oxycodone-acetaminophen 5 mg-325 1 tab PO Q6HP PRN Mod erate Pain 12/04/24 mg tablet (4-6) 3 days #12 tabs simethicone 180 mg capsule 180 mg PO BID PRN bloating #10 caps 12/04/24 Allergies Allergy/AdvReac Type Severity Reaction Status Date / Time No Known Allergies Allergy Verified 11/20/24 11:06 [facility] <Jannette Mera, - Last Filed: 12/05/24 23:55> [facility] Disclaimer: The information contained in this section may have been updated after the patient was seen, as this information can be updated by other users. Medical History (Updated 12/06/24 @ 00:12 by Frandy Ramirez MD) Multiple thyroid nodules CHF (congestive heart failure) Asthma HLD (hyperlipidemia) HTN (hypertension) Anxiety Hyperparathyroidism Elevated brain natriuretic peptide (BNP) level Anemia Surgical History Status post fine needle aspiration History of hernia repair Family History Other Family history of acute congestive heart failure Family history of diabetes mellitus type II Family history of hyperlipidemia Family history of hypertension Social History (Updated 12/03/24 @ 15:29 by Shakir Dyer CRNA) Smoking Status: Never smoker alcohol intake: never substance use type: denies use current occupational status: other Travel in the last 8 weeks?: None household members: other housing: house current occupational exposures/hazards: No Have you lived/traveled outside [place] in past 30 days?: No Contact w/someone who lives/traveled outside [place] past 30 days?: No Exposure to someone with infectious disease in past 14 days?: No Do you have a fever (greater than 100.4 F or 38 C)?: No Have you tested positive for COVID-19?: No Exposed to someone with COVID-19 in past 14 days?: No Do you have a sore throat?: No Do you have a cough?: No Do you have any weakness?: No Do you have any diarrhea?: No Are you experiencing any unusual bleeding?: No Do you have any muscle aches/pain?: No Do you have any abdominal pain?: No Are you experiencing loss of taste or smell?: No Other Medical History Have you received the Flu Vaccine for this season: No Have you received the Pneumonia Vaccine: No <Jannette Mera, - Last Filed: 12/05/24 23:55> ROS Obtained: Yes All systems reviewed & no additional complaints except as documented and Yes Systems reviewed as appropriate & no additional complaints except as documented Physical Exam <Jannette Mera DO - Last Filed: 12/05/24 23:55> General General appearance: alert and in no apparent distress Head Head exam: atraumatic, normocephalic and normal inspection Eye Eye exam: Present normal appearance, PERRL and EOMI; Absent scleral icterus ENT ENT exam: Present normal exam and normal external ear exam Neck Neck exam: Present normal inspection and full ROM Chest Chest inspection: Present normal inspection and symmetric chest wall rise Respiratory Respiratory exam: Present normal lung sounds bilaterally; Absent respiratory distress or wheezes Cardiovascular Cardiovascular exam: Present regular rate, normal rhythm and normal heart sounds Abdominal Exam Abdominal exam: Present soft and distention; Absent tenderness, guarding or rebound Extremities Exam Extremities exam: Present normal inspection and full ROM Back Exam Back exam: Present normal inspection and full ROM Neurological Exam Neurological exam: Present alert and oriented X3 Psychiatric Psychiatric exam: Present normal affect and normal mood Skin Skin exam: Present warm and dry Medical Decision Making <Jannette Mera DO - Last Filed: 12/05/24 23:55> Medical Records Medical records reviewed: Yes I reviewed the patient's medical records. Screening: Per USPSTF and CDC recommendations, given the prevalence of disease in our region, it is our hospital?s policy to screen for HIV and viral Hepatitis for all patients aged 18 and over and those with ongoing risk factors. Gary Inquiry Pt receiving controlled substance: No Vital Signs: 12/05/24 22:41 12/06/24 00:07 Temperature 98.1 F Temperature Source Oral Pulse Rate 67 Pulse Rate [Radial] 63 Respiratory Rate 16 14 Blood Pressure 139/84 Blood Pressure [Right Arm] 149/70 H Blood Pressure Mean [Right Arm] 96 Blood Pressure Position Sitting Blood Pressure Position [Right Arm] Sitting 02 Sat by Pulse Oximetry 95 98 Oxygen Delivery Method Room Air Room Air Lab Data Lab results reviewed: Yes I reviewed the patient's lab results. Lab Results 12/05/24 22:54: WBC 9.6, RBC 4.48, Hgb 11.0 L, Hct 35.9 L, MCV 80.1 L, MCH 24.6 L, MCHC 30.6 L, RDW 16.4, Plt Count 212, MPV 10.2, Neut % (Auto) 69.0, Lymph % (Auto) 21.5, Mcdonough % (Auto) 6.3, Eos % (Auto) 2.3, Baso % (Auto) 0.5, Neut # (Auto) 6.6, Lymph # (Auto) 2.1, Mcdonough # (Auto) 0.6, Eos # (Auto) 0.2, Baso # (Auto) 0.1, Sodium 139, Potassium 4.1, Chloride 110 H, Carbon Dioxide 22, Anion Gap 11.1, BUN 13, Creatinine 0.70, Estimated Creat Clear 181, Estimated GFR 89, Est GFR ( Amer) 108, Glucose 93, Calcium 8.1 L, Total Bilirubin 0.4, AST 48 H, ALT 35, Alkaline Phosphatase 62, Troponin I < 0.01, Total Protein 6.8, Albumin 3.9, Globulin 2.9, Albumin/Globulin Ratio 1.3, Lipase 73 12/05/24 22:54 12/05/24 22:54 Orders (Tests/Meds): ED MEDICATIONS Discontinued Medications Generic Name Dose Route Start Last Admin Trade Name Paco PRN Reason Stop Dose Admin Iopamidol 80 ml 12/05/24 23:06 12/05/24 23:07 Iopamidol-370 (76%);100ml Bottle IV 12/05/24 23:07 80 ml ONCE ONE Administration Morphine Sulfate 4 mg 12/05/24 22:43 12/05/24 22:49 Morphine 4mg/Ml Syringe IV 12/05/24 22:44 4 mg ONCE ONE Administration Ondansetron HCl 4 mg 12/05/24 22:43 12/05/24 22:49 Ondansetron 4mg/2ml Vial IV 12/05/24 22:44 4 mg ONCE ONE Administration Sodium Chloride 50 ml 12/05/24 23:06 12/05/24 23:08 0.9 % Sodium Chloride 50 Ml Vial IV 12/05/24 23:07 50 ml ONCE ONE Administration Sodium Chloride 10 ml 12/05/24 23:06 12/05/24 23:07 Sodium Chloride 0.9% 10ml Syr (Rad Only) IV 12/05/24 23:07 10 ml ONCE ONE Administration ORDERS Category Date Time Status CT abdomen pelvis w con Stat Cat Scan 12/05/24 22:[address] angio chest PE protocol Stat Cat Scan 12/05/24 22:43 Completed CBC w/Auto Diff [Complete Blood Count Auto Diff] Stat Lab 12/05/24 22:54 Completed CMP [Comprehensive Metabolic Panel] Stat Lab 12/05/24 22:54 Completed Lipase Stat Lab 12/05/24 22:54 Completed Trop I [Troponin I] Stat Lab 12/05/24 22:54 Completed Troponin I Q3H Lab 12/06/24 01:45 Ordered Troponin I Q3H Lab 12/06/24 04:45 Ordered Medical Decision Narrative: Patient is a 49-year-old female with a past medical history of recent cholecystectomy who presented to the emergency department with right upper quadrant and right shoulder pain. On arrival, patient was hemodynamically stable with unremarkable vital signs. Differential includes but not limited to: Postoperative pain, postoperative pancreatitis, phrenic nerve irritation, postoperative abscess, pulmonary embolism, ACS/VT, amongst others. Patient's labs were reviewed and interpreted by myself: CBC showed no leukocytosis, hemoglobin stable. CMP unremarkable. Initial troponin less than 0.01. Lipase normal. EKG was reviewed and interpreted by myself and showed normal sinus rhythm at [address] or T wave changes concerning for ischemia. CT chest and CT abdomen pelvis were pending at the time of signout. Was given morphine and Zofran for symptomatic management in the emergency department. Patient was signed out to the oncoming provider Dr. Frandy Ramirez pending CT scans and final disposition. <Frandy Ramirez MD - Last Filed: 12/06/24 00:24> Vital Signs: 12/05/24 22:41 12/06/24 00:07 Temperature 98.1 F Temperature Source Oral Pulse Rate 67 Pulse Rate [Radial] 63 Respiratory Rate 16 14 Blood Pressure 139/84 Blood Pressure [Right Arm] 149/70 H Blood Pressure Mean [Right Arm] 96 Blood Pressure Position Sitting Blood Pressure Position [Right Arm] Sitting 02 Sat by Pulse Oximetry 95 98 Oxygen Delivery Method Room Air Room Air Lab Data Lab Results 12/05/24 22:54: WBC 9.6, RBC 4.48, Hgb 11.0 L, Hct 35.9 L, MCV 80.1 L, MCH 24.6 L, MCHC 30.6 L, RDW 16.4, Plt Count 212, MPV 10.2, Neut % (Auto) 69.0, Lymph % (Auto) 21.5, Mcdonough % (Auto) 6.3, Eos % (Auto) 2.3, Baso % (Auto) 0.5, Neut # (Auto) 6.6, Lymph # (Auto) 2.1, Mcdonough # (Auto) 0.6, Eos # (Auto) 0.2, Baso # (Auto) 0.1, Sodium 139, Potassium 4.1, Chloride 110 H, Carbon Dioxide 22, Anion Gap 11.1, BUN 13, Creatinine 0.70, Estimated Creat Clear 181, Estimated GFR 89, Est GFR ( Amer) 108, Glucose 93, Calcium 8.1 L, Total Bilirubin 0.4, AST 48 H, ALT 35, Alkaline Phosphatase 62, Troponin I < 0.01, Total Protein 6.8, Albumin 3.9, Globulin 2.9, Albumin/Globulin Ratio 1.3, Lipase 73 Orders (Tests/Meds): ED MEDICATIONS Discontinued Medications Generic Name Dose Route Start Last Admin Trade Name Paco PRN Reason Stop Dose Admin Iopamidol 80 ml 12/05/24 23:06 12/05/24 23:07 Iopamidol-370 (76%);100ml Bottle IV 12/05/24 23:07 80 ml ONCE ONE Administration Morphine Sulfate 4 mg 12/05/24 22:43 12/05/24 22:49 Morphine 4mg/Ml Syringe IV 12/05/24 22:44 4 mg ONCE ONE Administration Ondansetron HCl 4 mg 12/05/24 22:43 12/05/24 22:49 Ondansetron 4mg/2ml Vial IV 12/05/24 22:44 4 mg ONCE ONE Administration Sodium Chloride 50 ml 12/05/24 23:06 12/05/24 23:08 0.9 % Sodium Chloride 50 Ml Vial IV 12/05/24 23:07 50 ml ONCE ONE Administration Sodium Chloride 10 ml 12/05/24 23:06 12/05/24 23:07 Sodium Chloride 0.9% 10ml Syr (Rad Only) IV 12/05/24 23:07 10 ml ONCE ONE Administration ORDERS Category Date Time Status CT abdomen pelvis w con Stat Cat Scan 12/05/24 22:[address] angio chest PE protocol Stat Cat Scan 12/05/24 22:43 Completed CBC w/Auto Diff [Complete Blood Count Auto Diff] Stat Lab 12/05/24 22:54 Completed CMP [Comprehensive Metabolic Panel] Stat Lab 12/05/24 22:54 Completed Lipase Stat Lab 12/05/24 22:54 Completed Trop I [Troponin I] Stat Lab 12/05/24 22:54 Completed Troponin I Q3H Lab 12/06/24 01:45 Ordered Troponin I Q3H Lab 12/06/24 04:45 Ordered Medical Decision Narrative: Patient is a 49-year-old female with a past medical history of recent cholecystectomy who presented to the emergency department with right upper quadrant and right shoulder pain. On arrival, patient was hemodynamically stable with unremarkable vital signs. Differential includes but not limited to: Postoperative pain, postoperative pancreatitis, phrenic nerve irritation, postoperative abscess, pulmonary embolism, ACS/VT, amongst others. Patient's labs were reviewed and interpreted by myself: CBC showed no leukocytosis, hemoglobin stable. CMP unremarkable. Initial troponin less than 0.01. Lipase normal. EKG was reviewed and interpreted by myself and showed normal sinus rhythm at [address] or T wave changes concerning for ischemia. CT chest and CT abdomen pelvis were pending at the time of signout. Was given morphine and Zofran for symptomatic management in the emergency department. Patient was signed out to the oncoming provider Dr. Frandy Ramirez pending CT scans and final disposition. Ashley STEARNS: I assumed care of the patient at the time of handoff from the prior provider. On reassessment patient remained stable. CT imaging was independently interpreted by me, no evidence of PE or pneumonia. CT of the abdomen and pelvis does show a focal fluid and gas collection near the liver edge. It does not appear to have a well-defined rim to suggest a definitive abscess. Unclear whether this is normal postoperative changes or a developing abscess at this time. Patient is afebrile and her labs are not suggestive of a developing infection. However, given her significant pain and the abnormal findings on CT, I think she would benefit from admission for pain management and surgery evaluation in the morning. Interactive discussion was had with hospitalist on- call for admission. We considered administering IV antibiotics but will hold off at this time. Critical Care <Jannette Mera, DO - Last Filed: 12/05/24 23:55> Critical Care Time Critical Care Time: No
[2024-12-05] MEDS: ONDANSETRON 4MG/2ML VIAL 4 MG IV (22:49)
[2024-12-05] MEDS: MORPHINE 4MG/ML SYRINGE 4 MG IV (22:49)
[2024-12-05 23:06] LABS: Albumin Level 3.9 g/dl (3.5-5.0); Chloride 110 mmol/L (98-107); Potassium 4.1 mmoL/L (3.5-5.1); Sodium 139 mmol/L (136-145)
[2024-12-05] MEDS: IOPAMIDOL-370 (76%);100ML BOTTLE 80 ML IV (23:07)
[2024-12-05] MEDS: SODIUM CHLORIDE 0.9% 10ML SYR (RAD ONLY) 10 ML IV (23:07)
[2024-12-05] MEDS: 0.9 % SODIUM CHLORIDE 50 ML VIAL IV (23:08)
[2024-12-05 23:09] LABS: Alanine Aminotransferase 35 U/L (12-78); Albumin/Globulin Ratio 1.3 (1.1-1.8); Alkaline Phosphatase 62 U/L (38-126); Anion Gap 11.1 mEq/L (5-15); Aspartate Amino Transferase 48 U/L (14-36); Bilirubin,Total 0.4 mg/dl (0.2-1.3); Blood Urea Nitrogen 13 mg/dl (7-17); Carbon Dioxide 22 mmol/L (22.0-30.0); Creatinine Clearance Estimated 181 mL/min (50-200); Creatinine,Serum 0.70 mg/dl (0.52-1.04); Estimated Glomerular Filt Rate 89 ml/min (>60); GFR (African American) 108 ML/MIN (>60); Globulin 2.9 g/dL (1.3-3.2); Hematocrit 35.9 % (37.0-47.0); Hemoglobin 11.0 g/dL (12.2-16.2); Immature Granulocytes % 0.4 %; Lipase 73 U/L (23-300); Mean Corpuscular HGB Conc 30.6 g/dL (31.8-35.4); Mean Corpuscular Hemoglobin 24.6 pg (27.0-31.2); Mean Corpuscular Volume 80.1 fl (81-99); Nucleated Red Blood Cells % 0 %; Platelet Count 212 K/mm3 (142-424); Red Blood Count 4.48 M/mm3 (4.20-5.40); Red Cell Distribution Width-SD 47.1 fL; Total Protein,Serum 6.8 g/dl (6.3-8.2); White Blood Count 9.6 K/mm3 (4.8-10.8)
[2024-12-05 23:10] LABS: Calcium 8.1 mg/dl (8.4-10.2); Glucose 93 mg/dl (74-100)
[2024-12-05 23:31] LABS: Troponin I < 0.01 ng/ml (0.00-0.034)
[2024-12-06 00:07] VITALS: BP 139/84; PULSE 67; RESP 14; O2SAT 98
--- NOTE | 2024-12-06 00:26 | PC.NURSE ---
Report given to Mila MONET on med surg.
[2024-12-06 00:27] VITALS: BP 143/86; PULSE 64; RESP 16; TEMP 36.5; O2SAT 94; BMI 48.6
--- NOTE | 2024-12-06 00:28 | P.HP_ITS ---
<Statement entered by Maikel Almazan MD - 12/06/24 15:43> Personally evaluated patient and agree with the plan of care as outlined by the SMOKE ROOM OPERATOR. History of Present Illness *Admission Date: 12/06/24 *Reason for visit:: Abdominal pain *History of present illness: This is a 49-year-old female who has a past medical history significant for multiple thyroid nodules, diastolic dysfunction congestive heart failure, asthma, hyperlipidemia, hypertension, anxiety, hyperparathyroidism, elevated BNP, and anemia who presents with a chief complaint of right upper quadrant abdominal pain and right shoulder. Due to patient's symptoms, she presented to the emergency room for evaluation. While in the emergency room, CT scan of the abdomen and pelvis revealed a small centimeter area of mottled gas and fluid attenuation anterior to the gallbladder fossa presumably due to recent cholecystectomy. Patient was given IV pain medication and she continued to have persistent abdominal pain. As a result, hospital medicine was consulted for further management. During my evaluation of the patient, patient states she is status postcholecystectomy performed on 12/03/[address] Leos. Postoperatively, patient reports she was doing well. However, yesterday she started to experience a for symptomology. She does report having a bowel movement yesterday but her pain was unrelieved by the Percocet prescribed postoperatively. Patient reports no drainage from trocar sites; moreover, she denies any chest pain, lightheadedness, dizziness, fever, chills, rigors, nausea, vomiting, shortness of breath, dyspnea, or diarrhea. Additional pertinent values obtained include a hemoglobin 11.0, hematocrit 35.9, chloride of 110, calcium 8.1, and AST of 48. [facility] Disclaimer: The information contained in this section may have been updated after the patient was seen, as this information can be updated by other users. Medical History (Updated 12/06/24 @ 00:12 by Frandy Ramirez MD) Multiple thyroid nodules CHF (congestive heart failure) Asthma HLD (hyperlipidemia) HTN (hypertension) Anxiety Hyperparathyroidism Elevated brain natriuretic peptide (BNP) level Anemia Surgical History Status post fine needle aspiration History of hernia repair Family History Other Family history of acute congestive heart failure Family history of diabetes mellitus type II Family history of hyperlipidemia Family history of hypertension Social History (Updated 12/03/24 @ 15:29 by Shakir Dyer CRNA) Smoking Status: Never smoker alcohol intake: never substance use type: denies use current occupational status: other Travel in the last 8 weeks?: None household members: other housing: house current occupational exposures/hazards: No Have you lived/traveled outside [place] in past 30 days?: No Contact w/someone who lives/traveled outside US past 30 days?: No Exposure to someone with infectious disease in past 14 days?: No Do you have a fever (greater than 100.4 F or 38 C)?: No Have you tested positive for COVID-19?: No Exposed to someone with COVID-19 in past 14 days?: No Do you have a sore throat?: No Do you have a cough?: No Do you have any weakness?: No Do you have any diarrhea?: No Are you experiencing any unusual bleeding?: No Do you have any muscle aches/pain?: No Do you have any abdominal pain?: No Are you experiencing loss of taste or smell?: No Other Medical History Have you received the Flu Vaccine for this season: No Have you received the Pneumonia Vaccine: No Review of Systems Review of Systems Review of systems:: pertinent systems reviewed and negative unless documented below Constitutional Constitutional: Reports system reviewed and no additional complaints, except as documented Eyes Eyes: Reports system reviewed and no additional complaints, except as documented ENT Ears, Nose, Mouth, and Throat: Reports system reviewed and no additional complaints, except as documented *Cardiovascular Cardiovascular: Reports system reviewed and no additional complaints, except as documented *Respiratory Respiratory: Reports system reviewed and no additional complaints, except as documented *Gastrointestinal Gastrointestinal: Reports abdominal pain *Genitourinary Genitourinary: Reports system reviewed and no additional complaints, except as documented *Musculoskeletal Musculoskeletal: Reports system reviewed and no additional complaints, except as documented Integumentary/Breasts Skin/Breast: Reports system reviewed and no additional complaints, except as documented *Neurologic Neurologic: Reports system reviewed and no additional complaints, except as documented Psychiatric Psychiatric: Reports system reviewed and no additional complaints, except as documented Endocrine Endocrine: Reports system reviewed and no additional complaints, except as documented Hematologic/Lymphatic Hematologic/Lymphatic: Reports system reviewed and no additional complaints, except as documented Allergic/Immunologic Allergic/Immunologic: Reports system reviewed and no additional complaints, except as documented Meds Home Medications and Allergies Home Medications ?Medication ?Instructions ?Recorded ?Confirmed ?Type sertraline 100 mg tablet 200 mg PO DAILY Depression 1 05/27/17 12/03/24 History alprazolam 0.5 mg tablet 0.5 mg PO BIDP PRN Anxiety 0 09/14/19 12/03/24 History diclofenac sodium 50 mg 50 mg PO BID 06/16/23 History tablet,delayed release levothyroxine 75 mcg tablet 75 mcg PO DAILY 06/16/23 0 12/03/24 History metoprolol succinate 100 mg 100 mg PO DAILY Hypertensi on #90 09/06/24 12/03/24 Rx tablet,extended release 24 hr tabs albuterol sulfate 90 mcg/actuation 2 puff inhalation Q 4HP PRN SOA 11/20/24 12/03/24 History aerosol inhaler fluticasone propionate 50 1 spray intranasal DAILY 03/0612/03/24 History mcg/actuation nasal spray,suspension levocetirizine 5 mg tablet 5 mg PO DAILY #30 tabs 11/1012/03/24 Rx dapagliflozin propanediol 5 mg 5 mg PO DAILY 12/03/24 12/03/24 History tablet (Farxiga) rosuvastatin 5 mg tablet 5 mg PO HS 12/03/24 12/03/24 History oxycodone-acetaminophen 5 mg-325 1 tab PO Q6HP PRN Mod erate Pain 12/04/24 Rx mg tablet (4-6) 3 days #12 tabs simethicone 180 mg capsule 180 mg PO BID PRN bloating #10 caps 12/04/24 Rx New Prescriptions to Start Prescriptions: Allergies Allergy/AdvReac Type Severity Reaction Status Date / Time No Known Allergies Allergy Verified 11/20/24 11:06 Exam Data for Last 24 hours Vital signs and Labs for Last 24 Hours: Temp Pulse Resp BP Pulse Ox O2 Del Method 98.1 F 67 14 139/84 98 Room Air 12/05/24 22:41 12/06/24 00:07 12/06/24 00:07 12/06/24 00:07 12/06/24 00:07 12/06/24 00:07 Laboratory Results - last 24 hr 12/05/24 22:54: WBC 9.6, RBC 4.48, Hgb 11.0 L, Hct 35.9 L, MCV 80.1 L, MCH 24.6 L, MCHC 30.6 L, RDW 16.4, Plt Count 212, MPV 10.2, Neut % (Auto) 69.0, Lymph % (Auto) 21.5, [place] % (Auto) 6.3, Eos % (Auto) 2.3, Baso % (Auto) 0.5, Neut # (Auto) 6.6, Lymph # (Auto) 2.1, [place] # (Auto) 0.6, Eos # (Auto) 0.2, Baso # (Auto) 0.1, Sodium 139, Potassium 4.1, Chloride 110 H, Carbon Dioxide 22, Anion Gap 11.1, BUN 13, Creatinine 0.70, Estimated Creat Clear 181, Estimated GFR 89, Est GFR ( Amer) 108, Glucose 93, Calcium 8.1 L, Total Bilirubin 0.4, AST 48 H, ALT 35, Alkaline Phosphatase 62, Troponin I < 0.01, Total Protein 6.8, Albumin 3.9, Globulin 2.9, Albumin/Globulin Ratio 1.3, Lipase 73 I & O for Last 24 hours: Intake & Output 12/03/24 12/04/24 12/05/24 12/06/24 23:59 23:59 23:59 23:59 Weight 117.934 kg Constitutional Constitutional: no acute distress, morbidly obese and cooperative *Routine HEENT Exam Head: Present normocephalic and atraumatic Eye: Present EOMI ENT: Present mucous membranes moist *Routine Neck Exam Neck: Present supple, full ROM and trachea midline *Routine Respiratory Exam Respiratory: Present CTA bilaterally, normal respiratory effort, able to speak in complete sentences and symmetric chest movement *Routine Cardiovascular Exam Cardiovascular: Present RRR, Normal S1 and Normal S2 *Routine Abdominal Exam Abdominal: Present soft, normoactive bowel sounds and obese *Routine Rectal Exam Rectal:: deferred *Routine Genitalia Exam Genitalia:: deferred *Routine Extremities Exam Extremities: Present full ROM, pulses intact and normal capillary refill Routine Back/Spine/Pelvis Exam Back/Spine: Present full ROM *Routine Skin Exam Skin: Present intact, dry and normal turgor Comments: Noted for trocar sites well-approximated without any drainage *Routine Neurological Exam Neurological: Present alert, oriented X3, CN II-XII intact, moving all extremities and normal speech Routine Psychiatric Exam Psychiatric: Present normal affect, normal thought process, cooperative, good insight and good judgment H&P: Result Impressions This is a 49-year-old female who presents with intractable abdominal pain and is found to have a possible fluid collection/gas collection in close proximity to the gallbladder fossa. This may be a normal variant for postop patient's cholecystectomy. Assessment and Plan *Assessment and plan (1) Intra-abdominal fluid collection: Status: Acute Category: Medical Code(s): R18.8 - Other ascites (2) Postoperative abdominal pain: Status: Acute Category: Medical Code(s): R10.9 - Unspecified abdominal pain; G89.18 - Other acute postprocedural pain (3) Morbid obesity: Status: Acute Category: Medical Code(s): E66.01 - Morbid (severe) obesity due to excess calories Plan Assessment: Status post cholecystectomy: postop day 3 Post operative surgical complications 4 cm fluid collection/gas: Seen on imaging - Will consult surgery in the morning - Will keep patient n.p.o. until evaluated by surgeon - Trocar sites are well-approximated without any drainage - Currently there is no inflammatory changes seen on imaging nor is there elevation of patient's white blood cell count. I will hold off on antibiotics for now -Will obtain procalcitonin in the a.m. Intractable abdominal pain -0.5 mg of hydromorphone IV push every 4 hours for moderate to severe pain Plan: Admit patient to the MedSurg unit Activity as tolerated Incentive spirometer every 4 hours while awake CBC/BMP daily Lactated Ringer's at 75 mL an hour 40 mg Lovenox subcu daily for DVT prophylax 4 mg Zofran IV push every 8 hours. Nausea vomit 40 mg of Protonix IV push daily Full code I will discussed this case with attending physician Dr. Almazan and I look forward to more input
[2024-12-06 00:38] VITALS: BP 146/89; PULSE 74; RESP 14; TEMP 36.7; O2SAT 100
[2024-12-06] MEDS: LACTATED RINGERS 1000ML 1,000 ML 75 ML IV (01:20)
[2024-12-06] MEDS: HYDROMORPHONE 2MG/ML SYRINGE 0.5 MG IV ×2 (01:20→05:05)
[2024-12-06 02:23] LABS: Troponin I < 0.01 ng/ml (0.00-0.034)
[2024-12-06 04:00] VITALS: BP 143/89; PULSE 65; RESP 16; TEMP 36.4; O2SAT 94; BMI 48.4
[2024-12-06 06:47] LABS: Hematocrit 32.7 % (37.0-47.0); Hemoglobin 10.1 g/dL (12.2-16.2); Immature Granulocytes % 0.5 %; Mean Corpuscular HGB Conc 30.9 g/dL (31.8-35.4); Mean Corpuscular Hemoglobin 25.2 pg (27.0-31.2); Mean Corpuscular Volume 81.5 fl (81-99); Nucleated Red Blood Cells % 0 %; Platelet Count 186 K/mm3 (142-424); Red Blood Count 4.01 M/mm3 (4.20-5.40); Red Cell Distribution Width-SD 48.9 fL; White Blood Count 8.1 K/mm3 (4.8-10.8)
[2024-12-06 07:09] LABS: Troponin I < 0.01 ng/ml (0.00-0.034)
[2024-12-06 07:55] VITALS: BP 152/75; PULSE 57; RESP 16; TEMP 36.4; O2SAT 97
--- NOTE | 2024-12-06 08:12 | HMH.PHAINT1 ---
Pharmacy Intervention Comments: MEDICATION RECONCILIATION COMPLETED ON PATIENT USING EXTERNAL FILL HISTORY FROM PHARMACY AND DISCHARGE SUMMARY FROM PREVIOUS ADMISSION. -JB RATLIFF, KISHAD
[2024-12-06 08:20] LABS: Chloride 108 mmol/L (98-107); Potassium 3.7 mmoL/L (3.5-5.1); Sodium 140 mmol/L (136-145)
[2024-12-06 08:23] LABS: Anion Gap 8.7 mEq/L (5-15); Blood Urea Nitrogen 10 mg/dl (7-17); Carbon Dioxide 27 mmol/L (22.0-30.0); Creatinine Clearance Estimated 98 mL/min (50-200); Creatinine,Serum 0.70 mg/dl (0.52-1.04); Estimated Glomerular Filt Rate 89 ml/min (>60); GFR (African American) 108 ML/MIN (>60)
[2024-12-06 08:24] LABS: Calcium 7.9 mg/dl (8.4-10.2); Glucose 79 mg/dl (74-100)
[2024-12-06] MEDS: KETOROLAC 30MG/ML VIAL 30 MG IV ×2 (08:31→14:26)
--- NOTE | 2024-12-06 08:39 | P.CONS_ITS ---
History of Present Illness *Admission Date: 12/06/24 *Reason for visit:: Postoperative pain *History of present illness: This is a 49-year-old female seen in consultation after presenting to the emergency department with increasing epigastric/upper abdominal pain with radiation to the back. She is status post laparoscopic cholecystectomy on December 03, 2024 with subsequent discharge home the following day. No reported fevers. No jaundice. Forwarded from admission H&P: This is a 49-year-old female who has a past medical history significant for multiple thyroid nodules, diastolic dysfunction congestive heart failure, asthma, hyperlipidemia, hypertension, anxiety, hyperparathyroidism, elevated BNP, and anemia who presents with a chief complaint of right upper quadrant abdominal pain and right shoulder. Due to patient's symptoms, she presented to the emergency room for evaluation. While in the emergency room, CT scan of the abdomen and pelvis revealed a small centimeter area of mottled gas and fluid attenuation anterior to the gallbladder fossa presumably due to recent cholecystectomy. Patient was given IV pain medication and she continued to have persistent abdominal pain. As a result, hospital medicine was consulted for further management. During my evaluation of the patient, patient states she is status postcholecystectomy performed on 12/03/[address] Leos. Postoperatively, patient reports she was doing well. However, yesterday she started to experience a for symptomology. She does report having a bowel movement yesterday but her pain was unrelieved by the Percocet prescribed postoperatively. Patient reports no drainage from trocar sites; moreover, she denies any chest pain, lightheadedness, dizziness, fever, chills, rigors, nausea, vomiting, shortness of breath, dyspnea, or diarrhea. Additional pertinent values obtained include a hemoglobin 11.0, hematocrit 35.9, chloride of 110, calcium 8.1, and AST of 48. [facility] Disclaimer: The information contained in this section may have been updated after the patient was seen, as this information can be updated by other users. Medical History Multiple thyroid nodules CHF (congestive heart failure) Asthma HLD (hyperlipidemia) HTN (hypertension) Anxiety Hyperparathyroidism Elevated brain natriuretic peptide (BNP) level Anemia Surgical History Status post fine needle aspiration History of hernia repair Family History Other Family history of acute congestive heart failure Family history of diabetes mellitus type II Family history of hyperlipidemia Family history of hypertension Social History (Updated 12/06/24 @ 01:36 by Mila Novak RN) Smoking Status: Never smoker alcohol intake: never substance use type: denies use current occupational status: unemployed and other Travel in the last 8 weeks?: None household members: other housing: house current occupational exposures/hazards: No Have you lived/traveled outside [place] in past 30 days?: No Contact w/someone who lives/traveled outside [place] past 30 days?: No Exposure to someone with infectious disease in past 14 days?: No Do you have a fever (greater than 100.4 F or 38 C)?: No Have you tested positive for COVID-19?: No Exposed to someone with COVID-19 in past 14 days?: No Do you have a sore throat?: No Do you have a cough?: No Do you have any weakness?: No Do you have any diarrhea?: No Are you experiencing any unusual bleeding?: No Do you have any muscle aches/pain?: No Do you have any abdominal pain?: No Are you experiencing loss of taste or smell?: No Review of Systems Review of Systems Review of systems:: pertinent systems reviewed and negative unless documented below *Gastrointestinal Gastrointestinal: Reports as per HPI *Neurologic Neurologic: Reports system reviewed and no additional complaints, except as documented Meds Home Medications and Allergies Home Medications ?Medication ?Instructions ?Recorded ?Confirmed ?Type sertraline 100 mg tablet 200 mg PO DAILY Depression 1 05/27/17 12/06/24 History alprazolam 0.5 mg tablet 0.5 mg PO BIDP PRN Anxiety 0 09/14/19 12/06/24 History diclofenac sodium 50 mg 50 mg PO BIDP PRN Mild Pain (Scale 06/16/23 12/06/24 History tablet,delayed release Score 1-4) levothyroxine 75 mcg tablet 75 mcg PO DAILY 06/16/23 0 12/06/24 History albuterol sulfate 90 mcg/actuation 2 puff inhalation Q 4HP PRN 11/20/24 12/06/24 History aerosol inhaler Shortness Of Breath fluticasone propionate 50 1 spray intranasal DAILYP IA N 11/20/24 12/06/24 History mcg/actuation nasal Congestion spray,suspension levocetirizine 5 mg tablet 5 mg PO DAILY #30 tabs 11/1012/06/24 Rx dapagliflozin propanediol 5 mg 5 mg PO DAILY 12/03/24 12/06/24 History tablet (Farxiga) rosuvastatin 5 mg tablet 5 mg PO HS 12/03/24 12/06/24 History oxycodone-acetaminophen 5 mg-325 1 tab PO Q6HP PRN Mod erate Pain 12/04/24 12/06/24 Rx mg tablet (4-6) 3 days #12 tabs metoprolol succinate 100 mg 100 mg PO DAILY 12/06/24 0 12/06/24 History tablet,extended release 24 hr New Prescriptions to Start Prescriptions: Allergies Allergy/AdvReac Type Severity Reaction Status Date / Time No Known Allergies Allergy Verified 11/20/24 11:06 Exam (Inpt) Vital signs and Labs for Last 24 Hours: Temp Pulse Resp BP Pulse Ox O2 Del Method O2 Flow Rate 97.6 F 57 L 16 152/75 H 97 Room Air 2 12/06/24 07:55 12/06/24 07:55 12/06/24 07:55 12/06/24 07:55 12/06/24 07:55 12/06/24 07:55 12/06/24 03:00 Laboratory Results - last 24 hr 12/05/24 22:54: WBC 9.6, RBC 4.48, Hgb 11.0 L, Hct 35.9 L, MCV 80.1 L, MCH 24.6 L, MCHC 30.6 L, RDW 16.4, Plt Count 212, MPV 10.2, Neut % (Auto) 69.0, Lymph % (Auto) 21.5, [place] % (Auto) 6.3, Eos % (Auto) 2.3, Baso % (Auto) 0.5, Neut # (Auto) 6.6, Lymph # (Auto) 2.1, [place] # (Auto) 0.6, Eos # (Auto) 0.2, Baso # (Auto) 0.1, Sodium 139, Potassium 4.1, Chloride 110 H, Carbon Dioxide 22, Anion Gap 11.1, BUN 13, Creatinine 0.70, Estimated Creat Clear 181, Estimated GFR 89, Est GFR ( Amer) 108, Glucose 93, Calcium 8.1 L, Total Bilirubin 0.4, AST 48 H, ALT 35, Alkaline Phosphatase 62, Troponin I < 0.01, Total Protein 6.8, Albumin 3.9, Globulin 2.9, Albumin/Globulin Ratio 1.3, Lipase 73 12/06/24 01:40: Troponin I < 0.01 12/06/24 06:00: WBC 8.1, RBC 4.01 L, Hgb 10.1 L, Hct 32.7 L, MCV 81.5, MCH 25.2 L, MCHC 30.9 L, RDW 16.4, Plt Count 186, MPV 10.2, Neut % (Auto) 67.0, Lymph % (Auto) 23.3, [place] % (Auto) 6.4, Eos % (Auto) 2.6, Baso % (Auto) 0.2, Neut # (Auto) 5.4, Lymph # (Auto) 1.9, [place] # (Auto) 0.5, Eos # (Auto) 0.2, Baso # (Auto) 0.0, Sodium 140, Potassium 3.7, Chloride 108 H, Carbon Dioxide 27, Anion Gap 8.7, BUN 10, Creatinine 0.70, Estimated Creat Clear 98, Estimated GFR 89, Est GFR ( Amer) 108, Glucose 79, Calcium 7.9 L, Troponin I < 0.01 I & O for Labs for Last 24 Hours: Intake & Output 12/03/24 12/04/24 12/05/24 12/06/24 11:59 11:59 11:59 11:59 Output Total 0 / 0 Balance 0 / 0 Weight 320 lb Results Labs 12/06/24 06:00 12/06/24 06:00 Labs: Laboratory Results - last 24 hr 12/05/24 22:54: WBC 9.6, RBC 4.48, Hgb 11.0 L, Hct 35.9 L, MCV 80.1 L, MCH 24.6 L, MCHC 30.6 L, RDW 16.4, Plt Count 212, MPV 10.2, Neut % (Auto) 69.0, Lymph % (Auto) 21.5, [place] % (Auto) 6.3, Eos % (Auto) 2.3, Baso % (Auto) 0.5, Neut # (Auto) 6.6, Lymph # (Auto) 2.1, [place] # (Auto) 0.6, Eos # (Auto) 0.2, Baso # (Auto) 0.1, Sodium 139, Potassium 4.1, Chloride 110 H, Carbon Dioxide 22, Anion Gap 11.1, BUN 13, Creatinine 0.70, Estimated Creat Clear 181, Estimated GFR 89, Est GFR ( Amer) 108, Glucose 93, Calcium 8.1 L, Total Bilirubin 0.4, AST 48 H, ALT 35, Alkaline Phosphatase 62, Troponin I < 0.01, Total Protein 6.8, Albumin 3.9, Globulin 2.9, Albumin/Globulin Ratio 1.3, Lipase 73 12/06/24 01:40: Troponin I < 0.01 12/06/24 06:00: WBC 8.1, RBC 4.01 L, Hgb 10.1 L, Hct 32.7 L, MCV 81.5, MCH 25.2 L, MCHC 30.9 L, RDW 16.4, Plt Count 186, MPV 10.2, Neut % (Auto) 67.0, Lymph % (Auto) 23.3, [place] % (Auto) 6.4, Eos % (Auto) 2.6, Baso % (Auto) 0.2, Neut # (Auto) 5.4, Lymph # (Auto) 1.9, [place] # (Auto) 0.5, Eos # (Auto) 0.2, Baso # (Auto) 0.0, Sodium 140, Potassium 3.7, Chloride 108 H, Carbon Dioxide 27, Anion Gap 8.7, BUN 10, Creatinine 0.70, Estimated Creat Clear 98, Estimated GFR 89, Est GFR ( Amer) 108, Glucose 79, Calcium 7.9 L, Troponin I < 0.[address] scan - abdomen: report reviewed and image reviewed CT scan - pelvis: report reviewed and image reviewed Assessment and Plan *Assessment and plan (1) Intra-abdominal fluid collection: Status: Acute Category: Medical Code(s): R18.8 - Other ascites Plan: Not unexpected given that she was ~2 days status post laparoscopic cholecystectomy at time of CT scan. (2) Postoperative abdominal pain: Status: Acute Category: Medical Code(s): R10.9 - Unspecified abdominal pain; G89.18 - Other acute postprocedural pain Plan: Most likely secondary to inflammatory response with concomitant diaphragmatic involvement Overall management as per primary service Toradol as per primary service
--- NOTE | 2024-12-06 13:30 | P.DS_ITS ---
General Admission date:: 12/06/24 HPI HPI HPI: This is a 49-year-old female seen in consultation after presenting to the emergency department with increasing epigastric/upper abdominal pain with radiation to the back. She is status post laparoscopic cholecystectomy on December 03, 2024 with subsequent discharge home the following day. No reported fevers. No jaundice. Forwarded from admission H&P: This is a 49-year-old female who has a past medical history significant for multiple thyroid nodules, diastolic dysfunction congestive heart failure, asthma, hyperlipidemia, hypertension, anxiety, hyperparathyroidism, elevated BNP, and anemia who presents with a chief complaint of right upper quadrant abdominal pain and right shoulder. Due to patient's symptoms, she presented to the emergency room for evaluation. While in the emergency room, CT scan of the abdomen and pelvis revealed a small centimeter area of mottled gas and fluid attenuation anterior to the gallbladder fossa presumably due to recent cholecystectomy. Patient was given IV pain medication and she continued to have persistent abdominal pain. As a result, hospital medicine was consulted for further management. During my evaluation of the patient, patient states she is status postcholecystectomy performed on 12/03/[address] Leos. Postoperatively, patient reports she was doing well. However, yesterday she started to experience a for symptomology. She does report having a bowel movement yesterday but her pain was unrelieved by the Percocet prescribed postoperatively. Patient reports no drainage from trocar sites; moreover, she denies any chest pain, lightheadedness, dizziness, fever, chills, rigors, nausea, vomiting, shortness of breath, dyspnea, or diarrhea. Additional pertinent values obtained include a hemoglobin 11.0, hematocrit 35.9, chloride of 110, calcium 8.1, and AST of 48. Hospital Course Hospital Course Hospital Course: María Liriano is a 49-year-old female who presented with abdominal pain after laparoscopic cholecystectomy 2 days ago and was admitted CT findings of gas, fluid around gallbladder fossa. #Abdominal pain #Recent laparoscopic cholecystectomy ? Patient underwent an uneventful laparoscopic cholecystectomy on 12/04/2024. Patient tolerated p.o. intake well without issues. ? Returned with abdominal pain, CT abdomen/pelvis shows small 4 cm area of mottled gas and fluid attenuation anterior to the gallbladder fossa. WBC normal, no signs of sepsis. ? General Surgery consulted, advised some fluid and gas can be expected after lap divya. Recommended Toradol for pain control, inflammation. No indication for intervention. ? Symptoms significantly improved after IV Toradol, patient feeling much better. Tolerating p.o. intake, having bowel movements. ? Discharged with meloxicam 7.5 mg twice daily as needed for pain control, continue home Percocet as needed. ? Follow-up with general surgery within 1 week. #Hypothyroidism ? Continue home levothyroxine 75 mcg. #Hypertension ? Continue home medications. Total time spent on discharge: 31 minutes on chart review, counseling, documentation, and direct care with patient. Exam Data for Last 24 hours Vital signs and Labs for Last 24 Hours: Temp Pulse Resp BP Pulse Ox O2 Del Method O2 Flow Rate 97.6 F 57 L 16 152/75 H 97 Room Air 2 12/06/24 07:55 12/06/24 07:55 12/06/24 07:55 12/06/24 07:55 12/06/24 07:55 12/06/24 13:00 12/06/24 03:00 Laboratory Results - last 24 hr 12/05/24 22:54: WBC 9.6, RBC 4.48, Hgb 11.0 L, Hct 35.9 L, MCV 80.1 L, MCH 24.6 L, MCHC 30.6 L, RDW 16.4, Plt Count 212, MPV 10.2, Neut % (Auto) 69.0, Lymph % (Auto) 21.5, Emanuel % (Auto) 6.3, Eos % (Auto) 2.3, Baso % (Auto) 0.5, Neut # (Auto) 6.6, Lymph # (Auto) 2.1, Emanuel # (Auto) 0.6, Eos # (Auto) 0.2, Baso # (Auto) 0.1, Sodium 139, Potassium 4.1, Chloride 110 H, Carbon Dioxide 22, Anion Gap 11.1, BUN 13, Creatinine 0.70, Estimated Creat Clear 181, Estimated GFR 89, Est GFR ( Amer) 108, Glucose 93, Calcium 8.1 L, Total Bilirubin 0.4, AST 48 H, ALT 35, Alkaline Phosphatase 62, Troponin I < 0.01, Total Protein 6.8, Albumin 3.9, Globulin 2.9, Albumin/Globulin Ratio 1.3, Lipase 73 12/06/24 01:40: Troponin I < 0.01 12/06/24 06:00: WBC 8.1, RBC 4.01 L, Hgb 10.1 L, Hct 32.7 L, MCV 81.5, MCH 25.2 L, MCHC 30.9 L, RDW 16.4, Plt Count 186, MPV 10.2, Neut % (Auto) 67.0, Lymph % (Auto) 23.3, Emanuel % (Auto) 6.4, Eos % (Auto) 2.6, Baso % (Auto) 0.2, Neut # (Auto) 5.4, Lymph # (Auto) 1.9, Emanuel # (Auto) 0.5, Eos # (Auto) 0.2, Baso # (Auto) 0.0, Sodium 140, Potassium 3.7, Chloride 108 H, Carbon Dioxide 27, Anion Gap 8.7, BUN 10, Creatinine 0.70, Estimated Creat Clear 98, Estimated GFR 89, Est GFR ( Amer) 108, Glucose 79, Calcium 7.9 L, Troponin I < 0.01 I & O for Last 24 hours: Intake & Output 12/03/24 12/04/24 12/05/24 12/06/24 23:59 23:59 23:59 23:59 Intake Total 1095 / 1095 Output Total 0 / 0 Balance 1095 / 1095 Weight 117.934 kg 145.15 kg Constitutional Constitutional: no acute distress and obese *Routine HEENT Exam Head: Present normocephalic Eye: Present EOMI and PERRL ENT: Present mucous membranes moist *Routine Neck Exam Neck: Present supple; Absent lymphadenopathy *Routine Respiratory Exam Respiratory: Present CTA bilaterally *Routine Cardiovascular Exam Cardiovascular: Present RRR *Routine Abdominal Exam Abdominal: Present soft, normoactive bowel sounds and tenderness Comments: Mild tenderness to palpation in epigastric, right upper quadrant region. No peritoneal signs. Initial incision sites clean dry and intact. *Routine Extremities Exam Extremities: Absent cyanosis, clubbing or edema *Routine Skin Exam Skin: Present warm; Absent rash *Routine Neurological Exam Neurological: Present alert and oriented X3 Results Data Completed and Pending Labs on day of discharge: Labs from last 24 hours 12/06/24 12/06/24 12/05/24 06:00 01:40 22:54 WBC 8.1 9.6 RBC 4.01 L 4.48 Hgb 10.1 L 11.0 L Hct 32.7 L 35.9 L MCV 81.5 80.1 L MCH 25.2 L 24.6 L MCHC 30.9 L 30.6 L RDW 16.4 16.4 Plt Count 186 212 MPV 10.2 10.2 Neut % (Auto) 67.0 69.0 Lymph % (Auto) 23.3 21.5 Emanuel % (Auto) 6.4 6.3 Eos % (Auto) 2.6 2.3 Baso % (Auto) 0.2 0.5 Neut # (Auto) 5.4 6.6 Lymph # (Auto) 1.9 2.1 Emanuel # (Auto) 0.5 0.6 Eos # (Auto) 0.2 0.2 Baso # (Auto) 0.0 0.1 Sodium 140 139 Potassium 3.7 4.1 Chloride 108 H 110 H Carbon Dioxide 27 22 Anion Gap 8.7 11.1 BUN 10 13 Creatinine 0.70 0.70 Estimated Creat Clear 98 181 Estimated GFR 89 89 Est GFR ( Amer) 108 108 Glucose 79 93 Calcium 7.9 L 8.1 L Total Bilirubin 0.4 AST 48 H ALT 35 Alkaline Phosphatase 62 Troponin I < 0.01 < 0.01 < 0.01 Total Protein 6.8 Albumin 3.9 Globulin 2.9 Albumin/Globulin Ratio 1.3 Lipase 73 DS: Diagnosis Discharge Diagnosis (1) Intra-abdominal fluid collection: Status: Acute Code(s): R18.8 - Other ascites (2) Postoperative abdominal pain: Status: Acute Code(s): R10.9 - Unspecified abdominal pain; G89.18 - Other acute postprocedural pain Meds Home Medications and Allergies Home Medications ?Medication ?Instructions ?Recorded ?Confirmed ?Type sertraline 100 mg tablet 200 mg PO DAILY Depression 1 05/27/17 12/06/24 History alprazolam 0.5 mg tablet 0.5 mg PO BIDP PRN Anxiety 0 09/14/19 12/06/24 History levothyroxine 75 mcg tablet 75 mcg PO DAILY 06/16/23 0 12/06/24 History albuterol sulfate 90 mcg/actuation 2 puff inhalation Q 4HP PRN 11/20/24 12/06/24 History aerosol inhaler Shortness Of Breath fluticasone propionate 50 1 spray intranasal DAILYP GA N 11/20/24 12/06/24 History mcg/actuation nasal Congestion spray,suspension levocetirizine 5 mg tablet 5 mg PO DAILY #30 tabs 11/1012/06/24 Rx dapagliflozin propanediol 5 mg 5 mg PO DAILY 12/03/24 12/06/24 History tablet (Farxiga) rosuvastatin 5 mg tablet 5 mg PO HS 12/03/24 12/06/24 History oxycodone-acetaminophen 5 mg-325 1 tab PO Q6HP PRN Mod erate Pain 12/04/24 12/06/24 Rx mg tablet (4-6) 3 days #12 tabs meloxicam 7.5 mg tablet 7.5 mg PO BID PRN pain 7 day s #14 12/06/24 Rx tabs metoprolol succinate 100 mg 100 mg PO DAILY 12/06/24 0 12/06/24 History tablet,extended release 24 hr New Prescriptions to Start Prescriptions: Maikel Harvey Allergies Allergy/AdvReac Type Severity Reaction Status Date / Time No Known Allergies Allergy Verified 11/20/24 11:06 Discharge Plan Disposition Patient Disposition: Home, Self-Care Condition: Fair Follow up Plan Follow up with: Keo Kay MD [Staff Physician, General Surgery] - 12/13/24 2:00 pm Prescriptions/Medication Reconciliation: New meloxicam 7.5 mg tablet 7.5 mg PO BID PRN (Reason: pain) 7 Days Qty: 14 0RF Continued levothyroxine 75 mcg tablet 75 mcg PO DAILY Patient Comments: TAKE 1 TABLET BY MOUTH DAILY albuterol sulfate 90 mcg/actuation HFA aerosol inhaler 2 puff inhalation Q4HP PRN (Reason: Shortness Of Breath) Patient Comments: INHALE 2 PUFFS INTO THE LUNGS EVERY 4 HOURS NEEDED FOR WHEEZING fluticasone propionate 50 mcg/actuation spray,suspension 1 spray intranasal DAILYP PRN (Reason: Congestion) Patient Comments: SHAKE LIQUID AND USE 1 SPRAY IN EACH NOSTRIL DAILY levocetirizine 5 mg tablet 5 mg PO DAILY Qty: 30 3RF alprazolam 0.5 MG tablet 0.5 mg PO BIDP PRN (Reason: Anxiety) sertraline 100 MG tablet 200 mg PO DAILY dapagliflozin propanediol [Farxiga] 5 mg tablet 5 mg PO DAILY rosuvastatin 5 mg tablet 5 mg PO HS oxycodone-acetaminophen 5-325 mg Tablet 1 tab PO Q6HP PRN (Reason: Moderate Pain (4-6)) 3 Days Qty: 12 0RF metoprolol succinate 100 mg tablet extended release 24 hr 100 mg PO DAILY Discontinued diclofenac sodium 50 mg tablet,delayed release (DR/EC) 50 mg PO BIDP PRN (Reason: Mild Pain (Scale Score 1-4)) Patient Comments: TAKE 1 TABLET BY MOUTH TWICE DAILY WITH FOOD NEEDED FOR PAIN Problem Reconciliation Problems Reviewed?: Yes Patient Discharge Instructions Patient Instructions: DI for Postoperative Pain Print Language: Algerian Providers Primary Care Provider: Provider,Referral Admit Provider: Maikel Almazan Attending Provider: Maikel Almazan
[2024-12-06 17:55] LABS: Procalcitonin 0.034 ng/mL (0.0-2.0)
--- NOTE | 2024-12-07 15:08 | SW/DCPLANNER ---
Spoke with patient on the phone. Patient stated that she is in pain. Patient stated that she is aware of her upcoming appointments. Patient stated that she was able to get her medicine picked up. Patient stated that she is having cold chills and sweating and didnt know if that was normal. I transferred patient down to surgery suite and let her speak to them. Patient stated that she has no other concerns or questions at this time. Kym Ortiz
== END 2024-12-06 14:41 | disposition home or self-care (01) ==
LOC: ER 12-06 00:12 → 2ND 12-06 00:16
PROVIDERS: Nurse Practitioner Family; Admitting Provider Student in an Organized Health Care Education/Training Program; Emergency Provider Student in an Organized Health Care Education/Training Program; Visit Provider Student in an Organized Health Care Education/Training Program
DX: R18.8 Other ascites (principal); R10.9 Unspecified abdominal pain; G89.18 Other acute postprocedural pain; E66.01 Morbid (severe) obesity due to excess calories; I11.0 Hypertensive heart disease with heart failure; I50.9 Heart failure, unspecified; E78.5 Hyperlipidemia, unspecified; F41.9 Anxiety disorder, unspecified; J45.909 Unspecified asthma, uncomplicated; E03.9 Hypothyroidism, unspecified; Z68.42 Body mass index [BMI] 45.0-49.9, adult; Z90.49 Acquired absence of other specified parts of digestive tract; Z79.890 Hormone replacement therapy; Z79.899 Other long term (current) drug therapy; Z79.51 Long term (current) use of inhaled steroids
CPT/HCPCS: 36415; 71275; 74177; 80048; 80053; 83690; 84145; 84484; 85025; 93005; 96361; 96372; 96374; 96375; 96376; 99284; G0378; J1171; J1650; J1885; J2270; J2405; J7120; Q9967

== ENCOUNTER 2024-12-07 19:16 | Observation (INO) | payer MEDICARE, OTHER, SELFPAY ==
--- OUTSIDE RECORDS SUMMARY | 2024-11-10 14:45 | XMS_ITS | Encounter Summary ---
Author Organization [place] [address] Care Team Providers Care Otc Clerk Name Role Phone Nayely, Mónica FILI Primary Care Provider [phone] Reason for Visit * Reason Comments Follow-up Needs blood work Medication Refill Encounter Details Date Type Department Care Team (Late st Contact Info) Description 11/10/2024 2:45 PM EDT Office Visit [facility] [place] [address] [place] [phone] Mariusz Junior MD [address] [place] [address] Iron deficiency anemia secondary to inadequate [...] Assessment Author No 08/18/2023 9:51 AM Kannan Gimeenz CCMA * Does this person have serious [...] Date fluticasone propionate (FLONASE) 50 mcg/actuation Nasl [place], SuspensionIndicatio ns:Seasonal allergic rhinitis, unspecified trigger 1 [place] by Nasal route daily. 1 Each 2 [...] Orders: fluticasone propionate (FLONASE) 50 mcg/actuation Nasl [place], Suspension; 1 [place] by Nasal route daily. Chronic fatigue Orders: [...] - 65.00 pg/mL 11/10/2024 10:07 PM EDT [facility] Blood VENOUS BLOOD / Unknown Venipuncture / Unknown 11/10/2024 3:17 PM EDT 11/10/2024 3:17 PM EDT Narrative [facility] - 11/10/2024 10:07 PM EDT Intact [...] Mónica Adler APRN CHEMISTRY ORDERABLES Final Result [facility] [address] [facility] , [place] [address] * VITAMIN B12/ FOLIC ACID (11/10/2024 3:17 PM EDT) Vitamin B12 323 232 - 1,245 pg/mL 11/10/2024 9:59 PM EDT [facility] Folate 12.90 >=4.80 ng/mL 11/10/2024 9:59 PM EDT [facility] Blood VENOUS BLOOD / Unknown Venipuncture / Unknown 11/10/2024 3:17 PM EDT 11/10/2024 3:17 PM EDT Narrative [email or web address] - 11/10/2024 9:59 PM EDT Ingestion of inez doses of biotin (>5 mg/day) taken within 8 hours of drawing blood sample can interfere with this immunoassay test. Mariusz Junior MD CHEMISTRY ORDERABLES Final Res ult Performing Organization Address [facility] de Phone Number [facility] [address] , [place] [address] * TSH REFLEX TO FT4 (11/10/2024 3:17 PM EDT) TSH Reflex 1.040 0.270 - 4.200 mcIU/mL 11/10/2024 10:26 PM EDT [facility], [facility] Blood VENOUS BLOOD / Unknown Venipuncture / Unknown 11/10/2024 3:17 PM EDT 11/10/2024 3:17 PM EDT Narrative [facility], [facility] - 11/10/2024 10:26 PM EDT Ingestion of inez doses of biotin (>5 mg/day) taken within 8 hours of drawing blood sample can interfere with this immunoassay test. Mariusz Junior MD CHEMISTRY ORDERABLES Final Res ult Performing Organization Address [facility] Phone Number [facility] [address] , [place] [address] * BASIC METABOLIC PANEL (11/10/2024 3:17 PM EDT) Sodium 137 136 - 145 mmol/L 11/10/2024 10:26 PM EDT [facility] Potassium 4.0 3.5 - 5.0 mmol/L 11/10/2024 10:26 PM EDT [facility] Chloride 100 98 - 107 mmol/L 11/10/2024 10:26 PM EDT [facility], [facility] Total CO2 24 22 - 29 mmol/L 11/10/2024 10:26 PM EDT [facility] Anion Gap 13 7 - 16 mmol/L 11/10/2024 10:26 PM EDT [facility] Calcium 9.3 8.6 - 10.4 mg/dL 11/10/2024 10:26 PM EDT [facility] Glucose Lvl 90 70 - 99 mg/dL 11/10/2024 10:26 PM EDT [facility] BUN 15 6 - 20 mg/dL 11/10/2024 10:26 PM EDT [facility] Creatinine 0.72 0.51 - 1.30 mg/dL 11/10/2024 10:26 PM EDT [facility] eGFR (CKD-EPIcr 2020) 102 >=60 mL/min/1.7 3 m2 11/10/2024 10:26 PM EDT [facility] Comment:Estimated GFR was ca lculated using the CKD-EPIcr (2020) equation refit without race. The equation is recommended by the National Kidney Foundation - [place] [employer] Nephrology Task Force. Blood VENOUS BLOOD / Unknown Venipuncture / Unknown 11/10/2024 3:17 PM EDT 11/10/2024 3:17 PM EDT Mariusz Junior MD CHEMISTRY ORDERABLES Final Res ult [facility] [address] [facility] , [place] [address] * HEMOGLOBIN A1C (11/10/2024 3:17 PM EDT) [facility] Signature Hgb A1C 5.5 4.2 - 5.6 % 11/10/2024 9:54 PM EDT [facility] Est. Avg Glucose 111 mg/dL 11/10/2024 9:54 PM EDT [facility] Blood VENOUS BLOOD / Unknown Venipuncture / Unknown 11/10/2024 3:17 PM EDT 11/10/2024 3:17 PM EDT Narrative [facility] - 11/10/2024 9:54 PM EDT REFERENCE [...] Res ult [facility] [address] [facility] , [address] [place], [place] [id number] * (ABNORMAL) CBC WITH DIFF (11/10/2024 3:17 [...] % 11/10/2024 9:29 PM EDT [facility], [facility] [place] Percent 4.9 % 11/10/2024 9:29 PM EDT [facility], [facility] Eos Percent 2.0 % 11/10/2024 9:29 PM EDT [facility], [facility] Baso Percent 0.5 % 11/10/2024 9:29 PM EDT [facility], [facility] Neut # 7.0(H) 1.6 - 6.1 x10(3)/[facility] 11/10/2024 9:29 PM EDT [facility], [facility] Comment:Neutrophils equals s egs plus bands IMMGRAN# 0.1 0.0 - 0.1 x10(3)/[facility] 11/10/2024 9:29 PM EDT [facility], [facility] Comment:Automated count of m etamyelocytes, myelocytes and promyelocytes. An absolute IG <0.1 is reported as 0.0. Lymph # 1.7 1.2 - 3.9 x10(3)/[facility] 11/10/2024 9:29 PM EDT [facility], [facility] [place] # 0.5 0.3 - 0.9 x10(3)/[facility] 11/10/2024 9:29 PM EDT [facility], [facility] Eos# 0.2 0.0 - 0.5 x10(3)/mcL 11/10/2024 9:29 PM EDT [facility], [facility] Baso # 0.1 0.0 - 0.1 x10(3)/[facility] 11/10/2024 9:29 PM EDT [facility], [facility] Blood VENOUS BLOOD / Unknown Venipuncture / Unknown 11/10/2024 3:17 PM EDT 11/10/2024 3:17 PM EDT us Mariusz Junior MD HEMATOLOGY ORDERABLES Final Re sult [facility], [facility] [address] [facility] , [place] [address] * (ABNORMAL) IRON+TIBC (11/10/2024 3:17 PM EDT) Iron 47 30 - 160 mcg/dL 11/10/2024 10:26 PM EDT [facility], [facility] Transferrin 217 200 - 360 mg/dL 11/10/2024 10:26 PM EDT [facility], [facility] Transferrin Saturation 15(L) 20 - 50 % 11/10/2024 10:26 PM EDT [facility], [facility] TIBC 304 250 - 400 mcg/dL 11/10/2024 10:26 PM EDT [facility], [facility] Blood VENOUS BLOOD / Unknown Venipuncture / Unknown 11/10/2024 3:17 PM EDT 11/10/2024 3:17 PM EDT us Mariusz Junior MD CHEMISTRY ORDERABLES Final Res ult [facility], [facility] [address] [facility] , [place] [address] documented in this encounter Visit [...] documented as of this encounter Care Teams Otc Clerk Relationship Specialty Start Date End Date Mónica Adler APRN [address] [place] [address] PCP - General Nurse Practitioner-Family 12/08/16 documented as of this encounter
[2024-12-07] VITALS (9 sets, daily range): BP systolic 129–159; BP diastolic 61–80; PULSE 81–94; RESP 16–18; TEMP 36.7–37.3; O2SAT 91–98; BMI 39.5
--- OUTSIDE RECORDS SUMMARY | 2024-12-07 19:40 | XMS_ITS | Encounter Summary ---
Author [place] [address] Care Team Providers Care Cryptologic Technician Technical Name Role Phone Mónica Adler APRN Primary Care Provider [phone] Encounter Details Date Type Department Care Team (Late st Contact Info) Description 11/13/2024 Results Follow-Up [facility] [place] [address] [place] [address] Mariusz Junior MD [address] [place] [address] IRON+TIBC, CBC WITH DIFF, HEMOGLOBIN A1C, [...] documented as of this encounter Care Teams Cryptologic Technician Technical Relationship Specialty Start Date End Date Mónica Adler APRN [address] [place] [address] PCP - General Nurse Practitioner-Family 12/08/16 documented as of this encounter
--- OUTSIDE RECORDS SUMMARY | 2024-12-07 19:40 | XMS_ITS | Encounter Summary ---
Author Organization [place] [address] Care Team Providers Care Director Of Recruiting Name Role Phone Mónica Adler APRN Primary Care Provider [phone] Reason for Visit * Reason Comments Medication Refill Encounter Details Date Type Department Care Team (Late st Contact Info) Description 10/27/2024 Refill [facility] [address] [place] [address] Mónica Adler APRN [address] [place] [address] Medication Refill Social History Tobacco Use Types [...] and sent to requesting pharmacy. Routed to [facility] if an appointment is needed. documented [...] documented as of this encounter Care Teams Director Of Recruiting Relationship Specialty Start Date End Date Mónica Adler APRN [address] [place], [place] [id number] PCP - General Nurse Practitioner-Family 12/08/16 documented as of this encounter
--- OUTSIDE RECORDS SUMMARY | 2024-12-07 19:40 | XMS_ITS | Encounter Summary ---
Author Organization [place] [address] Care Team Providers Care Finisher Card Tender Name Role Phone Mónica Adler APRN Primary Care Provider [phone] Reason for Visit * Reason Onset Date Comments Medication Refill 11/09/2024 Encounter Details Date Type Department Care Team (Late st Contact Info) Description 11/09/2024 Refill [facility] [address] [place] [phone] Mónica Adler APRN [address] [facility] [place] [address] Medication Refill Social [...] an ideal body weight General No Mohini Mnediola, RMA documented as of this encounter Visit Diagnoses Diagnosis Essential hypertension Unspecified essential hypertension documented in this encounter Discontinued Medications Medication Sig Discontinue Reason Start Date End Da te metoprolol succinate ER (TOPROL-XL) 100 mg Oral Tablet Sustained Release 24 hrIndications:Essential hypertension TAKE 1 TABLET BY MOUTH EVERY DAY Reorder 10/25/2023 11/09/2024 documented as of this encounter Care Teams Finisher Card Tender Relationship Specialty Start Date End Date Mónica Adler [place] [address] [place] [address] PCP - General Nurse Practitioner-Family 12/08/16 documented as of this encounter
--- OUTSIDE RECORDS SUMMARY | 2024-12-07 19:40 | XMS_ITS | Encounter Summary ---
Author Organization [place] [address] Care Team Providers Care Interventional Physician Name Role Phone Mónica Adler APRN Primary Care Provider [phone] Reason for Visit * Reason Onset Date Comments Medication Refill 10/30/2024 Encounter Details Date Type Department Care Team (Late st Contact Info) Description 10/30/2024 Refill [facility] [address] [place] [phone] Móniac Adler APRN [address] [facility] [place] [address] Medication Refill Social [...] documented as of this encounter Care Teams Interventional Physician Relationship Specialty Start Date End Date Mónica Adler APRN [address] [place] [address] PCP - General Nurse Practitioner-Family 12/08/16 documented as of this encounter
--- OUTSIDE RECORDS SUMMARY | 2024-12-07 19:40 | XMS_ITS | Encounter Summary ---
Author Organization [place] [address] Care Team Providers Care Warp Knitting Machine Operator Name Role Phone Mónica Adler APRN Primary Care Provider [phone] Encounter Details Date Type Department Care Team (Late st Contact Info) Description 10/27/2024 Orders Only [facility] [address] [place] [address] Chandrika Zimmerman CCMA ISAAC (obstructive sleep [...] Hypoxemia documented in this encounter Care Teams Warp Knitting Machine Operator Relationship Specialty Start Date End Date Mónica Adler APRN [address] [place], [place] [address] PCP - General Nurse Practitioner-Family 12/08/16 documented as of this encounter
--- OUTSIDE RECORDS SUMMARY | 2024-12-07 19:41 | XMS_ITS | Encounter Summary ---
Author Organization [place] [address] Care Team Providers Care Ranch Helper Name Role Phone Mónica Adler APRN Primary Care Provider [phone] Reason for Visit * Reason Onset Date Comments Referral 10/09/2024 [facility] Slee p called requesting add'l info on patient in order to schedule there - please advise Encounter Details Date Type Department Care Team (Late Contact Info) Description 10/09/2024 Telephone [facility] [address] [place] [address] Mónica Adler APRN [address] [place] [address] Referral ([facility] Sleep called requesting [...] way 0 11/10/2024 2:50 PM EDT Giovanna Kna RMA PHQ-9 Total Score 11 11/10/2024 2:50 [...] Nelson MA - 10/09/2024 3:30 PM EDT GRAIMA, she is seeing you on 10/11 * Telephone Encounter - Tiffanie Esposito - 10/09/2024 3:22 PM EDT Select the most appropriate reason for this telephone message: Referral Request Who is requesting the referral: Other [facility] Neurology [facility] Sleep What type of referral: REF99 - AMB REFERRAL TO SLEEP STUDIES/MEDICINE none 1 1 [id number] (CPT??) - [place] OFFICE/OUTPATIENT NEW MODERATE MDM 45 MINUTES none What is the reason / diagnosis for this referral:R29.818 (ICD-10-CM) - 781.99 (ICD-9-CM) - Suspected sleep apnea Have you been seen by your PCP for this issue: Yes Does patient have a preference on a group/provider: Yes (if yes, complete preferred provider info below) Preferred Provider/Group Name: [facility] Neurology and Sleep Preferred Provider/Group Preferred Provider/Group [...] on filedocumented in this encounter Care Teams Ranch Helper Relationship Specialty Start Date End Date Mónica Adler [place] [address] [place] [address] PCP - General Nurse Practitioner-Family 12/08/16 documented as of this encounter
--- OUTSIDE RECORDS SUMMARY | 2024-12-07 19:41 | XMS_ITS | Encounter Summary ---
Author Organization [place] [address] Care Team Providers Care Coat Tailor Name Role Phone Mónica Adler CAGE CASHIER Primary Care Provider [phone] Reason for Visit * Reason Onset Date Comments Medication Refill 10/10/2024 Encounter Details Date Type Department Care Team (Late st Contact Info) Description 10/10/2024 Refill [facility] [address] [place] [phone] Mariusz Junior MD [address] [place] [address] [place] [address] Medication Refill Social History Tobacco Use Types [...] documented as of this encounter Care Teams Coat Tailor Relationship Specialty Start Date End Date Mónica Adler APRN [address] [place], [place] [address] PCP - General Nurse Practitioner-Family 12/08/16 documented as of this encounter
--- OUTSIDE RECORDS SUMMARY | 2024-12-07 19:41 | XMS_ITS | Encounter Summary ---
Author Organization [place] [address] Care Team Providers Care Liquor Gallery Operator Name Role Phone Mónica Adler APRN Primary Care Provider [phone] Reason for Visit * Reason Onset Date Comments Medication Refill 10/10/2024 Encounter Details Date Type Department Care Team (Late st Contact Info) Description 10/10/2024 Refill [facility] [address] [place] [phone] Mónica Adler APRN [address] [facility] [address] Medication Refill Social History Tobacco Use [...] documented as of this encounter Care Teams Liquor Gallery Operator Relationship Specialty Start Date End Date Mónica Adler APRN [address] [place] [address] PCP - General Nurse Practitioner-Family 12/08/16 documented as of this encounter
--- OUTSIDE RECORDS SUMMARY | 2024-12-07 19:41 | XMS_ITS | Clinical Summary ---
Author Organization [facility] Address [address] [place], [place] [address] Phone Care Team Providers Care Media Marketing Coordinator Name Role Phone Mónica Adler FILI Primary [...] Active fluticasone propionate (FLONASE) 50 mcg/actuation Nasl [place], SuspensionIndica tions:Seasonal allergic rhinitis, unspecified trigger 1 [place] by Nasal route daily. 1 Each 2 [...] Overview (10/22/2023): Followed by spine clinic at [facility] Assessment & Plan (10/22/2023 4:49 PM [...] AM EST): Try to get results from [facility] - states she had imaging in [...] heart failure 08/18/2023 06/07/2024 Overview (08/18/2023): Saw [employer] cards. Per pt she has normal echo, [...] (10/22/2023 4:48 PM EDT): Being followed by [facility]. 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 Dx); Pre-diabetes; Essential hypertension; Generalized anxiety disorder; Seasonal allergic rhinitis, unspecified trigger; Chronic fatigue; Hyperparathyroidism, primary 11/09/[address] [place] [address] Nayely, Mónica, BANK NOTE DESIGNER Medication Refill 10/30/[address] [place] [address] Bell Arthur, Mónica, BANK NOTE DESIGNER Medication Refill 10/27/[address] [place] [address] Nayely, Mónica, BANK NOTE DESIGNER Medication Refill 10/27/2024 Orders Only [address] [place] [address] Chandrika Zimmerman CCMA ISAAC (obstructive sleep apnea); Nocturnal hypoxia 10/10/[address] [place] [address] Nayely, Mónica, BANK NOTE DESIGNER Medication Refill 10/10/[address] [place] [address] Mariusz Junior MD Medication Refill 10/09/[address] [place] [address] Bell ArthurSerjio fernandoika, BANK NOTE DESIGNER Referral ([facility] called requesting add'l info on patient in order to schedule there - please advise) 09/22/2024 Telephone [place] [address] [place] [address] Mónica Adler, BANK NOTE DESIGNER Results 09/18/2024 Refill SEP [place] [address] [place] [address] Mónica Adler, BANK NOTE DESIGNER Medication Refill 09/18/2024 Refill SEP [place] [address] [place] [address] Mariusz Junior MD Medication Refill 09/08/2024 Refill [place] [address] [place] [phone] Bell ArthurMónica fernando, BANK NOTE DESIGNER Medication Refill from Last 3 Months Immunizations [...] Attack Father Tom greenfield age 67 - [place] Vision Loss Father Tom greenfield No Known [...] Screening for malignant neoplasm of the rectum PHYSICAL THERAPY TEACHER CYTOLOGY REQUEST (PAP ONLY) Routine 08/07/2021 1:45 PM EDT Cervical cancer screening from Last 3 Months or Most Recently Relevant to Health Maintenance Results * (ABNORMAL) IRON+TIBC (11/10/2024 3:17 PM EDT) Pathologist [facility] Iron 47 30 - 160 mcg/dL 11/10/2024 10:26 PM EDT [facility] Transferrin 217 200 - 360 mg/dL 11/10/2024 10:26 PM EDT [email or web address] Transferrin Saturation 15(L) 20 - 50 % 11/10/2024 10:26 PM EDT [email or web address] TIBC 304 250 - 400 mcg/dL 11/10/2024 10:26 PM EDT [email or web address] Blood VENOUS BLOOD / Unknown Venipuncture / Unknown 11/10/2024 3:17 PM EDT 11/10/2024 3:17 PM EDT Mariusz Junior MD CHEMISTRY ORDERABLES Final Res ult Performing Organization Address [facility] de Phone Number [facility], [address] , [place] [address] * VITAMIN B12/ FOLIC ACID (11/10/2024 3:17 PM EDT) Pathologist [facility] Vitamin B12 323 232 - 1,245 pg/mL 11/10/2024 9:59 PM EDT [facility], [facility] Folate 12.90 >=4.80 ng/mL 11/10/2024 9:59 PM EDT [facility] Blood VENOUS BLOOD / Unknown Venipuncture / Unknown 11/10/2024 3:17 PM EDT 11/10/2024 3:17 PM EDT Narrative [facility], [facility] - 11/10/2024 9:59 PM EDT Ingestion of inez doses of biotin (>5 mg/day) taken within 8 hours of drawing blood sample can interfere with this immunoassay test. Mariusz Junior MD CHEMISTRY ORDERABLES Final Res ult Performing Organization Address [facility] de Phone Number [facility], [address] , [place] [address] * TSH REFLEX TO FT4 (11/10/2024 3:17 PM EDT) Pathologist [facility] TSH Reflex 1.040 0.270 - 4.200 mcIU/mL 11/10/2024 10:26 PM EDT [email or web address], [employer] Blood VENOUS BLOOD / Unknown Venipuncture / Unknown 11/10/2024 3:17 PM EDT 11/10/2024 3:17 PM EDT Narrative [email or web address] - 11/10/2024 10:26 PM EDT Ingestion of inez doses of biotin (>5 mg/day) taken within 8 hours of drawing blood sample can interfere with this immunoassay test. us Mariusz Junior MD CHEMISTRY ORDERABLES Final Res ult [email or web address], [facility] [address] [facility] , [place] [address] * (ABNORMAL) CBC WITH DIFF (11/10/2024 3:17 PM EDT) Pathologist [facility] WBC 9.5 3.7 - 10.3 x10(3)/mcL 11/10/2024 9:29 PM EDT [facility] RBC 5.50(H) 3.90 - 5.20 x10(6)/mcL 11/10/2024 9:29 PM EDT [facility] Hgb 12.9 11.2 - 15.7 g/dL 11/10/2024 [...] 11/10/2024 9:29 PM EDT [facility] RDW 16.8(H) <=14.9 % 11/10/2024 9:29 PM EDT [facility] Platelet 226 155 - 369 x10(3)/mcL 11/10/2024 9:29 PM EDT [facility] MPV 10.4 8.8 - 12.5 fL 11/10/2024 9:29 PM EDT [facility] Neut Percent 74.4 % 11/10/2024 9:29 PM EDT [facility] Comment:Neutrophils equals s egs plus bands Imm Gran% 0.5 % 11/10/2024 9:29 PM EDT [facility] Comment:Automated count of m etamyelocytes, myelocytes and promyelocytes. Lymph Percent 17.7 % 11/10/2024 9:29 PM EDT [facility] [place] Percent 4.9 % 11/10/2024 9:29 PM EDT [facility] Eos Percent 2.0 % 11/10/2024 9:29 PM EDT [facility] Baso Percent 0.5 % 11/10/2024 9:29 PM EDT [facility] Neut # 7.0(H) 1.6 - 6.1 x10(3)/mcL 11/10/2024 9:29 PM EDT [facility] Comment:Neutrophils equals s egs plus bands IMMGRAN# 0.1 0.0 - 0.1 x10(3)/mcL 11/10/2024 9:29 PM EDT [facility] Comment:Automated count of m etamyelocytes, myelocytes and promyelocytes. An absolute IG <0.1 is reported as 0.0. Lymph # 1.7 1.2 - 3.9 x10(3)/mcL 11/10/2024 9:29 PM EDT [facility] [place] # 0.5 0.3 - 0.9 x10(3)/mcL 11/10/2024 9:29 PM EDT [facility] Eos# 0.2 0.0 - 0.5 x10(3)/mcL 11/10/2024 9:29 PM EDT [facility] Baso # 0.1 0.0 - 0.1 x10(3)/mcL 11/10/2024 9:29 PM EDT [facility] [employer] Blood VENOUS BLOOD / Unknown Venipuncture / Unknown 11/10/2024 3:17 PM EDT 11/10/2024 3:17 PM EDT us Mariusz Junior MD HEMATOLOGY ORDERABLES Final Re sult [facility] [employer] [address] , [place] [address] * (ABNORMAL) PARATHYROID HORMONE INTACT (11/10/2024 3:17 PM EDT) Pathologist [facility] PTH Intact 79.30(H) 15.00 - 65.00 pg/mL 11/10/2024 10:07 PM EDT [facility] [employer] Blood VENOUS BLOOD / Unknown Venipuncture / Unknown 11/10/2024 3:17 PM EDT 11/10/2024 3:17 PM EDT Narrative [facility] [employer] [facility] - 11/10/2024 10:07 PM EDT Intact PTH [...] with this immunoassay test. us Mónica Adler BANK NOTE DESIGNER CHEMISTRY ORDERABLES Final Result Performing Organization Address City/[facility]/ZIP Co de Phone Number [facility] [employer] [address] , [place] [address] * HEMOGLOBIN A1C (11/10/2024 3:17 PM EDT) Hgb A1C 5.5 4.2 - 5.6 % 11/10/2024 9:54 PM EDT [facility] Est. Avg Glucose 111 mg/dL 11/10/2024 9:54 PM EDT [email or web address] Blood VENOUS BLOOD / Unknown Venipuncture / Unknown 11/10/2024 3:17 PM EDT 11/10/2024 3:17 PM EDT Narrative [email or web address], [facility] - 11/10/2024 9:54 PM EDT REFERENCE RANGE: Normal: 4.0-5.6% Pre-diabetes: 5.7-6.4% Provisional diagnosis of diabetes: >6.4% Hgb F>10% and anything which shortens red cell survival, such as hemolytic anemia, or unstable hemoglobin variants such as HbSS, HbSC, or HbCC, will lower the HbA1c value associated with a given level of glycemic control. us Mariusz Junior MD CHEMISTRY ORDERABLES Final Res ult [email or web address], [facility] [address] [facility] , [address] [place], [place] [id number] * BASIC METABOLIC PANEL (11/10/2024 3:17 PM EDT) Sodium 137 136 - 145 mmol/L 11/10/2024 10:26 PM EDT [facility] Potassium 4.0 3.5 - 5.0 mmol/L 11/10/2024 10:26 PM EDT [facility] Chloride 100 98 - 107 mmol/L 11/10/2024 10:26 PM EDT [facility] Total CO2 24 22 - 29 mmol/L 11/10/2024 10:26 PM EDT [facility] Anion Gap 13 7 - 16 mmol/L 11/10/2024 10:26 PM EDT [facility] Calcium 9.3 8.6 - 10.4 mg/dL 11/10/2024 10:26 PM EDT [facility] Glucose Lvl 90 70 - 99 mg/dL 11/10/2024 10:26 PM EDT [facility], [facility] BUN 15 6 - 20 mg/dL 11/10/2024 10:26 PM EDT [facility], [facility] Creatinine 0.72 0.51 - 1.30 mg/dL 11/10/2024 10:26 PM EDT [facility]24 [email or web address] eGFR (CKD-EPIcr 2020) 102 >=60 mL/min/1.7 3 m2 11/10/2024 10:26 PM ED[address] [facility] agreement24 [email or web address] Comment:Estimated GFR was ca lculated using the CKD-EPIcr (2020) equation refit without race. The equation is recommended by the National Kidney Foundation - [place] Society of Nephrology Task Force. Blood VENOUS BLOOD / Unknown Venipuncture / Unknown 11/10/2024 3:17 PM EDT 11/10/2024 3:17 PM EDT Mariusz Junior MD CHEMISTRY ORDERABLES Final Res ult [facility] agreement24 [email or web address], [facility] [address] [facility] , [place] [address] * HM MAMMOGRAPHY (12/30/2022 7:23 AM EDT) [facility] Provider HEALTH MAINTENANCE Final Res ult SEP OFFICE * COLOGUARD (09/16/2022 10:30 PM EDT) COLOGUARD CLINICAL REPORT Negative Negative [facility] Comment: NEGATIVE TEST RESULT. A [...] colonoscopy. (Haider Farnsworth, N Engl J Med 2014;370(14):0062-3599) The normal value (reference range) for this assay is negative. COLOGUARD RE-SCREENING RECOMMENDATION: Periodic colorectal cancer screening is an important part of preventive healthcare for asymptomatic individuals at average risk for colorectal cancer. Following a negative Cologuard result, the [place] Cancer Society and U.S. Multi-Society Task Force screening guidelines recommend a Cologuard re-screening interval of 3 years. References: [place] Cancer Society Guideline for Colorectal Cancer Screening: https://www.cancer.org/cancer/zdniu-ttnqkc-xxvfnl/girnvtjsf-zlgiazlyz-ftsmnbp/ac s-rec ommendations.html.; Calin DK, Mary CR, Marco Antonio HallK, Colorectal Cancer Screening: Recommendations for Physicians and Patients from the U.S. Multi-Society Task Force on Colorectal Cancer Screening , Am J Gastroenterology 2017; 112:3528-6845. TEST DESCRIPTION: Composite algorithmic analysis of stool [...] colonoscopy. (Haider Farnsworth, N Engl J Med 2014;370(14):2574-4776.) Cologuard may produce a false negative or false positive result (no colorectal cancer or precancerous polyp present at colonoscopy follow up). A negative Cologuard test result does not guarantee the absence of CRC or advanced adenoma (pre-cancer). The current Cologuard screening interval is every 3 years. ([place] Cancer Society and U.S. Multi-Society Task Force). Cologuard performance data in a 10,000 patient pivotal study using colonoscopy as the reference method can be accessed at the following location: www.Athersys.Teachernow/results. Additional description of the Cologuard test process, warnings and precautions can be found at www.cologuard.com. Stool 09/16/2022 10:3 0 PM EDT 09/18/2022 8:25 PM EDT Mónica Adler APRN [employer] [facility] - ORDERABLES Final Result Performing Organization Address City/State/[facility] Co de Phone Number [facility] [employer], [place] [address], [facility] [address] [place] [address] * PHYSICAL THERAPY TEACHER CYTOLOGY REQUEST (PAP ONLY) (08/07/2021 1:45 PM EDT) CASE REPORT Gynecologic Cytology Report Case: [id number] Authorizing Provider: Mónica Adler APRN Collected: 08/07/2021 1345 Ordering Location: [facility] Received: 08/07/2021 1345 First Screen: Sandra Calhoun CT Rescreen: Yohana Richey CT Specimen: LIQUID-BASED PAP - CERVICAL/ENDOCERV ICAL, Cervix, Endocervical 08/12/2021 3:28 PM EDT [email or web address] PAP FINAL DIAGNOSIS Negative for intraepithelial lesion or malignancy 08/12/2021 3:28 PM EDT [email or web address] at 1528 EDT MICROSCOPIC DESCRIPTION Microscopic examination is performed and the findings corroborate the diagnosis. 08/12/2021 3:28 PM EDT [email or web address] PAP SMEAR ADEQUACY Satisfactory for evaluation 08/12/2021 3:28 PM EDT [email or web address] SPECIMEN LIMITATIONS Obscured by inflammation 08/12/2021 3:28 PM EDT [facility] PAP ORGANISMS NOTED Abundant bacteria present. 08/12/2021 3:28 PM EDT [facility] ENDOCERVICAL T-ZONE Transformation zone absent. 08/12/2021 3:28 PM EDT [facility] EMBEDDED IMAGES 3:28 PM EDT [facility] PAP DISCLAIMER This case was [...] before definitive therapy. Processed using the ThinPrep Psychometrician Automated cytology screening device ([employer]). 08/12/2021 3:28 PM EDT [facility] Thin Prep ENDOCERVICAL STRUCTURE / Unknown 08/07/2021 1:45 PM EDT 08/07/2021 1:45 PM EDT Mónica Adler BANK NOTE DESIGNER CYTOLOGY ORDERABLES Final R esult [facility] [address] [place] [id number] from Last 3 Months or Most Recently Relevant to Health Maintenance Insurance [employer] [facility] DUAL COMPLETE HMO [place] [facility] [place] [facility] DUAL COMPLETE HMO [place] [employer] [facility] [place] Care Teams Media Marketing Coordinator Relationship Specialty Start Date End Date Mónica Adler APRN [address] [place], [place] [phone] PCP - General Nurse Practitioner-Family 12/08/16
--- NOTE | 2024-12-07 20:09 | CT_ITS ---
PROCEDURE INFORMATION: Exam: CT Abdomen And Pelvis With Contrast Exam date and time: 12/07/2024 9:11 PM Age: 49 years old Clinical indication: Abdominal pain; Additional info: Recent ccy, ruq pain, fever TECHNIQUE: Imaging protocol: Computed tomography of the abdomen and pelvis with contrast. Radiation optimization: All CT scans at this facility use at least one of these dose optimization techniques: automated exposure control; mA and/or kV adjustment per patient size (includes targeted exams where dose is matched to clinical indication); or iterative reconstruction. Contrast material: ISOVUE; Contrast volume: 75 ml; Contrast route: IV; COMPARISON: CT ABDOMEN PELVIS W CON 12/05/2024 11:01 PM FINDINGS: Lungs: Mild atelectatic changes are present within the lung bases. No basilar consolidation or significant pleural effusion is appreciated. Heart: There is pericardial fat. No pericardial fluid appreciated. Liver: Normal. No mass. Gallbladder and biliary ducts: Surgical clips gallbladder fossa. There is a small amount of fluid again demonstrated within the gallbladder fossa. Pancreas: Normal. No ductal dilation. Spleen: Mild splenomegaly with the spleen measuring approximately 16 cm in length. Adrenal glands: Normal. No mass. Kidneys and ureters: Normal-size kidneys that demonstrates symmetrical enhancement. There is a small retained stone within each kidney. Low-attenuation 2.2 cm mass at the medial upper pole of the right kidney with Hounsfield unit measurements of less than 20. 1.1 cm low-attenuation mass posterior cortex left kidney with Hounsfield unit measurement of less than 20. The masses have an appearance most consistent with renal cysts. No follow-up required. Stomach and bowel: No abnormality of the stomach or small bowel is appreciated. There appears to be a mild degree of wall thickening of the hepatic flexure adjacent to the subhepatic fluid collection and mesenteric inflammation. The left colon is unremarkable. Appendix: Small normal-appearing appendix in the right lower quadrant. Intraperitoneal space: 4.5 x 3.6 x 3.1 cm fluid collection abutting the undersurface of the right lobe of the liver that is just anterior to the gallbladder fossa which has enlarged from December 05, 2024. The fluid collection is thin walled. There is gas within the anterior aspect of the fluid collection. There is questionable continuity of the larger fluid collection to the fluid within the gallbladder fossa on the coronal images. There is patchy surrounding mesenteric increased attenuation in the right upper quadrant. Vasculature: Unremarkable. No abdominal aortic aneurysm. Lymph nodes: Unremarkable. No enlarged lymph nodes. Urinary bladder: Unremarkable as visualized. Reproductive: Normal-appearing uterus and right ovary. 2.5 cm dominant follicle left ovary that is smaller than on December 05, 2024. Bones/joints: Old fracture posterolateral right 9th rib. No acute bony abnormality appreciated. Advanced degenerative disc disease L5-S1. Soft tissues: Postsurgical changes are noted within the left anterior abdominal wall and at the umbilicus. IMPRESSION: 1. 4.5 x 3.6 x 3.1 cm thin walled fluid collection at the undersurface of the right lobe of the liver anterior to the gallbladder fossa which has enlarged from December 05, 2024. Surrounding mesenteric inflammation and mild wall thickening of the hepatic flexure. Questionable continuity with the fluid in the gallbladder fossa from recent cholecystectomy. 2. Although the fluid collection could represent an enlarging seroma or hematoma the interval enlargement with gas within the fluid collection and surrounding inflammation is most worrisome for a developing abscess. The possibility of a bile leak is not excluded. A follow-up hepatobiliary scan is recommended. 3. No other significant change from December 05, 2024 is appreciated. COMMENT: THIS REPORT CONTAINS FINDINGS THAT MAY BE CRITICAL TO PATIENT CARE. The exam findings were verbally communicated by me to Dr. Jaylen Ortiz via telephone conference at 10:16 PM EDT on 12/07/2024. The findings were acknowledged and understood. COMMENTS: Consistent with the [place] [employer]'s Incidental Findings Committee white paper (J Am Kath Radiol 2018): Any incidental renal lesion less than 1 cm or classified as too small to characterize, or any incidental cystic renal lesion characterized as simple-appearing, is likely benign. No follow-up imaging is recommended for these lesions per consensus recommendations based on imaging criteria.
--- NOTE | 2024-12-07 20:09 | XR_ITS ---
PROCEDURE INFORMATION: Exam: XR Chest Exam date and time: 12/07/2024 9:05 PM Age: 49 years old Clinical indication: Pain; Chest pressure; Additional info: Chest pain TECHNIQUE: Imaging protocol: Radiologic exam of the chest. Views: 1 view. COMPARISON: CT ANGIO CHEST PE PROTOCOL 12/05/2024 11:01 PM FINDINGS: Lungs: Suboptimal inspiratory effort. Limited evaluation of the left base due to the size of the cardiac silhouette and overlying soft tissues. The left upper lung and right lung appear clear. No vascular congestion. Pleural spaces: Unremarkable. No pleural effusion. No pneumothorax. Heart/Mediastinum: Enlarged cardiac silhouette. Bones/joints: Unremarkable. IMPRESSION: No definite acute finding. Limited visualization of the left base and costophrenic angle due to the size of the cardiac silhouette and overlying soft tissue shadows.
--- NOTE | 2024-12-07 20:28 | ECG_ITS ---
APPROVED REPORT Exam: Resting ECG HR:84 bpm ECG Measurements Heart Rate 84 AXES WY 160 P 59 QRSd 101 QRS 83 QT 353 T 52 QTc 394 Conclusion SINUS RHYTHM LOW QRS VOLTAGE IN PRECORDIAL LEADS [QRS DEFLECTION < 1.0 mV IN CHEST LEADS] BORDERLINE ECG UNCONFIRMED REPORT Normal sinus rhythm. No ST elevation or depression. QTc normal at 394 Electronically signed by : VINI YI, 12/07/2024 21:02:28
[2024-12-07] MEDS: HYDROMORPHONE 2MG/ML SYRINGE 0.5 MG IV (20:29)
[2024-12-07] MEDS: ONDANSETRON 4MG/2ML VIAL 4 MG IV (20:29)
--- NOTE | 2024-12-07 20:40 | ED_ITS ---
Discharge Plan Disposition Patient Disposition: Admitted Prescriptions Prescriptions: No Action levothyroxine 75 mcg tablet 75 mcg PO DAILY Patient Comments: TAKE 1 TABLET BY MOUTH DAILY albuterol sulfate 90 mcg/actuation HFA aerosol inhaler 2 puff inhalation Q4HP PRN (Reason: Shortness Of Breath) Patient Comments: INHALE 2 PUFFS INTO THE LUNGS EVERY 4 HOURS NEEDED FOR WHEEZING fluticasone propionate 50 mcg/actuation spray,suspension 1 spray intranasal DAILYP PRN (Reason: Congestion) Patient Comments: SHAKE LIQUID AND USE 1 SPRAY IN EACH NOSTRIL DAILY levocetirizine 5 mg tablet 5 mg PO DAILY Qty: 30 3RF alprazolam 0.5 MG tablet 0.5 mg PO BIDP PRN (Reason: Anxiety) sertraline 100 MG tablet 200 mg PO DAILY dapagliflozin propanediol [Farxiga] 5 mg tablet 5 mg PO DAILY rosuvastatin 5 mg tablet 5 mg PO HS oxycodone-acetaminophen 5-325 mg Tablet 1 tab PO Q6HP PRN (Reason: Moderate Pain (4-6)) 3 Days Qty: 12 0RF metoprolol succinate 100 mg tablet extended release 24 hr 100 mg PO DAILY meloxicam 7.5 mg tablet 7.5 mg PO BID PRN (Reason: pain) 7 Days Qty: 14 0RF Referrals Follow up/Referrals: Mónica Adler APRN [Primary Care Provider, Medical] - See instructions Clinical Impressions Clinical Impression: Intra-abdominal fluid collection, Leukocytosis Print Language Print Language: Spanish Discharge ED Provider: Jaylen Ortiz Adult HPI General Chief complaint: PAIN Stated complaint: Pain from gallbladder surgery,fever,unable to walk Time Seen by Provider: 12/07/24 19:51 Mode of Arrival: Wheelchair Source of Information: Patient and Spouse Description of Symptoms (Recalled from ER Triage Doc. by RN): Patient had divya on wednesday; has been having pain since. Has already been here once this week- was prescribed toradol- hasn't taken toradol because it doesn't help . Took percocet 5 at 1820 History of Present Illness HPI narrative: María Liriano is a 49y female with a history of hyperparathyroidism, hypertension, hyperlipidemia, hypothyroidism, CHF, anxiety, laparoscopic cholecystectomy on 12/03/2024 who presents to the emergency department for complaints of right upper quadrant pain, shortness of breath and right-sided chest pain. Patient states that ever since her surgery, she has had continued right upper quadrant pain that is worsened with deep breathing. She states that she is been taking Percocet at home and has not been taking meloxicam, however her pain has worsened today. She does report a temperature of 101 ?F today. She does report 1 episode of vomiting as well as some diarrhea. She states that she was seen in the emergency department 2 days ago was told that there was a fluid collection near her surgical site and was admitted and spoke with the surgeon the next morning who stated that he would follow it up but that she was appropriate for discharge. Related Data Home Medications ?Medication ?Instructions ?Recorded ?Confirmed sertraline 100 mg tablet 200 mg PO DAILY Depression 1 05/27/17 12/06/24 alprazolam 0.5 mg tablet 0.5 mg PO BIDP PRN Anxiety 0 09/14/19 12/06/24 levothyroxine 75 mcg tablet 75 mcg PO DAILY 06/16/23 0 12/06/24 albuterol sulfate 90 mcg/actuation 2 puff inhalation Q 4HP PRN 11/20/24 12/06/24 aerosol inhaler Shortness Of Breath fluticasone propionate 50 1 spray intranasal DAILYP MI N 11/20/24 12/06/24 mcg/actuation nasal Congestion spray,suspension dapagliflozin propanediol 5 mg 5 mg PO DAILY 12/03/24 12/06/24 tablet (Farxiga) rosuvastatin 5 mg tablet 5 mg PO HS 12/03/24 12/06/24 metoprolol succinate 100 mg 100 mg PO DAILY 12/06/24 0 12/06/24 tablet,extended release 24 hr Previous Rx's ?Medication ?Instructions ?Recorded levocetirizine 5 mg tablet 5 mg PO DAILY #30 tabs 11/10 05/06 oxycodone-acetaminophen 5 mg-325 1 tab PO Q6HP PRN Mod erate Pain 12/04/24 mg tablet (4-6) 3 days #12 tabs meloxicam 7.5 mg tablet 7.5 mg PO BID PRN pain 7 day s #14 12/06/24 tabs Allergies Allergy/AdvReac Type Severity Reaction Status Date / Time No Known Allergies Allergy Verified 11/20/24 11:06 [facility] Disclaimer: The information contained in this section may have been updated after the patient was seen, as this information can be updated by other users. Medical History (Updated 12/07/24 @ 23:14 by Jaylen Ortiz MD) Multiple thyroid nodules CHF (congestive heart failure) Asthma HLD (hyperlipidemia) HTN (hypertension) Anxiety Hyperparathyroidism Elevated brain natriuretic peptide (BNP) level Anemia Surgical History Status post fine needle aspiration History of hernia repair Family History Other Family history of acute congestive heart failure Family history of diabetes mellitus type II Family history of hyperlipidemia Family history of hypertension Social History (Updated 12/06/24 @ 01:36 by Mila Novak RN) Smoking Status: Never smoker alcohol intake: never substance use type: denies use current occupational status: unemployed and other Travel in the last 8 weeks?: None household members: other housing: house current occupational exposures/hazards: No Have you lived/traveled outside [place] in past 30 days?: No Contact w/someone who lives/traveled outside [place] past 30 days?: No Exposure to someone with infectious disease in past 14 days?: No Do you have a fever (greater than 100.4 F or 38 C)?: No Have you tested positive for COVID-19?: No Exposed to someone with COVID-19 in past 14 days?: No Do you have a sore throat?: No Do you have a cough?: No Do you have any weakness?: No Do you have any diarrhea?: No Are you experiencing any unusual bleeding?: No Do you have any muscle aches/pain?: No Do you have any abdominal pain?: No Are you experiencing loss of taste or smell?: No Other Medical History Have you received the Flu Vaccine for this season: No Have you received the Pneumonia Vaccine: No ROS Obtained: Yes Systems reviewed as appropriate & no additional complaints except as documented Physical Exam General General appearance: alert, in no apparent distress and obese Comment: Appears uncomfortable Head Head exam: atraumatic Eye Eye exam: Present normal appearance ENT ENT exam: Present normal external ear exam Neck Neck exam: Present full ROM Chest Chest inspection: Present symmetric chest wall rise Respiratory Respiratory exam: Present normal lung sounds bilaterally; Absent respiratory distress, wheezes or stridor Cardiovascular Cardiovascular exam: Present regular rate and normal rhythm Abdominal Exam Abdominal exam: Present soft, tenderness (Epigastric and right upper quadrant) and guarding (Epigastric and right upper quadrant); Absent distention or rigidity Comment: Laparoscopic surgical sites appear to be healing well without erythema, drainage or swelling. Extremities Exam Extremities exam: Present normal inspection Back Exam Back exam: Present normal inspection Neurological Exam Neurological exam: Present alert and oriented X3 Psychiatric Psychiatric exam: Present normal affect Skin Skin exam: Present warm and dry Medical Decision Making Medical Records Screening: Per USPSTF and CDC recommendations, given the prevalence of disease in our region, it is our hospital?s policy to screen for HIV and viral Hepatitis for all patients aged 18 and over and those with ongoing risk factors. [place] Inquiry Pt receiving controlled substance: No Vital Signs: 12/07/24 19:25 12/07/24 19:36 12/07/24 20:00 Temperature 99.1 F Temperature Source Oral Pulse Rate 82 81 Pulse Rate [Right Radial] 82 Respiratory Rate 16 16 16 Blood Pressure 159/77 H Blood Pressure [Right Arm] 133/61 Blood Pressure Mean [Right Arm] 85 Blood Pressure Source [Right Arm] Automatic Cuff Blood Pressure Position [Right Arm] Sitting 02 Sat by Pulse Oximetry 97 97 95 Oxygen Delivery Method Room Air 12/07/24 22:30 12/07/24 23:00 Temperature 98.0 F Temperature Source Pulse Rate 88 94 H Pulse Rate [Right Radial] Respiratory Rate 16 16 Blood Pressure 135/80 138/78 Blood Pressure [Right Arm] Blood Pressure Mean [Right Arm] Blood Pressure Source [Right Arm] Blood Pressure Position [Right Arm] 02 Sat by Pulse Oximetry 95 86 L Oxygen Delivery Method Lab Data Lab Results 12/07/24 20:25: WBC 14.7 H D, RBC 4.47, Hgb 11.1 L, Hct 35.6 L, MCV 79.6 L, MCH 24.8 L, MCHC 31.2 L, RDW 15.9, Plt Count 208, MPV 10.5 H, Neut % (Auto) 91.3 H, Lymph % (Auto) 4.1 L, [place] % (Auto) 3.8, Eos % (Auto) 0.3, Baso % (Auto) 0.2, N eut # (Auto) 13.4 H, Lymph # (Auto) 0.6 L, [place] # (Auto) 0.6, Eos # (Auto) 0.1, Baso # (Auto) 0.0, PT 11.8, INR 1.07, APTT 29.3, Sodium 136, Potassium 3.7, Chloride 104, Carbon Dioxide 28, Anion Gap 7.7, BUN 11, Creatinine 0.80, Estimated Creat Clear 158, Estimated GFR 76, Est GFR ( Amer) 92, Glucose 114 H, Calcium 8.8, Total Bilirubin 0.6, AST 29 D, ALT 26 D, Alkaline Phosphatase 73, Troponin I < 0.01, C-Reactive Protein 76.7 H, Total Protein 6.8, Albumin 3.8, Globulin 3.0, Albumin/Globulin Ratio 1.3, Lipase 37, Serum HCG, Qual Negative 12/07/24 22:10: Urine Color Yellow, Urine Appearance Clear, Urine pH 6.0, Ur Specific [place] 1.010, Urine Protein Negative, Urine Glucose (UA) 3+, Urine Ketones Negative, Urine Blood Negative, Urine Nitrate Negative, Urine Bilirubin Negative, Urine Urobilinogen 0.2, Ur Leukocyte Esterase Negative, Urine RBC Occasional, Urine WBC 3-5, Ur Squamous Epith Cells 10-20, Urine Bacteria 1+ 12/07/24 20:25 12/07/24 20:25 Orders (Tests/Meds): ED MEDICATIONS Generic Name Dose Route Start Last Admin Trade Name Paco PRN Reason Stop Dose Admin Sodium Chloride 10 ml 12/07/24 21:12 12/07/24 21:13 Sodium Chloride 0.9% 10ml Syr (Rad Only) IV 01/06/25 21:11 10 ml NEEDED PRN Administration Maintain IV Site Discontinued Medications Generic Name Dose Route Start Last Admin Trade Name Freq PRN Reason Stop Dose Admin Hydromorphone HCl 0.5 mg 12/07/24 20:09 12/07/24 20:29 Hydromorphone 2mg/Ml Syringe IV 12/07/24 20:10 0.5 mg ONCE ONE Administration Hydromorphone HCl 1 mg 12/07/24 22:20 12/07/24 22:27 Hydromorphone 2mg/Ml Syringe IV 12/07/24 22:21 1 mg ONCE ONE Administration Piperacillin Sod/Tazobactam 100 mls @ 200 mls/hr 12/07/24 22:19 12/07/24 22:26 Sod 4.5 gm/ Sodium Chloride IV 12/07/24 22:48 200 mls/hr ONCE ONE Administration Iopamidol 75 ml 12/07/24 21:12 12/07/24 21:13 Iopamidol-370 (76%);100ml Bottle IV 12/07/24 21:13 75 ml ONCE ONE Administration Ondansetron HCl 4 mg 12/07/24 20:09 12/07/24 20:29 Ondansetron 4mg/2ml Vial IV 12/07/24 20:10 4 mg ONCE ONE Administration ORDERS Category Date Time Status CT abdomen pelvis w con Stat Cat Scan 12/07/24 20:09 Completed CXR --portable [XR chest portable] Stat Exams 12/07/24 20:09 Completed CBC w/Auto Diff [Complete Blood Count Auto Diff] Stat Lab 12/07/24 20:25 Completed CMP [Comprehensive Metabolic Panel] Stat Lab 12/07/24 20:25 Completed CRP [C-Reactive Protein] Stat Lab 12/07/24 20:25 Completed Lipase Stat Lab 12/07/24 20:25 Completed PT INR [Prothrombin Time INR] Stat Lab 12/07/24 20:25 Completed PTT [Activated Partial Thrombo Time] Stat Lab 12/07/24 20:25 Completed Serum [HCG Qualitative, Serum] Stat Lab 12/07/24 20:25 Completed Troponin I Q3H Lab 12/08/24 02:15 Ordered Troponin I Stat Lab 12/07/24 20:25 Completed UA [Urinalysis and Microscopic] Stat Lab 12/07/24 22:10 Completed ECG Data Tracing #1: I reviewed this ECG and interpreted as documented below: Normal sinus rhythm. No ST elevation or depression. QTc of 394 Medical Decision Narrative: María Liriano is a 49y female with a history of hyperparathyroidism, hypertension, hyperlipidemia, hypothyroidism, CHF, anxiety, laparoscopic cholecystectomy on 12/03/2024 who presents to the emergency department for complaints of right upper quadrant pain, shortness of breath and right-sided chest pain. Patient states that ever since her surgery, she has had continued right upper quadrant pain that is worsened with deep breathing. She states that she is been taking Percocet at home and has not been taking meloxicam, however her pain has worsened today. She does report a temperature of 101 ?F today. She does report 1 episode of vomiting as well as some diarrhea. She states that she was seen in the emergency department 2 days ago was told that there was a fluid collection near her surgical site and was admitted and spoke with the surgeon the next morning who stated that he would follow it up but that she was appropriate for discharge. On arrival, patient is normotensive, heart rate within normal limits, afebrile, maintaining proper oxygen saturation on room air. Physical exam, as stated above, revealed an ill but nontoxic-appearing female in no respiratory distress. She has tenderness in the right upper quadrant and epigastric region with guarding but not peritonitic. Cardiopulmonary exam is unremarkable. Differential diagnosis includes, but is not limited to: Intra-abdominal abscess, biloma, seroma, pneumonia, ACS, acute pancreatitis, postoperative pain, among others. The most morbid conditions were considered and workup was based on these. Patient's workup in the emergency department included: CT abdomen pelvis with IV contrast, chest x-ray, EKG, troponin, CBC with differential, CMP, PT/INR, CRP, lipase, PTT, serum test. Patient was initially treated with 0.5 mg of IV Dilaudid, 4 mg of IV Zofran. Laboratory workup shows leukocytosis of 14.7 with left shift, which is new from yesterday. Coagulation studies within normal limits. CMP unremarkable nonactionable with normal liver enzymes and bilirubin. Initial troponin less than 0.01. CRP is elevated at 76.7. Lipase of 37. Urinalysis with 10-20 squamous epithelial cells, indicating a degree of contamination but no obvious infection. Chest x-ray was interpreted by me personally. Low lung volumes, however no obvious consolidation, pneumothorax, and no widening of the mediastinum. See final radiology report for details. CT abdomen pelvis was interpreted by me personally. Patient has an enlarging fluid collection on the underside of the right lobe of the liver, now measuring 4.5 x 3.6 x 3.1 cm. I did discuss the patient's case with the radiologist who stated that there is also surrounding mesenteric inflammation and mild wall thickening of the hepatic flexure and possibly continuity with the fluid within the gallbladder fossa from recent cholecystectomy. This could represent enlarging seroma or hematoma and there is interval enlargement with gas within the fluid collection and surrounding inflammation is most worrisome for developing abscess. Bile leak is not excluded. Given these findings, I discussed patient's case with Dr. Duvall with the general surgery team who felt that this is unlikely to be an abscess given she is only 4 days postop. Recommended admission for continued IV antibiotics. I then discussed patient's case with Dr. Vasquez with the hospital medicine service who graciously agreed to admit the patient to the [facility] floor. I discussed admission with the patient she was agreeable with this plan. She was having continued pain and was given an additional 1 mg of IV Dilaudid. Critical Care Critical Care Time Critical Care Time: No
[2024-12-07 20:49] LABS: Hematocrit 35.6 % (37.0-47.0); Hemoglobin 11.1 g/dL (12.2-16.2); Immature Granulocytes % 0.3 %; Mean Corpuscular HGB Conc 31.2 g/dL (31.8-35.4); Mean Corpuscular Hemoglobin 24.8 pg (27.0-31.2); Mean Corpuscular Volume 79.6 fl (81-99); Nucleated Red Blood Cells % 0 %; Platelet Count 208 K/mm3 (142-424); Red Blood Count 4.47 M/mm3 (4.20-5.40); Red Cell Distribution Width-SD 45.3 fL; White Blood Count 14.7 K/mm3 (4.8-10.8)
[2024-12-07 20:52] LABS: Albumin Level 3.8 g/dl (3.5-5.0)
[2024-12-07 20:53] LABS: Chloride 104 mmol/L (98-107); Potassium 3.7 mmoL/L (3.5-5.1); Sodium 136 mmol/L (136-145)
[2024-12-07 20:55] LABS: Alanine Aminotransferase 26 U/L (12-78); Alkaline Phosphatase 73 U/L (38-126); Anion Gap 7.7 mEq/L (5-15); Aspartate Amino Transferase 29 U/L (14-36); Bilirubin,Total 0.6 mg/dl (0.2-1.3); Blood Urea Nitrogen 11 mg/dl (7-17); Carbon Dioxide 28 mmol/L (22.0-30.0); Creatinine Clearance Estimated 158 mL/min (50-200); Creatinine,Serum 0.80 mg/dl (0.52-1.04); Estimated Glomerular Filt Rate 76 ml/min (>60); GFR (African American) 92 ML/MIN (>60)
[2024-12-07 20:56] LABS: Albumin/Globulin Ratio 1.3 (1.1-1.8); Calcium 8.8 mg/dl (8.4-10.2); Globulin 3.0 g/dL (1.3-3.2); Glucose 114 mg/dl (74-100); Lipase 37 U/L (23-300); Total Protein,Serum 6.8 g/dl (6.3-8.2)
[2024-12-07 20:57] LABS: Activated Partial Thrombo Time 29.3 seconds (22.8-30.6); HCG Qualitative, Serum Negative (Negative); INR 1.07 (0.9-1.1); Prothrombin Time 11.8 seconds (10.1-12.5)
[2024-12-07 21:01] LABS: C-Reactive Protein 76.7 mg/L (0-4)
[2024-12-07 21:10] LABS: Troponin I < 0.01 ng/ml (0.00-0.034)
[2024-12-07] MEDS: SODIUM CHLORIDE 0.9% 10ML SYR (RAD ONLY) 10 ML IV (21:13)
[2024-12-07] MEDS: IOPAMIDOL-370 (76%);100ML BOTTLE 75 ML IV (21:13)
[2024-12-07 22:16] LABS: Microscopic, Urine URINE MICROSCOPIC (MICROSCOPIC)
[2024-12-07 22:18] LABS: Bilirubin,Urine Negative (Negative); Color,Urine YELLOW (Yellow); Glucose,Urine (UA) 3+ (Negative); Ketones,Urine Negative (Negative); Leukocyte Esterase,Urine Negative (Negative); PH,Urine 6.0 (5.0-8.5); Protein,Urine Negative (Negative); Specific Gravity, Urine 1.010 (1.005-1.030); Urobilinogen,Urine 0.2 EU/dl (0.2)
[2024-12-07] MEDS: PIPERACILLIN/TAZO 4.5 GM in 0.9 % SODIUM CHLORIDE 100 ML IV (22:26)
[2024-12-07] MEDS: HYDROMORPHONE 2MG/ML SYRINGE 1 MG IV (22:27)
[2024-12-07 22:28] LABS: Bacteria,Urine 1+ /lpf; RBC,Urine Occasional #/hpf (0-3)
--- NOTE | 2024-12-07 23:19 | P.HP_ITS ---
<Statement entered by Maikel Almazan MD - 12/09/24 15:10> Personally evaluated patient and agree with plan of care as outlined by the ELECTRIC ACCOUNTING MACHINE OPERATOR. History of Present Illness *Admission Date: 12/07/24 *Reason for visit:: Abdominal pain *History of present illness: This is a 49-year-old female who is known to our service and has a past medical history significant for multiple thyroid nodules, diastolic/ingestive heart failure, asthma, hyperlipidemia, hypertension, anxiety, hyperparathyroidism, elevated BNP, and anemia who presents with a chief complaint of abdominal pain. Due to patient's symptoms, she presented to the emergency room for evaluation. While in the emergency room, patient had a CT scan of the abdomen pelvis performed and revealed a 4.5 x 3.6 x 3.1 cm thin- walled fluid collection at the undersurface of the right lobe of the liver anterior to the gallbladder fossa which has enlarged from previous imaging, although the fluid collection could represent an enlarging seroma/hematoma the interval enlargement with gas within the fluid collection and surrounding inflammation is most worrisome for developing abscess. As a result of these findings, patient has been admitted for further management. During my evaluation of patient, patient states since being discharged previously she was doing okay but started to have some pain today. She reports a subjective fever 101. Increased right upper quadrant abdominal pain and some chest pressure. Patient was seen on last admission and surgery opted not to do any exploratory of abdomen, because they felt that the imaging was a normal variant for patient. Unfortunately, she Anjali presents with worsening of this structure. She is currently denying any lightheadedness, dizziness, rigors, headache, bilious emesis, shortness of breath, dyspnea, or continued chest pain. Patient did have some loose stool. On this presentation she has an elevated white blood cell count to be more specific, patient's white blood cell count 14.7, hemoglobin 11.7, macro 35.6, neutrophils 91.3%, blood glucose 114, C- reactive protein is and 76.7 PFSH PFS Disclaimer: The information contained in this section may have been updated after the patient was seen, as this information can be updated by other users. Medical History (Updated 12/07/24 @ 23:35 by Trevor Vasquez APRN) Multiple thyroid nodules CHF (congestive heart failure) Asthma HLD (hyperlipidemia) HTN (hypertension) Anxiety Hyperparathyroidism Elevated brain natriuretic peptide (BNP) level Anemia Surgical History Status post fine needle aspiration History of hernia repair Family History Other Family history of acute congestive heart failure Family history of diabetes mellitus type II Family history of hyperlipidemia Family history of hypertension Social History (Updated 12/06/24 @ 01:36 by Mila Novak RN) Smoking Status: Never smoker alcohol intake: never substance use type: denies use current occupational status: unemployed and other Travel in the last 8 weeks?: None household members: other housing: house current occupational exposures/hazards: No Have you lived/traveled outside [place] in past 30 days?: No Contact w/someone who lives/traveled outside US past 30 days?: No Exposure to someone with infectious disease in past 14 days?: No Do you have a fever (greater than 100.4 F or 38 C)?: No Have you tested positive for COVID-19?: No Exposed to someone with COVID-19 in past 14 days?: No Do you have a sore throat?: No Do you have a cough?: No Do you have any weakness?: No Do you have any diarrhea?: No Are you experiencing any unusual bleeding?: No Do you have any muscle aches/pain?: No Do you have any abdominal pain?: No Are you experiencing loss of taste or smell?: No Other Medical History Have you received the Flu Vaccine for this season: No Have you received the Pneumonia Vaccine: No Review of Systems Review of Systems Review of systems:: pertinent systems reviewed and negative unless documented below Constitutional Constitutional: Reports body ache(s), Reports chills and Reports fever(s) Eyes Eyes: Reports system reviewed and no additional complaints, except as documented ENT Ears, Nose, Mouth, and Throat: Reports system reviewed and no additional complaints, except as documented *Cardiovascular Cardiovascular: Reports system reviewed and no additional complaints, except as documented *Respiratory Respiratory: Reports system reviewed and no additional complaints, except as documented *Gastrointestinal Gastrointestinal: Reports abdominal pain, Reports nausea and Reports vomiting *Genitourinary Genitourinary: Reports system reviewed and no additional complaints, except as documented *Musculoskeletal Musculoskeletal: Reports system reviewed and no additional complaints, except as documented Integumentary/Breasts Skin/Breast: Reports system reviewed and no additional complaints, except as documented *Neurologic Neurologic: Reports system reviewed and no additional complaints, except as documented Psychiatric Psychiatric: Reports system reviewed and no additional complaints, except as documented Endocrine Endocrine: Reports system reviewed and no additional complaints, except as documented Hematologic/Lymphatic Hematologic/Lymphatic: Reports system reviewed and no additional complaints, except as documented Allergic/Immunologic Allergic/Immunologic: Reports system reviewed and no additional complaints, except as documented Meds Home Medications and Allergies Home Medications ?Medication ?Instructions ?Recorded ?Confirmed ?Type sertraline 100 mg tablet 200 mg PO DAILY Depression 1 05/27/17 12/06/24 History alprazolam 0.5 mg tablet 0.5 mg PO BIDP PRN Anxiety 0 09/14/19 12/06/24 History levothyroxine 75 mcg tablet 75 mcg PO DAILY 06/16/23 0 12/06/24 History albuterol sulfate 90 mcg/actuation 2 puff inhalation Q 4HP PRN 11/20/24 12/06/24 History aerosol inhaler Shortness Of Breath fluticasone propionate 50 1 spray intranasal DAILYP NM N 11/20/24 12/06/24 Histor y mcg/actuation nasal Congestion spray,suspension levocetirizine 5 mg tablet 5 mg PO DAILY #30 tabs 11/1012/06/24 Rx dapagliflozin propanediol 5 mg 5 mg PO DAILY 12/03/24 12/06/24 History tablet (Farxiga) rosuvastatin 5 mg tablet 5 mg PO HS 12/03/24 12/06/24 History oxycodone-acetaminophen 5 mg-325 1 tab PO Q6HP PRN Mod erate Pain 12/04/24 12/06/24 Rx mg tablet (4-6) 3 days #12 tabs meloxicam 7.5 mg tablet 7.5 mg PO BID PRN pain 7 day s #14 12/06/24 Rx tabs metoprolol succinate 100 mg 100 mg PO DAILY 12/06/24 0 12/06/24 History tablet,extended release 24 hr New Prescriptions to Start Prescriptions: Allergies Allergy/AdvReac Type Severity Reaction Status Date / Time No Known Allergies Allergy Verified 11/20/24 11:06 Exam Data for Last 24 hours Vital signs and Labs for Last 24 Hours: Temp Pulse Resp BP Pulse Ox O2 Del Method 98.0 F 94 H 16 138/78 86 L Room Air 12/07/24 23:00 12/07/24 23:00 12/07/24 23:00 12/07/24 23:00 12/07/24 23:00 12/07/24 19:25 Laboratory Results - last 24 hr 12/07/24 20:25: WBC 14.7 H D, RBC 4.47, Hgb 11.1 L, Hct 35.6 L, MCV 79.6 L, MCH 24.8 L, MCHC 31.2 L, RDW 15.9, Plt Count 208, MPV 10.5 H, Neut % (Auto) 91.3 H, Lymph % (Auto) 4.1 L, Yell % (Auto) 3.8, Eos % (Auto) 0.3, Baso % (Auto) 0.2, Neut # (Auto) 13.4 H, Lymph # (Auto) 0.6 L, Yell # (Auto) 0.6, Eos # (Auto) 0.1, Baso # (Auto) 0.0, PT 11.8, INR 1.07, APTT 29.3, Sodium 136, Potassium 3.7, Chloride 104, Carbon Dioxide 28, Anion Gap 7.7, BUN 11, Creatinine 0.80, Estimated Creat Clear 158, Estimated GFR 76, Est GFR ( Amer) 92, Glucose 114 H, Calcium 8.8, Total Bilirubin 0.6, AST 29 D, ALT 26 D, Alkaline Phosphatase 73, Troponin I < 0.01, C-Reactive Protein 76.7 H, Total Protein 6.8, Albumin 3.8, Globulin 3.0, Albumin/Globulin Ratio 1.3, Lipase 37, Serum HCG, Qual Negative 12/07/24 22:10: Urine Color Yellow, Urine Appearance Clear, Urine pH 6.0, Ur Specific [place] 1.010, Urine Protein Negative, Urine Glucose (UA) 3+, Urine Ketones Negative, Urine Blood Negative, Urine Nitrate Negative, Urine Bilirubin Negative, Urine Urobilinogen 0.2, Ur Leukocyte Esterase Negative, Urine RBC Occasional, Urine WBC 3-5, Ur Squamous Epith Cells 10-20, Urine Bacteria 1+ I & O for Last 24 hours: Intake & Output 12/04/24 12/05/24 12/06/24 12/07/24 23:59 23:59 23:59 23:59 Weight 117.934 kg Constitutional Constitutional: no acute distress, obese and cooperative *Routine HEENT Exam Head: Present normocephalic Eye: Present EOMI and PERRL ENT: Present mucous membranes moist *Routine Neck Exam Neck: Present supple, full ROM and trachea midline *Routine Respiratory Exam Respiratory: Present diminished air movement, normal respiratory effort, able to speak in complete sentences and symmetric chest movement *Routine Cardiovascular Exam Cardiovascular: Present RRR, Normal S1 and Normal S2 *Routine Abdominal Exam Abdominal: Present normoactive bowel sounds, tenderness and obese *Routine Rectal Exam Rectal:: deferred *Routine Genitalia Exam Genitalia:: deferred *Routine Extremities Exam Extremities: Present full ROM, pulses intact and normal capillary refill Routine Back/Spine/Pelvis Exam Back/Spine: Present full ROM *Routine Skin Exam Skin: Present intact, dry and warm *Routine Neurological Exam Neurological: Present alert, oriented X3, CN II-XII intact, moving all extremities and normal speech Routine Psychiatric Exam Psychiatric: Present normal affect, normal thought process, cooperative, good insight and good judgment H&P: Result Impressions 49-year-old female who is status postcholecystectomy 3 presents with additional abdominal pain imaging of the abdomen and pelvis shows an evolving abscess patient now has a white blood cell count Assessment and Plan *Assessment and plan (1) Intra-abdominal fluid collection: Status: Acute Category: Medical Code(s): R18.8 - Other ascites (2) Leukocytosis: Status: Acute Qualifiers: Leukocytosis type: unspecified Qualified Code(s): D72.829 - Elevated white blood cell count, unspecified Category: Medical Code(s): D72.829 - Elevated white blood cell count, unspecified (3) Elevated C-reactive protein (CRP): Status: Acute Category: Medical Code(s): R79.82 - Elevated C-reactive protein (CRP) Plan Assessment: Surgical complication Possible abscess Leukocytosis with left shift Elevated CRP - Consult general surgery - Zosyn 3.375 g IV every 6 hours Plan: Admit patient to the MedSurg unit Will give patient cardiac diet now make n.p.o. after midnight until evaluated by surgeon Incentive spirometer every 4 hours while awake Supple margin maintain oxygen saturation greater than 94% Vital signs every 4 hours CBC/BMP daily 40 mg Lovenox subcu daily for DVT prophylaxis 0.5 mg hydromorphone IV push every 4 hours as needed severe pain 4 mg Zofran IV push every 8 hours pain nausea vomit Full code I will discuss this case with attending physician Dr. Almazan
--- NOTE | 2024-12-07 23:46 | PC.NURSE ---
pt arived to floor via stretcher from ED at 2344.
[2024-12-08] VITALS (7 sets, daily range): BP systolic 118–152; BP diastolic 70–85; PULSE 69–88; RESP 12–18; TEMP 36.5–38.2; O2SAT 91–95; BMI 48.8
[2024-12-08] MEDS: HYDROMORPHONE 2MG/ML SYRINGE 0.5 MG IV ×4 (00:34→14:13)
[2024-12-08 04:14] LABS: Troponin I < 0.01 ng/ml (0.00-0.034)
--- NOTE | 2024-12-08 04:38 | PC.NURSE ---
Pt. was admitted overnight to Med/surg from the ED with RUQ and RLQ abdominal pain. Pt. had a cholecystectomy on 12/03/24. Pt. was discharged home 12/04/24. Pt. had onset of right sided abdominal pain and was seen in the ED 12/06/24, and 12/07/24. Pt. was also having low grade fevers. Per CT result fluid collection to right side abdomen. Pt. admitted for possible abcess. Pt. is alert and orientated x 4. Pt. is on room air. Pt. c/o RUQ and RLQ pain. Medicated as per JUN. Pt. getting IV antibiotics. Pt. has 4 LAP sites all clean, dry, intact. Pt. has a purewick in place. Pt. has a general surgery consult today. Pt. resting quietly in bed sleeping on and off post pain meds. Pt NPO. Personal items and call smith in reach, Bed in low and locked position. Safety measures in place.
[2024-12-08] MEDS: ACETAMINOPHEN 325MG TAB 650 MG PO ×2 (06:06→14:17)
[2024-12-08 06:10] LABS: Hematocrit 34.3 % (37.0-47.0); Hemoglobin 10.5 g/dL (12.2-16.2); Immature Granulocytes % 0.6 %; Mean Corpuscular HGB Conc 30.6 g/dL (31.8-35.4); Mean Corpuscular Hemoglobin 24.5 pg (27.0-31.2); Mean Corpuscular Volume 80.1 fl (81-99); Nucleated Red Blood Cells % 0 %; Platelet Count 190 K/mm3 (142-424); Red Blood Count 4.28 M/mm3 (4.20-5.40); Red Cell Distribution Width-SD 46.0 fL; White Blood Count 14.6 K/mm3 (4.8-10.8)
[2024-12-08] MEDS: PIPERACILLIN/TAZO 3.375 GM in 0.9 % SODIUM CHLORIDE 50 ML IV ×3 (06:18→17:05)
[2024-12-08 06:25] LABS: Chloride 104 mmol/L (98-107); Potassium 3.7 mmoL/L (3.5-5.1); Sodium 136 mmol/L (136-145)
[2024-12-08 06:28] LABS: Anion Gap 7.7 mEq/L (5-15); Blood Urea Nitrogen 9 mg/dl (7-17); Carbon Dioxide 28 mmol/L (22.0-30.0); Creatinine Clearance Estimated 86 mL/min (50-200); Creatinine,Serum 0.80 mg/dl (0.52-1.04); Estimated Glomerular Filt Rate 76 ml/min (>60); GFR (African American) 92 ML/MIN (>60)
[2024-12-08 06:29] LABS: Calcium 8.4 mg/dl (8.4-10.2); Glucose 110 mg/dl (74-100)
--- NOTE | 2024-12-08 07:54 | P.CONS_ITS ---
History of Present Illness *Admission Date: 12/07/24 *Reason for visit:: Abdominal pain, fever, radiographic evidence of change in fluid collection *History of present illness: This is a 49-year-old female seen in consultation after presenting to the emergency department with increasing epigastric/upper abdominal pain and fever. She is status post laparoscopic cholecystectomy on December 03, 2024 with subsequent discharge home the following day. Subsequent to initial discharge she was readmitted on December 06 2027 secondary to postoperative pain. 1 day prior to this evaluation she was discharged. She presented again to the emergency department with increasing pain in reports a fever. Evaluation included a CT scan that revealed a small change to the prior-documented postoperative fluid collection. Forwarded from admission H&P: This is a 49-year-old female who is known to our service and has a past medical history significant for multiple thyroid nodules, diastolic/ingestive heart failure, asthma, hyperlipidemia, hypertension, anxiety, hyperparathyroidism, elevated BNP, and anemia who presents with a chief complaint of abdominal pain. Due to patient's symptoms, she presented to the emergency room for evaluation. While in the emergency room, patient had a CT scan of the abdomen pelvis performed and revealed a 4.5 x 3.6 x 3.1 cm thin- walled fluid collection at the undersurface of the right lobe of the liver anterior to the gallbladder fossa which has enlarged from previous imaging, although the fluid collection could represent an enlarging seroma/hematoma the interval enlargement with gas within the fluid collection and surrounding inflammation is most worrisome for developing abscess. As a result of these findings, patient has been admitted for further management. During my evaluation of patient, patient states since being discharged previously she was doing okay but started to have some pain today. She reports a subjective fever 101. Increased right upper quadrant abdominal pain and some chest pressure. Patient was seen on last admission and surgery opted not to do any exploratory of abdomen, because they felt that the imaging was a normal variant for patient. Unfortunately, she Anjali presents with worsening of this structure. She is currently denying any lightheadedness, dizziness, rigors, headache, bilious emesis, shortness of breath, dyspnea, or continued chest pain. Patient did have some loose stool. On this presentation she has an elevated white blood cell count to be more specific, patient's white blood cell count 14.7, hemoglobin 11.7, macro 35.6, neutrophils 91.3%, blood glucose 114, C- reactive protein is and 76.7 PFSH [facility] Disclaimer: The information contained in this section may have been updated after the patient was seen, as this information can be updated by other users. Medical History (Updated 12/08/24 @ 07:59 by Keo Kay MD) Multiple thyroid nodules CHF (congestive heart failure) Asthma HLD (hyperlipidemia) HTN (hypertension) Anxiety Hyperparathyroidism Elevated brain natriuretic peptide (BNP) level Anemia Surgical History Status post fine needle aspiration History of hernia repair Family History Other Family history of acute congestive heart failure Family history of diabetes mellitus type II Family history of hyperlipidemia Family history of hypertension Social History Smoking Status: Never smoker alcohol intake: never substance use type: denies use current occupational status: unemployed and other Travel in the last 8 weeks?: None household members: other housing: house current occupational exposures/hazards: No Have you lived/traveled outside [place] in past 30 days?: No Contact w/someone who lives/traveled outside [place] past 30 days?: No Exposure to someone with infectious disease in past 14 days?: No Do you have a fever (greater than 100.4 F or 38 C)?: No Have you tested positive for COVID-19?: No Exposed to someone with COVID-19 in past 14 days?: No Do you have a sore throat?: No Do you have a cough?: No Do you have any weakness?: No Do you have any diarrhea?: No Are you experiencing any unusual bleeding?: No Do you have any muscle aches/pain?: No Do you have any abdominal pain?: No Are you experiencing loss of taste or smell?: No Review of Systems *Neurologic Neurologic: Reports system reviewed and no additional complaints, except as documented Meds Home Medications and Allergies Home Medications ?Medication ?Instructions ?Recorded ?Confirmed ?Type sertraline 100 mg tablet 200 mg PO DAILY Depression 1 05/27/17 12/08/24 History alprazolam 0.5 mg tablet 0.5 mg PO BIDP PRN Anxiety 0 09/14/19 12/08/24 History levothyroxine 75 mcg tablet 75 mcg PO DAILY 06/16/23 0 12/08/24 History albuterol sulfate 90 mcg/actuation 2 puff inhalation Q 4HP PRN 11/20/24 12/08/24 History aerosol inhaler Shortness Of Breath fluticasone propionate 50 1 spray intranasal DAILYP NC N 11/20/24 12/08/24 History mcg/actuation nasal Congestion spray,suspension levocetirizine 5 mg tablet 5 mg PO DAILY #30 tabs 11/1012/08/24 Rx dapagliflozin propanediol 5 mg 5 mg PO DAILY 12/03/24 12/08/24 History tablet (Farxiga) rosuvastatin 5 mg tablet 5 mg PO HS 12/03/24 12/08/24 History oxycodone-acetaminophen 5 mg-325 1 tab PO Q6HP PRN Mod erate Pain 12/04/24 12/08/24 Rx mg tablet (4-6) 3 days #12 tabs meloxicam 7.5 mg tablet 7.5 mg PO BID PRN pain 7 day s #14 12/06/24 12/08/24 Rx tabs metoprolol succinate 100 mg 100 mg PO DAILY 12/06/24 0 12/08/24 History tablet,extended release 24 hr New Prescriptions to Start Prescriptions: Allergies Allergy/AdvReac Type Severity Reaction Status Date / Time No Known Allergies Allergy Verified 11/20/24 11:06 Exam (Inpt) Vital signs and Labs for Last 24 Hours: Temp Pulse Resp BP Pulse Ox O2 Del Method 98.4 F 75 16 138/78 93 L Room Air 12/08/24 04:00 12/08/24 04:00 12/08/24 04:00 12/08/24 04:00 12/08/24 04:00 12/08/24 07:00 Laboratory Results - last 24 hr 12/07/24 20:25: WBC 14.7 H D, RBC 4.47, Hgb 11.1 L, Hct 35.6 L, MCV 79.6 L, MCH 24.8 L, MCHC 31.2 L, RDW 15.9, Plt Count 208, MPV 10.5 H, Neut % (Auto) 91.3 H, Lymph % (Auto) 4.1 L, [place] % (Auto) 3.8, Eos % (Auto) 0.3, Baso % (Auto) 0.2, N eut # (Auto) 13.4 H, Lymph # (Auto) 0.6 L, [place] # (Auto) 0.6, Eos # (Auto) 0.1, Baso # (Auto) 0.0, PT 11.8, INR 1.07, APTT 29.3, Sodium 136, Potassium 3.7, Chloride 104, Carbon Dioxide 28, Anion Gap 7.7, BUN 11, Creatinine 0.80, Estimated Creat Clear 158, Estimated GFR 76, Est GFR ( Amer) 92, Glucose 114 H, Calcium 8.8, Total Bilirubin 0.6, AST 29 D, ALT 26 D, Alkaline Phosphatase 73, Troponin I < 0.01, C-Reactive Protein 76.7 H, Total Protein 6.8, Albumin 3.8, Globulin 3.0, Albumin/Globulin Ratio 1.3, Lipase 37, Serum HCG, Qual Negative 12/07/24 22:10: Urine Color Yellow, Urine Appearance Clear, Urine pH 6.0, Ur Specific [place] 1.010, Urine Protein Negative, Urine Glucose (UA) 3+, Urine Ketones Negative, Urine Blood Negative, Urine Nitrate Negative, Urine Bilirubin Negative, Urine Urobilinogen 0.2, Ur Leukocyte Esterase Negative, Urine RBC Occasional, Urine WBC 3-5, Ur Squamous Epith Cells 10-20, Urine Bacteria 1+ 12/08/24 02:25: Troponin I < 0.01 12/08/24 05:53: WBC 14.6 H, RBC 4.28, Hgb 10.5 L, Hct 34.3 L, MCV 80.1 L, MCH 24.5 L, MCHC 30.6 L, RDW 16.0, Plt Count 190, MPV 10.4, Neut % (Auto) 86.0 H, L ymph % (Auto) 6.4 L, [place] % (Auto) 6.6, Eos % (Auto) 0.2, Baso % (Auto) 0.2, N eut # (Auto) 12.6 H, Lymph # (Auto) 0.9, [place] # (Auto) 1.0, Eos # (Auto) 0.0, Baso # (Auto) 0.0, Sodium 136, Potassium 3.7, Chloride 104, Carbon Dioxide 28, Anion Gap 7.7, BUN 9, Creatinine 0.80, Estimated Creat Clear 86, Estimated GFR 76, Est GFR ( Amer) 92, Glucose 110 H, Calcium 8.4 I & O for Labs for Last 24 Hours: Intake & Output 12/05/24 12/06/24 12/07/24 12/08/24 11:59 11:59 11:59 11:59 Intake Total 150 / 150 Output Total 800 / 800 Balance -650 / -650 Weight 322 lb 6.005 oz Constitutional: no acute distress Respiratory: Absent respiratory distress Cardiac: Absent Tachycardia GI: Present tenderness Results Labs 12/08/24 05:53 12/08/24 05:53 Labs: Laboratory Results - last 24 hr 12/07/24 20:25: WBC 14.7 H D, RBC 4.47, Hgb 11.1 L, Hct 35.6 L, MCV 79.6 L, MCH 24.8 L, MCHC 31.2 L, RDW 15.9, Plt Count 208, MPV 10.5 H, Neut % (Auto) 91.3 H, Lymph % (Auto) 4.1 L, [place] % (Auto) 3.8, Eos % (Auto) 0.3, Baso % (Auto) 0.2, N eut # (Auto) 13.4 H, Lymph # (Auto) 0.6 L, [place] # (Auto) 0.6, Eos # (Auto) 0.1, Baso # (Auto) 0.0, PT 11.8, INR 1.07, APTT 29.3, Sodium 136, Potassium 3.7, Chloride 104, Carbon Dioxide 28, Anion Gap 7.7, BUN 11, Creatinine 0.80, Estimated Creat Clear 158, Estimated GFR 76, Est GFR ( Amer) 92, Glucose 114 H, Calcium 8.8, Total Bilirubin 0.6, AST 29 D, ALT 26 D, Alkaline Phosphatase 73, Troponin I < 0.01, C-Reactive Protein 76.7 H, Total Protein 6.8, Albumin 3.8, Globulin 3.0, Albumin/Globulin Ratio 1.3, Lipase 37, Serum HCG, Qual Negative 12/07/24 22:10: Urine Color Yellow, Urine Appearance Clear, Urine pH 6.0, Ur Specific [place] 1.010, Urine Protein Negative, Urine Glucose (UA) 3+, Urine Ketones Negative, Urine Blood Negative, Urine Nitrate Negative, Urine Bilirubin Negative, Urine Urobilinogen 0.2, Ur Leukocyte Esterase Negative, Urine RBC Occasional, Urine WBC 3-5, Ur Squamous Epith Cells 10-20, Urine Bacteria 1+ 12/08/24 02:25: Troponin I < 0.01 12/08/24 05:53: WBC 14.6 H, RBC 4.28, Hgb 10.5 L, Hct 34.3 L, MCV 80.1 L, MCH 24.5 L, MCHC 30.6 L, RDW 16.0, Plt Count 190, MPV 10.4, Neut % (Auto) 86.0 H, L ymph % (Auto) 6.4 L, [place] % (Auto) 6.6, Eos % (Auto) 0.2, Baso % (Auto) 0.2, N eut # (Auto) 12.6 H, Lymph # (Auto) 0.9, [place] # (Auto) 1.0, Eos # (Auto) 0.0, Baso # (Auto) 0.0, Sodium 136, Potassium 3.7, Chloride 104, Carbon Dioxide 28, Anion Gap 7.7, BUN 9, Creatinine 0.80, Estimated Creat Clear 86, Estimated GFR 76, Est GFR ( Amer) 92, Glucose 110 H, Calcium 8.[address] scan - abdomen: report reviewed and image reviewed CT scan - pelvis: report reviewed and image reviewed Assessment and Plan *Assessment and plan (1) Postoperative abdominal pain: Status: Acute Category: Medical Code(s): R10.9 - Unspecified abdominal pain; G89.18 - Other acute postprocedural pain (2) Intra-abdominal fluid collection: Status: Acute Category: Medical Code(s): R18.8 - Other ascites (3) Leukocytosis: Status: Acute Qualifiers: Leukocytosis type: unspecified Qualified Code(s): D72.829 - Elevated white blood cell count, unspecified Category: Medical Code(s): D72.829 - Elevated white blood cell count, unspecified Plan The patient's symptomatology and radiographic changes could be client support representative of ongoing development of an expected postoperative fluid collection. During the initial days status post surgical intervention, many of these radiographic anomalies are expected and natural progression will create physical and radiographic changes. However, a small bile leak or early/developing abscess do remain a possibility. If the patient does have a developing abscess it would likely not be amenable to drainage (at this time) as it would be immature. If she has a small bile leak (or developing bile leak) further evaluation by the gastroenterology service for possible ERCP/decompression and evaluation by the radiology service regarding drain placement would be warranted. Initially proceed with continuation of IV antibiotics Initially proceed with hepatobiliary scan without cholecystokinin
--- NOTE | 2024-12-08 08:11 | HMH.PHAINT1 ---
Pharmacy Intervention Comments: MEDICATION RECONCILIATION COMPLETED ON PATIENT USING EXTERNAL FILL HISTORY FROM PHARMACY AND DISCHARGE SUMMARY FROM PREVIOUS ADMISSION. -JB RATLIFF, KISHAD
[2024-12-08] MEDS: SODIUM CHLORIDE 0.9% 10ML SYR (RAD ONLY) 10 ML IV (10:46)
[2024-12-08] MEDS: ISOTOPE CHOLETECH;1 DOSE (UP TO 15 MCI) IV (10:46)
--- NOTE | 2024-12-08 11:23 | PC.NURSE ---
down to radiology at 10:26
--- NOTE | 2024-12-08 12:29 | PC.NURSE ---
returned from radiology
[2024-12-08] MEDS: KETOROLAC 30MG/ML VIAL 30 MG IV ×2 (12:34→17:05)
--- NOTE | 2024-12-08 16:38 | PC.NURSE ---
pt resting supine in bed with family at bedside. tolerating RA with sats > 90%. complained of upper abd pain throughout the entire shift. dilaudid given PRN per mar and new order for q6 toradol due to insufficient relief of dilaudid. lap sites to abdomen remain intact and clean. HIDA scan completed this shift-pending reads. pt remains NPO. pt brought in home medications, but educated on need for hospitalist to reorder home meds before they can be sent to pharmacy and administered. numerous family members updated on POC with pt permission. no needs at this time. call light within reach.
--- NOTE | 2024-12-08 19:04 | EXP.PN ---
Subjective *Date: 12/08/24 *Time: 19:06 Interval history: Patient continues to have abdominal pain, requiring frequent analgesics. Has biliary leak on HIDA scan, discussed with general surgery and will attempt to transfer patient to tertiary center. Exam Data for Last 24 hours Vital signs and Labs for Last 24 Hours: Temp Pulse Resp BP Pulse Ox O2 Del Method 98.3 F 70 18 146/85 H 92 L Room Air 12/08/24 16:00 12/08/24 16:00 12/08/24 16:00 12/08/24 16:00 12/08/24 16:00 12/08/24 18:51 Laboratory Results - last 24 hr 12/07/24 20:25: WBC 14.7 H D, RBC 4.47, Hgb 11.1 L, Hct 35.6 L, MCV 79.6 L, MCH 24.8 L, MCHC 31.2 L, RDW 15.9, Plt Count 208, MPV 10.5 H, Neut % (Auto) 91.3 H, Lymph % (Auto) 4.1 L, [place] % (Auto) 3.8, Eos % (Auto) 0.3, Baso % (Auto) 0.2, Neut # (Auto) 13.4 H, Lymph # (Auto) 0.6 L, [place] # (Auto) 0.6, Eos # (Auto) 0.1, Baso # (Auto) 0.0, PT 11.8, INR 1.07, APTT 29.3, Sodium 136, Potassium 3.7, Chloride 104, Carbon Dioxide 28, Anion Gap 7.7, BUN 11, Creatinine 0.80, Estimated Creat Clear 158, Estimated GFR 76, Est GFR ( Amer) 92, Glucose 114 H, Calcium 8.8, Total Bilirubin 0.6, AST 29 D, ALT 26 D, Alkaline Phosphatase 73, Troponin I < 0.01, C-Reactive Protein 76.7 H, Total Protein 6.8, Albumin 3.8, Globulin 3.0, Albumin/Globulin Ratio 1.3, Lipase 37, Serum HCG, Qual Negative 12/07/24 22:10: Urine Color Yellow, Urine Appearance Clear, Urine pH 6.0, Ur Specific [place] 1.010, Urine Protein Negative, Urine Glucose (UA) 3+, Urine Ketones Negative, Urine Blood Negative, Urine Nitrate Negative, Urine Bilirubin Negative, Urine Urobilinogen 0.2, Ur Leukocyte Esterase Negative, Urine RBC Occasional, Urine WBC 3-5, Ur Squamous Epith Cells 10-20, Urine Bacteria 1+ 12/08/24 02:25: Troponin I < 0.01 12/08/24 05:53: WBC 14.6 H, RBC 4.28, Hgb 10.5 L, Hct 34.3 L, MCV 80.1 L, MCH 24.5 L, MCHC 30.6 L, RDW 16.0, Plt Count 190, MPV 10.4, Neut % (Auto) 86.0 H, Lymph % (Auto) 6.4 L, [place] % (Auto) 6.6, Eos % (Auto) 0.2, Baso % (Auto) 0.2, Neut # (Auto) 12.6 H, Lymph # (Auto) 0.9, [place] # (Auto) 1.0, Eos # (Auto) 0.0, Baso # (Auto) 0.0, Sodium 136, Potassium 3.7, Chloride 104, Carbon Dioxide 28, Anion Gap 7.7, BUN 9, Creatinine 0.80, Estimated Creat Clear 86, Estimated GFR 76, Est GFR ( Amer) 92, Glucose 110 H, Calcium 8.4 I & O for Last 24 hours: Intake & Output 12/05/24 12/06/24 12/07/24 12/08/24 23:59 23:59 23:59 23:59 Intake Total 100 / 100 270 / 270 Output Total 1100 / 1100 Balance 100 / 100 -830 / -830 Weight 117.934 kg 146.227 kg Constitutional Constitutional: no acute distress and obese *Routine HEENT Exam Head: Present normocephalic Eye: Present EOMI and PERRL ENT: Present mucous membranes moist *Routine Neck Exam Neck: Present supple; Absent lymphadenopathy *Routine Respiratory Exam Respiratory: Present CTA bilaterally *Routine Cardiovascular Exam Cardiovascular: Present RRR *Routine Abdominal Exam Abdominal: Present soft and tenderness; Absent normoactive bowel sounds Comments: Moderate tenderness to palpation in epigastric, right upper quadrant region, left upper quadrant. No peritoneal signs. Initial incision sites clean dry and intact. Hypoactive bowel sounds. *Routine Extremities Exam Extremities: Absent cyanosis, clubbing or edema *Routine Skin Exam Skin: Present warm; Absent rash *Routine Neurological Exam Neurological: Present alert and oriented X3 Assessment and Plan *Assessment and plan (1) Postoperative abdominal pain: Status: Acute Category: Medical Code(s): R10.9 - Unspecified abdominal pain; G89.18 - Other acute postprocedural pain (2) Bile leak: Status: Acute Category: Medical Code(s): K83.9 - Disease of biliary tract, unspecified Plan María Liriano is a 49-year-old female who presented with abdominal pain and was admitted for suspected abscess formation and/or biliary leak in the gallbladder fossa after laparoscopic cholecystom about a week ago. #Abdominal pain #Postoperative biliary leak #Possible postoperative abscess ? Patient underwent laparoscopic cholecystectomy on 12/03/2024 for acute cholecystitis. ? Patient has been admitted twice since the procedure for worsening abdominal pain, with CT abdomen now suspicious for abscess formation and/or biliary leak. ? Discussed with general surgery, ordered HIDA scan without CCK which revealed radiotracer accumulation along the inferior margin of the liver suggestive of biliary leak. ? Patient states she has been having intermittent increased abdominal pain, requiring Dilaudid therapy. No peritoneal signs on examination. ? After discussion with general surgery, will attempt to transfer patient to tertiary center for definitive management. ? N.p.o. for now. Continue LR at 100 mL/h. ? Toradol, Percocet, Dilaudid, simethicone for pain management. ? Continue Zosyn 3.375 g every 6 hours for possible postoperative abscess. WBC improved from 14.7-12.8, no signs of sepsis. ? Follow-up LFTs, CBC in the morning. #Suspected postoperative ileus ? Hypoactive bowel sounds, no bowel movements in a few days. Passing gas. ? N.p.o. with IV fluids as above. Replete electrolytes as appropriate. #Hypothyroidism ? Continue home levothyroxine 75 mcg. #Anxiety/depression ? Continue home sertraline 200 mg daily, Xanax. Full code DVT prophylaxis: Lovenox 40 mg
[2024-12-08] MEDS: HYDROMORPHONE 2MG/ML SYRINGE 1 MG IV (19:39)
[2024-12-08] MEDS: LACTATED RINGERS 1000ML 1,000 ML 100 ML IV (19:41)
[2024-12-08] MEDS: OXYCODONE 5MG W/APAP 325MG TABLET 1 EACH PO (20:18)
[2024-12-08] MEDS: SIMETHICONE 80MG CHEWABLE TABLET 160 MG PO (20:19)
[2024-12-09] VITALS: BP 137/74; PULSE 71; RESP 14; TEMP 36.7; O2SAT 93
[2024-12-09] MEDS: PIPERACILLIN/TAZO 3.375 GM in 0.9 % SODIUM CHLORIDE 50 ML IV ×3 (00:14→11:08)
[2024-12-09] MEDS: HYDROMORPHONE 2MG/ML SYRINGE 1 MG IV ×2 (00:41→04:52)
[2024-12-09] MEDS: KETOROLAC 30MG/ML VIAL 30 MG IV (00:42)
[2024-12-09] MEDS: LACTATED RINGERS 1000ML 1,000 ML 100 ML IV ×2 (01:34→05:47)
[2024-12-09 04:00] VITALS: BP 123/74; PULSE 61; RESP 12; TEMP 36.9; O2SAT 94; BMI 48.3
[2024-12-09] MEDS: OXYCODONE 5MG W/APAP 325MG TABLET 1 EACH PO ×2 (04:53→11:08)
[2024-12-09] MEDS: SIMETHICONE 80MG CHEWABLE TABLET 160 MG PO ×2 (06:19→12:29)
[2024-12-09 06:30] LABS: Hematocrit 32.4 % (37.0-47.0); Hemoglobin 10.0 g/dL (12.2-16.2); Immature Granulocytes % 0.5 %; Mean Corpuscular HGB Conc 30.9 g/dL (31.8-35.4); Mean Corpuscular Hemoglobin 24.8 pg (27.0-31.2); Mean Corpuscular Volume 80.4 fl (81-99); Nucleated Red Blood Cells % 0 %; Platelet Count 194 K/mm3 (142-424); Red Blood Count 4.03 M/mm3 (4.20-5.40); Red Cell Distribution Width-SD 46.3 fL; White Blood Count 12.8 K/mm3 (4.8-10.8)
[2024-12-09 06:45] LABS: Anion Gap 9.3 mEq/L (5-15); Blood Urea Nitrogen 13 mg/dl (7-17); Calcium 8.4 mg/dl (8.4-10.2); Carbon Dioxide 29 mmol/L (22.0-30.0); Chloride 104 mmol/L (98-107); Creatinine Clearance Estimated 86 mL/min (50-200); Creatinine,Serum 0.80 mg/dl (0.52-1.04); Estimated Glomerular Filt Rate 76 ml/min (>60); GFR (African American) 92 ML/MIN (>60); Glucose 93 mg/dl (74-100); Potassium 3.3 mmoL/L (3.5-5.1); Sodium 139 mmol/L (136-145)
[2024-12-09 08:00] VITALS: BP 106/59; PULSE 61; RESP 18; TEMP 36.3; O2SAT 92
[2024-12-09 08:06] LABS: Alanine Aminotransferase 17 U/L (12-78); Albumin Level 3.0 g/dl (3.5-5.0); Alkaline Phosphatase 77 U/L (38-126); Aspartate Amino Transferase 16 U/L (14-36); Bilirubin,Direct 0.3 mg/dl (0.0-0.4); Bilirubin,Indirect 0.3 mg/dL (0.0-0.9); Bilirubin,Total 0.6 mg/dl (0.2-1.3); Bilirubin,Unconjugated 0.3 mg/dL (0.0-1.1); Total Protein,Serum 5.6 g/dl (6.3-8.2)
--- NOTE | 2024-12-09 08:36 | P.PN_ITS ---
Subjective Patient reports: still having pain Exam Data for Last 24 hours Vital signs and Labs for Last 24 Hours: Temp Pulse Resp BP Pulse Ox O2 Del Method 97.4 F L 61 18 106/59 L 92 L Room Air 12/09/24 08:00 12/09/24 08:00 12/09/24 08:00 12/09/24 08:00 12/09/24 08:00 12/09/24 08:00 Laboratory Results - last 24 hr 12/09/24 05:55: WBC 12.8 H, RBC 4.03 L, Hgb 10.0 L, Hct 32.4 L, MCV 80.4 L, MCH 24.8 L, MCHC 30.9 L, RDW 15.9, Plt Count 194, MPV 10.5 H, Neut % (Auto) 84.5 H, Lymph % (Auto) 8.3 L, [place] % (Auto) 5.1, Eos % (Auto) 1.4, Baso % (Auto) 0.2, Neut # (Auto) 10.8 H, Lymph # (Auto) 1.1, [place] # (Auto) 0.7, Eos # (Auto) 0.2, Baso # (Auto) 0.0, Sodium 139, Potassium 3.3 L, Chloride 104, Carbon Dioxide 29, Anion Gap 9.3, BUN 13 D, Creatinine 0.80, Estimated Creat Clear 86, Estimated GFR 76, Est GFR ( Amer) 92, Glucose 93, Calcium 8.4, Total Bilirubin 0.6, Direct Bilirubin 0.3, Conjugated Bilirubin 0.0, Indirect Bilirubin 0.3, Unconjugated Bilirubin 0.3, AST 16 D, ALT 17 D, Alkaline Phosphatase 77, Total Protein 5.6 L, Albumin 3.0 L D I & O for Last 24 hours: Intake & Output 12/06/24 12/07/24 12/08/24 12/09/24 11:59 11:59 11:59 11:59 Intake Total 150 / 150 1328.333 / 1328.333 Output Total 800 / 800 550 / 550 Balance -650 / -650 778.333 / 778.333 Weight 322 lb 6.005 oz 319 lb 1.6 oz Radiology Reports for the Last 24 Hours: Hepatobiliary scan completed yesterday revealed radiotracer accumulation along the inferior margin of the left lobe of the liver. This was felt to possibly be reflux into the stomach but more likely consistent with biloma/bile leak when correlated with recent CT findings. Constitutional Constitutional: no acute distress *Routine Respiratory Exam Respiratory: Absent respiratory distress *Routine Cardiovascular Exam Cardiovascular: Absent tachycardia *Routine Abdominal Exam Abdominal: Present tenderness Progress Note: A&P Assessment and plan (1) Postoperative abdominal pain: Status: Acute Assessment and plan: The patient remains afebrile with stable and normal vital signs. Her white blood cell count is normalizing. Her liver function studies have remained normal. She does not require emergent intervention; however, further intervention in the very near future may be warranted (see #2 below). (2) Bile leak: Status: Acute Assessment and plan: Although the diagnosis of bile leak remains somewhat equivocal, this must be pursued as a potential diagnosis until it can be ruled out . If bilious leak is ongoing, the etiology would also be somewhat equivocal at this time (cystic stump leak, ducts of [place]ch[place], etc.). Further management may include radiology- guided drain placement, ERCP, MRCP, etc. Radiology-guided drain placement (if needed) may not be readily-available at this facility; therefore, transfer to tertiary center may ultimately be required.
[2024-12-09] MEDS: SERTRALINE 100MG TABLET 200 MG PO (09:28)
[2024-12-09] MEDS: LEVOTHYROXINE 75MCG (0.075MG) TAB 75 MCG PO (09:28)
--- NOTE | 2024-12-09 11:37 | P.DS_ITS ---
General Admission date:: 12/07/24 HPI HPI HPI: This is a 49-year-old female seen in consultation after presenting to the emergency department with increasing epigastric/upper abdominal pain and fever. She is status post laparoscopic cholecystectomy on December 03, 2024 with subsequent discharge home the following day. Subsequent to initial discharge she was readmitted on December 06 2027 secondary to postoperative pain. 1 day prior to this evaluation she was discharged. She presented again to the emergency department with increasing pain in reports a fever. Evaluation included a CT scan that revealed a small change to the prior-documented postoperative fluid collection. Forwarded from admission H&P: This is a 49-year-old female who is known to our service and has a past medical history significant for multiple thyroid nodules, diastolic/ingestive heart failure, asthma, hyperlipidemia, hypertension, anxiety, hyperparathyroidism, elevated BNP, and anemia who presents with a chief complaint of abdominal pain. Due to patient's symptoms, she presented to the emergency room for evaluation. While in the emergency room, patient had a CT scan of the abdomen pelvis performed and revealed a 4.5 x 3.6 x 3.1 cm thin- walled fluid collection at the undersurface of the right lobe of the liver anterior to the gallbladder fossa which has enlarged from previous imaging, although the fluid collection could represent an enlarging seroma/hematoma the interval enlargement with gas within the fluid collection and surrounding inflammation is most worrisome for developing abscess. As a result of these findings, patient has been admitted for further management. During my evaluation of patient, patient states since being discharged previously she was doing okay but started to have some pain today. She reports a subjective fever 101. Increased right upper quadrant abdominal pain and some chest pressure. Patient was seen on last admission and surgery opted not to do any exploratory of abdomen, because they felt that the imaging was a normal variant for patient. Unfortunately, she Anjali presents with worsening of this structure. She is currently denying any lightheadedness, dizziness, rigors, headache, bilious emesis, shortness of breath, dyspnea, or continued chest pain. Patient did have some loose stool. On this presentation she has an elevated white blood cell count to be more specific, patient's white blood cell count 14.7, hemoglobin 11.7, macro 35.6, neutrophils 91.3%, blood glucose 114, C- reactive protein is and 76.7 Hospital Course Hospital Course Hospital Course: María Liriano is a 49-year-old female who presented with abdominal pain and was admitted for suspected abscess formation and/or biliary leak in the gallbladder fossa after laparoscopic cholecystomy about a week ago. #Abdominal pain #Postoperative biliary leak #Possible postoperative abscess ? Patient underwent laparoscopic cholecystectomy on 12/03/2024 for acute cholecystitis. ? Unfortunately, patient has been admitted twice since the procedure for worsening abdominal pain, with CT abdomen suspicious for abscess formation and/or biliary leak. ? Discussed with general surgery, ordered HIDA scan 12/08/2024 without CCK which revealed radiotracer accumulation along the inferior margin of the liver suggestive of biliary leak. ? Patient states she has been having increased abdominal RUQ, epigastric, and now LUQ pain, in spite of Dilaudid, Percocet, Toradol. No peritoneal signs on examination. ? Given these findings, strong concern for worsening biliary leak requiring urgent ERCP. LFTs stable however, AST/ALT/ALP, total bilirubin normal. ? Discussed case with advanced GI, Dr. Richey, at [facility] who agreed patient needs ERCP as soon as possible. Discussed case with internal medicine, Dr. Vance, who graciously accepted patient to [facility]. Patient will be transported in guarded condition. ? Continue Zosyn 3.375 g every 6 hours for possible postoperative abscess. WBC improved from 14.7-12.8, no signs of sepsis. ? Toradol, Percocet, Dilaudid, simethicone for pain management. ? Continue LR at 100 mL/h. #Hypothyroidism ? Continue home levothyroxine 75 mcg. #Anxiety/depression ? Continue home sertraline 200 mg daily, Xanax. Total time spent on discharge: 60 minutes on chart review, counseling, documentation, and direct care with patient. Exam Data for Last 24 hours Vital signs and Labs for Last 24 Hours: Temp Pulse Resp BP Pulse Ox O2 Del Method 97.4 F L 61 18 106/59 L 92 L Room Air 12/09/24 08:00 12/09/24 08:00 12/09/24 08:00 12/09/24 08:00 12/09/24 08:00 12/09/24 11:00 Laboratory Results - last 24 hr 12/09/24 05:55: WBC 12.8 H, RBC 4.03 L, Hgb 10.0 L, Hct 32.4 L, MCV 80.4 L, MCH 24.8 L, MCHC 30.9 L, RDW 15.9, Plt Count 194, MPV 10.5 H, Neut % (Auto) 84.5 H, Lymph % (Auto) 8.3 L, [place] % (Auto) 5.1, Eos % (Auto) 1.4, Baso % (Auto) 0.2, Neut # (Auto) 10.8 H, Lymph # (Auto) 1.1, [place] # (Auto) 0.7, Eos # (Auto) 0.2, Baso # (Auto) 0.0, Sodium 139, Potassium 3.3 L, Chloride 104, Carbon Dioxide 29, Anion Gap 9.3, BUN 13 D, Creatinine 0.80, Estimated Creat Clear 86, Estimated GFR 76, Est GFR ( Amer) 92, Glucose 93, Calcium 8.4, Total Bilirubin 0.6, Direct Bilirubin 0.3, Conjugated Bilirubin 0.0, Indirect Bilirubin 0.3, Unconjugated Bilirubin 0.3, AST 16 D, ALT 17 D, Alkaline Phosphatase 77, Total Protein 5.6 L, Albumin 3.0 L D I & O for Last 24 hours: Intake & Output 12/06/24 12/07/24 12/08/24 12/09/24 23:59 23:59 23:59 23:59 Intake Total 100 / 100 270 / 270 1108.333 / 1108.333 Output Total 1100 / 1100 250 / 250 Balance 100 / 100 -830 / -830 858.333 / 858.333 Weight 117.934 kg 146.227 kg 144.741 kg Constitutional Constitutional: no acute distress and obese *Routine HEENT Exam Head: Present normocephalic Eye: Present EOMI and PERRL ENT: Present mucous membranes moist *Routine Neck Exam Neck: Present supple; Absent lymphadenopathy *Routine Respiratory Exam Respiratory: Present CTA bilaterally *Routine Cardiovascular Exam Cardiovascular: Present RRR *Routine Abdominal Exam Abdominal: Present soft, normoactive bowel sounds and tenderness Comments: Moderate tenderness to palpation in epigastric, right upper quadrant region, left upper quadrant. No peritoneal signs. Initial incision sites clean dry and intact. *Routine Extremities Exam Extremities: Absent cyanosis, clubbing or edema *Routine Skin Exam Skin: Present warm; Absent rash *Routine Neurological Exam Neurological: Present alert and oriented X3 Results Data Completed and Pending Labs on day of discharge: Labs from last 24 hours 12/09/24 05:55 WBC 12.8 H RBC 4.03 L Hgb 10.0 L Hct 32.4 L MCV 80.4 L MCH 24.8 L MCHC 30.9 L RDW 15.9 Plt Count 194 MPV 10.5 H Neut % (Auto) 84.5 H Lymph % (Auto) 8.3 L [place] % (Auto) 5.1 Eos % (Auto) 1.4 Baso % (Auto) 0.2 Neut # (Auto) 10.8 H Lymph # (Auto) 1.1 [place] # (Auto) 0.7 Eos # (Auto) 0.2 Baso # (Auto) 0.0 Sodium 139 Potassium 3.3 L Chloride 104 Carbon Dioxide 29 Anion Gap 9.3 BUN 13 D Creatinine 0.80 Estimated Creat Clear 86 Estimated GFR 76 Est GFR ( Amer) 92 Glucose 93 Calcium 8.4 Total Bilirubin 0.6 Direct Bilirubin 0.3 Conjugated Bilirubin 0.0 Indirect Bilirubin 0.3 Unconjugated Bilirubin 0.3 AST 16 D ALT 17 D Alkaline Phosphatase 77 Total Protein 5.6 L Albumin 3.0 L D DS: Diagnosis Discharge Diagnosis (1) Postoperative abdominal pain: Status: Acute Code(s): R10.9 - Unspecified abdominal pain; G89.18 - Other acute postprocedural pain (2) Bile leak: Status: Acute Code(s): K83.9 - Disease of biliary tract, unspecified Meds Home Medications and Allergies Home Medications ?Medication ?Instructions ?Recorded ?Confirmed ?Type sertraline 100 mg tablet 200 mg PO DAILY 03/26/18 History alprazolam 0.5 mg tablet 0.5 mg PO BIDP PRN Anxiety 0 09/14/19 12/08/24 History levothyroxine 75 mcg tablet 75 mcg PO DAILY 06/16/23 0 12/08/24 History albuterol sulfate 90 mcg/actuation 2 puff inhalation Q 4HP PRN 11/20/24 12/08/24 History aerosol inhaler Shortness Of Breath fluticasone propionate 50 1 spray intranasal DAILYP FL N 11/20/24 12/08/24 His tory mcg/actuation nasal Congestion spray,suspension levocetirizine 5 mg tablet 5 mg PO DAILY #30 tabs 11/1012/08/24 Rx dapagliflozin propanediol 5 mg 5 mg PO DAILY 12/03/24 12/08/24 History tablet (Farxiga) rosuvastatin 5 mg tablet 5 mg PO HS 12/03/24 12/08/24 History oxycodone-acetaminophen 5 mg-325 1 tab PO Q6HP PRN Mod erate Pain 12/04/24 12/08/24 Rx mg tablet (4-6) 3 days #12 tabs metoprolol succinate 100 mg 100 mg PO DAILY 12/06/24 0 12/08/24 History tablet,extended release 24 hr meloxicam 7.5 mg tablet 7.5 mg PO BIDP PRN Mild Pain 12/08/24 12/08/24 History (Scale Score 1-4) New Prescriptions to Start Prescriptions: Allergies Allergy/AdvReac Type Severity Reaction Status Date / Time No Known Allergies Allergy Verified 11/20/24 11:06 Discharge Plan Disposition Patient Disposition: er Short-Term Hosp Condition: Fair Discharge Order Discharge Orders: Discharge Order (Routine); Ordered 12/09/24 Ordered By: Maikel Almazan Follow up Plan Prescriptions/Medication Reconciliation: No Action levothyroxine 75 mcg tablet 75 mcg PO DAILY Patient Comments: TAKE 1 TABLET BY MOUTH DAILY albuterol sulfate 90 mcg/actuation HFA aerosol inhaler 2 puff inhalation Q4HP PRN (Reason: Shortness Of Breath) Patient Comments: INHALE 2 PUFFS INTO THE LUNGS EVERY 4 HOURS NEEDED FOR WHEEZING fluticasone propionate 50 mcg/actuation spray,suspension 1 spray intranasal DAILYP PRN (Reason: Congestion) Patient Comments: SHAKE LIQUID AND USE 1 SPRAY IN EACH NOSTRIL DAILY levocetirizine 5 mg tablet 5 mg PO DAILY Qty: 30 3RF alprazolam 0.5 MG tablet 0.5 mg PO BIDP PRN (Reason: Anxiety) meloxicam 7.5 mg tablet 7.5 mg PO BIDP PRN (Reason: Mild Pain (Scale Score 1-4)) sertraline 100 MG tablet 200 mg PO DAILY dapagliflozin propanediol [Farxiga] 5 mg tablet 5 mg PO DAILY rosuvastatin 5 mg tablet 5 mg PO HS oxycodone-acetaminophen 5-325 mg Tablet 1 tab PO Q6HP PRN (Reason: Moderate Pain (4-6)) 3 Days Qty: 12 0RF metoprolol succinate 100 mg tablet extended release 24 hr 100 mg PO DAILY Problem Reconciliation Problems Reviewed?: Yes Patient Discharge Instructions Patient Instructions: DI for Ascites, DI for Acute Abdominal Pain, DI for Leukocytosis, Stop Light Infection Print Language: Sami Providers Primary Care Provider: Mónica Adler Admit Provider: Maikel Almazan Attending Provider: Maikel Almazan
[2024-12-09 12:00] VITALS: BP 148/85; PULSE 62; RESP 16; TEMP 37; O2SAT 93
== END 2024-12-09 16:00 | disposition short-term general hospital (02) ==
LOC: ER 23:14 → 2ND 23:19
PROVIDERS: Nurse Practitioner Family; Admitting Provider Student in an Organized Health Care Education/Training Program; Emergency Provider Student in an Organized Health Care Education/Training Program; PCP Nurse Practitioner; Visit Provider Student in an Organized Health Care Education/Training Program
DX: K91.89 Other postprocedural complications and disorders of digestive system (principal); R18.8 Other ascites; R10.11 Right upper quadrant pain; G89.18 Other acute postprocedural pain; D72.829 Elevated white blood cell count, unspecified; R79.82 Elevated C-reactive protein (CRP); E03.9 Hypothyroidism, unspecified; F41.9 Anxiety disorder, unspecified; F32.A Depression, unspecified; E66.9 Obesity, unspecified; J45.909 Unspecified asthma, uncomplicated; E04.2 Nontoxic multinodular goiter; I11.0 Hypertensive heart disease with heart failure; E78.5 Hyperlipidemia, unspecified; I50.30 Unspecified diastolic (congestive) heart failure; Z90.49 Acquired absence of other specified parts of digestive tract; Z68.42 Body mass index [BMI] 45.0-49.9, adult; Z79.890 Hormone replacement therapy; Z79.51 Long term (current) use of inhaled steroids; Z79.899 Other long term (current) drug therapy
CPT/HCPCS: 36415; 71045; 74177; 78226; 80048; 80053; 80076; 81001; 83690; 84484; 84703; 85025; 85610; 85730; 86140; 93005; 96365; 96366; 96375; 96376; 99284; A9537; G0378; J1171; J1650; J1885; J2405; J2543; J7120; Q9967

== ENCOUNTER 2025-01-04 14:23 | Outpatient (CLI) | payer MEDICARE, OTHER, SELFPAY ==
--- NOTE | 2025-01-04 14:27 | CT_ITS ---
FINAL REPORT TECHNIQUE: Thin section axial images were obtained from the lung bases to the pubic symphysis without IV contrast. Coronal and sagittal reconstruction images were obtained from the axial data. Exam was performed using dose reduction technique. This study was performed with techniques to keep radiation doses as low as reasonably achievable (ALARA). Individualized dose reduction techniques using automated exposure control or adjustment of mA and/or kV according to the patient's size were employed. CLINICAL HISTORY: ABD PAIN, right flank pain, hx kidney stones COMPARISON: 12/08/2024 FINDINGS: No obstructing or ureteral stones or right side, and no hydronephrosis is present. The gallbladder is surgically absent. In the interval since the prior CT of December 08 there has been interval placement of a common bile duct stent. The collection noted on the prior CT and the underside of the liver and the gallbladder fossa has decreased in size, now measuring 2.2 x 2.8 cm, was previously 5.1 x 4.2 cm. This collection still contains a small focus of air. The remaining unenhanced solid abdominal organs are unremarkable. There is no evidence of small bowel obstruction. The appendix is normal. GI tract is without acute abnormality. There is no lymphadenopathy or ascites. No acute osseous abnormality is identified. IMPRESSION: 1. No renal or ureteral stones. No hydronephrosis. 2. There has been interval placement of a common bile duct stent, and the collection seen in the gallbladder fossa on the prior exam has decreased in size. Reviewed, Interpreted and Dictated by Csai Craig MD Transcribed by Radha Woody Authenticated and . [facility]
== END 2025-01-04 23:59 | disposition home or self-care (01) ==
LOC: RAD 14:24
PROVIDERS: PCP Nurse Practitioner; Visit Provider Urology
DX: R10.9 Unspecified abdominal pain (principal); Z96.89 Presence of other specified functional implants
CPT/HCPCS: 74176

== ENCOUNTER 2025-03-03 17:07 | Emergency (ER) | payer MEDICARE, OTHER, SELFPAY ==
--- OUTSIDE RECORDS SUMMARY | 2025-01-23 11:30 | XMS_ITS | Encounter Summary ---
Author Organization [facility] Address [address] [place] [address] Care Team Providers Care Mold Finisher Name Role Phone Mónica Adler APRN Primary Care Provider [phone] Source Comments This information has been disclosed to you from confidential records protectfrom disclosure by state law. You shall make no further disclosure of thisinformation without the specific, written, and informed release of theindividual to whom it pertains, or as otherwise permitted by law. A generalauthorization for the release of medical or other information is not sufficientfor the purposes of the release of HIV test results or diagnoses. [id number] Health Reason for Visit * Auth/Cert (Routine) Specialty Diagnoses / Procedures Referred By Contac t Referred To Contact Gastroenterology Diagnoses Bile leak Procedures EGD [facility] ENDOSCOPY [address] [place] [address] Phone: tel: Referral ID Status Reason Start Date Expiration Date Visits Re quested Visits Authorized [id number] 1 1 Encounter Details Date Type Department Care Team (Latest Contact Info) Description 01/23/2025 12:30 PM EDT - 01/23/2025 3:59 PM EDT Hospital Encounter [facility] ENDOSCOPY [address] [place] [address] Ed Richey MD [address] [place] [address] Bile leak Discharge Disposition: Home or Self Care WITHOUT Home Care Services Social History Tobacco Use Types Packs/Day Years Used Date Smoking Tobacco: Never Smokeless Tobacco: Never Alcohol Use Standard Drinks/Week Comments Never 0 (1 standard drink = 0.6 oz pur e alcohol) [facility] Utilities Answer Date Recorded In the past 12 months has th e electric, gas, oil, or water company threatened to shut off services in your home? No 12/09/2024 AUDIT-C Answer Date Recorded Q1: How often do you have a drink containing alcohol? Never 12/09/2024 Q2: How many drinks containi ng alcohol do you have on a typical day when you are drinking? Patient does not drink Q3: How often do you have si x or more drinks on one occasion? Never 12/09/2024 Hunger Vital Sign Answer Date Recorded Within the past 12 months, y ou worried that your food would run out before you got the money to buy more. Never true 12/10/19 25 Within the past 12 months, t he food you bought just didn't last and you didn't have money to get more. Never true 12/09/2024 PRAPARE - Transportation Answer Date Re corded In the past 12 months, has l ack of transportation kept you from medical appointments or from getting medications? No 11/12 In the past 12 months, has l ack of transportation kept you from meetings, work, or from getting things needed for daily living? No 12/09/2024 Housing Stability Vital Sign Answer Swapnil e Recorded In the last 12 months, was t here a time when you were not able to pay the mortgage or rent on time? No 12/09/2024 In the past 12 months, how m any times have you moved where you were living? 0 12/09/2024 At any time in the past 12 m [facility], were you homeless or living in a halfway (including now)? No 12/09/2024 Comments No Sex and Gender Information Value Date Recorded Sex Assigned at Not on file Legal Sex Female 4:19 PM EST Gender Identity Not on file Sexual Orientation Not on file documented as of this encounter Last Filed Vital Signs Vital Sign Reading Time Taken Comments Blood Pressure 136/82 01/23/2025 3:30 PM EDT Pulse 72 01/23/2025 1:50 PM EDT Temperature 36.7 C (98.1 F) 01/23/2025 2:54 PM EDT Respiratory Rate 16 01/23/2025 3:30 PM EDT Oxygen Saturation 95% 01/23/2025 3:30 PM EDT Inhaled Oxygen Concentration 95% 01/23/2025 3 :30 PM EDT Weight 140.6 kg (310 lb) 01/23/2025 1:50 PM EDT Height 172.7 cm (5' 8 ) 01/23/2025 1:50 PM EDT Body Mass Index 47.14 01/23/2025 1:50 PM EDT documented in this encounter Discharge Instructions * Discharge Instructions* Laura Rios RN - 01/23/2025 3:05 PM EDT [facility] ENDOSCOPY INSTRUCTION/RELEASE FORMS Date: 01/23/2025 Procedure: Procedure(s): EGD STENT REMOVAL IF YOU DEVELOP EXCESSIVE BLEEDING, UNCONTROLLED PAIN OR SHORTNESS OF BREATH, GO TO THE EMERGENCY DEPARTMENT FOR AN EXAMINATION. IF YOU DEVELOP CHILLS, FEVER (greater than 100.5) OR HAVE CONCERNS ABOUT YOUR RECOVERY, CALL Dr. Richey AT [phone]. BECAUSE OF THE SEDATION YOU RECEIVED FOR YOUR PROCEDURE, PLEASE FOLLOW THE INSTRUCTIONS BELOW: You may experience lightheadedness and nausea. Rest today; no strenuous activity. DO NOT: Drink alcoholic beverages today. Make serious financial or legal decisions today. Operate automobiles, heavy machinery or use any appliances today. Diet: Resume your diet as tolerated or recommended by your primary care provider. Medications: The treatment you received today does not change your current medications. New/revised prescriptions given to patient?: No. Side Effects You May Experience: Sore throat. Cramping, gas, bloating, belching. Additional: Follow up with your PCP for routine appointment. All Patient Belongings Have Been Returned: (patient initials) I understand and acknowledge receipt of the above instructions. Patient or Guardian Signature Date/Time Physician's or R.N.'s Signature Date/Time The discharge instructions have been reviewed with the patient and/or Guardian. Patient and/or Guardian signed and retained a printed copy. documented in this encounter Medications at Time of Discharge albuterol 90 mcg/actuation Inhl inhaler Inhale 4 puffs into the lungs every 6 hours as needed for Wheezing or Shortness of Breath. 18 g 12/14/2024 3:45 PM EDT 12/14/2024 ALPRAZolam (NIRAVAM) 0.5 MG dissolvable tablet Take 1 tablet (0.5 mg total) by mouth 2 times a day as needed for Anxiety. dapagliflozin propanediol (FARXIGA) 5 mg Tab tablet Take 1 tablet (5 mg total) by mouth daily. levothyroxine (SYNTHROID) 75 MCG tablet Take 1 tablet (75 mcg total) by mouth every morning before breakfast. metoprolol succinate (TOPROL-XL) 100 MG 24 hr tablet Take 1 tablet (100 mg total) by mouth daily. polyethylene glycol (MIRALAX) 17 gram/dose powder Mix 1 capful (17 g) in 8 ounces of liquid and take by mouth daily as directed as needed to relieve constipation. 238 g 12/14/2024 rosuvastatin (CRESTOR) 5 MG tablet Take 1 tablet (5 mg total) by mouth at bedtime. senna (SENOKOT) 8.6 mg tablet Take 2 tablets by mouth daily as needed for Constipation. 30 tablet 12/14/2024 sertraline (ZOLOFT) 100 MG tablet Take 2 tablets (200 mg total) by mouth daily. documented as of this encounter Progress Notes * Lila Mckeon RN - 01/22/2025 5:52 PM EDT VML with Pt for reminder call for egd on 01/23 with an arrival time of 1200. Pt has previously confirmed details. Left my number for questions. * Sonja Redman RN - 01/15/2025 1:38 PM EDT Patient confirms 12pm arrival with escort on 01/23/25, patient was asked to hold farxiga 3 days prior to procedure and npo after midnight. 01/15/25 1333 Pre-op Phone Call Call Start Time 1334 Surgery Time Verified Yes Arrival Time Verified 1200 Surgery Location Verified Yes Remind patient to bring picture ID and insurance card Yes Medical History Reviewed Yes NPO Status Reinforced Yes Ride and Caregiver Arranged Yes Instructions to bring current medication list Yes Free Lance Artist Arranged/Needed No Instructions Understood? Yes documented in this encounter H&P Notes * Mahin Dorantes MD - 01/23/2025 1:31 PM EDT [facility] PRE-SEDATION ASSESSMENT, HISTORY & PHYSICAL Date: 01/23/2025 María Mahajan is a 49 y.o. year old female Pre-Procedure Diagnosis/Procedure Indication: Biliary stent removal Planned Procedure: EGD with stent removal NPO for solids >8 hours, NPO for liquids 6-8 hours Past Medical History Past Medical History: Diagnosis Date Anxiety Asthma CHF (congestive heart failure) ([facility]) HLD (hyperlipidemia) HTN (hypertension) Multiple thyroid nodules Difficult intubation Unanswered Problem List[1] Past Surgical History Past Surgical History: Procedure Laterality Date ERCP N/A 12/10/2024 Procedure: ERCP; Surgeon: Ed Richey MD; Location: ENDOSCOPY; Service: Gastroenterology; Laterality: N/A; HERNIA REPAIR N/A Medications Home Medications Medication Sig Taking? Last Dose albuterol 90 mcg/actuation Inhl inhaler Inhale 4 puffs into the lungs every 6 hours as needed for Wheezing or Shortness of Breath. ALPRAZolam (NIRAVAM) 0.5 MG dissolvable tablet Take 1 tablet (0.5 mg total) by mouth 2 times a day as needed for Anxiety. dapagliflozin propanediol (FARXIGA) 5 mg Tab tablet Take 1 tablet (5 mg total) by mouth daily. levothyroxine (SYNTHROID) 75 MCG tablet Take 1 tablet (75 mcg total) by mouth every morning before breakfast. metoprolol succinate (TOPROL-XL) 100 MG 24 hr tablet Take 1 tablet (100 mg total) by mouth daily. polyethylene glycol (MIRALAX) 17 gram/dose powder Mix 1 capful (17 g) in 8 ounces of liquid and take by mouth daily as directed as needed to relieve constipation. rosuvastatin (CRESTOR) 5 MG tablet Take 1 tablet (5 mg total) by mouth at bedtime. senna (SENOKOT) 8.6 mg tablet Take 2 tablets by mouth daily as needed for Constipation. sertraline (ZOLOFT) 100 MG tablet Take 2 tablets (200 mg total) by mouth daily. Allergies: No Known Allergies Abbreviated Review of Systems (ROS) Functional Capacity: CHRISTIANSON ACTIVITY SCALE: 3 - Walking on a flat surface for one or two blocks. Chest Pain: no Shortness of Breath/Dyspnea or Exertion: no Recent URI: no Airway, ASA Score & Sedation Specific History Concerns Airway - 2 ASA - 3 Focused Physical Exam: Height ; Weight ; BMI There is no height or weight on file to calculate BMI. There were no vitals filed for this visit. Neuro: AAO X 3 Cardiovascular: S1 and S2 heard Respiratory: B/l AE present Sedation Plan: MAC Antibiotic prophylaxis is not indicated. [1] Patient Active Problem List Diagnosis Right upper quadrant abdominal pain Headache Hypothyroidism Anxiety and depression Hypoxia, sleep related Wheezing Hematuria Cosigned by Ed Richey MD at 01/23/2025 4:03 PM EDT Associated attestation - Ed Richey MD - 01/23/2025 4:03 PM EDT I have reviewed and concur with the GI fellow's pre-procedure H&P. Ed Richey MD documented in this encounter Procedure Notes * Mahin Dorantes MD - 01/23/2025 2:36 PM EDT EGD STENT REMOVAL Brief Op Note María Mahajan 01/23/2025 Pre-op Diagnosis: Bile leak Post-op Diagnosis: Biliary stent removed Procedure(s): EGD STENT REMOVAL Surgeon(s): MD Ed Bacon MD Anesthesia: MAC (Monitor Anesthesia Care) Staff: Endoscopy Nurse: Keke Ayala, RN; Aixa Webb, RN; Dav Whitfield RN Estimated Blood Loss: Minimal Specimens: Drains: There were no complications unless listed below. MAHIN DORANTES MD Date: 01/23/2025 Time: 2:46 PM Cosigned by Ed Richey MD at 01/23/2025 4:04 PM EDT Associated attestation - Ed Richey MD - 01/23/2025 4:04 PM EDT I concur with the Brief Op note. Ed Richey MD * Ed Richey MD - 01/23/2025 2:10 PM EDT [id number] Procedure Date: 01/23/2025 2:10 PM Patient Name: María Mahajan Date of : 1975 Admit Type: Outpatient Age: 49 Gender: Female Note Status: Finalized Attending MD: Ed Richey MD, [id number] Procedure: Upper GI endoscopy Indications: Biliary stent removal. The patient is a 49 y/o female who was hospitalized at [facility] in November 2024 following transfer from [facility]. She s/p lap cholecystectomy on 12/03/2024 for acute cholecystitis. The procedure was uneventful, and she was discharged on the same day. She returned 2 days later with abdominal pain. WBC was normal and CT showed a collection in the GB fossa which a surgeon thought was an expected post-op finding. She was discharged but returned with recurrent/persistent pain. WBC-14,000. Repeat CT showed concern for abscess and HIDA showed radiotracer beneath the liver with concern for bile leak. She was transferred to [facility]. ERCP on 12/10/2024 revealed no evidence of bile leak or retained stones. A biliary sphincterotomy was performed and a 7 Fr x 9 cm double-pigtail biliary stent was placed. She is currently asymptomatic and has no drains. EGD was planned for biliary stent removal. Providers: Ed Richey MD, Mahin Dorantes (Fellow) Referring MD: Medicines: See the Anesthesia note for documentation of the administered medications Complications: No immediate complications. Procedure: Pre-Anesthesia Assessment: - Prior to the procedure, a History and Physical was performed, and patient medications, allergies and sensitivities were reviewed. The patient's tolerance of previous anesthesia was reviewed. - The risks and benefits of the procedure and the sedation options and risks were discussed with the patient. All questions were answered and informed consent was obtained. - The anesthesia plan was to use monitored anesthesia care (MAC). After obtaining informed consent, the endoscope was passed under direct vision. Throughout the procedure, the patient's blood pressure, pulse, and oxygen saturations were monitored continuously. The Endoscope was introduced through the mouth, and advanced to the second part of duodenum. The upper GI endoscopy was accomplished without difficulty. The patient tolerated the procedure well. Findings: The procedure was performed using an Olympus duodenoscope. Limited views of the stomach were normal. Endoscopic views revealed a pigtail biliary stent extending from the major papilla which was removed using a snare. Estimated Blood Loss: Estimated blood loss was minimal. Impression: - Successful biliary stent removal. Recommendation: - Resume previous diet. - Return to referring physician at the next available appointment. - The findings and recommendations were discussed with the patient. - Patient has a contact number available for emergencies. The signs and symptoms of potential delayed complications were discussed with the patient. Return to normal activities tomorrow. Written discharge instructions were provided to the patient. Procedure Code(s): --- Professional --- 69097, GC, Esophagogastroduodenoscopy, flexible, transoral; with removal of foreign body(s) Diagnosis Code(s): --- Professional --- Z46.59, Encounter for fitting and adjustment of other gastrointestinal appliance and device CPT copyright 2022 [employer]. All rights reserved. The codes documented in this report are preliminary and upon foundry worker review may be revised to meet current compliance requirements. Attending Participation: I was present and participated during the entire procedure, including non-bryant portions. Ed Richey MD 01/23/2025 3:06:33 PM This report has been signed electronically.Ed Richey MD Mahin Dorantes, Total Procedure Duration Time 0 hours 3 minutes 43 seconds Scope In: 2:41:36 PM Scope Out: 2:45:[address] [place] [address], [facility] documented in this encounter Plan of Treatment Not on file documented as of this encounter Procedures Procedure Name Priority Date/Time Associated Diagnosis Comments EGD EGD/Sm Bowel 01/23/2025 2:32 PM EDT Bile leak Special Needs ref: Giovanna Wyatt UPPER GI ENDOSCOPY Routine 01/23/2025 2:10 PM EDT documented in this encounter Results * UPPER GI ENDOSCOPY (01/23/2025 2:10 PM EDT) 01/23/2025 2:10 PM EDT Narrative [facility] - 01/23/2025 3:06 PM EDT [id number] Procedure Date: 01/23/2025 2:10 PM Patient Name: María Mahajan Date of : 1975 Admit Type: Outpatient Age: 49 Gender: Female Note Status: Finalized Attending MD: Ed iRchey MD, [id number] Procedure: Upper GI endoscopy Indications: Biliary stent removal. The patient is a 49 y/o female who was hospitalized at [facility] in November 2024 following transfer from [facility]. She s/p lap cholecystectomy on 12/03/2024 for acute cholecystitis. The procedure was uneventful, and she was discharged on the same day. She returned 2 days later with abdominal pain. WBC was normal and CT showed a collection in the GB fossa which a surgeon thought was an expected post-op finding. She was discharged but returned with recurrent/persistent pain. WBC-14,000. Repeat CT showed concern for abscess and HIDA showed radiotracer beneath the liver with concern for bile leak. She was transferred to [facility]. ERCP on 12/10/2024 revealed no evidence of bile leak or retained stones. A biliary sphincterotomy was performed and a 7 Fr x 9 cm double-pigtail biliary stent was placed. She is currently asymptomatic and has no drains. EGD was planned for biliary stent removal. Providers: Ed Richey MD, Mahin Dorantes (Fellow) Referring MD: Medicines: See the Anesthesia note for documentation of the administered medications Complications: No immediate complications. Procedure: Pre-Anesthesia Assessment: - Prior to the procedure, a History and Physical was performed, and patient medications, allergies and sensitivities were reviewed. The patient's tolerance of previous anesthesia was reviewed. - The risks and benefits of the procedure and the sedation options and risks were discussed with the patient. All questions were answered and informed consent was obtained. - The anesthesia plan was to use monitored anesthesia care (MAC). After obtaining informed consent, the endoscope was passed under direct vision. Throughout the procedure, the patient's blood pressure, pulse, and oxygen saturations were monitored continuously. The Endoscope was introduced through the mouth, and advanced to the second part of duodenum. The upper GI endoscopy was accomplished without difficulty. The patient tolerated the procedure well. Findings: The procedure was performed using an Olympus duodenoscope. Limited views of the stomach were normal. Endoscopic views revealed a pigtail biliary stent extending from the major papilla which was removed using a snare. Estimated Blood Loss: Estimated blood loss was minimal. Impression: - Successful biliary stent removal. Recommendation: - Resume previous diet. - Return to referring physician at the next available appointment. - The findings and recommendations were discussed with the patient. - Patient has a contact number available for emergencies. The signs and symptoms of potential delayed complications were discussed with the patient. Return to normal activities tomorrow. Written discharge instructions were provided to the patient. Procedure Code(s): --- Professional --- 58912, GC, Esophagogastroduodenoscopy, flexible, transoral; with removal of foreign body(s) Diagnosis Code(s): --- Professional --- Z46.59, Encounter for fitting and adjustment of other gastrointestinal appliance and device CPT copyright 2022 [employer]. All rights reserved. The codes documented in this report are preliminary and upon foundry worker review may be revised to meet current compliance requirements. Attending Participation: I was present and participated during the entire procedure, including non-bryant portions. Ed Richey MD 01/23/2025 3:06:33 PM This report has been signed electronically.Ed Richey MD Mahin Dorantes, Total Procedure Duration Time 0 hours 3 minutes 43 seconds Scope In: 2:41:36 PM Scope Out: 2:45:[address] [place] [address], [id number] us Attending Provider Unknown PROCEDURE/MINOR SURGI CHLOE ORDERABLES Final Result [facility] documented in this encounter Visit Diagnoses Diagnosis Bile leak Unspecified disorder of biliary tract documented in this encounter Administered Medications Inactive Administered Medications - up to 3 most recent administrations Medication Order MAR Action Action Date Dose Rate Site sodium chloride 0.9 % IV infusion 50 mL/hr, Intravenous, Continuous, Starting on Wed01/23/25 at 1400, Pre-procedure(GI)Indications:Bile leak Restarted 01/23/2025 2:48 PM EDT New Bag 01/23/2025 1:56 PM EDT 50 mL/hr 50 mL/hr documented in this encounter Active and Recently Administered Medications Times are shown in EDT. Continuous Medication Order 01/21/2025 01/22/2025 01/23/2025 sodium chloride 0.9 % IV infusion 50 mL/hr, Intravenous, Continuous, Starting on Wed01/23/25 at 1400, Pre-procedure(GI) 1356 (New Bag - Prov ider: Greta Williamson RN)1431 (Continued by Anesthesia - Provider: Radha Mackey CRNA)1447 (Paused - Provider: Radha Mackey CRNA - Comment: Switch to gravity)1448 (Restarted - Provider: Radha Mackey CRNA) documented in this encounter Care Teams Mold Finisher Relationship Specialty Start Date End Date Mónica Adler APRN [address] [place], [place] [address] PCP - General Stock Preparation Supervisor 12/12/24 documented as of this encounter
--- OUTSIDE RECORDS SUMMARY | 2025-01-23 12:31 | XMS_ITS | Encounter Summary ---
Author Organization [facility] Address [address] [place] [address] Care Team Providers Care Tongue Presser Name Role Phone Mónica Adler APRN Primary Care Provider [phone] Source Comments This information has been disclosed [...] release of HIV test results or diagnoses. [id number] Health Reason for Visit * Auth/Cert (Routine) Specialty Diagnoses / Procedures Referred By Contac t Referred To Contact Gastroenterology Diagnoses Bile leak Procedures EGD [facility] ENDOSCOPY [address] [place] [address] Phone: tel: Referral ID Status Reason Start Date Expiration Date Visits Re quested Visits Authorized [id number] 1 1 Encounter Details Date Type Department Care Team (Late st Contact Info) Description 01/23/2025 1:31 PM EDT - 01/23/2025 2:31 PM EDT Surgery [facility] ENDOSCOPY [address] [place] [address] Ed Richey MD [address] [place] [address] EGD STENT REMOVAL Surgery Details Date/Time Status Location OR Service Patient Class Case Class Case Type Trauma Case? 01/23/2025 1:31 PM Posted ENDOSCOPY E4 Gastroenterology Hosp OP Surg/Ambul atory EGD/Sm Bowel Panel 1 Procedure LRB Anes Op Region Wound Class Comments EGD STENT REMOVAL N/A MAC (Monitor A nesthesia Care) Clean Contaminated Surgeon Surgeon Role Service Panel Mahin Dorantes MD Fellow Gastroenterology 1 Ed Richey MD Primary Gastroenterology 1 Special Needs ref: Giovanna Wyatt documented in this encounter Social History Tobacco Use Types Packs/Day Years Used Date Smoking Tobacco: Never Smokeless Tobacco: Never Alcohol Use Standard Drinks/Week Comments Never 0 (1 standard drink = 0.6 oz pur e alcohol) [facility] Utilities Answer Date Recorded In the past [...] any time in the past 12 m [facility], were you homeless or living in a penitentiary (including now)? No 12/09/2024 Comments No Sex and Gender Information Value Date Recorded Sex Assigned at Not on file Legal Sex Female 4:19 PM EST Gender Identity Not on file Sexual Orientation Not on file documented as of this encounter Last Filed Vital Signs Vital Sign Reading Time Taken Comments Blood Pressure 131/101 01/23/2025 1:50 PM EDT Pulse 72 01/23/2025 1:50 PM EDT Temperature 36.7 C (98.1 F) 01/23/2025 1:50 PM EDT Respiratory Rate 16 01/23/2025 1:50 PM EDT Oxygen Saturation 99% 01/23/2025 1:50 PM EDT Inhaled Oxygen Concentration 99% 01/23/2025 1 :50 PM EDT Weight 140.6 kg (310 lb) 01/23/2025 1:50 PM EDT Height 172.7 cm (5' 8 ) 01/23/2025 1:50 PM EDT Body Mass Index 47.14 01/23/2025 1:50 PM EDT documented in this encounter Discharge Instructions * Discharge Instructions* Laura Rios RN - 01/23/2025 3:05 PM EDT [facility] ENDOSCOPY INSTRUCTION/RELEASE FORMS Date: 01/23/2025 Procedure: Procedure(s): EGD STENT REMOVAL IF YOU DEVELOP EXCESSIVE BLEEDING, UNCONTROLLED PAIN OR SHORTNESS OF BREATH, GO TO THE EMERGENCY DEPARTMENT FOR AN EXAMINATION. IF YOU DEVELOP CHILLS, FEVER (greater than 100.5) OR HAVE CONCERNS ABOUT YOUR RECOVERY, CALL Dr. Richey AT [phone]. BECAUSE OF THE SEDATION YOU RECEIVED FOR [...] Instructions to bring current medication list Yes Straight Slicing Machine Operator Arranged/Needed No Instructions Understood? Yes documented in this encounter H&P Notes * Mahin Dorantes MD - 01/23/2025 1:31 PM EDT [facility] PRE-SEDATION ASSESSMENT, HISTORY & PHYSICAL Date: 01/23/2025 María Mahajan is a 49 y.o. year old female Pre-Procedure Diagnosis/Procedure Indication: Biliary stent removal Planned Procedure: EGD with stent removal NPO for solids >8 hours, NPO for liquids 6-8 hours Past Medical History Past Medical History: Diagnosis Date Anxiety Asthma CHF (congestive heart failure) ([facility]) HLD (hyperlipidemia) HTN (hypertension) Multiple thyroid nodules [...] (Monitor Anesthesia Care) Staff: Endoscopy Nurse: Keke Ayala RN; Aixa Webb RN; Dav Whitfield RN Estimated Blood Loss: [...] Richey MD - 01/23/2025 2:10 PM EDT [id number] Procedure Date: 01/23/2025 2:10 PM Patient Name: María Mahajan Date of : 1975 Admit Type: Outpatient Age: 49 Gender: Female Note Status: Finalized Attending MD: Ed Richey MD, [id number] Procedure: Upper GI endoscopy Indications: Biliary stent removal. The patient is a 49 y/o female who was hospitalized at [facility] in November 2024 following transfer from [facility]. She s/p lap cholecystectomy on 12/03/2024 for [...] for bile leak. She was transferred to [facility]. ERCP on 12/10/2024 revealed no evidence [...] the patient. Procedure Code(s): --- Professional --- 59058, GC, Esophagogastroduodenoscopy, flexible, transoral; with removal of foreign body(s) Diagnosis Code(s): --- Professional --- Z46.59, Encounter for fitting and adjustment of other gastrointestinal appliance and device CPT copyright 2022 [employer]. All rights reserved. The codes documented in this report are preliminary and upon speech therapy director review may be revised to meet current compliance requirements. Attending Participation: I was present and participated during the entire procedure, including non-bryant portions. Ed Richey MD 01/23/2025 3:06:33 PM This report has been signed electronically.Ed Richey MD Mahin Dorantes, Total Procedure Duration Time 0 hours 3 minutes 43 seconds Scope In: 2:41:36 PM Scope Out: 2:45:[address] [place] [address], [id number] documented in this encounter Plan of Treatment [...] Narrative PROVATION - 01/23/2025 3:06 PM EDT [id number] Procedure Date: 01/23/2025 2:10 PM Patient Name: María Mahajan Date of : 1975 Admit Type: Outpatient Age: 49 Gender: Female Note Status: Finalized Attending MD: Ed Richey MD, [id number] Procedure: Upper GI endoscopy Indications: Biliary stent removal. The patient is a 49 y/o female who was hospitalized at [facility] in November 2024 following transfer from [facility]. She s/p lap cholecystectomy on 12/03/2024 for [...] for bile leak. She was transferred to [facility]. ERCP on 12/10/2024 revealed no evidence [...] the patient. Procedure Code(s): --- Professional --- 12937, GC, Esophagogastroduodenoscopy, flexible, transoral; with removal of foreign body(s) Diagnosis Code(s): --- Professional --- Z46.59, Encounter for fitting and adjustment of other gastrointestinal appliance and device CPT copyright 2022 [employer]. All rights reserved. The codes documented in this report are preliminary and upon speech therapy director review may be revised to meet current compliance requirements. Attending Participation: I was present and participated during the entire procedure, including non-bryant portions. Ed Richey MD 01/23/2025 3:06:33 PM This report has been signed electronically.Ed Richey MD Mahin Mirandarapu, Total Procedure Duration Time 0 hours 3 minutes 43 seconds Scope In: 2:41:36 PM Scope Out: 2:45:[address] [place] [address], [id number] us Attending Provider Unknown PROCEDURE/MINOR SURGI CHLOE ORDERABLES Final Result PROVATION documented in this encounter Visit Diagnoses Diagnosis Bile leak Unspecified disorder of biliary tract Bile leak Unspecified disorder of biliary tract [...] CRNA) documented in this encounter Care Teams Tongue Presser Relationship Specialty Start Date End Date Mónica Adler APRN [address] [place] [address] PCP - General Nylon Winder 12/12/24 documented as of this encounter
--- OUTSIDE RECORDS SUMMARY | 2025-01-23 13:31 | XMS_ITS | Encounter Summary ---
Author Organization [facility] Address [address] [place] [address] Care Team Providers Care Assembly Mechanic Name Role Phone Mónica Adler APRN Primary Care Provider [phone] Source Comments This information has been disclosed [...] release of HIV test results or diagnoses. [id number] Health Reason for Visit * Auth/Cert (Routine) Specialty Diagnoses / Procedures Referred By Contac t Referred To Contact Gastroenterology Diagnoses Bile leak Procedures EGD [facility] ENDOSCOPY [address] [place] [address] Phone: tel: Referral ID Status Reason Start Date Expiration Date Visits Re quested Visits Authorized [id number] 1 1 Encounter Details Date Type Department Care Team (Late st Contact Info) Description 01/23/2025 2:31 PM EDT Anesthesia Event [facility] ENDOSCOPY [address] [place] [address] Colton German MD [address] [place] [id number] Anesthesia Record Procedure Summary Procedure Name Responsible Anesthesiologist Anesthesia Start Time Anesthesia Stop Time EGD STENT REMOVAL Colton German MD 01/23/25 1431 01/23 1500 Events Date Time Event Comment 01/23/2025 1431 ANPTVER 1431 An Start 1431 An Start Data 1436 Quick Note Hi Albino NC utili zed, visible chest rise without obvious obstruction. 100% FiO2 at 40LPM 1438 An Induction 1440 Time Out 1448 An Emergence 1449 Remove Airway Device 1450 an stop data 1500 An Stop Meds Name Total lidocaine (PF) 20 mg/mL (2%) injection - Intravenous 100 mg propofol (DIPRIVAN) 10 mg/ml IV injectio n (BOLUS) 70 mg propofol (DIPRIVAN) 10 mg/ml infusion - 100mL VIAL SIZE 210.9 mg sodium chloride 0.9 % IV infusion 100 mL * Agents Name N2O Auxiliary O2 O2 N2O Air * Blood No blood administrations on file. Lines, Drains, and Airways Type Details Placement Removal Peripheral IV 01/23/25; 1351; 22 G ; Right; Antecubital; Alcohol; None; Standard; Tolerated well 01/23/25 1351 by Greta Williamson RN 01/23/25 1538 by Laura Rios RN Anesthesia Airway Device 01/23/25; 1419; (HiFLONC); I.V.; 01/23/25; 1449 01/23/25 1419 by Radha Mackey CRNA 01/23/25 1449 by Radha Mackey CRNA documented in this encounter Social History Tobacco Use Types Packs/Day Years Used Date Smoking Tobacco: Never Smokeless Tobacco: Never Alcohol Use Standard Drinks/Week Comments Never 0 (1 standard drink = 0.6 oz pur e alcohol) [facility] Utilities Answer Date Recorded In the past 12 months has [employer], gas, oil, or water [employer] threatened to shut off services in your [...] any time in the past 12 m [facility], were you homeless or living in a retirement (including now)? No 12/09/2024 Comments No Sex and Gender Information Value Date Recorded Sex Assigned at Not on file Legal Sex Female 4:19 PM EST Gender Identity Not on file Sexual Orientation Not on file documented as of this encounter Progress Notes * Colton German MD - 01/23/2025 3:31 PM EDT Anesthesia Post Note Patient: María Liriano Procedure(s) Performed: Procedure(s): EGD STENT REMOVAL Anesthesia type: MAC Patient location: Endoscopy PACU Airway: Patent Post pain: Adequate analgesia Nausea / Vomiting: Absent Post-operative Hydration Status: Adequate Post assessment: no apparent anesthetic complications Last Vitals: Vitals: 01/23/25 1500 01/23/25 1510 01/23/25 1520 01/23/25 1530 BP: (!) 127/97 131/73 134/78 136/82 BP Location: Patient Position: Pulse: Resp: 16 16 16 16 Temp: TempSrc: SpO2: 96% 97% 96% 95% Weight: Height: Last Temperature: 98.1 ??F (36.7 ??C) (01/23/2025 2:54 PM) Post vital signs: stable Level of consciousness: awake Complications: There were no known notable events for this encounter. documented in this encounter H&P Notes * Colton German MD - 01/23/2025 12:35 PM EDT [facility] DEPARTMENT OF ANESTHESIOLOGY PRE-PROCEDURAL EVALUATION María Liriano is a 49 y.o. year old female presenting for: Procedure(s): EGD STENT REMOVAL Surgeon: Ed Richey MD Chief Complaint Bile leak Review of Systems Anesthesia Evaluation Patient summary reviewed, nursing notes reviewed and Previous anesthetic and pre-operative note copied, reviewed and updated as necessary. No history of anesthetic complications Cardiovascular: Exercise tolerance: Mead Met score: 3 - Walking on a flat surface for one or two blocks. (+) dysrhythmias and hyperlipidemia. Hypertension is well controlled. (-) angina, orthopnea, PND. Neuro/Muscoloskeletal/Psych: (+) back problem, anxiety and depression. (-) seizures, TIA, CVA, arthritis. Pulmonary: (+) asthma. Recent URI. GI/Hepatic/Renal: (-) GERD, liver disease, renal disease. Endo/Other: (+) hypothyroidism and anemia. (-) diabetes mellitus. Past Medical History Past Medical History: Diagnosis Date ??? Anxiety ??? Asthma ??? CHF (congestive heart failure) (CMS-HCC) ??? HLD (hyperlipidemia) ??? HTN (hypertension) ??? Multiple thyroid nodules Past Surgical History Past Surgical History: Procedure Laterality Date ??? ERCP N/A 12/10/2024 Procedure: ERCP; Surgeon: Ed Richey MD; Location: ENDOSCOPY; Service: Gastroenterology; Laterality: N/A; ??? HERNIA REPAIR N/A Family History No family history on file. Social History Social History Socioeconomic History ??? Marital status: Spouse name: Not on file ??? Number of children: Not on file ??? Years of education: Not on file ??? Highest education level: Not on file Occupational History ??? Not on file Tobacco Use ??? Smoking status: Never ??? Smokeless tobacco: Never Substance and Sexual Activity ??? Alcohol use: Never ??? Drug use: Never ??? Sexual activity: Not on file Other Topics Concern ??? Not on file Social Drivers of Health Financial Resource Strain: High Risk (08/11/2024) Received from [facility] SDOH Screening ??? In the past year, have you been unable to get any of the following when you really needed them?choose all that apply.: Clothing Food Insecurity: No Food Insecurity (12/09/2024) Hunger Vital Sign ??? Worried About Running Out of Food in the Last Year: Never true ??? Ran Out of Food in the Last Year: Never true Transportation Needs: No Transportation Needs (12/09/2024) PRAPARE - Transportation ??? Lack of Transportation (Medical): No ??? Lack of Transportation (Non-Medical): No Physical Activity: Not on file Stress: Not on file Social Connections: Not on file Intimate Partner Violence: Not At Risk (12/09/2024) Humiliation, Afraid, Rape, and Kick questionnaire ??? Fear of Current or Ex-Partner: No ??? Emotionally Abused: No ??? Physically Abused: No ??? Sexually Abused: No Medications Allergies: Allergies[1] Home Meds: Home Medications Medication Sig Taking? Last Dose [...] tablets (200 mg total) by mouth daily. Inpatient Meds: Scheduled: Continuous: PRN: Vital Signs Wt Readings from Last 3 Encounters: 12/09/24 (!) 324 lb 1.2 oz (147 kg) Ht Readings from Last 3 Encounters: 12/09/24 5' 8 (1.727 m) Temp Readings from Last 3 Encounters: 12/14/24 97.7 ??F (36.5 ??C) (Oral) BP Readings from Last 3 Encounters: 12/14/24 140/76 Pulse Readings from Last 3 Encounters: 12/14/24 76 SpO2 Readings from Last 3 Encounters: 12/14/24 100% Physical Exam Airway: Mallampati: II Mouth Opening: >2 FB TM distance: > = 3 FB Neck ROM: full Dental: Pulmonary: Breathing: unlabored Cardiovascular: Rhythm: regular Rate: normal Neuro/Musculoskeletal/Psych: Mental status: alert. Abdominal: Obese. Current OB Status: Other Findings: Laboratory Data Lab Results Component Value Date WBC 9.1 12/14/2024 HGB 9.7 (L) 12/14/2024 HCT 29.5 (L) 12/14/2024 MCV 74.6 (L) 12/14/2024 PLT 236 12/14/2024 No results found for: ABORH Lab Results Component Value Date GLUCOSE 88 12/14/2024 BUN 10 12/14/2024 CO2 28 12/14/2024 CREATININE 0.61 12/14/2024 K 3.6 12/14/2024 NA 141 12/14/2024 CL 105 12/14/2024 CALCIUM 8.4 (L) 12/14/2024 ALBUMIN 3.1 (L) 12/14/2024 PROT 6.5 12/09/2024 ALKPHOS 66 12/09/2024 ALT 12 12/09/2024 AST 9 (L) 12/09/2024 BILITOT 0.5 12/09/2024 No results found for: PTT , INR No results found for: PREGTESTUR , PREGSERUM , HCG , HCGQUANT Anesthesia Plan ASA 3 Female and current non-smoker Anesthesia Type: MAC. PONV Risk Factors: female, current non-smoker Induction: Intravenous induction. Anesthetic plan and risks discussed with patient. Plan, alternatives, and risks of anesthesia, including , have been explained to and discussed with the patient/legal guardian. By my assessment, the patient/legal guardian understands and agrees. Scenario presented in detail. Questions answered. Plan discussed with PREVENTION RN. [1] No Known Drug Allergies or Adverse Reactions documented in this encounter Plan of Treatment Not on file documented as of this encounter Visit Diagnoses * Transfer of Care - Radha Mackey CRNA - 01/23/2025 3:00 PM EDT Anesthesia Transfer of Care Note Patient: María Liriano Procedure(s) Performed: Procedure(s): EGD STENT REMOVAL Patient location: Endoscopy PACU Anesthesia type: MAC Airway Device on Arrival to PACU/ICU: Room Air IV Access: Peripheral Monitors Recommended to be Used During PACU/ICU: Standard Monitors Outstanding Issues to Address: None Level of Consciousness: awake and alert Post vital signs: Vitals: 01/23/25 1459 BP: (103/81 Pulse: 78 Resp: 16 Temp: 98.1 ??F (36.7 ??C) SpO2: 95% Complications: No notable events documented. Date 01/22/25699 - 01/23/25 0659(Not Admitted) 01/23/25 07 - 01/24/25 0659 Shift [id number] 9520-2839 4045-3451 24 Hour Total 5976-7799 8139-2147 8647-1906 24 Hour Total INTAKE I.V. 100(0.7) 100(0.7) Volume (mL) (sodium chloride 0.9 % IV infusion) 100 100 Shift Total(mL/kg) 100(0.7) 100(0.7) OUTPUT Shift Total(mL/kg) Weight (kg) 140.6 140.6 140.6 140.6 documented in this encounter Administered Medications Inactive Administered Medications - up to 3 most recent administrations Medication Order MAR Action Action Date Dose Rate Site lidocaine (PF) 2% (20 mg/mL) Soln Intravenous, PRN - One Step Medication Only, Starting on Wed01/23/25 at 1438, Anesthesia Intra-op Given 01/23/2025 2:38 PM EDT 100 mg propofol (DIPRIVAN) infusion 10 mg/mL Intravenous, Continuous - One Step Medications Only, Starting on Wed01/23/25 at 1438, Anesthesia Intra-op New Bag 01/23/2025 2:38 PM EDT 150 mcg/kg/min 126.54 mL/hr propofol 10 mg/ml (DIPRIVAN) injection Intravenous, PRN - One Step Medication Only, Starting on Wed01/23/25 at 1438, Anesthesia Intra-op Given 01/23/2025 2:39 PM EDT 20 mg Given 01/23/2025 2:38 PM EDT 50 mg sodium chloride 0.9 % IV infusion 50 mL/hr, Intravenous, Continuous, Starting on Wed01/23/25 at 1400, Pre-procedure(GI)Indications:Bile leak Restarted 01/23/2025 2:48 PM EDT New Bag 01/23/2025 1:56 PM EDT 50 mL/hr 50 mL/hr documented in this encounter Care Teams Assembly Mechanic Relationship Specialty Start Date End Date Mónica Adler APRN [address] [place] [address] PCP - General Transcription Specialist 12/12/24 documented as of this encounter
--- OUTSIDE RECORDS SUMMARY | 2025-03-02 08:37 | XMS_ITS | Continuity of Care Document ---
Author Organization [facility] Phone Care Team Providers Care Heading Saw Operator Name Role Phone PO MOYER Admitting Unavailable COMFORT, PO Primary Care Unavailable COMFORT, PO Primary Attending Unavailable ALLERGIES AND ADVERSE REACTIONS ALLERGIES AND ADVERSE REACTIONS Code System Allergy Substance Adverse Reaction Date Reaction (Severity) Comment Status Reported By Updated By No Known Allergies [id number] on July 27, 2024 7:10:00 AM [facility] FAMILY HISTORY RELATION: Father Status: Cause of : Unknown Age at : Unknown SNOMED-CT Diagnosis Age At Onset [id number] Essential hypertension [id number] Heart disease RELATION: Mother Status: Cause of : Unknown Age at : Unknown SNOMED-CT Diagnosis Age At Onset [id number] Essential hypertension [id number] Diabetes mellitus RESULTS Patient: CELINE KULKARNI Date of : [birth year] LABORATORY RESULTS Information is not available LABORATORY NARRATIVE RESULTS Information is not available RADIOLOGY RESULTS ORDER 100: RT UPPER QUADRANT US (LOINC: 11143-2) ORDER DATE: February 28, 2025 5:31:00 PM [facility] PERFORMING LAB: [address] [id number] Final Result Date: February 28, 2025 7:45:[address] [address] Name: SHAD BERGER Exam Date: 02/28/2025 : 1975 Age 49 years Gender: F Physician: PO MOYER Facility: [facility] Facility HSV: Outpatient Exam: RT UPPER QUADRANT US US ABDOMEN LIMITED, 02/28/2025 1:23 PM [employer] INDICATION: RUQ pain Ultrasound evaluation of the right upper quadrant was completed. Liver 19.1 cm. Right kidney 11.3 cm. Common bile duct 3 mm. * According to technologist note, technically difficult secondary to body habitus. * Pancreas not identified, obscured secondary to bowel gas. * Liver is enlarged, poor parenchymal evaluation, no discrete mass is identified, there may be fatty replacement. * No hydronephrosis involving the right kidney. * Gallbladder has been removed, no bile duct dilatation. * IMPRESSION: * Enlarging probable fatty replaced liver. * Status post cholecystectomy, no bile duct dilatation . Electronically signed by: Carroll Vinson MD 02/28/2025 02:45 PM [facility] Dictated By: Carroll Vinson Transcribed By: Transcribed On: 02/28/2025 2:45 PM Electronically signed by: Carroll Vinson 02/28/2025 Thank you for referring SHAD BERGER to [facility]. Legally authenticated by EDUARD MINA 2025-02-28 14:45:13 ORDER 300: COMPLETE PELVIS U S (LOINC: [id number]) ORDER DATE: February 28, 2025 6:11:00 PM [facility] PERFORMING LAB: [address] [id number] Final Result Date: February 28, 2025 7:46:45 PM [facility] [address] [address] Name: SHAD BERGER Exam Date: 02/28/2025 : 1975 Age 49 years Gender: F Physician: PO MOYER Facility: [facility] Facility HSV: Outpatient Exam: COMPLETE PELVIS US US PELVIS, 02/28/2025 1:24 PM [employer] INDICATION: OVARIAN CYST LEFT Transabdominal images of the pelvis were obtained. 8.1 x 4.8 x 4.8 cm. Endometrium 6 mm. Right adnexum not visualized. Left adnexum not visualized. * Uterus and endometrium are unremarkable. * Neither adnexum identified. * According to technologist note, technically difficult secondary to body habitus. * IMPRESSION: * Neither adnexum are identified . Electronically signed by: Carroll Vinson MD 02/28/2025 02:46 PM EST RP Dictated By: Carroll Vinson Transcribed By: Transcribed On: 02/28/2025 2:46 PM Electronically signed by: Carroll Vinson 02/28/2025 Thank you for referring SHAD BERGER to [facility]. Legally authenticated by EDUARD MINA 2025-02-28 14:46:45 PATHOLOGY NARRATIVE RESULTS Information is not available MICROBIOLOGY RESULTS No Micro Labs/Results Exist for Patient BLOOD ADMIN RESULTS Information is not available MEDICATIONS HOME MEDICATIONS Status RXNORM NDC Medication Dose Route Frequency Dates Comments Reported By Updated By Drug Treatment Unknown DISCHARGE MEDICATIONS Status RXNORM NDC Medication Dose Route Frequency Dates Dis pense Data Comments Physician Updated By No Discharge Medication Info rmation Available INPATIENT MEDICATIONS Status RXNORM NDC Medication Dose Route Frequency Rat e Quantity Dates Indication Dispense Data Comments Physician Updated By No Inpatient Medication Info rmation Available SOCIAL HISTORY SOCIAL HISTORY - Smoking Status SNOMED-CT Social History Element Description Effective Dates Offered Cessation Comment Updated By [id number] Historical Tobacco smoking status Current Every Day Smoker [id number] on September 22, 2023 7:35:55 PM [facility] SOCIAL HISTORY - Gender Sex: Female SOCIAL HISTORY - Status : status i nformation is not available Intention in Next Year: intention information is not available SOCIAL HISTORY - Assessments Code System Description Status Date Value of Assessment Updated By Comment Assessment Information is no t available SOCIAL HISTORY - [place] Affiliation [place] information is not av ailable SOCIAL HISTORY - Legal Sex Legal Sex information is not available SOCIAL HISTORY - Sexual Behavior Sexual Orientation Gender Identity SNOMED-CT Description SNO MED -CT Description Activity Level No of Partners Partner Type UpdatedBy Information is not available SOCIAL HISTORY - Occupation Occupation information is no t available HEALTH CONCERNS Problems Concern Status Health Concern problem infor mation not available. Smoking Status Status Years Used Consumed packs p er day Health Concern smoking histo ry information not available. Family History Concern Status Health Concern family histor y information not available. ENCOUNTERS ENCOUNTER INFORMATION Reason for Visit Not Specified Admission February 28, 2025 5:25:00 PM UTC [facility] [address] [id number] Discharge February 28, 2025 5:25:00 PM UTC DISCHARGED TO HOME OR SELF CARE ENCOUNTER DIAGNOSES Notes information is not gumaro ilable. Code System Diagnosis Onset Date Diagnosis information is not available. ABSTRACT DIAGNOSES Code System Diagnosis Updated By Abatement Date N. ICD10 UNSPECIFIED OVAR HAY CYST, LEFT SIDE [id number] on March 02, 2025 1:37:14 PM UTC R10.11 ICD10 RIGHT UPPER QUADRANT PAIN GV [id number] on March 02, 2025 1:37:14 PM UTC N83.202 ICD10 UNSPECIFIED OVAR HAY CYST, LEFT SIDE [id number] on March 02, 2025 1:37:14 PM UTC Z90.49 ICD10 ACQUIRED ABSENCE OF OTHER SPECIFIED PARTS OF DIGESTIVE TRACT [id number] on March 02, 2025 1:37:14 PM UTC CARE TEAM Care Heading Saw Operator Role PO COMFORT Admitting PO COMFORT Primary Care PO COMFORT Primary Attending CARE TEAM CARE dope house operator helper Role on Team Location Telecom Status Start Date End Swapnil e Updated By COMFORT FONTENOT PCP normal February 28, 2025 5:00:00 AM UTC February 28, 2025 5:25:00 PM UTC [id number] on February 28, 2025 5:27:24 PM UTC STONE Seo PCP normal February 24, 2025 4:24:52 PM UTC February 28, 2025 5:00:00 AM UTC [id number] on February 28, 2025 5:27:24 PM UTC COMFORT FONTENOT Attending normal February 24, 2025 4:24:52 PM UTC February 28, 2025 5:25:00 PM UTC [id number] on February 28, 2025 5:27:24 PM UTC COMFORT PO Admitting normal February 24, 2025 4:24:52 PM UTC February 28, 2025 5:25:00 PM UTC [id number] on February 28, 2025 5:27:24 PM UTC
[2025-03-03] VITALS (8 sets, daily range): BP systolic 120–147; BP diastolic 62–83; PULSE 68–79; RESP 18–19; TEMP 36.4–36.9; O2SAT 95–99; BMI 48.6
--- NOTE | 2025-03-03 17:46 | CT_ITS ---
PROCEDURE INFORMATION: Exam: CT Abdomen And Pelvis With Contrast Exam date and time: 03/03/2025 7:02 PM Age: 49 years old Clinical indication: Abdominal pain; Additional info: Abd pain TECHNIQUE: Imaging protocol: Computed tomography of the abdomen and pelvis with contrast. Radiation optimization: All CT scans at this facility use at least one of these dose optimization techniques: automated exposure control; mA and/or kV adjustment per patient size (includes targeted exams where dose is matched to clinical indication); or iterative reconstruction. Contrast material: ISOVUE; Contrast volume: 75 ml; Contrast route: IV; COMPARISON: CT ABDOMEN PELVIS WO CON 01/04/2025 2:27 PM FINDINGS: Liver: Unremarkable. Gallbladder and biliary ducts: Status post cholecystectomy. No biliary ductal dilatation. Previously demonstrated common bile duct stent in place on 01/04/2025 CT is no longer present. Pancreas: Unremarkable. Spleen: Unremarkable. Adrenal glands: Unremarkable. Kidneys and ureters: Normal symmetric renal nephrograms. Few punctate (2-3 mm) non-obstructing stones in the bilateral kidneys, unchanged. No hydronephrosis. Stable simple renal cysts. Stomach and bowel: Unremarkable. Appendix: No evidence of appendicitis. Intraperitoneal space: No free fluid. No pneumoperitoneum. Vasculature: Unremarkable. Lymph nodes: Unremarkable. Urinary bladder: Unremarkable. Reproductive: Unremarkable. Bones/joints: No evidence of acute osseous abnormality. Soft tissues: Minor soft tissue contusion in the superficial subcutaneous fat overlying the right hip. No soft tissue hematoma. IMPRESSION: 1. No evidence of acute intra-abdominal pathology. 2. Previously demonstrated common bile duct stent in place on 01/04/2025 CT is no longer present. 3. Few punctate (2-3 mm) non-obstructing stones in the bilateral kidneys, unchanged. 4. Minor soft tissue contusion in the superficial subcutaneous fat overlying the right hip.
[2025-03-03 17:48] LABS: Microscopic, Urine URINE MICROSCOPIC (MICROSCOPIC)
--- NOTE | 2025-03-03 17:48 | ED_ITS ---
<Statement entered by Cordell Owens DO - 03/03/25 21:56> I was consulted by the LORRI, and we discussed the complexity of problems being addressed. I approved the treatment and management plan for this patient's care in the emergency department, thus performing a substantive portion of the medical decision making. Cordell Owens DO This is Dr. Owens. I did independently evaluate this patient as well secondary to her high risk history. Per prior chart review it seems that this patient has a history of laparoscopic cholecystectomy that occurred on 12/03/2024. Her postoperative course was complicated by recurrent abscess within the gallbladder fossa that necessitated repeat surgical evaluation. She presents today complaining of pain within the right upper quadrant and the left upper quadrant that is been going on over the last couple of days. She also reports urinary frequency. She states that her pain is not postprandial. She has had no melena, hematochezia, or hematemesis. No nausea or vomiting. She is also not having chest pain or shortness of breath. I approve the workup seen in the official notes by the LORRI. I did add on an EKG as well as a lipase. Essentially, the CT scan is unrevealing for any acute pathology that would be explaining the patient's symptoms. Her EKG was personally interpreted by me and demonstrated normal sinus rhythm at a rate of 62 bpm, normal axis, no NM prolongation, narrow QRS, no QTc prolongation. No ST elevation or depression. No overt signs of ischemia or arrhythmia. Labs were personally interpreted by me and demonstrate a mild leukocytosis of 11.8, no anemia, normal coags. She has no electrolyte derangement or acute kidney injury. Specifically, her LFTs are normal which is reassuring that she does not have any active biliary pathology. On urinalysis she has no leukocyte esterase, no nitrates, and 3-5 white blood cells. I do not feel that this is consistent with urinary tract infection. Given that she is having such bad urinary frequency we will add on a urine gonorrhea and chlamydia. Lipase is normal which suggest against pancreatitis. The patient CT scan showed no acute findings. I informed the patient and her of this result. They were very unhappy with the result. They tell me that they had a right upper quadrant ultrasound as well as a transabdominal ultrasound within the last week that showed sludge within the liver and a large ovarian cyst. Therefore given that she has been having this abdominal pain they are adamant that they need a formal right upper quadrant ultrasound this evening. I did try to educate the patient and her that once the gallbladder is removed biliary sludge does not occur, and that her bile ducts are of normal caliber on CT scan and her LFTs are normal which suggest against any kind of unusual biliary obstruction. They were finally able to obtain the results of the right upper quadrant ultrasound and the transabdominal ultrasound that was obtained at an outside hospital. I was able to review the radiology report with them. The radiology report states that there is no acute findings on the transabdominal pelvic ultrasound and that the right adnexa and left adnexa were unable to be identified. There is no evidence of ovarian cyst on this ultrasound. Therefore I do not think that the patient is currently experiencing any ovarian pathology given that we also do not see any abnormalities of the reproductive tract on our CT scan today. Additionally, regarding the scan of her right upper quadrant, I reviewed the results with them from this as well. This shows that there is evidence of fatty infiltration of the liver with normal caliber bile ducts which is also demonstrated on her CT scan today. Therefore I do not feel that she is experiencing any acute life- threatening right upper quadrant pathology at this time The patient was ultimately discharged home. Discharge Plan Disposition Patient Disposition: Home, Self-Care Prescriptions Prescriptions: No Action rosuvastatin 5 mg tablet 5 mg PO DAILY Qty: 90 3RF levothyroxine 75 mcg tablet 75 mcg PO DAILY Patient Comments: TAKE 1 TABLET BY MOUTH DAILY albuterol sulfate 90 mcg/actuation HFA aerosol inhaler 2 puff inhalation Q4HP PRN (Reason: Shortness Of Breath) Patient Comments: INHALE 2 PUFFS INTO THE LUNGS EVERY 4 HOURS NEEDED FOR WHEEZING fluticasone propionate 50 mcg/actuation spray,suspension 1 spray intranasal DAILYP PRN (Reason: Congestion) Patient Comments: SHAKE LIQUID AND USE 1 SPRAY IN EACH NOSTRIL DAILY levocetirizine 5 mg tablet 5 mg PO DAILY Qty: 30 3RF alprazolam 0.5 MG tablet 0.5 mg PO BIDP PRN (Reason: Anxiety) meloxicam 7.5 mg tablet 7.5 mg PO BIDP PRN (Reason: Mild Pain (Scale Score 1-4)) sertraline 100 MG tablet 200 mg PO DAILY dapagliflozin propanediol [Farxiga] 5 mg tablet 5 mg PO DAILY rosuvastatin 5 mg tablet 5 mg PO HS metoprolol succinate 100 mg tablet extended release 24 hr 100 mg PO DAILY Referrals Follow up/Referrals: Viral Chairez II, MD [Staff Physician, Gastroenterology] - See instructions Mónica Adler APRN [Primary Care Provider, Medical] - See instructions Activity Restrictions/Add. Instructions Additional Instructions/Restrictions: Today you were evaluated in the emergency department. The CT scan of your abdomen pelvis did not show anything acute, you have small renal calculi. Your lab workup was overall unremarkable. Please check your portal for the rest of your urine to result tomorrow. Clinical Impressions Clinical Impression: Abdominal pain, non-surgical, Bilateral kidney stones Instructions Patient Instructions: DI for Acute Abdominal Pain Print Language Print Language: French Discharge ED Provider: Cordell Owens Adult HPI General Chief complaint: PAIN Stated complaint: abdominal pain in the left side and vaginal pain Time Seen by Provider: 03/03/25 17:35 History of Present Illness HPI narrative: patient is a 49-year-old female PMHx obesity, history of abdominal pain, history of cholecystitis with cholecystectomy with possible postop abscess formation, history of kidney stents, who presents to the ED for 1 week of right upper quadrant abdominal pain and suprapubic pain. Patient states she was recently diagnosed with a ovarian cyst through transvaginal ultrasound which she believes could be causing her suprapubic pain. Related Data Home Medications ?Medication ?Instructions ?Recorded ?Confirmed sertraline 100 mg tablet 200 mg PO DAILY 03/26/18 alprazolam 0.5 mg tablet 0.5 mg PO BIDP PRN Anxiety 0 09/14/19 01/01/25 levothyroxine 75 mcg tablet 75 mcg PO DAILY 06/16/23 0 01/01/25 albuterol sulfate 90 mcg/actuation 2 puff inhalation Q 4HP PRN 11/20/24 01/01/25 aerosol inhaler Shortness Of Breath fluticasone propionate 50 1 spray intranasal DAILYP NM N 11/20/24 01/01/25 mcg/actuation nasal Congestion spray,suspension dapagliflozin propanediol 5 mg 5 mg PO DAILY 12/03/24 01/01/25 tablet (Farxiga) Held on 01/01/25. Instructions: Doctor's Order rosuvastatin 5 mg tablet 5 mg PO HS 12/03/24 01/01/25 metoprolol succinate 100 mg 100 mg PO DAILY 12/06/24 0 01/01/25 tablet,extended release 24 hr meloxicam 7.5 mg tablet 7.5 mg PO BIDP PRN Mild Pain 12/08/24 01/01/25 (Scale Score 1-4) Previous Rx's ?Medication ?Instructions ?Recorded levocetirizine 5 mg tablet 5 mg PO DAILY #30 tabs 11/10 05/06 rosuvastatin 5 mg tablet 5 mg PO DAILY #90 tabs 01/01 Allergies Allergy/AdvReac Type Severity Reaction Status Date / Time No Known Allergies Allergy Verified 01/01/25 14:42 [facility] Disclaimer: The information contained in this section may have been updated after the patient was seen, as this information can be updated by other users. Medical History Multiple thyroid nodules CHF (congestive heart failure) Asthma HLD (hyperlipidemia) HTN (hypertension) Anxiety Hyperparathyroidism Elevated brain natriuretic peptide (BNP) level Anemia Surgical History Status post fine needle aspiration History of hernia repair Family History Other Family history of acute congestive heart failure Family history of diabetes mellitus type II Family history of hyperlipidemia Family history of hypertension Social History Smoking Status: Never smoker alcohol intake: never substance use type: denies use current occupational status: unemployed and other Travel in the last 8 weeks?: None household members: other housing: house current occupational exposures/hazards: No Have you lived/traveled outside US in past 30 days?: No Contact w/someone who lives/traveled outside US past 30 days?: No Exposure to someone with infectious disease in past 14 days?: No Do you have a fever (greater than 100.4 F or 38 C)?: No Have you tested positive for COVID-19?: No Exposed to someone with COVID-19 in past 14 days?: No Do you have a sore throat?: No Do you have a cough?: No Do you have any weakness?: No Do you have any diarrhea?: No Are you experiencing any unusual bleeding?: No Do you have any muscle aches/pain?: No Do you have any abdominal pain?: No Are you experiencing loss of taste or smell?: No Other Medical History Have you received the Flu Vaccine for this season: No Have you received the Pneumonia Vaccine: No ROS Obtained: Yes Systems reviewed as appropriate & no additional complaints except as documented Physical Exam General General appearance: alert Head Head exam: atraumatic Eye Eye exam: Present PERRL Respiratory Respiratory exam: Present normal lung sounds bilaterally Cardiovascular Cardiovascular exam: Present regular rate Abdominal Exam Abdominal exam: Present soft and tenderness (mild RUQ); Absent distention Extremities Exam Extremities exam: Present full ROM Neurological Exam Neurological exam: Present alert and oriented X3 Skin Skin exam: Present warm and dry Medical Decision Making Medical Records Screening: Per USPSTF and CDC recommendations, given the prevalence of disease in our region, it is our hospital?s policy to screen for HIV and viral Hepatitis for all patients aged 18 and over and those with ongoing risk factors. Gary Inquiry Pt receiving controlled substance: No Vital Signs: 03/03/25 17:10 03/03/25 17:45 03/03/25 17:49 Temperature 97.6 F Temperature Source Oral Pulse Rate 78 74 Pulse Rate [Left Radial] 78 Respiratory Rate 19 Blood Pressure 147/83 H 137/75 Blood Pressure [Right Arm] 147/83 H Blood Pressure Mean [Right Arm] 104 02 Sat by Pulse Oximetry 98 98 95 Oxygen Delivery Method Room Air 03/03/25 18:01 03/03/25 18:30 03/03/25 19:14 Temperature Temperature Source Pulse Rate 79 74 74 Pulse Rate [Left Radial] Respiratory Rate 18 Blood Pressure 120/70 123/62 121/69 Blood Pressure [Right Arm] Blood Pressure Mean [Right Arm] 02 Sat by Pulse Oximetry 96 95 99 Oxygen Delivery Method Room Air Room Air Room Air 03/03/25 20:21 03/03/25 20:34 Temperature 98.5 F Temperature Source Tympanic Pulse Rate 69 68 Pulse Rate [Left Radial] Respiratory Rate 18 18 Blood Pressure 120/72 120/72 Blood Pressure [Right Arm] Blood Pressure Mean [Right Arm] 02 Sat by Pulse Oximetry 98 Oxygen Delivery Method Room Air Room Air Lab Data Lab Results 03/03/25 17:41: Urine Color Yellow, Urine Appearance Clear, Urine pH 5.5, Ur Specific [place] 1.020, Urine Protein Negative, Urine Glucose (UA) 3+, Urine Ketones Negative, Urine Blood Trace-i, Urine Nitrate Negative, Urine Bilirubin Negative, Urine Urobilinogen 0.2, Ur Leukocyte Esterase Negative, Urine RBC None, Urine WBC 3-5, Ur Squamous Epith Cells 3-5, Urine Bacteria Trace, Urine HCG, Qual Negative 03/03/25 17:46: WBC 11.8 H, RBC 5.02, Hgb 12.4, Hct 40.4, MCV 80.5 L, MCH 24.7 L , MCHC 30.7 L, RDW 15.1, Plt Count 265, MPV 10.0, Neut % (Auto) 80.4 H, Lymph % (Auto) 13.0, [place] % (Auto) 4.5, Eos % (Auto) 1.5, Baso % (Auto) 0.3, Neut # (Auto) 9.4 H, Lymph # (Auto) 1.5, [place] # (Auto) 0.5, Eos # (Auto) 0.2, Baso # (Auto) 0.0, PT 10.9, INR 0.98, APTT 26.9, Sodium 139, Potassium 4.1, Chloride 104, Carbon Dioxide 28, Anion Gap 11.1, BUN 23 H, Creatinine 0.90, Estimated Creat Clear 76, Estimated GFR 67, Est GFR ( Amer) 81, Glucose 109 H, Calcium 9.2, Total Bilirubin 0.4, AST 28, ALT 22, Alkaline Phosphatase 103, T otal Protein 8.0 D, Albumin 4.5, Globulin 3.5 H, Albumin/Globulin Ratio 1.3, Lipase 134, HCV Ab TORRES w/Rflx PCR Qn Negative, HIV Ag/Ab Combo Qual Negative 03/03/25 17:46 03/03/25 17:46 Orders (Tests/Meds): ED MEDICATIONS Discontinued Medications Generic Name Dose Route Start Last Admin Trade Name Freq PRN Reason Stop Dose Admin Sodium Chloride 1,000 mls @ 999 mls/hr 03/03/25 17:48 03/03/25 20:03 Sod Chlor 0.9% 1000ml Bag IV 03/03/25 18:48 Infused .Q1H1M ONE Infusion Iopamidol 75 ml 03/03/25 19:02 03/03/25 19:03 Iopamidol-370 (76%);100ml Bottle IV 03/03/25 19:03 75 ml ONCE ONE Administration Morphine Sulfate 4 mg 03/03/25 17:48 03/03/25 18:09 Morphine 4mg/Ml Syringe IV 03/03/25 17:49 4 mg ONCE ONE Administration Ondansetron HCl 4 mg 03/03/25 17:48 03/03/25 18:09 Ondansetron 4mg/2ml Vial IV 03/03/25 17:49 4 mg ONCE ONE Administration Sodium Chloride 10 ml 03/03/25 19:02 03/03/25 19:03 Sodium Chloride 0.9% 10ml Syr (Rad Only) IV 03/03/25 19:03 10 ml ONCE ONE Administration ORDERS Category Date Time Status CT abdomen pelvis w con Stat Cat Scan 03/03/25 17:46 Completed CBC w/Auto Diff [Complete Blood Count Auto Diff] Stat Lab 03/03/25 17:46 Completed CMP [Comprehensive Metabolic Panel] Stat Lab 03/03/25 17:46 Completed HIV Combo Routine Lab 03/03/25 17:46 Completed Hepatitis C Ab Qual. W/ RFX Routine Lab 03/03/25 17:46 Completed Lipase Stat Lab 03/03/25 17:46 Completed PT/PTT Stat Lab 03/03/25 17:46 Completed UA [Urinalysis and Microscopic] Stat Lab 03/03/25 17:41 Completed Urine Chlam/Gono/Trich ([facility]) Stat Lab 03/03/25 20:13 Received Urine , HCG Qual. Stat Lab 03/03/25 17:41 Completed Medical Decision Narrative: In summary, patient is a 49-year-old female PMHx obesity, history of abdominal pain, history of cholecystitis with cholecystectomy with possible postop abscess formation, history of kidney stents, who presents to the ED for 1 week of right upper quadrant abdominal pain and suprapubic pain. Patient states she was recently diagnosed with a ovarian cyst through transvaginal ultrasound which she believes could be causing her suprapubic pain. She denies fever, chills, body aches, headache, chest pain, shortness of breath, vomiting, dysuria. Patient states she has had intermittent nausea. Differential diagnosis includes intra- abdominal infection, peritonitis, perforation, sepsis, among others. Upon initial evaluation patient is alert, oriented and cooperative. She is stable. She is obese, her abdomen is soft and mildly tender in the right upper quadrant. No flank tenderness. Discussed with patient that we will proceed with labs, urinalysis and CT scan of the abdomen pelvis. She is agreeable at this time. We will symptomatically manage with IV fluids, morphine and Zofran. CBC remarkable for WBC 11.8, stable H&H. CMP unremarkable for any actionable abnormalities. Lipase 134. Urinalysis unremarkable for any infectious process. hCG negative. CT unremarkable for any acute intra-abdominal pathology, few punctate nonobstructing stones in the bilateral kidneys and a minor soft tissue contusion in the subcutaneous fat overlying the right hip. Upon further discussion with patient, she states that a few weeks ago she rolled out of the bed onto her right hip however that pain has improved. Please see attendings note for further details of discharge and conversation with patient and . Critical Care Critical Care Time Critical Care Time: No
[2025-03-03 17:50] LABS: Bilirubin,Urine Negative (Negative); Color,Urine YELLOW (Yellow); Glucose,Urine (UA) 3+ (Negative); Ketones,Urine Negative (Negative); Leukocyte Esterase,Urine Negative (Negative); PH,Urine 5.5 (5.0-8.5); Protein,Urine Negative (Negative); Specific Gravity, Urine 1.020 (1.005-1.030); Urobilinogen,Urine 0.2 EU/dl (0.2)
--- OUTSIDE RECORDS SUMMARY | 2025-03-03 17:50 | XMS_ITS | Encounter Summary ---
Author Organization [place] [address] Care Team Providers Care Cnc Mill And Lathe Operator Name Role Phone Mónica Adler APRN Primary Care Provider [phone] Encounter Details Date Type Department Care Team (Late st Contact Info) Description 11/13/2024 Results Follow-Up [facility] [place] [address] [place] [address] Mariusz Junior MD [address] [address] IRON+TIBC, CBC WITH DIFF, HEMOGLOBIN A1C, [...] documented as of this encounter Care Teams Cnc Mill And Lathe Operator Relationship Specialty Start Date End Date Mónica Adler APRN [address] [place] [address] PCP - General Nurse Practitioner-Family 12/08/16 documented as of this encounter
--- OUTSIDE RECORDS SUMMARY | 2025-03-03 17:50 | XMS_ITS | Encounter Summary ---
Author Organization [place] [address] Care Team Providers Care Extracting Machine Operator Name Role Phone Mónica Adler APRN Primary Care Provider [phone] Reason for Visit * Reason Onset Date Comments Medication Refill 02/20/2025 Encounter Details Date Type Department Care Team (Late st Contact Info) Description 02/19/2025 Refill [facility] [address] [place] [id number] Mónica Adler APRN [address] [facility] [place] [address] Medication Refill Social History Tobacco Use [...] hours as needed. for wheezing 18 g 02/21/2025 cyclobenzaprine (FLEXERIL) 10 mg Oral TabletIndications: Degenerative disc disease, cervical,Degenerat yordan disc disease, lumbar Take 1 Tablet by mouth every 8 hours as needed. for muscle spasms 30 Tablet 1 02/21/2025 documented in this encounter Miscellaneous Notes * Telephone Encounter - Chandrika Zimmerman CCMA - 02/21/2025 1:01 PM EST Patient needs an appointment prior to refill. * Telephone Encounter - Lila Siddiqui CPhT - 02/21/2025 12:50 PM EST Cyclobenzaprine - There is no CRS protocol for this medication. Alprazolam - There is no CRS protocol for this medication. Albuterol MDI - Future Visit: N/A Last Assessed Visit: 06/07/24 Follow-Up Date: 12/05/24 Appointment protocol failed. One geneva supply sent to pharmacy. Routed to Office. documented in this encounter Plan of Treatment [...] or lumbosacral intervertebral disc Generalized anxiety disorder History of wheezing Personal history of other diseases of respiratory system documented in this encounter Discontinued Medications Medication Sig Discontinue Reason Start Date End Da te albuterol (PROVENTIL HFA;VENTOLIN HFA) 90 mcg/actuation Inhl HFA Aerosol InhalerIndications:Hist ory of wheezing Inhale 2 Puffs into the lungs every 4 hours as needed. for wheezing Reorder 12/12/2024 02/19/2025 cyclobenzaprine (FLEXERIL) 10 mg Oral TabletIndications:Degen erative disc disease, cervical,Degenerative disc disease, lumbar Take 1 Tablet by mouth every 8 hours as needed. for muscle spasms Reorder 08/19/2023 02/19/2025 documented as of this encounter Additional Health Concerns Assessment Noted Time PHQ-9 Depression Total Score: 11 025 2:50 PM EDT PHQ-2 Depression Total Score: 4 11/11/19 25 2:50 PM EDT documented as of this encounter Care Teams Extracting Machine Operator Relationship Specialty Start Date End Date Mónica Adler APRN [address] [place], [place] [address] PCP - General Nurse Practitioner-Family 12/08/16 documented as of this encounter
--- OUTSIDE RECORDS SUMMARY | 2025-03-03 17:50 | XMS_ITS | Encounter Summary ---
Author Organization [place] [address] Care Team Providers Care Flavoring Machine Operator Name Role Phone Mónica Adler PORTRAIT ARTIST Primary Care Provider [phone] Reason for Visit * Reason Onset Date Comments Medication Refill 02/20/2025 Encounter Details Date Type Department Care Team (Late st Contact Info) Description 02/19/2025 Refill [facility] [address] [place] [phone] Mariusz Junior MD [address] [place] [address] [place] [address] Medication Refill Social History Tobacco Use Types [...] Kannan Gimenez CCMA documented in this encounter Miscellaneous Notes * Telephone Encounter - Lila Siddiqui CPhT - 02/21/2025 1:10 PM EST Sertraline - Refill requested too soon. Refill denied. Last sent on 12/25/24 for a 90 day supply with 2 refills. Pt notified via [employer] if active. documented in this encounter Plan of Treatment [...] Generalized anxiety disorder documented in this encounter Additional Health Concerns Assessment Noted Time PHQ-9 Depression Total Score: 11 025 2:50 PM EDT PHQ-2 Depression Total Score: 4 11/11/19 25 2:50 PM EDT documented as of this encounter Care Teams Flavoring Machine Operator Relationship Specialty Start Date End Date Mónica Adler APRN [address] [place], [place] [address] PCP - General Nurse Practitioner-Family 12/08/16 documented as of this encounter
--- OUTSIDE RECORDS SUMMARY | 2025-03-03 17:50 | XMS_ITS | Encounter Summary ---
Author Organization [facility] Address [facility] [place] [address] Care Team Providers Care Data Clerk Name Role Phone Mónica Adler APRN Primary Care Provider [phone] Source Comments This information has been disclosed [...] release of HIV test results or diagnoses. [id number] Health Encounter Details Date Type Department Care Team (Latest Contact Info) Description 01/23/2025 Travel Social History Tobacco Use Types Packs/Day Years Used Date Smoking Tobacco: Never Smokeless Tobacco: Never Alcohol Use Standard Drinks/Week Comments Never 0 (1 standard drink = 0.6 oz pur e alcohol) [facility] Utilities Answer Date Recorded In the past 12 months has [employer], gas, oil, or water [employer] threatened to shut off services in your [...] money to buy more. Never true 12/10/19 Within the past 12 months, t he [...] any time in the past 12 m onths, were you homeless or living in a assisted (including now)? No 12/09/2024 Comments No Sex and Gender Information Value Date Recorded Sex Assigned at Not on file Legal Sex Female 4:19 PM EST Gender Identity Not on file Sexual Orientation Not on file documented as of this encounter Plan of Treatment Not on file documented as of this encounter Visit Diagnoses Not on filedocumented in this encounter Care Teams Data Clerk Relationship Specialty Start Date End Date Mónica Adler APRN [address] [place], [place] [address] PCP - General Student Ambassador 12/12/24 documented as of this encounter
--- OUTSIDE RECORDS SUMMARY | 2025-03-03 17:50 | XMS_ITS | Clinical Summary ---
Author Organization [facility] Address [facility] [place] [address] Care Team Providers Care Staffing Rn Name Role Phone Mónica Adler APRN Primary Care Provider [phone] Source Comments This information has been disclosed to you from confidential records protectedfrom disclosure by state law. You shall make no further disclosure of thisinformation without the specific, written, and informed release of theindividual to whom it pertains, or as otherwise permitted by law. A generalauthorization for the release of medical or other information is not sufficientfor the purposes of therelease of HIV test results or diagnoses. [id number] Allergies No known active allergies Medications metoprolol succinate (TOPROL-XL) 100 MG 24 hr tablet Take 1 tablet (100 mg total) by mouth daily. Active dapagliflozin propanediol (FARXIGA) 5 mg Tab tablet Take 1 tablet (5 mg total) by mouth daily. Active sertraline (ZOLOFT) 100 MG tablet Take 2 tablets (200 mg total) by mouth daily. Active rosuvastatin (CRESTOR) 5 MG tablet Take 1 tablet (5 mg total) by mouth at bedtime. Active levothyroxine (SYNTHROID) 75 MCG tablet Take 1 tablet (75 mcg total) by mouth every morning before breakfast. Active ALPRAZolam (NIRAVAM) 0.5 MG dissolvable tablet Take 1 tablet (0.5 mg total) by mouth 2 times a day as needed for Anxiety. Active albuterol 90 mcg/actuation Inhl inhaler Inhale 4 puffs into the lungs every 6 hours as needed for Wheezing or Shortness of Breath. 18 g 12/14/2024 3:45 PM EDT Active polyethylene glycol (MIRALAX) 17 gram/dose powder Mix 1 capful (17 g) in 8 ounces of liquid and take by mouth daily as directed as needed to relieve constipation. 238 g Active senna (SENOKOT) 8.6 mg tablet Take 2 tablets by mouth daily as needed for Constipation. 30 tablet 5 Active Active Problems Problem Noted Date Diagnosed Date Hematuria 12/13/2024 Assessment & Plan (12/13/2024 12:29 PM EDT): Patient reports 2-3 days of painless bleeding when she urinates with wiping. No hematochezia. No dysuria or suprapubic tenderness. Prior UA with moderate LE, few bacteria, but no nitrites. Last menses was 2 weeks ago and she reports spotting is atypical for her. Further workup with urine analysis and STI testing. Plan: - Repeat UA - Urine culture - STI testing - Syphilis - HIV 1/2 - chlamydia/gonorrhea swab - vaginitis panel Hypoxia, sleep related 12/12/2024 Assessment & Plan (12/13/2024 12:29 PM EDT): Patient requiring 1L NC overnight due to desaturations to high 80s and persistent wheezing. Patient reports experiencing wheezing at home, often in the context of recovering from a URI and a history of ISAAC. Patient reports history of URI 1-2 weeks prior to admission. Plan to continue supplemental oxygen and duonebs as needed. No concerns for underlying infectious process at this time. Plan: - Duo-Neb Q4H PRN with RT - Encourage incentive spirometry Assessment & Plan (12/12/2024 3:37 PM EDT): Patient placed on 1L NC overnight due to desaturations to high 80s, associated with wheezing. Patient reports experiencing wheezing at home, often in the context of recovering from a URI. Patient reports history of URI 1-2 weeks prior to admission. Plan to continue supplemental oxygen as needed and start DuoNebs today. Plan: - Duo-Neb Q4H PRN with RT - Encourage incentive spirometry Wheezing 12/12/2024 Assessment & Plan (12/13/2024 12:29 PM EDT): Patient requiring 1L NC overnight due to desaturations to high 80s and persistent wheezing. Patient reports experiencing wheezing at home, often in the context of recovering from a URI and a history of ISAAC. Patient reports history of URI 1-2 weeks prior to admission. Plan to continue supplemental oxygen and duonebs as needed. No concerns for underlying infectious process at this time. Plan: - Duo-Neb Q4H PRN with RT - Encourage incentive spirometry Assessment & Plan (12/12/2024 3:37 PM EDT): Patient placed on 1L NC overnight due to desaturations to high 80s, associated with wheezing. Patient reports experiencing wheezing at home, often in the context of recovering from a URI. Patient reports history of URI 1-2 weeks prior to admission. Plan to continue supplemental oxygen as needed and start DuoNebs today. Plan: - Duo-Neb Q4H PRN with RT - Encourage incentive spirometry Headache 12/10/2024 Assessment & Plan (12/13/2024 12:29 PM EDT): On admission, patient reported headache starting 2-3 days following lap divya. Denies headache this AM and for the past several days. Plan: Tylenol as listed above Assessment & Plan (12/12/2024 12:00 PM EDT): On admission, patient reported headache starting 2-3 days following lap divya. Denies headache this AM and for the past several days. Plan: Tylenol as listed above Assessment & Plan (12/11/2024 12:33 PM EDT): On admission, patient reported headache starting 2-3 days following lap divya. Denies headache this AM and for the past several days. Plan: Tylenol as listed above Assessment & Plan (12/10/2024 12:49 PM EDT): On admission, patient reported headache starting 2-3 days following lap divya. Denies headache this AM. Plan: PRN Tylenol as listed above Hypothyroidism 12/10/2024 Assessment & Plan (12/13/2024 12:29 PM EDT): Continue home levothyroxine 75 mcg Assessment & Plan (12/12/2024 12:00 PM EDT): Continue home levothyroxine 75 mcg Assessment & Plan (12/11/2024 7:01 AM EDT): Continue home levothyroxine 75 mcg Assessment & Plan (12/10/2024 12:49 PM EDT): Continue home levothyroxine 75 mcg Anxiety and depression 12/10/2024 Assessment & Plan (12/13/2024 12:29 PM EDT): Continue home sertraline 200 mg daily, PRN Xanax 0.5 mg Assessment & Plan (12/12/2024 12:00 PM EDT): Continue home sertraline 200 mg daily, PRN Xanax 0.5 mg Assessment & Plan (12/11/2024 7:01 AM EDT): Continue home sertraline 200 mg daily, PRN Xanax 0.5 mg Assessment & Plan (12/10/2024 12:49 PM EDT): Continue home sertraline 200 mg daily, PRN Xanax 0.5 mg Right upper quadrant abdominal pain 12/09/2024 Assessment & Plan (12/13/2024 12:29 PM EDT): Following uncomplicated lap divya 12/03, patient re-presented to OSH twice for worsening [place] [address], and subjective fever. Imaging initially consistent with expected post-operative inflammatory changes, but interval increased fluid collection raised concern for possible bile leak vs. small developing abscess. Started on Zosyn at OSH and transferred for ERCP given concern for bile leak. ERCP completed 12/10 without evidence of bile leak. Biliary stent placed. Pt has remained afebrile, HDS during this admission and at OSH. Increase in nausea raises concern for possible post-ERCP pancreatitis, but lack of acutely progressive pain following the procedure is reassuring. Plan to hold off on obtaining pancreatitis labs and continue to monitor clinically. Patient remains AF and HDS, with improving pain, despite mild bump in WBC. In house CT AP from OSH read to confirm no underlying abscess. Plan: - Regular diet - In-house CT reads pending, continue to follow - GI continues to follow, appreciate further recs - Pain: Scheduled Tylenol 650 mg Q6H, PRN Oxycodone 5 mg or 10 mg Assessment & Plan (12/12/2024 12:00 PM EDT): Following uncomplicated lap divya 12/03, patient re-presented to OSH twice for worsening RUQ abdominal pain and subjective fever. Imaging initially consistent with expected post-operative inflammatory changes, but interval increased fluid collection raised concern for possible bile leak vs. small developing abscess. Started on Zosyn at OSH and transferred for ERCP given concern for bile leak. ERCP completed 12/10 without evidence of bile leak. Biliary stent placed. Pt has remained afebrile, HDS during this admission and at OSH. Increase in nausea raises concern for possible post-ERCP pancreatitis, but lack of acutely progressive pain following the procedure is reassuring. Plan to hold off on obtaining pancreatitis labs and continue to monitor clinically. Plan: - Regular diet - In-house CT reads pending, continue to follow - GI continues to follow, appreciate further recs - Pain: Scheduled Tylenol 650 mg Q6H, PRN Oxycodone 5 mg or 10 mg Assessment & Plan (12/11/2024 12:33 PM EDT): Following uncomplicated lap divya 12/03, patient re-presented to OSH twice for worsening RUQ abdominal pain and subjective fever. Imaging initially consistent with expected post-operative inflammatory changes, but interval increased fluid collection raised concern for possible bile leak vs. small developing abscess. Started on Zosyn at OSH and transferred for ERCP given concern for bile leak. ERCP completed 12/10 without evidence of bile leak. Biliary stent placed. Pt has remained afebrile, HDS during this admission and at OSH. Mild interval increased WBC on AM CBC likely explained by instrumentation yesterday. Plan to discontinue Zosyn today given low concern for infectious process, will continue to monitor clinically for s/s of infection. Plan: - Regular diet - Discontinue Zosyn 4.5 g IV Q8H - In-house CT reads pending, continue to follow - GI continues to follow, appreciate further recs - Pain: Scheduled Tylenol 650 mg Q6H, PRN Oxycodone 5 mg or 10 mg Assessment & Plan (12/10/2024 12:49 PM EDT): Following uncomplicated lap divya 12/03, patient re-presented to OSH twice for worsening RUQ abdominal pain and subjective fever. Imaging initially consistent with expected post-operative inflammatory changes, but interval increased fluid collection raised concern for possible bile leak vs. small developing abscess. Started on Zosyn at OSH and transferred for ERCP given concern for bile leak. ERCP completed 12/10 without evidence bile leak. Biliary stent placed. WBC trending down and pt has remained afebrile, HDS during this admission and at OSH. Plan: - Full liquids diet; advance as tolerated - Continue Zosyn 4.5 g IV Q8H - Continue Zosyn pending in-house CT reads - Resume Lovenox prophylaxis tomorrow AM - GI continues to follow, appreciate further recs - Pain: PRN Tylenol, PRN Oxycodone 5 mg or 10 mg Resolved Problems Problem Noted Date Diagnosed Date Resolved Date Constipation 12/10/2024 12/12/2024 Assessment & Plan (12/12/2024 4:20 PM EDT): On admission, pt reported 3 days since last BM. Ileus possible possible in the setting of multiple surgical procedures, prolonged immobilization and intermittent NPO status. Also possible that pain control with opioids is causing or worsening constipation. Bowel regimen increased overnight given increased nausea with adequate response. Plan to de-escalate bowel regimen given loose stools overnight with lactulose treatment. Plan: - Scheduled senna 8.6 mg QD - Scheduled Miralax 17 g QD Assessment & Plan (12/11/2024 12:33 PM EDT): On admission, pt reported 3 days since last BM. Continues to deny BM during admission, now 4-5 days without BM. Ileus is possible in the setting of multiple surgical procedures, prolonged immobilization and intermittent NPO status. Also possible that pain control with opioids is causing or worsening constipation. Plan to increase bowel regimen today and continue to monitor. Plan: - Scheduled senna 8.6 mg BID - Scheduled Miralax 17 g BID Assessment & Plan (12/10/2024 12:49 PM EDT): On admission, pt reported 3 days since last BM. Continues to endorse at least 3 days without BM. Plan: - Scheduled senna 8.6 mg nightly - Scheduled Miralax 17 g daily Encounters Date Type Department Care Team Description 01/23/2025 2:31 PM EDT Anesthesia Event [facility] ENDOSCOPY [address] [place] [address] Colton German MD 01/23/2025 1:31 PM EDT - 01/23/2025 2:31 PM EDT Surgery [facility] ENDOSCOPY [address] [place] [address] Ed Richey MD EGD STENT REMOVAL 01/23/2025 12:30 PM EDT - 01/23/2025 3:59 PM EDT Hospital Encounter [facility] ENDOSCOPY [address] [place] [address] Ed Richey MD Bile leak Discharge Disposition: Home or Self Care WITHOUT Home Care Services 01/23/2025 Travel 12/29/2024 Orders Only [facility] G[facility]enterology at [facility] [address] [place] [address] Ed Richey MD Bile leak (Primary Dx) 12/19/2024 Telephone [facility] Gastroenterology at [facility] [address] [place] [address] Sona Jackson RN 12/10/2024 7:50 AM EDT - 12/10/2024 8:59 AM EDT Surgery [facility] ENDOSCOPY [address] [place] [address] Ed Richey MD ERCP 12/10/2024 7:46 AM EDT Anesthesia Event [facility] ENDOSCOPY [address] [place] [address] Flynn Valentin MD 12/09/2024 5:43 PM EDT - 12/14/2024 4:33 PM EDT Hospital Encounter [facility] [address] [place] [address] Taylor Real MD Stickles, Allison Michele, MD Schauer, Daniel, MD Bile leak (Primary Dx) Discharge Disposition: Home or Self Care WITHOUT Home Care Services 12/09/2024 Travel 12/09/2024 Telephone [facility] Hepatobiliary at [facility] [address] [place] [address] Ed Richey MD from Last 3 Months Family History Relation Status Comments Other family history o f acute congesitve heart failure, DM2, HLD, HTN Social History Tobacco Use Types Packs/Day Years Used Date Smoking Tobacco: Never Smokeless Tobacco: Never Tobacco Cessation:Counseling Given: No Alcohol Use Standard Drinks/Week Comments Never 0 (1 standard drink = 0.6 oz pur e alcohol) [facility] Utilities Answer Date Recorded In the past 12 months has [employer], gas, oil, or water [employer] threatened to shut off services in your [...] any time in the past 12 m [facility], were you homeless or living in a alf (including now)? No 12/09/2024 Comments No Sex and Gender Information Value Date Recorded Sex Assigned at Not on file Legal Sex Female 4:19 PM EST Gender Identity Not on file Sexual Orientation Not on file Last Filed Vital Signs Vital Sign Reading [...] Mass Index 47.14 01/23/2025 1:50 PM EDT Plan of Treatment Health Maintenance Due Date Last Done Comments ASCVD Assessment 1975 Abnormal Colonoscopy Follow Up 1975 Depression Monitoring (PHQ-9) 1975 Diabetes Screening 1975 Hepatitis C Screening (MyChart) 1975 Thyroid Function/TSH (MyChart) 1993 Immunization: DTaP/Tdap/Td ( 1 - Tdap) 1994 Immunization: Pneumococcal ( 1 of 2 - PCV) 1994 Cervical Cancer Screening/Pa p Smear (MyChart) 2005 Mammogram (MyChart) 2015 Colonoscopy 2020 Stool Testing (gFOBT) 2020 Immunization: Hepatitis B (2 of 2 - CpG 2-dose series) 2023 04/06/2023 Immunization: COVID-19 ( - season) 2024 Immunization: Influenza (MyC jones) (#1) 2024 04/02/2022, 03/21/2020 Cologuard (FIT-DNA) 09/16/2025 09/16/2022 Colorectal Cancer Screening (MyChart) 09/16/2025 Renal Function/GFR 12/14/2025 12/14/2024, 0 12/13/2024, 12/12/2024, Additional history exists HIV Screening Completed 12/13/2024 Medical Devices Explanted Type Area Tar Pot Worker Device Identifier Shelf Expiration Date Model / Serial / Lot Stent Biliary Zimmon Polyethylene 2 Pigtail Curve Taper L9 Cm Od7 Fr Pushing Catheter Sterile Disposable Purple .035 In Guidewire - [id number] Implanted:Qty: 1 on 12/10/2024 by Ed Richey MD at [facility] Main Explanted:Qty: 1 on 01/23/2025 by Mahin Christopher MD at [facility] Main Stent [employer] 08/24/2027 [id number] / / [id number] Procedures Procedure Name Priority Date/Time Associated Diagnosis Comments EGD EGD/Sm Bowel 01/23/2025 2:32 PM EDT Bile leak Special Needs ref: Giovanna Yoselin UPPER GI ENDOSCOPY Routine 01/23/2025 2: 10 PM EDT RHYTHM STRIPS - SCAN 12/15/2024 7:57 AM EDT RENAL FUNCTION PANEL W/EGFR Routine 12/14/2024 5:59 AM EDT MAGNESIUM Routine 12/14/2024 5:59 AM EDT CBC Routine 12/14/2024 5:59 AM EDT SYPHILIS MONITORING (RPR W TITER) Routine 12/13/2024 2:01 PM EDT HIV 1+2 ANTIBODY/ANTIGEN WITH REFLEX Routine 12/13/2024 2:01 PM EDT XR COMPARISON IMAGES Routine 12/13/2024 12:08 PM EDT CHLAMYDIA / GONORRHOEAE DNA URINE Routine 12/13/2024 12:01 PM EDT URINALYSIS W/RFL TO MICROSCOPIC Routine 12/13/2024 11:37 AM EDT URINE CULTURE Routine 12/13/2024 11:37 AM EDT CBC Routine 12/13/2024 4:36 AM EDT MAGNESIUM Routine 12/13/2024 4:36 AM EDT RENAL FUNCTION PANEL W/EGFR Routine 12/13/2024 4:36 AM EDT XR COMPARISON IMAGES Routine 12/12/2024 12:00 PM EDT XR COMPARISON IMAGES Routine 12/12/2024 12:00 PM EDT XR COMPARISON IMAGES Routine 12/12/2024 12:[address] OUTSIDE FILM REVIEW Routine 12/12/2024 11:59 AM EDT CBC Routine 12/12/2024 7:40 AM EDT MAGNESIUM Routine 12/12/2024 7:40 AM EDT RENAL FUNCTION PANEL W/EGFR Routine 12/12/2024 7:40 AM EDT URINALYSIS W/RFL TO MICROSCOPIC Routine 12/11/2024 5:15 PM EDT CBC STAT 12/11/2024 8:55 AM EDT RENAL FUNCTION PANEL W/EGFR STAT 12/11/2024 8:55 AM EDT IRON STUDIES Add-On 12/11/2024 8:55 AM EDT FERRITIN Add-On 12/11/2024 8:55 AM EDT FL ERCP S-I Routine 12/10/2024 8:42 AM EDT [place] ERCP DX COLLECTION SPECIMEN BRUSHING/WASHING ERCP 12/10/2024 7:47 AM EDT Bile leak ERCP Routine 12/10/2024 7:43 AM EDT ERCP Routine 12/10/2024 7:11 AM EDT Bile leak MAGNESIUM Routine 12/10/2024 4:06 AM EDT RENAL FUNCTION PANEL W/EGFR Routine 12/10/2024 4:06 AM EDT DIFFERENTIAL Routine 12/10/2024 4:06 AM EDT CBC Routine 12/10/2024 4:06 AM EDT ECG 12-LEAD (MUSE) Routine 12/09/2024 7: 01 PM EDT MAGNESIUM STAT 12/09/2024 6:53 PM EDT HEPATIC FUNCTION PANEL STAT 12/09/2024 6:53 PM EDT RENAL FUNCTION PANEL W/EGFR STAT 12/09/2024 6:53 PM EDT CBC STAT 12/09/2024 6:53 PM EDT from Last 3 Months Results * UPPER GI ENDOSCOPY (01/23/2025 2:10 PM EDT) 01/23/2025 2:10 PM EDT Narrative [facility] - 01/23/2025 3:06 PM EDT [id number] Procedure Date: 01/23/2025 2:10 PM Patient Name: María Berger Date of : 1975 Admit Type: Outpatient Age: 49 Gender: Female Note Status: Finalized Attending MD: Ed Richey MD, [id number] Procedure: Upper GI endoscopy Indications: Biliary stent removal. The patient is a 49 y/o female who was hospitalized at [facility] in November 2024 following transfer from [facility]. She s/p lap cholecystectomy on 12/03/2024 [...] for bile leak. She was transferred to [facility]. ERCP on 12/10/2024 revealed no evidence of bile leak or retained stones. A biliary sphincterotomy was performed and a 7 Fr x 9 cm double-pigtail biliary stent was placed. She is currently asymptomatic and has no drains. EGD was planned for biliary stent removal. Providers: Ed Richey MD, Mahin Christopher (Fellow) Referring MD: Medicines: See the Anesthesia [...] the patient. Procedure Code(s): --- Professional --- 84348, GC, Esophagogastroduodenoscopy, flexible, transoral; with removal of foreign body(s) Diagnosis Code(s): --- Professional --- Z46.59, Encounter for fitting and adjustment of other gastrointestinal appliance and device CPT copyright 2022 [employer]. All rights reserved. The codes documented in this report are preliminary and upon hospital coder review may be revised to meet current compliance requirements. Attending Participation: I was present and participated during the entire procedure, including non-bryant portions. Ed Richey MD 01/23/2025 3:06:33 PM This report has been signed electronically.Ed Richey MD Mahin Joaquimavarapu, Total Procedure Duration Time 0 hours 3 minutes 43 seconds Scope In: 2:41:36 PM Scope Out: 2:45:[address] [place] [address], [id number] [place] Attending Provider Unknown PROCEDURE/MINOR SURGI CHLOE ORDERABLES Final Result [facility] * Rhythm Strips - scan (12/15/2024 7:57 AM EDT) us Scanning Uchhim SCAN DOCS - NO RESULTS Final Res ult * (ABNORMAL) Renal Function Panel w/EGFR (12/14/2024 5:59 AM EDT) Only the most recent of6 resultswithin the time period is included. Sodium 141 133 - 146 mmol/L 12/14/2024 6:51 AM EDT [facility] Potassium 3.6 3.5 - 5.3 mmol/L 12/14/2024 6:51 AM EDT [facility] Chloride 105 98 - 110 mmol/L 12/14/2024 6:51 AM EDT [facility] CO2 28 21 - 33 mmol/L 12/14/2024 6:51 AM EDT [facility] Anion Gap 8 3 - 16 mmol/L 12/14/2024 6:51 AM EDT [facility] BUN 10 7 - 25 mg/dL 12/14/2024 6:51 AM EDT [facility] Creatinine 0.61 0.60 - 1.30 mg/dL 12/14/2024 6:51 AM EDT [facility] Glucose 88 70 - 100 mg/dL 12/14/2024 6:51 AM EDT [facility] Calcium 8.4(L) 8.6 - 10.3 mg/dL 12/14/2024 6:51 AM EDT [facility] Phosphorus 2.9 2.1 - 4.7 mg/dL 12/14/2024 6:51 AM EDT [facility] Albumin 3.1(L) 3.5 - 5.7 g/dL 12/14/2024 6:51 AM EDT [facility] Osmolality, Calculated 290 278 - 305 mOsm/kg 12/14/2024 6:51 AM EDT [facility] EGFR >90 12/14/2024 6:51 AM EDT [facility] Comment: As of 2021, the estimated GFR is calculated using the 2020 Chronic Kidney Disease Epidemiology Collaboration (CKD-EPI) equation. In line with the NKF-ASN Task Force Recommendations, this equation does not include a coefficient for race. A single eGFR value is calculated for each patient. The reference interval is >60 mL/min/1.73m2. eGFR values greater than 90 will be reported as >90mL/min/1.73m2. Reference: Hector C, Baudilio M, Sandrita DC, Tiffany ND, Liana CA, Nate LA, et al. A Unifying Approach for GFR Estimation: Recommendations of the NKF-ASN Task Force on Reassessing the inclusion of Race in Diagnosing Kidney Disease. Am J Kidney Dis. 2020. GFR is estimated using creatinine, age, and sex. Patient's values should be interpreted as a trend. Below 90 mL/min/1.73m2, the patient may have renal disease. For additional information: www.kidney.org Plasma 12/14/2024 5:59 AM EDT 12/14/2024 6:21 AM EDT us Miley Bernstein MD LAB BLOOD ORDERABLES Final Result [facility] [address] * (ABNORMAL) CBC, AM (12/14/2024 5:59 AM EDT) Only the most recent of6 resultswithin the time period is included. WBC 9.1 3.8 - 10.8 10E3/uL 12/14/2024 7:09 AM EDT [facility] RBC 3.95 3.80 - 5.10 10E6/uL 12/14/2024 7:09 AM EDT [facility] Hemoglobin 9.7(L) 11.7 - 15.5 g/dL 12/14/2024 7:09 AM EDT [facility] Hematocrit 29.5(L) 35.0 - 45.0 % 12/14/2024 7:09 AM EDT [facility] MCV 74.6(L) 80.0 - 100.0 fL 12/14/2024 7:09 AM EDT [facility] MCH 24.5(L) 27.0 - 33.0 pg 12/14/2024 7:09 AM EDT [facility] MCHC 32.8 32.0 - 36.0 g/dL 12/14/2024 7:09 AM EDT [facility] RDW 16.8(H) 11.0 - 15.0 % 12/14/2024 7:09 AM EDT [facility] Platelets 236 140 - 400 10E3/uL 12/14/2024 7:09 AM EDT [facility] MPV 8.1 7.5 - 11.5 fL 12/14/2024 7:09 AM EDT [facility] Whole Blood 12/14/2024 5:59 AM EDT 12/14/2024 6:21 AM EDT us Miley Bernstein MD LAB BLOOD ORDERABLES Final Result [facility] [address] [place] [address], [facility] * Magnesium, AM (12/14/2024 5:59 AM EDT) Only the most recent of5 resultswithin the time period is included. Magnesium 1.7 1.5 - 2.5 mg/dL 12/14/2024 6:51 AM EDT [facility] Plasma 12/14/2024 5:59 AM EDT 12/14/2024 6:21 AM EDT Miley Bernstein MD LAB BLOOD ORDERABLES Final Result Performing Organization Address [facility]/ZIP Co de Phone Number [facility] [address] [facility] * Syphilis Monitoring (RPR w Titer) (12/13/2024 2:01 PM EDT) RPR Monitoring Screen Non-Reacti ve Non-Reacti ve 12/14/2024 2:24 PM EDT [facility] Comment:In patients without clinical evidence of syphilis, a diagnosis of syphilis is suggested unlikely. If there is a clinical suspicion of syphilis the CDC recommends repeat testing in 2-4 weeks. Serum 12/13/2024 2:01 PM EDT 12/13/2024 2:08 PM EDT Francisca Issa MD LAB BLOOD ORDERABLES Final Resul t Performing Organization Address [facility]/ZIP Co de Phone Number [facility] [address] [facility] * HIV 1+2 Antibody/Antigen with Reflex (12/13/2024 2:01 PM EDT) HIV 1+2 AB/AGN Nonreactive Nonreactive 12/13/2024 2:56 PM EDT [facility] Serum 12/13/2024 2:01 PM EDT 12/13/2024 2:10 PM EDT Narrative [facility] - 12/13/2024 2:56 PM EDT \HIVRNR Francisca Issa MD LAB BLOOD ORDERABLES Final Resul t [facility] [address] [facility]. [address] * X-ray Comparison Images (12/13/2024 12:08 PM EDT) Only the most recent of4 resultswithin the time period is included. Narrative EXTERNAL - 12/13/2024 12:08 PM EDT Images associated with this accession number were presented to us for comparison to an examination performed here. us Provider Not In System IMG DIAGNOSTIC IMAGING OR DERABLES Final Result EXTERNAL * Chlamydia / Gonorrhoeae DNA Urine (12/13/2024 12:01 PM EDT) Neisseria gonorrhoeae DNA Urine Negative Negative 12/14/2024 12:02 PM EDT [facility] Comment:The presence of Chla mydia trachomatis and Neisseria gonorrhoeae DNA is detected by a U.S. Food and Drug Administration-approved amplification assay. Chlamydia Trachomatis DNA Urine Negative Negative 12/14/2024 12:02 PM EDT [facility] Urine 12/13/2024 12:0 1 PM EDT 12/13/2024 2:32 PM EDT us Francisca Issa MD BODY FLUIDS AND STOOLS ORDERABLE S Final Result Performing Organization Address City/[facility]/ZIP Co de Phone Number [facility] [address] * (ABNORMAL) Urinalysis w/Rfl to Microscopic (12/13/2024 11:37 AM EDT) Only the most recent of2 resultswithin the time period is included. Color, UA [place](A) Yellow,Straw 12/13/2024 12:05 PM EDT [facility] Clarity, UA Cloudy(A) Clear 12/13/2024 12:05 PM EDT [facility] Specific [place], UA 1.026 1.005 - 1.035 12/13/2024 12:05 PM EDT [facility] pH, UA 6.0 5.0 - 8.0 12/13/2024 12:05 PM EDT [facility] Protein, UA 30(A) Negative mg/dL 12/13/2024 12:05 PM EDT [facility] Glucose, UA Negative Negative mg/dL 12/13/2024 12:05 PM EDT [facility] Ketones, UA Negative Negative mg/dL 12/13/2024 12:05 PM EDT [facility] Bilirubin, UA Negative Negative 12/13/2024 12:05 PM EDT [facility] Blood, UA Large(A) Negative 12/13/2024 12:05 PM EDT [facility] Nitrite, UA Negative Negative 12/13/2024 12:05 PM EDT [facility] Urobilinogen, UA <2.0 0.2 - 1.9 mg/dL 12/13/2024 12:05 PM EDT [facility] Leukocyte Esterase, UA Small(A) Negative 12/13/2024 12:05 PM EDT [facility] RBC, UA >100(H) 0 - 3 /HPF 12/13/2024 12:05 PM EDT [facility] WBC, UA 83(H) 0 - 5 /HPF 12/13/2024 12:05 PM EDT [facility] Squam Epithel, UA 4 0 - 5 /HPF 12/13/2024 12:05 PM EDT [facility] Hyaline Casts, UA 4(H) 0 - 2 /LPF 12/13/2024 12:05 PM EDT [facility] Mucus, UA Present(A) None Seen /HPF 12/13/2024 12:05 PM EDT [facility] Urine 12/13/2024 11:3 7 AM EDT 12/13/2024 11:40 AM EDT us Miley Bernstein MD URINE ORDERABLES Final Res ult [facility] [address] * Urine culture (12/13/2024 11:37 AM EDT) Culture Result <10,000 cfu/mL Skin/Urogeni joesph [place]. No Further Workup. [facility] Midstream Urine URINE SPECIMEN / Unknown 12/13/2024 11:37 AM EDT 12/13/2024 12:07 PM EDT us Miley Bernstein MD MICROBIOLOGY - GENERAL ORD ERABLES Final Result [facility] [address] [place] [address], [facility] * CT Outside Film Review (12/12/2024 11:59 AM EDT) 12/12/2024 11:5 9 AM EDT Impressions [facility] - 12/13/2024 5:04 PM EDT IMPRESSION: Fluid collection within the gallbladder fossa in this patient who recently underwent laparoscopic cholecystectomy is consistent with developing abscess versus biloma. Approved by Lit Velasquez MD on 12/13/2024 3:19 PM EDT I have personally reviewed the images and I agree with this report. Report Verified by: Ai Servin MD at 12/13/2024 5:04 PM EDT Narrative [facility] - 12/13/2024 5:04 PM EDT PATIENT IDENTIFICATION: MARÍA BERGER ([id number]) 49 years old Female EXAM: SECONDARY INTERPRETATION CT OUTSIDE FILM REVIEW INDICATION: Right upper quadrant abdominal pain TECHNIQUE: Imaging performed at outside hospital per institution protocol. CONTRAST: IV FIELD OF VIEW: 50 cm COMPARISON: None available. FINDINGS: Lower chest: Bibasilar pleural thickening. Liver: Normal contour and attenuation. No focal observations. Gallbladder and biliary tree: Cholecystectomy with fluid/gas collection in the gallbladder fossa measuring 3.0 x 4.8 cm with significant surrounding fat stranding. No ductal dilation. Pancreas: Normal. Spleen: Normal. Adrenal glands: Normal. Kidneys/Ureters/Bladder: The kidneys enhance symmetrically. Bilateral renal cortical atrophy. No hydroureteronephrosis. Bilateral simple appearing cysts. Bilateral punctate nonobstructing stones. The bladder is collapsed. Gastrointestinal tract: Normal bowel caliber. The appendix is not visualized; however, there are no secondary signs to suggest appendicitis. Genital Organs: Normal. Lymphatics: No adenopathy. Abdominal Cavity: Significant fat stranding along the hepatic flexure with small amount of free fluid. Abdominal wall/soft tissues: Several linear areas of subcutaneous fat stranding along the anterior abdominal wall likely representing areas of recent laparoscopy port placement. Vasculature: The aorta is normal in caliber without atheromatous disease. Osseous structures: No acute fracture, dislocation, or suspicous lesion. Mild degenerative changes of the vertebral spine. Procedure Note Ai Servin MD - 12/13/2024 PATIENT IDENTIFICATION: MARÍA BERGER ([id number]) 49 years old Female EXAM: SECONDARY INTERPRETATION CT OUTSIDE FILM REVIEW INDICATION: Right upper quadrant abdominal pain TECHNIQUE: Imaging performed at outside hospital per institution protocol. CONTRAST: IV FIELD OF VIEW: 50 cm COMPARISON: None available. FINDINGS: Lower chest: Bibasilar pleural thickening. Liver: Normal contour and attenuation. No focal observations. Gallbladder and biliary tree: Cholecystectomy with fluid/gas collection inthe gallbladder fossa measuring 3.0 x 4.8 cm with significant surroundingfat stranding. No ductal dilation. Pancreas: Normal. Spleen: Normal. Adrenal glands: Normal. Kidneys/Ureters/Bladder: The kidneys enhance symmetrically. Bilateralrenal cortical atrophy. No hydroureteronephrosis. Bilateral simpleappearing cysts. Bilateral punctate nonobstructing stones. The bladder iscollapsed. Gastrointestinal tract: Normal bowel caliber. The appendix is notvisualized; however, there are no secondary signs to suggestappendicitis. Genital Organs: Normal. Lymphatics: No adenopathy. Abdominal Cavity: Significant fat stranding along the hepatic flexure withsmall amount of free fluid. Abdominal wall/soft tissues: Several linear areas of subcutaneous fatstranding along the anterior abdominal wall likely representing areas ofrecent laparoscopy port placement. Vasculature: The aorta is normal in caliber without atheromatousdisease. Osseous structures: No acute fracture, dislocation, or suspicous lesion.Mild degenerative changes of the vertebral spine. IMPRESSION: Fluid collection within the gallbladder fossa in this patient who recentlyunderwent laparoscopic cholecystectomy is consistent with developingabscess versus biloma. Approved by Lit Velasquez MD on 12/13/2024 3:19 PM EDT I have personally reviewed the images and I agree with this report. Report Verified by: Ai Servin MD at 12/13/2024 5:04 PM EDT Adarsh Khan MD IMG CT ORDERABLES Final Result [facility] * (ABNORMAL) Iron Studies (Iron + TIBC) (12/11/2024 8:55 AM EDT) Iron 36(L) 50 - 212 ug/dL 12/11/2024 9:57 AM EDT [facility] % Iron Saturation 15.6 15.0 - 55.0 % 12/11/2024 9:57 AM EDT [facility] TIBC 231(L) 265 - 497 ug/dL 12/11/2024 9:57 AM EDT [facility] Serum 12/11/2024 8:55 AM EDT 12/11/2024 9:25 AM EDT us Francisca Issa MD LAB BLOOD ORDERABLES Final Resul t Performing Organization Address City/[facility]/ZIP Co de Phone Number [facility] [address] * Ferritin (12/11/2024 8:55 AM EDT) Ferritin 120.7 11.0 - 306.8 ng/mL 12/11/2024 11:17 AM EDT [facility] Serum 12/11/2024 8:55 AM EDT 12/11/2024 9:25 AM EDT us Francisca Issa MD LAB BLOOD ORDERABLES Final Resul t Performing Organization Address City/[facility]/ZIP Co de Phone Number [facility] [address] [facility]. [address] * Fluoro ERCP S-I (12/10/2024 8:42 AM EDT) Anatomical Region Laterality Modality Abdomen Radiographic Renita ging 12/10/2024 8:42 AM EDT Impressions 12/10/2024 8:51 AM EDT IMPRESSION: For additional details please see the medical record for a procedural note by the performing physician. Report Verified by: Nish Panda MD at 12/10/2024 8:51 AM EDT Narrative 12/10/2024 8:51 AM EDT EXAM: FL ERCP S-I INDICATION: ENDO COMPARISON: None TECHNIQUE: Fluoroscopy was carried out without a radiologist in attendance to provide patient care necessary for a specific diagnostic or therapeutic procedure performed by a nonradiologist. Total fluoroscopy time: 3 minutes. FINDINGS: 13 fluoroscopic images were saved during ERCP. Procedure Note Nish Panda MD - 12/10/2024 EXAM: FL ERCP S-I INDICATION: ENDO COMPARISON: None TECHNIQUE: Fluoroscopy was carried out without a radiologist in attendanceto provide patient care necessary for a specific diagnostic or therapeuticprocedure performed by a nonradiologist. Total fluoroscopy time: 3minutes. FINDINGS: 13 fluoroscopic images were saved during ERCP. IMPRESSION: For additional details please see the medical record for a procedural noteby the performing physician. Report Verified by: Nish Panda MD at 12/10/2024 8:51 AM EDT us Ed Richey MD IM DIAGNOSTIC IMAGING ORDERABLE S Final Result * ERCP (12/10/2024 7:43 AM EDT) 12/10/2024 7:43 AM EDT Narrative [facility] - 12/10/2024 9:03 AM EDT [id number] Procedure Date: 12/10/2024 7:43 AM Patient Name: María Berger Date of : 1975 Admit Type: Inpatient Age: 49 Gender: Female Note Status: Finalized Attending MD: Ed Richey MD, [id number] Procedure: ERCP Indications: Suspected bile leak. The patient is a 49 y/o female who is currently hospitalized following transfer from [facility]. She s/p lap cholecystectomy on 12/03/2024 for acute cholecystitis. The procedure was uneventful and she was discharged on the same [...] for bile leak. She was transferred to [facility]. ERCP was planned today for further evaluation and management. Providers: Ed Richey MD Referring MD: Medicines: General Anesthesia, Indomethacin 100 mg AK Complications: No immediate complications. Procedure: After obtaining informed consent, the scope was passed under direct vision. Throughout the procedure, the patient's blood pressure, pulse, and oxygen saturations were monitored continuously. The was introduced through the mouth, and advanced to the duodenum and used to inject contrast into the bile duct. The ERCP was accomplished without difficulty. The patient tolerated the procedure well. Findings: The procedure was performed with the patient in the supine position. A hair spring winder film of the abdomen was obtained. Surgical clips, consistent with a previous cholecystectomy, were seen in the area of the right upper quadrant of the abdomen. The esophagus was successfully intubated under direct vision. The scope was advanced to a normal major papilla in the descending duodenum without detailed examination of the pharynx, larynx and associated structures, and upper GI tract. The upper GI tract was grossly normal. Initial attempts to cannulate the bile duct using an Autotome 39 sphincterotome preloaded with a 0.025 inch Visiglide guidewire resulted in several cannulations of the pancreatic duct. Contrast injection was intentionally limite. I personally interpreted the bile duct and pancreatic duct images. The main pancreatic duct appeared normal in the head and body. The guidewire was left in the pancreatic duct and a second angle-tip guidewire was used to selectively cannulate the bile duct using a dual wire technique. The pancreatic guidewire was removed. Contrast extended to the entire biliary tree. Cholangiogram images revealed a normal common duct, cystic duct remnant, and bilateral intrahepatic ducts. No bile leak or retained stones was seen. A biliary sphincterotomy was performed using ERBE endocut settings. No bleeding was seen. Multiple balloon sweeps of the common duct showed no evidence of retained common duct stones. A single 7 Fr x 9 cm double-pigtail plastic biliary stent was placed to assure drainage. Attempts to place a second biliary stent were unsuccessful due to the small diameter of the bile duct. The stomach was aspirated, and the procedure terminated. Estimated Blood Loss: Estimated blood loss: none. Impression: - Normal post-cholecystectomy cholangiogram. No evidence of bile leak or retained common duct stones was seen. - A biliary sphincterotomy was performed. - Successful placemen of a single 7 Fr x 9 cm double-pigtail plastic biliary stent Recommendation: - Return patient to hospital sol for ongoing care. - Advance diet as tolerated today. - Continue present medications. - EGD and 6-8 weeks for biliary stent removal. Contact Sona Jackson RN, at to schedule. Note: The patient received rectal indomethacin and lactated Ringer's solution IV to minimize the risk of procedure-related pancreatitis. Procedure Code(s): --- Professional --- 89440, Endoscopic retrograde cholangiopancreatography (ERCP); with placement of endoscopic stent into biliary or pancreatic duct, including pre- and post-dilation and guide wire passage, when performed, including sphincterotomy, when performed, each stent 17837, Combined endoscopic catheterization of the biliary and pancreatic ductal systems, radiological supervision and interpretation Diagnosis Code(s): --- Professional --- Z90.49, Acquired absence of other specified parts of digestive tract CPT copyright 2022 [employer]. All rights reserved. The codes documented in this report are preliminary and upon hospital coder review may be revised to meet current compliance requirements. Attending Participation: I personally performed the entire procedure. Ed Richey MD 12/10/2024 9:03:15 AM This report has been signed electronically.Ed Richey MD Total Procedure Duration Time 0 hours 34 minutes 26 seconds Scope In: 8:03:57 AM Scope Out: 8:38:[address] [place] [address], [id number] us Attending Provider Unknown PROCEDURE/MINOR SURGI CHLOE ORDERABLES Final Result [facility] * (ABNORMAL) Differential (12/10/2024 4:06 AM EDT) Neutrophils Relative 84.5(H) 40.0 - 80.0 % 12/10/2024 5:15 AM EDT [facility] Lymphocytes Relative 8.7(L) 15.0 - 45.0 % 12/10/2024 5:15 AM EDT [facility] Monocytes Relative 5.1 0.0 - 12.0 % 12/10/2024 5:15 AM EDT [facility] Eosinophils Relative 1.6 0.0 - 8.0 % 12/10/2024 5:15 AM EDT [facility] Basophils Relative 0.1 0.0 - 1.0 % 12/10/2024 5:15 AM EDT [facility] nRBC 0 0 - 0 /100 WBC 12/10/2024 5:15 AM EDT [facility] Neutrophils Absolute 9,042(H) 1,520 - 8,640 /uL 12/10/2024 5:15 AM EDT [facility] Lymphocytes Absolute 931 570 - 4,860 /uL 12/10/2024 5:15 AM EDT [facility] Monocytes Absolute 546 0 - 1,296 /uL 12/10/2024 5:15 AM EDT [facility] Eosinophils Absolute 171 0 - 864 /uL 12/10/2024 5:15 AM EDT [facility] Basophils Absolute 11 0 - 108 /uL 12/10/2024 5:15 AM EDT [facility] Whole Blood 12/10/2024 4:06 AM EDT 12/10/2024 5:03 AM EDT us Jessie Buenrostro MD LAB BLOOD ORDERABLES Final Re sult [facility] [address] [place] [address], [facility] * ECG 12 lead (MUSE) (12/09/2024 7:01 PM EDT) 12/09/2024 7:01 PM EDT Narrative MUSE - 12/12/2024 2:05 PM EDT Ventricular Rate: 66 BPM Atrial Rate: 66 BPM P-R Interval: 156 ms QRS Duration: 96 ms QT: 408 ms QTc: 427 ms P [place]: 56 degrees R [place]: 55 degrees T [place]: 49 degrees Diagnosis Line: NORMAL SINUS RHYTHM ^ NORMAL ECG ^ No previous ECGs available ^ Confirmed by David SANZ MD ([id number]) on 12/12/2024 2:05:09 PM Jessie Buenrostro MD ECG ORDERABLES Final Result Performing Organization Address [facility] de Phone Number MUSE * (ABNORMAL) Hepatic Function Panel, STAT (12/09/2024 6:53 PM EDT) Total Bilirubin 0.5 0.0 - 1.5 mg/dL 12/09/2024 7:29 PM EDT [facility] Bilirubin, Direct 0.09 0.00 - 0.40 mg/dL 12/09/2024 7:29 PM EDT [facility] AST 9(L) 13 - 39 U/L 12/09/2024 7:29 PM EDT [facility] ALT 12 7 - 52 U/L 12/09/2024 7:29 PM EDT [facility] Alkaline Phosphatase 66 36 - 125 U/L 12/09/2024 7:29 PM EDT [facility] Total Protein 6.5 6.4 - 8.9 g/dL 12/09/2024 7:29 PM EDT [facility] Albumin 3.2(L) 3.5 - 5.7 g/dL 12/09/2024 7:29 PM EDT [facility] Bilirubin, Indirect 0.41 0.00 - 1.10 mg/dL 12/09/2024 7:29 PM EDT [facility] Plasma 12/09/2024 6:53 PM EDT 12/09/2024 7:01 PM EDT us Jessie Buenrostro MD LAB BLOOD ORDERABLES Final Re sult [facility] [address] [place] [address], [facility] from Last 3 Months Insurance [employer] [facility] OTHER MANAGED MEDICARE Advance Directives For more information, please contact: [phone] * Full Code (Latest Code Status on File) Date Activated Date Inactivated Comments 12/09/2024 6:31 PM 12/14/2024 8:56 PM Care Teams Staffing Rn Relationship Specialty Start Date End Date Mónica Adler [place] [address] [place] [address] PCP - General Kettle Firer 12/12/24
--- OUTSIDE RECORDS SUMMARY | 2025-03-03 17:50 | XMS_ITS | Clinical Summary ---
Author Organization [facility] Address [address] [place] [address] Phone Care Team Providers Care Area Operations Director Name Role Phone Mónica Adler FILI Primary Care Provider Allergies No known active allergies Medications calcium carbonate-vitami n D (CALCIUM-VITAMIN D) 500 mg(1,250mg) -200 unit Oral TabletIndication s:Hypocalcemia Take 1 Tablet by mouth 2 times daily. 60 Tablet 3 12/05/19 21 Active Additional Information Patient not taking.Reported on 11/10/2024 FARXIGA 5 mg Oral Tablet Take 5 mg by mouth daily. 08/13/19 24 Active bumetanide (BUMEX) 2 mg Oral TabletIndication s:edema Take 2 mg by mouth daily as needed for Other (water retention.). Indications: visible water retention Active baclofen 5 mg Oral Tablet Take 1 Tablet by mouth 3 times daily. 10/21/19 24 Active rosuvastatin (CRESTOR) 5 mg Oral TabletIndication s:Dyslipidemia Take 1 Tablet by mouth nightly. 90 Tablet 3 05/09/19 25 Active iron sucrose (VENOFER) 200 mg iron/10 mL IV Solution Inject 10 mL into the vein every 7 days. 50 mL 07/04/19 25 Active Additional Information Patient not taking.Reported on 11/10/2024 tirzepatide, weight loss, (ZEPBOUND) 2.5 mg/0.5 mL SubQ Pen InjectorIndicati ons:ISAAC (obstructive sleep apnea),Nocturnal hypoxia Inject 2.5 mg under the skin once a week. 2 mL 10/26/19 25 Active Additional Information Patient not taking.Reason: hasnt started yet awaiting prior approval, Reported on 11/10/2024 LEVOthyroxine (SYNTHROID) 75 mcg Oral TabletIndication s:Abnormal thyroid function test Take 1 Tablet by mouth daily. 100 Tablet 2 10/31/19 25 Active metoprolol succinate ER (TOPROL-XL) 100 mg Oral Tablet Sustained Release 24 hrIndications:Es sential hypertension Take 1 Tablet by mouth daily. 90 Tablet 3 11/10/19 25 Active nystatin (MYCOSTATIN) Top Cream Apply topically 2 times daily. to the affected area Active fluticasone propionate (FLONASE) 50 mcg/actuation Nasl Ackley, SuspensionIndica tions:Seasonal allergic rhinitis, unspecified trigger 1 Ackley by Nasal route daily. 1 Each 2 11/11/19 25 Active ALPRAZolam (XANAX) 0.5 mg Oral TabletIndication s:Generalized anxiety disorder Take 1 Tablet by mouth 2 times daily as needed for Anxiety. 60 Tablet 1 12/13/19 25 Active sertraline (ZOLOFT) 100 mg Oral TabletIndication s:Generalized anxiety disorder Take 2 Tablets by mouth daily. 180 Tablet 2 12/26/19 25 Active diclofenac sodium (VOLTAREN) 50 mg Oral Tablet, Delayed Release (E.C.)Indication s:Degenerative disc disease, cervical,Degener ative disc disease, lumbar TAKE 1 TABLET BY MOUTH TWICE DAILY WITH FOOD NEEDED FOR PAIN 60 Tablet 2 01/17/20 25 Active cyclobenzaprine (FLEXERIL) 10 mg Oral TabletIndication s:Degenerative disc disease, cervical,Degener ative disc disease, lumbar Take 1 Tablet by mouth every 8 hours as needed. for muscle spasms 30 Tablet 1 02/22/20 25 Active albuterol (PROVENTIL HFA;VENTOLIN HFA) 90 mcg/actuation Inhl HFA Aerosol InhalerIndicatio ns:History of wheezing Inhale 2 Puffs into the lungs every 4 hours as needed. for wheezing 18 g 02/22/20 25 Active cyclobenzaprine (FLEXERIL) 10 mg Oral TabletIndication s:Degenerative disc disease, cervical,Degener ative disc disease, lumbar Take 1 Tablet by mouth every 8 hours as needed. for muscle spasms 30 Tablet 1 08/19/19 24 025 Discontin ued(Reord er) albuterol (PROVENTIL HFA;VENTOLIN HFA) 90 mcg/actuation Inhl HFA Aerosol InhalerIndicatio ns:History of wheezing Inhale 2 Puffs into the lungs every 4 hours as needed. for wheezing 18 g 6 12/13/19 25 025 Discontin ued(Reord er) Active Problems Patient Care Coordination No te Formatting of this note migh t be different from the original. [facility] [place] Controlled substance- alprazolam 0.5 Joseph- as expected [...] Overview (10/22/2023): Followed by spine clinic at [facility] Assessment & Plan (10/22/2023 4:49 [...] AM EST): Try to get results from [facility] - states she had imaging [...] Prescription Drug Monitoring Program (i.e JOSEPH, TORO, OALUTHER): - report reviewed today Urine Drug Screen: [...] heart failure 08/18/2023 06/07/2024 Overview (08/18/2023): Saw [facility] cards. Per pt she has normal echo, [...] (10/22/2023 4:48 PM EDT): Being followed by [facility]. I believe she would be a [...] Encounters Date Type Department Care Team Description 02/19/2025 Refill SEP [address] [place] [address] Mónica Adler, FILI Medication Refill 02/19/[address] [place] [address] Mariusz Junior MD Medication Refill 01/15/[address] [place] [address] Mariusz Junior MD Medication Refill 12/25/[address] [place] [address] Mariusz Junior MD Medication Refill 12/12/2024 Orders Only [address] [place] [address] Mónica Adler, FLAT KNITTER HELPER Left ovarian cyst (Primary Dx) 12/11/2024 Refill [place] [address] [place] [address] Mónica Adler, FLAT KNITTER HELPER Medication Refill 12/11/[address] [place] [address] Mariusz Junior MD Medication Refill from Last 3 Months Immunizations [...] Father Tom leap Heart Attack Father Tom greenfield age 67 - [place] Vision Loss Father Tom [place] No Known [...] file Not on file Not on file Last Filed Vital Signs [...] 2 - CpG 2-dose series) 2023 04/06/2023 Cervical Cancer Screening 08/07/2024 Pap Smear 08/07/2024 08/07/2021 COVID-19 Vaccine (1 - 2024-2 6 season) 2024 Influenza Vaccine (#1) 2024 , 03/21/2020 Breast Cancer Screening 12/30/2024 12/31/19, 12/18/2020, [...] Screening for malignant neoplasm of the rectum TRANSIT PLANNING MANAGER CYTOLOGY REQUEST (PAP ONLY) Routine 08/07/2021 1:45 [...] (Haider Kelly al, N Engl J Med 2014;370(14):5701-1619) The normal value (reference range) for this assay is negative. COLOGUARD RE-SCREENING RECOMMENDATION: Periodic colorectal cancer screening is an important part of preventive healthcare for asymptomatic individuals at average risk for colorectal cancer. Following a negative Cologuard result, the [employer] [employer] Society and U.S. Multi-Society Task Force screening guidelines recommend a Cologuard re-screening interval of 3 years. References: [employer] [employer] Guideline for Colorectal Cancer Screening: https://www.cancer.org/cancer/kiyiv-wbpupb-tsqmxe/sbpbeaafw-fyfduupuq-luhsbza/ac s-rec ommendations.html.; Calin CORDERO, Mary EMERSON, Marco Antonio CARTWRIGHT, Colorectal Cancer Screening: Recommendations for Physicians and Patients from the U.S. Multi-Society Task Force on Colorectal Cancer Screening , Am J Gastroenterology 2017; 112:6549-5678. TEST DESCRIPTION: Composite algorithmic analysis of stool [...] Phillips et al, N Engl J Med 2014;370(14):3601-3983.) Cologuard may produce a false negative or false positive result (no colorectal cancer or precancerous polyp present at colonoscopy follow up). A negative Cologuard test result does not guarantee the absence of CRC or advanced adenoma (pre-cancer). The current Cologuard screening interval is every 3 years. ([employer] [employer] Society and U.S. Multi-Society Task Force). Cologuard performance data in a 10,000 patient pivotal study using colonoscopy as the reference method can be accessed at the following location: www.[facility].AG[employer]obal Tech/results. Additional description of the Cologuard test process, warnings and precautions can be found at www.[employer].com. Stool 09/16/2022 10:3 0 PM EDT 09/18/2022 8:25 PM EDT Mónica Adler APRN [employer]ENCE - ORDERABLES Final Result [employer] [address] [email or web address] [address] [facility] * TRANSIT PLANNING MANAGER CYTOLOGY REQUEST (PAP ONLY) (08/07/2021 1:45 PM EDT) CASE REPORT Gynecologic Cytology Report Case: [id number] Authorizing Provider: Mónica Adler APRN Collected: 08/07/2021 1345 [place] [facility] [place] [facility] Received: 08/07/2021 1345 First Screen: Sandra Calhoun CT Rescreen: Yohana Richey CT Specimen: LIQUID-BASED PAP - CERVICAL/ENDOCERV ICAL, Cervix, Endocervical 08/12/2021 3:28 PM EDT [facility] PAP FINAL DIAGNOSIS Negative for intraepithelial lesion or malignancy 08/12/2021 3:28 PM EDT [facility] at 1528 EDT MICROSCOPIC DESCRIPTION Microscopic examination is performed and the findings corroborate the diagnosis. 08/12/2021 3:28 PM EDT [facility] PAP SMEAR ADEQUACY Satisfactory for evaluation 08/12/2021 3:28 PM EDT [facility] SPECIMEN LIMITATIONS Obscured by inflammation 08/12/2021 3:28 PM EDT [facility] PAP ORGANISMS NOTED Abundant bacteria present. 08/12/2021 3:28 PM EDT [facility] ENDOCERVICAL T-ZONE Transformation zone absent. 08/12/2021 3:28 PM EDT [facility] EMBEDDED IMAGES 3:28 PM EDT [facility] PAP DISCLAIMER This case was not [...] definitive therapy. Processed using the ThinPrep Heel Stiffener Automated cytology screening device (Tinypass). 08/12/2021 3:28 PM EDT [facility] [employer] [facility] Thin Prep ENDOCERVICAL STRUCTURE / Unknown 08/07/2021 1:45 PM EDT 08/07/2021 1:45 PM EDT Mónica Adler FLAT KNITTER HELPER CYTOLOGY ORDERABLES Final R esult [facility] [address] [place] [address] from Last 3 Months or Most Recently Relevant to Health Maintenance Insurance [facility] DUAL COMPLETE HMO [place] [facility] [place] [address] [facility] DUAL COMPLETE HMO [place] [facility] [place] Care Teams Area Operations Director Relationship Specialty Start Date End Date Mónica [place] [address] [place] [address] PCP - General Nurse Practitioner-Family 12/08/16
--- OUTSIDE RECORDS SUMMARY | 2025-03-03 17:50 | XMS_ITS | Encounter Summary ---
Author Organization [place] [address] Care Team Providers Care Internal Recruiter Name Role Phone Mónica Adler FILI Primary Care Provider [phone] Reason for Visit * Reason Comments Medication Refill Encounter Details Date Type Department Care Team (Late st Contact Info) Description 01/15/2025 Refill SEP [facility] [address] [address] Mariusz Junior MD [address] [place] [address] [place] [address] Medication Refill Social History Tobacco Use Types [...] FOOD NEEDED FOR PAIN 60 Tablet 2 01/16/2025 documented in this encounter Plan of Treatment [...] TWICE DAILY WITH FOOD NEEDED FOR PAIN 10/11/2024 01/16/2025 documented as of this encounter Additional Health Concerns Assessment Noted Time PHQ-9 Depression Total Score: 11 025 2:50 PM EDT PHQ-2 Depression Total Score: 4 11/11/19 25 2:50 PM EDT documented as of this encounter Care Teams Internal Recruiter Relationship Specialty Start Date End Date Mónica Adler APRN [address] [place] [address] PCP - General Nurse Practitioner-Family 12/08/16 documented as of this encounter
[2025-03-03 17:55] LABS: Hematocrit 40.4 % (37.0-47.0); Hemoglobin 12.4 g/dL (12.2-16.2); Immature Granulocytes % 0.3 %; Mean Corpuscular HGB Conc 30.7 g/dL (31.8-35.4); Mean Corpuscular Hemoglobin 24.7 pg (27.0-31.2); Mean Corpuscular Volume 80.5 fl (81-99); Nucleated Red Blood Cells % 0 %; Platelet Count 265 K/mm3 (142-424); Red Blood Count 5.02 M/mm3 (4.20-5.40); Red Cell Distribution Width-SD 43.7 fL; White Blood Count 11.8 K/mm3 (4.8-10.8)
[2025-03-03 17:58] LABS: Bacteria,Urine Trace /lpf
[2025-03-03] MEDS: MORPHINE 4MG/ML SYRINGE 4 MG IV (18:09)
[2025-03-03] MEDS: ONDANSETRON 4MG/2ML VIAL 4 MG IV (18:09)
[2025-03-03] MEDS: 0.9 % SODIUM CHLORIDE 1000ML 1,000 ML 999 ML IV (18:09)
[2025-03-03 18:13] LABS: Alanine Aminotransferase 22 U/L (12-78); Albumin Level 4.5 g/dl (3.5-5.0); Albumin/Globulin Ratio 1.3 (1.1-1.8); Alkaline Phosphatase 103 U/L (38-126); Anion Gap 11.1 mEq/L (5-15); Aspartate Amino Transferase 28 U/L (14-36); Bilirubin,Total 0.4 mg/dl (0.2-1.3); Blood Urea Nitrogen 23 mg/dl (7-17); Calcium 9.2 mg/dl (8.4-10.2); Carbon Dioxide 28 mmol/L (22.0-30.0); Chloride 104 mmol/L (98-107); Creatinine Clearance Estimated 76 mL/min (50-200); Creatinine,Serum 0.90 mg/dl (0.52-1.04); Estimated Glomerular Filt Rate 67 ml/min (>60); GFR (African American) 81 ML/MIN (>60); Globulin 3.5 g/dL (1.3-3.2); Glucose 109 mg/dl (74-100); Potassium 4.1 mmoL/L (3.5-5.1); Sodium 139 mmol/L (136-145); Total Protein,Serum 8.0 g/dl (6.3-8.2)
[2025-03-03 18:18] LABS: Urine Pregnancy, HCG Qual. Negative (Negative)
[2025-03-03 18:19] LABS: Activated Partial Thrombo Time 26.9 seconds (22.8-30.6); INR 0.98 (0.9-1.1); Prothrombin Time 10.9 seconds (10.1-12.5)
[2025-03-03] MEDS: IOPAMIDOL-370 (76%);100ML BOTTLE 75 ML IV (19:03)
[2025-03-03] MEDS: SODIUM CHLORIDE 0.9% 10ML SYR (RAD ONLY) 10 ML IV (19:03)
[2025-03-03 19:33] LABS: Hepatitis C Ab Qual. W/ RFX NEGATIVE (Negative)
--- NOTE | 2025-03-03 20:12 | ECG_ITS ---
APPROVED REPORT Exam: Resting ECG HR:62 bpm ECG Measurements Heart Rate 62 AXES OH 142 P 9 QRSd 94 QRS 39 QT 412 T 41 QTc 416 Conclusion Normal sinus rhythm Normal axis Normal intervals No STEMI Electronically signed by : Cordell Owens, 03/03/2025 22:08:01
[2025-03-03 20:17] LABS: Lipase 134 U/L (23-300)
== END 2025-03-03 20:45 | disposition home or self-care (01) ==
PROVIDERS: Nurse Practitioner; Emergency Provider Student in an Organized Health Care Education/Training Program; PCP Nurse Practitioner
DX: R10.11 Right upper quadrant pain (principal); R10.12 Left upper quadrant pain; R35.0 Frequency of micturition; N20.0 Calculus of kidney
CPT/HCPCS: 74177; 80053; 81001; 81025; 83690; 85025; 85610; 85730; 86803; 87389; 87491; 87591; 87661; 93005; 96361; 96374; 96375; 99285; J2270; J2405; J7030; Q9967